=== PATIENT | male | born 1945 | race Two or more races ===

== ENCOUNTER → 2022-03-31 | Outpatient (CLI) | payer MEDICARE | END | disposition home or self-care (01) | LOC: LABWHC1 07:46 | PROVIDERS: ATTEND Urology | DX: C61 Malignant neoplasm of prostate (principal) | CPT/HCPCS: 36415; 84153 ==

== ENCOUNTER → 2023-03-16 | Outpatient (CLI) | payer MEDICARE ==
[2023-03-16 16:06] LABS: Prothrombin Time 10.2 sec (9.0-12.0)
[2023-03-16 22:22] LABS: HCT 40.3 % (37.2-50.0); HGB 13.5 d/dL (12.0-17.0); MCH 32.1 pg (27.0-32.0); MCHC 33.5 d/dL (32.0-37.0); MCV 95.7 FL (80.0-97.0); Mean Platelet Volume 10.4 FL (9.5-12.2); NRBC Per 100 WBC 0 X 10*3/uL (0.00-0.01); Platelet Count 191 X 10*3/uL (140-440); RBC 4.21 X 10*6/uL (4.10-5.60); RDW 13.4 % (11.5-14.5); WBC 6.96 X 10*3/uL (4.50-10.00)
[2023-03-17 00:19] LABS: ALT 29 U/L (8-49); AST 30 U/L (13-35); Albumin 4.6 d/dL (3.8-4.9); Albumin/Globulin Ratio 2.19 Ratio (1.60-3.17); Alkaline Phosphatase 65 U/L (41-126); BUN/Creat Ratio 16.38 Ratio (12.00-20.00); Blood Urea Nitrogen 21.3 mg/dL (9.0-27.0); Calcium 9.4 mg/dL (8.7-10.3); Carbon Dioxide 21.5 mmol/L (21.6-31.8); Chloride 102 mmol/L (96-109); Globulin 2.1 d/dL (1.6-3.3); Glucose 207 mg/dL (70-110); Potassium 4.6 mmol/L (3.5-5.5); Sodium 140 mmol/L (135-145); Total Bilirubin 0.7 mg/dL (0.3-1.2); Total Protein 6.7 d/dL (6.2-8.2)
[2023-03-17 04:27] LABS: Appearance,Urine Clear (Clear); Bacteria,Urine None Seen (None Seen); Bilirubin,Urine Negative (Negative); Blood,Urine Negative (Negative); Color,Urine Dark Yellow (Yellow); Ketones,Urine Trace (Negative); Nitrite,Urine Negative (Negative); PH, Urine 5.5; Specific Gravity,Urine 1.024 (1.001-1.030)
== END | disposition home or self-care (01) ==
LOC: LABPAT 14:14
PROVIDERS: ATTEND Orthopaedic Surgery
DX: Z01.812 Encounter for preprocedural laboratory examination (principal); M16.11 Unilateral primary osteoarthritis, right hip
CPT/HCPCS: 36415; 80053; 81001; 85027; 85610; 85730; 87070; 93005

== ENCOUNTER 2023-03-24 05:33 | Day surgery (SDC) | payer MEDICARE ==
[2023-03-18 12:11] VITALS: BMI 34.0
[~2023-03-24 05:33] MED LIST: ACETAMINOPHEN TAB 500 MG TAB PO PRN; GABAPENTIN 300 MG CAP PO PRN; MELOXICAM 7.5 MG TAB PO PRN; TRANEXAMIC 1,000 MG/100ML-NACL 1,000 MG in SALINE 1 100ML.BAG IVPB PRN
[2023-03-24] MEDS ORDERED: ONDANSETRON 4 MG/2 ML VIAL ONE (06:02)
[2023-03-24] MEDS ORDERED: LACTATED RINGERS 1,000 ML IV ONE ×2 (06:06→08:02)
[2023-03-24] MEDS ORDERED: DEXAMETHASONE SOD PHOSPHATE 4 MG/ML 1 ML VIAL IVP ONE ×2 (06:07→06:44)
[2023-03-24 06:28] LABS: Glucose,Whole Blood 213 mg/dL (70-110)
[2023-03-24] MEDS ORDERED: MIDAZOLAM 2 MG/2 ML VIAL IVP ONE (06:35)
[2023-03-24] MEDS ORDERED: fentaNYL (PF) 50 MCG/ML 2 ML AMP IVP ONE (06:35)
[2023-03-24] MEDS ORDERED: INSULIN ASPART (NovoLOG) 100 UNIT/ML VIAL SQ ONE (06:45)
[2023-03-24] MEDS ORDERED: PROPOFOL 10 MG/ML 20 ML VIAL IV ONE (06:59)
[2023-03-24] MEDS ORDERED: ROPIVACAINE 5 MG/ML 30 ML VIAL ONE (06:59)
[2023-03-24] MEDS ORDERED: MIDAZOLAM 2 MG/2 ML VIAL ONE (06:59)
[2023-03-24] MEDS ORDERED: TRANEXAMIC 1,000 MG/100ML-NACL PREMIX BAG ONE (06:59)
[2023-03-24] MEDS ORDERED: ceFAZolin 1,000 MG in SODIUM CHLORIDE 0.9% 1,000 ML IRRIGATION ONE (06:59)
[2023-03-24] MEDS ORDERED: fentaNYL (PF) 50 MCG/ML 2 ML AMP ONE (06:59)
--- NOTE | 2023-03-24 07:24 | P.ANPRN ---
Procedure Note - Anesthesia - Nerve Block Performed Right Magen Single Time Out Performed: Yes ([id number]) Date of Procedure: 03/24/23 Procedure Start Time: 06:35 Procedure Stop Time: 06:39 Location of Patient: PreOp Indication: Acute Post-Operative Pain, Requested by Surgeon Specifically requested for management of pain by DrAkila: Chris Banks Sedation Type: Sedate with meaningful contact maintained Preparation: Sterile Prep, Sterile Dressing Position: Supine Catheter: None Needle Types: Pajunk Needle Gauge: 21 Ultrasound used to visualize needle placement: Yes Ultrasound used to observe medication spread: Yes Injectate: 0.5% Ropivacaine (see comment for volume) (30cc) Blood Aspirated: No Pain Paresthesia on Injection Noted: No Resistance on Injection: Normal Image Stored and Saved: Yes Events: Uneventful and Well Tolerated
[2023-03-24] MEDS ORDERED: ROPIVACAINE 5 MG/ML 30 ML VIAL MISCELLANE ONE ×2 (07:29→08:01)
--- NOTE | 2023-03-24 08:09 | P.OP ---
Date of Procedure: 03/24/23 Preoperative Diagnosis: Severe osteoarthritis right hip Postoperative Diagnosis: Severe osteoarthritis right hip Procedure(s) Performed: Right total hip arthroplasty with a direct anterior approach Implants: [employer] Polarstem standard size 4 with a collar [employer] R3, 3 hole hemispherical acetabular shell, 54 mm [employer] Reflection 6.5 mm cancellus screw, 20 mm 2 [employer] R3, XLPE 20 acetabular liner [employer] Oxinium femoral head 36 mm, +0 All components were press-fit. The articulation is Oxinium on polyethylene. Anesthesia: spinal Surgeon: John Young [employer] Aircraft Mechanic #1: Margaret Macdonald Estimated Blood Loss (ml): 100 Pathology: none sent Condition: stable Disposition: PACU Indications for Procedure: After failure of conservative treatment we discussed the surgical and nonsu rgical treatment options at length. Patient wishes to proceed with a total hip arthroplasty with a direct anterior approach. Complications specific to this procedure were discussed at length, including but not limited to infection, leg length discrepancy, dislocation, nerve injury, and fracture. Covid-19 was also discussed at length with the patient, and they are aware of the current policies and procedures. The patient was given the option of delaying surgery, but they elect to proceed knowing these risks. Patient is aware of all these complications and informed consent was obtained Operative Findings: The operative findings are consistent with severe osteoarthritis of the right hip Description of Procedure: The patient was seen and evaluated in the preoperative area and the consent was reviewed. The operative site was marked with a skin marker. The patient verified the procedure and operative site. A MISA block was placed by anesthesia in the preoperative area. The patient was then brought to the operating room and given preoperative antibiotics intravenously. 1 g of Tranexamic acid was also given intravenously. A spinal anesthetic was administered by the anesthesia department. The patient was then placed on the [place] table with the bony prominences well-padded. The hip area was then prepped with a ChloraPrep solution and draped in the usual sterile fashion. A universal timeout was then performed, which confirmed the patient's name, surgical site, ALLERGIES, and procedure being performed on the consent. Next the incision site was located at 1 cm distal and 4 cm lateral to the anterior superior iliac spine. The skin and subcutaneous tissues were sharply incised. Incision was carefully dissected down to the fascia overlying the tensor fascia anthony muscle. This fascia was then incised in line with the muscle fibers. Care was taken to stay laterally in order to avoid injuring the lateral femoral cutaneous nerve. Next, using blunt finger dissection, the tensor fascia anthony muscle was dissected off its investing fascia. The muscle was then carefully retracted laterally with a cobra retractor over the lateral neck of the femur. Next, the circumflex vessels were identified and cauterized using the Aquamantis device. The anterior hip capsule was then exposed. The capsule was then opened and an inverted T fashion. The retractors were then placed intracapsularly. The retractors were maintained intracapsular throughout the procedure. The proximal femur was then visualized. Fluoroscopic x-rays were then taken in order to evaluate the preoperative leg lengths. A small amount of traction was placed on the leg. The femoral neck was then osteotomized at the appropriate level above the lesser trochanter. A small wedge of bone was then removed from the remaining femoral head. Next, using a corkscrew the femoral head was removed from the acetabulum. On gross visual inspection, the femoral head had complete loss of articular cartilage and multiple periarticular osteophytes. The femoral head was then measured. Attention was then turned to the acetabulum. The acetabulum was exposed and any remaining labrum was excised. Sequential reaming of the acetabulum was performed using fluoroscopic guidance until there was a good bed of bleeding cancellus bone. When the appropriate size was reached, a trial was then placed. The position and fit of the trial was checked with fluoroscopy. The trial was then removed. Then, using fluoroscopic guidance, the final implant was impacted at 20 of anteversion and 40 of abduction, and fully seated in the acetabulum. 2 screws were then placed in the acetabulum. Again fluoroscopy was used to check position of the screws. Next, the liner was then impacted, with a 20 elevated liner located in the anterior superior quadrant. Component locking was confirmed. Attention was then directed to the femur. With the aid of the [place] table, the femur was externally rotated to approximately 130, extended, and adducted under the opposite leg. A side hook was then placed under the proximal femur, and the side hook elevator was used to elevate the proximal femur while releasing the capsule. Retractors were then placed. A capsular release was performed, as well as a release of the conjoined tendon, which afforded excellent v isualization of the proximal femur. Next, a box osteotome was used to lateralize the proximal femur. A decorator hand was then used to locate the femoral canal. Sequential broaching was then performed with appropriate size which afforded excellent fixation in the proximal femur. A trial was then placed with appropriate head and neck, and the hip was gently reduced with the aid of the [place] table. Fluoroscopy was then used to check position of the components, as well as to evaluate the leg lengths and offset. The leg lengths and offset were measured as closely as possible to ensure stability of the hip. The hip was then gently dislocated and the trials were then removed. Final implants were then impacted and the hip was again reduced. Final fluoroscopic x-rays confirmed that the components were in anatomic position. The leg lengths and offset were measured and were found to coincide with the trial measurements. The hip was also taken through range of motion, and found to be stable. The hip was then copiously irrigated with antibiotic solution with pulsatile lavage. The hip was then irrigated with Irrisept solution. The soft tissues were then injected with a ropivacaine solution. A second dose of 1 g of Tranexamic acid was also given intravenously. The fascia was then closed with 2-0 strata fix suture. The subcutaneous tissue was closed with 3-0 Vicryl. The subcuticular tissue was closed with 3-0 strata fix suture. The skin was then closed with Exofin skin glue. After the glue and dried, and Optifoam silver impregnated dressing was applied. The patient was t hen transferred to the recovery room in stable condition. The kitchen assistant IRASEMA Kraus was required due to the complexity of surgery, and the need for skilled surgical appliances salesperson for positioning, draping, exposure, retraction, and closure of the wound.
[2023-03-24 08:30] LABS: Glucose,Whole Blood 170 mg/dL (70-110)
[2023-03-24] MEDS ORDERED: MAGNESIUM HYDROXIDE 2,400 MG/30 ML CUP PO PRN (08:34)
[2023-03-24] MEDS ORDERED: ONDANSETRON 4 MG/2 ML VIAL IVP PRN (08:34)
[2023-03-24] MEDS ORDERED: NALOXONE 0.4 MG/ML 1 ML VIAL IV PRN (08:34)
[2023-03-24] MEDS ORDERED: HYDROmorphone 0.5 MG/0.5 ML SYRINGE IVP PRN ×3 (08:34)
[2023-03-24] MEDS ORDERED: HYDROcodone/APAP 7.5-325MG 1 EACH TAB PO PRN (08:36)
--- NOTE | 2023-03-24 08:47 | FL ---
EXAMINATION TYPE: FL guidance operating room DATE OF EXAM: 03/24/2023 HISTORY: Fluoroscopy time Total dose area product (DAP) in uGy*m?, mGy*cm? (or similar): 4.3916 IMPRESSION: 1. Fluoroscopy time.
--- NOTE | 2023-03-24 09:05 | XR ---
EXAMINATION TYPE: XR Hip Limited RT DATE OF EXAM: 03/24/2023 COMPARISON: NONE HISTORY: Postop TECHNIQUE: One view submitted. FINDINGS: There is postsurgical change compatible hip replacement surgery. IMPRESSION: 1. Postoperative change.
[2023-03-24] MEDS: lisinopriL 10 MG TAB PO SCH (14:18)
[2023-03-24] MEDS: HYDROcodone/APAP 7.5-325MG 1 EACH TAB PO PRN (16:26)
[2023-03-24] MEDS ORDERED: hydrALAZINE HCL 25 MG TAB PO PRN (16:41)
[2023-03-24] MEDS: amLODIPine 5 MG TAB PO SCH (16:45)
--- NOTE | 2023-03-24 17:00 | P.CONS ---
History of Present Illness - Reason for Consult Consult date: 03/24/23 - Chief Complaint medical management - History of Present Illness 77-year-old man with medical history of hypertension, hyperlipidemia, diabetes presented for evaluation of right total hip arthroplasty. Medicine was consulted for medical management. Patient has no complaints at this time, denies pain, fevers, chills, dyspnea. Denies chest pain. Denies palpitations. Upon initial evaluation, patient was afebrile, 185/97, heart rate 90, 96% on room air. Labs show blood sugar of 170-213. Hip x-ray shows postsurgical change compatible with hip replacement surgery. All Systems reviewed and pertinent positives and negatives noted in HPI, all other symptoms are negative Gen: in no apparent distress, resting comfortably in bed Eyes: PERRL, no scleral injection or icterus HENT: normocephalic, atraumatic, good hearing acuity, moist mucous membranes Neck: no tracheal deviation, full range of motion Resp: good air exchange, breathing comfortably with no accessory muscle use, no tactile fremitus CVS: good distal perfusion x 4, no pitting edema GI: soft, NTTP, ND, no hepatosplenomegaly : no suprapubic tenderness, no CVAT, victoria catheter not present MSK: no clubbing, no cyanosis, no noted contractures of extremities Skin: no noted rashes, petechiae; temperature of skin is appropriate Neuro: moving all extremities without signs of weakness, CN II-XII intact Psych: cooperative, euthymic mood, insight and judgment intact Labs and imaging as above Assessment: Hypertensive urgency Hyperlipidemia Diabetes type 2 with hyperglycemia Status post right hip total arthroplasty Plan: Vital signs, labs, images reviewed as in HPI Add amlodipine 5 mg daily, resume home lisinopril 10 mg daily with first dose now Add hydralazine 25 mg every 6 hours when necessary for SBP greater than 180, DBP greater than 100 Sliding scale insulin CBC, basic metabolic panel, magnesium tomorrow Patient is full code Past Medical History Past Medical History: Cancer, Diabetes Mellitus, Hearing Disorder / Deafness, Hypertension, Osteoarthritis (OA) Additional Past Medical History / Comment(s): Hearing aid use. Diarrhea for last 6 months on and off. Hx prostate cancer about 2 yrs ago with radiation. History of Any Multi-Drug Resistant Organisms: None Reported Past Surgical History: Appendectomy Past Anesthesia/Blood Transfusion Reactions: No Reported Reaction Past Psychological History: No Psychological Hx Reported Smoking Status: Former smoker Past Alcohol Use History: Rare Additional Past Alcohol Use History / Comment(s): Quit smoking 40 yrs ago. Past Drug Use History: None Reported - Past Family History Mother Family Medical History: Cancer Additional Family Medical History / Comment(s): Breast cancer. Medications and Allergies Home Medications Medication Instructions Recorded Confirmed Type Acetaminophen Tab [Tylenol Tab] 500 - 1,000 mg PO Q4-6H PRN 03/18/23 03/24/23 History Ibuprofen (Unknown Dose) 1 tab PO DIRECTED PRN 03/18/23 03/18/23 History Loperamide [Imodium] 2 mg PO DIRECTED PRN 03/18/23 03/24/23 History glipiZIDE 10 mg PO QAM 03/18/23 03/24/23 History lisinopriL [Zestril] 10 mg PO QAM 03/18/23 03/24/23 History metFORMIN HCL 1,000 mg PO BID 03/18/23 03/24/23 History Aspirin 325 mg PO BID #60 tab 03/24/23 Rx HYDROcodone/APAP 7.5-325MG [[place] 1 - 2 tab PO Q6H PRN #32 tab 03/24/23 Rx 7.5-325] Sennosides [Senokot] 2 tab PO DAILY PRN #60 tablet 03/24/23 Rx Allergies Allergy/AdvReac Type Severity Reaction Status Date / Time Penicillins Allergy Unknown Verified 03/24/23 05:58 Childhood Physical Exam Osteopathic Statement: *. No significant issues noted on an osteopathic structural exam other than those noted in the History and Physical/Consult. Vitals: Vital Signs Temp Pulse Resp BP BP Pulse Ox 03/24/23 16:21 197/106 03/24/23 14:00 192/99 03/24/23 13:43 97.5 F L 90 18 185/97 96 03/24/23 13:17 87 18 183/102 97 03/24/23 13:00 97.6 F 80 16 182/102 98 03/24/23 11:15 77 16 155/79 97 03/24/23 11:00 62 16 151/80 97 03/24/23 10:30 59 L 16 153/88 98 03/24/23 10:00 73 16 156/82 99 03/24/23 09:30 60 16 143/76 99 03/24/23 09:15 58 L 16 139/73 99 03/24/23 09:00 56 L 16 121/66 99 03/24/23 08:45 58 L 16 123/73 98 03/24/23 08:35 59 L 16 117/65 98 03/24/23 08:26 64 16 108/66 95 03/24/23 06:40 64 18 129/67 97 03/24/23 06:16 97.5 F L 69 18 187/91 95 Intake and Output 03/24/23 03/24/23 03/24/23 06:59 14:59 22:59 Intake Total 1051 600 Output Total 100 Balance 1051 500 Intake: IV 1051 400 Oral 200 Output: Estimated Blood Loss 100 Other: Weight 101.2 kg 101.2 kg Results Labs: Abnormal Lab Results - Last 24 Hours (Table) 03/24/23 03/24/23 Range/Units 06:27 08:29 POC Glucose (mg/dL) 213 H 170 H (70-110) mg/dL
[2023-03-24] MEDS: INSULIN ASPART (NovoLOG) 100 UNIT/ML VIAL SQ SCH (17:46)
[2023-03-24] MEDS ORDERED: SENNOSIDES-DOCUSATE SODIUM 1 EACH TAB PO SCH (21:00)
[2023-03-24 21:06] LABS: Glucose,Whole Blood 333 mg/dL (70-110)
[2023-03-24] MEDS: ASPIRIN 325 MG TAB PO SCH (21:11)
[2023-03-25 06:17] LABS: Glucose,Whole Blood 254 mg/dL (70-110)
[2023-03-25] MEDS: HYDROcodone/APAP 7.5-325MG 1 EACH TAB PO PRN (06:26)
[2023-03-25] MEDS: INSULIN ASPART (NovoLOG) 100 UNIT/ML VIAL SQ SCH ×2 (06:26→12:24)
[2023-03-25 08:24] VITALS: BP 122/69; PULSE 90; RESP 16; TEMP 98.8
[2023-03-25] MEDS: lisinopriL 10 MG TAB PO SCH (08:50)
[2023-03-25] MEDS: ASPIRIN 325 MG TAB PO SCH (08:50)
[2023-03-25] MEDS: amLODIPine 5 MG TAB PO SCH (08:50)
--- NOTE | 2023-03-25 10:12 | P.DS ---
Providers Expected date of discharge: 03/25/23 Attending physician: John Young Consults: 03/24/23 08:34 Consult Physician Routine Consulting Provider: Greta Campbell Consult Reason/Comments: medical management Do you want consulting provider notified?: Yes Primary care physician: Ton Nash - Discharge Diagnosis(es) (1) S/P total hip arthroplasty Current Visit: Yes Status: Acute (2) Osteoarthritis of right hip Current Visit: Yes Status: Acute Hospital Course: This is a 77-year-old male with known history of degenerative arthritis of the right hip. The patient presented for evaluation as an outpatient. After discussion and consideration patient elects to proceed with total hip arthroplasty. The patient is seen preoperatively by Dr. Young and medically cleared for surgery by their primary care physician. [facility] 03[facility]24[facility]23 for total hip arthroplasty. The procedure is performed without complication or sequelae. The patient is doing well postoperatively. Labs and vital signs are stable on day of discharge. On day of discharge patient's hip incision is healing well. There is minimal erythema. There is no drainage noted at this time. There is minimal soft tissue swelling to the hip and thigh. Patient has full foot and ankle motion without difficulty or pain. Calf is soft and nontender to palpation. Neurovascular status to the right lower extremity is intact. Patient is discharged home in good condition. Please see med rec for accurate list of home medications. Plan - Discharge Summary Discharge Rx Participant: No New Discharge Prescriptions: New Aspirin 325 mg PO BID #60 tab Sennosides [Senokot] 2 tab PO DAILY PRN #60 tablet PRN Reason: Constipation HYDROcodone/APAP 7.5-325MG [[place] 7.5-325] 1 - 2 tab PO Q6H PRN #32 tab PRN Reason: Pain No Action Acetaminophen Tab [Tylenol Tab] 500 - 1,000 mg PO Q4-6H PRN PRN Reason: Pain metFORMIN HCL 1,000 mg PO BID lisinopriL [Zestril] 10 mg PO QAM glipiZIDE 10 mg PO QAM Ibuprofen (Unknown Dose) 1 tab PO DIRECTED PRN PRN Reason: Pain Loperamide [Imodium] 2 mg PO DIRECTED PRN PRN Reason: Diarrhea Discharge Medication List Acetaminophen Tab [Tylenol Tab] 500 - 1,000 mg PO Q4-6H PRN 09/27/23 [History] Ibuprofen (Unknown Dose) 1 tab PO DIRECTED PRN 03/18/23 [History] Loperamide [Imodium] 2 mg PO DIRECTED PRN 03/18/23 [History] glipiZIDE 10 mg PO QAM 03/18/23 [History] lisinopriL [Zestril] 10 mg PO QAM 03/18/23 [History] metFORMIN HCL 1,000 mg PO BID 03/18/23 [History] Aspirin 325 mg PO BID #60 tab 03/24/23 [Rx] HYDROcodone/APAP 7.5-325MG [[place] 7.5-325] 1 - 2 tab PO Q6H PRN #32 tab 03/24/23 [Rx] Sennosides [Senokot] 2 tab PO DAILY PRN #60 tablet 03/24/23 [Rx] Follow up Appointment(s)/Referral(s): [facility] [NON-STAFF] - As Needed John Young DO [Doctor of Osteopathic Medicine] - 2 Weeks Activity/Diet/Wound Care/Special Instructions: Weightbearing as tolerated with walker. Leave dressing intact. Dressing may be removed by home care nurse or by patient in 7 days. Then change dressing twice daily until follow up. May shower with initial dressing intact and after removal. If dressing become saturated, please remove. Please take aspirin 325mg twice daily for 30 days to prevent blood clots. Recommend use of compression stockings daily until follow up to help prevent swelling and blood clots. May remove at night before sleeping. Please follow-up with [facility] in 2 weeks and call with any questions or concerns, . Discharge Disposition: HOME WITH HOME HEALTH SERVICES
[2023-03-25 11:28] LABS: Glucose,Whole Blood 381 mg/dL (70-110)
[2023-03-25 13:48] LABS: Magnesium 1.6 mg/dL (1.5-2.4)
[2023-03-25 13:51] LABS: BUN/Creat Ratio 14.31 Ratio (12.00-20.00); Basophils # (A) 0.01 X 10*3/uL (0.00-0.10); Basophils % (A) 0.1 %; Blood Urea Nitrogen 18.6 mg/dL (9.0-27.0); Calcium 8.8 mg/dL (8.7-10.3); Carbon Dioxide 22.4 mmol/L (21.6-31.8); Chloride 100 mmol/L (96-109); Eosinophils # (A) 0.02 X 10*3/uL (0.04-0.35); Eosinophils % (A) 0.3 %; Glucose 251 mg/dL (70-110); HCT 35.2 % (37.2-50.0); HGB 12.1 d/dL (12.0-17.0); Lymphocytes # (A) 1.36 X 10*3/uL (0.90-5.00); Lymphocytes % (A) 17.3 %; MCH 32.5 pg (27.0-32.0); MCHC 34.4 d/dL (32.0-37.0); MCV 94.6 FL (80.0-97.0); Mean Platelet Volume 10.3 FL (9.5-12.2); Monocytes # (A) 0.63 X 10*3/uL (0.20-1.00); NRBC Per 100 WBC 0 X 10*3/uL (0.00-0.01); Neutrophils # (A) 5.83 X 10*3/uL (1.80-7.70); Platelet Count 165 X 10*3/uL (140-440); Potassium 4.3 mmol/L (3.5-5.5); RBC 3.72 X 10*6/uL (4.10-5.60); RDW 13.2 % (11.5-14.5); Sodium 137 mmol/L (135-145); WBC 7.87 X 10*3/uL (4.50-10.00)
== END 2023-03-25 14:06 | disposition home health service (06) ==
LOC: OR 05:33 → 4SSUR 08:26 → OR 03-25 14:06
PROVIDERS: ATTEND Orthopaedic Surgery
DX: M16.11 Unilateral primary osteoarthritis, right hip (principal); G89.18 Other acute postprocedural pain; I10 Essential (primary) hypertension; E78.5 Hyperlipidemia, unspecified; E11.65 Type 2 diabetes mellitus with hyperglycemia; Z85.46 Personal history of malignant neoplasm of prostate; Z90.89 Acquired absence of other organs; Z87.891 Personal history of nicotine dependence; Z80.3 Family history of malignant neoplasm of breast; Z88.0 Allergy status to penicillin; Z79.84 Long term (current) use of oral hypoglycemic drugs; Z79.82 Long term (current) use of aspirin; Z79.899 Other long term (current) drug therapy
CPT/HCPCS: 97161; 97166; 64447; 86900; 86901; 80048; 83735; 85025; 86850; 73501; 27130; C1776; J2250; J1100; J0690 ×2; J2405; J3010; J2795

== ENCOUNTER 2023-12-24 13:56 | Inpatient (IN) | payer MEDICARE ==
[2023-12-24] MEDS: DILTIAZEM 125 MG in SODIUM CHLORIDE 0.9% 100 ML IV SCH (14:28)
[2023-12-24] MEDS: DILTIAZEM DRIP BOLUS FROM BAG 1 MG SOLN IV ONE ×2 (14:28→17:04)
--- NOTE | 2023-12-24 14:31 | ED ---
General Adult HPI - General Chief complaint: Chest Pain Stated complaint: Chest tightness,SOB Time Seen by Provider: 12/24/23 14:00 Source: patient, family, RN notes reviewed, old records reviewed Mode of arrival: wheelchair Limitations: no limitations - History of Present Illness Initial comments: This is an 78-year-old male who presents to the emergency department the past medical history significant for diabetes and hypertension. Patient states today he all of a sudden started having some chest tightness some shortness of breath and a little diaphoretic. Patient states has had this happen a couple times before but after he rests it usually goes away. Patient states today it started that Wrist and it has gotten progressively worse. Patient denies any fever or chills. Patient denies any abdominal pain. Patient [place] any nausea vomiting. Patient has any recent cough. - Related Data Home Medications Medication Instructions Recorded Confirmed Acetaminophen Tab [Tylenol] 500 - 1,000 mg PO Q4-6H PRN 03/18/23 03/24/23 Loperamide [Imodium] 2 mg PO DIRECTED PRN 03/18/23 03/24/23 glipiZIDE 10 mg PO QAM 03/18/23 03/24/23 lisinopriL [Zestril] 10 mg PO QAM 03/18/23 03/24/23 metFORMIN HCL 1,000 mg PO BID 03/18/23 03/24/23 Previous Rx's Medication Instructions Recorded Aspirin 325 mg PO BID #60 tab 03/24/23 HYDROcodone/APAP 7.5-325MG [[place] 1 - 2 tab PO Q6H PRN #32 tab 03/24/23 7.5-325] Sennosides [Senokot] 2 tab PO DAILY PRN #60 tablet 03/24/23 amLODIPine [Norvasc] 5 mg PO DAILY #30 tab 03/25/23 Allergies Allergy/AdvReac Type Severity Reaction Status Date / Time Penicillins Allergy Unknown Verified 03/24/23 05:58 Childhood Review of Systems ROS Statement: Those systems with pertinent positive or pertinent negative responses have been documented in the HPI. ROS Other: All systems not noted in ROS Statement are negative. Past Medical History Past Medical History: Diabetes Mellitus, Hypertension, Prostate Disorder Additional Past Medical History / Comment(s): prostate History of Any Multi-Drug Resistant Organisms: None Reported Past Surgical History: Appendectomy, Orthopedic Surgery Additional Past Surgical History / Comment(s): hip replacement, Smoking Status: Former smoker Past Alcohol Use History: None Reported Past Drug Use History: None Reported General Exam - General Exam Comments Initial Comments: GENERAL: Patient is well-developed and well-nourished. Patient is nontoxic and well- hydrated and is in mild distress. ENT: Neck is soft and supple. No significant lymphadenopathy is noted. Oropharynx is clear. Moist mucous membranes. Neck has full range of motion without eliciting any pain. EYES: The sclera were anicteric and conjunctiva were pink and moist. Extraocular movements were intact and pupils were equal round and reactive to light. Eyelids were unremarkable. PULMONARY: Unlabored respirations. Good breath sounds bilaterally. No audible rales rhonchi or wheezing was noted. CARDIOVASCULAR: Patient is tachycardic at about 150 beats a minute and is irregular ABDOMEN: Soft and nontender with normal bowel sounds. SKIN: Skin is clear with no lesions or rashes and otherwise unremarkable. NEUROLOGIC: Patient is alert and oriented x3. Cranial nerves II through XII are grossly intact. Motor and sensory are also intact. Normal speech, volume and content. Symmetrical smile. MUSCULOSKELETAL: Normal extremities with adequate strength and full range of motion. No lower extremity swelling or edema. No calf tenderness. LYMPHATICS: No significant lymphadenopathy is noted PSYCHIATRIC: Normal psychiatric evaluation. Limitations: no limitations Course Vital Signs 12/24/23 12/24/23 12/24/23 13:58 14:19 14:22 Temperature 98.4 F Pulse Rate 118 H 158 H Pulse Rate [ 155 H Cardiology Manager ] Respiratory 18 22 Rate Blood Pressure 146/86 O2 Sat by Pulse 98 88 L Oximetry 12/24/23 12/24/23 12/24/23 14:30 14:45 15:00 Temperature Pulse Rate 149 H 137 H Pulse Rate [ Cardiology Manager ] Respiratory 24 24 Rate Blood Pressure 137/116 131/103 129/93 O2 Sat by Pulse 90 L 93 L Oximetry 12/24/23 12/24/23 12/24/23 15:15 15:30 15:45 Temperature Pulse Rate 141 H 151 H 149 H Pulse Rate [ Cardiology Manager ] Respiratory 33 H 47 H 31 H Rate Blood Pressure 148/110 131/109 145/98 O2 Sat by Pulse 93 L 94 L 92 L Oximetry 12/24/23 12/24/23 16:00 16:15 Temperature Pulse Rate 151 H 142 H Pulse Rate [ Cardiology Manager ] Respiratory 35 H 25 H Rate Blood Pressure 141/106 151/103 O2 Sat by Pulse 91 L 90 L Oximetry Medical Decision Making - Medical Decision Making EKG is interpreted by myself. EKG shows atrial fibrillation at with a rapid ventricular response at 150 beats a minute QRS 142 QT interval 315 QTc is 400 Was pt. sent in by a medical professional or institution (IRASEMA Macdonald, MATERIAL ASSISTANT, urgent care, hospital, or penitentiary...) When possible be specific @ -No Did you speak to anyone other than the patient for history (EMS, parent, family, police, friend...)? What history was obtained from this source @ -No Did you review nursing and triage notes (agree or disagree)? Why? @ -I reviewed and agree with nursing and triage notes Were old charts reviewed (outside hosp., previous admission, EMS record, old EKG, old radiological studies, urgent care reports/EKG's, penitentiary records)? Report findings @ -No old charts were reviewed Differential Diagnosis? @ -Differential Chest Pain: Stable Angina, Unstable Angina, STEMI, NSTEMI Aortic Dissection, Pneumothorax, Musculoskeletal, Esophageal Spasm GERD, Cholecystitis, Pancreatitis, Zoster, this is not meant to be an all-inclusive list. EKG interpreted by me (3pts min.). @ -As above X-rays interpreted by me (1pt min.). @ -Chest x-ray shows a right middle lobe pneumonia CT interpreted by me (1pt min.). @ -None done U/S interpreted by me (1pt. min.). @ -None done What testing was considered but not performed or refused? (CT, X-rays, U/S, labs)? Why? @ -None What meds were considered but not given or refused? Why? @ -None Did you discuss the management of the patient with other professionals (professionals i.e. IRASEMA Macdonald, MATERIAL ASSISTANT, lab, RT, psych nurse, manager social work, md psychiatry, teacher, strategic debriefing officer, disease case manager rn)? Give summary @ -Spoke with Dr. House he agreed to admit the patient admit the patient with admitting orders Was smoking cessation discussed for >3mins.? @ -No Was critical care preformed (if so, how long)? @ -No Were there social determinants of health that impacted care today? How? (Homelessness, low income, unemployed, alcoholism, drug addiction, transportation, low edu. Level, literacy, decrease access to med. care, snf, rehab)? @ -No Was there de-escalation of care discussed even if they declined (Discuss DNR or withdrawal of care, Hospice)? DNR status @ -No What co-morbidities impacted this encounter? (DM, HTN, Smoking, COPD, CAD, Cancer, CVA, ARF, Chemo, Hep., AIDS, mental health diagnosis, sleep apnea, morbid obesity)? @ -None Was patient admitted / discharged? Hospital course, mention meds given and route, prescriptions, significant lab abnormalities, going to OR and other pertinent info. @ -Patient was found to be in atrial fibrillation with rapid ventricular response and I gave the patient Cardizem as well as heparin. Patient's troponin was mildly elevated so I repeated that as an inpatient. Patient also had what appeared to be a pneumonia on the x-ray so I started the patient on antibiotics Undiagnosed new problem with uncertain prognosis? @ -No Drug Therapy requiring intensive monitoring for toxicity (Heparin, Nitro, Insulin, Cardizem)? @ -No Were any procedures done? @ -No Diagnosis/symptom? @ -Atrial fibrillation with rapid ventricular response Acute, or Chronic, or Acute on Chronic? @ -Acute Uncomplicated (without systemic symptoms) or Complicated (systemic symptoms)? @ -Default Side effects of treatment? @ -No Exacerbation, Progression, or Severe Exacerbation? @ -No Poses a threat to life or bodily function? How? (Chest pain, [place], MA, pneumonia, PE, COPD, DKA, ARF, appy, cholecystitis, CVA, Diverticulitis, Homicidal, Suicidal, threat to staff... and all critical care pts) @ -Yes this can lead to endorgan dysfunction Diagnosis/symptom? @ -Pneumonia Acute, or Chronic, or Acute on Chronic? @ -Acute Uncomplicated (without systemic symptoms) or Complicated (systemic symptoms)? @ -Default Side effects of treatment? @ -None Exacerbation, Progression, or Severe Exacerbation] @ -No Poses a threat to life or bodily function? @ -Yes this can lead to sepsis and endorgan dysfunction - Lab Data Result diagrams: 12/24/23 14:23 12/24/23 14:23 Lab Results 07/10/1312/24/23 12/24/23 Range/Units 14:23 14:23 14:23 WBC 8.8 (3.8-10.6) k/uL RBC 4.02 L (4.30-5.90) m/uL Hgb 12.8 L (13.0-17.5) gm/dL Hct 39.1 (39.0-53.0) % MCV 97.2 (80.0-100.0) fL MCH 31.9 (25.0-35.0) pg MCHC 32.8 (31.0-37.0) g/dL RDW 13.9 (11.5-15.5) % Plt Count 200 (150-450) k/uL MPV 9.0 Neutrophils % 81 % Lymphocytes % 13 % Monocytes % 5 % Eosinophils % 0 % Basophils % 0 % Neutrophils # 7.1 (1.3-7.7) k/uL Lymphocytes # 1.2 (1.0-4.8) k/uL Monocytes # 0.4 (0-1.0) k/uL Eosinophils # 0.0 (0-0.7) k/uL Basophils # 0.0 (0-0.2) k/uL PT 11.3 (10.0-12.5) sec INR 1.0 (<1.2) APTT 24.3 (22.0-30.0) sec Sodium 136 L (137-145) mmol/L Potassium 4.9 (3.5-5.1) mmol/L Chloride 109 H (98-107) mmol/L Carbon Dioxide 19 L (22-30) mmol/L Anion Gap 8 mmol/L BUN 21 H (9-20) mg/dL Creatinine 1.18 (0.66-1.25) mg/dL Est GFR (CKD-EPI)AfAm 67 (>60 ml/min/1.73 sqM) Est GFR (CKD-EPI)NonAf 58 (>60 ml/min/1.73 sqM) Glucose 258 H (74-99) mg/dL Calcium 8.9 (8.4-10.2) mg/dL Magnesium 1.6 (1.6-2.3) mg/dL Total Bilirubin 1.7 H (0.2-1.3) mg/dL AST 18 (17-59) U/L ALT 14 (4-49) U/L Alkaline Phosphatase 55 (38-126) U/L Troponin I (0.000-0.034) ng/mL Total Protein 6.1 L (6.3-8.2) g/dL Albumin 4.0 (3.5-5.0) g/dL TSH 2.380 (0.465-4.680) mIU/L Influenza Type A (PCR) (Not Detectd) Influenza Type B (PCR) (Not Detectd) RSV (PCR) (Not Detectd) SARS-CoV-2 (PCR) (Not Detectd) 12/24/23 12/24/23 Range/Units 14:23 15:07 WBC (3.8-10.6) k/uL RBC (4.30-5.90) m/uL Hgb (13.0-17.5) gm/dL Hct (39.0-53.0) % MCV (80.0-100.0) fL MCH (25.0-35.0) pg MCHC (31.0-37.0) g/dL RDW (11.5-15.5) % Plt Count (150-450) k/uL MPV Neutrophils % % Lymphocytes % % Monocytes % % Eosinophils % % Basophils % % Neutrophils # (1.3-7.7) k/uL Lymphocytes # (1.0-4.8) k/uL Monocytes # (0-1.0) k/uL Eosinophils # (0-0.7) k/uL Basophils # (0-0.2) k/uL PT (10.0-12.5) sec INR (<1.2) APTT (22.0-30.0) sec Sodium (137-145) mmol/L Potassium (3.5-5.1) mmol/L Chloride (98-107) mmol/L Carbon Dioxide (22-30) mmol/L Anion Gap mmol/L BUN (9-20) mg/dL Creatinine (0.66-1.25) mg/dL Est GFR (CKD-EPI)AfAm (>60 ml/min/1.73 sqM) Est GFR (CKD-EPI)NonAf (>60 ml/min/1.73 sqM) Glucose (74-99) mg/dL Calcium (8.4-10.2) mg/dL Magnesium (1.6-2.3) mg/dL Total Bilirubin (0.2-1.3) mg/dL AST (17-59) U/L ALT (4-49) U/L Alkaline Phosphatase (38-126) U/L Troponin I 0.334 H* (0.000-0.034) ng/mL Total Protein (6.3-8.2) g/dL Albumin (3.5-5.0) g/dL TSH (0.465-4.680) mIU/L Influenza Type A (PCR) Not Detected (Not Detectd) Influenza Type B (PCR) Not Detected (Not Detectd) RSV (PCR) Not Detected (Not Detectd) SARS-CoV-2 (PCR) Not Detected (Not Detectd) Critical Care Time Critical Care Time: Yes Total Critical Care Time: 35 Disposition Clinical Impression: Atrial fibrillation with rapid ventricular response, Pneumonia Disposition: ADMITTED IP TO THIS HOSP Referrals: Ton Nash DO [Primary Care Provider] - 1-2 days Time of Disposition: 16:58
[2023-12-24 14:35] LABS: Basophils % (A) 0 %; Eosinophils % (A) 0 %; HCT 39.1 % (39.0-53.0); HGB 12.8 gm/dL (13.0-17.5); Lymphocytes # (A) 1.2 k/uL (1.0-4.8); Lymphocytes % (A) 13 %; MCH 31.9 pg (25.0-35.0); MCHC 32.8 g/dL (31.0-37.0); MCV 97.2 fL (80.0-100.0); Monocytes # (A) 0.4 k/uL (0-1.0); Monocytes % (A) 5 %; Neutrophils # (A) 7.1 k/uL (1.3-7.7); Neutrophils % (A) 81 %; Platelet Count 200 k/uL (150-450); RBC 4.02 m/uL (4.30-5.90); RDW 13.9 % (11.5-15.5); WBC 8.8 k/uL (3.8-10.6)
[2023-12-24] MEDS: HEPARIN SODIUM 1,000 UN/ML (10ML VL) IV ONE (14:38)
[2023-12-24 14:39] LABS: Partial Thromboplastin Time 24.3 sec (22.0-30.0); Prothrombin Time 11.3 sec (10.0-12.5)
[2023-12-24] MEDS: HEPARIN SOD,PORK IN 0.45% NACL 25,000 UNIT in 0.45% NACL 1 250ML.BAG IV SCH (14:44)
[2023-12-24 14:45] LABS: ALT 14 U/L (4-49); AST 18 U/L (17-59); African American GFR (CKD) 67 (>60 ml/min/1.73 sqM); Alkaline Phosphatase 55 U/L (38-126); Anion Gap 8 mmol/L; Blood Urea Nitrogen 21 mg/dL (9-20); Calcium 8.9 mg/dL (8.4-10.2); Carbon Dioxide 19 mmol/L (22-30); Chloride 109 mmol/L (98-107); Glucose 258 mg/dL (74-99); Magnesium 1.6 mg/dL (1.6-2.3); Non-African American GFR(CKD) 58 (>60 ml/min/1.73 sqM); Potassium 4.9 mmol/L (3.5-5.1); Sodium 136 mmol/L (137-145); Total Bilirubin 1.7 mg/dL (0.2-1.3); Total Protein 6.1 g/dL (6.3-8.2)
--- NOTE | 2023-12-24 15:26 | XR ---
EXAMINATION TYPE: XR chest 2V DATE OF EXAM: 12/24/2023 3:00 PM CLINICAL INDICATION:Male, 78 years old with history of dysrhythmia; COMPARISON: None TECHNIQUE: XR chest 2V Frontal and lateral views of the chest. FINDINGS: Lungs/Pleura: Increasing right lower medial airspace opacities. There is no evidence of pleural effus ion, focal consolidation, or pneumothorax. Pulmonary vascularity: Unremarkable. Heart/mediastinum: Cardiomediastinal silhouette is unremarkable. Musculoskeletal: No acute osseous pathology. IMPRESSION: Right middle lobe airspace opacities, correlate for developing pneumonia
[2023-12-24] MEDS ORDERED: NITROGLYCERIN SL TABS 0.4 MG TAB SUBLINGUAL PRN (17:02)
[2023-12-24] MEDS: cefTRIAXone IN SWFI 1,000 MG/10 ML SYRINGE IVP STA (18:24)
[2023-12-24] MEDS: DEXTROSE 5% IN WATER 100 ML with AMIODARONE 150 MG IV ONE ×2 (18:46→20:58)
--- NOTE | 2023-12-24 18:49 | XR ---
EXAMINATION TYPE: XR chest 2V DATE OF EXAM: 12/24/2023 6:42 PM CLINICAL INDICATION:Male, 78 years old with history of Difficulty breathing ; [facility] COMPARISON: Chest radiographs from same day TECHNIQUE: XR chest 2V Frontal view of the chest. FINDINGS: Lungs/Pleura: Similar area near the right heart border with increased opacities possibly representing pulmonary trunk with superimposed pulmonary vascular congestion. There is no evidence of pleural eff usion, focal consolidation, or pneumothorax. Pulmonary vascularity: Pulmonary vascular congestion. Heart/mediastinum: Cardiomediastinal silhouette is enlarged and stable. Musculoskeletal: No acute osseous pathology. Other findings: None IMPRESSION: 1. Cardiomegaly with increased interstitial lung markings possibly relating to pulmonary vasculature congestion. Correlate with serum BNP. 2. Area in the medial right lower lung on prior radiograph spell to now represent overlapping pulmon letty trunk with pulmonary vasculature congestion.
[2023-12-24] MEDS: AMIODARONE 360 MG in DEXTROSE 5% IN WATER 200 ML IV ONE (19:44)
[2023-12-24] MEDS: FUROSEMIDE 10 MG/ML 4 ML VIAL IV STA (19:44)
[2023-12-24] MEDS: metFORMIN 500 MG TAB PO SCH (21:00)
[2023-12-24] MEDS: METOPROLOL TARTRATE 25 MG TAB PO SCH (21:00)
[2023-12-24] MEDS: TIMOLOL 0.5% OPHTH DROPS 5 ML BTL BOTH EYES SCH (21:01)
[2023-12-24 21:03] LABS: Glucose,Whole Blood 394 mg/dL (70-110)
[2023-12-25] MEDS: AMIODARONE 450 MG in DEXTROSE 5% IN WATER 250 ML IV SCH ×2 (01:07→01:44)
[2023-12-25 06:23] LABS: Glucose,Whole Blood 275 mg/dL (70-110)
[2023-12-25] MEDS ORDERED: DEXTROSE 50% SYRINGE 50 ML IVP PRN ×2 (06:27)
[2023-12-25] MEDS: INSULIN ASPART (NovoLOG) 100 UNIT/ML VIAL SQ SCH (06:35)
[2023-12-25 06:39] LABS: HCT 36.4 % (39.0-53.0); HGB 12.1 gm/dL (13.0-17.5); MCH 33.3 pg (25.0-35.0); MCHC 33.2 g/dL (31.0-37.0); MCV 100.2 fL (80.0-100.0); Macrocytosis Slight; Mean Platelet Volume 7.9; Platelet Count 175 k/uL (150-450); RBC 3.63 m/uL (4.30-5.90); WBC 8.1 k/uL (3.8-10.6)
[2023-12-25 06:54] LABS: ALT 12 U/L (4-49); AST 19 U/L (17-59); African American GFR (CKD) 48 (>60 ml/min/1.73 sqM); Albumin 3.4 g/dL (3.5-5.0); Alkaline Phosphatase 48 U/L (38-126); Anion Gap 8 mmol/L; Blood Urea Nitrogen 24 mg/dL (9-20); Calcium 8.6 mg/dL (8.4-10.2); Carbon Dioxide 19 mmol/L (22-30); Chloride 109 mmol/L (98-107); Glucose 250 mg/dL (74-99); Non-African American GFR(CKD) 41 (>60 ml/min/1.73 sqM); Potassium 4.5 mmol/L (3.5-5.1); Sodium 136 mmol/L (137-145); Total Bilirubin 0.8 mg/dL (0.2-1.3); Total Protein 5.5 g/dL (6.3-8.2)
[2023-12-25] MEDS: ASPIRIN 325 MG TAB PO SCH (08:06)
[2023-12-25] MEDS: HEPARIN SODIUM 1,000 UN/ML (10ML VL) IV PRN (08:07)
[2023-12-25] MEDS: glipiZIDE 10 MG TAB PO SCH (08:07)
[2023-12-25 08:53] LABS: Chol/HDL Ratio 3.44 Ratio; LDL Cholesterol,Calculated 74.7 mg/dL (0.0-131.0)
[2023-12-25] MEDS ORDERED: lisinopriL 10 MG TAB PO SCH (09:00)
[2023-12-25] MEDS: AMIODARONE 200 MG TAB PO SCH (10:16)
[2023-12-25] MEDS: FUROSEMIDE 10 MG/ML 4 ML VIAL IV SCH (10:17)
--- NOTE | 2023-12-25 10:39 | P.CRDCN ---
History of Present Illness Consult date: 12/25/23 Reason for Consult (text): Atrial fibrillation with RVR History of present illness: This is an 78-year-old male with past medical history of diabetes mellitus type 2, hypertension, prostate cancer status post radiation and surgeries several y ears ago. We have been asked to evaluate the patient for A-fib with RVR. Patient gives history that he has been having trouble with breathing for the past 1 to 2 weeks that comes and goes. He also has had chest pain across the top of his chest. The chest pain occurs with activity such as after he is golfing. He would then sit down and the pain would go away with rest. He denies orthopnea. Chest pressure seems to happen with exertion but not at rest. He denies history of stroke, kidney problems, lung problems. He has not seen a outside residential sales professional in the past and has had no cardiac workup in the past. He has not been admitted to the hospital recently. He states he is having good urine out put. No fever or chills. No nausea or vomiting. His initial heart rates were in the 150s, pulse ox 88% requiring BiPAP, blood pressure 137/116. Blood pressure now 94/64, heart rate 92, pulse ox 97% on 4 L nasal cannula. Patient was on BiPAP during the night. Telemetry is atrial fibrillation running between 96 and 122 bpm. Patient was started on heparin drip. He is status post Cardizem bolus 10 mg x 2, Cardizem drip and later started on amiodarone drip. Discussed with patient and multiple family members at the bedside need for cardiac catheterization and patient and family are in agreement. They do understand that patient's renal function will need to be stable before this is done. Most likely, this will occur on Thursday. EKG: #1 atrial fibrillation with IVCD at ventricular rate 150 bpm, #2 atrial fibrillation with ventricular rate of 107 bpm with IVCD Chest x-ray: #1 right middle lobe airspace opacities correlate for developing pneumonia. #2 cardiomegaly with increased interstitial lung markings possibly pulmonary vascular congestion. Medial right lower lung on prior radiograph now represent overlapping pulmonary trunk with pulmonary vascular congestion. Laboratory studies: WBC 8.1, hemoglobin 12.1, sodium 136, potassium 4.5, BUN 24 creatinine 1.56, CO2 19. Blood sugar 275. Troponin 0.334, 0.421, 0.547. proBNP 5710. Influenza A, influenza B, RSV, COVID-19 not detected. Home cardiac medications: Lisinopril 10 mg daily. Review Of Systems: At the time of my exam: CONSTITUTIONAL: Denies fever or chills. HEENT: Denies blurred vision, vision changes, or eye pain. Denies hemoptysis CARDIOVASCULAR: Reports orthopnea. Denies PND. Denies palpitations. Reports chest pain with exertion. RESPIRATORY: Reports dyspnea on exertion. GASTROINTESTINAL: Denies abdominal pain. Denies nausea or vomiting. HEMATOLOGIC: Denies bleeding disorders. GENITOURINARY: Denies any blood in urine. SKIN: Denies puritis. Denies rash. Physical examination: Gen: This is an 78-year-old male in no acute distress VS: reviewed HEENT: Head is atraumatic, normocephalic. Pupils equal, round. Sclerae is anicteric. NECK: Supple. No JVD. LUNGS: Clear to auscultation. No wheezes or rhonchi. No intercostal retractions. HEART: Irregular rate and rhythm. No murmur. ABDOMEN: Soft No tenderness. EXTREMITIES: No pedal edema. No calf tenderness. NEUROLOGICAL: Patient is awake, alert and oriented x3. Assessment: New onset paroxysmal atrial fibrillation with RVR Possible pneumonia on antibiotics Possible non-ST elevated myocardial infarction versus type II Acute heart failure, unknown type, secondary to atrial fibrillation with RVR Acute kidney injury Metabolic acidosis Hypertension Diabetes mellitus type 2 Plan: Discontinue amiodarone drip and start oral amiodarone 400 mg twice daily Discontinue Cardizem drip and start patient on metoprolol tartrate 25 mg twice daily Continue patient on IV heparin Start aspirin 81 mg daily Start Lasix 40 mg IV daily Monitor LEIGH, daily weights, electrolytes and renal function Obtain 2-D echocardiogram and Doppler study to assess cardiac structure and function Plan for cardiac catheterization once renal function is improved. Most likely on Thursday. Further recommendations to follow based upon clinical course Thank you kindly for this consultation. Nurse practitioner note has been reviewed, I agree with documented findings and plan of care. Patient was seen and examined. Past Medical History Past Medical History: Cancer, Diabetes Mellitus, Hypertension, Prostate Disorder Additional Past Medical History / Comment(s): prostate cancer History of Any Multi-Drug Resistant Organisms: None Reported Past Surgical History: Appendectomy, Orthopedic Surgery Additional Past Surgical History / Comment(s): hip replacement, Past Anesthesia/Blood Transfusion Reactions: No Reported Reaction Past Psychological History: No Psychological Hx Reported Smoking Status: Former smoker Past Alcohol Use History: None Reported Past Drug Use History: None Reported - Past Family History Father Family Medical History: Coronary Artery Disease (CAD) Mother Family Medical History: No Reported History Medications and Allergies Home Medications Medication Instructions Recorded Confirmed Type lisinopriL [Zestril] 10 mg PO DAILY 03/18/23 12/24/23 History metFORMIN HCL 1,000 mg PO BID 03/18/23 12/24/23 History Timolol 0.5% Ophth Soln [Timoptic 1 drop BOTH EYES BID 12/24/23 12/24/23 History 0.5% Ophth Soln] glipiZIDE XL [Glucotrol Xl] 10 mg PO DAILY 12/24/23 12/24/23 History Allergies Allergy/AdvReac Type Severity Reaction Status Date / Time Penicillins Allergy Unknown Verified 03/24/23 05:58 Childhood Physical Exam Vitals: Vital Signs Temp Pulse Pulse Resp BP BP Pulse Ox 12/25/23 07:54 12/25/23 04:32 12/25/23 03:15 97.8 F 111 H 19 93/64 97 12/25/23 00:05 12/24/23 23:00 97.6 F 125 H 36 H 123/80 99 12/24/23 21:45 131 H 30 H 92/65 97 12/24/23 21:15 133 H 39 H 95/77 97 12/24/23 21:00 147 H 37 H 138/106 94 L 12/24/23 20:30 156 H 37 H 158/109 94 L 12/24/23 20:25 149 H 36 H 127/109 95 12/24/23 19:45 138 H 36 H 186/62 96 12/24/23 19:00 98 F 138 H 36 H 138/103 96 12/24/23 18:15 156 H 34 H 184/121 94 L 12/24/23 18:00 156 H 33 H 140/102 92 L 12/24/23 17:45 141 H 30 H 143/98 92 L 12/24/23 17:30 154 H 31 H 133/104 93 L 12/24/23 17:15 131 H 31 H 153/105 92 L 12/24/23 17:00 154 H 32 H 134/105 93 L 12/24/23 16:45 142 H 36 H 172/107 86 L 12/24/23 16:30 158 H 36 H 167/117 91 L 12/24/23 16:15 142 H 25 H 151/103 90 L 12/24/23 16:00 151 H 35 H 141/106 91 L 12/24/23 15:45 149 H 31 H 145/98 92 L 12/24/23 15:30 151 H 47 H 131/109 94 L 12/24/23 15:15 141 H 33 H 148/110 93 L 12/24/23 15:00 129/93 12/24/23 14:45 137 H 24 131/103 93 L 12/24/23 14:30 149 H 24 137/116 90 L 12/24/23 14:22 155 H 12/24/23 14:19 158 H 22 88 L 12/24/23 13:58 98.4 F 118 H 18 146/86 98 FiO2 12/25/23 07:54 35 12/25/23 04:32 35 12/25/23 03:15 35 12/25/23 00:05 35 12/24/23 23:00 35 12/24/23 21:45 12/24/23 21:15 35 12/24/23 21:00 12/24/23 20:30 12/24/23 20:25 12/24/23 19:45 12/24/23 19:00 12/24/23 18:15 12/24/23 18:00 12/24/23 17:45 12/24/23 17:30 12/24/23 17:15 12/24/23 17:00 12/24/23 16:45 12/24/23 16:30 12/24/23 16:15 12/24/23 16:00 12/24/23 15:45 12/24/23 15:30 12/24/23 15:15 12/24/23 15:00 12/24/23 14:45 12/24/23 14:30 12/24/23 14:22 12/24/23 14:19 12/24/23 13:58 Intake and Output 12/24/23 12/25/23 12/25/23 22:59 06:59 14:59 Intake Total 41.167 114.834 Output Total 800 300 Balance -758.833 -185.166 Intake: Intake, IV Titration 41.167 114.834 Amount Diltiazem 125 mg In 41.167 31.167 Sodium Chloride 0.9% 100 ml @ 5 MG/HR 5 mls/hr IV .Q24H [facility] Rx#:[id number] Heparin Sod,Pork in 0.45% 83.667 NaCl 25,000 unit In 0.45 % NaCl 1 250ml.bag @ 9. 186 UNITS/KG/HR 10 mls/hr IV .Q24H [facility] Rx#: [id number] Output: Urine 800 300 Other: Voiding Method Urinal # Voids 1 Weight 108.862 kg Results 12/25/23 06:23 12/25/23 06:23 Cardiac Enzymes 12/24/23 12/24/23 12/24/23 Range/Units 14:23 14:23 17:23 AST 18 (17-59) U/L Troponin I 0.334 H* 0.421 H* (0.000-0.034) ng/mL 12/24/23 12/25/23 Range/Units 20:11 06:23 AST 19 (17-59) U/L Troponin I 0.547 H* (0.000-0.034) ng/mL Coagulation 12/24/23 12/24/23 12/25/23 Range/Units 14:23 20:53 06:23 PT 11.3 (10.0-12.5) sec APTT 24.3 30.1 H 36.2 H (22.0-30.0) sec CBC 12/24/23 12/25/23 Range/Units 14:23 06:23 WBC 8.8 8.1 (3.8-10.6) k/uL RBC 4.02 L 3.63 L (4.30-5.90) m/uL Hgb 12.8 L 12.1 L (13.0-17.5) gm/dL Hct 39.1 36.4 L (39.0-53.0) % Plt Count 200 175 (150-450) k/uL Comprehensive Metabolic Panel 12/24/23 12/25/23 Range/Units 14:23 06:23 Sodium 136 L 136 L (137-145) mmol/L Potassium 4.9 4.5 (3.5-5.1) mmol/L Chloride 109 H 109 H (98-107) mmol/L Carbon Dioxide 19 L 19 L (22-30) mmol/L BUN 21 H 24 H (9-20) mg/dL Creatinine 1.18 1.56 H (0.66-1.25) mg/dL Glucose 258 H 250 H (74-99) mg/dL Calcium 8.9 8.6 (8.4-10.2) mg/dL AST 18 19 (17-59) U/L ALT 14 12 (4-49) U/L Alkaline Phosphatase 55 48 (38-126) U/L Total Protein 6.1 L 5.5 L (6.3-8.2) g/dL Albumin 4.0 3.4 L (3.5-5.0) g/dL Current Medications Generic Name Dose Route Start Last Admin Trade Name Freq PRN Reason Stop Dose Admin Aspirin 325 mg 12/25/23 09:00 Aspirin 325 Mg Tab PO DAILY [facility] Dextrose/Water 25 ml 12/25/23 06:27 Dextrose 50% Syringe 50 Ml IVP PER PROTOCOL PRN Hypoglycemia Protocol Dextrose/Water 50 ml 12/25/23 06:27 Dextrose 50% Syringe 50 Ml IVP PER PROTOCOL PRN Hypoglycemia Protocol Glipizide 10 mg 12/25/23 09:00 Glipizide 10 Mg Tab PO DAILY [facility] Heparin Sodium (Porcine) 0 unit 12/25/23 07:44 Heparin Sodium 1,000 Un/Ml (10ml Vl) IV PER PROTOCOL PRN Low PTT Protocol Diltiazem HCl 125 mg/ Sodium 125 mls @ 5 mls/hr 12/24/23 14:30 12/25/23 01:44 Chloride IV 5 mg/hr .Q24H [facility] 5 mls/hr Administration 5 MG/HR Heparin Sodium/Sodium Chloride 250 mls @ 10 mls/hr 12/24/23 14:30 12/24/23 23:06 25,000 unit/ Sodium Chloride IV 12.186 units/kg/hr .Q24H [facility] 13.266 mls/hr Titration Protocol 9.186 UNITS/KG/HR Ceftriaxone Sodium 2 gm/ 50 mls @ 100 mls/hr 12/25/23 09:00 Sodium Chloride IVPB Q24HR [facility] Protocol Amiodarone HCl 450 mg/ 250 mls @ 16.667 mls/hr 12/25/23 02:00 12/25/23 01:44 Dextrose/Water IV 12/25/23 19:59 0.5 mg/min .Q15H [facility] 16.667 mls/hr Administration Protocol 0.5 MG/MIN Insulin Aspart 0 unit 12/25/23 07:30 12/25/23 06:35 Insulin Aspart (Novolog) 100 Unit/Ml Vial SQ 6 unit ACHS [facility] Administration Protocol Metformin HCl 1,000 mg 12/24/23 21:00 12/24/23 21:00 Metformin 500 Mg Tab PO 1,000 mg BID [facility] Administration Metoprolol Tartrate 25 mg 12/24/23 21:00 12/24/23 21:00 Metoprolol Tartrate 25 Mg Tab PO 25 mg BID [facility] Administration Nitroglycerin 0.4 mg 12/24/23 17:02 Nitroglycerin Sl Tabs 0.4 Mg Tab SUBLINGUAL Q5M PRN Chest Pain Timolol Maleate 1 drops 12/24/23 21:00 12/24/23 21:01 Timolol 0.5% Ophth Drops 5 Ml Btl BOTH EYES 1 drops BID [facility] Administration Intake and Output 12/24/23 12/25/23 12/25/23 22:59 06:59 14:59 Intake Total 41.167 114.834 Output Total 800 300 Balance -758.833 -185.166 Intake: Intake, IV Titration 41.167 114.834 Amount Diltiazem 125 mg In 41.167 31.167 Sodium Chloride 0.9% 100 ml @ 5 MG/HR 5 mls/hr IV .Q24H [facility] Rx#:[id number] Heparin Sod,Pork in 0.45% 83.667 NaCl 25,000 unit In 0.45 % NaCl 1 250ml.bag @ 9. 186 UNITS/KG/HR 10 mls/hr IV .Q24H [facility] Rx#: [id number] Output: Urine 800 300 Other: Voiding Method Urinal # Voids 1 Weight 108.862 kg 12/25/23 06:23 12/25/23 06:23
--- NOTE | 2023-12-25 10:50 | P.HPIM ---
History of Present Illness Patient is a pleasant 78 years old male with past medical history of multiple medical problems including hypertension and diabetes Presents with respiratory distress the last 2 to 3 days duration and chest tightness. On admission patient was found to be in fluid overload with chest x-ray showing cardiomegaly with pulmonary vascular congestion, proBNP is elevated 5710. Patient also was mildly tachypneic and hypoxic, was placed on oxygen and he feels better On admission his blood pressure was up but now on the low side 94/64 however patient is asymptomatic heart rate count went down from 140s-150s down to 92 He is afebrile He is mildly tachypneic requiring BiPAP but now he is off BiPAP on nasal cannula Hemoglobin 12, creatinine slightly up at 1.5 with baseline 1.1 Glucose elevated at home he was on metformin 1000 twice daily, glipizide 10 mg Review of Systems Review of systems CONSTITUTIONAL: No fever, no malaise, no fatigue. HEENT: No recent visual problems or hearing problems. Denied any sore throat. CARDIOVASCULAR: No orthopnea, PND, no palpitations, no syncope. PULMONARY: No chest wall tenderness, no cough, no hemoptysis. GASTROINTESTINAL: No diarrhea, no nausea, no vomiting, no abdominal pain. Normoactive bowel sounds. NEUROLOGICAL: No headaches, no weakness, no numbness. HEMATOLOGICAL: Denies any bleeding or petechiae. GENITOURINARY: Denies any burning micturition, frequency, or urgency. MUSCULOSKELETAL/RHEUMATOLOGICAL: Denies any joint pain, swelling, or any muscle pain. ENDOCRINE: Denies any polyuria or polydipsia. Past Medical History Past Medical History: Cancer, Diabetes Mellitus, Hypertension, Prostate Disorder Additional Past Medical History / Comment(s): prostate cancer History of Any Multi-Drug Resistant Organisms: None Reported Past Surgical History: Appendectomy, Orthopedic Surgery Additional Past Surgical History / Comment(s): hip replacement, Past Anesthesia/Blood Transfusion Reactions: No Reported Reaction Past Psychological History: No Psychological Hx Reported Smoking Status: Former smoker Past Alcohol Use History: None Reported Past Drug Use History: None Reported - Past Family History Father Family Medical History: Coronary Artery Disease (CAD) Mother Family Medical History: No Reported History Medications and Allergies Home Medications Medication Instructions Recorded Confirmed Type lisinopriL [Zestril] 10 mg PO DAILY 03/18/23 12/24/23 History metFORMIN HCL 1,000 mg PO BID 03/18/23 12/24/23 History Timolol 0.5% Ophth Soln [Timoptic 1 drop BOTH EYES BID 12/24/23 12/24/23 History 0.5% Ophth Soln] glipiZIDE XL [Glucotrol Xl] 10 mg PO DAILY 12/24/23 12/24/23 History Allergies Allergy/AdvReac Type Severity Reaction Status Date / Time Penicillins Allergy Unknown Verified 03/24/23 05:58 Childhood Physical Exam Vitals: Vital Signs Temp Pulse Pulse Resp BP BP Pulse Ox 12/25/23 08:00 98.4 F 92 18 94/64 97 12/25/23 07:54 12/25/23 04:32 12/25/23 03:15 97.8 F 111 H 19 93/64 97 12/25/23 00:05 12/24/23 23:00 97.6 F 125 H 36 H 123/80 99 12/24/23 21:45 131 H 30 H 92/65 97 12/24/23 21:15 133 H 39 H 95/77 97 12/24/23 21:00 147 H 37 H 138/106 94 L 12/24/23 20:30 156 H 37 H 158/109 94 L 12/24/23 20:25 149 H 36 H 127/109 95 12/24/23 19:45 138 H 36 H 186/62 96 12/24/23 19:00 98 F 138 H 36 H 138/103 96 12/24/23 18:15 156 H 34 H 184/121 94 L 12/24/23 18:00 156 H 33 H 140/102 92 L 12/24/23 17:45 141 H 30 H 143/98 92 L 12/24/23 17:30 154 H 31 H 133/104 93 L 12/24/23 17:15 131 H 31 H 153/105 92 L 12/24/23 17:00 154 H 32 H 134/105 93 L 12/24/23 16:45 142 H 36 H 172/107 86 L 12/24/23 16:30 158 H 36 H 167/117 91 L 12/24/23 16:15 142 H 25 H 151/103 90 L 12/24/23 16:00 151 H 35 H 141/106 91 L 12/24/23 15:45 149 H 31 H 145/98 92 L 12/24/23 15:30 151 H 47 H 131/109 94 L 12/24/23 15:15 141 H 33 H 148/110 93 L 12/24/23 15:00 129/93 12/24/23 14:45 137 H 24 131/103 93 L 12/24/23 14:30 149 H 24 137/116 90 L 12/24/23 14:22 155 H 12/24/23 14:19 158 H 22 88 L 12/24/23 13:58 98.4 F 118 H 18 146/86 98 FiO2 12/25/23 08:00 12/25/23 07:54 35 12/25/23 04:32 35 12/25/23 03:15 35 12/25/23 00:05 35 12/24/23 23:00 35 12/24/23 21:45 12/24/23 21:15 35 12/24/23 21:00 12/24/23 20:30 12/24/23 20:25 12/24/23 19:45 12/24/23 19:00 12/24/23 18:15 12/24/23 18:00 12/24/23 17:45 12/24/23 17:30 12/24/23 17:15 12/24/23 17:00 12/24/23 16:45 12/24/23 16:30 12/24/23 16:15 12/24/23 16:00 12/24/23 15:45 12/24/23 15:30 12/24/23 15:15 12/24/23 15:00 12/24/23 14:45 12/24/23 14:30 12/24/23 14:22 12/24/23 14:19 12/24/23 13:58 Intake and Output 12/24/23 12/25/23 12/25/23 22:59 06:59 14:59 Intake Total 41.167 114.834 687.949 Output Total 800 300 0 Balance -758.833 -185.166 687.949 Intake: Intake, IV Titration 41.167 114.834 447.949 Amount Amiodarone 360 mg In 200 Dextrose 5% in Water 200 ml @ 1 MG/MIN 33.333 mls/ hr IV .Q6H [facility] Rx#: [id number] Diltiazem 125 mg In 41.167 31.167 43.917 Sodium Chloride 0.9% 100 ml @ 5 MG/HR 5 mls/hr IV .Q24H [facility] Rx#:[id number] Heparin Sod,Pork in 0.45% 83.667 154.032 NaCl 25,000 unit In 0.45 % NaCl 1 250ml.bag @ 9. 186 UNITS/KG/HR 10 mls/hr IV .Q24H [facility] Rx#: [id number] cefTRIAXone 2 gm In 50 Sodium Chloride 0.9% 50 ml @ 100 mls/hr IVPB Q24HR [facility] Rx#:[id number] Oral 240 Output: Urine 800 300 0 Other: Voiding Method Urinal Urinal # Voids 1 # Bowel Movements 0 Weight 108.862 kg GENERAL: The patient is alert and oriented x3, not in any acute distress. Well developed, well nourished. HEENT: Pupils are round and equally reacting to light. EOMI. No scleral icterus. No conjunctival pallor. Normocephalic, atraumatic. No pharyngeal erythema. No thyromegaly. CARDIOVASCULAR: S1 and S2 present. No murmurs, rubs, or gallops. -PULMONARY: Chest is clear to auscultation, no wheezing , bilateral basal crackles. ABDOMEN: Soft, nontender, nondistended, normoactive bowel sounds. No palpable organomegaly. MUSCULOSKELETAL: No joint swelling or deformity. EXTREMITIES: No cyanosis, clubbing, or pedal edema. NEUROLOGICAL: Gross neurological examination did not reveal any focal deficits. SKIN: No rashes. no petechiae. Results CBC & Chem 7: 12/25/23 06:23 12/25/23 06:23 Labs: Abnormal Lab Results - Last 24 Hours (Table) 12/24/23 12/24/23 12/24/23 Range/Units 14:23 14:23 14:23 RBC 4.02 L (4.30-5.90) m/uL Hgb 12.8 L (13.0-17.5) gm/dL Hct (39.0-53.0) % MCV (80.0-100.0) fL APTT (22.0-30.0) sec Sodium 136 L (137-145) mmol/L Chloride 109 H (98-107) mmol/L Carbon Dioxide 19 L (22-30) mmol/L BUN 21 H (9-20) mg/dL Creatinine (0.66-1.25) mg/dL Glucose 258 H (74-99) mg/dL POC Glucose (mg/dL) (70-110) mg/dL Total Bilirubin 1.7 H (0.2-1.3) mg/dL Troponin I 0.334 H* (0.000-0.034) ng/mL Total Protein 6.1 L (6.3-8.2) g/dL Albumin (3.5-5.0) g/dL 12/24/23 12/24/23 12/24/23 Range/Units 17:23 20:11 20:53 RBC (4.30-5.90) m/uL Hgb (13.0-17.5) gm/dL Hct (39.0-53.0) % MCV (80.0-100.0) fL APTT 30.1 H (22.0-30.0) sec Sodium (137-145) mmol/L Chloride (98-107) mmol/L Carbon Dioxide (22-30) mmol/L BUN (9-20) mg/dL Creatinine (0.66-1.25) mg/dL Glucose (74-99) mg/dL POC Glucose (mg/dL) (70-110) mg/dL Total Bilirubin (0.2-1.3) mg/dL Troponin I 0.421 H* 0.547 H* (0.000-0.034) ng/mL Total Protein (6.3-8.2) g/dL Albumin (3.5-5.0) g/dL 12/24/23 12/25/23 12/25/23 Range/Units 21:02 06:19 06:23 RBC (4.30-5.90) m/uL Hgb (13.0-17.5) gm/dL Hct (39.0-53.0) % MCV (80.0-100.0) fL APTT 36.2 H (22.0-30.0) sec Sodium (137-145) mmol/L Chloride (98-107) mmol/L Carbon Dioxide (22-30) mmol/L BUN (9-20) mg/dL Creatinine (0.66-1.25) mg/dL Glucose (74-99) mg/dL POC Glucose (mg/dL) 394 H 275 H (70-110) mg/dL Total Bilirubin (0.2-1.3) mg/dL Troponin I (0.000-0.034) ng/mL Total Protein (6.3-8.2) g/dL Albumin (3.5-5.0) g/dL 12/25/23 12/25/23 Range/Units 06:23 06:23 RBC 3.63 L (4.30-5.90) m/uL Hgb 12.1 L (13.0-17.5) gm/dL Hct 36.4 L (39.0-53.0) % MCV 100.2 H (80.0-100.0) fL APTT (22.0-30.0) sec Sodium 136 L (137-145) mmol/L Chloride 109 H (98-107) mmol/L Carbon Dioxide 19 L (22-30) mmol/L BUN 24 H (9-20) mg/dL Creatinine 1.56 H (0.66-1.25) mg/dL Glucose 250 H (74-99) mg/dL POC Glucose (mg/dL) (70-110) mg/dL Total Bilirubin (0.2-1.3) mg/dL Troponin I (0.000-0.034) ng/mL Total Protein 5.5 L (6.3-8.2) g/dL Albumin 3.4 L (3.5-5.0) g/dL Thrombosis Risk Factor Assmnt - Choose All That Apply Any of the Below Risk Factors Present?: Yes Each Factor Represents 1 point: Heart failure (<1month), Medical pt on bed rest, Obesity (BMI >25), Swollen legs (current) Other Risk Factors: Yes Each Risk Factor Represents 3 Points: Age 75 years or older Other congenital or acquired thrombophilia - If yes, enter type in comment: No Thrombosis Risk Factor Assessment Total Risk Factor Score: 7 Thrombosis Risk Factor Assessment Level: High Risk Assessment and Plan Assessment: A-fib and RVR, present on admission Acute on chronic CHF Acute kidney injury on CKD stage III Acute hypoxic respiratory failure secondary to above Diabetes mellitus Hypertension Obesity with BMI of 36.1 Plan: Continue with heparin drip, amiodarone drip per field marketing lead Continue with IV Lasix 40 mg Hold metformin because of kidney injury continue with insulin sliding scale and glipizide Currently on ceftriaxone, patient is afebrile with no leukocytosis. We will check Pro-Home Calcitonin and if there is no reason we may discontinue with that later stage Cardiology consult labs and medication were reviewed.. Continue same treatment. Continue with symptomatic treatment. Resume home medication. Monitor labs and vitals. DVT and GI prophylaxis. Further recommendations as per clinical course of the patient DVT prophylaxis: heparin GI Prophylaxis: Pepcid PT/OT: Pending Prognosis is guarded
[2023-12-25 12:07] LABS: Glucose,Whole Blood 230 mg/dL (70-110)
[2023-12-25 16:26] LABS: Glucose,Whole Blood 203 mg/dL (70-110)
--- NOTE | 2023-12-25 17:01 | CA ---
Transthoracic Echo Report Name: Arash Warren Age: 78 Gender: M : 1945 Exam Date: 12/25/2023 14:34 Exam Location: [place] [facility] Ht (in): 68 Wt (lb): 240 Ordering Physician: Dimple Fitch Attending/Referring Phys: [id number], Little Director Data Processing Bárbara Gtz RDCS Procedure CPT: Indications: LVF Cardiac Hx: Technical Quality: Fair Contrast 1: Definity Total Dose (mL): 2 Contrast 2: Total Dose (mL): MEASUREMENTS (Male / Female) Normal Values 2D ECHO LV Diastolic Diameter PLAX 4.1 cm 4.2 - 5.9 / 3.9 - 5.3 cm LV Systolic Diameter PLAX 3.5 cm IVS Diastolic Thickness 1.1 cm 0.6 - 1.0 / 0.6 - 0.9 cm LVPW Diastolic Thickness 1.2 cm 0.6 - 1.0 / 0.6 - 0.9 cm LV Relative Wall Thickness 0.6 RV Internal Dim ED PLAX 2.0 cm LA Systolic Diameter LX 4.6 cm 3.0 - 4.0 / 2.7 - 3.8 cm M-MODE Aortic Root Diameter MM 3.4 cm LA Systolic Diameter MM 4.4 cm LA Ao Ratio MM 1.3 AV Cusp Separation MM 1.4 cm DOPPLER AV Peak Velocity 122.2 cm/s AV Peak Gradient 6.0 mmHg TR Peak Velocity 268.4 cm/s TR Peak Gradient 28.8 mmHg FINDINGS Left Ventricle Left ventricular ejection fraction is estimated at 25-30 %. Left ventricular cavity size normal. Mildly increased left ventricular wall thickness. Right Ventricle Mild right ventricular dilatation. Right ventricular systolic pressure within normal limits. Right Atrium Mild right atrial dilatation. Left Atrium Mildly increased left atrial diameter. Mitral Valve Structurally normal mitral valve. [id number] mitral regurgitation. No mitral stenosis. Aortic Valve Trileaflet aortic valve. No aortic regurgitation. No aortic stenosis. Diffuse thickening (sclerosis) of the aortic valve cusps without reduced excursion. Tricuspid Valve Trace tricuspid regurgitation. Structurally normal tricuspid valve. Pulmonic Valve Structurally normal pulmonic valve. Trace pulmonic regurgitation. Pericardium Echo free space anterior to the right ventricle likely represents a fat pad. Aorta Normal size aortic root and proximal ascending aorta. CONCLUSIONS Technically difficult study. Definity ECHO contrast used for improved visualization of the endocardial borders (inadequate visualization of two or more contiguous segments). Severe global hypokinesis of the left ventricle Moderate severe eccentric mitral regurgitation Previewed by: Dr. Tim Murray MD (Electronically Signed) Final Date: 25 December 2023 17:00
[2023-12-25 20:25] LABS: Glucose,Whole Blood 166 mg/dL (70-110)
[2023-12-25] MEDS: FAMOTIDINE 20 MG/2 ML VIAL IV SCH (20:47)
[2023-12-26 06:16] LABS: Glucose,Whole Blood 210 mg/dL (70-110)
[2023-12-26] MEDS: ASPIRIN 81 MG PO SCH (07:42)
[2023-12-26 08:03] LABS: Basophils # (A) 0.1 k/uL (0-0.2); Basophils % (A) 1 %; Eosinophils # (A) 0.2 k/uL (0-0.7); Eosinophils % (A) 2 %; HCT 35.9 % (39.0-53.0); HGB 11.9 gm/dL (13.0-17.5); Lymphocytes # (A) 1.2 k/uL (1.0-4.8); Lymphocytes % (A) 15 %; MCH 32.3 pg (25.0-35.0); MCHC 33.1 g/dL (31.0-37.0); MCV 97.6 fL (80.0-100.0); Mean Platelet Volume 8.4; Monocytes # (A) 0.4 k/uL (0-1.0); Monocytes % (A) 6 %; Neutrophils # (A) 6.1 k/uL (1.3-7.7); Neutrophils % (A) 76 %; Platelet Count 183 k/uL (150-450); Poikilocytosis Slight; RBC 3.68 m/uL (4.30-5.90)
[2023-12-26 08:38] LABS: African American GFR (CKD) 40 (>60 ml/min/1.73 sqM); Anion Gap 9 mmol/L; Blood Urea Nitrogen 35 mg/dL (9-20); Calcium 8.6 mg/dL (8.4-10.2); Carbon Dioxide 20 mmol/L (22-30); Chloride 108 mmol/L (98-107); Glucose 233 mg/dL (74-99); Magnesium 1.7 mg/dL (1.6-2.3); Non-African American GFR(CKD) 35 (>60 ml/min/1.73 sqM); Potassium 4.5 mmol/L (3.5-5.1); Sodium 137 mmol/L (137-145)
--- NOTE | 2023-12-26 11:06 | P.PN ---
Subjective Patient is a pleasant 78 years old male with past medical history of multiple medical problems including hypertension and diabetes Presents with respiratory distress the last 2 to 3 days duration and chest tightness. On admission patient was found to be in fluid overload with chest x-ray showing cardiomegaly with pulmonary vascular congestion, proBNP is elevated 5710. Patient also was mildly tachypneic and hypoxic, was placed on oxygen and he f eels better On admission his blood pressure was up but now on the low side 94/64 however patient is asymptomatic heart rate count went down from 140s-150s down to 92 He is afebrile He is mildly tachypneic requiring BiPAP but now he is off BiPAP on nasal cannula Hemoglobin 12, creatinine slightly up at 1.5 with baseline 1.1 Glucose elevated at home he was on metformin 1000 twice daily, glipizide 10 mg 12/26/2023 Patient awake alert at baseline His breathing improved since admission and currently he is on 2 L oxygen with good oxygen saturation and mild tachypnea He denies chest pain He still has tachycardia around 115 rest of vitals look stable Creatinine went up 1.8 compared to baseline of 1.0-1.1 Glucose better controlled He still has a mild leukocytosis Echocardiogram showed ejection fraction of 25 to 30% with severe global hypokinesia and moderate to severe mitral regurgitation Patient creatinine increased 1.8 we will going to hold his IV Lasix. Check urine analysis and bladder scan. And keep monitoring if further worsening may consider nephrology consult. Yesterday he made more than 1.5 L of urine output. Labs reviewed, CBC looks the same. Creatinine up as above. Review of systems CONSTITUTIONAL: No fever, no malaise, no fatigue. HEENT: No recent visual problems or hearing problems. Denied any sore throat. HEMATOLOGICAL: Denies any bleeding or petechiae. GENITOURINARY: Denies any burning micturition, frequency, or urgency. MUSCULOSKELETAL/RHEUMATOLOGICAL: Denies any joint pain, swelling, or any muscle pain. ENDOCRINE: Denies any polyuria or polydipsia. Active Medications Generic Name Dose Route Start Last Admin Trade Name Freq PRN Reason Stop Dose Admin Amiodarone HCl 400 mg 12/25/23 10:00 12/26/23 07:42 Amiodarone 200 Mg Tab PO 400 mg BID JAYLEN Administration Aspirin 81 mg 12/26/23 09:00 12/26/23 07:42 Aspirin 81 Mg PO 81 mg DAILY JAYLEN Administration Dextrose/Water 25 ml 12/25/23 06:27 Dextrose 50% Syringe 50 Ml IVP PER PROTOCOL PRN Hypoglycemia Protocol Dextrose/Water 50 ml 12/25/23 06:27 Dextrose 50% Syringe 50 Ml IVP PER PROTOCOL PRN Hypoglycemia Protocol Famotidine 20 mg 12/25/23 21:00 12/25/23 20:47 Famotidine 20 Mg/2 Ml Vial IV 20 mg HS JAYLEN Administration Glipizide 10 mg 12/25/23 09:00 12/26/23 07:42 Glipizide 10 Mg Tab PO 10 mg DAILY JAYLEN Administration Heparin Sodium (Porcine) 0 unit 12/25/23 07:44 12/25/23 15:46 Heparin Sodium 1,000 Un/Ml (10ml Vl) IV 2,700 unit PER PROTOCOL PRN Administration Low PTT Protocol Heparin Sodium/Sodium Chloride 250 mls @ 10 mls/hr 12/24/23 14:30 12/25/23 15:45 25,000 unit/ Sodium Chloride IV 16.186 units/kg/hr .Q24H JAYLEN 17.62 mls/hr Titration Protocol 9.186 UNITS/KG/HR Ceftriaxone Sodium 2 gm/ 50 mls @ 100 mls/hr 12/25/23 09:00 12/26/23 07:42 Sodium Chloride IVPB 100 mls/hr Q24HR JAYLEN Administration Protocol Insulin Aspart 0 unit 12/25/23 07:30 12/26/23 06:17 Insulin Aspart (Novolog) 100 Unit/Ml Vial SQ 4 unit ACHS JAYLEN Administration Protocol Metoprolol Tartrate 25 mg 12/24/23 21:00 12/26/23 07:42 Metoprolol Tartrate 25 Mg Tab PO 25 mg BID JAYLEN Administration Nitroglycerin 0.4 mg 12/24/23 17:02 Nitroglycerin Sl Tabs 0.4 Mg Tab SUBLINGUAL Q5M PRN Chest Pain Timolol Maleate 1 drops 12/24/23 21:00 12/26/23 10:06 Timolol 0.5% Ophth Drops 5 Ml Btl BOTH EYES Not Given BID JAYLEN Objective - Vital Signs Vital signs: Vital Signs Temp 97.8 F 12/26/23 07:39 Pulse 115 H 12/26/23 07:39 Resp 18 12/26/23 07:41 BP 117/75 12/26/23 07:39 Pulse Ox 95 12/26/23 09:56 FiO2 35 12/26/23 09:56 Intake & Output 12/25/23 12/26/23 12/26/23 18:59 06:59 18:59 Intake Total 1231.341 300 Output Total 480 600 250 Balance 751.341 -600 50 Weight 99.7 kg Intake: IV 10 Invasive Line 1 10 Intake, IV Titration 531.341 50 Amount Amiodarone 360 mg In 200 Dextrose 5% in Water 200 ml @ 1 MG/MIN 33.333 mls/ hr IV .Q6H [facility] Rx#: [id number] Diltiazem 125 mg In 43.917 Sodium Chloride 0.9% 100 ml @ 5 MG/HR 5 mls/hr IV .Q24H [facility] Rx#:[id number] Heparin Sod,Pork in 0.45% 237.424 NaCl 25,000 unit In 0.45 % NaCl 1 250ml.bag @ 9. 186 UNITS/KG/HR 10 mls/hr IV .Q24H [facility] Rx#: [id number] cefTRIAXone 2 gm In 50 50 Sodium Chloride 0.9% 50 ml @ 100 mls/hr IVPB Q24HR [facility] Rx#:[id number] Oral 700 240 Output: Urine 350 600 250 Post Void Residual 130 Other: Voiding Method Urinal Urinal Urinal # Bowel Movements 0 - Exam -GENERAL: The patient is alert and oriented x3, not in any acute distress. Well developed, well nourished. With malaise HEENT: Pupils are round and equally reacting to light. EOMI. No scleral icterus. No conjunctival pallor. Normocephalic, atraumatic. No pharyngeal erythema. No thyromegaly. CARDIOVASCULAR: S1 and S2 present. No murmurs, rubs, or gallops. PULMONARY: Chest is clear to auscultation, no wheezing , no crackles. ABDOMEN: Soft, nontender, nondistended, normoactive bowel sounds. No palpable organomegaly. MUSCULOSKELETAL: No joint swelling or deformity. EXTREMITIES: No cyanosis, clubbing, or pedal edema. NEUROLOGICAL: Gross neurological examination did not reveal any focal deficits. SKIN: No rashes. no petechiae. - Labs CBC & Chem 7: 12/26/23 07:32 12/26/23 07:32 Labs: Abnormal Lab Results - Last 24 Hours (Table) 12/25/23 12/25/23 12/25/23 Range/Units 12:06 14:10 16:20 RBC (4.30-5.90) m/uL Hgb (13.0-17.5) gm/dL Hct (39.0-53.0) % APTT 42.7 H (22.0-30.0) sec Chloride (98-107) mmol/L Carbon Dioxide (22-30) mmol/L BUN (9-20) mg/dL Creatinine (0.66-1.25) mg/dL Glucose (74-99) mg/dL POC Glucose (mg/dL) 230 H 203 H (70-110) mg/dL 12/25/23 12/25/23 12/26/23 Range/Units 20:23 21:30 06:14 RBC (4.30-5.90) m/uL Hgb (13.0-17.5) gm/dL Hct (39.0-53.0) % APTT 57.1 H (22.0-30.0) sec Chloride (98-107) mmol/L Carbon Dioxide (22-30) mmol/L BUN (9-20) mg/dL Creatinine (0.66-1.25) mg/dL Glucose (74-99) mg/dL POC Glucose (mg/dL) 166 H 210 H (70-110) mg/dL 12/26/23 12/26/23 12/26/23 Range/Units 07:32 07:32 07:32 RBC 3.68 L (4.30-5.90) m/uL Hgb 11.9 L (13.0-17.5) gm/dL Hct 35.9 L (39.0-53.0) % APTT 46.5 H (22.0-30.0) sec Chloride 108 H (98-107) mmol/L Carbon Dioxide 20 L (22-30) mmol/L BUN 35 H (9-20) mg/dL Creatinine 1.81 H (0.66-1.25) mg/dL Glucose 233 H (74-99) mg/dL POC Glucose (mg/dL) (70-110) mg/dL Assessment and Plan Assessment: A-fib and RVR, present on admission Acute on chronic CHF, ejection fraction 25 to 30% Acute kidney injury on CKD stage III Acute hypoxic respiratory failure secondary to above. Improving Chronic anemia Diabetes mellitus Hypertension Obesity with BMI of 36.1 Plan: Continue with heparin drip, amiodarone drip per bladder tier IV Lasix 40 mg which was put on hold Hold metformin because of kidney injury continue with insulin sliding scale and glipizide Currently on ceftriaxone, patient is afebrile with no leukocytosis. We will check Pro-Home Calcitonin and if there is no reason we may discontinue with that later stage Cardiology consult labs and medication were reviewed.. Continue same treatment. Continue with symptomatic treatment. Resume home medication. Monitor labs and vitals. DVT and GI prophylaxis. Further recommendations as per clinical course of the patient DVT prophylaxis: heparin GI Prophylaxis: Pepcid PT/OT: Pending Prognosis is guarded
[2023-12-26 11:39] LABS: Glucose,Whole Blood 327 mg/dL (70-110)
[2023-12-26] MEDS: SODIUM CHLORIDE 0.9% 1,000 ML BAG IV STA (12:26)
[2023-12-26 13:37] LABS: Appearance,Urine Clear (Clear); Bilirubin,Urine Negative (Negative); Blood,Urine Negative (Negative); Color,Urine Colorless; Glucose,Urine (UA) 1+ (Negative); Ketones,Urine Negative (Negative); Leukocyte Esterase,Urine Negative (Negative); Nitrite,Urine Negative (Negative); Protein,Urine Negative (Negative); Specific Gravity,Urine 1.008 (1.001-1.035); Urobilinogen,Urine <2.0 mg/dL (<2.0)
[2023-12-26] MEDS: FUROSEMIDE 10 MG/ML 4 ML VIAL IV STA (13:54)
--- NOTE | 2023-12-26 14:05 | P.PN ---
Subjective Progress Note Date: 12/26/23 History of present illness: This is an 78-year-old male with past medical history of diabetes mellitus type 2, hypertension, prostate cancer status post radiation and surgeries several years ago. We have been asked to evaluate the patient for A-fib with RVR. Patient gives history that he has been having trouble with breathing for the past 1 to 2 weeks that comes and goes. He also has had chest pain across the top of his chest. The chest pain occurs with activity such as after he is golfing. He would then sit down and the pain would go away with rest. He denies orthopnea. Chest pressure seems to happen with exertion but not at rest. He denies history of stroke, kidney problems, lung problems. He has not seen a revenue analyst in the past and has had no cardiac workup in the past. He has not been admitted to the hospital recently. He states he is having good urine output. No fever or chills. No nausea or vomiting. His initial heart rates were in the 150s, pulse ox 88% requiring BiPAP, blood pressure 137/116. Blood pressure now 94/64, heart rate 92, pulse ox 97% on 4 L nasal cannula. Patient was on BiPAP during the night. Telemetry is atrial fibrillation running between 96 and 122 bpm. Patient was started on heparin drip. He is status post Cardizem bolus 10 mg x 2, Cardizem drip and later started on amiodarone drip. Discussed with patient and multiple family members at the bedside need for cardiac catheterization and patient and family are in agreement. They do understand that patient's renal function will need to be stable before this is d one. Most likely, this will occur on Thursday. EKG: #1 atrial fibrillation with IVCD at ventricular rate 150 bpm, #2 atrial fibrillation with ventricular rate of 107 bpm with IVCD Chest x-ray: #1 right middle lobe airspace opacities correlate for developing pneumonia. #2 cardiomegaly with increased interstitial lung markings possibly pulmonary vascular congestion. Medial right lower lung on prior radiograph now represent overlapping pulmonary trunk with pulmonary vascular congestion. Laboratory studies: WBC 8.1, hemoglobin 12.1, sodium 136, potassium 4.5, BUN 24 creatinine 1.56, CO2 19. Blood sugar 275. Troponin 0.334, 0.421, 0.547. proBNP 5710. Influenza A, influenza B, RSV, COVID-19 not detected. Home cardiac medications: Lisinopril 10 mg daily. Progress note 12/26/2023 Patient is seen and examined at bedside this a.m. He denies having any active chest pain chest pressure shortness of breath. He does report feeling much better since the time of admission. 124/65, heart rate 110 bpm, atrial fibrillation Overnight and this morning patient only had around 800 cc of urine output. Creatinine 1.8 today yesterday it was 1.5, on admission 1.18 HbA1c 9.3 Hemoglobin 11.9, echo EF of 25 to 30%, severely reduced global LV systolic function, moderate to severe mitral regurgitation, aortic valve thickening Physical examination: Gen: This is an 78-year-old male in no acute distress VS: reviewed HEENT: Head is atraumatic, normocephalic. Pupils equal, round. Sclerae is anicteric. NECK: Supple. No JVD. LUNGS: Clear to auscultation. No wheezes or rhonchi. No intercostal retrac tions. HEART: Irregular rate and rhythm. No murmur. ABDOMEN: Soft No tenderness. EXTREMITIES: No pedal edema. No calf tenderness. NEUROLOGICAL: Patient is awake, alert and oriented x3. Assessment: New onset paroxysmal atrial fibrillation with RVR NSTEMI, likely Type II from demand supply mismatch Acute HFrEF exacerbation, cardiomyopathy EF 25-30 % Severe mitral regurgitation Possible pneumonia on antibiotics Acute kidney injury Hypertension Diabetes mellitus type 2, a1c 9.3 echo EF of 25 to 30%, severely reduced global LV systolic function, moderate to severe mitral regurgitation, aortic valve thickening Plan: Increase metoprolol to 25 mg 3 times daily as heart rates are still high. Continue amiodarone 400 mg twice daily Continue IV heparin drip, aspirin 81 mg Patient's creatinine is trending up with IV Lasix. Creatinine 1.8 today yesterday 1.5. 800 cc urine output since yesterday. Would recommend a fluid challenge with 500 cc bolus and repeat renal function. Repeat two-view chest x-ray tomorrow a.m. Plan for TIFFANY and cardiac catheterization once renal function is improved. Most likely on Thursday. Objective - Vital Signs Vital signs: Vital Signs Temp 97.8 F 12/26/23 07:39 Pulse 118 H 12/26/23 12:49 Resp 16 12/26/23 12:49 BP 124/65 12/26/23 12:49 Pulse Ox 95 12/26/23 12:49 FiO2 35 12/26/23 09:56 Intake & Output 12/25/23 12/26/23 12/26/23 18:59 06:59 18:59 Intake Total 1231.341 166.608 660 Output Total 480 600 967 Balance 751.341 -433.392 -307 Weight 99.7 kg Intake: IV 10 Invasive Line 1 10 Intake, IV Titration 531.341 166.608 50 Amount Amiodarone 360 mg In 200 Dextrose 5% in Water 200 ml @ 1 MG/MIN 33.333 mls/ hr IV .Q6H [facility] Rx#: [id number] Diltiazem 125 mg In 43.917 Sodium Chloride 0.9% 100 ml @ 5 MG/HR 5 mls/hr IV .Q24H [facility] Rx#:[id number] Heparin Sod,Pork in 0.45% 237.424 166.608 NaCl 25,000 unit In 0.45 % NaCl 1 250ml.bag @ 9. 186 UNITS/KG/HR 10 mls/hr IV .Q24H [facility] Rx#: [id number] cefTRIAXone 2 gm In 50 50 Sodium Chloride 0.9% 50 ml @ 100 mls/hr IVPB Q24HR [facility] Rx#:[id number] Oral 700 600 Output: Urine 350 600 900 Post Void Residual 130 67 Other: Voiding Method Urinal Urinal Urinal # Voids 3 # Bowel Movements 0 - Labs CBC & Chem 7: 12/26/23 07:32 12/26/23 07:32 Labs: Abnormal Lab Results - Last 24 Hours (Table) 12/25/23 12/25/23 12/25/23 Range/Units 14:10 16:20 20:23 RBC (4.30-5.90) m/uL Hgb (13.0-17.5) gm/dL Hct (39.0-53.0) % APTT 42.7 H (22.0-30.0) sec Chloride (98-107) mmol/L Carbon Dioxide (22-30) mmol/L BUN (9-20) mg/dL Creatinine (0.66-1.25) mg/dL Glucose (74-99) mg/dL POC Glucose (mg/dL) 203 H 166 H (70-110) mg/dL Hemoglobin A1c (<=6.0) % Procalcitonin (0.02-0.09) ng/mL 12/25/23 12/26/23 12/26/23 Range/Units 21:30 06:14 07:32 RBC (4.30-5.90) m/uL Hgb (13.0-17.5) gm/dL Hct (39.0-53.0) % APTT 57.1 H (22.0-30.0) sec Chloride (98-107) mmol/L Carbon Dioxide (22-30) mmol/L BUN (9-20) mg/dL Creatinine (0.66-1.25) mg/dL Glucose (74-99) mg/dL POC Glucose (mg/dL) 210 H (70-110) mg/dL Hemoglobin A1c 9.3 H (<=6.0) % Procalcitonin (0.02-0.09) ng/mL 12/26/23 12/26/23 12/26/23 Range/Units 07:32 07:32 07:32 RBC 3.68 L (4.30-5.90) m/uL Hgb 11.9 L (13.0-17.5) gm/dL Hct 35.9 L (39.0-53.0) % APTT (22.0-30.0) sec Chloride 108 H (98-107) mmol/L Carbon Dioxide 20 L (22-30) mmol/L BUN 35 H (9-20) mg/dL Creatinine 1.81 H (0.66-1.25) mg/dL Glucose 233 H (74-99) mg/dL POC Glucose (mg/dL) (70-110) mg/dL Hemoglobin A1c (<=6.0) % Procalcitonin 0.20 H (0.02-0.09) ng/mL 12/26/23 12/26/23 Range/Units 07:32 11:38 RBC (4.30-5.90) m/uL Hgb (13.0-17.5) gm/dL Hct (39.0-53.0) % APTT 46.5 H (22.0-30.0) sec Chloride (98-107) mmol/L Carbon Dioxide (22-30) mmol/L BUN (9-20) mg/dL Creatinine (0.66-1.25) mg/dL Glucose (74-99) mg/dL POC Glucose (mg/dL) 327 H (70-110) mg/dL Hemoglobin A1c (<=6.0) % Procalcitonin (0.02-0.09) ng/mL Microbiology - Last 24 Hours (Table) 12/24/23 17:40 Blood Culture - Preliminary Blood 12/24/23 17:20 Blood Culture - Preliminary Blood
[2023-12-26 16:45] LABS: Glucose,Whole Blood 252 mg/dL (70-110)
[2023-12-26] MEDS: METOPROLOL TARTRATE 25 MG TAB PO SCH (16:58)
[2023-12-26 18:49] LABS: African American GFR (CKD) 36 (>60 ml/min/1.73 sqM); Anion Gap 9 mmol/L; Blood Urea Nitrogen 36 mg/dL (9-20); Calcium 8.3 mg/dL (8.4-10.2); Carbon Dioxide 23 mmol/L (22-30); Chloride 103 mmol/L (98-107); Glucose 236 mg/dL (74-99); Non-African American GFR(CKD) 31 (>60 ml/min/1.73 sqM); Potassium 4.6 mmol/L (3.5-5.1); Sodium 135 mmol/L (137-145)
[2023-12-26 20:09] LABS: Glucose,Whole Blood 174 mg/dL (70-110)
[2023-12-26] MEDS: SODIUM CHLORIDE 0.9% 1,000 ML IV SCH (23:00)
[2023-12-27 06:04] LABS: Glucose,Whole Blood 186 mg/dL (70-110)
[2023-12-27 08:14] LABS: African American GFR (CKD) 39 (>60 ml/min/1.73 sqM); Anion Gap 9 mmol/L; Blood Urea Nitrogen 33 mg/dL (9-20); Calcium 8.5 mg/dL (8.4-10.2); Carbon Dioxide 24 mmol/L (22-30); Chloride 103 mmol/L (98-107); Glucose 184 mg/dL (74-99); Non-African American GFR(CKD) 34 (>60 ml/min/1.73 sqM); Potassium 4.3 mmol/L (3.5-5.1); Sodium 136 mmol/L (137-145)
[2023-12-27] MEDS: ATORVASTATIN 40 MG TAB PO SCH (09:03)
[2023-12-27] MEDS ORDERED: ALPRAZolam 0.25 MG TAB PO PRN (11:24)
[2023-12-27 11:40] LABS: Glucose,Whole Blood 297 mg/dL (70-110)
--- NOTE | 2023-12-27 12:18 | P.NPCON ---
History of Present Illness - Reason for Consult acute renal failure - History of Present Illness patient is an 78-year-old male with history of hypertension and diabetes who was admitted to the hospital with complaints of shortness of breath which has been progressive over 2-3 days prior to admission. Patient denies any previous history of kidney diseases. Chest x-ray showed evidence of pulmonary vascular congestion and patient has been diuresed. Serum creatinine was 1.1 on initial admission and increased to 1.98 yesterday and today it is down to 1.86. Blood pressure was low with systolic in the 80s. Diuretics are currently on hold and patient has been started on IV fluids. Patient was also noted to be in A. fib with RVR, status post amiodarone and Cardizem drip. JOSE inhibitor's on hold. Post void residual not elevated Echocardiogram shows ejection fraction 25-30% with global systolic dysfunction and severe mitral regurgitation. Review of Systems as per HPI Past Medical History Past Medical History: Cancer, Diabetes Mellitus, Hypertension, Prostate Disorder Additional Past Medical History / Comment(s): prostate cancer History of Any Multi-Drug Resistant Organisms: None Reported Past Surgical History: Appendectomy, Orthopedic Surgery Additional Past Surgical History / Comment(s): hip replacement, Past Anesthesia/Blood Transfusion Reactions: No Reported Reaction Past Psychological History: No Psychological Hx Reported Smoking Status: Former smoker Past Alcohol Use History: None Reported Past Drug Use History: None Reported - Past Family History Father Family Medical History: Coronary Artery Disease (CAD) Mother Family Medical History: No Reported History Medications and Allergies Home Medications Medication Instructions Recorded Confirmed Type lisinopriL [Zestril] 10 mg PO DAILY 03/18/23 12/24/23 History metFORMIN HCL 1,000 mg PO BID 03/18/23 12/24/23 History Timolol 0.5% Ophth Soln [Timoptic 1 drop BOTH EYES BID 12/24/23 12/24/23 History 0.5% Ophth Soln] glipiZIDE XL [Glucotrol Xl] 10 mg PO DAILY 12/24/23 12/24/23 History Allergies Allergy/AdvReac Type Severity Reaction Status Date / Time Penicillins Allergy Unknown Verified 03/24/23 05:58 Childhood Physical Exam Vitals: Vital Signs Temp Pulse Resp BP Pulse Ox FiO2 12/27/23 11:43 95 16 105/74 94 L 12/27/23 09:02 98.0 F 113 H 18 122/82 96 12/27/23 07:43 97 35 12/27/23 04:34 35 12/27/23 04:00 70 16 110/64 94 L 12/27/23 02:00 16 12/27/23 00:00 72 16 97/59 94 L 12/26/23 20:00 97.8 F 79 16 107/59 97 12/26/23 16:56 116 H 16 135/80 96 12/26/23 14:00 16 12/26/23 12:49 118 H 16 124/65 95 Intake and Output 12/26/23 12/27/23 12/27/23 22:59 06:59 14:59 Intake Total 232 260 168.511 Output Total 900 125 Balance -668 135 168.511 Intake: IV 10 10 Invasive Line 1 10 10 Intake, IV Titration 250 50.511 Amount Heparin Sod,Pork in 0.45% 250 50.511 NaCl 25,000 unit In 0.45 % NaCl 1 250ml.bag @ 9. 186 UNITS/KG/HR 10 mls/hr IV .Q24H [facility] Rx#: [id number] Oral 222 118 Output: Urine 900 125 Other: Voiding Method Urinal Urinal Urinal Weight 72 kg 98.8 kg patient is awake, comfortable, no acute distress. Alert oriented 3. Examination of the heart S1 and S2 Examination of the lungs bilateral breath sounds are heard Abdomen is soft nontender Examination of lower extremities shows no significant edema [employer] exam grossly intact Results - Lab Results Most recent lab results Calcium 8.5 mg/dL (8.4-10.2) 12/27/23 07:12 Magnesium 1.7 mg/dL (1.6-2.3) 12/26/23 07:32 12/26/23 07:32 12/27/23 07:12 Assessment and Plan Assessment: 1. Acute kidney injury, ATN secondary to hypotension, cardiorenal syndrome and recent diuresis. UA is benign. diuretics currently on hold. Patient is receiving IV fluids 2. A. fib with RVR currently with controlled ventricular response and maintained on IV heparin. 3. Cardiomyopathy with EF of 25-30% 4. Acute non-ST elevation MN. 5. Type 2 diabetes Plan: Continue to hold diuretics for now as volume status has improved. DC IV fluids once this bag is done. continue to hold JOSE inhibitor's and metformin for now. Avoid any other nephrotoxic medications. Expect renal function to improve over the next 24-48 hours Can start SGLT2 inhibitors once renal function stabilizes. Thank you for the consultation. We will continue to follow the patient with you during his hospitalization.
--- NOTE | 2023-12-27 13:05 | P.PN ---
Subjective Progress Note Date: 12/27/23 History of present illness: This is an 78-year-old male with past medical history of diabetes mellitus type 2, hypertension, prostate cancer status post radiation and surgeries several years ago. We have been asked to evaluate the patient for A-fib with RVR. Patient gives history that he has been having trouble with breathing for the past 1 to 2 weeks that comes and goes. He also has had chest pain across the top of his chest. The chest pain occurs with activity such as after he is golfing. He would then sit down and the pain would go away with rest. He denies orthopnea. Chest pressure seems to happen with exertion but not at rest. He denies history of stroke, kidney problems, lung problems. He has not seen a wheel fitter in the past and has had no cardiac workup in the past. He has not been admitted to the hospital recently. He states he is having good urine output. No fever or chills. No nausea or vomiting. His initial heart rates were in the 150s, pulse ox 88% requiring BiPAP, blood pressure 137/116. Blood pressure now 94/64, heart rate 92, pulse ox 97% on 4 L nasal cannula. Patient was on BiPAP during the night. Telemetry is atrial fibrillation running between 96 and 122 bpm. Patient was started on heparin drip. He is status post Cardizem bolus 10 mg x 2, Cardizem drip and later started on amiodarone drip. Discussed with patient and multiple family members at the bedside need for cardiac catheterization and patient and family are in agreement. They do understand that patient's renal function will need to be stable before this is d one. Most likely, this will occur on Thursday. EKG: #1 atrial fibrillation with IVCD at ventricular rate 150 bpm, #2 atrial fibrillation with ventricular rate of 107 bpm with IVCD Chest x-ray: #1 right middle lobe airspace opacities correlate for developing pneumonia. #2 cardiomegaly with increased interstitial lung markings possibly pulmonary vascular congestion. Medial right lower lung on prior radiograph now represent overlapping pulmonary trunk with pulmonary vascular congestion. Laboratory studies: WBC 8.1, hemoglobin 12.1, sodium 136, potassium 4.5, BUN 24 creatinine 1.56, CO2 19. Blood sugar 275. Troponin 0.334, 0.421, 0.547. proBNP 5710. Influenza A, influenza B, RSV, COVID-19 not detected. Home cardiac medications: Lisinopril 10 mg daily. Progress note 12/26/2023 Patient is seen and examined at bedside this a.m. He denies having any active chest pain chest pressure shortness of breath. He does report feeling much better since the time of admission. 124/65, heart rate 110 bpm, atrial fibrillation Overnight and this morning patient only had around 800 cc of urine output. Creatinine 1.8 today yesterday it was 1.5, on admission 1.18 HbA1c 9.3 Hemoglobin 11.9, echo EF of 25 to 30%, severely reduced global LV systolic function, moderate to severe mitral regurgitation, aortic valve thickening December 27, 2023 BP 105/74, heart rate 95 bpm, afib on telemetry Yesterday morning creatinine increased from 1.54 on admission to 1.8. Repeat creatinine was 1.98. For this we held his diuretics and started him on gentle hydration with 60 cc/h for 12 hours giving him total of 1 L fluid. At this moment he appears euvolemic. His chest x-ray does not show any significant pul monary congestion at present. It is better as compared to CXR from admission Physical examination: Gen: This is an 78-year-old male in no acute distress VS: reviewed HEENT: Head is atraumatic, normocephalic. Pupils equal, round. Sclerae is anicteric. NECK: Supple. No JVD. LUNGS: Clear to auscultation. No wheezes or rhonchi. No intercostal retractions. HEART: Irregular rate and rhythm. No murmur. ABDOMEN: Soft No tenderness. EXTREMITIES: No pedal edema. No calf tenderness. NEUROLOGICAL: Patient is awake, alert and oriented x3. Assessment: New onset paroxysmal atrial fibrillation with RVR NSTEMI, likely Type II from demand supply mismatch Acute HFrEF exacerbation, cardiomyopathy EF 25-30 % Severe mitral regurgitation Possible pneumonia on antibiotics Acute kidney injury Hypertension Diabetes mellitus type 2, a1c 9.3 echo EF of 25 to 30%, severely reduced global LV systolic function, moderate to severe mitral regurgitation, aortic valve thickening Plan: Continue metoprolol to 25 mg 3 times daily. Continue amiodarone 400 mg twice daily Continue IV heparin drip, aspirin 81 mg Lipitor Hold Lasix. Discontinue IV fluids after total of 1 L fluids. Plan for TIFFANY and cardiac catheterization once renal function is improved. Most likely on Thursday. Procedural steps of both the procedures, risk factors including stroke, , vascular injury, [place], anesthesia related obligations were discussed with the patient and the family. Understanding these risk factors they would like to still proceed. Objective - Vital Signs Vital signs: Vital Signs Temp 98.0 F 12/27/23 09:02 Pulse 95 12/27/23 11:43 Resp 16 12/27/23 11:43 BP 105/74 12/27/23 11:43 Pulse Ox 94 L 12/27/23 11:43 FiO2 35 12/27/23 07:43 Intake & Output 12/26/23 12/27/23 12/27/23 18:59 06:59 18:59 Intake Total 1252 270 168.511 Output Total 1917 575 Balance -665 -305 168.511 Weight 72 kg 98.8 kg Intake: IV 20 20 Invasive Line 1 20 20 Intake, IV Titration 50 250 50.511 Amount Heparin Sod,Pork in 0.45% 250 50.511 NaCl 25,000 unit In 0.45 % NaCl 1 250ml.bag @ 9. 186 UNITS/KG/HR 10 mls/hr IV .Q24H JAYLEN Rx#: [id number] cefTRIAXone 2 gm In 50 Sodium Chloride 0.9% 50 ml @ 100 mls/hr IVPB Q24HR JAYLEN Rx#:[id number] Oral 1182 118 Output: Urine 1850 575 Post Void Residual 67 Other: Voiding Method Urinal Urinal Urinal # Voids 3 - Labs CBC & Chem 7: 12/26/23 07:32 12/27/23 07:12 Labs: Abnormal Lab Results - Last 24 Hours (Table) 12/26/23 12/26/23 12/26/23 Range/Units 13:22 16:44 17:53 APTT (22.0-30.0) sec Sodium 135 L (137-145) mmol/L BUN 36 H (9-20) mg/dL Creatinine 1.98 H (0.66-1.25) mg/dL Glucose 236 H (74-99) mg/dL POC Glucose (mg/dL) 252 H (70-110) mg/dL Calcium 8.3 L (8.4-10.2) mg/dL Urine Glucose (UA) 1+ H (Negative) 12/26/23 12/27/23 12/27/23 Range/Units 20:05 06:00 07:12 APTT (22.0-30.0) sec Sodium 136 L (137-145) mmol/L BUN 33 H (9-20) mg/dL Creatinine 1.86 H (0.66-1.25) mg/dL Glucose 184 H (74-99) mg/dL POC Glucose (mg/dL) 174 H 186 H (70-110) mg/dL Calcium (8.4-10.2) mg/dL Urine Glucose (UA) (Negative) 12/27/23 12/27/23 Range/Units 07:12 11:38 APTT 33.9 H (22.0-30.0) sec Sodium (137-145) mmol/L BUN (9-20) mg/dL Creatinine (0.66-1.25) mg/dL Glucose (74-99) mg/dL POC Glucose (mg/dL) 297 H (70-110) mg/dL Calcium (8.4-10.2) mg/dL Urine Glucose (UA) (Negative) Microbiology - Last 24 Hours (Table) 12/24/23 17:40 Blood Culture - Preliminary Blood 12/24/23 17:20 Blood Culture - Preliminary Blood
--- NOTE | 2023-12-27 16:00 | US ---
EXAMINATION TYPE: US kidneys/renal and bladder DATE OF EXAM: 12/27/2023 COMPARISON: NONE CLINICAL INDICATION: Male, 78 years old with history of sunil; SUNIL EXAM MEASUREMENTS: Right Kidney: 11.8 x 4.6 x 4.5 cm Left Kidney: 10.6 x 6.2 x 4.8 cm Right Kidney: lobulated contour Left Kidney: anechoic area lower pole =1.5 x 1.6 x 1.7cm masslike area area next to the cysts seen on a couple images unclear if this is lobulated normal parenchyma versus mass measuring 2.6 x 1.3 cm. Assessment Bladder: appears wnl Bilateral Jets seen: no There is no evidence for hydronephrosis at this point in time. No nephrolithiasis is seen. No michelle s are identified. The urinary bladder is anechoic. Bilateral ureteral jets are seen. IMPRESSION: No evidence for obstructive uropathy. Masslike area next to this left renal cyst possibly dromedary hump consider cross-sectional imaging f or confirmation.
[2023-12-27 16:41] LABS: Glucose,Whole Blood 177 mg/dL (70-110)
--- NOTE | 2023-12-27 16:41 | XR ---
EXAMINATION TYPE: XR chest 2V DATE OF EXAM: 12/27/2023 5:39 AM CLINICAL INDICATION:Male, 78 years old with history of CHF; PHH COMPARISON: 12/24/2023 TECHNIQUE: XR chest 2V. Frontal and lateral views of the chest.. FINDINGS: Lines/Tubes/Devices: No indwelling lines are seen. EKG leads overlie the chest. Heart/mediastinum: Heart size is stable, appears mildly enlarged. Mediastinum appears normal. Pulmonary vascularity: Slightly decreased central congestive changes and interstitial edema. Lungs/Pleura: Better aeration of the left lung base with improved visualization of the hemidiaphragm. Residual blunting of the costophrenic angles, especially posteriorly, suggesting residual small pleu ral effusions. Musculoskeletal: No acute osseous abnormality demonstrated in the limits of the exam. Degenerative c hanges of the spine and shoulders. Other findings: None. IMPRESSION: Cardiomegaly with improving vascular congestion and interstitial edema. Persistent residual small ple ural effusions.
[2023-12-27 21:09] LABS: Glucose,Whole Blood 282 mg/dL (70-110)
--- NOTE | 2023-12-28 02:54 | P.PN ---
Subjective Patient is a pleasant 78 years old male with past medical history of multiple medical problems including hypertension and diabetes Presents with respiratory distress the last 2 to 3 days duration and chest tightness. On admission patient was found to be in fluid overload with chest x-ray showing cardiomegaly with pulmonary vascular congestion, proBNP is elevated 5710. Patient also was mildly tachypneic and hypoxic, was placed on oxygen and he f eels better On admission his blood pressure was up but now on the low side 94/64 however patient is asymptomatic heart rate count went down from 140s-150s down to 92 He is afebrile He is mildly tachypneic requiring BiPAP but now he is off BiPAP on nasal cannula Hemoglobin 12, creatinine slightly up at 1.5 with baseline 1.1 Glucose elevated at home he was on metformin 1000 twice daily, glipizide 10 mg 12/26/2023 Patient awake alert at baseline His breathing improved since admission and currently he is on 2 L oxygen with good oxygen saturation and mild tachypnea He denies chest pain He still has tachycardia around 115 rest of vitals look stable Creatinine went up 1.8 compared to baseline of 1.0-1.1 Glucose better controlled He still has a mild leukocytosis Echocardiogram showed ejection fraction of 25 to 30% with severe global hypokinesia and moderate to severe mitral regurgitation Patient creatinine increased 1.8 we will going to hold his IV Lasix. Check urine analysis and bladder scan. And keep monitoring if further worsening may consider nephrology consult. Yesterday he made more than 1.5 L of urine output. Labs reviewed, CBC looks the same. Creatinine up as above. 12/27/23 Patient had a good sleep last night No chest pain Breathing is better He is using BiPAP overnight Still on heparin drip He is getting IV fluid with sodium bicarb at 60 mL/h with the plan of IV fluid per project designer Metoprolol increased to 3 times per day, he still mildly tachycardic. Blood pressure is a stable. Patient also on metoprolol 400 mg Continue with ceftriaxone x 5 days Objective - Vital Signs Vital signs: Vital Signs Temp 97.8 F 12/26/23 20:00 Pulse 70 12/27/23 04:00 Resp 16 12/27/23 04:00 BP 110/64 12/27/23 04:00 Pulse Ox 97 12/27/23 07:43 FiO2 35 12/27/23 07:43 Intake & Output 12/26/23 12/27/23 12/27/23 18:59 06:59 18:59 Intake Total 1252 270 Output Total 1917 575 Balance -665 -305 Weight 72 kg Intake: IV 20 20 Invasive Line 1 20 20 Intake, IV Titration 50 250 Amount Heparin Sod,Pork in 0.45% 250 NaCl 25,000 unit In 0.45 % NaCl 1 250ml.bag @ 9. 186 UNITS/KG/HR 10 mls/hr IV .Q24H JAYLEN Rx#: [id number] cefTRIAXone 2 gm In 50 Sodium Chloride 0.9% 50 ml @ 100 mls/hr IVPB Q24HR JAYLEN Rx#:[id number] Oral 1182 Output: Urine 1850 575 Post Void Residual 67 Other: Voiding Method Urinal Urinal # Voids 3 - Exam -GENERAL: The patient is alert and oriented x3, not in any acute distress. Well developed, well nourished. With malaise HEENT: Pupils are round and equally reacting to light. EOMI. No scleral icterus. No conjunctival pallor. Normocephalic, atraumatic. No pharyngeal erythema. No thyromegaly. CARDIOVASCULAR: S1 and S2 present. No murmurs, rubs, or gallops. PULMONARY: Chest is clear to auscultation, no wheezing , no crackles. ABDOMEN: Soft, nontender, nondistended, normoactive bowel sounds. No palpable organomegaly. MUSCULOSKELETAL: No joint swelling or deformity. EXTREMITIES: No cyanosis, clubbing, or pedal edema. NEUROLOGICAL: Gross neurological examination did not reveal any focal deficits. SKIN: No rashes. no petechiae. - Labs CBC & Chem 7: 12/26/23 07:32 12/27/23 07:12 Labs: Abnormal Lab Results - Last 24 Hours (Table) 12/26/23 12/26/23 12/26/23 Range/Units 07:32 07:32 07:32 APTT (22.0-30.0) sec Sodium (137-145) mmol/L Chloride 108 H (98-107) mmol/L Carbon Dioxide 20 L (22-30) mmol/L BUN 35 H (9-20) mg/dL Creatinine 1.81 H (0.66-1.25) mg/dL Glucose 233 H (74-99) mg/dL POC Glucose (mg/dL) (70-110) mg/dL Hemoglobin A1c 9.3 H (<=6.0) % Calcium (8.4-10.2) mg/dL Procalcitonin 0.20 H (0.02-0.09) ng/mL Urine Glucose (UA) (Negative) 12/26/23 12/26/23 12/26/23 Range/Units 07:32 11:38 13:22 APTT 46.5 H (22.0-30.0) sec Sodium (137-145) mmol/L Chloride (98-107) mmol/L Carbon Dioxide (22-30) mmol/L BUN (9-20) mg/dL Creatinine (0.66-1.25) mg/dL Glucose (74-99) mg/dL POC Glucose (mg/dL) 327 H (70-110) mg/dL Hemoglobin A1c (<=6.0) % Calcium (8.4-10.2) mg/dL Procalcitonin (0.02-0.09) ng/mL Urine Glucose (UA) 1+ H (Negative) 12/26/23 12/26/23 12/26/23 Range/Units 16:44 17:53 20:05 APTT (22.0-30.0) sec Sodium 135 L (137-145) mmol/L Chloride (98-107) mmol/L Carbon Dioxide (22-30) mmol/L BUN 36 H (9-20) mg/dL Creatinine 1.98 H (0.66-1.25) mg/dL Glucose 236 H (74-99) mg/dL POC Glucose (mg/dL) 252 H 174 H (70-110) mg/dL Hemoglobin A1c (<=6.0) % Calcium 8.3 L (8.4-10.2) mg/dL Procalcitonin (0.02-0.09) ng/mL Urine Glucose (UA) (Negative) 12/27/23 Range/Units 06:00 APTT (22.0-30.0) sec Sodium (137-145) mmol/L Chloride (98-107) mmol/L Carbon Dioxide (22-30) mmol/L BUN (9-20) mg/dL Creatinine (0.66-1.25) mg/dL Glucose (74-99) mg/dL POC Glucose (mg/dL) 186 H (70-110) mg/dL Hemoglobin A1c (<=6.0) % Calcium (8.4-10.2) mg/dL Procalcitonin (0.02-0.09) ng/mL Urine Glucose (UA) (Negative) Microbiology - Last 24 Hours (Table) 12/24/23 17:40 Blood Culture - Preliminary Blood 12/24/23 17:20 Blood Culture - Preliminary Blood Assessment and Plan Assessment: A-fib and RVR, present on admission Acute on chronic CHF, ejection fraction 25 to 30% Acute kidney injury on CKD stage III Acute hypoxic respiratory failure secondary to above. 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 Procalcitonin mildly elevated 0.20. Will continue to finish 5-day course of ceftriaxone for possible pulmonary infection tals. DVT and GI prophylaxis. Further recommendations as per clinical course of the patient DVT prophylaxis: heparin GI Prophylaxis: Pepcid PT/OT: Pending Prognosis is guarded
[2023-12-28] MEDS: SODIUM CHLORIDE 0.9% 1,000 ML in EMPTY BAG 1 BAG IV SCH (04:52)
[2023-12-28 06:35] LABS: Glucose,Whole Blood 204 mg/dL (70-110)
[2023-12-28] MEDS ORDERED: HEPARIN SODIUM,PORCINE 10,000 UNIT in SODIUM CHLORIDE 0.9% 1,000 ML IRRIGATION PRN (07:00)
[2023-12-28] MEDS ORDERED: HEPARIN SODIUM,PORCINE (1 ML) 2,500 UNIT in SODIUM CHLORIDE 0.9% 250 ML IRRIGATION PRN (07:00)
[2023-12-28] MEDS: ASPIRIN 325 MG TAB PO STA (08:29)
[2023-12-28] MEDS: ATORVASTATIN 80 MG TAB PO STA (08:29)
[2023-12-28 08:49] LABS: Basophils % (A) 1 %; Eosinophils # (A) 0.2 k/uL (0-0.7); Eosinophils % (A) 3 %; HCT 35.1 % (39.0-53.0); HGB 12.3 gm/dL (13.0-17.5); Lymphocytes % (A) 16 %; MCH 33.7 pg (25.0-35.0); MCHC 35.1 g/dL (31.0-37.0); MCV 96.1 fL (80.0-100.0); Mean Platelet Volume 8.2; Monocytes # (A) 0.3 k/uL (0-1.0); Monocytes % (A) 5 %; Neutrophils # (A) 4.7 k/uL (1.3-7.7); Neutrophils % (A) 74 %; Platelet Count 178 k/uL (150-450); Poikilocytosis Slight; RBC 3.65 m/uL (4.30-5.90); RDW 14.4 % (11.5-15.5); WBC 6.4 k/uL (3.8-10.6)
[2023-12-28] MEDS: FUROSEMIDE 10 MG/ML 4 ML VIAL IV STA (11:13)
[2023-12-28 11:22] LABS: African American GFR (CKD) 46 (>60 ml/min/1.73 sqM); Anion Gap 11 mmol/L; Blood Urea Nitrogen 28 mg/dL (9-20); Calcium 9.7 mg/dL (8.4-10.2); Carbon Dioxide 18 mmol/L (22-30); Chloride 111 mmol/L (98-107); Glucose 205 mg/dL (74-99); Non-African American GFR(CKD) 39 (>60 ml/min/1.73 sqM); Potassium 4.5 mmol/L (3.5-5.1); Sodium 140 mmol/L (137-145)
[2023-12-28 11:58] LABS: Glucose,Whole Blood 221 mg/dL (70-110)
--- NOTE | 2023-12-28 12:04 | P.PN ---
Subjective patient is seen for follow-up for acute kidney injury. Status post IV fluids for acute kidney injury. This morning patient is complaining of shortness of breath. He is tentatively scheduled for cardiac cath today however labs are still pending from today. Objective - Vital Signs Vital signs: Vital Signs Temp 98.0 F 12/28/23 08:20 Pulse 100 12/28/23 11:16 Resp 18 12/28/23 11:16 BP 114/79 12/28/23 11:16 Pulse Ox 94 L 12/28/23 11:16 FiO2 35 12/28/23 03:17 Intake & Output 12/27/23 12/28/23 12/28/23 18:59 06:59 18:59 Intake Total 677.339 310 105.126 Output Total 450 675 Balance 227.339 -365 105.126 Weight 98.8 kg 99.8 kg Intake: IV 20 Invasive Line 2 20 Intake, IV Titration 219.339 250 105.126 Amount Heparin Sod,Pork in 0.45% 219.339 250 105.126 NaCl 25,000 unit In 0.45 % NaCl 1 250ml.bag @ 9. 186 UNITS/KG/HR 10 mls/hr IV .Q24H JAYLEN Rx#: [id number] Oral 458 40 Output: Urine 450 675 Other: Voiding Method Urinal Urinal Urinal # Voids 2 # Bowel Movements 1 2 - Exam patient is awake, comfortable, no acute distress. Alert oriented 3. 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 ENGINEER exam grossly intact - Labs CBC & Chem 7: 12/28/23 07:49 12/28/23 07:49 Labs: Abnormal Lab Results - Last 24 Hours (Table) 12/27/23 12/27/23 12/27/23 Range/Units 16:30 16:43 21:07 RBC (4.30-5.90) m/uL Hgb (13.0-17.5) gm/dL Hct (39.0-53.0) % APTT 52.8 H (22.0-30.0) sec Chloride (98-107) mmol/L Carbon Dioxide (22-30) mmol/L BUN (9-20) mg/dL Creatinine (0.66-1.25) mg/dL Glucose (74-99) mg/dL POC Glucose (mg/dL) 177 H 282 H (70-110) mg/dL 12/28/23 12/28/23 12/28/23 Range/Units 06:33 07:49 07:49 RBC (4.30-5.90) m/uL Hgb (13.0-17.5) gm/dL Hct (39.0-53.0) % APTT 73.8 H (22.0-30.0) sec Chloride 111 H (98-107) mmol/L Carbon Dioxide 18 L (22-30) mmol/L BUN 28 H (9-20) mg/dL Creatinine 1.62 H (0.66-1.25) mg/dL Glucose 205 H (74-99) mg/dL POC Glucose (mg/dL) 204 H (70-110) mg/dL 12/28/23 12/28/23 Range/Units 07:49 11:57 RBC 3.65 L (4.30-5.90) m/uL Hgb 12.3 L (13.0-17.5) gm/dL Hct 35.1 L (39.0-53.0) % APTT (22.0-30.0) sec Chloride (98-107) mmol/L Carbon Dioxide (22-30) mmol/L BUN (9-20) mg/dL Creatinine (0.66-1.25) mg/dL Glucose (74-99) mg/dL POC Glucose (mg/dL) 221 H (70-110) mg/dL Microbiology - Last 24 Hours (Table) 12/24/23 17:40 Blood Culture - Preliminary Blood 12/24/23 17:20 Blood Culture - Preliminary Blood Assessment and Plan Assessment: 1. Acute kidney injury, ATN secondary to hypotension, cardiorenal syndrome and recent diuresis. UA is benign. Diuretics currently on hold. status post IV fluids 2. A. fib with RVR currently with controlled ventricular response and m aintained on IV heparin. 3. Cardiomyopathy with EF of 25-30% 4. Acute non-ST elevation [place]. 5. Type 2 diabetes 6. Volume overload Plan: IV Lasix 1. DC IV fluids serum creatinine has improved to 1.6. Okay to proceed with cardiac cath.
--- NOTE | 2023-12-28 14:18 | P.PN ---
Subjective HISTORY OF PRESENT ILLNESS: This is an 78-year-old male with past medical history of diabetes mellitus type 2, hypertension, prostate cancer status post radiation and surgeries several years ago. We have been asked to evaluate the patient for A-fib with RVR. Patient gives history that he has been having trouble with breathing for the past 1 to 2 weeks that comes and goes. He also has had chest pain across the top of his chest. The chest pain occurs with activity such as after he is golfing. He would then sit down and the pain would go away with rest. He denies orthopnea. Chest pressure seems to happen with exertion but not at rest. He denies history of stroke, kidney problems, lung problems. He has not seen a rental car ferry driver in the past and has had no cardiac workup in the past. He has not been admitted to the hospital recently. He states he is having good urine output. No fever or chills. No nausea or vomiting. His initial heart rates were in the 150s, pulse ox 88% requiring BiPAP, blood pressure 137/116. Blood pressure now 94/64, heart rate 92, pulse ox 97% on 4 L nasal cannula. Patient was on BiPAP during the night. Telemetry is atrial fibrillation running between 96 and 122 bpm. Patient was started on heparin drip. He is status post Cardizem bolus 10 mg x 2, Cardizem drip and later started on amiodarone drip. Discussed with patient and multiple family members at the bedside need for cardiac catheterization and patient and family are in agreement. They do understand that patient's renal function will need to be stable before this is done. Most likely, this will occur on Thursday. EKG: #1 atrial fibrillation with IVCD at ventricular rate 150 bpm, #2 atrial fibrillation with ventricular rate of 107 bpm with IVCD Chest x-ray: #1 right middle lobe airspace opacities correlate for developing pneumonia. #2 cardiomegaly with increased interstitial lung markings possibly pulmonary vascular congestion. Medial right lower lung on prior radiograph now represent overlapping pulmonary trunk with pulmonary vascular congestion. Laboratory studies: WBC 8.1, hemoglobin 12.1, sodium 136, potassium 4.5, BUN 24 creatinine 1.56, CO2 19. Blood sugar 275. Troponin 0.334, 0.421, 0.547. proBNP 5710. Influenza A, influenza B, RSV, COVID-19 not detected. Home cardiac medications: Lisinopril 10 mg daily. Progress note 12/26/2023 Patient is seen and examined at bedside this a.m. He denies having any active chest pain chest pressure shortness of breath. He does report feeling much better since the time of admission. 124/65, heart rate 110 bpm, atrial fibrillation echo EF of 25 to 30%, severely reduced global LV systolic function, moderate to severe mitral regurgitation, aortic valve thickening December 27, 2023 BP 105/74, heart rate 95 bpm, afib on telemetry Yesterday morning creatinine increased from 1.54 on admission to 1.8. Repeat creatinine was 1.98. For this we held his diuretics and started him on gentle hydration with 60 cc/h for 12 hours giving him total of 1 L fluid. At this moment he appears euvolemic. His chest x-ray does not show any significant pulmonary congestion at present. It is better as compared to CXR from admission 12/28/2023 Patient examined this morning. Patient is sitting up in the chair. Patient currently denies chest pain or pressure. He reports improvement in his shortness of breath. He remains in atrial fibrillation with controlled ventricular rate. Creatinine today has improved to 1.6. PHYSICAL EXAM: VITAL SIGNS: Reviewed. GENERAL: Well-developed in no acute distress. NECK: Supple. No JVD or thyromegaly LUNGS: Respirations even and unlabored. Lungs essentially clear to auscultation bilaterally. HEART: Irregular rate and rhythm. S1 and S2 heard. EXTREMITIES: Normal range of motion. No clubbing or cyanosis. Peripheral pulses intact. No lower extremity edema ASSESSMENT: Shortness of breath New onset paroxysmal atrial fibrillation with RVR Acute heart failure with reduced EF, 25 to 30% New onset cardiomyopathy, ischemic versus nonischemic Elevated troponins, flat, likely type II NE secondary to oxygen supply and demand mismatch, cannot rule out underlying CAD Acute kidney injury Severe mitral regurgitation Hypertension Diabetes, hemoglobin A1c 9.3 PLAN: Continue current cardiac medications Continue to monitor kidney function. Nephrology following. Diuretics per nephrology. Patient did receive a one-time dose of IV Lasix this morning Patient to undergo TIFFANY and cardiac catheterization today with Dr. Pelletier Continue IV heparin. Patient will need to be transition to oral anticoagulation post cardiac catheterization Further recommendations pending patient course Nurse practitioner note has been reviewed by physician. Signing provider agrees with the documented findings, assessment, and plan of care documented by RESIDENTIAL ADVISOR as a scribe. Objective - Vital Signs Vital signs: Vital Signs Temp 98.0 F 12/28/23 08:20 Pulse 100 12/28/23 11:16 Resp 18 12/28/23 11:16 BP 114/79 12/28/23 11:16 Pulse Ox 94 L 12/28/23 11:16 FiO2 35 12/28/23 03:17 Intake & Output 12/27/23 12/28/23 12/28/23 18:59 06:59 18:59 Intake Total 677.339 310 155.126 Output Total 450 675 600 Balance 227.339 -365 -444.874 Weight 98.8 kg 99.8 kg Intake: IV 20 Invasive Line 2 20 Intake, IV Titration 219.339 250 155.126 Amount Heparin Sod,Pork in 0.45% 219.339 250 105.126 NaCl 25,000 unit In 0.45 % NaCl 1 250ml.bag @ 9. 186 UNITS/KG/HR 10 mls/hr IV .Q24H JAYLEN Rx#: [id number] cefTRIAXone 2 gm In 50 Sodium Chloride 0.9% 50 ml @ 100 mls/hr IVPB Q24HR JAYLEN Rx#:[id number] Oral 458 40 0 Output: Urine 450 675 600 Other: Voiding Method Urinal Urinal Urinal # Voids 2 # Bowel Movements 1 2 - Labs CBC & Chem 7: 12/28/23 07:49 12/28/23 07:49 Labs: Abnormal Lab Results - Last 24 Hours (Table) 12/27/23 12/27/23 12/27/23 Range/Units 16:30 16:43 21:07 RBC (4.30-5.90) m/uL Hgb (13.0-17.5) gm/dL Hct (39.0-53.0) % APTT 52.8 H (22.0-30.0) sec Chloride (98-107) mmol/L Carbon Dioxide (22-30) mmol/L BUN (9-20) mg/dL Creatinine (0.66-1.25) mg/dL Glucose (74-99) mg/dL POC Glucose (mg/dL) 177 H 282 H (70-110) mg/dL 12/28/23 12/28/23 12/28/23 Range/Units 06:33 07:49 07:49 RBC (4.30-5.90) m/uL Hgb (13.0-17.5) gm/dL Hct (39.0-53.0) % APTT 73.8 H (22.0-30.0) sec Chloride 111 H (98-107) mmol/L Carbon Dioxide 18 L (22-30) mmol/L BUN 28 H (9-20) mg/dL Creatinine 1.62 H (0.66-1.25) mg/dL Glucose 205 H (74-99) mg/dL POC Glucose (mg/dL) 204 H (70-110) mg/dL 12/28/23 12/28/23 Range/Units 07:49 11:57 RBC 3.65 L (4.30-5.90) m/uL Hgb 12.3 L (13.0-17.5) gm/dL Hct 35.1 L (39.0-53.0) % APTT (22.0-30.0) sec Chloride (98-107) mmol/L Carbon Dioxide (22-30) mmol/L BUN (9-20) mg/dL Creatinine (0.66-1.25) mg/dL Glucose (74-99) mg/dL POC Glucose (mg/dL) 221 H (70-110) mg/dL Microbiology - Last 24 Hours (Table) 12/24/23 17:40 Blood Culture - Preliminary Blood 12/24/23 17:20 Blood Culture - Preliminary Blood
[2023-12-28] MEDS ORDERED: HEPARIN SODIUM 1,000 UN/ML (10ML VL) ONE (15:22)
[2023-12-28] MEDS ORDERED: fentaNYL (PF) 50 MCG/ML 2 ML AMP ONE (15:22)
[2023-12-28] MEDS ORDERED: VERAPAMIL 2.5 MG/ML 2 ML AMP ONE (15:22)
[2023-12-28] MEDS ORDERED: LIDOCAINE 1% INJ 10MG/ML (20 ML MDV) ONE (15:22)
[2023-12-28] MEDS: BENZOCAINE SPRAY 1 CAN TOPICAL ONE ×2 (15:30)
[2023-12-28] MEDS: fentaNYL (PF) 50 MCG/1 ML VIAL IVP ONE (15:30)
[2023-12-28] MEDS: MIDAZOLAM 2 MG/2 ML VIAL IVP ONE (15:30)
[2023-12-28] MEDS: LIDOCAINE 1% INJ 10MG/ML (20 ML MDV) SQ ONE (15:59)
[2023-12-28] MEDS: VERAPAMIL 2.5 MG/ML 4 ML VIAL INTRAARTER ONE (16:02)
[2023-12-28] MEDS: HEPARIN SODIUM 1,000 UN/ML (10ML VL) IVP ONE (16:07)
[2023-12-28] MEDS: IOPAMIDOL-370 100ML BTL INTRATHECA ONE (16:36)
[2023-12-28] MEDS: SODIUM CHLORIDE 0.9% 1,000 ML IV ONE (16:37)
[2023-12-28] MEDS: HEPARIN SODIUM,PORCINE (1 ML) 2,500 UNIT in SODIUM CHLORIDE 0.9% 250 ML IRRIGATION ONE (16:40)
[2023-12-28] MEDS: HEPARIN SODIUM,PORCINE 10,000 UNIT in SODIUM CHLORIDE 0.9% 1,000 ML IRRIGATION ONE (16:40)
--- NOTE | 2023-12-28 17:03 | P.TEE ---
Date of Procedure: 12/28/23 Description of Procedure(s): Procedure performed: 1. Transesophageal Echocardiogram with color flow doppler, pulsed wave doppler and continuous wave doppler 2. Moderate conscious sedation. Sedation time 18 mins. Indications: 78-year-old male presented to the hospital because of congestive heart failure exacerbation. His echo showed an EF of 20% with moderate to severe mitral regurgitation. He was scheduled for an TIFFANY to evaluate his mitral valve in further detail and assess its severity. Consent: I have discussed the risks, benefits and alternative therapies for the above-mentioned procedure. The patient has indicated understanding and acceptance of the risks of the procedure. Signed consent was obtained and was placed in the paper chart. Procedural Steps: Timeout was performed in usual fashion. Patient's heart rate, blood pressure, oxygen saturation and ECG were monitored. Benzocaine was sprayed liberally in the back of the throat. Bite block was placed between the jaw. 2 mg of Versed and [50] mcg of Fentanyl were administered intravenously. After achieving appropriate moderate conscious sedation, TIFFANY probe was advanced without difficulty and without any immediate complications to the esophagus. TIFFANY study was performed with color flow doppler, pulsed wave doppler and continuous wave doppler. The probe was then removed. Patient tolerated the procedure well. Patient was transferred to the post procedure area in stable and satisfactory condition. Throughout the procedure patient's heart rate, blood pressure, oxygen saturation and ECG were monitored. Total sedation time 18 mins. Complications: none FINDINGS Left Atrium: Severe left atrial dilatation. No evidence of mass or thrombus seen Left Atrial Appendage: No evidence of thrombus or mass seen in MARLINE. Dilated left atrial appendage Inter atrial septum: Intact inter-atrial septum with no evidence of atrial septal defect or patent foramen ovale on color Doppler. Left Ventricle: Moderately reduced global LV systolic function. Right Atrium: Mild RA dilatation. Right Ventricle: Normal global RV size and systolic function Aortic Valve: Trileaflet, thickened leaflets, mild sclerosis and calcification noticed.. No significant stenosis or regurgitation on color doppler assessment. Mitral Valve: Mild restriction of posterior mitral leaflet noticed which is affecting the appropriate closure of the valve. PISA radius 0.8 cm, Aliasing velocity 44 cm/s, MR V-max 552 cm/s, MR VTI 178.8 cm. EROA 0.3 cm, regurgitant volume 54 mL per beat. Severe mitral regurgitation. Pulmonic Valve: No significant stenosis or regurgitation. Pulmonic artery appears normal in size Tricuspid Valve: Moderate tricuspid regurgitation. Ascending aorta, Aortic root and Aortic arch: Normal size aortic root and ascending aorta. Aortic root 3.2 cm, ascending aorta 3.0 cm. Mild intimal thickening. Mild calcification noticed in ST junction Descending aorta: Mild intimal thickening. No evidence of large atheroma or bulky calcification No pericardial effusion CONCLUSION: Severe mitral regurgitation, likely secondary from restricted motion of posterior mitral leaflet Moderate tricuspid regurgitation Moderately reduced global LV systolic function No evidence of thrombus in MARLINE or left atrial appendage Severe left atrial dilatation Umair Pelletier MD, RPVI, FACC Thank you for allowing [facility] to participate in this patient's care. Feel free to reach out in case of any followup questions.
[2023-12-28] MEDS ORDERED: RX INFO: IV CONTRAST WAS GIVEN 1 EACH MISC MISCELLANE PRN (17:08)
[2023-12-28 17:11] LABS: Glucose,Whole Blood 167 mg/dL (70-110)
[2023-12-28] MEDS: ISOSORBIDE MONONITRATE ER 30 MG TAB.ER.24H PO SCH (17:24)
[2023-12-28] MEDS: SODIUM CHLORIDE 0.9% 1,000 ML IV SCH (17:25)
--- NOTE | 2023-12-28 17:28 | P.CARDCATH ---
Date of Procedure: 12/28/23 Description of Procedure: DIAGNOSTIC CORONARY ANGIOGRAPHY and LEFT HEART CATH REPORT PROCEDURES PERFORMED: Left heart catheterization Selective coronary angiography Moderate conscious sedation 39 mins [Ultrasound assisted] Right radial access INDICATION: Cardiomyopathy, NSTEMI 78-year-old presented to the hospital because of worsening shortness of breath and bilateral lower extremity edema. On admission he had evidence of congestive heart failure, SUNIL, atrial fibrillation with RVR. His echo showed EF of 20 to 25% with severe mitral regurgitation and dilated LV cavity. His troponins were elevated and his ECG showed A-fib with left bundle branch block. After optimizing him from A-fib and heart failure standpoint he was scheduled for heart catheterization procedure. CONSENT: I have explained the procedural steps of above-mentioned procedures in layman's terms to the patient. I discussed the risks (including but not limited to stroke, emergent vascular or cardiac surgery or ), benefits and alternative therapies for the above-mentioned procedure. I discussed the risks of sedation/analgesia and blood product administration (if indicated). The patient has indicated understanding and acceptance of these risks. Conscious Sedation: Patient's ECG, heart rate, blood pressure, pulse oximetry were monitored throughout the duration of procedure under my direct supervision. This procedure was just followed up by a TIFFANY. During TIFFANY patient received [2] mg Versed and [50] mcg Fentanyl for induction of moderate conscious sedation. Patient was still under the influence of previously administered medications. No additional medications were given. Total duration of moderate concious sedation 39 minutes. PROCEDURE: After explaining the risks, benefits and alternatives of the above mentioned procedures in detail to the patient, informed consent was obtained. Patient was taken to the catheterization lab, prepped and draped in usual sterile fashion using universal precuations. Ultrasound was used to identify the radial artery. 1% lidocaine was infiltrated over the right radial artery. A 6-Bahraini sheath was placed and secured in the right radial artery using modified Seldinger technique. The sheath was flushed and 5 mg verapamil was administered intra-arterially. J tipped wire was advanced under fluoroscopic guidance. Once the wire tip reached aortic root 6000 units of IV heparin was given. Over the wire JR5 diagnostic catheter was advanced. The wire in place the catheter was manipulated to cross the aortic valve and entered into LV under fluoroscopy guidance. The wire was removed and the catheter was flushed. LV pressures were obtained and pullback was performed under fluoroscopy. Catheter was manipulated to selectively engage the right coronary ostium. Right coronary angiography was performed in different angiographic projections. The JR5 diagnostic catheter was exchanged for a JL 3.5 diagnostic catheter over the J-wire. The wire was removed, catheter was flushed and manipulated under fluoroscopy to selectively engaged the left coronary ostium. Left coronary angioplasty was performed in different angiographic projections. It was noticed that LCx and LAD has separate ostium's. The JL 3.5 catheter could not opacify LAD. After multiple attempts of failing to opacify LAD, JL 3.5 catheter was exchanged for a JL 3 catheter. This catheter could not opacify LAD. This catheter was exchanged for a JL 4 catheter. This catheter failed to opacify LAD. This catheter was exchanged with a Paul catheter. Paul catheter was manipulated in such a way that it could opacify LAD. LAD angiograms were performed in different angiographic projections. Catheter was removed over the wire. Radial sheath was flushed. The right radial sheath was removed and a TR band was placed with excellent patent hemostasis was achieved. The patient tolerated the procedure well. Patient was transported back to the post catheterization holding area in stable condition. Angiographic images were reviewed in detail. Technical details Access: right radial Contrast used: 120 mL of Isovue Total radiation: 146 mGy Blood loss less than 15 mL Complications: None HEMODYNAMICS: Aortic Pressure: 104/62 mmHg. LV pressure: 110/6 mmHg. LVEDP 12 mmHg. There was no significant gradient across the aortic valve. SELECTIVE CORONARY ARTERIOGRAPHY: LEFT MAIN: Left main is essentially not present. LAD and LCx have separate ostium LEFT ANTERIOR DESCENDING CORONARY ARTERY: LAD arise from separate ostium. LAD o verall appears to be a smaller caliber vessel when compared to LCx. It reaches up to the apex. Proximal LAD has mild limited abnormalities. Mid LAD at the bifurcation site of diagonal 1 appears to have 80% calcific disease in Mcbride 1, 1, 1 fashion. Distal LAD appears to be a small caliber vessel. LEFT CIRCUMFLEX CORONARY ARTERY: It is nondominant vessel. Proximal LCx is large caliber around 3.5 mm. Proximal LCx trifurcates into OM1 OM 2 and AV groove branch. OM1 branch has diffuse calcific disease with 80 to 90% luminal narrowing involving the ostium and the proximal vessel. It appears to be a 2 mm vessel which is underfilling. OM 2 is a large-caliber vessel and has sequential disease with 90% stenosis in mid segment. AV groove branch is moderate caliber and has mild luminal irregularities. RIGHT CORONARY ARTERY: Dominant vessel. Proximal RCA has mild diffuse luminal irregularities. Mid RCA has diffuse luminal irregularities with 30% luminal narrowing. Distal RCA is mild diffuse disease. It bifurcates into PDA and PL branch. PDA has moderate diffuse disease IMPRESSION: 80% mid LAD stenosis 90% mid OM2 disease Moderate diffuse disease in PDA All vessel has HARRIET-3 flows Normal LVEDP Severe mitral regurgitation Type 2 diabetes A-fib PLAN: 75 cc fluids for 6 hours. After 6 hours give 1 dose of IV Lasix 20 mg Start Imdur 30 mg for preload reduction. Consider adding hydralazine low-dose for afterload reduction. Goal SBP less than 110 mmHg Monitor renal function. Use diuretics as needed May benefit from a cardioversion procedure, as restore external sinus rhythm can reduce myocardial oxygen demand and improve cardiac output, however maintenance of sinus rhythm would be a challenge considering dilated LV, severe MR and dilated LA. Eventually needs revascularization. Appreciate CT surgery consult. Will incline more towards surgery because of three-vessel disease, type 2 diabetes, severe MR. If high surgical risk, consider staged salvage PCI of OM2 and LAD and MitraClip referral Performing Physician Umair Pelletier MD, FACC, RPVI Thank you for allowing [facility] to participate in this patient's care. Feel free to reach out in case of any followup questions.
[2023-12-28 20:19] LABS: Glucose,Whole Blood 285 mg/dL (70-110)
[2023-12-28] MEDS: FUROSEMIDE 10 MG/ML 2 ML VIAL IV ONE (21:43)
[2023-12-29 05:25] LABS: Glucose,Whole Blood 252 mg/dL (70-110)
--- NOTE | 2023-12-29 06:00 | P.PN ---
Subjective Progress Note Date: 12/28/23 Patient is a pleasant 78 years old male with past medical history of multiple medical problems including hypertension and diabetes Presents with respiratory distress the last 2 to 3 days duration and chest tightness. On admission patient was found to be in fluid overload with chest x-ray showing cardiomegaly with pulmonary vascular congestion, proBNP is elevated 5710. Patient also was mildly tachypneic and hypoxic, was placed on oxygen and he feels better On admission his blood pressure was up but now on the low side 94/64 however patient is asymptomatic heart rate count went down from 140s-150s down to 92 He is afebrile He is mildly tachypneic requiring BiPAP but now he is off BiPAP on nasal cannula Hemoglobin 12, creatinine slightly up at 1.5 with baseline 1.1 Glucose elevated at home he was on metformin 1000 twice daily, glipizide 10 mg 12/26/2023 Patient awake alert at baseline His breathing improved since admission and currently he is on 2 L oxygen with good oxygen saturation and mild tachypnea He denies chest pain He still has tachycardia around 115 rest of vitals look stable Creatinine went up 1.8 compared to baseline of 1.0-1.1 Glucose better controlled He still has a mild leukocytosis Echocardiogram showed ejection fraction of 25 to 30% with severe global hypokinesia and moderate to severe mitral regurgitation Patient creatinine increased 1.8 we will going to hold his IV Lasix. Check urine analysis and bladder scan. And keep monitoring if further worsening may consider nephrology consult. Yesterday he made more than 1.5 L of urine output. Labs reviewed, CBC looks the same. Creatinine up as above. 12/27/23 Patient had a good sleep last night No chest pain Breathing is better He is using BiPAP overnight Still on heparin drip He is getting IV fluid with sodium bicarb at 60 mL/h with the plan of IV fluid per epic ambulatory specialists Metoprolol increased to 3 times per day, he still mildly tachycardic. Blood pressure is a stable. Patient also on metoprolol 400 mg Continue with ceftriaxone x 5 days 12/28/2023 Patient is seen in follow-up today with multiple consultations following including cardiology and nephrology. Patient currently maintained on 2 to 3 L via nasal cannula reporting continued shortness of breath with minimal exertion. Patient to continue telemetry monitoring as well as continued IV heparin. Patient is scheduled for TIFFANY/cardiac catheterization today with cardiology. Will await report. Patient is afebrile with no reports of chest pains. Patient reports that his atrial fibrillation is new. Family at the bedside with multiple questions and concerns that were answered. Currently awaiting follow- up labs to monitor kidney functions closely. Creatinine 1.6 today. Review of systems: Constitutional: No reports of fatigue, fever, or chills Cardiovascular: No reports of chest pain or palpitations Respiratory: reports of shortness of breath with minimal exertion GI: No reports of nausea, vomiting, or diarrhea : No reports of dysuria or retention Neurovascular: No reports of weakness or numbness All medications have been reviewed physical exam: GENERAL: The patient is alert and oriented x3, not in any acute distress. Well developed, well nourished. Elderly appearing, obese HEENT: Pupils are round and equally reacting to light. EOMI. No scleral icterus. No conjunctival pallor. Normocephalic, atraumatic. No pharyngeal erythema. No thyromegaly. CARDIOVASCULAR: S1 and S2 muffled, irregular PULMONARY: Diminished breath sounds bilaterally otherwise chest is clear to auscultation, no wheezing , no crackles. ABDOMEN: Soft, obese, nontender, nondistended, normoactive bowel sounds. No palpable organomegaly. MUSCULOSKELETAL: No joint swelling or deformity. EXTREMITIES: No cyanosis, clubbing, or pedal edema. NEUROLOGICAL: Gross neurological examination did not reveal any focal deficits. SKIN: No rashes. no petechiae. Assessment: A-fib and RVR, new onset present on admission Acute on chronic CHF, ejection fraction 25 to 30% Acute kidney injury on CKD stage III Acute hypoxic respiratory failure secondary to above. Improving Chronic anemia Diabetes mellitus Hypertension Obesity with BMI of 36.1 GI prophylaxis DVT prophylaxis Full code Plan: Continue with heparin drip, amiodarone and metoprolol per manager non profit, scheduled to undergo TIFFANY with cardiac catheterization with Dr. Pelletier today. Will await report Will continue with IV diuretics per the discretion of cardiology and nephrology as kidney functions are slightly worsened. Creatinine is 1.6 today. Will follow-up on repeat labs. Continue monitoring Accu-Cheks before meals and at bedtime and will continue with sliding scale. Continue holding metformin and glipizide at this time Will await cardiology report Due to multiple complex medical issues, prognosis is guarded The impression and plan of care has been dictated by Fide Pool, Nurse Practitioner as directed. Dr. Sarah MD I have performed a history and examination and MDM of this patient, discussed the same with the dictator, and agree with the dictator's assessment and plan as written ,documented as a scribe. Based on total visit time, I have performed more than 50% of the visit. Objective - Vital Signs Vital signs: Vital Signs Temp 98.0 F 12/28/23 08:20 Pulse 93 12/28/23 08:20 Resp 18 12/28/23 08:20 BP 154/98 12/28/23 08:20 Pulse Ox 95 12/28/23 09:50 FiO2 35 12/28/23 03:17 Intake & Output 12/27/23 12/28/23 12/28/23 18:59 06:59 18:59 Intake Total 677.339 310 Output Total 450 675 Balance 227.339 -365 Weight 98.8 kg 99.8 kg Intake: IV 20 Invasive Line 2 20 Intake, IV Titration 219.339 250 Amount Heparin Sod,Pork in 0.45% 219.339 250 NaCl 25,000 unit In 0.45 % NaCl 1 250ml.bag @ 9. 186 UNITS/KG/HR 10 mls/hr IV .Q24H [facility] Rx#: [id number] Oral 458 40 Output: Urine 450 675 Other: Voiding Method Urinal Urinal # Bowel Movements 1 - Labs CBC & Chem 7: 12/28/23 07:49 12/28/23 07:49 Labs: Abnormal Lab Results - Last 24 Hours (Table) 12/27/23 12/27/23 12/27/23 Range/Units 11:38 16:30 16:43 RBC (4.30-5.90) m/uL Hgb (13.0-17.5) gm/dL Hct (39.0-53.0) % APTT 52.8 H (22.0-30.0) sec POC Glucose (mg/dL) 297 H 177 H (70-110) mg/dL 12/27/23 12/28/23 12/28/23 Range/Units 21:07 06:33 07:49 RBC (4.30-5.90) m/uL Hgb (13.0-17.5) gm/dL Hct (39.0-53.0) % APTT 73.8 H (22.0-30.0) sec POC Glucose (mg/dL) 282 H 204 H (70-110) mg/dL 12/28/23 Range/Units 07:49 RBC 3.65 L (4.30-5.90) m/uL Hgb 12.3 L (13.0-17.5) gm/dL Hct 35.1 L (39.0-53.0) % APTT (22.0-30.0) sec POC Glucose (mg/dL) (70-110) mg/dL Microbiology - Last 24 Hours (Table) 12/24/23 17:40 Blood Culture - Preliminary Blood 12/24/23 17:20 Blood Culture - Preliminary Blood
[2023-12-29] MEDS: PANTOPRAZOLE 40 MG TABLET PO SCH (07:06)
--- NOTE | 2023-12-29 09:28 | US ---
EXAMINATION TYPE: Pre-Operative Non-Invasive Evaluation of the hand for Potential Radial Artery Case ahumada, Measurements only DATE OF EXAM: 12/29/2023 9:12 AM CLINICAL INDICATION: Male, 78 years old with history of Pre-Op Cardiac Surgery; preop SIDE PERFORMED: Left TECHNIQUE: Radial artery is measured utilizing real time linear array sonography. Dominant hand: Right Duplex Findings: Radial Artery: Color flow seen Measurements in mm, transverse view: Left Radial: mm Proximal: 4.4 x 4.2 mm Mid: 4.9 x 4.2 mm Distal: 4.0 x 3.7 mm IMPRESSION: 1. Left Radial artery measurements listed above.
--- NOTE | 2023-12-29 09:29 | US ---
EXAMINATION TYPE: US vein mapping BILAT DATE OF EXAM: 12/29/2023 9:13 AM COMPARISON: NONE CLINICAL INDICATION: Male, 78 years old with history of PreOp Cardiac Surgery; preop SIDE PERFORMED: Bilateral TECHNIQUE: Lower extremity saphenous vein is examined and measured utilizing real time linear array sonography. DUPLEX FINDINGS: Greater Saphenous: Color flow seen Lesser Saphenous: Color flow seen Measurements in mm: Right Greater Saphenous: Groin: 10.4 x 8.2 mm High Thigh: 7.5 x 5.1 mm Mid Thigh: 6.3 x 4.5 mm Above Knee: 6.9 x 5.3 mm Knee: 6.2 x 5.4 mm Below Knee: 4.0 x 3.8 mm Mid Calf: 4.2 x 3.2 mm At Ankle: 4.9 x 3.7 mm Left Greater Saphenous: Groin: 5.4 x 4.2 mm High Thigh: 6.7 x 5.0 mm Mid Thigh: 7.3 x 5.7 mm Above Knee: 6.0 x 4.2 mm Knee: 5.1 x 3.7 mm Below Knee: 4.3 x 3.9 mm Mid Calf: 3.8 x 3.9 mm At Ankle: 5.3 x 4.3 mm IMPRESSION: 1. Bilateral GSV measurements listed above. 2. Performing surgeon to determine viability as conduit.
--- NOTE | 2023-12-29 09:29 | US ---
EXAMINATION TYPE: US carotid duplex BILAT DATE OF EXAM: 12/29/2023 COMPARISON: NONE CLINICAL INDICATION: Male, 78 years old with history of Pre-Op Cardiac Surgery; TECHNIQUE: Carotid duplex ultrasound examination. Indirect Doppler criteria was utilized. FINDINGS: EXAM MEASUREMENTS: RIGHT: Peak Systolic Velocity (PSV) cm/sec ----- Right CCA: 75.7 ----- Right ICA: 61.0 ----- Right ECA: 157.5 ICA/CCA ratio: 0.8 RIGHT: End Diastole cm/sec ----- Right CCA: 17.5 ----- Right ICA: 25.2 ----- Right ECA: 7.7 LEFT: Peak Systolic Velocity (PSV) cm/sec ----- Left CCA: 88.5 ----- Left ICA: 93.8 ----- Left ECA: 129.9 ICA/CCA ratio: 1.1 LEFT: End Diastole cm/sec ----- Left CCA: 25.0 ----- Left ICA: 29.0 ----- Left ECA: 9.7 VERTEBRALS (direction of flow): Right Vertebral: Antegrade Left Vertebral: Antegrade Rhythm: Normal SENIOR INVESTIGATOR NOTES: plaque seen in bilat bulbs. No significantly elevated velocities seen bilaterally. IMPRESSION: Less than 50% stenosis of the bilateral carotid bifurcations. Criteria for Assigning % of Stenosis / Diameter reduction (Estimation based on the indirect measurements of the internal carotid artery velocities (ICA PSV). 1. Normal (no stenosis)=ICA PSV < 125 cm/s: ratio < 2.0: ICA EDV<40 cm/s. 2. Less than 50% stenosis=ICA PSV < 125 cm/s: ratio < 2.0: ICA EDV<40 cm/s. 3. 50 to 69% stenosis=ICA PSV of 125 to 230 cm/s: ration 2.0 ? 4.0: ICA EDV 40-100 cm/s. 4. Greater than 70% stenosis to near occlusion= ICA PSV > 230 cm/s: ratio > 4.0: ICA EDV > 100 cm/s. 5. Near occlusion= ICA PSV velocities may be low or undetectable: variable ratio and ICA EDV. 6. Total occlusion=unable to detect flow.
--- NOTE | 2023-12-29 10:18 | US ---
EXAMINATION TYPE: US arterial LE single level DATE OF EXAM: 12/29/2023 9:41 AM CLINICAL INDICATION: Male, 78 years old with history of Ankle Brachial Index (OLI) ; PreOp, Right rad ial heart cath History of: Smoker: No Hypertension: Takes medication Diabetic: Yes Hyperlipidemia: N/A TIA/CVA: N/A Previous Vascular Surgery: No CAD: Yes Vascular Ulcers: No Claudication: No Gangrene: No Doppler Waveforms: Right: Monophasic Left: Monophasic Right Brachial Pressure: Deferred due recent right radial heart cath Left Brachial Pressure: 133 Ankle-Brachial Indices: Right: 1.0 Left: 1.0 (Vessel hardening > 1.4; Normal 0.9 - 1.4, Moderate 0.7 - 0.9, Severe 0.5-0.7) IMPRESSION: Ankle-brachial indices within normal limits.
[2023-12-29 10:42] LABS: ALT 14 U/L (4-49); AST 19 U/L (17-59); African American GFR (CKD) 50 (>60 ml/min/1.73 sqM); Albumin 3.4 g/dL (3.5-5.0); Alkaline Phosphatase 57 U/L (38-126); Anion Gap 6 mmol/L; Blood Urea Nitrogen 25 mg/dL (9-20); Calcium 8.9 mg/dL (8.4-10.2); Carbon Dioxide 24 mmol/L (22-30); Chloride 107 mmol/L (98-107); Glucose 235 mg/dL (74-99); Magnesium 1.9 mg/dL (1.6-2.3); Non-African American GFR(CKD) 43 (>60 ml/min/1.73 sqM); Potassium 4.4 mmol/L (3.5-5.1); Sodium 137 mmol/L (137-145); Total Bilirubin 0.6 mg/dL (0.2-1.3); Total Protein 5.5 g/dL (6.3-8.2)
--- NOTE | 2023-12-29 10:51 | CT ---
EXAMINATION TYPE: CT chest wo con CT DLP: 579.3 mGycm, Automated exposure control for dose reduction was used. DATE OF EXAM: 12/29/2023 10:47 AM COMPARISON: Chest radiograph 12/27/2023 CLINICAL INDICATION:Male, 78 years old with history of PreOp Cardiac Surgery; PH, PreOp Cardiac Surg calin eval aorta TECHNIQUE: Multiple axial images were obtained through the chest without IV contrast. Lack of IV or o ral contrast limits evaluation of solid and hollow organ viscera. . Coronal and sagittal reformats re viewed. FINDINGS: LUNGS/ PLEURA: Small bilateral pleural effusions with associated atelectasis. No suspicious pulmonary nodule or mass. No pneumothorax. AIRWAY: Patent and unremarkable.. HEART: Mildly enlarged. No pericardial effusion. Moderate three-vessel coronary arterial calcificatio ns. MEDIASTINUM: No gross evidence of adenopathy. VASCULATURE: No aortic aneurysm. Conventional three-vessel aortic arch with minimal atherosclerotic calcification at the origins. Minimal atherosclerotic calcification of the aortic arch and the descen ding thoracic aorta at the hiatus. MUSCULOSKELETAL: No acute osseous abnormalities. Slight dextrocurvature of the thoracic spine, multil evel degenerative disease. Right calcific tendinosis with calcification along the supraspinatus tendo n. SOFT TISSUES/LYMPH NODES: Bilateral gynecomastia. There is a 7 mm superficial lesion just lateral to the right nipple likely representing a sebaceous cyst. LOWER NECK: No significant findings. UPPER ABDOMEN: Hydropic gallbladder measuring 13.4 x 6.3 cm. IMPRESSION: 1. Small bilateral pleural effusions with associated atelectasis, mild cardiomegaly, and interstitial thickening. Findings suggest CHF exacerbation. 2. Moderate three-vessel coronary calcifications. 3. Minimal atherosclerotic calcification of the aorta and its branches. 4. Hydropic gallbladder.
[2023-12-29 11:05] LABS: Basophils % (A) 1 %; Eosinophils # (A) 0.2 k/uL (0-0.7); Eosinophils % (A) 4 %; HCT 32.2 % (39.0-53.0); HGB 10.8 gm/dL (13.0-17.5); Lymphocytes # (A) 0.7 k/uL (1.0-4.8); Lymphocytes % (A) 14 %; MCH 32.3 pg (25.0-35.0); MCHC 33.6 g/dL (31.0-37.0); MCV 96.1 fL (80.0-100.0); Mean Platelet Volume 8.3; Monocytes # (A) 0.4 k/uL (0-1.0); Monocytes % (A) 7 %; Neutrophils # (A) 3.8 k/uL (1.3-7.7); Neutrophils % (A) 73 %; Platelet Count 189 k/uL (150-450); Poikilocytosis Slight; RBC 3.35 m/uL (4.30-5.90); RDW 14.2 % (11.5-15.5); WBC 5.2 k/uL (3.8-10.6)
[2023-12-29 11:26] LABS: Glucose,Whole Blood 280 mg/dL (70-110)
--- NOTE | 2023-12-29 12:15 | XR ---
EXAMINATION TYPE: XR chest 2V DATE OF EXAM: 12/29/2023 10:36 AM CLINICAL INDICATION:Male, 78 years old with history of PreOp Cardiac Surgery; [facility] COMPARISON: Chest radiographs from 12/27/2023. TECHNIQUE: XR chest 2V Frontal view of the chest. FINDINGS: Lungs/Pleura: There is flattening of the diaphragm with increased lucency of the lungs. No evidence o f pneumothorax, pleural effusion or focal consolidation. Pulmonary vascularity: Unremarkable. Heart/mediastinum: Cardiomediastinal silhouette is prominent in size. Musculoskeletal: No acute osseous pathology. IMPRESSION: 1. Posterior pleural effusion suggested on lateral view. 2. COPD changes.
--- NOTE | 2023-12-29 12:44 | P.PN ---
Subjective HISTORY OF PRESENT ILLNESS: This is an 78-year-old male with past medical history of diabetes mellitus type 2, hypertension, prostate cancer status post radiation and surgeries several years ago. We have been asked to evaluate the patient for A-fib with RVR. Patient gives history that he has been having trouble with breathing for the past 1 to 2 weeks that comes and goes. He also has had chest pain across the top of his chest. The chest pain occurs with activity such as after he is golfing. He would then sit down and the pain would go away with rest. He denies orthopnea. Chest pressure seems to happen with exertion but not at rest. He denies history of stroke, kidney problems, lung problems. He has not seen a senior controls analyst in the past and has had no cardiac workup in the past. He has not been admitted to the hospital recently. He states he is having good urine output. No fever or chills. No nausea or vomiting. His initial heart rates were in the 150s, pulse ox 88% requiring BiPAP, blood pressure 137/116. Blood pressure now 94/64, heart rate 92, pulse ox 97% on 4 L nasal cannula. Patient was on BiPAP during the night. Telemetry is atrial fibrillation running between 96 and 122 bpm. Patient was started on heparin drip. He is status post Cardizem bolus 10 mg x 2, Cardizem drip and later started on amiodarone drip. Discussed with patient and multiple family members at the bedside need for cardiac catheterization and patient and family are in agreement. They do understand that patient's renal function will need to be stable before this is done. Most likely, this will occur on Thursday. EKG: #1 atrial fibrillation with IVCD at ventricular rate 150 bpm, #2 atrial fibrillation with ventricular rate of 107 bpm with IVCD Chest x-ray: #1 right middle lobe airspace opacities correlate for developing pneumonia. #2 cardiomegaly with increased interstitial lung markings possibly pulmonary vascular congestion. Medial right lower lung on prior radiograph now represent overlapping pulmonary trunk with pulmonary vascular congestion. Laboratory studies: WBC 8.1, hemoglobin 12.1, sodium 136, potassium 4.5, BUN 24 creatinine 1.56, CO2 19. Blood sugar 275. Troponin 0.334, 0.421, 0.547. proBNP 5710. Influenza A, influenza B, RSV, COVID-19 not detected. Home cardiac medications: Lisinopril 10 mg daily. Progress note 12/26/2023 Patient is seen and examined at bedside this a.m. He denies having any active chest pain chest pressure shortness of breath. He does report feeling much better since the time of admission. 124/65, heart rate 110 bpm, atrial fibrillation echo EF of 25 to 30%, severely reduced global LV systolic function, moderate to severe mitral regurgitation, aortic valve thickening December 27, 2023 BP 105/74, heart rate 95 bpm, afib on telemetry Yesterday morning creatinine increased from 1.54 on admission to 1.8. Repeat creatinine was 1.98. For this we held his diuretics and started him on gentle hydration with 60 cc/h for 12 hours giving him total of 1 L fluid. At this moment he appears euvolemic. His chest x-ray does not show any significant pulmonary congestion at present. It is better as compared to CXR from admission 12/28/2023 Patient examined this morning. Patient is sitting up in the chair. Patient currently denies chest pain or pressure. He reports improvement in his shortness of breath. He remains in atrial fibrillation with controlled ventricular rate. Creatinine today has improved to 1.6. 12/29/2023 Patient is status post cardiac catheterization and TIFFANY with Dr. Pelletier. Cardiac catheterization revealed 80% mid LAD stenosis, 90% mid OM 2 disease, and mode rate diffuse disease in PDA. Patient also underwent TIFFANY revealing severe mitral regurgitation, moderate tricuspid regurgitation, severe left atrial dilatation And no evidence of thrombus. Patient remains in atrial fibrillation with controlled ventricular rate. He currently denies any chest pain or pressure. Denies any shortness of breath. PHYSICAL EXAM: VITAL SIGNS: Reviewed. GENERAL: Well-developed in no acute distress. NECK: Supple. No JVD or thyromegaly LUNGS: Respirations even and unlabored. Lungs essentially clear to auscultation bilaterally. HEART: Irregular rate and rhythm. S1 and S2 heard. EXTREMITIES: Normal range of motion. No clubbing or cyanosis. Peripheral pulses intact. No lower extremity edema ASSESSMENT: Shortness of breath New onset paroxysmal atrial fibrillation with RVR Acute heart failure with reduced EF, 25 to 30% New onset cardiomyopathy, ischemic Status post cardiac catheterization revealing triple-vessel CAD, 80% mid LAD, 90% OM 2, and moderate diffuse disease in PDA Elevated troponins, flat, likely type II HI secondary to oxygen supply and deman d mismatch Acute kidney injury Severe mitral regurgitation per TIFFANY Hypertension Diabetes, hemoglobin A1c 9.3 PLAN: Continue current cardiac medications Continue to monitor kidney function. Nephrology following. Resume IV heparin. Patient will need to be eventually transitioned to oral anticoagulation CTS has been consulted for CABG and MVR. Await evaluation and recommendations Further recommendations pending patient course Nurse practitioner note has been reviewed by physician. Signing provider agrees with the documented findings, assessment, and plan of care documented by REGISTERED DENTAL ASSISTANT RDA as a scribe. Objective - Vital Signs Vital signs: Vital Signs Temp 97.7 F 12/29/23 08:00 Pulse 104 H 12/29/23 08:00 Resp 18 12/29/23 08:00 BP 133/74 12/29/23 08:00 Pulse Ox 94 L 12/29/23 08:00 FiO2 35 12/29/23 00:41 Intake & Output 12/28/23 12/29/23 12/29/23 18:59 06:59 18:59 Intake Total 227.467 550 190 Output Total 1400 1750 400 Balance -1172.533 -1200 -210 Weight 99.8 kg 97.5 kg Intake: IV 10 10 Invasive Line 3 10 10 Intake, IV Titration 227.467 Amount Heparin Sod,Pork in 0.45% 177.467 NaCl 25,000 unit In 0.45 % NaCl 1 250ml.bag @ 9. 186 UNITS/KG/HR 10 mls/hr IV .Q24H [facility] Rx#: [id number] cefTRIAXone 2 gm In 50 Sodium Chloride 0.9% 50 ml @ 100 mls/hr IVPB Q24HR [facility] Rx#:[id number] Oral 0 540 180 Output: Urine 1400 1750 400 Other: Voiding Method Urinal Urinal Urinal # Voids 2 # Bowel Movements 2 - Labs CBC & Chem 7: 12/29/23 09:35 12/29/23 09:35 Labs: Abnormal Lab Results - Last 24 Hours (Table) 12/28/23 12/28/23 12/29/23 Range/Units 17:09 20:17 05:24 RBC (4.30-5.90) m/uL Hgb (13.0-17.5) gm/dL Hct (39.0-53.0) % Lymphocytes # (1.0-4.8) k/uL BUN (9-20) mg/dL Creatinine (0.66-1.25) mg/dL Glucose (74-99) mg/dL POC Glucose (mg/dL) 167 H 285 H 252 H (70-110) mg/dL Total Protein (6.3-8.2) g/dL Albumin (3.5-5.0) g/dL 12/29/23 12/29/23 12/29/23 Range/Units 09:35 09:35 11:24 RBC 3.35 L (4.30-5.90) m/uL Hgb 10.8 L (13.0-17.5) gm/dL Hct 32.2 L (39.0-53.0) % Lymphocytes # 0.7 L (1.0-4.8) k/uL BUN 25 H (9-20) mg/dL Creatinine 1.52 H (0.66-1.25) mg/dL Glucose 235 H (74-99) mg/dL POC Glucose (mg/dL) 280 H (70-110) mg/dL Total Protein 5.5 L (6.3-8.2) g/dL Albumin 3.4 L (3.5-5.0) g/dL Microbiology - Last 24 Hours (Table) 12/24/23 17:40 Blood Culture - Preliminary Blood 12/24/23 17:20 Blood Culture - Preliminary Blood
--- NOTE | 2023-12-29 13:15 | P.PN ---
Subjective patient is seen for follow-up for acute kidney injury. status post cardiac catheterization yesterday. Surgical consult is pending. Serum creatinine had decreased to 1.6 yesterday. It is 1.5 today. No significant complaints today. Objective - Vital Signs Vital signs: Vital Signs Temp 97.7 F 12/29/23 08:00 Pulse 104 H 12/29/23 08:00 Resp 18 12/29/23 08:00 BP 133/74 12/29/23 08:00 Pulse Ox 94 L 12/29/23 08:00 FiO2 35 12/29/23 00:41 Intake & Output 12/28/23 12/29/23 12/29/23 18:59 06:59 18:59 Intake Total 227.467 550 190 Output Total 1400 1750 400 Balance -1172.533 -1200 -210 Weight 99.8 kg 97.5 kg Intake: IV 10 10 Invasive Line 3 10 10 Intake, IV Titration 227.467 Amount Heparin Sod,Pork in 0.45% 177.467 NaCl 25,000 unit In 0.45 % NaCl 1 250ml.bag @ 9. 186 UNITS/KG/HR 10 mls/hr IV .Q24H [facility] Rx#: [id number] cefTRIAXone 2 gm In 50 Sodium Chloride 0.9% 50 ml @ 100 mls/hr IVPB Q24HR [facility] Rx#:[id number] Oral 0 540 180 Output: Urine 1400 1750 400 Other: Voiding Method Urinal Urinal Urinal # Voids 2 # Bowel Movements 2 - Exam patient is awake, comfortable, no acute distress. Alert oriented 3. Examination of the heart S1 and S2 Examination of the lungs bilateral breath sounds are heard Abdomen is soft nontender Examination of lower extremities shows trace edema [employer]ICER exam grossly intact - Labs CBC & Chem 7: 12/29/23 09:35 12/29/23 09:35 Labs: Abnormal Lab Results - Last 24 Hours (Table) 12/28/23 12/28/23 12/29/23 Range/Units 17:09 20:17 05:24 RBC (4.30-5.90) m/uL Hgb (13.0-17.5) gm/dL Hct (39.0-53.0) % Lymphocytes # (1.0-4.8) k/uL BUN (9-20) mg/dL Creatinine (0.66-1.25) mg/dL Glucose (74-99) mg/dL POC Glucose (mg/dL) 167 H 285 H 252 H (70-110) mg/dL Total Protein (6.3-8.2) g/dL Albumin (3.5-5.0) g/dL 12/29/23 12/29/23 12/29/23 Range/Units 09:35 09:35 11:24 RBC 3.35 L (4.30-5.90) m/uL Hgb 10.8 L (13.0-17.5) gm/dL Hct 32.2 L (39.0-53.0) % Lymphocytes # 0.7 L (1.0-4.8) k/uL BUN 25 H (9-20) mg/dL Creatinine 1.52 H (0.66-1.25) mg/dL Glucose 235 H (74-99) mg/dL POC Glucose (mg/dL) 280 H (70-110) mg/dL Total Protein 5.5 L (6.3-8.2) g/dL Albumin 3.4 L (3.5-5.0) g/dL Microbiology - Last 24 Hours (Table) 12/24/23 17:40 Blood Culture - Preliminary Blood 12/24/23 17:20 Blood Culture - Preliminary Blood Assessment and Plan Assessment: 1. Acute kidney injury, ATN secondary to hypotension, cardiorenal syndrome and recent diuresis. UA is benign. status post IV fluids 2. A. fib with RVR currently with controlled ventricular response and maintained on IV heparin. 3. Cardiomyopathy with EF of 25-30% 4. Acute non-ST elevation SC. 5. Type 2 diabetes 6. Volume overload Plan: continue off of IV fluids continue to avoid nephrotoxic agents. Repeat labs in a.m.
[2023-12-29 13:30] LABS: Basophils % (A) 1 %; Eosinophils # (A) 0.3 k/uL (0-0.7); Eosinophils % (A) 5 %; HCT 34.6 % (39.0-53.0); HGB 11.4 gm/dL (13.0-17.5); Lymphocytes # (A) 0.8 k/uL (1.0-4.8); Lymphocytes % (A) 16 %; MCH 32.2 pg (25.0-35.0); MCV 97.7 fL (80.0-100.0); Mean Platelet Volume 8.2; Monocytes # (A) 0.3 k/uL (0-1.0); Monocytes % (A) 6 %; Neutrophils # (A) 3.9 k/uL (1.3-7.7); Neutrophils % (A) 72 %; Platelet Count 203 k/uL (150-450); Poikilocytosis Slight; RBC 3.54 m/uL (4.30-5.90); RDW 13.9 % (11.5-15.5); WBC 5.4 k/uL (3.8-10.6)
[2023-12-29] MEDS: HEPARIN SODIUM 1,000 UN/ML (10ML VL) IV ONE (13:37)
[2023-12-29 13:38] LABS: INR 1.1 (<1.2); Prothrombin Time 11.6 sec (10.0-12.5)
[2023-12-29] MEDS: HEPARIN SOD,PORK IN 0.45% NACL 25,000 UNIT in 0.45% NACL 1 250ML.BAG IV SCH (13:38)
--- NOTE | 2023-12-29 15:03 | P.GSCN ---
History of Present Illness Consult date: 12/29/23 Reason for Consult: Multivessel coronary artery disease, non-ST elevated myocardial infarction this admission, moderate to severe mitral valve regurgitation. Requesting physician: Umair Amaro) History of present illness: This is an 78-year-old gentleman who follows on an outpatient basis with Dr. Ton Nash for his primary care. He has a past medical history significant for hypertension, diabetes mellitus type 2, obesity with a BMI of 32.7 kg/m, prostate cancer status post 45 radiation treatments several years ago, frequent diarrhea and inability to hold his bowel movements controlled with Imodium on an outpatient basis, hard of hearing, and remote history of nicotine dependence in which she quit smoking 45 years ago. The patient presented to the emergency department here at [facility] on December 24, 2023 with complaints of chest heaviness, shortness of breath and becoming diaphoretic. He denies any recent fever, chills, nausea, vomiting, headache, constipation, hemoptysis, hoang temesis, presyncope, syncope or palpitations. The patient states he had similar symptoms around 2 weeks ago while golfing and became short of breath and over the past 2-weeks he has had difficulty walking around 60 feet without having to take a rest. The patient's initial twelve-lead EKG in the emergency department showed atrial fibrillation with rapid ventricular response with a heart rate of 150 bpm. Initial laboratory results showed a WBC count of 8.8, hemoglobin 12.8, hematocrit 39.1, platelets 200, sodium 136, potassium 4.9, chloride 109, CO2 19, BUN 21, creatinine 1.18, glucose 258, calcium 8.9, magnesium 1.6, proBNP 6030, and elevated serial troponins as high as 0.547. Subsequently due to the patient presenting symptoms and elevated troponins a consult was placed to cardiology a nd a transthoracic 2D echocardiogram was completed on December 25, 2023 which showed a left ventricular ejection fraction estimated at 25 to 30%, moderate to severe mitral valve regurgitation, trace tricuspid valve regurgitation, trace pulmonic valve regurgitation, and a normal size aortic root and proximal ascending aorta. On December 25, 2023 the patient's creatinine started trending up and went as high as 1.98 and was subsequently seen by nephrology. On December 28, 2023 the patient underwent a transesophageal echocardiogram which demonstrated moderately reduced global LV systolic function, severe mitral valve regurgitation, likely secondary to 2 a restricted motion of the posterior mitral leaflet, moderate tricuspid valve regurgitation, no evidence of thrombus in the left atrial appendage, and severe left atrial dilatation. The patient was also recommended to undergo a cardiac catheterization which was completed yesterday December 28, 2023 which revealed triple-vessel coronary artery disease with an 80% stenosis to his mid left anterior descending coronary artery, a 90% stenosis to his mid obtuse marginal #2 coronary artery, and moderate disease to his posterior descending coronary artery. It also revealed severe mitral valve regurgitation. Subsequently due to the patient's presenting symptoms, findings on his transthoracic 2D echocardiogram, the transesophageal echocardiogram, and his ca rdiac catheterization a consult was placed to cardiothoracic surgery for further evaluation and treatment recommendations. Review of Systems A review of systems was completed and was negative except as mentioned in the HPI. Past Medical History Past Medical History: Cancer, Chest Pain / Angina, Diabetes Mellitus (Poorly controlled), Hypertension, Prostate Disorder Additional Past Medical History / Comment(s): prostate cancer History of Any Multi-Drug Resistant Organisms: None Reported Past Surgical History: Appendectomy, Orthopedic Surgery Additional Past Surgical History / Comment(s): Right hip replacement, bilateral cataract Past Anesthesia/Blood Transfusion Reactions: No Reported Reaction Past Psychological History: No Psychological Hx Reported Smoking Status: Former smoker (Quit smoking 45 years ago) Past Alcohol Use History: None Reported Past Drug Use History: None Reported - Past Family History Father Family Medical History: Coronary Artery Disease (CAD) Additional Family Medical History / Comment(s): from an aneurysm Mother Family Medical History: Cancer Medications and Allergies Home Medications Medication Instructions Recorded Confirmed Type lisinopriL [Zestril] 10 mg PO DAILY 03/18/23 12/24/23 History metFORMIN HCL 1,000 mg PO BID 03/18/23 12/24/23 History Timolol 0.5% Ophth Soln [Timoptic 1 drop BOTH EYES BID 12/24/23 12/24/23 History 0.5% Ophth Soln] glipiZIDE XL [Glucotrol Xl] 10 mg PO DAILY 12/24/23 12/24/23 History Allergies Allergy/AdvReac Type Severity Reaction Status Date / Time Penicillins Allergy Unknown Verified 03/24/23 05:58 Childhood Surgical - Exam Vital Signs Temp Pulse Resp BP Pulse Ox 98.4 F 118 H 18 146/86 98 12/24/23 13:58 12/24/23 13:58 12/24/23 13:58 12/24/23 13:58 12/24/23 13:58 - General well developed, well nourished, no distress, no pain, obese - Eyes PERRL, normal ocular movement, no pale, no icteric - ENT normal pinna, normal nares, normal mucosa, decreased hearing - Neck Neck is supple, no lymphadenopathy. no masses, no bruits, trachea midline, no venous distension - Respiratory Respirations are symmetrical and nonlabored, no wheezes, rhonchi or crackles. Respirations are symmetrical and nonlabored. Oxygen saturations are 94% on room air. - Cardiovascular Regular rhythm and rate. S1 and S2 present, negative for S3, gallop or murmur. Remote telemetry is showing atrial fibrillation heart rate 95 bpm. - Abdomen Abdomen is soft, nontender nondistended. Active bowel sounds present all 4 abdominal quadrants. No guarding rigidity. No organomegaly appreciated. Obese. - Genitourinary Deferred - Rectum Deferred - Integumentary Skin is warm and dry. No clubbing or cyanosis is present. no rash, no growths, no abnormal pigmentation - Neurologic No focal deficits. - Musculoskeletal Moves all 4 extremities with equal strength bilateral. - Psychiatric oriented to time, oriented to person, oriented to place, speech is normal, memory intact Results - Labs 12/30/23 02:46 12/29/23 09:35 Abnormal Lab Results - Last 24 Hours (Table) 12/28/23 12/28/23 12/28/23 Range/Units 07:49 11:57 17:09 Chloride 111 H (98-107) mmol/L Carbon Dioxide 18 L (22-30) mmol/L BUN 28 H (9-20) mg/dL Creatinine 1.62 H (0.66-1.25) mg/dL Glucose 205 H (74-99) mg/dL POC Glucose (mg/dL) 221 H 167 H (70-110) mg/dL 12/28/23 12/29/23 Range/Units 20:17 05:24 Chloride (98-107) mmol/L Carbon Dioxide (22-30) mmol/L BUN (9-20) mg/dL Creatinine (0.66-1.25) mg/dL Glucose (74-99) mg/dL POC Glucose (mg/dL) 285 H 252 H (70-110) mg/dL Microbiology - Last 24 Hours (Table) 12/24/23 17:40 Blood Culture - Preliminary Blood 12/24/23 17:20 Blood Culture - Preliminary Blood Diabetes panel 12/28/23 Range/Units 07:49 Sodium 140 (137-145) mmol/L Potassium 4.5 (3.5-5.1) mmol/L Chloride 111 H (98-107) mmol/L Carbon Dioxide 18 L (22-30) mmol/L BUN 28 H (9-20) mg/dL Creatinine 1.62 H (0.66-1.25) mg/dL Glucose 205 H (74-99) mg/dL Calcium 9.7 (8.4-10.2) mg/dL Calcium panel 12/28/23 Range/Units 07:49 Calcium 9.7 (8.4-10.2) mg/dL Pituitary panel 12/28/23 Range/Units 07:49 Sodium 140 (137-145) mmol/L Potassium 4.5 (3.5-5.1) mmol/L Chloride 111 H (98-107) mmol/L Carbon Dioxide 18 L (22-30) mmol/L BUN 28 H (9-20) mg/dL Creatinine 1.62 H (0.66-1.25) mg/dL Glucose 205 H (74-99) mg/dL Calcium 9.7 (8.4-10.2) mg/dL Adrenal panel 12/28/23 Range/Units 07:49 Sodium 140 (137-145) mmol/L Potassium 4.5 (3.5-5.1) mmol/L Chloride 111 H (98-107) mmol/L Carbon Dioxide 18 L (22-30) mmol/L BUN 28 H (9-20) mg/dL Creatinine 1.62 H (0.66-1.25) mg/dL Glucose 205 H (74-99) mg/dL Calcium 9.7 (8.4-10.2) mg/dL - Imaging Chest x-ray: report reviewed, image reviewed EKG: image reviewed Assessment and Plan Assessment: Multivessel coronary artery disease Non-ST elevated myocardial infarction this admission New onset paroxysmal atrial fibrillation with RVR Acute systolic heart failure with reduced ejection fraction, 25 to 30% New onset cardiomyopathy, ischemic versus nonischemic Severe mitral valve regurgitation on transesophageal echocardiogram Acute kidney injury Hypertension Poorly controlled diabetes mellitus type 2 with a hemoglobin A1c of 9.3% Hard of hearing History of prostate cancer status post 45 radiation treatments Frequent diarrhea Obstructive sleep apnea, noncompliant with CPAP use Remote history of nicotine dependence, quit smoking 45 years ago Osteoarthritis Plan: The patient was seen and examined at his bedside on the third floor cardiac stepdown unit with the patient's present at his bedside. His chart and diagnostics were reviewed. His case was discussed in detail with Dr. Cody Spaulding from cardiothoracic surgery. Preoperative testing and preoperative teaching has been initiated. A clinical frailty score was calculated, with his clinical frailty score equaling 4 which shows fit/mild frailty. A 5 m walk test was completed with the patient by boss dyer, patient tolerated well with time 1: 5.17 seconds, time 2: 5.08 seconds, and time 3: 5.05 seconds. Continue to maximize medical management with aspirin, statin and beta-charlette. Once the patient's preoperative testing has been completed we will calculate a risk stratification score which will be discussed with the patient. More recommendations to follow as the patient's preoperative testing has been colle cted and evaluated. Thank you Dr. Pelletier for this consult and we look forward to following with you in the care of this patient. I have personally seen and examined the patient, performed the documentation and the assessment and plan as written. Number of minutes spent on the visit: 30. ELI Narayan Attending Addendum: Pt seen and evaluated with the TEMPERING KILN TENDER above. Agree with his assessment and plan. This is an 78 year-old fairly active M who presents with CHF. 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 In addition he does have severe ischemic MR. Given the fact that his LAD is not a great target for bypass, we recommend PCI with medical management. If his MR does not improve down the road, he can be a candidate for apollo vs mitraclip. I spent 45 minutes reviewing the data and discussing the plan of care with the team. Time with Patient: Greater than 30
[2023-12-29 16:29] LABS: Glucose,Whole Blood 274 mg/dL (70-110)
[2023-12-29 17:34] LABS: % Iron Saturation 17.69 (12.00-50.00); Iron 46 UG/DL (50-175); Total Iron Binding Capacity 260 UG/DL (228-460)
[2023-12-29 17:53] LABS: Hepatitis A Antibody IgM Nonreactive (Nonreactive); Hepatitis B Surface Antigen Nonreactive (Nonreactive); Hepatitis C IgG Antibody Nonreactive (Nonreactive)
[2023-12-29 18:55] LABS: Hepatitis B Core IgM Nonreactive (Nonreactive)
[2023-12-29 20:06] LABS: Glucose,Whole Blood 322 mg/dL (70-110)
[2023-12-29] MEDS: HEPARIN SODIUM 1,000 UN/ML (10ML VL) IV PRN (20:09)
[2023-12-29] MEDS: MUPIROCIN 2% OINT 22 GM TUBE NASAL SCH (20:09)
[2023-12-30 04:05] LABS: INR 1.1 (<1.2); Prothrombin Time 12.3 sec (10.0-12.5)
[2023-12-30 04:48] LABS: Basophils % (A) 0 %; Eosinophils # (A) 0.3 k/uL (0-0.7); Eosinophils % (A) 5 %; HCT 33.1 % (39.0-53.0); Lymphocytes # (A) 1.4 k/uL (1.0-4.8); Lymphocytes % (A) 26 %; MCH 32.3 pg (25.0-35.0); MCHC 33.1 g/dL (31.0-37.0); MCV 97.5 fL (80.0-100.0); Monocytes # (A) 0.3 k/uL (0-1.0); Monocytes % (A) 6 %; Neutrophils # (A) 3.3 k/uL (1.3-7.7); Neutrophils % (A) 61 %; Platelet Count 195 k/uL (150-450); Poikilocytosis Slight; RBC 3.39 m/uL (4.30-5.90); WBC 5.4 k/uL (3.8-10.6)
--- NOTE | 2023-12-30 05:54 | P.PN ---
Subjective Progress Note Date: 12/29/23 Patient is a pleasant 78 years old male with past medical history of multiple medical problems including hypertension and diabetes Presents with respiratory distress the last 2 to 3 days duration and chest tightness. On admission patient was found to be in fluid overload with chest x-ray showing cardiomegaly with pulmonary vascular congestion, proBNP is elevated 5710. Patient also was mildly tachypneic and hypoxic, was placed on oxygen and he feels better On admission his blood pressure was up but now on the low side 94/64 however patient is asymptomatic heart rate count went down from 140s-150s down to 92 He is afebrile He is mildly tachypneic requiring BiPAP but now he is off BiPAP on nasal cannula Hemoglobin 12, creatinine slightly up at 1.5 with baseline 1.1 Glucose elevated at home he was on metformin 1000 twice daily, glipizide 10 mg 12/26/2023 Patient awake alert at baseline His breathing improved since admission and currently he is on 2 L oxygen with good oxygen saturation and mild tachypnea He denies chest pain He still has tachycardia around 115 rest of vitals look stable Creatinine went up 1.8 compared to baseline of 1.0-1.1 Glucose better controlled He still has a mild leukocytosis Echocardiogram showed ejection fraction of 25 to 30% with severe global hypokinesia and moderate to severe mitral regurgitation Patient creatinine increased 1.8 we will going to hold his IV Lasix. Check urine analysis and bladder scan. And keep monitoring if further worsening may consider nephrology consult. Yesterday he made more than 1.5 L of urine output. Labs reviewed, CBC looks the same. Creatinine up as above. 12/27/23 Patient had a good sleep last night No chest pain Breathing is better He is using BiPAP overnight Still on heparin drip He is getting IV fluid with sodium bicarb at 60 mL/h with the plan of IV fluid per case hardener Metoprolol increased to 3 times per day, he still mildly tachycardic. Blood pressure is a stable. Patient also on metoprolol 400 mg Continue with ceftriaxone x 5 days 12/28/2023 Patient is seen in follow-up today with multiple consultations following including cardiology and nephrology. Patient currently maintained on 2 to 3 L via nasal cannula reporting continued shortness of breath with minimal exertion. Patient to continue telemetry monitoring as well as continued IV heparin. Patient is scheduled for TIFFANY/cardiac catheterization today with cardiology. Will await report. Patient is afebrile with no reports of chest pains. Patient reports that his atrial fibrillation is new. Family at the bedside with multiple questions and concerns that were answered. Currently awaiting follow- up labs to monitor kidney functions closely. Creatinine 1.6 today. 12/29/2023 Patient is seen today in follow-up status post TIFFANY with cardio and cardiac catheterization revealing severe triple-vessel disease recommending CT surgery evaluation for possible surgical intervention. Patient undergoing extensive workup for possible CABG and further discussing with cardiology and CT surgery regarding all options. Surgical testing in process and CT surgery will follow- up with the patient once completed to discuss risk factors and treatment plan. Patient is currently afebrile with no reports of chest pain or palpitations. Patient reports feeling slightly improved and is currently on room air. Patient reports has been up and walking the halls has some mild shortness of breath although much improved from previous Review of systems: Constitutional: No reports of fatigue, fever, or chills Cardiovascular: No reports of chest pain or palpitations Respiratory: reports of shortness of breath with minimal exertion that is improving GI: No reports of nausea, vomiting, or diarrhea : No reports of dysuria or retention Neurovascular: No reports of weakness or numbness All medications have been reviewed physical exam: GENERAL: The patient is alert and oriented x3, not in any acute distress. Well developed, well nourished. Elderly appearing, obese HEENT: Pupils are round and equally reacting to light. EOMI. No scleral icterus. No conjunctival pallor. Normocephalic, atraumatic. No pharyngeal erythema. No thyromegaly. CARDIOVASCULAR: S1 and S2 muffled, irregular PULMONARY: Diminished breath sounds bilaterally otherwise chest is clear to auscultation, no wheezing , no crackles. ABDOMEN: Soft, obese, nontender, nondistended, normoactive bowel sounds. No palpable organomegaly. MUSCULOSKELETAL: No joint swelling or deformity. EXTREMITIES: No cyanosis, clubbing, or pedal edema. NEUROLOGICAL: Gross neurological examination did not reveal any focal deficits. SKIN: No rashes. no petechiae. Assessment: A-fib and RVR, new onset present on admission Acute on chronic CHF, ejection fraction 25 to 30% Status post cardiac catheterization revealing triple-vessel disease with cardiomyopathy ischemic Acute kidney injury on CKD stage III Acute hypoxic respiratory failure secondary to above. Improving Chronic anemia Diabetes mellitus type II, uncontrolled with hyperglycemia Hypertension Obesity with BMI of 36.1 GI prophylaxis DVT prophylaxis Full code Plan: Continue with heparin drip, amiodarone and metoprolol per airplane dispatcher, patient underwent TIFFANY with cardiac catheterization with Dr. Pelletier revealing triple-vessel disease and CT surgery was consulted undergoing workup for possible surgical intervention including CABG Will continue with IV diuretics per the discretion of cardiology and nephrology as kidney functions are elevated although stable. Creatinine is 1.5 today. Will follow-up on repeat labs. Continue monitoring Accu-Cheks before meals and at bedtime and will continue with sliding scale. Continue holding metformin and glipizide at this time Patient undergoing further surgical testing to assess for risk versus benefits of proceeding with surgery or other options being explored. CT surgery to discuss further with patient and family once testing has been completed Due to multiple complex medical issues, prognosis is guarded The impression and plan of care has been dictated by Fide Pool, Nurse Practitioner as directed. Dr. Sarah MD I have performed a history and examination and MDM of this patient, discussed the same with the dictator, and agree with the dictator's assessment and plan as written ,documented as a scribe. Based on total visit time, I have performed more than 50% of the visit. Objective - Vital Signs Vital signs: Vital Signs Temp 98 F 12/29/23 03:14 Pulse 104 H 12/29/23 03:14 Resp 17 12/29/23 03:14 BP 108/70 12/29/23 03:14 Pulse Ox 93 L 12/29/23 03:14 FiO2 35 12/29/23 00:41 Intake & Output 12/28/23 12/28/23 12/29/23 06:59 18:59 06:59 Intake Total 310 227.467 550 Output Total 675 1400 1750 Balance -365 -1172.533 -1200 Weight 99.8 kg 99.8 kg 97.5 kg Intake: IV 20 10 Invasive Line 2 20 Invasive Line 3 10 Intake, IV Titration 250 227.467 Amount Heparin Sod,Pork in 0.45% 250 177.467 NaCl 25,000 unit In 0.45 % NaCl 1 250ml.bag @ 9. 186 UNITS/KG/HR 10 mls/hr IV .Q24H [facility] Rx#: [id number] cefTRIAXone 2 gm In 50 Sodium Chloride 0.9% 50 ml @ 100 mls/hr IVPB Q24HR J[facility]LEN Rx#:[id number] Oral 40 0 540 Output: Urine 675 1400 1750 Other: Voiding Method Urinal Urinal Urinal # Voids 2 # Bowel Movements 2 - Labs CBC & Chem 7: 12/30/23 02:46 12/29/23 09:35 Labs: Abnormal Lab Results - Last 24 Hours (Table) 12/28/23 12/28/23 12/28/23 Range/Units 06:33 07:49 07:49 RBC (4.30-5.90) m/uL Hgb (13.0-17.5) gm/dL Hct (39.0-53.0) % APTT 73.8 H (22.0-30.0) sec Chloride 111 H (98-107) mmol/L Carbon Dioxide 18 L (22-30) mmol/L BUN 28 H (9-20) mg/dL Creatinine 1.62 H (0.66-1.25) mg/dL Glucose 205 H (74-99) mg/dL POC Glucose (mg/dL) 204 H (70-110) mg/dL 12/28/23 12/28/23 12/28/23 Range/Units 07:49 11:57 17:09 RBC 3.65 L (4.30-5.90) m/uL Hgb 12.3 L (13.0-17.5) gm/dL Hct 35.1 L (39.0-53.0) % APTT (22.0-30.0) sec Chloride (98-107) mmol/L Carbon Dioxide (22-30) mmol/L BUN (9-20) mg/dL Creatinine (0.66-1.25) mg/dL Glucose (74-99) mg/dL POC Glucose (mg/dL) 221 H 167 H (70-110) mg/dL 12/28/23 12/29/23 Range/Units 20:17 05:24 RBC (4.30-5.90) m/uL Hgb (13.0-17.5) gm/dL Hct (39.0-53.0) % APTT (22.0-30.0) sec Chloride (98-107) mmol/L Carbon Dioxide (22-30) mmol/L BUN (9-20) mg/dL Creatinine (0.66-1.25) mg/dL Glucose (74-99) mg/dL POC Glucose (mg/dL) 285 H 252 H (70-110) mg/dL Microbiology - Last 24 Hours (Table) 12/24/23 17:40 Blood Culture - Preliminary Blood 12/24/23 17:20 Blood Culture - Preliminary Blood
[2023-12-30 06:03] LABS: Glucose,Whole Blood 248 mg/dL (70-110)
[2023-12-30 11:20] LABS: Glucose,Whole Blood 311 mg/dL (70-110)
[2023-12-30 11:30] LABS: African American GFR (CKD) 48 (>60 ml/min/1.73 sqM); Anion Gap 9 mmol/L; Blood Urea Nitrogen 24 mg/dL (9-20); Calcium 8.7 mg/dL (8.4-10.2); Carbon Dioxide 22 mmol/L (22-30); Chloride 105 mmol/L (98-107); Glucose 299 mg/dL (74-99); Non-African American GFR(CKD) 42 (>60 ml/min/1.73 sqM); Potassium 4.3 mmol/L (3.5-5.1); Sodium 136 mmol/L (137-145)
[2023-12-30] MEDS: INSULIN DETEMIR (LEVEMIR) 100 UNIT/ML SYR SQ SCH (12:29)
--- NOTE | 2023-12-30 12:34 | P.PN ---
Subjective HISTORY OF PRESENT ILLNESS: This is an 78-year-old male with past medical history of diabetes mellitus type 2, hypertension, prostate cancer status post radiation and surgeries several years ago. We have been asked to evaluate the patient for A-fib with RVR. Patient gives history that he has been having trouble with breathing for the past 1 to 2 weeks that comes and goes. He also has had chest pain across the top of his chest. The chest pain occurs with activity such as after he is golfing. He would then sit down and the pain would go away with rest. He denies orthopnea. Chest pressure seems to happen with exertion but not at rest. He denies history of stroke, kidney problems, lung problems. He has not seen a residential youth counselor in the past and has had no cardiac workup in the past. He has not been admitted to the hospital recently. He states he is having good urine output. No fever or chills. No nausea or vomiting. His initial heart rates were in the 150s, pulse ox 88% requiring BiPAP, blood pressure 137/116. Blood pressure now 94/64, heart rate 92, pulse ox 97% on 4 L nasal cannula. Patient was on BiPAP during the night. Telemetry is atrial fibrillation running between 96 and 122 bpm. Patient was started on heparin drip. He is status post Cardizem bolus 10 mg x 2, Cardizem drip and later started on amiodarone drip. Discussed with patient and multiple family members at the bedside need for cardiac catheterization and patient and family are in agreement. They do understand that patient's renal function will need to be stable before this is done. Most likely, this will occur on Thursday. EKG: #1 atrial fibrillation with IVCD at ventricular rate 150 bpm, #2 atrial fibrillation with ventricular rate of 107 bpm with IVCD Chest x-ray: #1 right middle lobe airspace opacities correlate for developing pneumonia. #2 cardiomegaly with increased interstitial lung markings possibly pulmonary vascular congestion. Medial right lower lung on prior radiograph now represent overlapping pulmonary trunk with pulmonary vascular congestion. Laboratory studies: WBC 8.1, hemoglobin 12.1, sodium 136, potassium 4.5, BUN 24 creatinine 1.56, CO2 19. Blood sugar 275. Troponin 0.334, 0.421, 0.547. proBNP 5710. Influenza A, influenza B, RSV, COVID-19 not detected. Home cardiac medications: Lisinopril 10 mg daily. Progress note 12/26/2023 Patient is seen and examined at bedside this a.m. He denies having any active chest pain chest pressure shortness of breath. He does report feeling much better since the time of admission. 124/65, heart rate 110 bpm, atrial fibrillation echo EF of 25 to 30%, severely reduced global LV systolic function, moderate to severe mitral regurgitation, aortic valve thickening December 27, 2023 BP 105/74, heart rate 95 bpm, afib on telemetry Yesterday morning creatinine increased from 1.54 on admission to 1.8. Repeat creatinine was 1.98. For this we held his diuretics and started him on gentle hydration with 60 cc/h for 12 hours giving him total of 1 L fluid. At this moment he appears euvolemic. His chest x-ray does not show any significant pulmonary congestion at present. It is better as compared to CXR from admission 12/28/2023 Patient examined this morning. Patient is sitting up in the chair. Patient currently denies chest pain or pressure. He reports improvement in his shortness of breath. He remains in atrial fibrillation with controlled ventricular rate. Creatinine today has improved to 1.6. 12/29/2023 Patient is status post cardiac catheterization and TIFFANY with Dr. Pelletier. Cardiac catheterization revealed 80% mid LAD stenosis, 90% mid OM 2 disease, and mode rate diffuse disease in PDA. Patient also underwent TIFFANY revealing severe mitral regurgitation, moderate tricuspid regurgitation, severe left atrial dilatation And no evidence of thrombus. Patient remains in atrial fibrillation with controlled ventricular rate. He currently denies any chest pain or pressure. Denies any shortness of breath. 12/30/2023 Patient examined this morning the bedside. Patient currently denies chest pain or pressure. He denies shortness of breath. Telemetry reveals atrial fibrillation with controlled ventricular rate. He remains on IV heparin. Patient was evaluated by CT surgery yesterday who recommended against bypass surgery and recommended PCI and medical management. Plan for possible [place] versus MitraClip if his MR does not improve down the road. PHYSICAL EXAM: VITAL SIGNS: Reviewed. GENERAL: Well-developed in no acute distress. NECK: Supple. No JVD or thyromegaly LUNGS: Respirations even and unlabored. Lungs essentially clear to auscultation bilaterally. HEART: Irregular rate and rhythm. S1 and S2 heard. EXTREMITIES: Normal range of motion. No clubbing or cyanosis. Peripheral pulses intact. No lower extremity edema ASSESSMENT: Shortness of breath New onset paroxysmal atrial fibrillation with RVR Acute heart failure with reduced EF, 25 to 30% New onset cardiomyopathy, ischemic Status post cardiac catheterization revealing triple-vessel CAD, 80% mid LAD, 90% OM 2, and moderate diffuse disease in PDA Elevated troponins, flat, likely type II NV secondary to oxygen supply and demand mismatch Acute kidney injury Severe mitral regurgitation per TIFFANY Hypertension Diabetes, hemoglobin A1c 9.3 PLAN: Continue current cardiac medications Continue to monitor kidney function. Nephrology following. Continue IV heparin. Patient will need to be eventually transitioned to oral anticoagulation CTS evaluated patient. No plans for CABG. Recommending PCI and medical management. Plan for possible [place] versus MitraClip if his MR does not improve down the road. Dr. Mason to review films for possible PCI tomorrow NPO at midnight Further recommendations pending patient course Nurse practitioner note has been reviewed by physician. Signing provider agrees with the documented findings, assessment, and plan of care documented by RETAIL RESET MERCHANDISER as a scribe. Objective - Vital Signs Vital signs: Vital Signs Temp 98.2 F 12/30/23 08:00 Pulse 91 12/30/23 08:00 Resp 18 12/30/23 08:00 BP 120/77 12/30/23 08:00 Pulse Ox 96 12/30/23 08:00 FiO2 35 12/30/23 04:00 Intake & Output 12/29/23 12/30/23 12/30/23 18:59 06:59 18:59 Intake Total 380 160.596 180 Output Total 400 500 200 Balance -20 -339.404 -20 Weight 98.4 kg Intake: IV 20 Invasive Line 3 20 Intake, IV Titration 160.596 Amount Heparin Sod,Pork in 0.45% 160.596 NaCl 25,000 unit In 0.45 % NaCl 1 250ml.bag @ 10.3 UNITS/KG/HR 10.043 mls/ hr IV .Q24H [facility] Rx#: [id number] Oral 360 180 Output: Urine 400 500 200 Other: Voiding Method Urinal Urinal # Voids 1 1 - Labs CBC & Chem 7: 12/30/23 02:46 12/30/23 10:27 Labs: Abnormal Lab Results - Last 24 Hours (Table) 12/29/23 12/29/23 12/29/23 Range/Units 09:35 12:53 16:28 RBC 3.54 L (4.30-5.90) m/uL Hgb 11.4 L (13.0-17.5) gm/dL Hct 34.6 L (39.0-53.0) % Lymphocytes # 0.8 L (1.0-4.8) k/uL APTT (22.0-30.0) sec Sodium (137-145) mmol/L BUN (9-20) mg/dL Creatinine (0.66-1.25) mg/dL Glucose (74-99) mg/dL POC Glucose (mg/dL) 274 H (70-110) mg/dL Iron 46 L (50-175) UG/DL Transferrin 186.0 L (204.0-354.0) mg/dL Ferritin 380.0 H (10.0-322.0) ng/mL 12/29/23 12/29/23 12/30/23 Range/Units 18:48 20:03 02:46 RBC 3.39 L (4.30-5.90) m/uL Hgb 11.0 L (13.0-17.5) gm/dL Hct 33.1 L (39.0-53.0) % Lymphocytes # (1.0-4.8) k/uL APTT 38.5 H (22.0-30.0) sec Sodium (137-145) mmol/L BUN (9-20) mg/dL Creatinine (0.66-1.25) mg/dL Glucose (74-99) mg/dL POC Glucose (mg/dL) 322 H (70-110) mg/dL Iron (50-175) UG/DL Transferrin (204.0-354.0) mg/dL Ferritin (10.0-322.0) ng/mL 12/30/23 12/30/23 12/30/23 Range/Units 02:46 06:01 10:27 RBC (4.30-5.90) m/uL Hgb (13.0-17.5) gm/dL Hct (39.0-53.0) % Lymphocytes # (1.0-4.8) k/uL APTT 130.0 H* 65.4 H (22.0-30.0) sec Sodium (137-145) mmol/L BUN (9-20) mg/dL Creatinine (0.66-1.25) mg/dL Glucose (74-99) mg/dL POC Glucose (mg/dL) 248 H (70-110) mg/dL Iron (50-175) UG/DL Transferrin (204.0-354.0) mg/dL Ferritin (10.0-322.0) ng/mL 12/30/23 12/30/23 Range/Units 10:27 11:19 RBC (4.30-5.90) m/uL Hgb (13.0-17.5) gm/dL Hct (39.0-53.0) % Lymphocytes # (1.0-4.8) k/uL APTT (22.0-30.0) sec Sodium 136 L (137-145) mmol/L BUN 24 H (9-20) mg/dL Creatinine 1.55 H (0.66-1.25) mg/dL Glucose 299 H (74-99) mg/dL POC Glucose (mg/dL) 311 H (70-110) mg/dL Iron (50-175) UG/DL Transferrin (204.0-354.0) mg/dL Ferritin (10.0-322.0) ng/mL
--- NOTE | 2023-12-30 13:06 | P.PN ---
Subjective patient is seen for follow-up for acute kidney injury. status post cardiac catheterization and cardiothoracic surgery has been consult it. Serum creatinine decreased to 1.5. No significant complaints today. Objective - Vital Signs Vital signs: Vital Signs Temp 98.2 F 12/30/23 08:00 Pulse 91 12/30/23 13:01 Resp 18 12/30/23 13:01 BP 120/77 12/30/23 08:00 Pulse Ox 96 12/30/23 08:00 FiO2 35 12/30/23 04:00 Intake & Output 12/29/23 12/30/23 12/30/23 18:59 06:59 18:59 Intake Total 380 160.596 360 Output Total 400 500 200 Balance -20 -339.404 160 Weight 98.4 kg Intake: IV 20 Invasive Line 3 20 Intake, IV Titration 160.596 Amount Heparin Sod,Pork in 0.45% 160.596 NaCl 25,000 unit In 0.45 % NaCl 1 250ml.bag @ 10.3 UNITS/KG/HR 10.043 mls/ hr IV .Q24H [facility] Rx#: [id number] Oral 360 360 Output: Urine 400 500 200 Other: Voiding Method Urinal Urinal # Voids 1 1 - Exam patient is awake, comfortable, no acute distress. Alert oriented 3. Examination of the heart S1 and S2 Examination of the lungs bilateral breath sounds are heard Abdomen is soft nontender Examination of lower extremities shows trace edema SOIL FERTILITY SPECIALIST exam grossly intact - Labs CBC & Chem 7: 12/30/23 02:46 12/30/23 10:27 Labs: Abnormal Lab Results - Last 24 Hours (Table) 12/29/23 12/29/23 12/29/23 Range/Units 09:35 12:53 16:28 RBC 3.54 L (4.30-5.90) m/uL Hgb 11.4 L (13.0-17.5) gm/dL Hct 34.6 L (39.0-53.0) % Lymphocytes # 0.8 L (1.0-4.8) k/uL APTT (22.0-30.0) sec Sodium (137-145) mmol/L BUN (9-20) mg/dL Creatinine (0.66-1.25) mg/dL Glucose (74-99) mg/dL POC Glucose (mg/dL) 274 H (70-110) mg/dL Iron 46 L (50-175) UG/DL Transferrin 186.0 L (204.0-354.0) mg/dL Ferritin 380.0 H (10.0-322.0) ng/mL 12/29/23 12/29/23 12/30/23 Range/Units 18:48 20:03 02:46 RBC 3.39 L (4.30-5.90) m/uL Hgb 11.0 L (13.0-17.5) gm/dL Hct 33.1 L (39.0-53.0) % Lymphocytes # (1.0-4.8) k/uL APTT 38.5 H (22.0-30.0) sec Sodium (137-145) mmol/L BUN (9-20) mg/dL Creatinine (0.66-1.25) mg/dL Glucose (74-99) mg/dL POC Glucose (mg/dL) 322 H (70-110) mg/dL Iron (50-175) UG/DL Transferrin (204.0-354.0) mg/dL Ferritin (10.0-322.0) ng/mL 12/30/23 12/30/23 12/30/23 Range/Units 02:46 06:01 10:27 RBC (4.30-5.90) m/uL Hgb (13.0-17.5) gm/dL Hct (39.0-53.0) % Lymphocytes # (1.0-4.8) k/uL APTT 130.0 H* 65.4 H (22.0-30.0) sec Sodium (137-145) mmol/L BUN (9-20) mg/dL Creatinine (0.66-1.25) mg/dL Glucose (74-99) mg/dL POC Glucose (mg/dL) 248 H (70-110) mg/dL Iron (50-175) UG/DL Transferrin (204.0-354.0) mg/dL Ferritin (10.0-322.0) ng/mL 12/30/23 12/30/23 Range/Units 10:27 11:19 RBC (4.30-5.90) m/uL Hgb (13.0-17.5) gm/dL Hct (39.0-53.0) % Lymphocytes # (1.0-4.8) k/uL APTT (22.0-30.0) sec Sodium 136 L (137-145) mmol/L BUN 24 H (9-20) mg/dL Creatinine 1.55 H (0.66-1.25) mg/dL Glucose 299 H (74-99) mg/dL POC Glucose (mg/dL) 311 H (70-110) mg/dL Iron (50-175) UG/DL Transferrin (204.0-354.0) mg/dL Ferritin (10.0-322.0) ng/mL Microbiology - Last 24 Hours (Table) 12/24/23 17:40 Blood Culture - Final Blood 12/24/23 17:20 Blood Culture - Final Blood Assessment and Plan Assessment: 1. Acute kidney injury, ATN secondary to hypotension, cardiorenal syndrome and recent diuresis. UA is benign. status post IV fluids 2. A. fib with RVR currently with controlled ventricular response and maintained on IV heparin. 3. Cardiomyopathy with EF of 25-30% 4. Acute non-ST elevation [place]. 5. Type 2 diabetes 6. Volume overload Plan: continue off of IV fluids continue to avoid nephrotoxic agents. resume low-dose diuretics upon discharge.
[2023-12-30] MEDS: APIXABAN 5 MG TAB PO SCH (15:44)
[2023-12-30] MEDS: SODIUM CHLORIDE 0.9% 1,000 ML IV SCH (15:44)
[2023-12-30 16:13] LABS: Glucose,Whole Blood 310 mg/dL (70-110)
[2023-12-30 19:57] LABS: Glucose,Whole Blood 202 mg/dL (70-110)
--- NOTE | 2023-12-31 05:33 | P.PN ---
Subjective Progress Note Date: 12/30/23 Patient is a pleasant 78 years old male with past medical history of multiple medical problems including hypertension and diabetes Presents with respiratory distress the last 2 to 3 days duration and chest tightness. On admission patient was found to be in fluid overload with chest x-ray showing cardiomegaly with pulmonary vascular congestion, proBNP is elevated 5710. Patient also was mildly tachypneic and hypoxic, was placed on oxygen and he feels better On admission his blood pressure was up but now on the low side 94/64 however patient is asymptomatic heart rate count went down from 140s-150s down to 92 He is afebrile He is mildly tachypneic requiring BiPAP but now he is off BiPAP on nasal cannula Hemoglobin 12, creatinine slightly up at 1.5 with baseline 1.1 Glucose elevated at home he was on metformin 1000 twice daily, glipizide 10 mg 12/26/2023 Patient awake alert at baseline His breathing improved since admission and currently he is on 2 L oxygen with good oxygen saturation and mild tachypnea He denies chest pain He still has tachycardia around 115 rest of vitals look stable Creatinine went up 1.8 compared to baseline of 1.0-1.1 Glucose better controlled He still has a mild leukocytosis Echocardiogram showed ejection fraction of 25 to 30% with severe global hypokinesia and moderate to severe mitral regurgitation Patient creatinine increased 1.8 we will going to hold his IV Lasix. Check urine analysis and bladder scan. And keep monitoring if further worsening may consider nephrology consult. Yesterday he made more than 1.5 L of urine output. Labs reviewed, CBC looks the same. Creatinine up as above. 12/27/23 Patient had a good sleep last night No chest pain Breathing is better He is using BiPAP overnight Still on heparin drip He is getting IV fluid with sodium bicarb at 60 mL/h with the plan of IV fluid per vehicle monitor technician Metoprolol increased to 3 times per day, he still mildly tachycardic. Blood pressure is a stable. Patient also on metoprolol 400 mg Continue with ceftriaxone x 5 days 12/28/2023 Patient is seen in follow-up today with multiple consultations following including cardiology and nephrology. Patient currently maintained on 2 to 3 L via nasal cannula reporting continued shortness of breath with minimal exertion. Patient to continue telemetry monitoring as well as continued IV heparin. Patient is scheduled for TIFFANY/cardiac catheterization today with cardiology. Will await report. Patient is afebrile with no reports of chest pains. Patient reports that his atrial fibrillation is new. Family at the bedside with multiple questions and concerns that were answered. Currently awaiting follow- up labs to monitor kidney functions closely. Creatinine 1.6 today. 12/29/2023 Patient is seen today in follow-up status post TIFFANY with cardio and cardiac catheterization revealing severe triple-vessel disease recommending CT surgery evaluation for possible surgical intervention. Patient undergoing extensive workup for possible CABG and further discussing with cardiology and CT surgery regarding all options. Surgical testing in process and CT surgery will follow- up with the patient once completed to discuss risk factors and treatment plan. Patient is currently afebrile with no reports of chest pain or palpitations. Patient reports feeling slightly improved and is currently on room air. Patient reports has been up and walking the halls has some mild shortness of breath although much improved from previous 12/30/2023 Patient is seen and evaluated in follow-up today awaiting further discussing with CT surgery and cardiology. Cardiology initially discussing PCI stenting on 12/31/2023 will now be planning for outpatient follow-up with CT surgery regarding CABG and valve repair. Cardiology discussing cardioversion in the a.m. Patient is off oxygen although does elicit shortness of breath with exertion. Patient has been tolerating diet with no reported nausea or vomiting. Kidney functions remaining stable at 1.51.6 and nephrology is following. Encouraged to increase activity as tolerated with frequent walking and will d iscuss further with consultations regarding discharge planning Review of systems: Constitutional: No reports of fatigue, fever, or chills Cardiovascular: No reports of chest pain or palpitations Respiratory: reports of shortness of breath with minimal exertion that is improving GI: No reports of nausea, vomiting, or diarrhea : No reports of dysuria or retention Neurovascular: No reports of weakness or numbness All medications have been reviewed physical exam: GENERAL: The patient is alert and oriented x3, not in any acute distress. Well developed, well nourished. Elderly appearing, obese HEENT: Pupils are round and equally reacting to light. EOMI. No scleral icterus. No conjunctival pallor. Normocephalic, atraumatic. No pharyngeal erythema. No thyromegaly. CARDIOVASCULAR: S1 and S2 muffled, irregular PULMONARY: Diminished breath sounds bilaterally otherwise chest is clear to a uscultation, no wheezing , no crackles. ABDOMEN: Soft, obese, nontender, nondistended, normoactive bowel sounds. No palpable organomegaly. MUSCULOSKELETAL: No joint swelling or deformity. EXTREMITIES: No cyanosis, clubbing, or pedal edema. NEUROLOGICAL: Gross neurological examination did not reveal any focal deficits. SKIN: No rashes. no petechiae. Assessment: A-fib and RVR, new onset present on admission, scheduled to undergo cardioversion on 12/31/2023 Acute on chronic CHF, ejection fraction 25 to 30% Status post cardiac catheterization revealing triple-vessel disease with cardiomyopathy ischemic Acute kidney injury on CKD stage III Acute hypoxic respiratory failure secondary to above. Improving Chronic anemia Diabetes mellitus type II, uncontrolled with hyperglycemia Hypertension Obesity with BMI of 36.1 GI prophylaxis DVT prophylaxis Full code Plan: Continue with heparin drip, amiodarone and metoprolol per supervisor steno pool, patient underwent TIFFANY with cardiac catheterization with Dr. Pelletier revealing triple-vessel disease and CT surgery following undergoing workup for possible surgical intervention including CABG. Plan is for outpatient. Cardiology planning cardioversion in the a.m. as they were initially discussing possible PCI stenting. Patient will be n.p.o. at midnight Will continue with IV diuretics per the discretion of cardiology and nephrology as kidney functions are elevated although stable. Creatinine is 1.5 today. Will follow-up on repeat labs. Continue monitoring Accu-Cheks before meals and at bedtime and will continue with sliding scale. Continue holding metformin and glipizide at this time Due to multiple complex medical issues, prognosis is guarded The impression and plan of care has been dictated by Fide Pool, Nurse Practitioner as directed. Dr. Sarah MD I have performed a history and examination and MDM of this patient, discussed the same with the dictator, and agree with the dictator's assessment and plan as written ,documented as a scribe. Based on total visit time, I have performed more than 50% of the visit. Objective - Vital Signs Vital signs: Vital Signs Temp 98.0 F 12/30/23 04:00 Pulse 91 12/30/23 04:00 Resp 17 12/30/23 04:00 BP 116/81 12/30/23 04:00 Pulse Ox 98 12/30/23 04:00 FiO2 35 12/30/23 04:00 Intake & Output 12/29/23 12/29/23 12/30/23 06:59 18:59 06:59 Intake Total 550 380 160.596 Output Total 1750 400 500 Balance -1200 -20 -339.404 Weight 97.5 kg Intake: IV 10 20 Invasive Line 3 10 20 Intake, IV Titration 160.596 Amount Heparin Sod,Pork in 0.45% 160.596 NaCl 25,000 unit In 0.45 % NaCl 1 250ml.bag @ 10.3 UNITS/KG/HR 10.043 mls/ hr IV .Q24H [facility] Rx#: [id number] Oral 540 360 Output: Urine 1750 400 500 Other: Voiding Method Urinal Urinal Urinal # Voids 1 - Labs CBC & Chem 7: 12/30/23 02:46 12/30/23 10:27 Labs: Abnormal Lab Results - Last 24 Hours (Table) 12/29/23 12/29/23 12/29/23 Range/Units 09:35 09:35 11:24 RBC 3.35 L (4.30-5.90) m/uL Hgb 10.8 L (13.0-17.5) gm/dL Hct 32.2 L (39.0-53.0) % Lymphocytes # 0.7 L (1.0-4.8) k/uL APTT (22.0-30.0) sec BUN 25 H (9-20) mg/dL Creatinine 1.52 H (0.66-1.25) mg/dL Glucose 235 H (74-99) mg/dL POC Glucose (mg/dL) 280 H (70-110) mg/dL Iron 46 L (50-175) UG/DL Transferrin 186.0 L (204.0-354.0) mg/dL Ferritin 380.0 H (10.0-322.0) ng/mL Total Protein 5.5 L (6.3-8.2) g/dL Albumin 3.4 L (3.5-5.0) g/dL 12/29/23 12/29/23 12/29/23 Range/Units 12:53 16:28 18:48 RBC 3.54 L (4.30-5.90) m/uL Hgb 11.4 L (13.0-17.5) gm/dL Hct 34.6 L (39.0-53.0) % Lymphocytes # 0.8 L (1.0-4.8) k/uL APTT 38.5 H (22.0-30.0) sec BUN (9-20) mg/dL Creatinine (0.66-1.25) mg/dL Glucose (74-99) mg/dL POC Glucose (mg/dL) 274 H (70-110) mg/dL Iron (50-175) UG/DL Transferrin (204.0-354.0) mg/dL Ferritin (10.0-322.0) ng/mL Total Protein (6.3-8.2) g/dL Albumin (3.5-5.0) g/dL 12/29/23 12/30/23 12/30/23 Range/Units 20:03 02:46 02:46 RBC 3.39 L (4.30-5.90) m/uL Hgb 11.0 L (13.0-17.5) gm/dL Hct 33.1 L (39.0-53.0) % Lymphocytes # (1.0-4.8) k/uL APTT 130.0 H* (22.0-30.0) sec BUN (9-20) mg/dL Creatinine (0.66-1.25) mg/dL Glucose (74-99) mg/dL POC Glucose (mg/dL) 322 H (70-110) mg/dL Iron (50-175) UG/DL Transferrin (204.0-354.0) mg/dL Ferritin (10.0-322.0) ng/mL Total Protein (6.3-8.2) g/dL Albumin (3.5-5.0) g/dL
[2023-12-31 06:03] LABS: Glucose,Whole Blood 191 mg/dL (70-110)
[2023-12-31] MEDS: IV FLUID CONTINUATION 1,000 ML IV ONE (07:35)
[2023-12-31] MEDS ORDERED: PROPOFOL 10 MG/ML 20 ML VIAL IV ONE (07:56)
[2023-12-31 11:40] LABS: African American GFR (CKD) 47 (>60 ml/min/1.73 sqM); Anion Gap 8 mmol/L; Blood Urea Nitrogen 22 mg/dL (9-20); Calcium 8.8 mg/dL (8.4-10.2); Carbon Dioxide 22 mmol/L (22-30); Chloride 104 mmol/L (98-107); Glucose 308 mg/dL (74-99); Non-African American GFR(CKD) 41 (>60 ml/min/1.73 sqM); Potassium 5.6 mmol/L (3.5-5.1); Sodium 134 mmol/L (137-145)
[2023-12-31 11:51] LABS: Glucose,Whole Blood 340 mg/dL (70-110)
[2023-12-31 11:58] VITALS: BMI 23.6
[2023-12-31] MEDS: DAPAGLIFLOZIN PROPANEDIOL 10 MG TABLET PO SCH (12:01)
[2023-12-31] MEDS: LOSARTAN 25 MG TAB PO SCH (12:01)
--- NOTE | 2023-12-31 12:28 | P.PN ---
Subjective patient is seen for follow-up for acute kidney injury. status post cardiac catheterization and cardiothoracic surgery has been consulted. no plans for surgery at this time. Serum creatinine decreased to 1.5. status post cardioversionThis morning. No significant complaints today. Objective - Vital Signs Vital signs: Vital Signs Temp 97.9 F 12/31/23 09:29 Pulse 51 L 12/31/23 11:14 Resp 16 12/31/23 11:14 BP 134/77 12/31/23 11:14 Pulse Ox 93 L 12/31/23 11:14 FiO2 35 12/31/23 03:40 Intake & Output 12/30/23 12/31/23 12/31/23 18:59 06:59 18:59 Intake Total 360 40 340 Output Total 200 640 300 Balance 160 -600 40 Weight 70.5 kg 70.5 kg Intake: IV 100 Oral 360 40 240 Output: Urine 200 640 300 Other: Voiding Method Urinal Urinal # Voids 1 1 - Exam patient is awake, comfortable, no acute distress. Alert oriented 3. 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 APPRENTICE exam grossly intact - Labs CBC & Chem 7: 12/30/23 02:46 12/31/23 10:27 Labs: Abnormal Lab Results - Last 24 Hours (Table) 12/30/23 12/30/23 12/31/23 Range/Units 16:11 19:55 05:57 Sodium (137-145) mmol/L Potassium (3.5-5.1) mmol/L BUN (9-20) mg/dL Creatinine (0.66-1.25) mg/dL Glucose (74-99) mg/dL POC Glucose (mg/dL) 310 H 202 H 191 H (70-110) mg/dL 12/31/23 12/31/23 Range/Units 10:27 11:50 Sodium 134 L (137-145) mmol/L Potassium 5.6 H (3.5-5.1) mmol/L BUN 22 H (9-20) mg/dL Creatinine 1.58 H (0.66-1.25) mg/dL Glucose 308 H (74-99) mg/dL POC Glucose (mg/dL) 340 H (70-110) mg/dL Microbiology - Last 24 Hours (Table) 12/29/23 08:20 Nasal Screen MRSA/MSSA - Final Nasopharyngeal Swab 12/24/23 17:40 Blood Culture - Final Blood 12/24/23 17:20 Blood Culture - Final Blood Assessment and Plan Assessment: 1. Acute kidney injury, ATN secondary to hypotension, cardiorenal syndrome and recent diuresis. UA is benign. status post IV fluids 2. A. fib with RVR currently with controlled ventricular response and ma intained on IV heparin. 3. Cardiomyopathy with EF of 25-30% 4. Acute non-ST elevation [place]. 5. Type 2 diabetes 6. Volume overload Plan: continue off of IV fluids continue to avoid nephrotoxic agents. resume low-dose diuretics upon discharge.
--- NOTE | 2023-12-31 14:46 | P.EPPROC ---
- EP Procedure Note Date of Procedure: 12/31/23 Electrophysiology Procedure Note: PROCEDURE NAME: Synchronized cardioversion. Consent: Risks and benefits discussed with patient and consent obtained. Indication : Persistent Atrial Fibrillation, CHF, CAD Anesthesia: provided by Anesthesia team using propofol The appropriate time-out procedure was performed including proper identification of the patient, physician, procedure, documentation, and there were no safety issues identified. The patient participated actively in this. After sedation was achieved, the patient was placed in the supine position and hands free patches were placed on his chest in the AP position. Patient had a TIFFANY 2 days ago which did not show any evidence of left atrial appendage or left atrial thrombus. Patient has been anticoagulated. 1 shock was provided at, 200 Joules with successful resumption of normal sinus rhythm. This was confirmed on EKG. Repeat EKG confirms return to sinus rhythm. Complications: The patient tolerated the procedure well without complications.
--- NOTE | 2023-12-31 15:43 | P.PN ---
Subjective Progress Note Date: 12/31/23 Patient is a pleasant 78 years old male with past medical history of multiple medical problems including hypertension and diabetes Presents with respiratory distress the last 2 to 3 days duration and chest tightness. On admission patient was found to be in fluid overload with chest x-ray showing cardiomegaly with pulmonary vascular congestion, proBNP is elevated 5710. Patient also was mildly tachypneic and hypoxic, was placed on oxygen and he feels better On admission his blood pressure was up but now on the low side 94/64 however patient is asymptomatic heart rate count went down from 140s-150s down to 92 He is afebrile He is mildly tachypneic requiring BiPAP but now he is off BiPAP on nasal cannula Hemoglobin 12, creatinine slightly up at 1.5 with baseline 1.1 Glucose elevated at home he was on metformin 1000 twice daily, glipizide 10 mg 12/26/2023 Patient awake alert at baseline His breathing improved since admission and currently he is on 2 L oxygen with good oxygen saturation and mild tachypnea He denies chest pain He still has tachycardia around 115 rest of vitals look stable Creatinine went up 1.8 compared to baseline of 1.0-1.1 Glucose better controlled He still has a mild leukocytosis Echocardiogram showed ejection fraction of 25 to 30% with severe global hypokinesia and moderate to severe mitral regurgitation Patient creatinine increased 1.8 we will going to hold his IV Lasix. Check urine analysis and bladder scan. And keep monitoring if further worsening may consider nephrology consult. Yesterday he made more than 1.5 L of urine output. Labs reviewed, CBC looks the same. Creatinine up as above. 12/27/23 Patient had a good sleep last night No chest pain Breathing is better He is using BiPAP overnight Still on heparin drip He is getting IV fluid with sodium bicarb at 60 mL/h with the plan of IV fluid per sas sql developer Metoprolol increased to 3 times per day, he still mildly tachycardic. Blood pressure is a stable. Patient also on metoprolol 400 mg Continue with ceftriaxone x 5 days 12/28/2023 Patient is seen in follow-up today with multiple consultations following including cardiology and nephrology. Patient currently maintained on 2 to 3 L via nasal cannula reporting continued shortness of breath with minimal exertion. Patient to continue telemetry monitoring as well as continued IV heparin. Patient is scheduled for TIFFANY/cardiac catheterization today with cardiology. Will await report. Patient is afebrile with no reports of chest pains. Patient reports that his atrial fibrillation is new. Family at the bedside with multiple questions and concerns that were answered. Currently awaiting follow- up labs to monitor kidney functions closely. Creatinine 1.6 today. 12/29/2023 Patient is seen today in follow-up status post TIFFANY with cardio and cardiac catheterization revealing severe triple-vessel disease recommending CT surgery evaluation for possible surgical intervention. Patient undergoing extensive workup for possible CABG and further discussing with cardiology and CT surgery regarding all options. Surgical testing in process and CT surgery will follow- up with the patient once completed to discuss risk factors and treatment plan. Patient is currently afebrile with no reports of chest pain or palpitations. Patient reports feeling slightly improved and is currently on room air. Patient reports has been up and walking the halls has some mild shortness of breath although much improved from previous 12/30/2023 Patient is seen and evaluated in follow-up today awaiting further discussing with CT surgery and cardiology. Cardiology initially discussing PCI stenting on 12/31/2023 will now be planning for outpatient follow-up with CT surgery regarding CABG and valve repair. Cardiology discussing cardioversion in the a.m. Patient is off oxygen although does elicit shortness of breath with exertion. Patient has been tolerating diet with no reported nausea or vomiting. Kidney functions remaining stable at 1.51.6 and nephrology is following. Encouraged to increase activity as tolerated with frequent walking and will d iscuss further with consultations regarding discharge planning 12/31/2023 Patient is seen and evaluated in follow-up today with no acute overnight issues noted. Patient was n.p.o. and went down for cardioversion early this morning with cardiology Dr. Pelletier. Patient underwent 1 200 J shock and converted to sinus rhythm which was confirmed on EKG. Patient to continue on telemetry monitoring for additional 24 hours prior to discharge. Plan is for patient to follow-up with CT surgery outpatient regarding CABG. Patient is afebrile with no reports of chest pain or palpitations. Patient reports continues to have some shortness of breath with exertion. Encouraged frequent walking and increased activity as tolerated. Review of systems: Constitutional: No reports of fatigue, fever, or chills Cardiovascular: No reports of chest pain or palpitations Respiratory: reports of shortness of breath with minimal exertion that is improving although is persistent GI: No reports of nausea, vomiting, or diarrhea : No reports of dysuria or retention Neurovascular: No reports of weakness or numbness All medications have been reviewed physical exam: GENERAL: The patient is alert and oriented x3, not in any acute distress. Well developed, well nourished. Elderly appearing, obese HEENT: Pupils are round and equally reacting to light. EOMI. No scleral icterus. No conjunctival pallor. Normocephalic, atraumatic. No pharyngeal erythema. No thyromegaly. CARDIOVASCULAR: S1 and S2 muffled, irregular PULMONARY: Diminished breath sounds bilaterally otherwise chest is clear to auscultation, no wheezing , no crackles. ABDOMEN: Soft, obese, nontender, nondistended, normoactive bowel sounds. No palpable organomegaly. MUSCULOSKELETAL: No joint swelling or deformity. EXTREMITIES: No cyanosis, clubbing, or pedal edema. NEUROLOGICAL: Gross neurological examination did not reveal any focal deficits. SKIN: No rashes. no petechiae. Assessment: A-fib and RVR, new onset present on admission, status post successful cardioversion on 12/31/2023 with 200 J x 1, EKG normal sinus rhythm Acute on chronic CHF, ejection fraction 25 to 30% Status post cardiac catheterization revealing triple-vessel disease with cardiomyopathy ischemic, patient to follow-up outpatient with CT surgery regarding CABG Acute kidney injury on CKD stage III Acute hypoxic respiratory failure secondary to above. Improving Chronic anemia Diabetes mellitus type II, uncontrolled with hyperglycemia Hypertension Obesity with BMI of 36.1 GI prophylaxis DVT prophylaxis Full code Plan: Continue with heparin drip, amiodarone and metoprolol per drop hammer set up operator, patient underwent TIFFANY with cardiac catheterization with Dr. Pelletier revealing triple-vessel disease and CT surgery following undergoing workup for possible surgical intervention including CABG. Plan is for outpatient follow-up with CT surgery to discuss CABG.. Cardiology following and patient underwent cardioversion this morning and is currently sinus rhythm. Cardiology recommending continue telemetry monitoring for another 24 hours and possible discharge planning in 24 hours. Continue monitoring Accu-Cheks before meals and at bedtime and will continue with sliding scale. Continue holding metformin and glipizide at this time, will resume at discharge Due to multiple complex medical issues, prognosis is guarded Probable discharge planning in the next 24 hours once cleared by cardiology The impression and plan of care has been dictated by Fide Pool, Nurse Practitioner as directed. Dr. Sarah MD I have performed a history and examination and MDM of this patient, discussed the same with the dictator, and agree with the dictator's assessment and plan as written ,documented as a scribe. Based on total visit time, I have performed more than 50% of the visit. Objective - Vital Signs Vital signs: Vital Signs Temp 98.2 F 12/31/23 04:34 Pulse 91 12/31/23 04:00 Resp 18 12/31/23 04:34 BP 140/94 12/31/23 04:34 Pulse Ox 98 12/31/23 04:34 FiO2 35 12/31/23 03:40 Intake & Output 12/30/23 12/30/23 12/31/23 06:59 18:59 06:59 Intake Total 160.596 360 40 Output Total 500 200 640 Balance -339.404 160 -600 Weight 98.4 kg 70.5 kg Intake: Intake, IV Titration 160.596 Amount Heparin Sod,Pork in 0.45% 160.596 NaCl 25,000 unit In 0.45 % NaCl 1 250ml.bag @ 10.3 UNITS/KG/HR 10.043 mls/ hr IV .Q24H JAYLEN Rx#: [id number] Oral 360 40 Output: Urine 500 200 640 Other: Voiding Method Urinal Urinal # Voids 1 1 1 - Labs CBC & Chem 7: 12/30/23 02:46 12/31/23 10:27 Labs: Abnormal Lab Results - Last 24 Hours (Table) 12/30/23 12/30/23 12/30/23 Range/Units 06:01 10:27 10:27 APTT 65.4 H (22.0-30.0) sec Sodium 136 L (137-145) mmol/L BUN 24 H (9-20) mg/dL Creatinine 1.55 H (0.66-1.25) mg/dL Glucose 299 H (74-99) mg/dL POC Glucose (mg/dL) 248 H (70-110) mg/dL 12/30/23 12/30/23 12/30/23 Range/Units 11:19 16:11 19:55 APTT (22.0-30.0) sec Sodium (137-145) mmol/L BUN (9-20) mg/dL Creatinine (0.66-1.25) mg/dL Glucose (74-99) mg/dL POC Glucose (mg/dL) 311 H 310 H 202 H (70-110) mg/dL Microbiology - Last 24 Hours (Table) 12/29/23 08:20 Nasal Screen MRSA/MSSA - Final Nasopharyngeal Swab 12/24/23 17:40 Blood Culture - Final Blood 12/24/23 17:20 Blood Culture - Final Blood
[2023-12-31 16:18] LABS: Glucose,Whole Blood 318 mg/dL (70-110)
[2023-12-31] MEDS: hydrALAZINE HCL 10 MG TAB PO SCH (16:45)
[2023-12-31 20:22] LABS: Glucose,Whole Blood 229 mg/dL (70-110)
[2023-12-31] MEDS: METOPROLOL TARTRATE 25 MG TAB PO SCH (21:41)
[2024-01-01 06:07] LABS: Glucose,Whole Blood 203 mg/dL (70-110)
[2024-01-01 07:47] VITALS: RESP 18; TEMP 97.6
[2024-01-01 07:52] LABS: African American GFR (CKD) 41 (>60 ml/min/1.73 sqM); Anion Gap 6 mmol/L; Blood Urea Nitrogen 23 mg/dL (9-20); Calcium 9.1 mg/dL (8.4-10.2); Carbon Dioxide 25 mmol/L (22-30); Chloride 105 mmol/L (98-107); Glucose 191 mg/dL (74-99); Non-African American GFR(CKD) 35 (>60 ml/min/1.73 sqM); Potassium 4.6 mmol/L (3.5-5.1); Sodium 136 mmol/L (137-145)
[2024-01-01 11:11] VITALS: BP 120/66; PULSE 47
[2024-01-01 11:25] LABS: Glucose,Whole Blood 230 mg/dL (70-110)
--- NOTE | 2024-01-01 13:16 | P.PN ---
Subjective HISTORY OF PRESENT ILLNESS: This is an 78-year-old male with past medical history of diabetes mellitus type 2, hypertension, prostate cancer status post radiation and surgeries several years ago. We have been asked to evaluate the patient for A-fib with RVR. Patient gives history that he has been having trouble with breathing for the past 1 to 2 weeks that comes and goes. He also has had chest pain across the top of his chest. The chest pain occurs with activity such as after he is golfing. He would then sit down and the pain would go away with rest. He denies orthopnea. Chest pressure seems to happen with exertion but not at rest. He denies history of stroke, kidney problems, lung problems. He has not seen a lead supply worker in the past and has had no cardiac workup in the past. He has not been admitted to the hospital recently. He states he is having good urine output. No fever or chills. No nausea or vomiting. His initial heart rates were in the 150s, pulse ox 88% requiring BiPAP, blood pressure 137/116. Blood pressure now 94/64, heart rate 92, pulse ox 97% on 4 L nasal cannula. Patient was on BiPAP during the night. Telemetry is atrial fibrillation running between 96 and 122 bpm. Patient was started on heparin drip. He is status post Cardizem bolus 10 mg x 2, Cardizem drip and later started on amiodarone drip. Discussed with patient and multiple family members at the bedside need for cardiac catheterization and patient and family are in agreement. They do understand that patient's renal function will need to be stable before this is done. Most likely, this will occur on Thursday. EKG: #1 atrial fibrillation with IVCD at ventricular rate 150 bpm, #2 atrial fibrillation with ventricular rate of 107 bpm with IVCD Chest x-ray: #1 right middle lobe airspace opacities correlate for developing pneumonia. #2 cardiomegaly with increased interstitial lung markings possibly pulmonary vascular congestion. Medial right lower lung on prior radiograph now represent overlapping pulmonary trunk with pulmonary vascular congestion. Laboratory studies: WBC 8.1, hemoglobin 12.1, sodium 136, potassium 4.5, BUN 24 creatinine 1.56, CO2 19. Blood sugar 275. Troponin 0.334, 0.421, 0.547. proBNP 5710. Influenza A, influenza B, RSV, COVID-19 not detected. Home cardiac medications: Lisinopril 10 mg daily. Progress note 12/26/2023 Patient is seen and examined at bedside this a.m. He denies having any active chest pain chest pressure shortness of breath. He does report feeling much better since the time of admission. 124/65, heart rate 110 bpm, atrial fibrillation echo EF of 25 to 30%, severely reduced global LV systolic function, moderate to severe mitral regurgitation, aortic valve thickening December 27, 2023 BP 105/74, heart rate 95 bpm, afib on telemetry Yesterday morning creatinine increased from 1.54 on admission to 1.8. Repeat creatinine was 1.98. For this we held his diuretics and started him on gentle hydration with 60 cc/h for 12 hours giving him total of 1 L fluid. At this moment he appears euvolemic. His chest x-ray does not show any significant pulmonary congestion at present. It is better as compared to CXR from admission 12/28/2023 Patient examined this morning. Patient is sitting up in the chair. Patient currently denies chest pain or pressure. He reports improvement in his shortness of breath. He remains in atrial fibrillation with controlled ventricular rate. Creatinine today has improved to 1.6. 12/29/2023 Patient is status post cardiac catheterization and TIFFANY with Dr. Pelletier. Cardiac catheterization revealed 80% mid LAD stenosis, 90% mid OM 2 disease, and mode rate diffuse disease in PDA. Patient also underwent TIFFANY revealing severe mitral regurgitation, moderate tricuspid regurgitation, severe left atrial dilatation And no evidence of thrombus. Patient remains in atrial fibrillation with controlled ventricular rate. He currently denies any chest pain or pressure. Denies any shortness of breath. 12/30/2023 Patient examined this morning the bedside. Patient currently denies chest pain or pressure. He denies shortness of breath. Telemetry reveals atrial fibrillation with controlled ventricular rate. He remains on IV heparin. Patient was evaluated by CT surgery yesterday who recommended against bypass surgery and recommended PCI and medical management. Plan for possible [place] versus [facility] if his MR does not improve down the road. 01/01/2024 Patient examined this morning at the bedside. Patient currently denies chest pain or pressure. He denies shortness of breath. Patient is maintaining sinus mechanism this morning. Patient's heart rate is in the 50s. PHYSICAL EXAM: VITAL SIGNS: Reviewed. GENERAL: Well-developed in no acute distress. NECK: Supple. No JVD or thyromegaly LUNGS: Respirations even and unlabored. Lungs essentially clear to auscultation bilaterally. HEART: Regular rate and rhythm. S1 and S2 heard. EXTREMITIES: Normal range of motion. No clubbing or cyanosis. Peripheral pulses intact. No lower extremity edema ASSESSMENT: Shortness of breath New onset paroxysmal atrial fibrillation with RVR, s/p cardioversion, currently maintaining sinus bradycardia Acute heart failure with reduced EF, 25 to 30% New onset cardiomyopathy, ischemic Status post cardiac catheterization revealing triple-vessel CAD, 80% mid LAD, 90% OM 2, and moderate diffuse disease in PDA Elevated troponins, flat, likely type II CO secondary to oxygen supply and demand mismatch Acute kidney injury Severe mitral regurgitation per TIFFANY Hypertension Diabetes, hemoglobin A1c 9.3 PLAN: Continue current cardiac medications Decrease metoprolol to 12.5 mg twice a day Patient is stable for discharge home today from a cardiac standpoint Patient to have CABG and MVR in the near future Nurse practitioner note has been reviewed by physician. Signing provider agrees with the documented findings, assessment, and plan of care documented by SCREEN ROLLER as a scribe. Objective - Vital Signs Vital signs: Vital Signs Temp 97.6 F 01/01/24 07:46 Pulse 47 L 01/01/24 11:10 Resp 18 01/01/24 11:10 BP 120/66 01/01/24 11:10 Pulse Ox 93 L 01/01/24 11:10 FiO2 35 12/31/23 03:40 Intake & Output 12/31/23 01/01/24 01/01/24 18:59 06:59 18:59 Intake Total 1060 416 Output Total 300 1460 550 Balance 760 -1460 -134 Weight 70.5 kg 99.1 kg Intake: IV 100 Oral 960 416 Output: Urine 300 1460 550 Other: Voiding Method Urinal Urinal Urinal # Voids 1 1 - Labs CBC & Chem 7: 12/30/23 02:46 01/01/24 06:56 Labs: Abnormal Lab Results - Last 24 Hours (Table) 12/31/23 12/31/23 01/01/24 Range/Units 16:16 20:21 06:06 Sodium (137-145) mmol/L BUN (9-20) mg/dL Creatinine (0.66-1.25) mg/dL Glucose (74-99) mg/dL POC Glucose (mg/dL) 318 H 229 H 203 H (70-110) mg/dL 01/01/24 01/01/24 Range/Units 06:56 11:23 Sodium 136 L (137-145) mmol/L BUN 23 H (9-20) mg/dL Creatinine 1.79 H (0.66-1.25) mg/dL Glucose 191 H (74-99) mg/dL POC Glucose (mg/dL) 230 H (70-110) mg/dL
--- NOTE | 2024-01-01 18:38 | P.PN ---
Subjective patient is seen for follow-up for acute kidney injury. status post cardiac catheterization and cardiothoracic surgery has been consulted. no plans for surgery at this time. Serum creatinine increased to 1.79 today. Patient was started on Cozaar yesterday. No significant complaints today. Objective - Vital Signs Vital signs: Vital Signs Temp 97.6 F 01/01/24 07:46 Pulse 47 L 01/01/24 11:10 Resp 18 01/01/24 11:10 BP 120/66 01/01/24 11:10 Pulse Ox 93 L 01/01/24 11:10 FiO2 35 12/31/23 03:40 Intake & Output 12/31/23 01/01/24 01/01/24 18:59 06:59 18:59 Intake Total 1060 416 Output Total 300 1460 550 Balance 760 -1460 -134 Weight 70.5 kg 99.1 kg Intake: IV 100 Oral 960 416 Output: Urine 300 1460 550 Other: Voiding Method Urinal Urinal Urinal # Voids 1 1 - Exam patient is awake, comfortable, no acute distress. Alert oriented 3. 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 Acute kidney injury, ATN secondary to hypotension, cardiorenal syndrome and recent diuresis. UA is benign. status post IV fluids 2. A. fib with RVR currently with controlled ventricular response and maintained on IV heparin. 3. Cardiomyopathy with EF of 25-30% 4. Acute non-ST elevation [place]. 5. Type 2 diabetes 6. Volume overload Plan: continue off of IV fluids Hold angiotensin receptor blockers for now. We can try to restart as outpatient. continue to avoid nephrotoxic agents. resume low-dose diuretics upon discharge.
[2024-01-01] MEDS ORDERED: METOPROLOL TARTRATE 12.5 MG TAB PO SCH (21:00)
--- NOTE | 2024-01-04 11:17 | P.DS ---
Providers Date of admission: 12/24/23 17:02 Expected date of discharge: 01/01/24 Attending physician: Dong Aguero MD Consults: 12/24/23 17:02 Consult Physician Urgent Consulting Provider: [facility] Consult Reason/Comments: A-fib with rapid ventricular response Do you want consulting provider notified?: Yes 12/26/23 19:22 Consult Physician Routine Consulting Provider: Mica Sarah Consult Reason/Comments: Elevated creatinine Do you want consulting provider notified?: Yes 12/28/23 17:01 Consult Physician Routine Consulting Provider: Hunter Das Consult Reason/Comments: Multi vessel disease Do you want consulting provider notified?: Yes Primary care physician: Ton Charity [facility] Course: Final diagnosis A-fib and RVR, new onset present on admission, status post successful cardioversion on 12/31/2023 with 200 J x 1, EKG normal sinus rhythm Acute on chronic CHF, ejection fraction 25 to 30% Status post cardiac catheterization revealing triple-vessel disease with cardiomyopathy ischemic, patient to follow-up outpatient with CT surgery regarding CABG Acute kidney injury on CKD stage III Acute hypoxic respiratory failure secondary to above. Improving Chronic anemia Diabetes mellitus type II, uncontrolled with hyperglycemia Hypertension Obesity with BMI of 36.1 GI prophylaxis DVT prophylaxis Full code Discharge disposition Patient is being discharged in a stable condition with guarded prognosis to home. Patient will follow-up with Dr. Nash in the outpatient setting upon discharge. Patient is to continue with current medications as mentioned below and close outpatient follow-up with cardiology and CT surgery as scheduled. Total time taken is greater than 35 minutes. Hospital course This is a 78-year-old male who was recently admitted with shortness of breath with new onset atrial fibrillation with RVR being closely monitored. Patient underwent echo along with cardiac catheterization revealing triple-vessel di sease with cardiomyopathy recommending and initiated CT surgery workup for possible CABG. Initially patient discussing stenting with PCI and later underwent cardioversion with cardiology. Patient on rate control with no overnight issues noted and has been cleared by cardiology for close outpatient follow-up. Please refer to other consultation notes for further HPI. Recommend close outpatient follow-up with labs and a prescription was provided to monitor kidney functions and electrolytes. Currently no reports of chest pain, shortness of breath, or palpitations. Patient is afebrile. No reports of nausea or vomiting and patient is tolerating diet. Patient will be discharged home today. Guarded prognosis Physical exam: Gen: This is a 78-year-old male who is awake, alert and oriented x 3, well- developed, well-nourished, obese HEENT: Head is atraumatic, normocephalic. Pupils equal, round. Sclerae is anicteric. NECK: Supple. No JVD. No lymphadenopathy. No thyromegaly. LUNGS: Diminished breath sounds bilaterally otherwise clear to auscultation. No wheezes or rhonchi. No intercostal retractions. HEART: S1, S2 are muffled ABDOMEN: Soft. Obese bowel sounds are present. No masses. No tenderness. EXTREMITIES: No pedal edema. No calf tenderness. NEUROLOGICAL: Patient is awake, alert and oriented x3. Cranial nerves 2 through 12 are grossly intact. Please refer to medication reconciliation sheet for a list of medications. The impression and plan of care has been dictated by Fide Pool, Nurse Practitioner as directed. Dr. Sarah MD I have performed a history and examination and MDM of this patient, discussed the same with the dictator, and agree with the dictator's assessment and plan as written ,documented as a scribe. Based on total visit time, I have performed more than 50% of the visit. Patient Condition at Discharge: Fair Plan - Discharge Summary Discharge Rx Participant: No New Discharge Prescriptions: New hydrALAZINE HCL [Apresoline] 10 mg PO TID #90 tab Aspirin 81 mg PO DAILY #30 tab Mupirocin 2% Oint [Bactroban 2% Oint] 1 applic NASAL BID #20 each Amiodarone [Cordarone] 400 mg PO BID #60 tab Apixaban [Eliquis] 5 mg PO BID #60 tab Isosorbide Mononitrate ER [Imdur] 30 mg PO DAILY #30 tab Dapagliflozin Propanediol [Farxiga] 10 mg PO DAILY #30 tab Atorvastatin [Lipitor] 40 mg PO DAILY #30 tab Metoprolol Tartrate [Lopressor] 12.5 mg PO BID #60 tab Continue metFORMIN HCL 1,000 mg PO BID Timolol 0.5% Ophth Soln [Timoptic 0.5% Ophth Soln] 1 drop BOTH EYES BID glipiZIDE XL [Glucotrol XL] 10 mg PO DAILY Discontinued lisinopriL [Zestril] 10 mg PO DAILY Discharge Medication List metFORMIN HCL 1,000 mg PO BID 03/18/23 [History] Timolol 0.5% Ophth Soln [Timoptic 0.5% Ophth Soln] 1 drop BOTH EYES BID 12/24/23 [History] glipiZIDE XL [Glucotrol XL] 10 mg PO DAILY 12/24/23 [History] Amiodarone [Cordarone] 400 mg PO BID #60 tab 01/01/24 [Rx] Apixaban [Eliquis] 5 mg PO BID #60 tab 01/01/24 [Rx] Aspirin 81 mg PO DAILY #30 tab 01/01/24 [Rx] Atorvastatin [Lipitor] 40 mg PO DAILY #30 tab 01/01/24 [Rx] Dapagliflozin Propanediol [Farxiga] 10 mg PO DAILY #30 tab 01/01/24 [Rx] Isosorbide Mononitrate ER [Imdur] 30 mg PO DAILY #30 tab 01/01/24 [Rx] Metoprolol Tartrate [Lopressor] 12.5 mg PO BID #60 tab 01/01/24 [Rx] Mupirocin 2% Oint [Bactroban 2% Oint] 1 applic NASAL BID #20 each 01/01/24 [Rx] hydrALAZINE HCL [Apresoline] 10 mg PO TID #90 tab 01/01/24 [Rx] Follow up Appointment(s)/Referral(s): Umair Pelletier MD [Medical Doctor] - 01/08/24 1:30 pm Hunter Das MD [STAFF PHYSICIAN] - 01/14/24 3:15 pm Ton Nash DO [Primary Care Provider] - 01/11/24 3:15 pm Patient Instructions/Handouts: A-fib (Atrial Fibrillation) (DC), After Radial Heart Catheterization (GEN) Activity/Diet/Wound Care/Special Instructions: Please obtain dental clearance after discharge from the hospital and prior to following up with Dr. Das in the office. Activity limited until follow-up Follow-up with primary care provider Follow-up with cardiology outpatient Follow-up with cardiothoracic surgery as discussed Continue taking medications as prescribed Continue with heart healthy diabetic diet Closely monitor blood sugars and keep a diary of all readings for follow-up appointments Continue using incentive spirometer at least 10 times every hour while awake Discharge Disposition: HOME SELF-CARE
== END 2024-01-01 15:27 | disposition home or self-care (01) | DRG 280 ==
LOC: EC 13:56 → 3SCARD 17:02
PROVIDERS: ADMIT Internal Medicine; ATTEND Internal Medicine
PROC: B2111ZZ Fluoroscopy of Multiple Coronary Arteries using Low Osmolar Contrast (ICD-10-PCS; 2023-12-28)
PROC: B246ZZ4 Ultrasonography of Right and Left Heart, Transesophageal (ICD-10-PCS; 2023-12-28)
PROC: 4A023N7 Measurement of Cardiac Sampling and Pressure, Left Heart, Percutaneous Approach (ICD-10-PCS; principal; 2023-12-28 10:15)
PROC: 5A2204Z Restoration of Cardiac Rhythm, Single (ICD-10-PCS; 2023-12-31)
PROC: 5A09357 Assistance with Respiratory Ventilation, Less than 24 Consecutive Hours, Continuous Positive Airway Pressure (ICD-10-PCS; 2023-12-31)
DX: I48.0 Paroxysmal atrial fibrillation (principal); I50.23 Acute on chronic systolic (congestive) heart failure; I21.A1 Myocardial infarction type 2; J18.9 Pneumonia, unspecified organism; E66.9 Obesity, unspecified; I95.9 Hypotension, unspecified; Z20.822 Contact with and (suspected) exposure to COVID-19; D64.9 Anemia, unspecified; I34.0 Nonrheumatic mitral (valve) insufficiency; R00.0 Tachycardia, unspecified; I25.5 Ischemic cardiomyopathy; E11.65 Type 2 diabetes mellitus with hyperglycemia; I42.9 Cardiomyopathy, unspecified; Z79.01 Long term (current) use of anticoagulants; Z68.36 Body mass index [BMI] 36.0-36.9, adult; Z98.61 Coronary angioplasty status; Z88.0 Allergy status to penicillin; Z87.891 Personal history of nicotine dependence; Z79.84 Long term (current) use of oral hypoglycemic drugs
CPT/HCPCS: 36415; 71046; 71250; 76770; 80048; 80053; 80061; 80074; 81003; 82728; 83036; 83540; 83550; 83605; 83735; 83880; 84145; 84443; 84484; 85025; 85027; 85610; 85730; 87040; 87070; 87636; 92960; 93005; 93306; 93312; 93320; 93325; 93458; 93880; 93922; 93970; 94150; 94660; 94760; 96365; 96366; 96368; 96375; 99291

== ENCOUNTER → 2024-01-08 | Outpatient (CLI) | payer MEDICARE ==
[2024-01-08 20:26] LABS: HCT 31.5 % (37.2-50.0); HGB 10.5 g/dL (12.0-17.0); MCH 32.1 pg (27.0-32.0); MCHC 33.3 g/dL (32.0-37.0); MCV 96.3 FL (80.0-97.0); NRBC Per 100 WBC 0 X 10*3/uL (0.00-0.01); Platelet Count 323 X 10*3/uL (140-440); RBC 3.27 X 10*6/uL (4.10-5.60); RDW 15.4 % (11.5-14.5); WBC 9.68 X 10*3/uL (4.50-10.00)
[2024-01-08 20:48] LABS: ALT 17 U/L (8-49); AST 12 U/L (13-35); Albumin 4.6 g/dL (3.8-4.9); Albumin/Globulin Ratio 2.42 Ratio (1.60-3.17); Alkaline Phosphatase 55 U/L (41-126); BUN/Creat Ratio 20.09 Ratio (12.00-20.00); Blood Urea Nitrogen 46.2 mg/dL (9.0-27.0); Calcium 9.5 mg/dL (8.7-10.3); Carbon Dioxide 20.9 mmol/L (21.6-31.8); Chloride 100 mmol/L (96-109); Globulin 1.9 g/dL (1.6-3.3); Glucose 160 mg/dL (70-110); NT-Pro-B-Type Natriuretic Pept 494 pg/mL (0-450); Potassium 5.6 mmol/L (3.5-5.5); Sodium 138 mmol/L (135-145); Total Bilirubin 0.7 mg/dL (0.3-1.2); Total Protein 6.5 g/dL (6.2-8.2)
== END | disposition home or self-care (01) ==
LOC: LABWHC1 14:58
PROVIDERS: ATTEND Student in an Organized Health Care Education/Training Program
DX: N18.9 Chronic kidney disease, unspecified (principal); I50.9 Heart failure, unspecified; D63.1 Anemia in chronic kidney disease
CPT/HCPCS: 36415; 80053; 83735; 83880; 85027

== ENCOUNTER → 2024-01-13 | Outpatient (CLI) | payer MEDICARE ==
[2024-01-13 15:38] LABS: NT-Pro-B-Type Natriuretic Pept 283 pg/mL (0-450)
[2024-01-13 15:39] LABS: ALT 17 U/L (8-49); AST 14 U/L (13-35); Albumin 4.5 g/dL (3.8-4.9); Albumin/Globulin Ratio 2.65 Ratio (1.60-3.17); Alkaline Phosphatase 48 U/L (41-126); BUN/Creat Ratio 26.05 Ratio (12.00-20.00); Blood Urea Nitrogen 54.7 mg/dL (9.0-27.0); Calcium 9.6 mg/dL (8.7-10.3); Carbon Dioxide 20.6 mmol/L (21.6-31.8); Chloride 101 mmol/L (96-109); Globulin 1.7 g/dL (1.6-3.3); Glucose 225 mg/dL (70-110); Magnesium 2.2 mg/dL (1.5-2.4); Phosphorus 4.9 mg/dL (2.4-5.1); Potassium 4.9 mmol/L (3.5-5.5); Sodium 138 mmol/L (135-145); Total Bilirubin 0.6 mg/dL (0.3-1.2); Total Protein 6.2 g/dL (6.2-8.2)
== END | disposition home or self-care (01) ==
LOC: LABWHC1 10:23
PROVIDERS: ATTEND Student in an Organized Health Care Education/Training Program
DX: I50.9 Heart failure, unspecified (principal); E11.22 Type 2 diabetes mellitus with diabetic chronic kidney disease; N18.9 Chronic kidney disease, unspecified
CPT/HCPCS: 36415; 80053; 83735; 83880; 84100

== ENCOUNTER 2024-01-21 18:54 | Observation (INO) | payer MEDICARE ==
--- NOTE | 2024-01-21 19:05 | ED ---
General Adult HPI - General Chief complaint: Abdominal Pain Stated complaint: abd labs Time Seen by Provider: 01/21/24 19:04 Source: patient Mode of arrival: ambulatory Limitations: no limitations - History of Present Illness Initial comments: 78-year-old male sent by Dr. Das for low hemoglobin. Patient was receiving lab work to clear him for cardiac surgery, and he was found to have a hemoglobin of 6.2. Patient denies any history of anemia or GI bleed. He denies any blood in his stool or black stool. Denies any abdominal pain, chest pain, difficulty breathing. Denies any weakness nausea or vomiting. Patient states that he is having no symptoms. He is currently on Eliquis - Related Data Home Medications Medication Instructions Recorded Confirmed metFORMIN HCL 1,000 mg PO BID 03/18/23 12/24/23 Timolol 0.5% Ophth Soln [Timoptic 1 drop BOTH EYES BID 12/24/23 12/24/23 0.5% Ophth Soln] glipiZIDE XL [Glucotrol XL] 10 mg PO DAILY 12/24/23 12/24/23 Previous Rx's Medication Instructions Recorded Amiodarone [Cordarone] 400 mg PO BID #60 tab 01/01/24 Apixaban [Eliquis] 5 mg PO BID #60 tab 01/01/24 Aspirin 81 mg PO DAILY #30 tab 01/01/24 Atorvastatin [Lipitor] 40 mg PO DAILY #30 tab 01/01/24 Dapagliflozin Propanediol [Farxiga] 10 mg PO DAILY #30 tab 01/01/24 Isosorbide Mononitrate ER [Imdur] 30 mg PO DAILY #30 tab 01/01/24 Metoprolol Tartrate [Lopressor] 12.5 mg PO BID #60 tab 01/01/24 Mupirocin 2% Oint [Bactroban 2% 1 applic NASAL BID #20 each 01/01/24 Oint] hydrALAZINE HCL [Apresoline] 10 mg PO TID #90 tab 01/01/24 Allergies Allergy/AdvReac Type Severity Reaction Status Date / Time Penicillins Allergy Unknown Verified 01/21/24 10:16 Childhood Review of Systems ROS Statement: Those systems with pertinent positive or pertinent negative responses have been documented in the HPI. ROS Other: All systems not noted in ROS Statement are negative. Past Medical History Past Medical History: Cancer, Chest Pain / Angina, Diabetes Mellitus, Hypertension, Prostate Disorder Additional Past Medical History / Comment(s): prostate cancer History of Any Multi-Drug Resistant Organisms: None Reported Past Surgical History: Appendectomy, Orthopedic Surgery Additional Past Surgical History / Comment(s): Right hip replacement, bilateral cataract Past Anesthesia/Blood Transfusion Reactions: No Reported Reaction Past Psychological History: No Psychological Hx Reported Smoking Status: Former smoker Past Alcohol Use History: None Reported Past Drug Use History: None Reported - Past Family History Father Family Medical History: Coronary Artery Disease (CAD) Additional Family Medical History / Comment(s): from an aneurysm Mother Family Medical History: Cancer General Exam - General Exam Comments Initial Comments: Visual Physical Exam Vital signs reviewed General: Well-appearing, nontoxic, no acute distress. Head: Normocephalic, atraumatic Eyes: PERRLA, EOMI ENT: Airway patent Chest: Nonlabored breathing Skin: No visual rash, normal skin tone Neuro: Alert and oriented 3 Musculoskeletal: No gross abnormalities Limitations: no limitations General appearance: alert, in no apparent distress Head exam: Present: atraumatic, normocephalic Eye exam: Present: normal appearance, EOMI Neck exam: Present: normal inspection. Absent: meningismus Respiratory exam: Present: normal lung sounds bilaterally. Absent: respiratory distress, wheezes, rales, rhonchi, stridor Cardiovascular Exam: Present: regular rate, normal rhythm, normal heart sounds. Absent: systolic murmur, diastolic murmur, rubs, gallop, clicks GI/Abdominal exam: Present: soft. Absent: distended, tenderness, guarding, rebound, rigid Rectal exam: Present: normal inspection, normal rectal tone, heme (+) stool Neurological exam: Present: alert, oriented X3 Psychiatric exam: Present: normal affect, normal mood Skin exam: Present: warm, dry Course Vital Signs 01/21/24 01/21/24 01/22/24 18:59 22:58 00:18 Temperature 98.3 F Pulse Rate 68 79 78 Respiratory 18 16 17 Rate Blood Pressure 108/58 146/67 130/78 O2 Sat by Pulse 99 98 96 Oximetry 01/22/24 01/22/24 01/22/24 00:51 01:01 01:21 Temperature 98.7 F 99.1 F 99.5 F Pulse Rate 84 83 81 Respiratory 16 16 16 Rate Blood Pressure 144/71 135/69 124/65 O2 Sat by Pulse 97 96 97 Oximetry 01/22/24 01/22/24 02:54 03:59 Temperature 98.6 F Pulse Rate 77 90 Respiratory 16 16 Rate Blood Pressure 132/66 132/86 O2 Sat by Pulse 97 94 L Oximetry Medical Decision Making - Medical Decision Making Was pt. sent in by a medical professional or institution (, [facility], [facility], urgent care, hospital, or [facility]...) When possible be specific @ -Sent by Dr. Das Did you speak to anyone other than the patient for history (EMS, parent, family, police, friend...)? What history was obtained from this source @ -[No] Did you review nursing and triage notes (agree or disagree)? Why? @ -[I reviewed and agree with nursing and triage notes] Were old charts reviewed (outside hosp., previous admission, EMS record, old EKG, old radiological studies, urgent care reports/EKG's, [facility] records)? Report findings @ -Patient's recent labs which show hemoglobin 6.1 were reviewed Differential Diagnosis (chest pain, altered mental status, abdominal pain women, abdominal pain men, vaginal bleeding, weakness, fever, dyspnea, syncope, headache, dizziness, GI bleed, back pain, seizure, CVA, palpatations, mental health, musculoskeletal)? @ -Differential includes GI bleed, hemolytic anemia, iron deficiency, this is not an all-inclusive list EKG interpreted by me (3pts min.). @ -[As above] X-rays interpreted by me (1pt min.). @ -[None done] CT interpreted by me (1pt min.). @ -[None done] U/S interpreted by me (1pt. min.). @ -[None done] What testing was considered but not performed or refused? (CT, X-rays, U/S, labs)? Why? @ -[None] What meds were considered but not given or refused? Why? @ -[None] Did you discuss the management of the patient with other professionals (professionals i.e. , [facility], [facility] P[facility]ER, lab, RT, psych nurse, vp digital marketing social media and crm, coach builder, teacher, credit risk review officer, director case)? Give summary @ -My attending spoke with Dr. Rod who accepted admission Was smoking cessation discussed for >3mins.? @ -[No] Was critical care preformed (if so, how long)? @ -[No] Were there social determinants of health that impacted care today? How? (Homelessness, low income, unemployed, alcoholism, drug addiction, transportation, low edu. Level, literacy, decrease access to med. care, correction, rehab)? @ -[No] Was there de-escalation of care discussed even if they declined (Discuss DNR or withdrawal of care, Hospice)? DNR status @ -[No] What co-morbidities impacted this encounter? (DM, HTN, Smoking, COPD, CAD, Cancer, CVA, ARF, Chemo, Hep., AIDS, mental health diagnosis, sleep apnea, morbid obesity)? @ -[None] Was patient admitted / discharged? Hospital course, mention meds given and route, prescriptions, significant lab abnormalities, going to OR and other per tinent info. @ -78-year-old male sent in for evaluation after incidental finding of hemoglobin 6.1 on lab work for surgical clearance. Patient is on Eliquis. He has no symptoms at this time. Hemoglobin 6.1 hematocrit 19.1. Stool occult is positive. Patient has had no black stool or bloody stool. 1 unit PRBC ordered. Patient is admitted with consult to GI for GI bleed. He is agreeable with this plan. I discussed this case with my attending Dr. Guadarrama Undiagnosed new problem with uncertain prognosis? @ -[No] Drug Therapy requiring intensive monitoring for toxicity (Heparin, Nitro, Ins ulin, Cardizem)? @ -[No] Were any procedures done? @ -[No] Diagnosis/symptom? @ -Anemia requiring blood transfusion, GI bleed Acute, or Chronic, or Acute on Chronic? @ -Acute Uncomplicated (without systemic symptoms) or Complicated (systemic symptoms)? @ -Complicated Side effects of treatment? @ -[No] Exacerbation, Progression, or Severe Exacerbation? @ -[No] Poses a threat to life or bodily function? How? (Chest pain, USA, CT, pneumonia, PE, COPD, DKA, ARF, appy, cholecystitis, CVA, Diverticulitis, Homicidal, Suicidal, threat to staff... and all critical care pts) @ -Yes - Lab Data Result diagrams: 01/21/24 19:10 01/21/24 19:10 Lab Results 01/21/24 01/21/24 01/21/24 Range/Units 19:10 19:10 23:15 WBC 6.5 (3.8-10.6) k/uL RBC 1.88 L (4.30-5.90) m/uL Hgb 6.1 L* D (13.0-17.5) gm/dL Hct 19.1 L* (39.0-53.0) % MCV 101.8 H (80.0-100.0) fL MCH 32.6 (25.0-35.0) pg MCHC 32.0 (31.0-37.0) g/dL RDW 17.7 H (11.5-15.5) % Plt Count 235 (150-450) k/uL MPV 7.3 Neutrophils % 83 % Lymphocytes % 7 % Monocytes % 4 % Eosinophils % 6 % Basophils % 0 % Neutrophils # 5.3 (1.3-7.7) k/uL Lymphocytes # 0.4 L (1.0-4.8) k/uL Monocytes # 0.3 (0-1.0) k/uL Eosinophils # 0.4 (0-0.7) k/uL Basophils # 0.0 (0-0.2) k/uL Hypochromasia Moderate Poikilocytosis Moderate Anisocytosis Slight Macrocytosis Moderate Sodium 136 L (137-145) mmol/L Potassium 4.4 (3.5-5.1) mmol/L Chloride 104 (98-107) mmol/L Carbon Dioxide 18 L (22-30) mmol/L Anion Gap 14 mmol/L BUN 45 H (9-20) mg/dL Creatinine 1.72 H (0.66-1.25) mg/dL Est GFR (CKD-EPI)AfAm 42 (>60 ml/min/1.73 sqM) Est GFR (CKD-EPI)NonAf 37 (>60 ml/min/1.73 sqM) Glucose 141 H (74-99) mg/dL Calcium 9.1 (8.4-10.2) mg/dL Total Bilirubin 1.0 (0.2-1.3) mg/dL AST 17 (17-59) U/L ALT 14 (4-49) U/L Alkaline Phosphatase 41 (38-126) U/L Total Protein 5.6 L (6.3-8.2) g/dL Albumin 3.7 (3.5-5.0) g/dL Stool Occult Blood Positive (Negative) Blood Type Blood Type Recheck Bld Type Recheck Status Antibody Screen Crossmatch Spec Expiration Date 01/21/24 Range/Units 23:20 WBC (3.8-10.6) k/uL RBC (4.30-5.90) m/uL Hgb (13.0-17.5) gm/dL Hct (39.0-53.0) % MCV (80.0-100.0) fL MCH (25.0-35.0) pg MCHC (31.0-37.0) g/dL RDW (11.5-15.5) % Plt Count (150-450) k/uL MPV Neutrophils % % Lymphocytes % % Monocytes % % Eosinophils % % Basophils % % Neutrophils # (1.3-7.7) k/uL Lymphocytes # (1.0-4.8) k/uL Monocytes # (0-1.0) k/uL Eosinophils # (0-0.7) k/uL Basophils # (0-0.2) k/uL Hypochromasia Poikilocytosis Anisocytosis Macrocytosis Sodium (137-145) mmol/L Potassium (3.5-5.1) mmol/L Chloride (98-107) mmol/L Carbon Dioxide (22-30) mmol/L Anion Gap mmol/L BUN (9-20) mg/dL Creatinine (0.66-1.25) mg/dL Est GFR (CKD-EPI)AfAm (>60 ml/min/1.73 sqM) Est GFR (CKD-EPI)NonAf (>60 ml/min/1.73 sqM) Glucose (74-99) mg/dL Calcium (8.4-10.2) mg/dL Total Bilirubin (0.2-1.3) mg/dL AST (17-59) U/L ALT (4-49) U/L Alkaline Phosphatase (38-126) U/L Total Protein (6.3-8.2) g/dL Albumin (3.5-5.0) g/dL Stool Occult Blood (Negative) Blood Type O Positive Blood Type Recheck O Pos Bld Type Recheck Status No Antibody Screen NEGATIVE Crossmatch See Detail Spec Expiration Date 01/24/20242319 Disposition Clinical Impression: Anemia requiring transfusions, GI bleed Disposition: ADMITTED IP TO THIS HOSP Condition: Serious Time of Disposition: 23:44
[2024-01-21 19:58] LABS: Anisocytosis Slight; Basophils % (A) 0 %; Eosinophils # (A) 0.4 k/uL (0-0.7); Eosinophils % (A) 6 %; Hypochromasia Moderate; Lymphocytes # (A) 0.4 k/uL (1.0-4.8); Lymphocytes % (A) 7 %; MCH 32.6 pg (25.0-35.0); MCV 101.8 fL (80.0-100.0); Macrocytosis Moderate; Mean Platelet Volume 7.3; Monocytes # (A) 0.3 k/uL (0-1.0); Monocytes % (A) 4 %; Neutrophils # (A) 5.3 k/uL (1.3-7.7); Neutrophils % (A) 83 %; Platelet Count 235 k/uL (150-450); Poikilocytosis Moderate; RBC 1.88 m/uL (4.30-5.90); RDW 17.7 % (11.5-15.5); WBC 6.5 k/uL (3.8-10.6)
[2024-01-21 20:03] LABS: ALT 14 U/L (4-49); AST 17 U/L (17-59); African American GFR (CKD) 42 (>60 ml/min/1.73 sqM); Albumin 3.7 g/dL (3.5-5.0); Alkaline Phosphatase 41 U/L (38-126); Anion Gap 14 mmol/L; Blood Urea Nitrogen 45 mg/dL (9-20); Calcium 9.1 mg/dL (8.4-10.2); Carbon Dioxide 18 mmol/L (22-30); Chloride 104 mmol/L (98-107); Glucose 141 mg/dL (74-99); Non-African American GFR(CKD) 37 (>60 ml/min/1.73 sqM); Potassium 4.4 mmol/L (3.5-5.1); Sodium 136 mmol/L (137-145); Total Protein 5.6 g/dL (6.3-8.2)
[2024-01-21 20:18] LABS: HGB 6.1 gm/dL (13.0-17.5)
[2024-01-21 20:19] LABS: HCT 19.1 % (39.0-53.0)
[2024-01-21] MEDS ORDERED: NALOXONE 0.4 MG/ML 1 ML VIAL IV PRN (23:41)
[2024-01-21] MEDS ORDERED: ACETAMINOPHEN TAB 325 MG TAB PO PRN (23:41)
[2024-01-22] MEDS: SODIUM CHLORIDE 0.9% 1,000 ML IV SCH
[2024-01-22 08:13] LABS: Anisocytosis Slight; Basophils % (A) 0 %; Eosinophils # (A) 0.4 k/uL (0-0.7); Eosinophils % (A) 8 %; HCT 21.3 % (39.0-53.0); HGB 7.2 gm/dL (13.0-17.5); Hypochromasia Moderate; Lymphocytes # (A) 0.4 k/uL (1.0-4.8); Lymphocytes % (A) 8 %; MCH 33.5 pg (25.0-35.0); MCHC 33.9 g/dL (31.0-37.0); MCV 98.8 fL (80.0-100.0); Macrocytosis Slight; Mean Platelet Volume 8.1; Monocytes # (A) 0.3 k/uL (0-1.0); Monocytes % (A) 6 %; Neutrophils # (A) 3.8 k/uL (1.3-7.7); Neutrophils % (A) 77 %; Platelet Count 151 k/uL (150-450); Poikilocytosis Moderate; RBC 2.15 m/uL (4.30-5.90); RDW 18.2 % (11.5-15.5); WBC 4.9 k/uL (3.8-10.6)
[2024-01-22 08:32] LABS: ALT 12 U/L (4-49); AST 16 U/L (17-59); African American GFR (CKD) 48 (>60 ml/min/1.73 sqM); Albumin 3.3 g/dL (3.5-5.0); Alkaline Phosphatase 40 U/L (38-126); Anion Gap 8 mmol/L; Blood Urea Nitrogen 42 mg/dL (9-20); Calcium 8.3 mg/dL (8.4-10.2); Carbon Dioxide 21 mmol/L (22-30); Chloride 108 mmol/L (98-107); Glucose 136 mg/dL (74-99); Non-African American GFR(CKD) 41 (>60 ml/min/1.73 sqM); Potassium 3.8 mmol/L (3.5-5.1); Sodium 137 mmol/L (137-145); Total Bilirubin 1.2 mg/dL (0.2-1.3); Total Protein 5.2 g/dL (6.3-8.2)
--- NOTE | 2024-01-22 10:35 | P.HPIM ---
History of Present Illness Patient pleasant 78-year-old male that had CABG in month of December came in for low hemoglobin on a regular lab check that was done in cardiothoracic surgery's office. Patient denies any blood in the stools dark stools patient denies any hematuria or hematemesis. Patient stool occult blood is positive patient is also on Eliquis for atrial fibrillation and aspirin for coronary artery disease. Gastroenterology evaluated the patient but planning on doing upper GI endoscopy and colonoscopy on Thursday. Patient received 1 unit of PRBC transfusion after which his hemoglobin went up from 6.2-7.1. Patient has elevated MCV B12 level will be obtained. Patient serum iron was 46 and ferritin was 380. REVIEW OF SYSTEMS: All other systems are negative except those mentioned in the HPI PHYSICAL EXAMINATION: GENERAL: The patient is alert and oriented x3, not in any acute distress. Well developed, well nourished. HEENT: Pupils are round and equally reacting to light. EOMI. No scleral icterus. Does have conjunctival pallor. Normocephalic, atraumatic. No pharyngeal erythema. No thyromegaly. CARDIOVASCULAR: S1 and S2 present. No murmurs, rubs, or gallops. PULMONARY: Chest is clear to auscultation, no wheezing or crackles. ABDOMEN: Soft, nontender, nondistended, normoactive bowel sounds. No palpable organomegaly. MUSCULOSKELETAL: No joint swelling or deformity. EXTREMITIES: No cyanosis, clubbing, or pedal edema. NEUROLOGICAL: Gross neurological examination did not reveal any focal deficits. SKIN: No rashes. Assessment and plan -Anemia without any evidence of acute GI bleed. Patient may have slow subacute GI bleed that cannot be ruled out at this time because of which patient will undergo upper GI endoscopy and colonoscopy. Patient does not have any overt bleeding may be able to be discharged to come back for outpatient colonoscopy and upper GI endoscopy. Will transfuse 1 more unit of PRBC. Patient has elevated MCV will obtain a B12 and folate levels may have folate deficiency or B12 deficiency. Patient does not have an iron deficiency at this time -Type 2 diabetes mellitus patient is on metformin to be discontinued patient is not a candidate for metformin because of chronic kidney disease stage III-IV rest of the diabetic medications will be continued along with sliding scale -Hypertension -Benign prostatic hypertrophy -Coronary artery disease -History of atrial fibrillation paroxysmal patient is presently sinus rhythm DVT prophylaxis: Hold off anticoagulation because of concerns of GI bleed Past Medical History Past Medical History: Cancer, Chest Pain / Angina, Diabetes Mellitus, Hypertension, Prostate Disorder Additional Past Medical History / Comment(s): prostate cancer History of Any Multi-Drug Resistant Organisms: None Reported Past Surgical History: Appendectomy, Orthopedic Surgery Additional Past Surgical History / Comment(s): Right hip replacement, bilateral cataract Past Anesthesia/Blood Transfusion Reactions: No Reported Reaction Past Psychological History: No Psychological Hx Reported Smoking Status: Former smoker Past Alcohol Use History: None Reported Past Drug Use History: None Reported - Past Family History Father Family Medical History: Coronary Artery Disease (CAD) Additional Family Medical History / Comment(s): from an aneurysm Mother Family Medical History: Cancer Medications and Allergies Home Medications Medication Instructions Recorded Confirmed Type metFORMIN HCL 1,000 mg PO BID 03/18/23 01/22/24 History Timolol 0.5% Ophth Soln [Timoptic 1 drop BOTH EYES BID 12/24/23 01/22/24 History 0.5% Ophth Soln] glipiZIDE XL [Glucotrol XL] 5 mg PO DAILY 12/24/23 01/22/24 History Apixaban [Eliquis] 5 mg PO BID #60 tab 01/01/24 01/22/24 Rx Aspirin 81 mg PO DAILY #30 tab 01/01/24 01/22/24 Rx Atorvastatin [Lipitor] 40 mg PO DAILY #30 tab 01/01/24 01/22/24 Rx Dapagliflozin Propanediol [Farxiga] 10 mg PO DAILY #30 tab 01/01/24 01/22/24 Rx Isosorbide Mononitrate ER [Imdur] 30 mg PO DAILY #30 tab 01/01/24 01/22/24 Rx Amiodarone [Cordarone] 200 mg PO DAILY 01/22/24 01/22/24 History Metoprolol Tartrate [Lopressor] 12.5 mg PO BID 01/22/24 01/22/24 History hydrALAZINE HCL [Apresoline] 25 mg PO TID 01/22/24 01/22/24 History Allergies Allergy/AdvReac Type Severity Reaction Status Date / Time Penicillins Allergy Unknown Verified 01/22/24 08:56 Childhood Physical Exam Vitals: Vital Signs Temp Pulse Resp BP Pulse Ox 01/22/24 10:28 67 18 146/67 96 08/02/24 06:12 81 18 149/70 97 01/22/24 03:59 98.6 F 90 16 132/86 94 L 01/22/24 02:54 77 16 132/66 97 01/22/24 01:21 99.5 F 81 16 124/65 97 01/22/24 01:01 99.1 F 83 16 135/69 96 01/22/24 00:51 98.7 F 84 16 144/71 97 01/22/24 00:18 78 17 130/78 96 01/21/24 22:58 79 16 146/67 98 01/21/24 18:59 98.3 F 68 18 108/58 99 Intake and Output 01/21/24 01/22/24 01/22/24 22:59 06:59 14:59 Intake Total 310 Balance 310 Intake: Blood Product 310 Rc As-1 Unit 310 [id number] Other: Weight 94.347 kg Results CBC & Chem 7: 01/22/24 07:26 01/22/24 07:26 Labs: Abnormal Lab Results - Last 24 Hours (Table) 01/21/24 01/21/24 01/21/24 Range/Units 19:10 19:10 23:20 RBC 1.88 L (4.30-5.90) m/uL Hgb 6.1 L* D (13.0-17.5) gm/dL Hct 19.1 L* (39.0-53.0) % MCV 101.8 H (80.0-100.0) fL RDW 17.7 H (11.5-15.5) % Lymphocytes # 0.4 L (1.0-4.8) k/uL Sodium 136 L (137-145) mmol/L Chloride (98-107) mmol/L Carbon Dioxide 18 L (22-30) mmol/L BUN 45 H (9-20) mg/dL Creatinine 1.72 H (0.66-1.25) mg/dL Glucose 141 H (74-99) mg/dL Calcium (8.4-10.2) mg/dL AST (17-59) U/L Total Protein 5.6 L (6.3-8.2) g/dL Albumin (3.5-5.0) g/dL Crossmatch See Detail 01/22/24 01/22/24 Range/Units 07:26 07:26 RBC 2.15 L (4.30-5.90) m/uL Hgb 7.2 L (13.0-17.5) gm/dL Hct 21.3 L (39.0-53.0) % MCV (80.0-100.0) fL RDW 18.2 H (11.5-15.5) % Lymphocytes # 0.4 L (1.0-4.8) k/uL Sodium (137-145) mmol/L Chloride 108 H (98-107) mmol/L Carbon Dioxide 21 L (22-30) mmol/L BUN 42 H (9-20) mg/dL Creatinine 1.56 H (0.66-1.25) mg/dL Glucose 136 H (74-99) mg/dL Calcium 8.3 L (8.4-10.2) mg/dL AST 16 L (17-59) U/L Total Protein 5.2 L (6.3-8.2) g/dL Albumin 3.3 L (3.5-5.0) g/dL Crossmatch
[2024-01-22] MEDS: ISOSORBIDE MONONITRATE ER 30 MG TAB.ER.24H PO SCH (10:57)
[2024-01-22] MEDS: AMIODARONE 200 MG TAB PO SCH (10:57)
[2024-01-22] MEDS: glipiZIDE 5 MG TAB PO SCH (10:57)
[2024-01-22] MEDS: DAPAGLIFLOZIN PROPANEDIOL 10 MG TABLET PO SCH (10:57)
[2024-01-22] MEDS: hydrALAZINE HCL 25 MG TAB PO SCH (10:57)
--- NOTE | 2024-01-22 11:40 | P.DS ---
Providers Date of admission: 01/21/24 23:44 Attending physician: Lina Rod MD Consults: 01/21/24 23:41 Consult Physician Urgent Consulting Provider: Yvette Swain Consult Reason/Comments: gi bleed Do you want consulting provider notified?: Yes, Notify in am Primary care physician: Ton Addison [facility] Course: Patient pleasant 78-year-old male evaluation for CABG. came in for low hem oglobin on a regular lab check that was done in cardiothoracic surgery's office. Patient denies any blood in the stools dark stools patient denies any hematuria or hematemesis. Patient stool occult blood is positive patient is also on Eliquis for atrial fibrillation and aspirin for coronary artery disease. Gastroenterology evaluated the patient but planning on doing upper GI endoscopy and colonoscopy on Thursday. Patient received 1 unit of PRBC transfusion after which his hemoglobin went up from 6.2-7.1. Patient has elevated MCV B12 level will be obtained. Patient serum iron was 46 and ferritin was 380. REVIEW OF SYSTEMS: All other systems are negative except those mentioned in the HPI PHYSICAL EXAMINATION: GENERAL: The patient is alert and oriented x3, not in any acute distress. Well developed, well nourished. HEENT: Pupils are round and equally reacting to light. EOMI. No scleral icterus. Does have conjunctival pallor. Normocephalic, atraumatic. No pharyngeal erythema. No thyromegaly. CARDIOVASCULAR: S1 and S2 present. No murmurs, rubs, or gallops. PULMONARY: Chest is clear to auscultation, no wheezing or crackles. ABDOMEN: Soft, nontender, nondistended, normoactive bowel sounds. No palpable organomegaly. MUSCULOSKELETAL: No joint swelling or deformity. EXTREMITIES: No cyanosis, clubbing, or pedal edema. NEUROLOGICAL: Gross neurological examination did not reveal any focal deficits. SKIN: No rashes. Assessment and plan -Anemia without any evidence of acute GI bleed. Patient may have slow subacute GI bleed that cannot be ruled out at this time because of which patient will undergo upper GI endoscopy and colonoscopy. Patient does not have any overt bleeding may be able to be discharged to come back for outpatient colonoscopy and upper GI endoscopy. Will transfuse 1 more unit of PRBC. Patient has elevated MCV will obtain a B12 and folate levels may have folate deficiency or B12 deficiency. Patient does not have an iron deficiency at this time -Type 2 diabetes mellitus patient is on metformin to be discontinued patient is not a candidate for metformin because of chronic kidney disease stage III-IV rest of the diabetic medications will be continued along with sliding scale -Hypertension -Benign prostatic hypertrophy -Coronary artery disease -History of atrial fibrillation paroxysmal patient is presently sinus rhythm Patient will be discharged today to follow-up with gastroenterology as an outpatient. Patient may have B12 deficiency or folate deficiency these labs do not be available today because of which I will give him an injection of B12 along with B12 and folate oral supplementation. Patient will undergo outpatient colonoscopy and upper GI endoscopy on Thursday to [facility] (formerly [facility] Patient Eliquis will be held but with patient can continue his aspirin Patient Condition at Discharge: Serious Plan - Discharge Summary New Discharge Prescriptions: No Action metFORMIN HCL 1,000 mg PO BID Timolol 0.5% Ophth Soln [Timoptic 0.5% Ophth Soln] 1 drop BOTH EYES BID Aspirin 81 mg PO DAILY #30 tab Apixaban [Eliquis] 5 mg PO BID #60 tab Isosorbide Mononitrate ER [Imdur] 30 mg PO DAILY #30 tab hydrALAZINE HCL [Apresoline] 25 mg PO TID glipiZIDE XL [Glucotrol XL] 5 mg PO DAILY Dapagliflozin Propanediol [Farxiga] 10 mg PO DAILY #30 tab Atorvastatin [Lipitor] 40 mg PO DAILY #30 tab Metoprolol Tartrate [Lopressor] 12.5 mg PO BID Amiodarone [Cordarone] 200 mg PO DAILY Discharge Medication List metFORMIN HCL 1,000 mg PO BID 03/18/23 [History] Timolol 0.5% Ophth Soln [Timoptic 0.5% Ophth Soln] 1 drop BOTH EYES BID 12/24/23 [History] glipiZIDE XL [Glucotrol XL] 5 mg PO DAILY 12/24/23 [History] Apixaban [Eliquis] 5 mg PO BID #60 tab 01/01/24 [Rx] Aspirin 81 mg PO DAILY #30 tab 01/01/24 [Rx] Atorvastatin [Lipitor] 40 mg PO DAILY #30 tab 01/01/24 [Rx] Dapagliflozin Propanediol [Farxiga] 10 mg PO DAILY #30 tab 01/01/24 [Rx] Isosorbide Mononitrate ER [Imdur] 30 mg PO DAILY #30 tab 01/01/24 [Rx] Amiodarone [Cordarone] 200 mg PO DAILY 01/22/24 [History] Metoprolol Tartrate [Lopressor] 12.5 mg PO BID 01/22/24 [History] hydrALAZINE HCL [Apresoline] 25 mg PO TID 01/22/24 [History] Follow up Appointment(s)/Referral(s): Ton Nash DO [Primary Care Provider] - 3 Days Discharge Disposition: HOME SELF-CARE
[2024-01-22] MEDS: INSULIN ASPART (NovoLOG) 100 UNIT/ML VIAL SQ SCH (12:06)
[2024-01-22 12:17] LABS: Glucose,Whole Blood 175 mg/dL (70-110)
--- NOTE | 2024-01-22 12:58 | P.CONS ---
History of Present Illness - Reason for Consult Consult date: 01/22/24 GI bleed Requesting physician: Arcelia Mohamud - Chief Complaint Low hemoglobin - History of Present Illness Is a pleasant 78-year-old male with a past medical history including coronary artery disease, heart failure, prostate cancer diabetes mellitus and hypertension who was directed to come to the emergency department by his cardiothoracic surgeon Dr. Das. Patient is scheduled to undergo CABG and possible of valve replacement on 01/27/2024. He was having preop blood work done and was noted to have a hemoglobin of 6.2 and was called and told to come to the emergency department for further evaluation and received blood. Hemoglobin was 6.1 on admission, he received 1 unit of blood with a repeat hemoglobin today of 7.2. He is on anticoagulation with Eliquis 5 mg twice daily also takes a 81 mg aspirin daily. Last dose of Eliquis was yesterday. He denies any previous history of EGD or colonoscopy. Denies any regular NSAID use. No history of peptic ulcer disease. Denies any blood or black stool. No abdominal pain, nausea or vomiting. Stool occult positive. Review of Systems REVIEW OF SYSTEMS: CARDIOPULMONARY: No chest pain or shortness of breath. Gastrointestinal: No abdominal pain. No nausea or vomiting. No hematemesis, coffee-ground emesis. No rectal bleeding, or melena. GENITOURINARY: No dysuria or hematuria. MUSCULOSKELETAL: Reports normal range of motion. SKIN: No rashes. No jaundice. ENDOCRINE: No chills, fevers. No excessive weight gain or loss. No polydipsia or polyuria. PSYCHIATRIC: Unremarkable. NEUROLOGY: No change in mental status. Denies dizziness, headache. ENT: Vision unremarkable. CONSTITUTIONAL: No recent weight loss. No fever, chills, night sweats. Past Medical History Past Medical History: Cancer, Chest Pain / Angina, Diabetes Mellitus, Hypertension, Prostate Disorder Additional Past Medical History / Comment(s): prostate cancer History of Any Multi-Drug Resistant Organisms: None Reported Past Surgical History: Appendectomy, Orthopedic Surgery Additional Past Surgical History / Comment(s): Right hip replacement, bilateral cataract Past Anesthesia/Blood Transfusion Reactions: No Reported Reaction Past Psychological History: No Psychological Hx Reported Smoking Status: Former smoker Past Alcohol Use History: None Reported Past Drug Use History: None Reported - Past Family History Father Family Medical History: Coronary Artery Disease (CAD) Additional Family Medical History / Comment(s): from an aneurysm Mother Family Medical History: Cancer Medications and Allergies Home Medications Medication Instructions Recorded Confirmed Type Timolol 0.5% Ophth Soln [Timoptic 1 drop BOTH EYES BID 12/24/23 01/22/24 History 0.5% Ophth Soln] Aspirin 81 mg PO DAILY #30 tab 01/01/24 01/22/24 Rx Atorvastatin [Lipitor] 40 mg PO DAILY #30 tab 01/01/24 01/22/24 Rx Dapagliflozin Propanediol [Farxiga] 10 mg PO DAILY #30 tab 01/01/24 01/22/24 Rx Isosorbide Mononitrate ER [Imdur] 30 mg PO DAILY #30 tab 01/01/24 01/22/24 Rx Amiodarone [Cordarone] 200 mg PO DAILY 01/22/24 01/22/24 History Apixaban [Eliquis] 5 mg PO BID #60 tab 01/22/24 01/22/24 Rx Folic Acid-Vit B Complex-Vit C 1 each PO DAILY #30 cap 01/22/24 Rx [Nephrocaps] Metoprolol Tartrate [Lopressor] 12.5 mg PO BID 01/22/24 01/22/24 History glipiZIDE XL [Glucotrol XL] 5 mg PO BID #0 01/22/24 01/22/24 Rx hydrALAZINE HCL [Apresoline] 25 mg PO TID 01/22/24 01/22/24 History Allergies Allergy/AdvReac Type Severity Reaction Status Date / Time Penicillins Allergy Unknown Verified 01/22/24 08:56 Childhood Physical Exam Vitals: Vital Signs Temp Pulse Resp BP Pulse Ox 01/22/24 06:12 81 18 149/70 97 01/22/24 03:59 98.6 F 90 16 132/86 94 L 01/22/24 02:54 77 16 132/66 97 01/22/24 01:21 99.5 F 81 16 124/65 97 01/22/24 01:01 99.1 F 83 16 135/69 96 01/22/24 00:51 98.7 F 84 16 144/71 97 01/22/24 00:18 78 17 130/78 96 01/21/24 22:58 79 16 146/67 98 01/21/24 18:59 98.3 F 68 18 108/58 99 Intake and Output 01/21/24 01/21/24 01/22/24 14:59 22:59 06:59 Intake Total 310 Balance 310 Intake: Blood Product 310 Rc As-1 Unit 310 [id number] Other: Weight 94.347 kg General appearance: The patient is alert, oriented, appears in no acute distress. HET: Head is normocephalic and atraumatic. Conjunctiva pink. Sclera anicteric. Neck: Supple without lymphadenopathy. Trachea midline. Heart: Regular. Lungs: Equal expansion, normal respiratory effort. Abdomen: Soft, nontender, nondistended. Skin: No rashes. No jaundice. Extremities: Normal skin color and turgor. Lower extremity edema. Neurological: No focal deficits. Alert and oriented x3. Results CBC & Chem 7: 01/22/24 07:26 01/22/24 07:26 Labs: Abnormal Lab Results - Last 24 Hours (Table) 01/21/24 01/21/24 01/21/24 Range/Units 19:10 19:10 23:20 RBC 1.88 L (4.30-5.90) m/uL Hgb 6.1 L* D (13.0-17.5) gm/dL Hct 19.1 L* (39.0-53.0) % MCV 101.8 H (80.0-100.0) fL RDW 17.7 H (11.5-15.5) % Lymphocytes # 0.4 L (1.0-4.8) k/uL Sodium 136 L (137-145) mmol/L Carbon Dioxide 18 L (22-30) mmol/L BUN 45 H (9-20) mg/dL Creatinine 1.72 H (0.66-1.25) mg/dL Glucose 141 H (74-99) mg/dL Total Protein 5.6 L (6.3-8.2) g/dL Crossmatch See Detail Assessment and Plan (1) Normochromic normocytic anemia Narrative/Plan: 78-year-old male having workup for scheduled outpatient coronary artery bypass graft and possible valve replacement with Dr. Das was noted to have severe anemia with a hemoglobin of 6.2. He does take anticoagulation for his coronary artery disease, last taken yesterday. Unclear etiology, patient stool was occult positive and need to consider possible GI source of blood loss. Patient has no history of previous upper or lower endoscopy. Recommend holding Eliquis and plan for EGD colonoscopy on Thursday. Current Visit: Yes Status: Acute Code(s): D64.9 - ANEMIA, UNSPECIFIED SNOMED Code(s): 31544335 (2) Fecal occult blood test positive Current Visit: Yes Status: Acute Code(s): R19.5 - OTHER FECAL ABNORMALITIES SNOMED Code(s): 49626307 (3) Coronary artery disease Current Visit: Yes Status: Acute Code(s): I25.10 - ATHSCL HEART DISEASE OF [place] CORONARY ARTERY W/O ANG PCTRS SNOMED Code(s): 44474548 (4) History of prostate cancer Current Visit: Yes Status: Acute Code(s): Z85.46 - PERSONAL HISTORY OF MALIGNANT NEOPLASM OF PROSTATE SNOMED Code(s): 429478390 (5) Diabetes mellitus Current Visit: Yes Status: Acute Code(s): E11.9 - TYPE 2 DIABETES MELLITUS WITHOUT COMPLICATIONS SNOMED Code(s): 32989373 Plan: 1. Continue symptomatic and supportive care 2. Patient received 1 unit of blood, recommend second unit prior to discharge 3. Diet as tolerated 4. Hold Eliquis, may continue aspirin 81 mg daily 5. Avoid NSAIDs 6. Protonix 40 mg daily for GI prophylaxis 7. Patient without any noted active bleeding. Recommend EGD and colonoscopy on Thursday, this certainly can be done as an outpatient. Patient will be scheduled for EGD and colonoscopy on 01/25/2024 at [facility]. Gastroenterology office will contact patient and for further instructions and prep. Thank you for this consultation, patient is cleared from gastroenterology for discharge. Dr. Jose Alejandro Swain I agree with the dictator's note, documented as a scribe by Nisreen Pruett.
[2024-01-22] MEDS: PANTOPRAZOLE 40 MG TABLET PO SCH (13:09)
[2024-01-22] MEDS: CYANOCOBALAMIN 1,000 MCG/ML 1 ML VIAL IM ONE (13:20)
[2024-01-22 15:07] LABS: Anisocytosis Slight; Basophils % (A) 0 %; Eosinophils # (A) 0.4 k/uL (0-0.7); Eosinophils % (A) 9 %; HCT 23.3 % (39.0-53.0); HGB 7.7 gm/dL (13.0-17.5); Hypochromasia Moderate; Lymphocytes # (A) 0.4 k/uL (1.0-4.8); Lymphocytes % (A) 7 %; MCH 31.9 pg (25.0-35.0); MCHC 32.9 g/dL (31.0-37.0); MCV 96.9 fL (80.0-100.0); Macrocytosis Slight; Mean Platelet Volume 7.7; Monocytes # (A) 0.3 k/uL (0-1.0); Monocytes % (A) 6 %; Neutrophils % (A) 77 %; Platelet Count 160 k/uL (150-450); Poikilocytosis Moderate; RDW 17.8 % (11.5-15.5); WBC 5.2 k/uL (3.8-10.6)
[2024-01-22 17:45] LABS: Glucose,Whole Blood 166 mg/dL (70-110)
[2024-01-22] MEDS: METOPROLOL TARTRATE 12.5 MG TAB PO SCH (20:54)
[2024-01-22] MEDS: TIMOLOL 0.5% OPHTH DROPS 5 ML BTL BOTH EYES SCH (21:55)
[2024-01-23 02:07] VITALS: RESP 16
[2024-01-23 05:56] LABS: Glucose,Whole Blood 148 mg/dL (70-110)
[2024-01-23] MEDS: ATORVASTATIN 40 MG TAB PO SCH (08:28)
[2024-01-23 11:31] LABS: Glucose,Whole Blood 188 mg/dL (70-110)
[2024-01-23 12:08] LABS: Anisocytosis Slight; Basophils % (A) 0 %; Eosinophils # (A) 0.4 k/uL (0-0.7); Eosinophils % (A) 8 %; HCT 22.4 % (39.0-53.0); HGB 7.5 gm/dL (13.0-17.5); Hypochromasia Moderate; Lymphocytes # (A) 0.4 k/uL (1.0-4.8); Lymphocytes % (A) 8 %; MCH 32.5 pg (25.0-35.0); MCHC 33.5 g/dL (31.0-37.0); MCV 96.9 fL (80.0-100.0); Macrocytosis Slight; Mean Platelet Volume 7.4; Monocytes # (A) 0.3 k/uL (0-1.0); Monocytes % (A) 6 %; Neutrophils % (A) 77 %; Platelet Count 161 k/uL (150-450); Poikilocytosis Moderate; RBC 2.31 m/uL (4.30-5.90); RDW 17.7 % (11.5-15.5); WBC 5.1 k/uL (3.8-10.6)
[2024-01-23 12:13] LABS: African American GFR (CKD) 59 (>60 ml/min/1.73 sqM); Anion Gap 6 mmol/L; Blood Urea Nitrogen 28 mg/dL (9-20); Carbon Dioxide 21 mmol/L (22-30); Chloride 109 mmol/L (98-107); Glucose 137 mg/dL (74-99); Non-African American GFR(CKD) 51 (>60 ml/min/1.73 sqM); Potassium 3.8 mmol/L (3.5-5.1); Sodium 136 mmol/L (137-145)
[2024-01-23 13:15] VITALS: BP 124/69; PULSE 68; TEMP 98.1
[2024-01-23 13:37] VITALS: BMI 30.8
--- NOTE | 2024-01-24 08:55 | P.DS ---
Providers Date of admission: 01/21/24 23:44 Attending physician: Lina Rod MD Consults: 01/21/24 23:41 Consult Physician Urgent Consulting Provider: Yvette Swain Consult Reason/Comments: gi bleed Do you want consulting provider notified?: Yes, Notify in am Primary care physician: [facility] Course: Final Diagnosis -Anemia without any evidence of acute GI bleed. Patient may have slow subacute GI bleed that cannot be ruled out at this time because of which patient will undergo upper GI endoscopy and colonoscopy. Patient does not have any overt bleeding may be able to be discharged to come back for outpatient colonoscopy and upper GI endoscopy. Will transfuse 1 more unit of PRBC. Patient has elevated MCV will obtain a B12 and folate levels may have folate deficiency or B12 deficiency. Patient does not have an iron deficiency at this time -Type 2 diabetes mellitus patient is on metformin to be discontinued patient is not a candidate for metformin because of chronic kidney disease stage III-IV rest of the diabetic medications will be continued along with sliding scale -Hypertension -Benign prostatic hypertrophy -Coronary artery disease -History of atrial fibrillation paroxysmal patient is presently sinus rhythm -Chronic kidney disease stage III-IV Discharge Disposition Patient stable for discharge home with overall guarded prognosis. Patient has been transfused 2 units of packed red blood cells and hemoglobin is now up to 7.5. He was monitored overnight, orthostatic blood pressures have been negative. Plan is for discharge home follow-up Thursday at [facility] for his scheduled outpatient EGD and colonoscopy with Dr. Jose Alejandro Swain. Patient advised to follow-up with his cardiothoracic surgeon on Thursday as he is scheduled to have open heart surgery on Thursday. Prescription for repeat blood work in 2 to 3 days. Hospital Course This is a pleasant 78-year-old male with medical history of hypertension, BPH, coronary artery disease, paroxysmal A-fib anticoagulated with Eliquis, chronic kidney disease patient is scheduled for coronary artery bypass grafting on Thursday, January 26 and as part of outpatient preoperative blood work was found to have a low hemoglobin of 6.5 and was sent into the hospital for evaluation. Patient denies any known blood in the stool any melena or karen red blood. Patient did have a positive occult. Eliquis was discontinued as mentioned patient received 2 units of packed red blood cells hemoglobin the following is at 7.7 and again at 7.5 in the morning. Patient did complain of some slight dizziness when ambulating he was found to have negative orthostatic blood pressures and he is not complaining of any shortness of breath or chest discomfort. Discussed thoroughly with at the bedside and patient that he is scheduled to undergo an outpatient EGD and colonoscopy with Dr. Jose Alejandro Swain on Thursday at [facility] and would recommend to discharge home today in order to make this procedure. He was actually cleared for discharge yesterday however he wanted to stay 1 more night for monitoring and repeat hemoglobin. History as above reveals a white blood cell count of 5.1, hemoglobin 7.5, sodium 136, BUN of 21, creatinine of 1.31, blood glucose of 137, calcium 8.0. He is afebrile heart rate of 68 normal sinus rhythm, blood pressure 124 and 69 and he is 98% on room air. Lungs are clear S1-S2 auscultated abdomen is soft and nontender and he is AOx 3 he will be discharged home. Please see medication reconciliation for a list of current medications. Thank you for allowing us to participate in the care of this patient. The impression and plan of care has been dictated by Marichuy Baldwin Nurse Practitioner as directed. Dr. Eusebia MD I have performed a history and physical examination and medical decision making of this patient, discussed the same with the dictator, and agree with the dictators assessment and plan as written, documented as a scribe. Based on total visit time, I have performed more than 50% of this visit. Patient Condition at Discharge: Fair Plan - Discharge Summary Discharge Rx Participant: No New Discharge Prescriptions: New Folic Acid-Vit B Complex-Vit C [Nephrocaps] 1 each PO DAILY #30 cap Continue Timolol 0.5% Ophth Soln [Timoptic 0.5% Ophth Soln] 1 drop BOTH EYES BID Aspirin 81 mg PO DAILY #30 tab Isosorbide Mononitrate ER [Imdur] 30 mg PO DAILY #30 tab hydrALAZINE HCL [Apresoline] 25 mg PO TID Dapagliflozin Propanediol [Farxiga] 10 mg PO DAILY #30 tab Atorvastatin [Lipitor] 40 mg PO DAILY #30 tab Metoprolol Tartrate [Lopressor] 12.5 mg PO BID Amiodarone [Cordarone] 200 mg PO DAILY Apixaban [Eliquis] 5 mg PO BID #60 tab Changed glipiZIDE XL [Glucotrol XL] 5 mg PO BID #0 Discontinued metFORMIN HCL 1,000 mg PO BID Discharge Medication List Timolol 0.5% Ophth Soln [Timoptic 0.5% Ophth Soln] 1 drop BOTH EYES BID 12/24/23 [History] Aspirin 81 mg PO DAILY #30 tab 01/01/24 [Rx] Atorvastatin [Lipitor] 40 mg PO DAILY #30 tab 01/01/24 [Rx] Dapagliflozin Propanediol [Farxiga] 10 mg PO DAILY #30 tab 01/01/24 [Rx] Isosorbide Mononitrate ER [Imdur] 30 mg PO DAILY #30 tab 01/01/24 [Rx] Amiodarone [Cordarone] 200 mg PO DAILY 01/22/24 [History] Apixaban [Eliquis] 5 mg PO BID #60 tab 01/22/24 [Rx] Folic Acid-Vit B Complex-Vit C [Nephrocaps] 1 each PO DAILY #30 cap 01/22/24 [Rx] Metoprolol Tartrate [Lopressor] 12.5 mg PO BID 01/22/24 [History] glipiZIDE XL [Glucotrol XL] 5 mg PO BID #0 01/22/24 [Rx] hydrALAZINE HCL [Apresoline] 25 mg PO TID 01/22/24 [History] Follow up Appointment(s)/Referral(s): Yvette Swain MD [STAFF PHYSICIAN] - 01/25/24 Ton Nash DO [Primary Care Provider] - 3 Days Ambulatory/Diagnostic Orders: Complete Blood Count w/diff [LAB.AMB] Time Frame: 3 Days, Location: None Selected Patient Instructions/Handouts: Anemia (ED) Activity/Diet/Wound Care/Special Instructions: Follow up at [facility] for your outpatient EGD on Thursday. Start Bowel Prep as prescribed on Thursday. Repeat blood work on Thursday. Follow up with your cardiothoracic surgeon Thursday Discharge Disposition: HOME SELF-CARE
[2024-01-24] MEDS ORDERED: PEG 3350 (236 GM/BTL) + LYTES 4,000 ML BOTTLE PO ONE (17:00)
== END 2024-01-23 14:48 | disposition home or self-care (01) ==
LOC: EC 18:54 → 3SCARD 23:44
PROVIDERS: ADMIT Internal Medicine; ATTEND Internal Medicine
DX: D64.9 Anemia, unspecified (principal); R19.5 Other fecal abnormalities; E11.22 Type 2 diabetes mellitus with diabetic chronic kidney disease; N18.30 Chronic kidney disease, stage 3 unspecified; I50.9 Heart failure, unspecified; I13.0 Hypertensive heart and chronic kidney disease with heart failure and stage 1 through stage 4 chronic kidney disease, or unspecified chronic kidney disease; N40.0 Benign prostatic hyperplasia without lower urinary tract symptoms; I25.10 Atherosclerotic heart disease of native coronary artery without angina pectoris; C61 Malignant neoplasm of prostate; I48.0 Paroxysmal atrial fibrillation; Z79.84 Long term (current) use of oral hypoglycemic drugs; Z96.643 Presence of artificial hip joint, bilateral; Z95.2 Presence of prosthetic heart valve; Z95.1 Presence of aortocoronary bypass graft; Z87.891 Personal history of nicotine dependence; Z82.49 Family history of ischemic heart disease and other diseases of the circulatory system; Z79.899 Other long term (current) drug therapy; Z79.82 Long term (current) use of aspirin; Z79.01 Long term (current) use of anticoagulants
CPT/HCPCS: 36415; 86900; 86901; 80053 ×2; 80048; 82607; 85025 ×3; 86850; 86920; 82272; G0378 ×3; P9016; J3420; 36430; 96360; 96361; 96372; 99285

== ENCOUNTER 2024-01-23 22:54 | Inpatient (IN) | payer MEDICARE ==
[2024-01-23] MEDS: METOPROLOL TARTRATE 5 MG/5 ML VIAL IVP SCH (23:08)
--- NOTE | 2024-01-23 23:16 | XR ---
EXAMINATION TYPE: XR chest 1V portable DATE OF EXAM: 01/23/2024 COMPARISON: Chest x-ray December 29, 2023 HISTORY: Difficulty in breathing. TECHNIQUE: Single frontal view of the chest is obtained. FINDINGS: There are bilateral increased opacities. Suspect small left pleural effusion. The cardiac silhouette size remains within normal limits. The osseous structures are intact. IMPRESSION: Bilateral moderate edema and/or less likely acute infiltrates. Correlate for suspected f luid overload state.
[2024-01-23 23:24] LABS: ALT 18 U/L (4-49); AST 30 U/L (17-59); African American GFR (CKD) 50 (>60 ml/min/1.73 sqM); Albumin 3.7 g/dL (3.5-5.0); Alkaline Phosphatase 85 U/L (38-126); Anion Gap 11 mmol/L; Blood Urea Nitrogen 26 mg/dL (9-20); Calcium 8.3 mg/dL (8.4-10.2); Carbon Dioxide 15 mmol/L (22-30); Chloride 110 mmol/L (98-107); Glucose 324 mg/dL (74-99); Magnesium 2.2 mg/dL (1.6-2.3); Non-African American GFR(CKD) 43 (>60 ml/min/1.73 sqM); Potassium 4.2 mmol/L (3.5-5.1); Sodium 136 mmol/L (137-145); Total Bilirubin 1.1 mg/dL (0.2-1.3); Total Protein 5.7 g/dL (6.3-8.2)
[2024-01-23 23:31] LABS: Partial Thromboplastin Time 23.6 sec (22.0-30.0); Prothrombin Time 11.1 sec (10.0-12.5)
[2024-01-23 23:33] LABS: NT-Pro-B-Type Natriuretic Pept 2350 pg/mL
--- NOTE | 2024-01-24 00:05 | ED ---
General Adult HPI - General Chief complaint: Shortness of Breath Stated complaint: Respritory distress Time Seen by Provider: 01/23/24 22:58 Source: patient, EMS, RN notes reviewed, old records reviewed Mode of arrival: EMS - History of Present Illness Initial comments: Patient is an 78-year-old male who presents emergency department complaining of shortness of breath. Patient states it was somewhat sudden onset today. Began experiencing shortness of breath. Was found to be saturating the 70% at home. Has a history of paroxysmal atrial fibrillation with RVR, angina, CAD, hypertension. Recently also found to be anemic. Is being worked up outpatient for source of anemia. Patient is also holding his blood thinners at home. There is consideration for possible CABG. Presents for further evaluation at this time. Patient was placed on CPAP prior to arrival by EMS. Did improve on this. Endorses lower extremity pitting edema. Presents for further evaluation at this time. Denies significant fever, chills, cough. - Related Data Home Medications Medication Instructions Recorded Confirmed Timolol 0.5% Ophth Soln [Timoptic 1 drop BOTH EYES BID 12/24/23 01/22/24 0.5% Ophth Soln] Amiodarone [Cordarone] 200 mg PO DAILY 01/22/24 01/22/24 Metoprolol Tartrate [Lopressor] 12.5 mg PO BID 01/22/24 01/22/24 hydrALAZINE HCL [Apresoline] 25 mg PO TID 01/22/24 01/22/24 Previous Rx's Medication Instructions Recorded Aspirin 81 mg PO DAILY #30 tab 01/01/24 Atorvastatin [Lipitor] 40 mg PO DAILY #30 tab 01/01/24 Dapagliflozin Propanediol [Farxiga] 10 mg PO DAILY #30 tab 01/01/24 Isosorbide Mononitrate ER [Imdur] 30 mg PO DAILY #30 tab 01/01/24 Apixaban [Eliquis] 5 mg PO BID #60 tab 01/22/24 Folic Acid-Vit B Complex-Vit C 1 each PO DAILY #30 cap 01/22/24 [Nephrocaps] glipiZIDE XL [Glucotrol XL] 5 mg PO BID #0 01/22/24 Allergies Allergy/AdvReac Type Severity Reaction Status Date / Time Penicillins Allergy Unknown Verified 01/22/24 08:56 Childhood Review of Systems ROS Statement: Those systems with pertinent positive or pertinent negative responses have been documented in the HPI. ROS Other: All systems not noted in ROS Statement are negative. Past Medical History Past Medical History: Cancer, Chest Pain / Angina, Diabetes Mellitus, Hypertension, Prostate Disorder Additional Past Medical History / Comment(s): prostate cancer History of Any Multi-Drug Resistant Organisms: None Reported Past Surgical History: Appendectomy, Orthopedic Surgery Additional Past Surgical History / Comment(s): Right hip replacement, bilateral cataract Past Anesthesia/Blood Transfusion Reactions: No Reported Reaction Past Psychological History: No Psychological Hx Reported Smoking Status: Former smoker Past Alcohol Use History: None Reported Past Drug Use History: None Reported - Past Family History Father Family Medical History: Coronary Artery Disease (CAD) Additional Family Medical History / Comment(s): from an aneurysm Mother Family Medical History: Cancer Course Vital Signs 01/23/24 01/23/24 01/24/24 22:56 23:00 00:24 Temperature 99.6 F Pulse Rate 123 H 122 H Respiratory 37 H 32 H Rate Blood Pressure 114/79 98/57 O2 Sat by Pulse 99 100 Oximetry Fraction of 40 Inspired Oxygen (FIO2) 01/24/24 00:46 Temperature Pulse Rate 106 H Respiratory 28 H Rate Blood Pressure 112/71 O2 Sat by Pulse 100 Oximetry Fraction of Inspired Oxygen (FIO2) Medical Decision Making - Medical Decision Making Was pt. sent in by a medical professional or institution (, PA, WOODWORKING MACHINE OFFBEARER, urgent care, hospital, or residential...) When possible be specific @ -No Did you speak to anyone other than the patient for history (EMS, parent, family, police, friend...)? What history was obtained from this source @ -No Did you review nursing and triage notes (agree or disagree)? Why? @ -I reviewed and agree with nursing and triage notes Were old charts reviewed (outside hosp., previous admission, EMS record, old EKG, old radiological studies, urgent care reports/EKG's, residential records)? Report findings @ -Reviewed EMR which showed patient was just discharged yesterday for incidental finding of anemia. Plan is for workup with Dr. Reyna in the outpatient setting doing EGD and colonoscopy this upcoming Thursday. Differential Diagnosis (chest pain, altered mental status, abdominal pain women, abdominal pain men, vaginal bleeding, weakness, fever, dyspnea, syncope, headache, dizziness, GI bleed, back pain, seizure, CVA, palpatations, mental health, musculoskeletal)? @ -Differential Dyspnea: Coronary syndrome, arrhythmia, tamponade, asthma, COPD, pulmonary embolism, pneumonia, pneumothorax, pulmonary effusion, anaphylaxis, diabetic ketoacidosis, flailed chest, pulmonary contusion, diaphragmatic rupture, anemia, neuromuscular, this is not meant to be an all-inclusive list. EKG interpreted by me (3pts min.). @ -As above X-rays interpreted by me (1pt min.). @ -Chest x-ray shows bilateral pulmonary vascular congestion. CT interpreted by me (1pt min.). @ -None done U/S interpreted by me (1pt. min.). @ -None done What testing was considered but not performed or refused? (CT, X-rays, U/S, labs)? Why? @ -None What meds were considered but not given or refused? Why? @ -None Did you discuss the management of the patient with other professionals (professionals i.e. , PA, WOODWORKING MACHINE OFFBEARER, lab, RT, psych nurse, social work instructor, business technology architect, teacher, safety instruction police officer, wrapper caser)? Give summary @ -Discussed with admitting provider, Dr. Rod who accepted the admission. Was smoking cessation discussed for >3mins.? @ -No Was critical care preformed (if so, how long)? @ -Yes, 41 minutes. Were there social determinants of health that impacted care today? How? (Homelessness, low income, unemployed, alcoholism, drug addiction, transportation, low edu. Level, literacy, decrease access to med. care, shelter, rehab)? @ -No Was there de-escalation of care discussed even if they declined (Discuss DNR or withdrawal of care, Hospice)? DNR status @ -No What co-morbidities impacted this encounter? (DM, HTN, Smoking, COPD, CAD, Cancer, CVA, ARF, Chemo, Hep., AIDS, mental health diagnosis, sleep apnea, morbid obesity)? @ -Atrial fibrillation, CHF, CAD Was patient admitted / discharged? Hospital course, mention meds given and route, prescriptions, significant lab abnormalities, going to OR and other pertinent info. @ -Patient presents complaining of dyspnea. Began at home. Found to be hypoxic in the 70% per EMS. Presents for further evaluation. Was transition to BiPAP from CPAP upon arrival. Patient has increased work of breathing but overall saturations are within acceptable limits. Will continue to monitor. Patient is acutely in A-fib with RVR. Blood pressure within acceptable limits. He symptomatically treated for A-fib with RVR with IV pushes of metoprolol. He did respond to the metoprolol and heart rates were consistently below 110 bpm down from 160 bpm. Patient was loaded with 25 mg of oral metoprolol at this time. Bedside ultrasound performed by myself does show B-lines in bilateral lung bowling concerning for fluid overload state in the lungs. EKG shows A-fib with RVR without any evidence of acute ischemia.For reveals bilateral pulmonary vascular congestion concerning for CHF. Laboratory studies remarkable for anemia although hemoglobin is improved from yesterday. Currently 9.3. Patient's lactic acid is 3.1 and I suspect this is likely secondary to the hypoxic episode at home. Will continue to monitor. Troponin undetectable. BNP is elevated to 2300. Vital signs within acceptable limits. Following 3 pushes of 2.5 mg IV metoprolol and a loading dose at 25 mg, patient's heart rate is now consistently between 90 and 110 bpm. Blood pressure stable. Work of breathing and hypoxia are improved on BiPAP. Discussed results with patient as well as family members. He will be admitted to the hospital at this time. Cardiology will be consulted as well pulmonology. Will continue the patient on BiPAP at this time. Patient initiated on Lasix therapy. Given 40 mg of then start on 40 mg twice daily. Other home medications will be restarted except for the blood thinners and aspirin which are being held at this time due to the concern for GI bleeding and the workup that will be done next Thursday. I will continue to hold these at this time. They were in agreement this plan. I spoke with family that the CHF exacerbation could be probably factorial, including the A-fib with RVR possibly mixed with the recent blood transfusions which could have made him overloaded. Will continue to monitor. I spoke with Dr. Rod of [facility] who accepted the admission. Undiagnosed new problem with uncertain prognosis? @ -No Drug Therapy requiring intensive monitoring for toxicity (Heparin, Nitro, Insulin, Cardizem)? @ -No Were any procedures done? @ -No Diagnosis/symptom? @ -Acute hypoxic respiratory failure requiring BiPAP likely secondary to CHF exacerbation and A-fib with RVR Acute, or Chronic, or Acute on Chronic? @ -Acute Uncomplicated (without systemic symptoms) or Complicated (systemic symptoms)? @ -Complicated Side effects of treatment? @ -None Exacerbation, Progression, or Severe Exacerbation] @ -No Poses a threat to life or bodily function? @ -Yes - Lab Data Result diagrams: 01/23/24 22:54 01/23/24 22:54 Lab Results 01/23/24 01/23/24 01/23/24 Range/Units 22:54 22:54 22:54 WBC 8.5 (3.8-10.6) k/uL RBC 2.92 L (4.30-5.90) m/uL Hgb 9.3 L D (13.0-17.5) gm/dL Hct 29.1 L (39.0-53.0) % MCV 99.6 (80.0-100.0) fL MCH 32.0 (25.0-35.0) pg MCHC 32.1 (31.0-37.0) g/dL RDW 18.5 H (11.5-15.5) % Plt Count 202 (150-450) k/uL MPV 8.3 Neutrophils % 79 % Lymphocytes % 8 % Monocytes % 6 % Eosinophils % 6 % Basophils % 0 % Neutrophils # 6.7 (1.3-7.7) k/uL Lymphocytes # 0.7 L (1.0-4.8) k/uL Monocytes # 0.5 (0-1.0) k/uL Eosinophils # 0.5 (0-0.7) k/uL Basophils # 0.0 (0-0.2) k/uL Hypochromasia Marked Poikilocytosis Moderate Anisocytosis Slight Macrocytosis Moderate PT 11.1 (10.0-12.5) sec INR 1.0 (<1.2) APTT 23.6 (22.0-30.0) sec Sodium 136 L (137-145) mmol/L Potassium 4.2 (3.5-5.1) mmol/L Chloride 110 H (98-107) mmol/L Carbon Dioxide 15 L (22-30) mmol/L Anion Gap 11 mmol/L BUN 26 H (9-20) mg/dL Creatinine 1.52 H (0.66-1.25) mg/dL Est GFR (CKD-EPI)AfAm 50 (>60 ml/min/1.73 sqM) Est GFR (CKD-EPI)NonAf 43 (>60 ml/min/1.73 sqM) Glucose 324 H (74-99) mg/dL Plasma Lactic Acid Mitul (0.7-2.0) mmol/L Calcium 8.3 L (8.4-10.2) mg/dL Magnesium 2.2 (1.6-2.3) mg/dL Total Bilirubin 1.1 (0.2-1.3) mg/dL AST 30 (17-59) U/L ALT 18 (4-49) U/L Alkaline Phosphatase 85 (38-126) U/L Troponin I (0.000-0.034) ng/mL NT-Pro-B Natriuret Pep 2350 pg/mL Total Protein 5.7 L (6.3-8.2) g/dL Albumin 3.7 (3.5-5.0) g/dL Influenza Type A (PCR) (Not Detectd) Influenza Type B (PCR) (Not Detectd) RSV (PCR) (Not Detectd) SARS-CoV-2 (PCR) (Not Detectd) 01/23/24 01/23/24 01/23/24 Range/Units 22:54 22:54 23:16 WBC (3.8-10.6) k/uL RBC (4.30-5.90) m/uL Hgb (13.0-17.5) gm/dL Hct (39.0-53.0) % MCV (80.0-100.0) fL MCH (25.0-35.0) pg MCHC (31.0-37.0) g/dL RDW (11.5-15.5) % Plt Count (150-450) k/uL MPV Neutrophils % % Lymphocytes % % Monocytes % % Eosinophils % % Basophils % % Neutrophils # (1.3-7.7) k/uL Lymphocytes # (1.0-4.8) k/uL Monocytes # (0-1.0) k/uL Eosinophils # (0-0.7) k/uL Basophils # (0-0.2) k/uL Hypochromasia Poikilocytosis Anisocytosis Macrocytosis PT (10.0-12.5) sec INR (<1.2) APTT (22.0-30.0) sec Sodium (137-145) mmol/L Potassium (3.5-5.1) mmol/L Chloride (98-107) mmol/L Carbon Dioxide (22-30) mmol/L Anion Gap mmol/L BUN (9-20) mg/dL Creatinine (0.66-1.25) mg/dL Est GFR (CKD-EPI)AfAm (>60 ml/min/1.73 sqM) Est GFR (CKD-EPI)NonAf (>60 ml/min/1.73 sqM) Glucose (74-99) mg/dL Plasma Lactic Acid Mitul 3.1 H* (0.7-2.0) mmol/L Calcium (8.4-10.2) mg/dL Magnesium (1.6-2.3) mg/dL Total Bilirubin (0.2-1.3) mg/dL AST (17-59) U/L ALT (4-49) U/L Alkaline Phosphatase (38-126) U/L Troponin I <0.012 (0.000-0.034) ng/mL NT-Pro-B Natriuret Pep pg/mL Total Protein (6.3-8.2) g/dL Albumin (3.5-5.0) g/dL Influenza Type A (PCR) Not Detected (Not Detectd) Influenza Type B (PCR) Not Detected (Not Detectd) RSV (PCR) Not Detected (Not Detectd) SARS-CoV-2 (PCR) Not Detected (Not Detectd) - EKG Data -: EKG Interpreted by Me EKG Comments: 12-lead Electrocardiogram Interpretation Note EKG was reviewed and interpreted by myself. 12-lead ECG performed at 2254 is interpreted by me as revealing A-fib with RVR chronic left bundle branch block at a rate of 123 beats per minute. [place] is normal. There were no ST or T wave abnormalities to suggest myocardial ischemia or injury. R wave progression across the precordium was satisfactory. By my interpretation this EKG is non- diagnostic for acute ischemia. Compared with EKG from January 21, 2024 with no significant change other than being in RVR. Critical Care Time Critical Care Time: Yes Total Critical Care Time: 41 Disposition Clinical Impression: Atrial fibrillation with RVR, CHF (congestive heart failure), Acute hypoxic respiratory failure, BiPAP (biphasic positive airway pressure) dependence Disposition: ADMITTED IP TO THIS HOSP Condition: Serious Referrals: Ton Nash DO [Primary Care Provider] - 1-2 days Time of Disposition: 00:55
[2024-01-24 00:06] LABS: Anisocytosis Slight; Basophils % (A) 0 %; Eosinophils # (A) 0.5 k/uL (0-0.7); Eosinophils % (A) 6 %; HCT 29.1 % (39.0-53.0); Hypochromasia Marked; Lymphocytes # (A) 0.7 k/uL (1.0-4.8); Lymphocytes % (A) 8 %; MCHC 32.1 g/dL (31.0-37.0); MCV 99.6 fL (80.0-100.0); Macrocytosis Moderate; Mean Platelet Volume 8.3; Monocytes # (A) 0.5 k/uL (0-1.0); Monocytes % (A) 6 %; Neutrophils # (A) 6.7 k/uL (1.3-7.7); Neutrophils % (A) 79 %; Platelet Count 202 k/uL (150-450); Poikilocytosis Moderate; RBC 2.92 m/uL (4.30-5.90); RDW 18.5 % (11.5-15.5); WBC 8.5 k/uL (3.8-10.6)
[2024-01-24 00:09] LABS: HGB 9.3 gm/dL (13.0-17.5)
[2024-01-24] MEDS: METOPROLOL TARTRATE 25 MG TAB PO STA (00:22)
[2024-01-24] MEDS: FUROSEMIDE 10 MG/ML 4 ML VIAL IV STA (00:42)
[2024-01-24] MEDS ORDERED: ONDANSETRON 4 MG/2 ML VIAL IVP PRN (00:54)
[2024-01-24] MEDS ORDERED: NALOXONE 0.4 MG/ML 1 ML VIAL IV PRN (00:54)
[2024-01-24] MEDS: ZINC OXIDE PASTE (Z-GUARD) 1 APPLIC TOPICAL ONE (03:57)
[2024-01-24] MEDS: glipiZIDE 10 MG TAB PO SCH (08:29)
[2024-01-24] MEDS: FUROSEMIDE 10 MG/ML 4 ML VIAL IV SCH (08:30)
[2024-01-24] MEDS: hydrALAZINE HCL 25 MG TAB PO SCH (08:30)
[2024-01-24] MEDS: ISOSORBIDE MONONITRATE ER 30 MG TAB.ER.24H PO SCH (08:30)
[2024-01-24] MEDS: PANTOPRAZOLE 40 MG/10 ML VIAL IV SCH (08:30)
[2024-01-24] MEDS: AMIODARONE 200 MG TAB PO SCH (08:30)
[2024-01-24] MEDS: ATORVASTATIN 40 MG TAB PO SCH (08:30)
[2024-01-24] MEDS: TIMOLOL 0.5% OPHTH DROPS 5 ML BTL BOTH EYES SCH (08:31)
[2024-01-24] MEDS ORDERED: METOPROLOL TARTRATE 12.5 MG TAB PO SCH ×2 (09:00→21:00)
--- NOTE | 2024-01-24 11:47 | P.CNPUL ---
History of Present Illness Consult date: 01/24/24 Requesting physician: Oscar Fiore Reason for consult: dyspnea, hypoxemia, abnormal CXR/CT Chief complaint: Shortness of breath History of present illness: This is an 78-year-old gentleman with a history of prostate cancer, diabetes mellitus, hypertension, angina, atrial fibrillation anticoagulated with Eliquis. Was recently diagnosed with coronary artery disease and the plan was for noah nary artery bypass grafting this week on January 27, 2024. He was just discharged from here yesterday after being worked up for GI bleeding and the plan was for outpatient EGD/colonoscopy. His Eliquis was placed on hold. He presented back here to the emergency room last evening with complaints of increasing shortness of breath and hypoxemia with O2 saturation in the 70s at home. Chest x-ray show s increased bilateral opacities and pleural effusion. EKG reveals atrial fibrillation with a left bundle branch block. White count 8.5. Hemoglobin 9.3. Platelets 202. Sodium 136. Potassium 4.2. Bicarb 15. BUN 26. Creatinine 1.52. Glucose 324. Troponin negative x 1. proBNP 2350. Viral screen negative. Initially placed on BiPAP 12/6 and 40% FiO2. He is seen today in consultation in the emergency department. He is currently resting fairly comfortably in bed. Awake and alert in no acute distress. Maintaining O2 saturations in the upper 90s on 3 L/min per nasal cannula. He was initiated on Lasix 40 mg IV every 12 hours. No output recorded. Review of Systems REVIEW OF SYSTEMS: CONSTITUTIONAL: Denies any recent significant weight loss or weight gain. EYES: Denies change in vision. EARS, NOSE, MOUTH, THROAT: Denies headaches, denies sore throat. CARDIOVASCULAR: Denies chest pain, palpitations or syncopal episodes. RESPIRATORY: Positive for shortness of breath, no cough, congestion or hemoptysis. GASTROINTESTINAL: Denies change in appetite, denies abdominal pain GENITOURINARY: Denies hematuria, denies infections. MUSKULOSKELETAL: Denies pain, denies swelling. INTEGUMENTARY: Denies rash, denies eczema. NEUROLOGICAL: Denies recent memory loss, no recent seizure activity. PSYCHIATRIC: Denies anxiety, denies depression. HEMATOLOGIC/LYMPHATIC: Denies anemia, denies enlarged lymph nodes. Past Medical History Past Medical History: Cancer, Chest Pain / Angina, Heart Failure, Diabetes Mellitus, Hypertension, Prostate Disorder Additional Past Medical History / Comment(s): prostate cancer History of Any Multi-Drug Resistant Organisms: None Reported Past Surgical History: Appendectomy, Cardiac Ablation, Orthopedic Surgery Additional Past Surgical History / Comment(s): Right hip replacement, bilateral cataract Past Anesthesia/Blood Transfusion Reactions: No Reported Reaction Smoking Status: Former smoker - Past Family History Father Family Medical History: Coronary Artery Disease (CAD) Additional Family Medical History / Comment(s): from an aneurysm Mother Family Medical History: Cancer Medications and Allergies Home Medications Medication Instructions Recorded Confirmed Type Timolol 0.5% Ophth Soln [Timoptic 1 drop BOTH EYES BID 12/24/23 01/24/24 History 0.5% Ophth Soln] Atorvastatin [Lipitor] 40 mg PO DAILY #30 tab 01/01/24 01/24/24 Rx Dapagliflozin Propanediol [Farxiga] 10 mg PO DAILY #30 tab 01/01/24 01/24/24 Rx Isosorbide Mononitrate ER [Imdur] 30 mg PO DAILY #30 tab 01/01/24 01/24/24 Rx Amiodarone [Cordarone] 200 mg PO DAILY 01/22/24 01/24/24 History Metoprolol Tartrate [Lopressor] 12.5 mg PO BID 01/22/24 01/24/24 History glipiZIDE XL [Glucotrol XL] 5 mg PO BID #0 01/22/24 01/24/24 Rx hydrALAZINE HCL [Apresoline] 25 mg PO TID 01/22/24 01/24/24 History Apixaban [Eliquis] 5 mg PO DIRECTED 01/24/24 01/24/24 History Aspirin 81 mg PO DIRECTED 01/24/24 01/24/24 History Folic Acid-Vit B Complex-Vit C 1 cap PO DAILY 01/24/24 01/24/24 History [Nephrocaps] Allergies Allergy/AdvReac Type Severity Reaction Status Date / Time Penicillins Allergy Unknown Verified 01/24/24 10:42 Childhood Physical Exam Vitals: Vital Signs Temp Pulse Pulse Resp BP BP Pulse Ox 01/24/24 08:00 116 H 18 105/74 97 01/24/24 07:40 98 01/24/24 03:44 101 H 29 H 108/62 100 01/24/24 03:25 01/24/24 01:00 107 H 25 H 94/65 99 01/24/24 00:46 106 H 28 H 112/71 100 01/24/24 00:24 122 H 32 H 98/57 100 01/23/24 23:00 01/23/24 22:56 99.6 F 123 H 37 H 114/79 99 FiO2 01/24/24 08:00 01/24/24 07:40 01/24/24 03:44 01/24/24 03:25 40 01/24/24 01:00 01/24/24 00:46 01/24/24 00:24 01/23/24 23:00 40 01/23/24 22:56 Intake and Output 01/23/24 01/24/24 01/24/24 22:59 06:59 14:59 Other: Voiding Method External Catheter Weight 86.183 kg 86.183 kg GENERAL EXAM: Alert, pleasant 78-year-old male patient, on 3 L nasal cannula, fairly comfortable in no apparent distress. HEAD: Normocephalic. EYES: Normal reaction of pupils, equal size. NOSE: Clear with pink turbinates. THROAT: No erythema or exudates. NECK: No masses, no JVD. CHEST: No chest wall deformity. LUNGS: Equal air entry with bibasilar crackles. CVS: S1 and S2 normal with an audible murmur, irregular rhythm. ABDOMEN: No hepatosplenomegaly, normal bowel sounds, no guarding or rigidity. SPINE: No scoliosis or deformity SKIN: No rashes CENTRAL NERVOUS SYSTEM: No focal deficits, tone is normal in all 4 extremities. EXTREMITIES: There is 1+ peripheral edema. No clubbing, no cyanosis. Peripheral pulses are intact. Results - Laboratory Findings CBC and BMP: 01/23/24 22:54 01/23/24 22:54 PT/INR, D-dimer PT 11.1 sec (10.0-12.5) 01/23/24 22:54 INR 1.0 (<1.2) 01/23/24 22:54 Abnormal lab findings: Abnormal Labs 01/23/24 01/23/24 01/23/24 22:54 22:54 22:54 RBC 2.92 L Hgb 9.3 L D Hct 29.1 L RDW 18.5 H Lymphocytes # 0.7 L Sodium 136 L Chloride 110 H Carbon Dioxide 15 L BUN 26 H Creatinine 1.52 H Glucose 324 H Plasma Lactic Acid Mitul 3.1 H* Calcium 8.3 L Total Protein 5.7 L 01/24/24 03:00 RBC Hgb Hct RDW Lymphocytes # Sodium Chloride Carbon Dioxide BUN Creatinine Glucose Plasma Lactic Acid Mitul 2.5 H* Calcium Total Protein - Diagnostic Findings Chest x-ray: image reviewed Assessment and Plan Assessment: Acute hypoxemic respiratory failure secondary to an acute exacerbation of chronic systolic congestive heart failure. Ejection fraction 25 to 30%. Moderate to severe mitral regurgitation. No mitral stenosis Acute anemia. Discharged yesterday 01/23/2024 His preop CABG workup revealed a hemoglobin of 6.2 and he was directed to the emergency room on 01/22/2024. He did receive 1 unit of blood with follow-up hemoglobin of 7.2. His Eliquis is on hold and he was to have an EGD/colonoscopy tomorrow 01/25/2024 Significant coronary artery disease. Plans were for coronary artery bypass grafting 01/27/2024 Atrial fibrillation, anticoagulated with Eliquis. Synchronized cardioversion on 12/31/2023 initially in sinus rhythm, back in atrial fibrillation Diabetes mellitus, type II Hypertension Former smoker History of prostate cancer with previous radiation Plan: The patient was seen and evaluated Chest x-ray, labs and medications reviewed Continue IV diuretics Titrate the FiO2 as tolerated Eliquis remains on hold We will continue to follow and make further recommendations based on his clinical status I have personally seen and examined the patient, performed the documentation and the assessment and plan as written. Number of minutes spent on the visit: 20.
[2024-01-24] MEDS: ASPIRIN 81 MG PO SCH (12:46)
--- NOTE | 2024-01-24 12:50 | P.HPIM ---
History of Present Illness 78-year-old male came in with complaints of significant shortness of breath with oxygen saturation going down to 70. Patient chest x-ray showed pulmonary edema with bilateral pleural effusions, patient does have history of congestive heart failure with EF of around 25 to 30%. Patient was being evaluated as an outpatient for coronary bypass grafting. Patient's proBNP is 2350 and patient was also in atrial fibrillation. Patient is on anticoagulation with Eliquis but was admitted to the hospital with low hemoglobin although there is no evidence of acute GI bleed there is a concern for subacute slow bleeding because of which Eliquis is being held and patient is scheduled for outpatient upper endoscopy and colonoscopy. His hemoglobin did not drop significantly compared to his last hospitalization. On metoprolol blood pressure is low normal at this time. Patient is not on any anticoagulation at this time because of concerns of GI bleed as mentioned above and low hemoglobin. REVIEW OF SYSTEMS: All other systems are negative except those mentioned in the HPI PHYSICAL EXAMINATION: GENERAL: The patient is alert and oriented x3, not in any acute distress. Well developed, well nourished. HEENT: Pupils are round and equally reacting to light. EOMI. No scleral icterus. No conjunctival pallor. Normocephalic, atraumatic. No pharyngeal erythema. No thyromegaly. CARDIOVASCULAR: S1 and S2 present. No murmurs, rubs, or gallops. Irregularly irregular rhythm PULMONARY: Chest is clear to auscultation, no wheezing or crackles. ABDOMEN: Soft, nontender, nondistended, normoactive bowel sounds. No palpable organomegaly. MUSCULOSKELETAL: No joint swelling or deformity. EXTREMITIES: No cyanosis, clubbing, or pedal edema. NEUROLOGICAL: Gross neurological examination did not reveal any focal deficits. SKIN: No rashes. Assessment and plan Atrial fibrillation with rapid ventricular rate: Patient is on amiodarone and metoprolol patient is not on any IV medications at this time cardiology is managing atrial fibrillation at this time. Patient is not on anticoagulation because of his low hemoglobin and concern for GI bleed. -Shortness of breath probably secondary to congestive heart failure chronic systolic function with acute exacerbation patient was started on 40 mg IV twice a day of Lasix which will be continued -Anemia subacute no evidence of acute GI bleed at this time will consult general surgery or gastroenterology for a scope that is scheduled as an outpatient. -Type 2 diabetes mellitus -Hypertension the patient is not started on any anticoagulation for A-fib patient was started on DVT prophylaxis starting tomorrow patient blood pressure is actually low patient is on hydralazine and Imdur for heart failure which are being continued at this time -History of prostate cancer with radiation in the past: DVT prophylaxis: The patient is not started on any anticoagulation for atrial fibrillation he will be started on DVT prophylaxis starting tomorrow Past Medical History Past Medical History: Cancer, Chest Pain / Angina, Heart Failure, Diabetes Mellitus, Hypertension, Prostate Disorder Additional Past Medical History / Comment(s): prostate cancer History of Any Multi-Drug Resistant Organisms: None Reported Past Surgical History: Appendectomy, Cardiac Ablation, Orthopedic Surgery Additional Past Surgical History / Comment(s): Right hip replacement, bilateral cataract Past Anesthesia/Blood Transfusion Reactions: No Reported Reaction Smoking Status: Former smoker - Past Family History Father Family Medical History: Coronary Artery Disease (CAD) Additional Family Medical History / Comment(s): from an aneurysm Mother Family Medical History: Cancer Medications and Allergies Home Medications Medication Instructions Recorded Confirmed Type Timolol 0.5% Ophth Soln [Timoptic 1 drop BOTH EYES BID 12/24/23 01/24/24 History 0.5% Ophth Soln] Atorvastatin [Lipitor] 40 mg PO DAILY #30 tab 01/01/24 01/24/24 Rx Dapagliflozin Propanediol [Farxiga] 10 mg PO DAILY #30 tab 01/01/24 01/24/24 Rx Isosorbide Mononitrate ER [Imdur] 30 mg PO DAILY #30 tab 01/01/24 01/24/24 Rx Amiodarone [Cordarone] 200 mg PO DAILY 01/22/24 01/24/24 History Metoprolol Tartrate [Lopressor] 12.5 mg PO BID 01/22/24 01/24/24 History glipiZIDE XL [Glucotrol XL] 5 mg PO BID #0 01/22/24 01/24/24 Rx hydrALAZINE HCL [Apresoline] 25 mg PO TID 01/22/24 01/24/24 History Apixaban [Eliquis] 5 mg PO DIRECTED 01/24/24 01/24/24 History Aspirin 81 mg PO DIRECTED 01/24/24 01/24/24 History Folic Acid-Vit B Complex-Vit C 1 cap PO DAILY 01/24/24 01/24/24 History [Nephrocaps] Allergies Allergy/AdvReac Type Severity Reaction Status Date / Time Penicillins Allergy Unknown Verified 01/24/24 10:42 Childhood Physical Exam Vitals: Vital Signs Temp Pulse Pulse Resp BP BP Pulse Ox 01/24/24 12:00 124 H 18 105/74 100 01/24/24 08:00 116 H 18 105/74 97 01/24/24 07:40 98 01/24/24 03:44 101 H 29 H 108/62 100 01/24/24 03:25 01/24/24 01:00 107 H 25 H 94/65 99 01/24/24 00:46 106 H 28 H 112/71 100 01/24/24 00:24 122 H 32 H 98/57 100 01/23/24 23:00 01/23/24 22:56 99.6 F 123 H 37 H 114/79 99 FiO2 01/24/24 12:00 01/24/24 08:00 01/24/24 07:40 01/24/24 03:44 01/24/24 03:25 40 01/24/24 01:00 01/24/24 00:46 01/24/24 00:24 01/23/24 23:00 40 01/23/24 22:56 Intake and Output 01/23/24 01/24/24 01/24/24 22:59 06:59 14:59 Other: Voiding Method External Catheter Weight 86.183 kg 86.183 kg Results CBC & Chem 7: 01/23/24 22:54 01/23/24 22:54 Labs: Abnormal Lab Results - Last 24 Hours (Table) 01/23/24 01/23/24 01/23/24 Range/Units 22:54 22:54 22:54 RBC 2.92 L (4.30-5.90) m/uL Hgb 9.3 L D (13.0-17.5) gm/dL Hct 29.1 L (39.0-53.0) % RDW 18.5 H (11.5-15.5) % Lymphocytes # 0.7 L (1.0-4.8) k/uL Sodium 136 L (137-145) mmol/L Chloride 110 H (98-107) mmol/L Carbon Dioxide 15 L (22-30) mmol/L BUN 26 H (9-20) mg/dL Creatinine 1.52 H (0.66-1.25) mg/dL Glucose 324 H (74-99) mg/dL Plasma Lactic Acid Mitul 3.1 H* (0.7-2.0) mmol/L Calcium 8.3 L (8.4-10.2) mg/dL Total Protein 5.7 L (6.3-8.2) g/dL 01/24/24 Range/Units 03:00 RBC (4.30-5.90) m/uL Hgb (13.0-17.5) gm/dL Hct (39.0-53.0) % RDW (11.5-15.5) % Lymphocytes # (1.0-4.8) k/uL Sodium (137-145) mmol/L Chloride (98-107) mmol/L Carbon Dioxide (22-30) mmol/L BUN (9-20) mg/dL Creatinine (0.66-1.25) mg/dL Glucose (74-99) mg/dL Plasma Lactic Acid Mitul 2.5 H* (0.7-2.0) mmol/L Calcium (8.4-10.2) mg/dL Total Protein (6.3-8.2) g/dL Thrombosis Risk Factor Assmnt - Choose All That Apply Any of the Below Risk Factors Present?: No Other Risk Factors: Yes Each Risk Factor Represents 3 Points: Age 75 years or older Other congenital or acquired thrombophilia - If yes, enter type in comment: No Thrombosis Risk Factor Assessment Total Risk Factor Score: 3 Thrombosis Risk Factor Assessment Level: Moderate Risk
[2024-01-24] MEDS: METOPROLOL TARTRATE 12.5 MG TAB PO SCH (13:44)
--- NOTE | 2024-01-24 14:22 | P.CRDCN ---
History of Present Illness Consult date: 01/24/24 History of present illness: HISTORY OF PRESENTING ILLNESS 78-year-old with past medical history of type 2 diabetes, hypertension, prostate cancer s/p radiation, admitted in December 2023 with CHF exacerbation was found to have A-fib RVR, left bundle branch block. He had a heart catheterization done after stabilization of heart failure which showed multivessel CAD. His surface echo showed concerns of severe MR, repeat transesophageal echocardiogram showed severe mitral regurgitation which had an ischemic component to it. He also had cardioversion done at that time with resolution of sinus rhythm. He was followed up in clinic which showed optimal control of his heart failure symptoms and fluid status with good renal function. He was maintaining sinus rhythm. 2 days ago he was admitted to the hospital because of concerns of weakness and was found to have anemia. He received 2 units of blood transfusion and there was plan for outpatient GI scopes. This time he presented to the hospital again with worsening shortness of breath and palpitation symptoms and was found to have A-fib with RVR. REVIEW OF SYSTEMS 14 point review of system is negative except what is mentioned above in HPI. PHYSICAL EXAMINATION Vital signs reviewed. Head: Normocephalic. Eyes: Sclerae nonicteric. Neck: Brisk carotid upstroke, no jugular venous distention. Lungs: Clear to auscultation. Heart: Irregularly irregular S1-S2, no S3, no murmur or rub. Abdomen: Soft nontender, positive bowel sounds. Extremities: No edema, intact distal pulses. Neuro: Alert, oritented, no focal deficits. Detailed neuro exam was not performed. ASSESSMENT Acute on chronic anemia Suspected GI bleeding Atrial fibrillation with RVR. Status post cardioversion December 2023 with good results. Went into A-fib on this admission Ischemic cardiomyopathy EF of 35% HFrEF, mildly volume overloaded. LBBB CKD CAD, multivessel, plan for CABG on 01/27/2024 Frail PLAN Given dose of IV iron. Please start patient on multivitamins, protein supplements Discontinue Eliquis. Continue aspirin, Lipitor, increase metoprolol to 25 mg twice daily Continue Imdur 30 mg, hydralazine 25 mg 3 times daily Reduce Lasix to 40 mg daily Start Farxiga from tomorrow 10 mg daily Monitor renal function and urine output. Monitor electrolytes. Continue amiodarone 200 mg daily Continue to monitor telemetry. Keep heart rate around [address] surgery. Talk to CT surgery tomorrow to see if he can sleep on the CABG, mitral valve repair, Maze procedure and left atrial appendage ligation. Consult GI service. Patient was eval by Dr. Reyna for possible upper and lower GI scopes. Obtain stool occult blood. Umair Pelletier MD, FAC, RPVI Thank you for allowing [facility] to participate in this patient's care. Feel free to reach out in case of any followup questions. Past Medical History Past Medical History: Cancer, Chest Pain / Angina, Heart Failure, Diabetes Mellitus, Hypertension, Prostate Disorder Additional Past Medical History / Comment(s): prostate cancer History of Any Multi-Drug Resistant Organisms: None Reported Past Surgical History: Appendectomy, Cardiac Ablation, Orthopedic Surgery Additional Past Surgical History / Comment(s): Right hip replacement, bilateral cataract Past Anesthesia/Blood Transfusion Reactions: No Reported Reaction Smoking Status: Former smoker - Past Family History Father Family Medical History: Coronary Artery Disease (CAD) Additional Family Medical History / Comment(s): from an aneurysm Mother Family Medical History: Cancer Medications and Allergies Home Medications Medication Instructions Recorded Confirmed Type Timolol 0.5% Ophth Soln [Timoptic 1 drop BOTH EYES BID 12/24/23 01/24/24 History 0.5% Ophth Soln] Atorvastatin [Lipitor] 40 mg PO DAILY #30 tab 01/01/24 01/24/24 Rx Dapagliflozin Propanediol [Farxiga] 10 mg PO DAILY #30 tab 01/01/24 01/24/24 Rx Isosorbide Mononitrate ER [Imdur] 30 mg PO DAILY #30 tab 01/01/24 01/24/24 Rx Amiodarone [Cordarone] 200 mg PO DAILY 01/22/24 01/24/24 History Metoprolol Tartrate [Lopressor] 12.5 mg PO BID 01/22/24 01/24/24 History glipiZIDE XL [Glucotrol XL] 5 mg PO BID #0 01/22/24 01/24/24 Rx hydrALAZINE HCL [Apresoline] 25 mg PO TID 01/22/24 01/24/24 History Apixaban [Eliquis] 5 mg PO DIRECTED 01/24/24 01/24/24 History Aspirin 81 mg PO DIRECTED 01/24/24 01/24/24 History Folic Acid-Vit B Complex-Vit C 1 cap PO DAILY 01/24/24 01/24/24 History [Nephrocaps] Allergies Allergy/AdvReac Type Severity Reaction Status Date / Time Penicillins Allergy Unknown Verified 01/24/24 10:42 Childhood Physical Exam Vitals: Vital Signs Temp Pulse Pulse Resp BP BP Pulse Ox 01/24/24 12:00 124 H 18 105/74 100 01/24/24 08:00 116 H 18 105/74 97 01/24/24 07:40 98 01/24/24 03:44 101 H 29 H 108/62 100 01/24/24 03:25 01/24/24 01:00 107 H 25 H 94/65 99 01/24/24 00:46 106 H 28 H 112/71 100 01/24/24 00:24 122 H 32 H 98/57 100 01/23/24 23:00 01/23/24 22:56 99.6 F 123 H 37 H 114/79 99 FiO2 01/24/24 12:00 01/24/24 08:00 01/24/24 07:40 01/24/24 03:44 01/24/24 03:25 40 01/24/24 01:00 01/24/24 00:46 01/24/24 00:24 01/23/24 23:00 40 01/23/24 22:56 Intake and Output 01/23/24 01/24/24 01/24/24 22:59 06:59 14:59 Other: Voiding Method External Catheter Weight 86.183 kg 86.183 kg Results 01/23/24 22:54 01/23/24 22:54 Cardiac Enzymes 01/23/24 01/23/24 Range/Units 22:54 22:54 AST 30 (17-59) U/L Troponin I <0.012 (0.000-0.034) ng/mL Coagulation 01/23/24 Range/Units 22:54 PT 11.1 (10.0-12.5) sec APTT 23.6 (22.0-30.0) sec CBC 01/23/24 Range/Units 22:54 WBC 8.5 (3.8-10.6) k/uL RBC 2.92 L (4.30-5.90) m/uL Hgb 9.3 L D (13.0-17.5) gm/dL Hct 29.1 L (39.0-53.0) % Plt Count 202 (150-450) k/uL Comprehensive Metabolic Panel 01/23/24 Range/Units 22:54 Sodium 136 L (137-145) mmol/L Potassium 4.2 (3.5-5.1) mmol/L Chloride 110 H (98-107) mmol/L Carbon Dioxide 15 L (22-30) mmol/L BUN 26 H (9-20) mg/dL Creatinine 1.52 H (0.66-1.25) mg/dL Glucose 324 H (74-99) mg/dL Calcium 8.3 L (8.4-10.2) mg/dL AST 30 (17-59) U/L ALT 18 (4-49) U/L Alkaline Phosphatase 85 (38-126) U/L Total Protein 5.7 L (6.3-8.2) g/dL Albumin 3.7 (3.5-5.0) g/dL Current Medications Generic Name Dose Route Start Last Admin Trade Name Freq PRN Reason Stop Dose Admin Acetaminophen 650 mg 01/24/24 00:54 Acetaminophen Tab 325 Mg Tab PO Q6HR PRN Mild Pain or Fever > 100.5 Amiodarone HCl 200 mg 01/24/24 09:00 01/24/24 08:30 Amiodarone 200 Mg Tab PO 200 mg DAILY JAYLEN Administration Aspirin 81 mg 01/24/24 12:30 01/24/24 12:46 Aspirin 81 Mg PO 81 mg DAILY JAYLEN Administration Atorvastatin Calcium 40 mg 01/24/24 09:00 01/24/24 08:30 Atorvastatin 40 Mg Tab PO 40 mg DAILY JAYLEN Administration Dapagliflozin 10 mg 01/25/24 09:00 Dapagliflozin Propanediol 10 Mg Tablet PO DAILY PENDING SALE TO [facility] Furosemide 40 mg 01/25/24 09:00 Furosemide 10 Mg/Ml 4 Ml Vial IV DAILY PENDING SALE TO [facility] Glipizide 10 mg 01/24/24 09:00 01/24/24 08:29 Glipizide 10 Mg Tab PO 10 mg BID JAYLEN Administration Hydralazine HCl 25 mg 01/24/24 09:00 01/24/24 08:30 Hydralazine Hcl 25 Mg Tab PO 25 mg TID JAYLEN Administration Ferric Sodium Gluconate 125 mg 110 mls @ 100 mls/hr 01/24/24 14:13 / Sodium Chloride IVPB 01/24/24 15:18 ONCE ONE Isosorbide Mononitrate 30 mg 01/24/24 09:00 01/24/24 08:30 Isosorbide Mononitrate Er 30 Mg Tab.Er.24h PO 30 mg DAILY JAYLEN Administration Metoprolol Tartrate 25 mg 01/24/24 14:15 Metoprolol Tartrate 25 Mg Tab PO BID JAYLEN Naloxone HCl 0.2 mg 01/24/24 00:54 Naloxone 0.4 Mg/Ml 1 Ml Vial IV Q2M PRN Opioid Reversal Ondansetron HCl 4 mg 01/24/24 00:54 Ondansetron 4 Mg/2 Ml Vial IVP Q8HR PRN Nausea And Vomiting Pantoprazole Sodium 40 mg 01/24/24 09:00 01/24/24 08:30 Pantoprazole 40 Mg/10 Ml Vial IV 40 mg DAILY JAYLEN Administration Timolol Maleate 1 drops 01/24/24 09:00 01/24/24 08:31 Timolol 0.5% Ophth Drops 5 Ml Btl BOTH EYES 1 drops BID JAYLEN Administration Intake and Output 01/23/24 01/24/24 01/24/24 22:59 06:59 14:59 Other: Voiding Method External Catheter Weight 86.183 kg 86.183 kg 01/23/24 22:54 01/23/24 22:54
[2024-01-24] MEDS: METOPROLOL TARTRATE 25 MG TAB PO SCH (15:07)
[2024-01-24 16:28] LABS: Glucose,Whole Blood 251 mg/dL (70-110)
[2024-01-24] MEDS: SODIUM FERRIC GLUCONAT-SUCROSE 125 MG in SODIUM CHLORIDE 0.9% 100 ML IVPB ONE (17:00)
[2024-01-24] MEDS: INSULIN ASPART (NovoLOG) 100 UNIT/ML VIAL SQ SCH (17:00)
[2024-01-24 17:27] LABS: Appearance,Urine Clear (Clear); Bilirubin,Urine Negative (Negative); Blood,Urine Negative (Negative); Color,Urine Colorless; Glucose,Urine (UA) 4+ (Negative); Ketones,Urine Negative (Negative); Leukocyte Esterase,Urine Negative (Negative); Nitrite,Urine Negative (Negative); Protein,Urine Negative (Negative); Urobilinogen,Urine <2.0 mg/dL (<2.0)
[2024-01-24 17:33] VITALS: RESP 17
[2024-01-24 20:41] LABS: Glucose,Whole Blood 196 mg/dL (70-110)
[2024-01-25] MEDS: ACETAMINOPHEN TAB 325 MG TAB PO PRN
[2024-01-25 03:27] VITALS: BP 108/68; PULSE 110; TEMP 98.1
[2024-01-25 06:06] LABS: Glucose,Whole Blood 134 mg/dL (70-110)
[2024-01-25] MEDS ORDERED: ATORVASTATIN 40 MG TAB ONE (08:31)
[2024-01-25] MEDS ORDERED: glipiZIDE 10 MG TAB ONE ×2 (08:31→21:52)
[2024-01-25] MEDS ORDERED: DAPAGLIFLOZIN PROPANEDIOL 10 MG TABLET ONE (08:31)
[2024-01-25] MEDS ORDERED: METOPROLOL TARTRATE 25 MG TAB ONE ×2 (08:31→21:52)
[2024-01-25] MEDS ORDERED: PANTOPRAZOLE 40 MG/10 ML VIAL ONE (08:31)
[2024-01-25] MEDS ORDERED: ASPIRIN 81 MG ONE (08:31)
[2024-01-25] MEDS ORDERED: FUROSEMIDE 10 MG/ML 4 ML VIAL ONE (08:31)
[2024-01-25] MEDS ORDERED: ISOSORBIDE MONONITRATE ER 30 MG TAB.ER.24H PO ONE (08:31)
[2024-01-25] MEDS ORDERED: hydrALAZINE HCL 25 MG TAB ONE ×3 (08:32→21:53)
[2024-01-25] MEDS ORDERED: AMIODARONE 200 MG TAB ONE (08:32)
[2024-01-25] MEDS ORDERED: DAPAGLIFLOZIN PROPANEDIOL 10 MG TABLET PO SCH ×2 (09:00)
[2024-01-25] MEDS ORDERED: FUROSEMIDE 10 MG/ML 4 ML VIAL IV SCH (09:00)
[2024-01-25] MEDS ORDERED: ACETAMINOPHEN TAB 325 MG TAB ONE (11:47)
[2024-01-25 11:55] LABS: Glucose,Whole Blood 222 mg/dL (70-110)
[2024-01-25] MEDS ORDERED: INSULIN ASPART (NovoLOG) 100 UNIT/ML VIAL SQ ONE ×3 (12:09→21:53)
[2024-01-25 16:59] LABS: Glucose,Whole Blood 201 mg/dL (70-110)
[2024-01-25 20:24] LABS: Glucose,Whole Blood 299 mg/dL (70-110)
[2024-01-26] MEDS ORDERED: ACETAMINOPHEN TAB 325 MG TAB ONE (04:58)
[2024-01-26 06:02] LABS: Glucose,Whole Blood 163 mg/dL (70-110)
[2024-01-26] MEDS ORDERED: INSULIN ASPART (NovoLOG) 100 UNIT/ML VIAL SQ ONE ×4 (06:45→20:08)
[2024-01-26] MEDS ORDERED: METOPROLOL TARTRATE 25 MG TAB ONE ×2 (08:43→20:07)
[2024-01-26] MEDS ORDERED: ATORVASTATIN 40 MG TAB ONE (08:43)
[2024-01-26] MEDS ORDERED: ISOSORBIDE MONONITRATE ER 30 MG TAB.ER.24H PO ONE (08:43)
[2024-01-26] MEDS ORDERED: ASPIRIN 81 MG ONE (08:43)
[2024-01-26] MEDS ORDERED: DAPAGLIFLOZIN PROPANEDIOL 10 MG TABLET ONE (08:44)
[2024-01-26] MEDS ORDERED: glipiZIDE 10 MG TAB ONE ×2 (08:44→20:07)
[2024-01-26] MEDS ORDERED: PANTOPRAZOLE 40 MG/10 ML VIAL ONE (08:44)
[2024-01-26] MEDS ORDERED: FUROSEMIDE 10 MG/ML 4 ML VIAL ONE (08:44)
[2024-01-26] MEDS ORDERED: AMIODARONE 200 MG TAB ONE (08:44)
[2024-01-26] MEDS ORDERED: hydrALAZINE HCL 25 MG TAB ONE ×3 (08:44→20:07)
[2024-01-26 11:51] LABS: Glucose,Whole Blood 305 mg/dL (70-110)
[2024-01-26 16:55] LABS: Glucose,Whole Blood 262 mg/dL (70-110)
[2024-01-26 20:01] LABS: Glucose,Whole Blood 231 mg/dL (70-110)
[2024-01-27 06:05] LABS: Glucose,Whole Blood 161 mg/dL (70-110)
[2024-01-27] MEDS ORDERED: INSULIN ASPART (NovoLOG) 100 UNIT/ML VIAL SQ ONE ×4 (06:57→20:36)
[2024-01-27] MEDS ORDERED: ISOSORBIDE MONONITRATE ER 30 MG TAB.ER.24H PO ONE (08:01)
[2024-01-27] MEDS ORDERED: FUROSEMIDE 10 MG/ML 4 ML VIAL ONE (08:01)
[2024-01-27] MEDS ORDERED: ASPIRIN 81 MG ONE (08:01)
[2024-01-27] MEDS ORDERED: METOPROLOL TARTRATE 25 MG TAB ONE ×2 (08:01→20:35)
[2024-01-27] MEDS ORDERED: ATORVASTATIN 40 MG TAB ONE (08:01)
[2024-01-27] MEDS ORDERED: PANTOPRAZOLE 40 MG/10 ML VIAL ONE (08:02)
[2024-01-27] MEDS ORDERED: AMIODARONE 200 MG TAB ONE (08:02)
[2024-01-27] MEDS ORDERED: glipiZIDE 10 MG TAB ONE ×2 (08:02→20:35)
[2024-01-27] MEDS ORDERED: DAPAGLIFLOZIN PROPANEDIOL 10 MG TABLET ONE (08:02)
[2024-01-27] MEDS ORDERED: hydrALAZINE HCL 25 MG TAB ONE ×3 (08:02→20:35)
[2024-01-27 11:40] LABS: Glucose,Whole Blood 171 mg/dL (70-110)
[2024-01-27] MEDS ORDERED: LACTATED RINGERS 1,000 ML BAG ONE (13:30)
[2024-01-27] MEDS ORDERED: PHENYLEPHRINE 10 MG/ML VIAL ONE (13:40)
[2024-01-27] MEDS ORDERED: PROPOFOL 10 MG/ML 20 ML VIAL IV ONE (13:40)
[2024-01-27 16:36] LABS: Glucose,Whole Blood 163 mg/dL (70-110)
[2024-01-27 20:24] LABS: Glucose,Whole Blood 207 mg/dL (70-110)
[2024-01-27] MEDS ORDERED: ACETAMINOPHEN TAB 325 MG TAB ONE (23:31)
[2024-01-28] MEDS ORDERED: SODIUM CHLORIDE 0.9% 1,000 ML BAG ONE
[2024-01-28 05:25] LABS: Glucose,Whole Blood 145 mg/dL (70-110)
[2024-01-28] MEDS ORDERED: ATORVASTATIN 40 MG TAB ONE (08:43)
[2024-01-28] MEDS ORDERED: METOPROLOL TARTRATE 25 MG TAB ONE ×2 (08:43→12:12)
[2024-01-28] MEDS ORDERED: ISOSORBIDE MONONITRATE ER 30 MG TAB.ER.24H PO ONE (08:43)
[2024-01-28] MEDS ORDERED: PANTOPRAZOLE 40 MG/10 ML VIAL ONE (08:43)
[2024-01-28] MEDS ORDERED: ASPIRIN 81 MG ONE (08:43)
[2024-01-28] MEDS ORDERED: glipiZIDE 10 MG TAB ONE ×2 (08:44→20:18)
[2024-01-28] MEDS ORDERED: FUROSEMIDE 40 MG TAB ONE (08:44)
[2024-01-28] MEDS ORDERED: DAPAGLIFLOZIN PROPANEDIOL 10 MG TABLET ONE (08:44)
[2024-01-28] MEDS ORDERED: AMIODARONE 200 MG TAB ONE (08:44)
[2024-01-28] MEDS ORDERED: hydrALAZINE HCL 25 MG TAB ONE (08:44)
[2024-01-28] MEDS ORDERED: DARBEPOETIN ALFA 40 MCG/0.4 ML SYRINGE ONE (09:00)
[2024-01-28 11:36] LABS: Glucose,Whole Blood 238 mg/dL (70-110)
[2024-01-28] MEDS ORDERED: INSULIN ASPART (NovoLOG) 100 UNIT/ML VIAL SQ ONE ×3 (12:12→20:18)
[2024-01-28] MEDS ORDERED: POTASSIUM CHLORIDE ER 20 MEQ TAB.ER PO ONE ×2 (15:46)
[2024-01-28 16:44] LABS: Glucose,Whole Blood 281 mg/dL (70-110)
[2024-01-28 20:17] LABS: Glucose,Whole Blood 262 mg/dL (70-110)
[2024-01-28] MEDS ORDERED: METOPROLOL TARTRATE 50 MG TAB ONE ×2 (20:18)
[2024-01-29] MEDS ORDERED: SODIUM CHLORIDE 0.9% 1,000 ML BAG ONE
[2024-01-29 05:39] LABS: Glucose,Whole Blood 217 mg/dL (70-110)
[2024-01-29] MEDS ORDERED: INSULIN ASPART (NovoLOG) 100 UNIT/ML VIAL SQ ONE ×4 (06:12→22:49)
[2024-01-29] MEDS ORDERED: ASPIRIN 81 MG ONE (07:54)
[2024-01-29] MEDS ORDERED: METOPROLOL TARTRATE 50 MG TAB ONE ×2 (07:54)
[2024-01-29] MEDS ORDERED: AMIODARONE 200 MG TAB ONE (07:55)
[2024-01-29] MEDS ORDERED: glipiZIDE 10 MG TAB ONE ×2 (07:55→22:49)
[2024-01-29] MEDS ORDERED: FUROSEMIDE 40 MG TAB ONE (07:55)
[2024-01-29] MEDS ORDERED: ISOSORBIDE MONONITRATE ER 30 MG TAB.ER.24H PO ONE (07:55)
[2024-01-29] MEDS ORDERED: ATORVASTATIN 40 MG TAB ONE (07:55)
[2024-01-29] MEDS ORDERED: DAPAGLIFLOZIN PROPANEDIOL 10 MG TABLET ONE (07:55)
[2024-01-29] MEDS ORDERED: PANTOPRAZOLE 40 MG/10 ML VIAL ONE (07:56)
[2024-01-29 11:59] LABS: Glucose,Whole Blood 278 mg/dL (70-110)
[2024-01-29] MEDS ORDERED: POTASSIUM CHLORIDE ER 20 MEQ TAB.ER PO ONE ×2 (12:30)
[2024-01-29 19:56] LABS: Glucose,Whole Blood 251 mg/dL (70-110)
[2024-01-29] MEDS ORDERED: METOPROLOL TARTRATE 25 MG TAB ONE (22:49)
[2024-01-30 05:56] LABS: Glucose,Whole Blood 187 mg/dL (70-110)
[2024-01-30] MEDS ORDERED: INSULIN ASPART (NovoLOG) 100 UNIT/ML VIAL SQ ONE ×4 (06:10→20:16)
[2024-01-30] MEDS ORDERED: ASPIRIN 81 MG ONE (11:19)
[2024-01-30] MEDS ORDERED: METOPROLOL TARTRATE 25 MG TAB ONE ×2 (11:19→20:16)
[2024-01-30] MEDS ORDERED: DAPAGLIFLOZIN PROPANEDIOL 10 MG TABLET ONE (11:20)
[2024-01-30] MEDS ORDERED: FUROSEMIDE 10 MG/ML 4 ML VIAL ONE (11:20)
[2024-01-30] MEDS ORDERED: PANTOPRAZOLE 40 MG/10 ML VIAL ONE (11:20)
[2024-01-30] MEDS ORDERED: ISOSORBIDE MONONITRATE ER 30 MG TAB.ER.24H PO ONE (11:20)
[2024-01-30] MEDS ORDERED: ATORVASTATIN 40 MG TAB ONE (11:20)
[2024-01-30] MEDS ORDERED: hydrALAZINE HCL 25 MG TAB ONE (11:21)
[2024-01-30] MEDS ORDERED: glipiZIDE 10 MG TAB ONE ×2 (11:21→20:16)
[2024-01-30] MEDS ORDERED: AMIODARONE 200 MG TAB ONE (11:21)
[2024-01-30 16:46] LABS: Glucose,Whole Blood 293 mg/dL (70-110)
[2024-01-30 20:07] LABS: Glucose,Whole Blood 317 mg/dL (70-110)
[2024-01-30] MEDS ORDERED: DILTIAZEM ORAL 60 MG TAB ONE (21:48)
[2024-01-31] MEDS ORDERED: DILTIAZEM ORAL 60 MG TAB ONE ×3 (00:01→20:34)
[2024-01-31 05:09] LABS: Glucose,Whole Blood 204 mg/dL (70-110)
[2024-01-31] MEDS ORDERED: INSULIN ASPART (NovoLOG) 100 UNIT/ML VIAL SQ ONE (06:23)
[2024-01-31] MEDS ORDERED: METOPROLOL TARTRATE 25 MG TAB ONE (09:31)
[2024-01-31] MEDS ORDERED: ASPIRIN 81 MG ONE (09:31)
[2024-01-31] MEDS ORDERED: FUROSEMIDE 10 MG/ML 4 ML VIAL ONE (09:32)
[2024-01-31] MEDS ORDERED: ATORVASTATIN 40 MG TAB ONE (09:32)
[2024-01-31] MEDS ORDERED: ISOSORBIDE MONONITRATE ER 30 MG TAB.ER.24H PO ONE (09:32)
[2024-01-31] MEDS ORDERED: glipiZIDE 10 MG TAB ONE ×2 (09:43→20:34)
[2024-01-31] MEDS ORDERED: AMIODARONE 200 MG TAB ONE (09:43)
[2024-01-31] MEDS ORDERED: FUROSEMIDE 40 MG TAB ONE (09:44)
[2024-01-31] MEDS ORDERED: DAPAGLIFLOZIN PROPANEDIOL 10 MG TABLET ONE (09:44)
[2024-01-31] MEDS ORDERED: PANTOPRAZOLE 40 MG/10 ML VIAL ONE (09:45)
[2024-01-31 16:35] LABS: Glucose,Whole Blood 303 mg/dL (70-110)
[2024-01-31 20:33] LABS: Glucose,Whole Blood 266 mg/dL (70-110)
[2024-01-31] MEDS ORDERED: METOPROLOL TARTRATE 50 MG TAB ONE ×2 (20:34)
[2024-02-01] MEDS ORDERED: DILTIAZEM ORAL 60 MG TAB ONE ×2 (00:01→20:32)
[2024-02-01] MEDS ORDERED: INSULIN ASPART (NovoLOG) 100 UNIT/ML VIAL SQ ONE ×3 (00:01→21:05)
[2024-02-01 06:13] LABS: Glucose,Whole Blood 204 mg/dL (70-110)
[2024-02-01] MEDS ORDERED: METOPROLOL TARTRATE 25 MG TAB ONE ×2 (10:54→23:15)
[2024-02-01] MEDS ORDERED: glipiZIDE 10 MG TAB ONE (20:32)
[2024-02-01] MEDS ORDERED: METOPROLOL TARTRATE 50 MG TAB ONE ×2 (23:15)
[2024-02-02] MEDS ORDERED: INSULIN ASPART (NovoLOG) 100 UNIT/ML VIAL SQ ONE ×2 (00:01→06:50)
[2024-02-02] MEDS ORDERED: METOPROLOL TARTRATE 25 MG TAB ONE (09:37)
[2024-02-02] MEDS ORDERED: ASPIRIN 81 MG ONE (09:37)
[2024-02-02] MEDS ORDERED: ATORVASTATIN 40 MG TAB ONE (09:38)
[2024-02-02] MEDS ORDERED: ISOSORBIDE MONONITRATE ER 30 MG TAB.ER.24H PO ONE (09:38)
[2024-02-02] MEDS ORDERED: PANTOPRAZOLE 40 MG/10 ML VIAL ONE (09:38)
[2024-02-02] MEDS ORDERED: glipiZIDE 10 MG TAB ONE ×2 (09:39→21:17)
[2024-02-02] MEDS ORDERED: DAPAGLIFLOZIN PROPANEDIOL 10 MG TABLET ONE (09:39)
[2024-02-02] MEDS ORDERED: AMIODARONE 200 MG TAB ONE (09:39)
[2024-02-02] MEDS ORDERED: FUROSEMIDE 40 MG TAB ONE (09:40)
[2024-02-02] MEDS ORDERED: HEPARIN SOD,PORK IN 0.45% NACL 250 ML IV ONE (11:23)
[2024-02-02 20:16] LABS: Glucose,Whole Blood 227 mg/dL (70-110)
[2024-02-03] MEDS ORDERED: INSULIN ASPART (NovoLOG) 100 UNIT/ML VIAL SQ ONE ×2 (06:31→21:12)
[2024-02-03] MEDS ORDERED: HEPARIN SOD,PORK IN 0.45% NACL PMX 25,000 UNIT/250 ML BAG IV ONE (06:36)
[2024-02-03] MEDS ORDERED: METOPROLOL TARTRATE 25 MG TAB ONE ×2 (08:25→21:12)
[2024-02-03] MEDS ORDERED: METOPROLOL TARTRATE 50 MG TAB ONE ×4 (08:25→21:12)
[2024-02-03] MEDS ORDERED: ASPIRIN 81 MG ONE (08:25)
[2024-02-03] MEDS ORDERED: ISOSORBIDE MONONITRATE ER 30 MG TAB.ER.24H PO ONE (08:26)
[2024-02-03] MEDS ORDERED: FUROSEMIDE 40 MG TAB ONE (08:26)
[2024-02-03] MEDS ORDERED: glipiZIDE 10 MG TAB ONE ×2 (08:26→17:36)
[2024-02-03] MEDS ORDERED: DAPAGLIFLOZIN PROPANEDIOL 10 MG TABLET ONE (08:26)
[2024-02-03] MEDS ORDERED: ATORVASTATIN 40 MG TAB ONE (08:26)
[2024-02-03] MEDS ORDERED: AMIODARONE 200 MG TAB ONE (08:26)
[2024-02-03] MEDS ORDERED: PANTOPRAZOLE 40 MG/10 ML VIAL ONE (08:26)
[2024-02-03] MEDS ORDERED: LACTATED RINGERS 1,000 ML BAG ONE (15:58)
[2024-02-03] MEDS ORDERED: LIDOCAINE 1% INJ 10MG/ML (20 ML MDV) ONE (16:10)
[2024-02-03] MEDS ORDERED: PROPOFOL 10 MG/ML 20 ML VIAL IV ONE (16:10)
[2024-02-03 20:16] LABS: Glucose,Whole Blood 204 mg/dL (70-110)
[2024-02-03] MEDS ORDERED: APIXABAN 2.5 MG TABLET ONE (21:12)
[2024-02-04] MEDS ORDERED: INSULIN ASPART (NovoLOG) 100 UNIT/ML VIAL SQ ONE ×4 (06:33→20:51)
[2024-02-04] MEDS ORDERED: ATORVASTATIN 40 MG TAB ONE (08:24)
[2024-02-04] MEDS ORDERED: METOPROLOL TARTRATE 50 MG TAB ONE ×6 (08:24→20:50)
[2024-02-04] MEDS ORDERED: ASPIRIN 81 MG ONE (08:24)
[2024-02-04] MEDS ORDERED: METOPROLOL TARTRATE 25 MG TAB ONE (08:24)
[2024-02-04] MEDS ORDERED: PANTOPRAZOLE 40 MG/10 ML VIAL ONE (08:24)
[2024-02-04] MEDS ORDERED: ISOSORBIDE MONONITRATE ER 30 MG TAB.ER.24H PO ONE (08:24)
[2024-02-04] MEDS ORDERED: AMIODARONE 200 MG TAB ONE (08:25)
[2024-02-04] MEDS ORDERED: glipiZIDE 10 MG TAB ONE ×2 (08:25→16:39)
[2024-02-04] MEDS ORDERED: APIXABAN 2.5 MG TABLET ONE ×2 (08:25→20:51)
[2024-02-04] MEDS ORDERED: DAPAGLIFLOZIN PROPANEDIOL 10 MG TABLET ONE (08:25)
[2024-02-04] MEDS ORDERED: FUROSEMIDE 40 MG TAB ONE (08:25)
[2024-02-04] MEDS ORDERED: DARBEPOETIN ALFA 40 MCG/0.4 ML SYRINGE ONE (09:00)
[2024-02-05] MEDS ORDERED: INSULIN ASPART (NovoLOG) 100 UNIT/ML VIAL SQ ONE ×2 (06:10→11:57)
[2024-02-05] MEDS ORDERED: FUROSEMIDE 40 MG TAB ONE (09:37)
[2024-02-05] MEDS ORDERED: ISOSORBIDE MONONITRATE ER 30 MG TAB.ER.24H PO ONE (09:37)
[2024-02-05] MEDS ORDERED: METOPROLOL TARTRATE 50 MG TAB ONE ×2 (09:37)
[2024-02-05] MEDS ORDERED: ATORVASTATIN 40 MG TAB ONE (09:37)
[2024-02-05] MEDS ORDERED: DAPAGLIFLOZIN PROPANEDIOL 10 MG TABLET ONE (09:38)
[2024-02-05] MEDS ORDERED: glipiZIDE 10 MG TAB ONE (09:38)
[2024-02-05] MEDS ORDERED: AMIODARONE 200 MG TAB ONE (09:38)
[2024-02-05] MEDS ORDERED: APIXABAN 2.5 MG TABLET ONE ×2 (09:38→09:51)
[2024-02-05] MEDS ORDERED: PANTOPRAZOLE 40 MG/10 ML VIAL ONE (09:43)
[2024-02-05] MEDS ORDERED: METOPROLOL TARTRATE 25 MG TAB ONE (11:57)
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
--- NOTE | 2024-02-26 14:34 | XR ---
EXAMINATION TYPE: XR chest 2V DATE OF EXAM: 01/27/2024 COMPARISON: Chest radiographs from 01/23/2024 TECHNIQUE: XR chest 2V Frontal and lateral views of the chest. CLINICAL INDICATION:Male, 78 years old with history of FEVER; FINDINGS: Lungs/Pleura: There is no evidence of pleural effusion, focal consolidation, or pneumothorax. Pulmonary vascularity: Unremarkable. Heart/mediastinum: Cardiomediastinal silhouette is enlarged and stable. Musculoskeletal: Multiple level degenerative disc disease changes seen throughout the spine. IMPRESSION: No acute cardiopulmonary disease/process.
== END 2024-02-05 16:16 | disposition home or self-care (01) | DRG 308 ==
LOC: EC 22:54 → 3SCARD 01-24 00:54
PROVIDERS: ADMIT Internal Medicine; ATTEND Internal Medicine
PROC: 0DJ08ZZ Inspection of Upper Intestinal Tract, Via Natural or Artificial Opening Endoscopic (ICD-10-PCS; principal; 2024-01-27 13:30)
DX: I48.0 Paroxysmal atrial fibrillation (principal); I50.23 Acute on chronic systolic (congestive) heart failure; J96.01 Acute respiratory failure with hypoxia; N17.9 Acute kidney failure, unspecified; I13.0 Hypertensive heart and chronic kidney disease with heart failure and stage 1 through stage 4 chronic kidney disease, or unspecified chronic kidney disease; R54 Age-related physical debility; D64.9 Anemia, unspecified; E11.22 Type 2 diabetes mellitus with diabetic chronic kidney disease; N18.30 Chronic kidney disease, stage 3 unspecified; I25.10 Atherosclerotic heart disease of native coronary artery without angina pectoris; I25.5 Ischemic cardiomyopathy; I44.7 Left bundle-branch block, unspecified; Z79.01 Long term (current) use of anticoagulants; Z79.82 Long term (current) use of aspirin; Z79.84 Long term (current) use of oral hypoglycemic drugs; Z79.899 Other long term (current) drug therapy; Z82.49 Family history of ischemic heart disease and other diseases of the circulatory system; Z85.46 Personal history of malignant neoplasm of prostate; Z87.891 Personal history of nicotine dependence; Z92.3 Personal history of irradiation; Z95.1 Presence of aortocoronary bypass graft; Z96.643 Presence of artificial hip joint, bilateral; Z98.42 Cataract extraction status, left eye; Z98.41 Cataract extraction status, right eye
CPT/HCPCS: 36415; 43235; 45378; 71045; 71046; 76770; 80048; 80053; 80069; 81003; 82607; 82728; 82746; 82784; 83540; 83550; 83605; 83735; 83880; 83883; 83921; 84165; 84484; 85025; 85027; 85610; 85652; 85730; 86038; 86334; 86431; 86850; 86900; 86901; 86920; 87040; 87635; 87636; 91110; 93005; 94660; 94760; 96374; 96375; 96376; 99291

== ENCOUNTER 2024-01-27 08:00 | Inpatient (IN) | payer MEDICARE ==
[2024-01-30] MEDS ORDERED: METOPROLOL TARTRATE 50 MG TAB ONE ×2 (11:33)
[2024-01-30] MEDS ORDERED: FUROSEMIDE 40 MG TAB ONE (11:33)
[2024-01-31] MEDS ORDERED: DILTIAZEM ORAL 60 MG TAB ONE (15:43)
[2024-01-31] MEDS ORDERED: INSULIN ASPART (NovoLOG) 100 UNIT/ML VIAL SQ ONE (16:54)
[2024-02-01] MEDS ORDERED: PANTOPRAZOLE 40 MG/10 ML VIAL ONE ×2 (09:08)
[2024-02-01] MEDS ORDERED: METOPROLOL TARTRATE 50 MG TAB ONE ×2 (09:08)
[2024-02-01] MEDS ORDERED: ATORVASTATIN 40 MG TAB ONE (09:09)
[2024-02-01] MEDS ORDERED: AMIODARONE 200 MG TAB ONE (09:09)
[2024-02-01] MEDS ORDERED: DILTIAZEM ORAL 60 MG TAB ONE (09:11)
[2024-02-01] MEDS ORDERED: FUROSEMIDE 40 MG TAB ONE (09:12)
[2024-02-01] MEDS ORDERED: ISOSORBIDE MONONITRATE ER 30 MG TAB.ER.24H PO ONE (09:12)
[2024-02-01] MEDS ORDERED: DAPAGLIFLOZIN PROPANEDIOL 10 MG TABLET ONE (09:13)
[2024-02-01] MEDS ORDERED: glipiZIDE 10 MG TAB ONE (09:13)
[2024-02-02] MEDS ORDERED: METOPROLOL TARTRATE 50 MG TAB ONE ×2 (21:25)
[2024-02-02] MEDS ORDERED: INSULIN ASPART (NovoLOG) 100 UNIT/ML VIAL SQ ONE (21:26)
[2024-02-15] MEDS: ASPIRIN 325 MG TAB PO ONE (06:22)
[2024-02-15] MEDS: METOPROLOL TARTRATE 12.5 MG TAB PO ONE (06:23)
[2024-02-15] MEDS: ATORVASTATIN 10 MG TAB PO ONE (06:23)
[2024-02-15] MEDS: IV FLUID CONTINUATION 1,000 ML IV ONE (06:24)
[2024-02-15] MEDS: LIDOCAINE 1% (10MG/ML) FOR IV START INTRADERMA STA (06:24)
[2024-02-15] MEDS: LACTATED RINGERS 1,000 ML IV ONE (06:26)
[2024-02-15 06:50] LABS: Glucose,Whole Blood 198 mg/dL (70-110)
[2024-02-15] MEDS ORDERED: TRANEXAMIC 1,000 MG/100ML-NACL PREMIX BAG ONE (07:33)
[2024-02-15] MEDS ORDERED: PROTAMINE SULFATE 10 MG/ML 25 ML VIAL IV ONE (07:33)
[2024-02-15] MEDS ORDERED: fentaNYL (PF) 50 MCG/ML 50 ML VIAL ONE (07:33)
[2024-02-15] MEDS ORDERED: VECURONIUM 10 MG VIAL IV ONE (07:33)
[2024-02-15] MEDS ORDERED: LIDOCAINE 2% SYG (PF) 100 MG/5 ML ONE (07:33)
[2024-02-15] MEDS ORDERED: HEPARIN SODIUM,PORCINE 10,000 UNIT/ML 1 ML VIAL ONE ×2 (07:33)
[2024-02-15] MEDS ORDERED: NOREPINEPHRINE 1 MG/ML 4 ML VIAL IV ONE (07:33)
[2024-02-15] MEDS ORDERED: PHENYLEPHRINE 10 MG/ML VIAL ONE (07:33)
[2024-02-15] MEDS ORDERED: ALBUMIN HUMAN 5% (25gm) 500 ML VIAL IVPB ONE (07:33)
[2024-02-15] MEDS ORDERED: MIDAZOLAM HCL 10 MG/10 ML VIAL ONE (07:33)
[2024-02-15] MEDS ORDERED: CALCIUM CHLORIDE 100 MG/ML 10 ML SYRINGE ONE (07:33)
[2024-02-15] MEDS ORDERED: PROPOFOL 10 MG/ML 20 ML VIAL IV ONE (07:33)
[2024-02-15 07:48] LABS: Glucose,Whole Blood 187 mg/dL (70-110)
[2024-02-15 08:05] LABS: Glucose,Whole Blood 157 mg/dL (70-110)
[2024-02-15 08:44] LABS: ABG Glucose Whole Blood 94 mg/dL (75-99); ABG HCO3 23 mmol/L (21-25); ABG Ionized Calcium 4.7 mg/dL (4.5-5.3); ABG Lactic Acid Whole Blood 1.3 mmol/L (0.5-1.6); ABG PCO2 37 mmHg (35-45); ABG PH 7.41 (7.35-7.45); ABG PO2 229 mmHg (83-108); ABG Potassium Whole Blood 3.1 mmol/L (3.4-4.5); ABG Sodium Whole Blood 141 mmol/L (135-146)
[2024-02-15] MEDS: PAPAVERINE 360 MG in SODIUM CHLORIDE 0.9% 90 ML IV ONE (09:38)
[2024-02-15] MEDS: ceFAZolin 1,000 MG in SODIUM CHLORIDE 0.9% IRRIGATIO 1,000 ML IRRIGATION ONE (09:38)
--- NOTE | 2024-02-15 09:45 | P.ANPRN ---
Procedure Note - Anesthesia - Invasive Line Right Central Line Time Out Performed: Yes ([id number]) Date of Procedure: 02/15/24 Time of Procedure: 07:11 Location of Patient: Phase I Preparation: Sterile Prep, Sterile Dressing Central Line Location: Internal Jugular (right IJ) Ultrasound Used: Yes Purpose - Visualization and Identification of Vasculature: Yes Needle Guage: 18g Image Stored and Saved: Yes Narrative: Invasive line placement per sterile protocol utilized. Anesthesia note Procedure: Right internal jugular central venous catheter insertion: 8.5-Hungarian Cordis Sterile protocol followed. Right neck prepped. Ultrasound used. Lidocaine 1% used. Using ultrasound local anesthetic was instilled site over right Internal Jugular vein. Angiocath was used to gain access via ultrasound. Once free flow non-pulsatile blood flow was confirmed, 12 inch extension tubing was then placed on Angiocath. Once central venous pressure was confirmed, J-wire was then placed through Angiocath. Angiocath was then withdrawn. Local was instilled at J-wire site. Small skin graciela was then made with provided sterile scalpel. 8.5- Hungarian Cordis was then inserted over the wire while maintaining control of wire at all times. Uneventful insertion with dilation. Free flow nonpulsatile blood flow through Cordis. Hooked up to IV tubing. Secured with suture. Dressings applied. Drapes Removed. Attempts x1.
--- NOTE | 2024-02-15 09:46 | P.ANPRN ---
Procedure Note - Anesthesia - Invasive Line Right [place] Julius Time Out Performed: Yes ([id number]) Date of Procedure: 02/15/24 Time of Procedure: 07:23 Location of Patient: Phase I Preparation: Sterile Prep, Sterile Dressing [place] Julius Line Location: Internal Jugular (Right) Ultrasound Used: No Purpose - Visualization and Identification of Vasculature: No Image Stored and Saved: No Narrative: Invasive line placement per sterile protocol utilized. Anesthesia note Procedure right [place]-Julius catheter placed through central venous catheter Sterile protocol maintained from previous procedure. [place]-Julius catheter sterilely placed in sheath and flushed prior to insertion. After advancing 15 cm [place]-Julius catheter was then slowly inserted with balloon up. Advanced through CVP, RV to PA waveform. [place]-Julius catheter wedged around 51 cm. Balloon down. Catheter withdrawn 5 cm. . No wedge. Proximal and distal sites locked on sheath. Attempts x1. Sterile drapes removed and dressings applied.
--- NOTE | 2024-02-15 09:48 | P.ANPRN ---
Procedure Note - Anesthesia - TIFFANY Intraop Pre Bypass TIFFANY Intraop - Anesthesia Indication: CABG, Mitral Repair Date of Procedure: 02/15/24 Pre-operative Diagnosis: CAD, Mitral Regurgitation Post-operative Diagnosis: CAD, Mitral Regurgitation Surgeon: Hunter Das Left Ventricle: No RWMA, EF 45-50, Ejection Fraction: Other (slightly decreased) Regional Wall Motion Abnormalities: None Left Ventricle Hypertrophy: No R. Ventricle Function: Normal Anatomy: Trileaflet Aortic Stenosis: None Aortic Regurgitation: None Mitral Stenosis: None Mitral Regurgitation: Moderate Tricuspid Stenosis: None Tricuspid Regurgitation: None Pulmonic Stenosis: None Pulmonic Regurgitation: None R. Atrial Dilation: No R. Atrial PFO: No L. Atrial Dilation: Yes Aorta: Balloon pump in place just distal to the subclavian takeoff Aortic Dissection: No Aortic Calcification: None Plural Effusion: None
[2024-02-15 10:06] LABS: ABG Base Excess -2.1 mmol/L; ABG Glucose Whole Blood 90 mg/dL (75-99); ABG HCO3 23 mmol/L (21-25); ABG Hematocrit 29 % (34.0-46.0); ABG Ionized Calcium 4.6 mg/dL (4.5-5.3); ABG Lactic Acid Whole Blood 1.1 mmol/L (0.5-1.6); ABG Oxygen Saturation >99.4 % (94-97); ABG PCO2 40 mmHg (35-45); ABG PH 7.37 (7.35-7.45); ABG PO2 297 mmHg (83-108); ABG Potassium Whole Blood 3.3 mmol/L (3.4-4.5); ABG Sodium Whole Blood 140 mmol/L (135-146)
[2024-02-15 10:36] LABS: ABG Base Excess 3.2 mmol/L; ABG Glucose Whole Blood 121 mg/dL (75-99); ABG HCO3 26 mmol/L (21-25); ABG Hematocrit 27 % (34.0-46.0); ABG Ionized Calcium 3.8 mg/dL (4.5-5.3); ABG Lactic Acid Whole Blood 1.3 mmol/L (0.5-1.6); ABG Oxygen Saturation >99.4 % (94-97); ABG PCO2 33 mmHg (35-45); ABG PH 7.51 (7.35-7.45); ABG Potassium Whole Blood 3.3 mmol/L (3.4-4.5); ABG Sodium Whole Blood 145 mmol/L (135-146)
[2024-02-15] MEDS: ALBUMIN HUMAN 25% 50 ML IV ONE (10:54)
[2024-02-15] MEDS: CARDIOPLEGIC SOLN (K+ 16 MEQ/L 1,000 ML with SODIUM BICARB (1 MEQ/ML) 20 ML, LIDOCAINE ... PERFUSION ONE (10:55)
[2024-02-15] MEDS: CALCIUM CHLORIDE 100 MG/ML 10 ML SYRINGE IV ONE (10:55)
[2024-02-15] MEDS: CLEVIDIPINE BUTYRATE 25 MG in EMPTY BAG 1 BAG IV ONE (10:55)
[2024-02-15] MEDS: CHLORHEXIDINE GLUCONATE 15 ML CUP MUCOUS MEM ONE (10:55)
[2024-02-15] MEDS: HEPARIN SODIUM 1,000 UN/ML (10ML VL) IV ONE (10:55)
[2024-02-15] MEDS: ALBUMIN HUMAN 5% 500 ML IVPB ONE (10:55)
[2024-02-15] MEDS: MAGNESIUM SULFATE 16.24 MEQ in EMPTY SYRINGE 1 SYR IV ONE (10:56)
[2024-02-15] MEDS: INSULIN REGULAR 100 UNIT in SODIUM CHLORIDE 0.9% 100 ML IV ONE (10:56)
[2024-02-15] MEDS: MANNITOL 25% 12.5 GM/50 ML VIAL IV ONE (10:56)
[2024-02-15] MEDS: HEPARIN SODIUM,PORCINE (1 ML) 5,000 UNIT in SODIUM CHLORIDE 0.9% 500 ML 500 ML IV ONE (10:56)
[2024-02-15] MEDS: PHENYLEPHRINE 10 MG/ML VIAL IV ONE (10:57)
[2024-02-15] MEDS: PHENYLEPHRINE 40 MG in SODIUM CHLORIDE 0.9% 250 ML IV ONE (10:57)
[2024-02-15] MEDS: NITROGLYCERIN-D5W PMX 50 MG in DEXTROSE/WATER 1 250ML.BAG IV ONE (10:57)
[2024-02-15] MEDS: NITROGLYCERIN SL TABS 0.4 MG TAB SUBLINGUAL ONE (10:57)
[2024-02-15] MEDS: NOREPINEPHRINE 4 MG in SODIUM CHLORIDE 0.9% 250 ML IV ONE (10:57)
[2024-02-15] MEDS: NITROGLYCERIN-D5W PMX 25 MG/250 ML BTL IV ONE (10:57)
[2024-02-15] MEDS: PROTAMINE SULFATE 250 MG in EMPTY BAG 1 BAG IV ONE (10:58)
[2024-02-15] MEDS: PROTAMINE SULFATE 10 MG/ML 25 ML VIAL IV ONE (10:58)
[2024-02-15] MEDS: SODIUM BICARB 8.4% 50 ML SYR (1 MEQ/ML) IV ONE (10:58)
[2024-02-15] MEDS: SODIUM CHLORIDE 0.9% 1,000 ML IV ONE (10:58)
[2024-02-15] MEDS: propofoL 1,000 MG/100 ML VIAL IV ONE (10:58)
[2024-02-15] MEDS: TRANEXAMIC ACID 2,000 MG in SODIUM CHLORIDE 0.9% 80 ML IV ONE (10:59)
[2024-02-15 11:07] LABS: ABG Base Excess 1.3 mmol/L; ABG Glucose Whole Blood 102 mg/dL (75-99); ABG HCO3 25 mmol/L (21-25); ABG Hematocrit 26 % (34.0-46.0); ABG Ionized Calcium 4.2 mg/dL (4.5-5.3); ABG Oxygen Saturation >99.4 % (94-97); ABG PCO2 35 mmHg (35-45); ABG PH 7.46 (7.35-7.45); ABG Potassium Whole Blood 3.8 mmol/L (3.4-4.5); ABG Sodium Whole Blood 141 mmol/L (135-146)
[2024-02-15 11:18] LABS: ABG Base Excess 1.1 mmol/L; ABG Hematocrit 28 % (34.0-46.0)
[2024-02-15 11:19] LABS: ABG Oxygen Saturation 99.4 % (94-97)
[2024-02-15 11:20] LABS: ABG PO2 >420 mmHg (83-108)
[2024-02-15 11:20] LABS: ABG PO2 >420 mmHg (83-108)
[2024-02-15 12:00] LABS: ABG Glucose Whole Blood 120 mg/dL (75-99); ABG HCO3 24 mmol/L (21-25); ABG Ionized Calcium 4.2 mg/dL (4.5-5.3); ABG PCO2 43 mmHg (35-45); ABG PH 7.36 (7.35-7.45); ABG PO2 229 mmHg (83-108); ABG Sodium Whole Blood 140 mmol/L (135-146)
[2024-02-15 12:12] LABS: ABG Glucose Whole Blood 126 mg/dL (75-99); ABG HCO3 25 mmol/L (21-25); ABG Ionized Calcium 4.2 mg/dL (4.5-5.3); ABG Lactic Acid Whole Blood 0.8 mmol/L (0.5-1.6); ABG PCO2 60 mmHg (35-45); ABG PH 7.23 (7.35-7.45); ABG Potassium Whole Blood 3.8 mmol/L (3.4-4.5); ABG Sodium Whole Blood 142 mmol/L (135-146)
[2024-02-15 12:33] LABS: ABG Glucose Whole Blood 150 mg/dL (75-99); ABG HCO3 22 mmol/L (21-25); ABG Ionized Calcium 4.1 mg/dL (4.5-5.3); ABG Lactic Acid Whole Blood 1.3 mmol/L (0.5-1.6); ABG PCO2 34 mmHg (35-45); ABG PH 7.42 (7.35-7.45); ABG Potassium Whole Blood 4.2 mmol/L (3.4-4.5); ABG Sodium Whole Blood 140 mmol/L (135-146)
[2024-02-15 13:15] LABS: ABG Base Excess -1.2 mmol/L; ABG Hematocrit 25 % (34.0-46.0); ABG Oxygen Saturation 99.4 % (94-97)
[2024-02-15 13:16] LABS: ABG Base Excess -2.7 mmol/L; ABG Hematocrit 25 % (34.0-46.0); ABG Oxygen Saturation 99.4 % (94-97); ABG PO2 >420 mmHg (83-108)
[2024-02-15 13:17] LABS: ABG PO2 >420 mmHg (83-108)
[2024-02-15 13:18] LABS: ABG Hematocrit 26 % (34.0-46.0); ABG Oxygen Saturation 99.4 % (94-97)
[2024-02-15 13:19] LABS: ABG Base Excess -4.4 mmol/L; ABG Glucose Whole Blood 140 mg/dL (75-99); ABG HCO3 21 mmol/L (21-25); ABG Ionized Calcium 4.7 mg/dL (4.5-5.3); ABG Lactic Acid Whole Blood 1.4 mmol/L (0.5-1.6); ABG Oxygen Saturation >99.4 % (94-97); ABG PCO2 41 mmHg (35-45); ABG PH 7.32 (7.35-7.45); ABG PO2 327 mmHg (83-108); ABG Potassium Whole Blood 3.4 mmol/L (3.4-4.5); ABG Sodium Whole Blood 141 mmol/L (135-146)
[2024-02-15 13:21] LABS: ABG Hematocrit 23 % (34.0-46.0)
--- NOTE | 2024-02-15 13:45 | P.ANPRN ---
Procedure Note - Anesthesia - TIFFANY Intraop Post Bypass TIFFANY Intraop Post Bypass Procedure Performed: CABG, Mitral Ring Left Ventricle: unchanged Ejection Fraction: Other (45-50) Regional Wall Motion Abnormalities: None R. Ventricle Function: Normal Aortic Valve: Unchanged Aortic Valve: trace residual regurgitation. Mean residual gradient 1-2 Tricuspid: Unchanged Pulmonic: Unchanged Aortic Dissection: No
[2024-02-15 14:00] LABS: ABG Glucose Whole Blood 154 mg/dL (75-99); ABG HCO3 20 mmol/L (21-25); ABG Ionized Calcium 3.9 mg/dL (4.5-5.3); ABG Lactic Acid Whole Blood 0.9 mmol/L (0.5-1.6); ABG PCO2 39 mmHg (35-45); ABG PH 7.32 (7.35-7.45); ABG Potassium Whole Blood 4.2 mmol/L (3.4-4.5); ABG Sodium Whole Blood 141 mmol/L (135-146); Allen Test Performed? Yes
[2024-02-15 14:05] LABS: ABG Base Excess 5.7 mmol/L; ABG Hematocrit 27 % (34.0-46.0); ABG Oxygen Saturation 99.4 % (94-97); ABG PO2 >420 mmHg (83-108)
[2024-02-15] MEDS ORDERED: AMIODARONE 450 MG in DEXTROSE 5% IN WATER 250 ML IV PRN (14:10)
[2024-02-15] MEDS ORDERED: METOCLOPRAMIDE 5 MG/ML 2 ML VIAL IVP PRN (14:10)
[2024-02-15] MEDS ORDERED: DEXMEDETOMIDINE/0.9% NACL(PMX) 400 MCG in EMPTY BAG 1 BAG IV SCH (14:10)
[2024-02-15] MEDS ORDERED: Magnesium Replacement Protocol 1 EACH MISC MISCELLANE PRN (14:10)
[2024-02-15] MEDS ORDERED: BENZOCAINE/MENTHOL LOZENG 1 EACH LOZENGE MUCOUS MEM PRN (14:10)
[2024-02-15] MEDS ORDERED: Phosphorus Replacement Protoco 1 EACH MISC MISCELLANE PRN (14:10)
[2024-02-15] MEDS ORDERED: hydrALAZINE HCL 20 MG/ML 1 ML VIAL IVP PRN (14:10)
[2024-02-15] MEDS ORDERED: AMIODARONE 360 MG in DEXTROSE 5% IN WATER 200 ML IV PRN (14:10)
[2024-02-15] MEDS ORDERED: ONDANSETRON 4 MG/2 ML VIAL IVP PRN (14:10)
[2024-02-15] MEDS ORDERED: DEXTROSE 5% IN WATER 100 ML with AMIODARONE 150 MG IV PRN (14:10)
[2024-02-15] MEDS ORDERED: DEXTROSE 50% SYRINGE 50 ML IVP PRN ×2 (14:10)
[2024-02-15] MEDS ORDERED: Potassium Replacement Protocol 1 EACH MISC MISCELLANE PRN (14:10)
[2024-02-15] MEDS: IPRATROPIUM-ALBUTEROL 3 ML NEB INHALATION SCH ×2 (14:31→21:00)
[2024-02-15 14:46] LABS: Glucose,Whole Blood 173 mg/dL (70-110)
[2024-02-15] MEDS: SODIUM CHLORIDE 0.9% 1,000 ML IV SCH (14:47)
[2024-02-15] MEDS: INSULIN REGULAR 100 UNIT in SODIUM CHLORIDE 0.9% 100 ML IV SCH (14:51)
--- NOTE | 2024-02-15 14:56 | P.OP ---
Date of Procedure: 02/15/24 Preoperative Diagnosis: Congestive heart failure, mitral regurgitation, coronary artery disease, atrial fibrillation Postoperative Diagnosis: Same Procedure(s) Performed: Coronary artery bypass grafting x 3 with POSADA to LAD, sequential saphenous vein graft to first and second obtuse marginal coronary arteries, endovascular vein harvest, mitral valve repair with 28 mm annular flex band, percutaneous placement of intra-aortic balloon pump via right common femoral artery, modified Vazquez-Maze with complete left-sided lesion set using RF and cryoablation both epi and intracardiac, and ligation of the left atrial appendage with 2 layer suture closure. Implants: 28 mm annular flex mitral band with core knots Anesthesia: GETA Surgeon: Hunter Das Maritime Engineer #1: Hiram Kearney Maritime Engineer #2: Hans Mauricio Estimated Blood Loss (ml): 1,000 IV fluids (ml): 2,000 Urine output (ml): 800 Pathology: none sent Condition: critical Disposition: ICU Indications for Procedure: 78-year-old male presented initially with congestive heart failure. He he was found to have severe mitral regurgitation left ventricular systolic dysfunction and severe two-vessel coronary artery disease involving the LAD and circumflex coronary arteries. He was treated medically stabilized and seen in the office and felt appropriate for surgery and scheduled for CABG and mitral valve repair. He Brain presented a few days prior to his scheduled surgery and recurrent congestive heart failure with a hemoglobin of 5.5. He remained in hospital for the next 2 weeks and was eventually discharged. During this hospital stay he developed atrial fibrillation. He was seen back in the office a week after his hospitalization and felt to be in worse shape than before the hospitalization but good enough shape that an attempted surgery was reasonable. His options appeared very limited. Patient was high risk and this was discussed extensively. Operative Findings: Preoperative TIFFANY demonstrated reasonable left ventricular function with 3+ central mitral regurgitation from multiple sites due to mild coaptation. Coronary arteries revealed diffuse coronary disease with significant calcifications present proximally. We were able to cannulate the right common femoral artery but could not thread a sheathless balloon pump and ended up placing a sheath and even with the sheath in place it was difficult to place the balloon pump for some reason. Balloon pump was appropriately positioned using TIFFANY. Examination nation of the mitral valve and revealed intact mitral mechanisms with annular dilatation posteriorly. TIFFANY following the procedure demonstrated relatively normal ventricular function with trace to no MR. Description of Procedure: Patient was brought to the operating room and placed supine on the operating table. General anesthesia was induced. TIFFANY probe was placed. Patient was intubated. Patient was appropriately positioned for heart surgery. Standard prep and drape was performed. Right femoral artery was cannulated under ultrasound guidance and a guidewire threaded into the descending thoracic aorta under ultrasound guidance. Attempts to place a percutaneous sheathless balloon were unsuccessful but we were able to place the sheath and placed the balloon through the sheath and positioned it appropriately just proximal to the left subclavian artery. Balloon pump was initiated and excellent balloon pump function was noted. Greater saphenous vein was harvested using endoscopic vein harvest technique from the left lower extremity and was of excellent quality. Simultaneous sternotomy was performed and the left internal mammary artery harvested on a vascularized pedicle left intact on its origin from the subclavian and divided distally. It was also of good quality. Standard sternal retractor was placed and the pericardium was opened in the midline. Left pleural space was drained with a 32 Monegasque chest tube. Heart was exposed with pericardial sutures. Patient was systemically heparinized. Patient was cannulated for cardiopulmonary bypass with a 7 mm soft flow cannula in the dis savanah ascending aorta a 30 M[place]gasque right angle cannula in the superior vena cava and a 34 [place]gas[place] venous cannula through the right atrium into the inferior vena cava. Antegrade and retrograde cardioplegia lines were placed in standard fashion. Patient was placed on cardiopulmonary bypass and stabilized. Caval tapes were passed. Dissection was carried out around the right-sided pulmonary veins and the left atrium was ablated at the entry of the right sided pulmonary veins with multiple firings of the RF clamp. Next the left pulmonary veins were encircled with blunt dissection using a finger and the left atrium ablated at the entrance of the left pulmonary veins using multiple firings of the AtriCure RF clamp. Coronary targets were identified. The LAD was intramyocardial and was identified fairly proximally at the junction of the proximal and middle third of the anterior wall. 2 circumflex targets were identified. The aorta was crossclamped and the heart arrested with cold crystalloid antegrade cardioplegia followed by retrograde cardioplegia. Intermittent doses retrograde cardioplegia were given at appropriate intervals during the case. Second obtuse marginal coronary artery was opened. It was heavily calcified proximally. It excepted a 1.5 mm probe distally. End-to-side anastomosis between the saphenous vein and the first obtuse marginal coronary artery was performed with running 7- 0 Prolene suture. On completion of the anastomosis the suture was tied and was flushed with cold blood cardioplegia with excellent hemostasis. Plegia flowed easily. Next [id number]-iw-[id number] anastomosis between the same saphenous vein and the first obtuse marginal was performed. Obtuse marginal was opened and excepted a 1.5 mm probe distally. It would not except the probe proximally due to heavy calcific disease. Ebkh-yi-[id number] anastomosis was constructed in longitudinal fashion with running 7-0 Prolene suture. On completion of the anastomosis the distal jump to the second OM was temporarily occluded with a bulldog clamp suture was tied with good result and hemostasis the graft was flushed with cold blood cardioplegia and flushed easily. Bulldog clamp was removed. Heart was l owered in anatomic position. Vein graft was cut to appropriate length to reach the ascending aorta. Next the POSADA was tunneled into the mediastinum. LAD was opened and excepted a 1.5 mm probe distally. Was 1.5 mm vessel. It was heavily calcified proximally and the probe would not pass proximally. End-to-side anastomosis between the POSADA and the LAD was performed with running 8-0 Prolene suture. On completion of the anastomosis it was opened and noted to be hemostatic. Was immediately reoccluded with a bulldog clamp. ELIE pedicle was tacked surrounding epicardium with 6-0 silk sutures. The interatrial groove was now developed. Left atrium was entered through the interatrial groove and the mitral valve exposed with a Evangelist retractor. Exposure was very difficult due to long narrow left atrium had LVH. We began by closing the left atrial appendage with a 2 layer running closure of 3-0 Prolene suture. Next we ablated the posterior atrial wall with the RF clamp extending just prior to the mitral annulus. This lesion was then completed with the cryoprobe. Cryo lesions were also performed on the roof and floor connecting the pulmonary vein ablation sites using the cryoprobe. The final ablation was performed epicardially on the coronary sinus. The mitral valve was examined and central regurgitation was noted. All of the chordal apparatus was intact. Circumferential sutures of 2-0 Tycron were placed from trigone to trigone and the anterior leaflet was sized. 28 mm annular flex ring was chosen and cut to use as a band. Valve sutures were placed through the band and it was seated without difficulty. It was secured in place with core knots. The valve was retested and noted to be competent. The atrium was closed with single layer running 3-0 Prolene suture and de-aired prior to tying closed. We now performed the proximal anastomosis of the vein graft to the ascending aorta using a 4 mm punch hole and 6-0 Prolene suture. On completion of this the patient was placed in Trendelenburg and the cross-clamp removed. Atrial and ventricular wires were placed and the patient was paced. Retrograde cardioplegia line was removed and the inferior vena caval cannula pulled back into the right atrium. The superior vena caval line was removed. De-airing was monitored with TIFFANY and noted to be excellent. The patient was weaned from cardiopulmonary bypass with the use of some Primacor and Levophed. TIFFANY demonstrated no significant MR. Left ventricular function was good. Patient was decannulated in standard fashion. Aortic cannulation site was reinforced with 4 oh pledgeted Prolene suture. Patient was quite volume dependent. He received 2 units of blood in the initial prime of the pump and 1 more unit of blood after separation from cardiopulmonary bypass. He also received fresh frozen and platelets. With this volume support he stabilized nicely. Good hemostasis was obtained throughout. The chest was irrigated with antibiotic solution. The mediastinum was drained with 236 Monegasque chest tubes. Once good hemostasis had been assured the chest was closed with 7 sternal wires. Fascia was closed with 0 Ethibond. Subcutaneous and subcuticular layers and the leg and chest were closed with layers of Vicryl suture. Dry sterile dressings were applied the patient was transferred to the ICU in stable condition.
[2024-02-15 14:58] LABS: Anisocytosis Slight; Basophils % (A) 0 %; Eosinophils # (A) 0.1 k/uL (0-0.7); Eosinophils % (A) 1 %; HCT 29.1 % (39.0-53.0); HGB 9.7 gm/dL (13.0-17.5); Hypochromasia Marked; Lymphocytes # (A) 0.8 k/uL (1.0-4.8); Lymphocytes % (A) 12 %; MCH 29.7 pg (25.0-35.0); MCHC 33.2 g/dL (31.0-37.0); Mean Platelet Volume 9.3; Monocytes # (A) 0.2 k/uL (0-1.0); Monocytes % (A) 2 %; Neutrophils # (A) 5.8 k/uL (1.3-7.7); Neutrophils % (A) 84 %; Platelet Count 153 k/uL (150-450); Poikilocytosis Slight; RBC 3.25 m/uL (4.30-5.90); RDW 17.5 % (11.5-15.5)
[2024-02-15 15:11] LABS: MCV 89.4 fL (80.0-100.0)
[2024-02-15 15:15] LABS: ABG Base Excess -2.5 mmol/L; ABG HCO3 23 mmol/L (21-25); ABG Oxygen Saturation 100.5 % (94-97); ABG PCO2 40 mmHg (35-45); ABG PH 7.36 (7.35-7.45); ABG PO2 204 mmHg (83-108); ABG TCO2 24 mmol/L (19-24); Allen Test Performed? Yes
[2024-02-15 15:20] LABS: INR 1.3 (<1.2); Partial Thromboplastin Time 28.6 sec (22.0-30.0); Prothrombin Time 13.6 sec (10.0-12.5)
[2024-02-15 15:25] LABS: ALT 95 U/L (4-49); AST 194 U/L (17-59); African American GFR (CKD) 48 (>60 ml/min/1.73 sqM); Albumin 2.8 g/dL (3.5-5.0); Alkaline Phosphatase 56 U/L (38-126); Anion Gap 7 mmol/L; Blood Urea Nitrogen 33 mg/dL (9-20); Carbon Dioxide 23 mmol/L (22-30); Chloride 111 mmol/L (98-107); Glucose 149 mg/dL (74-99); Non-African American GFR(CKD) 41 (>60 ml/min/1.73 sqM); Potassium 3.9 mmol/L (3.5-5.1); Sodium 141 mmol/L (137-145); Total Bilirubin 2.2 mg/dL (0.2-1.3); Total Protein 4.5 g/dL (6.3-8.2)
[2024-02-15] MEDS: ALBUMIN HUMAN 5% 250 ML in EMPTY BAG 1 BAG IVPB PRN (15:28)
--- NOTE | 2024-02-15 15:29 | XR ---
EXAMINATION TYPE: XR chest 1V portable DATE OF EXAM: 02/15/2024 3:16 PM CLINICAL INDICATION: Male, 78 years old with history of Post Operative Cardiac Surgery; [facility] COMPARISON: Chest radiographs from 01/23/2024 TECHNIQUE: XR chest 1V portable Frontal view of the chest. FINDINGS: Lungs/Pleura: There is no evidence of pleural effusion, focal consolidation, or pneumothorax. Pulmonary vascularity: Pulmonary vascular congestion. Heart/mediastinum: Cardiomediastinal silhouette is enlarged. Musculoskeletal: No acute osseous pathology. Other findings: None Lines/Tubes: Endotracheal tube with distal tip 2.6 above the clark. Nasogastric tube with its distal tip and side-port projecting under the diaphragm. There is a [place]-Julius catheter with tip projecting over the spine. Drainage tubes with tips projecting over the mediastinum. Left thoracotomy tube is present without evidence of pneumothorax. IMPRESSION: Post operative changes with mild pulmonary edema cardiomegaly. No pneumothorax visualized.
[2024-02-15 15:46] LABS: Glucose,Whole Blood 170 mg/dL (70-110)
[2024-02-15 16:34] LABS: Glucose,Whole Blood 160 mg/dL (70-110)
[2024-02-15] MEDS: MILRINONE-D5W PMX 20 MG in DEXTROSE/WATER 1 100ML.BAG IV SCH (16:36)
[2024-02-15] MEDS: NOREPINEPHRINE 4 MG in SODIUM CHLORIDE 0.9% 250 ML IV SCH (16:36)
[2024-02-15] MEDS: ACETAMINOPHEN IV (For NPO) 1,000 MG in EMPTY BAG 1 BAG IVPB SCH (16:37)
[2024-02-15] MEDS: MENTHOL-ZINC OXIDE OINT 113 GM TUBE TOPICAL SCH (16:37)
[2024-02-15] MEDS: CLEVIDIPINE BUTYRATE 25 MG in EMPTY BAG 1 BAG IV SCH (16:38)
[2024-02-15] MEDS: HEPARIN SODIUM,PORCINE 5,000 UNIT/ML 1 ML VIAL SQ SCH (17:00)
[2024-02-15 17:21] LABS: Glucose,Whole Blood 152 mg/dL (70-110)
[2024-02-15 17:35] LABS: Anisocytosis Slight; Basophils % (A) 0 %; Eosinophils # (A) 0.1 k/uL (0-0.7); Eosinophils % (A) 1 %; HCT 21.7 % (39.0-53.0); Hypochromasia Marked; Lymphocytes # (A) 0.6 k/uL (1.0-4.8); Lymphocytes % (A) 11 %; MCH 29.3 pg (25.0-35.0); MCHC 32.7 g/dL (31.0-37.0); MCV 89.7 fL (80.0-100.0); Mean Platelet Volume 9.5; Monocytes # (A) 0.2 k/uL (0-1.0); Monocytes % (A) 4 %; Neutrophils # (A) 4.8 k/uL (1.3-7.7); Neutrophils % (A) 83 %; Platelet Count 127 k/uL (150-450); Poikilocytosis Slight; RBC 2.42 m/uL (4.30-5.90); RDW 17.6 % (11.5-15.5); WBC 5.8 k/uL (3.8-10.6)
[2024-02-15] MEDS: POTASSIUM BICARBONATE/CIT AC 20 MEQ TABLET.EFF NG-TUBE SCH (17:41)
[2024-02-15] MEDS: CALCIUM GLUCONATE IN NACL 2 GM in SALINE 1 100ML.BAG IVPB PRN (17:46)
[2024-02-15 17:49] LABS: HGB 7.1 gm/dL (13.0-17.5)
[2024-02-15 18:50] LABS: Glucose,Whole Blood 131 mg/dL (70-110)
[2024-02-15 19:43] LABS: Glucose,Whole Blood 112 mg/dL (70-110)
[2024-02-15 20:42] LABS: Anisocytosis Slight; Basophils % (A) 0 %; Eosinophils # (A) 0.2 k/uL (0-0.7); Eosinophils % (A) 3 %; HCT 25.6 % (39.0-53.0); HGB 8.5 gm/dL (13.0-17.5); Hypochromasia Slight; Lymphocytes # (A) 0.6 k/uL (1.0-4.8); Lymphocytes % (A) 10 %; MCH 30.2 pg (25.0-35.0); MCHC 32.9 g/dL (31.0-37.0); MCV 91.6 fL (80.0-100.0); Mean Platelet Volume 10.8; Monocytes # (A) 0.2 k/uL (0-1.0); Monocytes % (A) 4 %; Neutrophils # (A) 5.1 k/uL (1.3-7.7); Neutrophils % (A) 83 %; Platelet Count 113 k/uL (150-450); Poikilocytosis Slight; RDW 17.5 % (11.5-15.5); WBC 6.1 k/uL (3.8-10.6)
[2024-02-15 21:01] LABS: Glucose,Whole Blood 137 mg/dL (70-110)
[2024-02-15] MEDS: TIMOLOL 0.5% OPHTH DROPS 5 ML BTL BOTH EYES SCH (21:16)
[2024-02-15 21:57] LABS: Glucose,Whole Blood 154 mg/dL (70-110)
[2024-02-15 22:01] LABS: Anisocytosis Slight; Basophils % (A) 0 %; Eosinophils # (A) 0.1 k/uL (0-0.7); Eosinophils % (A) 2 %; HCT 24.8 % (39.0-53.0); Hypochromasia Marked; Lymphocytes # (A) 0.4 k/uL (1.0-4.8); Lymphocytes % (A) 8 %; MCH 29.5 pg (25.0-35.0); MCHC 32.3 g/dL (31.0-37.0); MCV 91.1 fL (80.0-100.0); Mean Platelet Volume 9.4; Monocytes # (A) 0.2 k/uL (0-1.0); Monocytes % (A) 4 %; Neutrophils # (A) 5.1 k/uL (1.3-7.7); Neutrophils % (A) 86 %; Platelet Count 127 k/uL (150-450); Poikilocytosis Slight; RBC 2.73 m/uL (4.30-5.90); RDW 17.2 % (11.5-15.5); WBC 5.9 k/uL (3.8-10.6)
[2024-02-15 22:54] LABS: Glucose,Whole Blood 154 mg/dL (70-110)
[2024-02-15 23:54] LABS: Glucose,Whole Blood 160 mg/dL (70-110)
[2024-02-16 00:53] LABS: Glucose,Whole Blood 140 mg/dL (70-110)
[2024-02-16] MEDS: IPRATROPIUM-ALBUTEROL 3 ML NEB INHALATION PRN (00:56)
[2024-02-16 01:56] LABS: Glucose,Whole Blood 76 mg/dL (70-110)
--- NOTE | 2024-02-16 02:36 | P.CNPUL ---
History of Present Illness Consult date: 02/16/24 Requesting physician: Hans Mauricio Reason for consult: other (ICU management, status post cardiac surgery) Chief complaint: Elective CABG and MV repair History of present illness: Patient is a-year-old white male with past medical history significant for prostate cancer, diabetes mellitus, hypertension, angina, atrial fibrillation normally anticoagulated on Eliquis. Of note, patient had a recent hospitalization 12/24/2023 where he did have an extensive cardiac workup. He was found to have multivessel coronary artery disease and severe mitral regurgitation. Cardiac cath done on 12/28/2023 demonstrates 80% mid LAD stenosis, 90% mid OM2 disease, and moderate diffuse disease in the PDA. Cardiothoracic team was asked to evaluate this patient up for potential open heart surgery. Echocardiogram done the same admission showed a left ventricular ejection fraction estimated at 25 to 30%, as well as, moderate to severe mitral valve regurgitation. Patient underwent open heart surgery yesterday 02/15/2024 including coronary artery bypass grafting x 3 with POSADA to LAD, sequential saphe nous vein graft to first and second obtuse marginal coronary arteries, mitral valve repair with 28 mm annular flex band, modified Vazquez-Maze with completed left sided lesion set using RF and cryoablation, ligation of left atrial appendage, and percutaneous placement of intra-aortic balloon pump. Patient was transferred to the intensive care unit postoperatively in critical condition. Or exit time documented at 1430. He did have a 2 L EBL. Status post 4 units PRBC, 2 FFP, 2 platelets, 1.5 L albumin, and 1200 mL Cell Saver. He remains intubated to mechanical ventilator. Postoperative chest x-ray shows mild pulmonary congestion and cardiomegaly, no pneumothorax. Endotracheal tube 2.6 cm above the clark. NG tube courses below the diaphragm. [place]-Julius catheter with tip projecting over the spine, mediastinal and left thoracotomy tubes in place. Postoperative ABG PaO2 204, pCO2 40, pH 7.36. Current ventilator settings including assist-control, respiratory rate 14, tidal volume 500, FiO2 50%, PEEP of 5. Peak pressure 22, no significant airway secretions. Patient is lightly sedated on propofol which is currently infusing at 50 mcg/kg/min. He does awaken to verbal stimuli, follows all commands, moves all 4 extremities equally. Reportedly has not been extubated at this point, due to increased vasopressor requirements. He is on a one-to-one balloon pump with augmented pressure of 87 mean pressure 65. CI 2.4/CO 4.8. Pulmonary artery pressure 47/22. CVP 14. Milrinone infusing at 0.2 mcg/kg/min. Norepinephrine infusing at 0.04 mcg/kg/min. Normal saline also infusing at 50 mL/h. Insulin per protocol. He does have an epicardial pacemaker wires, currently DDI settings at a rate of 80 bpm. Patient does have 2 mediastinal chest tubes hooked to an atrium with 470 mL of serosanguineous output at this point in time. Left pleural chest tube has a total of 180 mL of serosanguineous output. These are both to negative 20 cm H2O suction. No obvious air leak. Urinary catheter is in place, draining adequate urine output in the order of 30 to 40 mL/h. Most recent CBC: WBC count 5.9, hemoglobin 8, hematocrit 24.8, platelets 127. Coagulation profile including PT 13.6, INR 1.3, APTT 28.6, fibrinogen 215. CMP: Sodium 141, potassium 3.9, chloride 111, serum bicarb 23, BUN 33, creatinine 1.56, glucose 149. Ionized calcium 5. AST 194, ALT 95, ALP 56. Plan is to pu rsue extubation later this morning. Review of Systems ROS unobtainable: due to endotracheal tube 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, using [employer] caf[employer]ia monitor History of Any Multi-Drug Resistant Organisms: None Reported Past Surgical History: Appendectomy, Cardiac Ablation, Orthopedic Surgery, Orthopedic Surgery Additional Past Surgical History / Comment(s): Right hip replacement, bilateral cataract Past Anesthesia/Blood Transfusion Reactions: No Reported Reaction Smoking Status: Former smoker - Past Family History Father Family Medical History: Coronary Artery Disease (CAD) Additional Family Medical History / Comment(s): from an aneurysm Mother Family Medical History: Cancer Medications and Allergies Home Medications Medication Instructions Recorded Confirmed Type Timolol 0.5% Ophth Soln [Timoptic 1 drop BOTH EYES BID 12/24/23 02/15/24 History 0.5% Ophth Soln] Atorvastatin [Lipitor] 40 mg PO DAILY #30 tab 01/01/24 02/15/24 Rx Dapagliflozin Propanediol [Farxiga] 10 mg PO DAILY #30 tab 01/01/24 02/15/24 Rx Isosorbide Mononitrate ER [Imdur] 30 mg PO DAILY #30 tab 01/01/24 02/15/24 Rx Amiodarone [Cordarone] 200 mg PO DAILY 01/22/24 02/15/24 History Apixaban [Eliquis] 2.5 mg PO BID 01/24/24 02/15/24 History Folic Acid-Vit B Complex-Vit C 1 cap PO DAILY 01/24/24 02/15/24 History [Nephrocaps] Furosemide [Lasix] 40 mg PO DAILY 02/15/24 02/15/24 History Menthol-Zinc Oxide Oint 1 applic TOPICAL TID 02/15/24 02/15/24 History [Calmoseptine Ointment] Metoprolol Tartrate [Lopressor] 125 mg PO BID 02/15/24 02/15/24 History Pantoprazole [Protonix] 40 mg PO BID 02/15/24 02/15/24 History glipiZIDE XL [Glucotrol XL] 10 mg PO BID 02/15/24 02/15/24 History Allergies Allergy/AdvReac Type Severity Reaction Status Date / Time Penicillins Allergy Unknown Verified 02/15/24 07:14 Childhood Physical Exam Vitals: Vital Signs Temp Pulse Pulse Resp BP BP BP 02/16/24 01:10 81 02/16/24 01:00 80 17 110/77 02/16/24 00:57 80 02/16/24 00:54 02/16/24 00:45 80 14 02/16/24 00:30 80 14 02/16/24 00:15 80 14 02/16/24 00:00 80 14 95/68 02/15/24 23:45 80 14 02/15/24 23:30 80 14 02/15/24 23:15 80 14 85/62 02/15/24 23:00 80 14 77/57 02/15/24 22:45 80 14 77/57 02/15/24 22:30 80 14 89/63 02/15/24 22:15 80 14 89/63 02/15/24 22:00 80 15 100/67 02/15/24 21:45 80 15 02/15/24 21:30 80 15 02/15/24 21:15 84 14 02/15/24 21:01 80 02/15/24 21:00 80 14 100/67 02/15/24 20:58 02/15/24 20:45 80 14 02/15/24 20:30 80 14 02/15/24 20:21 98.8 F 14 96/46 02/15/24 20:15 80 14 02/15/24 20:00 80 14 02/15/24 19:57 02/15/24 19:00 80 14 02/15/24 18:45 97.3 F L 80 14 88/44 02/15/24 18:30 80 14 02/15/24 18:25 97.3 F L 80 14 83/42 02/15/24 18:15 80 14 02/15/24 18:11 97.2 F L 80 14 83/42 02/15/24 18:00 80 14 02/15/24 17:51 02/15/24 17:45 80 14 02/15/24 17:30 80 14 02/15/24 17:15 80 14 02/15/24 17:00 80 14 02/15/24 16:45 80 14 02/15/24 16:30 80 14 02/15/24 16:15 80 14 02/15/24 16:00 97.3 F L 80 14 02/15/24 15:45 80 14 02/15/24 15:30 80 14 02/15/24 15:17 02/15/24 15:15 80 14 02/15/24 15:00 80 14 02/15/24 14:45 97.3 F L 80 14 02/15/24 14:36 02/15/24 14:23 02/15/24 10:22 97.0 F L 80 14 80/38 02/15/24 06:57 97.9 F 104 H 16 112/80 113/74 Pulse Ox FiO2 02/16/24 01:10 02/16/24 01:00 100 02/16/24 00:57 02/16/24 00:54 50 02/16/24 00:45 98 02/16/24 00:30 99 02/16/24 00:15 98 02/16/24 00:00 98 50 02/15/24 23:45 99 02/15/24 23:30 98 02/15/24 23:15 98 02/15/24 23:00 98 02/15/24 22:45 98 02/15/24 22:30 98 02/15/24 22:15 98 02/15/24 22:00 99 02/15/24 21:45 99 02/15/24 21:30 99 02/15/24 21:15 100 02/15/24 21:01 02/15/24 21:00 100 02/15/24 20:58 50 02/15/24 20:45 100 02/15/24 20:30 100 02/15/24 20:21 100 02/15/24 20:15 100 02/15/24 20:00 100 02/15/24 19:57 50 02/15/24 19:00 100 02/15/24 18:45 100 02/15/24 18:30 100 02/15/24 18:25 02/15/24 18:15 100 02/15/24 18:11 02/15/24 18:00 100 02/15/24 17:51 50 02/15/24 17:45 100 02/15/24 17:30 100 02/15/24 17:15 100 02/15/24 17:00 100 02/15/24 16:45 100 02/15/24 16:30 100 02/15/24 16:15 100 02/15/24 16:00 100 60 02/15/24 15:45 100 02/15/24 15:30 100 02/15/24 15:17 60 02/15/24 15:15 100 02/15/24 15:00 100 02/15/24 14:45 100 02/15/24 14:36 100 02/15/24 14:23 100 02/15/24 10:22 100 02/15/24 06:57 99 Intake and Output 02/15/24 02/15/24 02/16/24 14:59 22:59 06:59 Intake Total 2005 5360.287 841.488 Output Total 0 1190 220 Balance -544 1530.287 621.488 Intake: IV 52 9854 747 ACETAMINOPHEN IV (For NPO 100 ) 1,000 mg In Empty Bag 1 bag @ 400 mls/hr IVPB Q6H JAYLEN Rx#:[id number] Albumin Human 5% 250 ml 1000 500 In Empty Bag 1 bag @ 250 mls/hr IVPB Q1HR PRN Rx#: [id number] CO/CI 110 70 Calcium Gluconate in NaCl 100 2 gm In Saline 1 100ml. bag @ 100 mls/hr IVPB ONCE PRN Rx#:[id number] Pressure Bags 54 27 Sodium Chloride 0.9% 1, 300 150 000 ml @ 50 mls/hr IV . Q20H JAYLEN Rx#:[id number] Intake, IV Titration 746.287 94.488 Amount Albumin Human 5% 250 ml 500 In Empty Bag 1 bag @ 250 mls/hr IVPB Q1HR PRN Rx#: [id number] Insulin Regular 100 unit 14.948 5.993 In Sodium Chloride 0.9% 100 ml @ Per Protocol IV .Q0M JAYLEN Rx#:[id number] Milrinone-D5w Pmx 20 mg 10.2 In Dextrose/Water 1 100ml .bag @ 0.2 MCG/KG/MIN 5. 106 mls/hr IV .[id number] JAYLEN Rx#:[id number] Norepinephrine 4 mg In 5.999 83.219 Sodium Chloride 0.9% 250 ml @ 0.02 MCG/KG/MIN 6. 485 mls/hr IV .Q24H JAYLEN Rx#:[id number] Sodium Chloride 0.9% 1, 100 000 ml @ 50 mls/hr IV . Q20H JAYLEN Rx#:[id number] propofoL 1,000 mg In 115.140 5.276 Empty Bag 1 bag @ Titrate IV .Q0M JAYLEN Rx#: [id number] Blood Product 195 310 Ffp 24 Pher Acda Cnt2 225 Unit [id number] Ffp 24 Pher Acda Cnt2 217 Unit [id number] Platelet Pheresis Pas 257 Psoralen Unit [id number] Platelet Pheresis Pas 325 Psoralen Unit [id number] Rc As-1 Unit 310 [id number] Rc As-1 Unit 310 [id number] Rc As-1 Unit 310 [id number] Rc As-1 Unit 310 [id number] Output: Chest Tube Drainage 75 610 130 Lt pleural 5 170 50 Mediastinal 70 440 80 Urine 475 580 90 Estimated Blood Loss 1999 Other: Voiding Method Indwelling Catheter Indwelling Catheter ABP, PAP, CO, CI - Last 8 Hours Arterial Blood Pressure 136/68 Arterial Blood Pressure 93/46 Arterial Blood Pressure 106/52 Arterial Blood Pressure 82/45 Arterial Blood Pressure 83/45 Arterial Blood Pressure 93/52 Arterial Blood Pressure 83/50 Arterial Blood Pressure 77/44 Arterial Blood Pressure 76/47 Arterial Blood Pressure 80/46 Arterial Blood Pressure 75/47 Arterial Blood Pressure 75/42 Arterial Blood Pressure 79/42 Arterial Blood Pressure 82/43 Arterial Blood Pressure 90/45 Arterial Blood Pressure 62/34 Arterial Blood Pressure 82/44 Arterial Blood Pressure 91/47 Arterial Blood Pressure 85/45 Arterial Blood Pressure 92/41 Arterial Blood Pressure 85/44 Arterial Blood Pressure 83/42 Arterial Blood Pressure 78/37 Arterial Blood Pressure 75/41 Pulmonary Artery Pressure 55/30 Pulmonary Artery Pressure 43/20 Pulmonary Artery Pressure 48/22 Pulmonary Artery Pressure 47/22 Pulmonary Artery Pressure 48/22 Pulmonary Artery Pressure 48/23 Pulmonary Artery Pressure 48/22 Pulmonary Artery Pressure 46/22 Pulmonary Artery Pressure 47/21 Pulmonary Artery Pressure 47/22 Pulmonary Artery Pressure 48/22 Pulmonary Artery Pressure 47/22 Pulmonary Artery Pressure 46/22 Pulmonary Artery Pressure 44/23 Pulmonary Artery Pressure 48/22 Pulmonary Artery Pressure 48/23 Pulmonary Artery Pressure 50/25 Pulmonary Artery Pressure 49/23 Pulmonary Artery Pressure 52/23 Pulmonary Artery Pressure 50/24 Pulmonary Artery Pressure 49/24 Pulmonary Artery Pressure 46/24 Pulmonary Artery Pressure 45/23 Pulmonary Artery Pressure 46/23 Pulmonary Artery Pressure 44/20 Pulmonary Artery Pressure 44/21 Cardiac Output 5.6 Cardiac Output 5.8 Cardiac Output 4.8 Cardiac Output 5.1 Cardiac Output 4.7 Cardiac Output 4.2 Cardiac Index 2.8 Cardiac Index 2.9 Cardiac Index 2.4 Cardiac Index 2.6 Cardiac Index 2.4 Cardiac Index 2.1 GENERAL EXAM: Lethargic, lightly sedated, intubated mechanical ventilator, follows commands and moves all 4 extremities. HEAD: Normocephalic and atraumatic EYES: Normal reaction of pupils, equal size. NOSE: Clear with pink turbinates. THROAT: No erythema or exudates. NECK: No masses, no JVD. Right IJ introducer sheath with pulmonary artery catheter CHEST: Midstern incision approximated and dressed with postoperative dressing clean, dry, intact. Epicardial pacemaker noted. Mediastinal chest tubes and left pleural chest tube attached to 2 separate atriums and -20 cm H2O suction. No significant air leak. LUNGS: Equal air entry with no crackles, wheeze, rhonchi or dullness. Remains intubated to mechanical ventilator. No significant airway secretions. Peak pressures 22. CVS: S1 and S2 normal with no audible murmur, regular rhythm. Pericardial friction rub and IABP artifact. ABDOMEN: No hepatosplenomegaly, active bowel sounds, no guarding or rigidity. SPINE: No scoliosis or deformity SKIN: No rashes CENTRAL NERVOUS SYSTEM: No focal deficits, tone is normal in all 4 extremities. EXTREMITIES: Right femoral IV access site without hematoma. Distal pulses intact. Legs wrapped with Clive bandages. Results - Laboratory Findings CBC and BMP: 02/15/24 21:44 02/15/24 14:46 ABG ABG pH 7.36 (7.35-7.45) 02/15/24 15:13 ABG pCO2 40 mmHg (35-45) 02/15/24 15:13 ABG pO2 204 mmHg (83-108) H 02/15/24 15:13 ABG O2 Saturation 100.5 % (94-97) H 02/15/24 15:13 PT/INR, D-dimer PT 13.6 sec (10.0-12.5) H 02/15/24 14:46 INR 1.3 (<1.2) H 02/15/24 14:46 Abnormal lab findings: Abnormal Labs 02/12/24 02/15/24 02/15/24 12:05 06:33 07:46 RBC Hgb Hct RDW Plt Count Lymphocytes # PT INR ABG pH ABG pCO2 ABG pO2 ABG HCO3 ABG O2 Saturation ABG Hematocrit ABG Potassium ABG Ionized Calcium ABG Glucose Hemoglobin Chloride BUN Creatinine Glucose POC Glucose (mg/dL) 198 H 187 H Magnesium Total Bilirubin AST ALT Total Protein Albumin Arterial Blood Potassium Arterial Blood Glucose Crossmatch See Detail 02/15/24 02/15/24 02/15/24 08:04 08:48 10:10 RBC Hgb Hct RDW Plt Count Lymphocytes # PT INR ABG pH ABG pCO2 ABG pO2 229 H 297 H ABG HCO3 ABG O2 Saturation 99.4 H >99.4 H ABG Hematocrit 28 L 29 L ABG Potassium 3.1 L 3.3 L ABG Ionized Calcium ABG Glucose Hemoglobin 9.1 L 9.6 L Chloride BUN Creatinine Glucose POC Glucose (mg/dL) 157 H Magnesium Total Bilirubin AST ALT Total Protein Albumin Arterial Blood Potassium 3.1 L 3.3 L Arterial Blood Glucose Crossmatch 02/15/24 02/15/24 02/15/24 10:40 11:11 12:04 RBC Hgb Hct RDW Plt Count Lymphocytes # PT INR ABG pH 7.51 H 7.46 H ABG pCO2 33 L ABG pO2 >420 H >420 H 229 H ABG HCO3 26 H ABG O2 Saturation >99.4 H >99.4 H 99.4 H ABG Hematocrit 27 L 26 L 25 L ABG Potassium 3.3 L ABG Ionized Calcium 3.8 L 4.2 L 4.2 L ABG Glucose 121 H 102 H 120 H Hemoglobin 8.7 L 8.3 L 8.3 L Chloride BUN Creatinine Glucose POC Glucose (mg/dL) Magnesium Total Bilirubin AST ALT Total Protein Albumin Arterial Blood Potassium 3.3 L Arterial Blood Glucose 121 H 102 H 120 H Crossmatch 02/15/24 02/15/24 02/15/24 12:16 12:37 13:20 RBC Hgb Hct RDW Plt Count Lymphocytes # PT INR ABG pH 7.23 L 7.32 L ABG pCO2 60 H 34 L ABG pO2 >420 H >420 H 327 H ABG HCO3 ABG O2 Saturation 99.4 H 99.4 H >99.4 H ABG Hematocrit 25 L 26 L 23 L ABG Potassium ABG Ionized Calcium 4.2 L 4.1 L ABG Glucose 126 H 150 H 140 H Hemoglobin 8.2 L 8.5 L 7.4 L Chloride BUN Creatinine Glucose POC Glucose (mg/dL) Magnesium Total Bilirubin AST ALT Total Protein Albumin Arterial Blood Potassium Arterial Blood Glucose 126 H 150 H 140 H Crossmatch 02/15/24 02/15/24 02/15/24 14:02 14:45 14:46 RBC 3.25 L Hgb 9.7 L Hct 29.1 L RDW 17.5 H Plt Count Lymphocytes # 0.8 L PT INR ABG pH 7.32 L ABG pCO2 ABG pO2 >420 H ABG HCO3 20 L ABG O2 Saturation 99.4 H ABG Hematocrit 27 L ABG Potassium ABG Ionized Calcium 3.9 L ABG Glucose 154 H Hemoglobin 8.8 L Chloride BUN Creatinine Glucose POC Glucose (mg/dL) 173 H Magnesium Total Bilirubin AST ALT Total Protein Albumin Arterial Blood Potassium Arterial Blood Glucose 154 H Crossmatch 02/15/24 02/15/24 02/15/24 14:46 14:46 15:13 RBC Hgb Hct RDW Plt Count Lymphocytes # PT 13.6 H INR 1.3 H ABG pH ABG pCO2 ABG pO2 204 H ABG HCO3 ABG O2 Saturation 100.5 H ABG Hematocrit ABG Potassium ABG Ionized Calcium ABG Glucose Hemoglobin Chloride 111 H BUN 33 H Creatinine 1.56 H Glucose 149 H POC Glucose (mg/dL) Magnesium 4.0 H Total Bilirubin 2.2 H AST 194 H ALT 95 H Total Protein 4.5 L Albumin 2.8 L Arterial Blood Potassium Arterial Blood Glucose Crossmatch 02/15/24 02/15/24 02/15/24 15:44 16:32 17:15 RBC 2.42 L Hgb 7.1 L D Hct 21.7 L RDW 17.6 H Plt Count 127 L Lymphocytes # 0.6 L PT INR ABG pH ABG pCO2 ABG pO2 ABG HCO3 ABG O2 Saturation ABG Hematocrit ABG Potassium ABG Ionized Calcium ABG Glucose Hemoglobin Chloride BUN Creatinine Glucose POC Glucose (mg/dL) 170 H 160 H Magnesium Total Bilirubin AST ALT Total Protein Albumin Arterial Blood Potassium Arterial Blood Glucose Crossmatch 02/15/24 02/15/24 02/15/24 17:20 18:49 19:41 RBC Hgb Hct RDW Plt Count Lymphocytes # PT INR ABG pH ABG pCO2 ABG pO2 ABG HCO3 ABG O2 Saturation ABG Hematocrit ABG Potassium ABG Ionized Calcium ABG Glucose Hemoglobin Chloride BUN Creatinine Glucose POC Glucose (mg/dL) 152 H 131 H 112 H Magnesium Total Bilirubin AST ALT Total Protein Albumin Arterial Blood Potassium Arterial Blood Glucose Crossmatch 02/15/24 02/15/24 02/15/24 20:30 20:59 21:44 RBC 2.80 L 2.73 L Hgb 8.5 L 8.0 L Hct 25.6 L 24.8 L RDW 17.5 H 17.2 H Plt Count 113 L 127 L Lymphocytes # 0.6 L 0.4 L PT INR ABG pH ABG pCO2 ABG pO2 ABG HCO3 ABG O2 Saturation ABG Hematocrit ABG Potassium ABG Ionized Calcium ABG Glucose Hemoglobin Chloride BUN Creatinine Glucose POC Glucose (mg/dL) 137 H Magnesium Total Bilirubin AST ALT Total Protein Albumin Arterial Blood Potassium Arterial Blood Glucose Crossmatch 02/15/24 02/15/24 02/15/24 21:55 22:52 23:53 RBC Hgb Hct RDW Plt Count Lymphocytes # PT INR ABG pH ABG pCO2 ABG pO2 ABG HCO3 ABG O2 Saturation ABG Hematocrit ABG Potassium ABG Ionized Calcium ABG Glucose Hemoglobin Chloride BUN Creatinine Glucose POC Glucose (mg/dL) 154 H 154 H 160 H Magnesium Total Bilirubin AST ALT Total Protein Albumin Arterial Blood Potassium Arterial Blood Glucose Crossmatch 02/16/24 00:52 RBC Hgb Hct RDW Plt Count Lymphocytes # PT INR ABG pH ABG pCO2 ABG pO2 ABG HCO3 ABG O2 Saturation ABG Hematocrit ABG Potassium ABG Ionized Calcium ABG Glucose Hemoglobin Chloride BUN Creatinine Glucose POC Glucose (mg/dL) 140 H Magnesium Total Bilirubin AST ALT Total Protein Albumin Arterial Blood Potassium Arterial Blood Glucose Crossmatch - Diagnostic Findings Chest x-ray: image reviewed Assessment and Plan Assessment: Postoperative day #1 following coronary artery bypass grafting x 3 with POSADA to LAD, sequential saphenous vein graft to first and second obtuse marginal coronary arteries, mitral valve repair with 28 mm annular flex band, modified Vazquez-Maze with completed left sided lesion set using RF and cryoablation, ligation of left atrial appendage, and percutaneous placement of intra-aortic balloon pump. Patient was transferred to the intensive care unit postoperatively in critical condition. Routine mechanical ventilator management, Postoperative chest x-ray shows mild pulmonary congestion and cardiomegaly, no pneumothorax. Endotracheal tube 2.6 cm above the clark. NG tube courses below the diaphragm. [place]-Julius catheter with tip projecting over the spine, mediastinal and left thoracotomy tubes in place. Multivessel coronary artery disease History of severe mitral valve regurgitation Acute blood loss anemia, expected outcome of surgery, Status post 4 units PRBC, 2 FFP, 2 platelets, 1.5 L albumin, and 1200 mL Cell Saver. Acute kidney injury, secondary to hypotension and ATN Diabetes mellitus type 2 History of atrial fibrillation, normally anticoagulated on Eliquis, status post synchronized cardioversion on 12/31/2023 History of hypertension Former tobacco smoker History of prostate cancer with previous radiation Plan: Patient is recovering in the intensive care unit We will continue to work on weaning this patient from mechanical ventilator, as long as the patient remains hemodynamically stable this morning. Wean propofol, may use Precedex for weaning purposes and agitation. Obtain weaning parameters. Obtain repeat ABG this a.m. Obtain repeat CXR this a.m. Currently on vasopressors in the form of norepinephrine and milrinone. 1:1 IABP Monitor chest tube output Continues on insulin infusion for tight blood glucose control Protonix for GI prophylaxis Subcu heparin for DVT prophylaxis We will continue to follow, and further recommendations are forthcoming I have personally seen and examined the patient, performed the documentation and the assessment and plan as written. Number of minutes spent on the visit:20 Time with Patient: Greater than 30
[2024-02-16 02:58] LABS: Glucose,Whole Blood 131 mg/dL (70-110)
[2024-02-16 03:59] LABS: Glucose,Whole Blood 136 mg/dL (70-110)
[2024-02-16 05:03] LABS: Glucose,Whole Blood 133 mg/dL (70-110)
[2024-02-16 05:14] LABS: ABG Base Excess -6.2 mmol/L; ABG HCO3 19 mmol/L (21-25); ABG Oxygen Saturation 98.9 % (94-97); ABG PCO2 37 mmHg (35-45); ABG PH 7.33 (7.35-7.45); ABG PO2 103 mmHg (83-108); ABG TCO2 20 mmol/L (19-24); Allen Test Performed? Yes
[2024-02-16 05:23] LABS: Anisocytosis Slight; Basophils % (A) 0 %; Eosinophils % (A) 1 %; HCT 23.2 % (39.0-53.0); HGB 7.5 gm/dL (13.0-17.5); Hypochromasia Marked; Lymphocytes # (A) 0.6 k/uL (1.0-4.8); Lymphocytes % (A) 9 %; MCH 29.4 pg (25.0-35.0); MCHC 32.2 g/dL (31.0-37.0); MCV 91.4 fL (80.0-100.0); Mean Platelet Volume 9.4; Monocytes # (A) 0.3 k/uL (0-1.0); Monocytes % (A) 5 %; Neutrophils % (A) 84 %; Platelet Count 116 k/uL (150-450); Poikilocytosis Slight; RBC 2.54 m/uL (4.30-5.90); RDW 17.2 % (11.5-15.5); WBC 5.9 k/uL (3.8-10.6)
[2024-02-16 05:35] LABS: Ionized Calcium 4.8 mg/dL (4.5-5.3)
[2024-02-16 05:47] LABS: ALT 67 U/L (4-49); AST 157 U/L (17-59); African American GFR (CKD) 39 (>60 ml/min/1.73 sqM); Albumin 3.3 g/dL (3.5-5.0); Alkaline Phosphatase 43 U/L (38-126); Anion Gap 11 mmol/L; Blood Urea Nitrogen 30 mg/dL (9-20); Calcium 8.5 mg/dL (8.4-10.2); Carbon Dioxide 18 mmol/L (22-30); Chloride 112 mmol/L (98-107); Glucose 117 mg/dL (74-99); Magnesium 3.1 mg/dL (1.6-2.3); Non-African American GFR(CKD) 34 (>60 ml/min/1.73 sqM); Potassium 3.5 mmol/L (3.5-5.1); Sodium 141 mmol/L (137-145); Total Bilirubin 1.3 mg/dL (0.2-1.3); Total Protein 4.7 g/dL (6.3-8.2)
[2024-02-16 05:55] LABS: Glucose,Whole Blood 126 mg/dL (70-110)
[2024-02-16] MEDS: POTASSIUM BICARBONATE/CIT AC 20 MEQ TABLET.EFF NG-TUBE SCH (06:10)
[2024-02-16 06:54] LABS: Glucose,Whole Blood 123 mg/dL (70-110)
[2024-02-16 07:59] LABS: Glucose,Whole Blood 121 mg/dL (70-110)
[2024-02-16] MEDS: FOLIC ACID-VIT B COMPLEX-VIT C 1 CAP PO SCH (08:00)
[2024-02-16] MEDS: CLOPIDOGREL 75 MG TAB PO SCH (08:00)
[2024-02-16] MEDS: PANTOPRAZOLE 40 MG/10 ML VIAL IVP SCH (08:00)
[2024-02-16] MEDS: ASPIRIN 325 MG TAB PO SCH (08:00)
[2024-02-16] MEDS: METOPROLOL TARTRATE 12.5 MG TAB PO SCH (08:01)
--- NOTE | 2024-02-16 08:23 | XR ---
EXAMINATION TYPE: XR chest 1V portable DATE OF EXAM: 02/16/2024 5:35 AM CLINICAL INDICATION: Male, 78 years old with history of Post Operative Cardiac Surgery; COMPARISON: Chest radiographs from TECHNIQUE: XR chest 1V portable Frontal view of the chest. FINDINGS: Lungs/Pleura: There is no evidence of pleural effusion, focal consolidation, or pneumothorax. Pulmonary vascularity: Unremarkable. Heart/mediastinum: Cardiomediastinal silhouette is enlarged. Musculoskeletal: No acute osseous pathology. Other findings: None Lines/Tubes: Endotracheal tube with distal tip 3.6 cm above the clark. Nasogastric tube with its distal tip and side-port projecting under the diaphragm. Left thoracotomy tube is present without evidence of pneumothorax. There is a [place]-Julius catheter sheath in place. Left thoracotomy tube is present without evidence of pneumothorax. IMPRESSION: Surgical changes with mild pulmonary edema. No significant change from prior..
[2024-02-16] MEDS ORDERED: MAGNESIUM HYDROXIDE 2,400 MG/30 ML CUP PO PRN (09:00)
[2024-02-16 09:01] LABS: Glucose,Whole Blood 120 mg/dL (70-110)
[2024-02-16 09:58] LABS: Glucose,Whole Blood 119 mg/dL (70-110)
[2024-02-16 10:40] LABS: ABG Base Excess -4.1 mmol/L; ABG HCO3 21 mmol/L (21-25); ABG Oxygen Saturation 98.5 % (94-97); ABG PCO2 37 mmHg (35-45); ABG PH 7.36 (7.35-7.45); ABG PO2 93 mmHg (83-108); ABG TCO2 22 mmol/L (19-24); Allen Test Performed? Yes
--- NOTE | 2024-02-16 10:44 | P.NPCON ---
History of Present Illness - Reason for Consult chronic renal failure - History of Present Illness For consultation: Chronic kidney disease History of present illness: Patient is 78-year-old male seen in renal consultation for chronic kidney disease. Patient has chronic kidney disease stage IIIb with baseline creatinine in the range of 1.5-2. GFR is near baseline. Patient was recently admitted due to anemia and had extensive workup including EGD, colonoscopy and a small bowel capsule study. Patient was noted to have congestive heart failure with mitral regurgitation and underwent CABG x 3 as well as mitral valve repair February 15, 2024. Currently on normal saline at 50 cc an hour. Intubated. He is on Primacor drip. Hemodynamically stable. On 40% FiO2. Patient has longstanding history of diabetes. Diuretics are currently held. Vital signs are stable. General: Resting in bed. HEENT: Head exam is unremarkable. Intubated. LUNGS: Scattered rhonchi. Chest tubes noted. HEART: Rate and Rhythm are regular. ABDOMEN: No distention. EXTREMITITES: No edema. 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 History of Any Multi-Drug Resistant Organisms: None Reported Past Surgical History: Appendectomy, Cardiac Ablation, Orthopedic Surgery, Orthopedic Surgery Additional Past Surgical History / Comment(s): Right hip replacement, bilateral cataract Past Anesthesia/Blood Transfusion Reactions: No Reported Reaction Smoking Status: Former smoker - Past Family History Father Family Medical History: Coronary Artery Disease (CAD) Additional Family Medical History / Comment(s): from an aneurysm Mother Family Medical History: Cancer Medications and Allergies Home Medications Medication Instructions Recorded Confirmed Type Timolol 0.5% Ophth Soln [Timoptic 1 drop BOTH EYES BID 12/24/23 02/15/24 History 0.5% Ophth Soln] Atorvastatin [Lipitor] 40 mg PO DAILY #30 tab 01/01/24 02/15/24 Rx Dapagliflozin Propanediol [Farxiga] 10 mg PO DAILY #30 tab 01/01/24 02/15/24 Rx Isosorbide Mononitrate ER [Imdur] 30 mg PO DAILY #30 tab 01/01/24 02/15/24 Rx Amiodarone [Cordarone] 200 mg PO DAILY 01/22/24 02/15/24 History Apixaban [Eliquis] 2.5 mg PO BID 01/24/24 02/15/24 History Folic Acid-Vit B Complex-Vit C 1 cap PO DAILY 01/24/24 02/15/24 History [Nephrocaps] Furosemide [Lasix] 40 mg PO DAILY 02/15/24 02/15/24 History Menthol-Zinc Oxide Oint 1 applic TOPICAL TID 02/15/24 02/15/24 History [Calmoseptine Ointment] Metoprolol Tartrate [Lopressor] 125 mg PO BID 02/15/24 02/15/24 History Pantoprazole [Protonix] 40 mg PO BID 02/15/24 02/15/24 History glipiZIDE XL [Glucotrol XL] 10 mg PO BID 02/15/24 02/15/24 History Allergies Allergy/AdvReac Type Severity Reaction Status Date / Time Penicillins Allergy Unknown Verified 02/15/24 07:14 Childhood Physical Exam Vitals: Vital Signs Temp Pulse Resp BP Pulse Ox FiO2 02/16/24 10:06 40 02/16/24 10:00 80 16 99 02/16/24 09:45 80 15 99 02/16/24 09:30 80 14 100 02/16/24 09:15 80 14 100 02/16/24 09:00 80 14 100 02/16/24 08:45 80 14 100 02/16/24 08:31 83 02/16/24 08:30 80 14 100 02/16/24 08:27 40 02/16/24 08:15 80 14 100 02/16/24 08:00 80 14 100 40 02/16/24 07:45 80 14 99 02/16/24 07:30 80 14 100 02/16/24 07:15 80 15 100 02/16/24 07:00 80 14 100 02/16/24 06:45 80 14 100 02/16/24 06:30 80 15 100 02/16/24 06:15 80 15 100 02/16/24 06:00 80 17 98 02/16/24 05:45 80 17 99 02/16/24 05:30 80 15 98 02/16/24 05:15 80 15 99 02/16/24 05:00 80 14 100/67 99 02/16/24 04:45 80 14 98 02/16/24 04:30 80 14 99 02/16/24 04:24 40 02/16/24 04:15 80 14 98 02/16/24 04:05 40 02/16/24 04:00 80 14 105/61 100 40 02/16/24 03:55 83 02/16/24 03:45 80 14 100 02/16/24 03:43 80 02/16/24 03:33 50 02/16/24 03:30 80 14 99 02/16/24 03:15 80 14 99 02/16/24 03:00 80 14 99/64 100 02/16/24 02:45 80 14 100 02/16/24 02:30 80 14 100 02/16/24 02:15 80 14 100 02/16/24 02:00 80 14 107/82 99 02/16/24 01:45 80 14 99 02/16/24 01:30 80 14 99 02/16/24 01:15 80 14 100 02/16/24 01:10 81 02/16/24 01:00 80 17 110/77 100 02/16/24 00:57 80 02/16/24 00:54 50 02/16/24 00:45 80 14 98 02/16/24 00:30 80 14 99 02/16/24 00:15 80 14 98 02/16/24 00:00 80 14 95/68 98 50 02/15/24 23:45 80 14 99 02/15/24 23:30 80 14 98 02/15/24 23:15 80 14 85/62 98 02/15/24 23:00 80 14 77/57 98 02/15/24 22:45 80 14 77/57 98 02/15/24 22:30 80 14 89/63 98 02/15/24 22:15 80 14 89/63 98 02/15/24 22:00 80 15 100/67 99 02/15/24 21:45 80 15 99 02/15/24 21:30 80 15 99 02/15/24 21:15 84 14 100 02/15/24 21:01 80 02/15/24 21:00 80 14 100/67 100 02/15/24 20:58 50 02/15/24 20:45 80 14 100 02/15/24 20:30 80 14 100 02/15/24 20:21 98.8 F 14 96/46 100 02/15/24 20:15 80 14 100 02/15/24 20:00 80 14 100 02/15/24 19:57 50 02/15/24 19:00 80 14 100 02/15/24 18:45 97.3 F L 80 14 88/44 100 02/15/24 18:30 80 14 100 02/15/24 18:25 97.3 F L 80 14 83/42 02/15/24 18:15 80 14 100 02/15/24 18:11 97.2 F L 80 14 83/42 02/15/24 18:00 80 14 100 02/15/24 17:51 50 02/15/24 17:45 80 14 100 02/15/24 17:30 80 14 100 02/15/24 17:15 80 14 100 02/15/24 17:00 80 14 100 02/15/24 16:45 80 14 100 02/15/24 16:30 80 14 100 02/15/24 16:15 80 14 100 02/15/24 16:00 97.3 F L 80 14 100 60 02/15/24 15:45 80 14 100 02/15/24 15:30 80 14 100 02/15/24 15:17 60 02/15/24 15:15 80 14 100 02/15/24 15:00 80 14 100 02/15/24 14:45 97.3 F L 80 14 100 02/15/24 14:36 100 02/15/24 14:23 100 Intake and Output 02/15/24 02/16/24 02/16/24 22:59 06:59 14:59 Intake Total 2720.287 1306.328 422.966 Output Total 1190 625 360 Balance 1530.287 681.328 62.966 Intake: IV 1664 1152 386 ACETAMINOPHEN IV (For NPO 100 ) 1,000 mg In Empty Bag 1 bag @ 400 mls/hr IVPB Q6H JAYLEN Rx#:[id number] Albumin Human 5% 250 ml 1000 500 In Empty Bag 1 bag @ 250 mls/hr IVPB Q1HR PRN Rx#: [id number] CO/CI 110 180 100 Calcium Gluconate in NaCl 100 2 gm In Saline 1 100ml. bag @ 100 mls/hr IVPB ONCE PRN Rx#:[id number] Pressure Bags 54 72 36 Sodium Chloride 0.9% 1, 300 400 200 000 ml @ 50 mls/hr IV . Q20H JAYLEN Rx#:[id number] ceFAZolin 2 gm In Sodium 50 Chloride 0.9% 50 ml @ 100 mls/hr IVPB Q8HR JAYLEN Rx# :[id number] Intake, IV Titration 746.287 154.328 36.966 Amount Albumin Human 5% 250 ml 500 In Empty Bag 1 bag @ 250 mls/hr IVPB Q1HR PRN Rx#: [id number] Insulin Regular 100 unit 14.948 9.377 8.585 In Sodium Chloride 0.9% 100 ml @ Per Protocol IV .Q0M JAYLEN Rx#:[id number] Milrinone-D5w Pmx 20 mg 10.2 In Dextrose/Water 1 100ml .bag @ 0.2 MCG/KG/MIN 5. 106 mls/hr IV .[id number] JAYLEN Rx#:[id number] Norepinephrine 4 mg In 5.999 110.401 Sodium Chloride 0.9% 250 ml @ 0.02 MCG/KG/MIN 6. 485 mls/hr IV .Q24H JAYLEN Rx#:[id number] Sodium Chloride 0.9% 1, 100 000 ml @ 50 mls/hr IV . Q20H JAYLEN Rx#:[id number] propofoL 1,000 mg In 115.140 34.550 28.381 Empty Bag 1 bag @ Titrate IV .Q0M JAYLEN Rx#: [id number] Blood Product 310 Rc As-1 Unit 310 [id number] Output: Chest Tube Drainage 610 370 220 Lt pleural 170 160 130 Mediastinal 440 210 90 Urine 580 255 140 Other: Voiding Method Indwelling Catheter Indwelling Catheter Indwelling Catheter Weight 95 kg ABP, PAP, CO, CI - Last 8 Hours Arterial Blood Pressure 117/55 Arterial Blood Pressure 114/55 Arterial Blood Pressure 102/50 Arterial Blood Pressure 108/53 Arterial Blood Pressure 116/57 Arterial Blood Pressure 117/47 Arterial Blood Pressure 97/47 Arterial Blood Pressure 103/44 Arterial Blood Pressure 101/48 Arterial Blood Pressure 114/47 Arterial Blood Pressure 118/48 Arterial Blood Pressure 111/50 Arterial Blood Pressure 130/56 Arterial Blood Pressure 139/50 Arterial Blood Pressure 110/51 Arterial Blood Pressure 117/55 Arterial Blood Pressure 114/51 Arterial Blood Pressure 128/54 Arterial Blood Pressure 126/59 Arterial Blood Pressure 104/51 Arterial Blood Pressure 101/48 Arterial Blood Pressure 94/46 Arterial Blood Pressure 100/48 Arterial Blood Pressure 94/45 Arterial Blood Pressure 104/50 Arterial Blood Pressure 131/53 Arterial Blood Pressure 90/51 Arterial Blood Pressure 82/48 Arterial Blood Pressure 92/45 Arterial Blood Pressure 81/46 Pulmonary Artery Pressure 51/25 Pulmonary Artery Pressure 51/25 Pulmonary Artery Pressure 50/25 Pulmonary Artery Pressure 47/24 Pulmonary Artery Pressure 50/27 Pulmonary Artery Pressure 47/25 Pulmonary Artery Pressure 42/21 Pulmonary Artery Pressure 43/21 Pulmonary Artery Pressure 43/22 Pulmonary Artery Pressure 45/21 Pulmonary Artery Pressure 44/21 Pulmonary Artery Pressure 50/25 Pulmonary Artery Pressure 50/25 Pulmonary Artery Pressure 44/21 Pulmonary Artery Pressure 46/22 Pulmonary Artery Pressure 46/24 Pulmonary Artery Pressure 48/23 Pulmonary Artery Pressure 50/27 Pulmonary Artery Pressure 44/22 Pulmonary Artery Pressure 42/20 Pulmonary Artery Pressure 43/21 Pulmonary Artery Pressure 45/21 Pulmonary Artery Pressure 45/21 Pulmonary Artery Pressure 44/21 Pulmonary Artery Pressure 51/25 Pulmonary Artery Pressure 47/21 Pulmonary Artery Pressure 48/22 Pulmonary Artery Pressure 44/20 Cardiac Output 5.2 Cardiac Output 5.1 Cardiac Output 4.6 Cardiac Output 4.9 Cardiac Output 4.8 Cardiac Output 4.9 Cardiac Output 5 Cardiac Output 5.8 Cardiac Output 6 Cardiac Index 2.6 Cardiac Index 2.6 Cardiac Index 2.3 Cardiac Index 2.5 Cardiac Index 2.4 Cardiac Index 2.5 Cardiac Index 2.5 Cardiac Index 2.9 Cardiac Index 3 Results - Lab Results Most recent lab results ABG pH 7.33 (7.35-7.45) L 02/16/24 05:11 ABG pCO2 37 mmHg (35-45) 02/16/24 05:11 ABG pO2 103 mmHg (83-108) 02/16/24 05:11 ABG HCO3 19 mmol/L (21-25) L 02/16/24 05:11 ABG O2 Saturation 98.9 % (94-97) H 02/16/24 05:11 Calcium 8.5 mg/dL (8.4-10.2) 02/16/24 05:00 Magnesium 3.1 mg/dL (1.6-2.3) H 02/16/24 05:00 02/16/24 05:00 02/16/24 05:00 Assessment and Plan Plan: Assessment: 1. Chronic kidney disease stage IIIb secondary to diabetic kidney disease with baseline creatinine 1.5-2. 2. Coronary artery disease status post CABG x 3 and mitral valve repair February 15, 2024. 3. Diabetes mellitus. 4. Anemia of chronic kidney disease with component of acute blood loss post CABG. 5. Metabolic acidosis secondary to chronic kidney disease and IV fluids. 6. Chronic systolic CHF. Plan: Maintain gentle IV hydration. Add Aranesp. Wean FiO2. Potassium replaced. Continue to monitor renal function and urine output. Thank you for the consultation. I will continue to follow the patient with you during his hospital stay.
[2024-02-16 11:09] LABS: Glucose,Whole Blood 114 mg/dL (70-110)
[2024-02-16 12:01] LABS: Glucose,Whole Blood 128 mg/dL (70-110)
--- NOTE | 2024-02-16 12:36 | P.CRDCN ---
History of Present Illness Consult date: 02/16/24 History of present illness: 78-year-old gentleman is electively admitted to hospital for bypass surgery. He has mitral regurgitation cardiomyopathy coronary artery disease and congestive heart failure and paroxysmal atrial fibrillation. He underwent bypass surgery with POSADA to LAD venous graft to OM1 and OM 2 also underwent a maze procedure and closure of the left atrial appendage. Today is postop day #1. He is in sinus rhythm stable hemodynamically. His predominant symptom is in the form of discomfort at the incision sites. He is free of any cardiac symptoms. I reviewed his records including x-rays EKGs lab tests. Past medical history is significant for coronary artery disease congestive heart failure cardiomyopathy mitral regurgitation and atrial fibrillation. Medications from home included Lopressor 125 twice daily Lasix 40 mg daily Imdur 30 mg daily Glucotrol XL Farxiga Lipitor Eliquis and amiodarone patient is allergic to penicillin. Family history is negative for premature coronary artery disease social history denies current smoking issues or drug abuse. Review of systems 14 out of 14 review of systems has been performed pertinence are as documented. On exam: Vital signs are stable there is no jugular venous distention carotid upstroke is normal there is no bruit chest exam reveals bilateral rhonchi heart exam reveals first and second heart sounds no gallop no murmur abdomen is soft exam extremities reveals mild edema peripheral pulses are felt Labs have been reviewed potassium is 3.5 BUN is 30 creatinine is 1.8 hemoglobin is 7.5 platelet count is 115 Assessment and plan: Coronary artery disease status post CABG Mitral regurgitation status post mitral valve repair Persistent atrial fibrillation status post maze procedure procedure and closure of the left atrial appendage Pacer dependent Plan: Incentive spirometry Supportive care Hold beta-blockers Patient is requiring pacemaker due to recent mitral valve surgery if it does not improve may need a pacemaker 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, 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 History of Any Multi-Drug Resistant Organisms: None Reported Past Surgical History: Appendectomy, Cardiac Ablation, Orthopedic Surgery, Orthopedic Surgery Additional Past Surgical History / Comment(s): Right hip replacement, bilateral cataract Past Anesthesia/Blood Transfusion Reactions: No Reported Reaction Smoking Status: Former smoker - Past Family History Father Family Medical History: Coronary Artery Disease (CAD) Additional Family Medical History / Comment(s): from an aneurysm Mother Family Medical History: Cancer Medications and Allergies Home Medications Medication Instructions Recorded Confirmed Type Timolol 0.5% Ophth Soln [Timoptic 1 drop BOTH EYES BID 12/24/23 02/15/24 History 0.5% Ophth Soln] Atorvastatin [Lipitor] 40 mg PO DAILY #30 tab 01/01/24 02/15/24 Rx Dapagliflozin Propanediol [Farxiga] 10 mg PO DAILY #30 tab 01/01/24 02/15/24 Rx Isosorbide Mononitrate ER [Imdur] 30 mg PO DAILY #30 tab 01/01/24 02/15/24 Rx Amiodarone [Cordarone] 200 mg PO DAILY 01/22/24 02/15/24 History Apixaban [Eliquis] 2.5 mg PO BID 01/24/24 02/15/24 History Folic Acid-Vit B Complex-Vit C 1 cap PO DAILY 01/24/24 02/15/24 History [Nephrocaps] Furosemide [Lasix] 40 mg PO DAILY 02/15/24 02/15/24 History Menthol-Zinc Oxide Oint 1 applic TOPICAL TID 02/15/24 02/15/24 History [Calmoseptine Ointment] Metoprolol Tartrate [Lopressor] 125 mg PO BID 02/15/24 02/15/24 History Pantoprazole [Protonix] 40 mg PO BID 02/15/24 02/15/24 History glipiZIDE XL [Glucotrol XL] 10 mg PO BID 02/15/24 02/15/24 History Allergies Allergy/AdvReac Type Severity Reaction Status Date / Time Penicillins Allergy Unknown Verified 02/15/24 07:14 Childhood Physical Exam Vitals: Vital Signs Temp Pulse Resp BP Pulse Ox FiO2 02/16/24 12:09 82 02/16/24 12:00 80 24 97 02/16/24 11:56 80 02/16/24 11:45 80 22 96 02/16/24 11:30 80 20 96 02/16/24 11:15 80 22 96 02/16/24 11:00 80 23 97 02/16/24 10:45 80 19 99 02/16/24 10:30 80 16 99 02/16/24 10:15 80 14 98 02/16/24 10:06 40 02/16/24 10:00 80 16 99 02/16/24 09:45 80 15 99 02/16/24 09:30 80 14 100 02/16/24 09:15 80 14 100 02/16/24 09:00 84 14 100 02/16/24 08:45 80 14 100 02/16/24 08:31 83 02/16/24 08:30 80 14 100 02/16/24 08:27 40 02/16/24 08:15 80 14 100 02/16/24 08:00 80 14 100 40 02/16/24 07:45 80 14 99 02/16/24 07:30 80 14 100 02/16/24 07:15 80 15 100 02/16/24 07:00 80 14 100 02/16/24 06:45 80 14 100 02/16/24 06:30 80 15 100 02/16/24 06:15 80 15 100 02/16/24 06:00 80 17 98 02/16/24 05:45 80 17 99 02/16/24 05:30 80 15 98 02/16/24 05:15 80 15 99 02/16/24 05:00 80 14 100/67 99 02/16/24 04:45 80 14 98 02/16/24 04:30 80 14 99 02/16/24 04:24 40 02/16/24 04:15 80 14 98 02/16/24 04:05 40 02/16/24 04:00 80 14 105/61 100 40 02/16/24 03:55 83 02/16/24 03:45 80 14 100 02/16/24 03:43 80 02/16/24 03:33 50 02/16/24 03:30 80 14 99 02/16/24 03:15 80 14 99 02/16/24 03:00 80 14 99/64 100 02/16/24 02:45 80 14 100 02/16/24 02:30 80 14 100 02/16/24 02:15 80 14 100 02/16/24 02:00 80 14 107/82 99 02/16/24 01:45 80 14 99 02/16/24 01:30 80 14 99 02/16/24 01:15 80 14 100 02/16/24 01:10 81 02/16/24 01:00 80 17 110/77 100 02/16/24 00:57 80 02/16/24 00:54 50 02/16/24 00:45 80 14 98 02/16/24 00:30 80 14 99 02/16/24 00:15 80 14 98 02/16/24 00:00 80 14 95/68 98 50 02/15/24 23:45 80 14 99 02/15/24 23:30 80 14 98 02/15/24 23:15 80 14 85/62 98 02/15/24 23:00 80 14 77/57 98 02/15/24 22:45 80 14 77/57 98 02/15/24 22:30 80 14 89/63 98 02/15/24 22:15 80 14 89/63 98 02/15/24 22:00 80 15 100/67 99 02/15/24 21:45 80 15 99 02/15/24 21:30 80 15 99 02/15/24 21:15 84 14 100 02/15/24 21:01 80 02/15/24 21:00 80 14 100/67 100 02/15/24 20:58 50 02/15/24 20:45 80 14 100 02/15/24 20:30 80 14 100 02/15/24 20:21 98.8 F 14 96/46 100 02/15/24 20:15 80 14 100 02/15/24 20:00 80 14 100 02/15/24 19:57 50 02/15/24 19:00 80 14 100 02/15/24 18:45 97.3 F L 80 14 88/44 100 02/15/24 18:30 80 14 100 02/15/24 18:25 97.3 F L 80 14 83/42 02/15/24 18:15 80 14 100 02/15/24 18:11 97.2 F L 80 14 83/42 02/15/24 18:00 80 14 100 02/15/24 17:51 50 02/15/24 17:45 80 14 100 02/15/24 17:30 80 14 100 02/15/24 17:15 80 14 100 02/15/24 17:00 80 14 100 02/15/24 16:45 80 14 100 02/15/24 16:30 80 14 100 02/15/24 16:15 80 14 100 02/15/24 16:00 97.3 F L 80 14 100 60 02/15/24 15:45 80 14 100 02/15/24 15:30 80 14 100 02/15/24 15:17 60 02/15/24 15:15 80 14 100 02/15/24 15:00 80 14 100 02/15/24 14:45 97.3 F L 80 14 100 02/15/24 14:36 100 02/15/24 14:23 100 Intake and Output 02/15/24 02/16/24 02/16/24 22:59 06:59 14:59 Intake Total 2720.287 1306.328 580.849 Output Total 1190 625 530 Balance 1530.287 681.328 50.849 Intake: IV 1664 1152 538 ACETAMINOPHEN IV (For NPO 100 ) 1,000 mg In Empty Bag 1 bag @ 400 mls/hr IVPB Q6H JAYLEN Rx#:[id number] Albumin Human 5% 250 ml 1000 500 In Empty Bag 1 bag @ 250 mls/hr IVPB Q1HR PRN Rx#: [id number] CO/CI 110 180 140 Calcium Gluconate in NaCl 100 2 gm In Saline 1 100ml. bag @ 100 mls/hr IVPB ONCE PRN Rx#:[id number] Pressure Bags 54 72 48 Sodium Chloride 0.9% 1, 300 400 300 000 ml @ 50 mls/hr IV . Q20H JAYLEN Rx#:[id number] ceFAZolin 2 gm In Sodium 50 Chloride 0.9% 50 ml @ 100 mls/hr IVPB Q8HR JAYLEN Rx# :[id number] Intake, IV Titration 746.287 154.328 42.849 Amount Albumin Human 5% 250 ml 500 In Empty Bag 1 bag @ 250 mls/hr IVPB Q1HR PRN Rx#: [id number] Insulin Regular 100 unit 14.948 9.377 14.468 In Sodium Chloride 0.9% 100 ml @ Per Protocol IV .Q0M JAYLEN Rx#:[id number] Milrinone-D5w Pmx 20 mg 10.2 In Dextrose/Water 1 100ml .bag @ 0.2 MCG/KG/MIN 5. 106 mls/hr IV .[id number] JAYLEN Rx#:[id number] Norepinephrine 4 mg In 5.999 110.401 Sodium Chloride 0.9% 250 ml @ 0.02 MCG/KG/MIN 6. 485 mls/hr IV .Q24H [facility] Rx#:[id number] Sodium Chloride 0.9% 1, 100 000 ml @ 50 mls/hr IV . Q20H [facility] Rx#:[id number] propofoL 1,000 mg In 115.140 34.550 28.381 Empty Bag 1 bag @ Titrate IV .Q0M [facility] Rx#: [id number] Blood Product 310 Rc As-1 Unit 310 [id number] Output: Chest Tube Drainage 610 370 320 Lt pleural 170 160 200 Mediastinal 440 210 120 Urine 580 255 210 Other: Voiding Method Indwelling Catheter Indwelling Catheter Indwelling Catheter Weight 95 kg 95 kg ABP, PAP, CO, CI - Last 8 Hours Arterial Blood Pressure 153/64 Arterial Blood Pressure 155/66 Arterial Blood Pressure 138/60 Arterial Blood Pressure 143/62 Arterial Blood Pressure 141/61 Arterial Blood Pressure 134/59 Arterial Blood Pressure 132/61 Arterial Blood Pressure 115/53 Arterial Blood Pressure 117/55 Arterial Blood Pressure 114/55 Arterial Blood Pressure 102/50 Arterial Blood Pressure 108/53 Arterial Blood Pressure 116/57 Arterial Blood Pressure 117/47 Arterial Blood Pressure 97/47 Arterial Blood Pressure 103/44 Arterial Blood Pressure 101/48 Arterial Blood Pressure 114/47 Arterial Blood Pressure 118/48 Arterial Blood Pressure 111/50 Arterial Blood Pressure 130/56 Arterial Blood Pressure 139/50 Arterial Blood Pressure 110/51 Arterial Blood Pressure 117/55 Arterial Blood Pressure 114/51 Arterial Blood Pressure 128/54 Arterial Blood Pressure 126/59 Arterial Blood Pressure 104/51 Arterial Blood Pressure 101/48 Arterial Blood Pressure 94/46 Arterial Blood Pressure 100/48 Pulmonary Artery Pressure 62/23 Pulmonary Artery Pressure 56/21 Pulmonary Artery Pressure 56/22 Pulmonary Artery Pressure 57/23 Pulmonary Artery Pressure 50/24 Pulmonary Artery Pressure 52/25 Pulmonary Artery Pressure 52/23 Pulmonary Artery Pressure 51/25 Pulmonary Artery Pressure 51/25 Pulmonary Artery Pressure 50/25 Pulmonary Artery Pressure 47/24 Pulmonary Artery Pressure 50/27 Pulmonary Artery Pressure 47/25 Pulmonary Artery Pressure 42/21 Pulmonary Artery Pressure 43/21 Pulmonary Artery Pressure 43/22 Pulmonary Artery Pressure 45/21 Pulmonary Artery Pressure 44/21 Pulmonary Artery Pressure 50/25 Pulmonary Artery Pressure 50/25 Pulmonary Artery Pressure 44/21 Pulmonary Artery Pressure 46/22 Pulmonary Artery Pressure 46/24 Pulmonary Artery Pressure 48/23 Pulmonary Artery Pressure 50/27 Pulmonary Artery Pressure 44/22 Pulmonary Artery Pressure 42/20 Pulmonary Artery Pressure 43/21 Pulmonary Artery Pressure 45/21 Cardiac Output 5.5 Cardiac Output 4.9 Cardiac Output 5.2 Cardiac Output 5.1 Cardiac Output 4.6 Cardiac Output 4.9 Cardiac Output 4.8 Cardiac Output 4.9 Cardiac Output 5 Cardiac Index 2.8 Cardiac Index 2.5 Cardiac Index 2.6 Cardiac Index 2.6 Cardiac Index 2.3 Cardiac Index 2.5 Cardiac Index 2.4 Cardiac Index 2.5 Cardiac Index 2.5 Results 02/16/24 05:00 02/16/24 05:00 Cardiac Enzymes 02/15/24 02/16/24 Range/Units 14:46 05:00 AST 194 H 157 H (17-59) U/L Coagulation 02/15/24 Range/Units 14:46 PT 13.6 H (10.0-12.5) sec APTT 28.6 (22.0-30.0) sec CBC 02/15/24 02/15/24 02/15/24 Range/Units 14:46 17:15 20:30 WBC 7.0 5.8 6.1 (3.8-10.6) k/uL RBC 3.25 L 2.42 L 2.80 L (4.30-5.90) m/uL Hgb 9.7 L 7.1 L D 8.5 L (13.0-17.5) gm/dL Hct 29.1 L 21.7 L 25.6 L (39.0-53.0) % Plt Count 153 127 L 113 L (150-450) k/uL 02/15/24 02/16/24 Range/Units 21:44 05:00 WBC 5.9 5.9 (3.8-10.6) k/uL RBC 2.73 L 2.54 L (4.30-5.90) m/uL Hgb 8.0 L 7.5 L (13.0-17.5) gm/dL Hct 24.8 L 23.2 L (39.0-53.0) % Plt Count 127 L 116 L (150-450) k/uL Comprehensive Metabolic Panel 02/15/24 02/16/24 Range/Units 14:46 05:00 Sodium 141 141 (137-145) mmol/L Potassium 3.9 3.5 (3.5-5.1) mmol/L Chloride 111 H 112 H (98-107) mmol/L Carbon Dioxide 23 18 L (22-30) mmol/L BUN 33 H 30 H (9-20) mg/dL Creatinine 1.56 H 1.84 H (0.66-1.25) mg/dL Glucose 149 H 117 H (74-99) mg/dL Calcium 9.0 8.5 (8.4-10.2) mg/dL AST 194 H 157 H (17-59) U/L ALT 95 H 67 H (4-49) U/L Alkaline Phosphatase 56 43 (38-126) U/L Total Protein 4.5 L 4.7 L (6.3-8.2) g/dL Albumin 2.8 L 3.3 L (3.5-5.0) g/dL Current Medications Generic Name Dose Route Start Last Admin Trade Name Freq PRN Reason Stop Dose Admin Acetaminophen 1,000 mg 02/16/24 00:01 Acetaminophen Tab 500 Mg Tab PO Q6HR PRN Fever And/ Or Mild Pain (1-3) Albuterol/Ipratropium 3 ml 02/15/24 14:10 02/16/24 03:43 Ipratropium-Albuterol 3 Ml Neb INHALATION 3 ml RT-Q2H PRN Administration Shortness Of Breath Or Wheezing Albuterol/Ipratropium 3 ml 02/15/24 20:00 02/16/24 11:53 Ipratropium-Albuterol 3 Ml Neb INHALATION 3 ml RT-QID JAYLEN Administration Aspirin 325 mg 02/16/24 09:00 02/16/24 08:00 Aspirin 325 Mg Tab PO 325 mg DAILY JAYLEN Administration Benzocaine/Menthol 1 each 02/15/24 14:10 Benzocaine/Menthol Lozeng 1 Each Lozenge MUCOUS MEM Q2H PRN Sore Throat Bisacodyl 10 mg 02/16/24 09:00 Bisacodyl 10 Mg Supp RECTAL DAILY PRN Constipation Calamine/Phenol 1 applic 02/15/24 16:00 02/16/24 08:01 Menthol-Zinc Oxide Oint 113 Gm Tube TOPICAL Not Given TID [facility] Protocol Clopidogrel Bisulfate 75 mg 02/16/24 09:00 02/16/24 08:00 Clopidogrel 75 Mg Tab PO 75 mg DAILY JAYLEN Administration Darbepoetin New 40 mcg 02/16/24 12:00 Darbepoetin New 40 Mcg/0.4 Ml Syringe SQ Q7D JAYLEN Dextrose/Water 25 ml 02/15/24 14:10 Dextrose 50% Syringe 50 Ml IVP PER PROTOCOL PRN Hypoglycemia Protocol Dextrose/Water 50 ml 02/15/24 14:10 Dextrose 50% Syringe 50 Ml IVP PER PROTOCOL PRN Hypoglycemia Protocol Heparin Sodium (Porcine) 5,000 unit 02/15/24 16:00 02/16/24 08:00 Heparin Sodium,Porcine 5,000 Unit/Ml 1 Ml Vial SQ 5,000 unit Q8HR JAYLEN Administration Hydralazine HCl 10 mg 02/15/24 14:10 Hydralazine Hcl 20 Mg/Ml 1 Ml Vial IVP Q1H PRN Blood Pressure - High Clevidipine 25 mg/ IV Solution 50 mls @ 2 mls/hr 02/15/24 14:10 02/15/24 16:38 IV Not Given .Q24H JAYLEN Protocol 1 MG/HR Norepinephrine Bitartrate 4 mg 254 mls @ 6.485 mls/hr 02/15/24 14:10 02/16/24 05:37 / Sodium Chloride IV 0 mcg/kg/min .Q24H JAYLEN 0 mls/hr Titration Protocol 0.02 MCG/KG/MIN Amiodarone HCl 150 mg/ 103 mls @ 618 mls/hr 02/15/24 14:10 Dextrose/Water IV .Q10M PRN A.FIB/FLUTTER Protocol Amiodarone HCl 360 mg/ 207.2 mls @ 34.533 mls/hr 02/15/24 14:10 Dextrose/Water IV .Q6H PRN A.FIB/FLUTTER Protocol 1 MG/MIN Amiodarone HCl 450 mg/ 250 mls @ 16.667 mls/hr 02/15/24 14:10 Dextrose/Water IV .Q15H PRN A.FIB/FLUTTER Protocol 0.5 MG/MIN Albumin Human 250 ml/ IV 250 mls @ 250 mls/hr 02/15/24 14:10 02/15/24 22:23 Solution IVPB 02/17/24 14:09 250 mls/hr Q1HR PRN Administration For Volume Protocol Propofol 1,000 mg/ IV Solution 100 mls @ 0 mls/hr 02/15/24 14:10 02/16/24 09:45 IV 0 mcg/kg/min .Q0M JAYLEN 0 mls/hr Titration Protocol Titrate Dexmedetomidine HCl 400 mcg/ 100 mls @ 0 mls/hr 02/15/24 14:10 IV Solution IV 02/16/24 14:11 .Q0M JAYLEN Protocol Titrate Insulin Human Regular 100 unit 101 mls @ 0 mls/hr 02/15/24 14:10 02/16/24 12:05 / Sodium Chloride IV 1.5 unit/hr .Q0M JAYLEN 1.515 mls/hr Titration Protocol Per Protocol Sodium Chloride 1,000 mls @ 50 mls/hr 02/15/24 14:10 02/16/24 11:13 Saline 0.9% IV 50 mls/hr .Q20H JAYLEN Administration Milrinone Lactate/Dextrose 20 100 mls @ 5.106 mls/hr 02/15/24 16:15 02/15/24 16:36 mg/ IV Solution IV 0.2 mcg/kg/min .[id number] JAYLEN 5.106 mls/hr Administration 0.2 MCG/KG/MIN Magnesium Hydroxide 2,400 mg 02/16/24 09:00 Magnesium Hydroxide 2,400 Mg/30 Ml Cup PO BID PRN Constipation Metoclopramide HCl 10 mg 02/15/24 14:10 Metoclopramide 5 Mg/Ml 2 Ml Vial IVP Q4H PRN Nausea And Vomiting Metoprolol Tartrate 12.5 mg 02/16/24 09:00 02/16/24 08:01 Metoprolol Tartrate 12.5 Mg Tab PO Not Given BID [facility] Miscellaneous Information 1 each 02/15/24 14:10 Potassium Replacement Protocol 1 Each Misc MISCELLANE DAILY PRN Per Protocol Protocol Miscellaneous Information 1 each 02/15/24 14:10 Magnesium Replacement Protocol 1 Each Misc MISCELLANE DAILY PRN Per Protocol Protocol Miscellaneous Information 1 each 02/15/24 14:10 Phosphorus Replacement Protoco 1 Each Misc MISCELLANE DAILY PRN Per Protocol Protocol Multivit/Ca Carb/B Cmplx/FA/Prenat 1 each 02/16/24 09:00 02/16/24 08:00 Folic Acid-Vit B Complex-Vit C 1 Cap PO 1 each DAILY JAYLEN Administration Ondansetron HCl 4 mg 02/15/24 14:10 Ondansetron 4 Mg/2 Ml Vial IVP Q6HR PRN Nausea And Vomiting Oxycodone HCl 5 mg 02/16/24 01:34 02/16/24 02:41 Oxycodone Hcl 5 Mg Tab PO 5 mg Q6HR PRN Administration Moderate Pain (Scale 4 to 6) Oxycodone HCl 10 mg 02/15/24 14:10 02/16/24 10:30 Oxycodone Hcl 5 Mg Tab PO 10 mg Q4HR PRN Administration Severe Pain (Scale 7 to 10) Pantoprazole Sodium 40 mg 02/16/24 09:00 02/16/24 08:00 Pantoprazole 40 Mg/10 Ml Vial IVP 40 mg DAILY JAYLEN Administration Senna/Docusate Sodium 2 each 02/16/24 21:00 Sennosides-Docusate Sodium 1 Each Tab PO HS JAYLEN Sodium Chloride 10 ml 02/15/24 21:00 02/16/24 08:00 Sodium Chloride 0.9% Flush 10 Ml Syringe IV 10 ml BID JAYLEN Administration Timolol Maleate 1 drops 02/15/24 21:00 02/16/24 08:02 Timolol 0.5% Ophth Drops 5 Ml Btl BOTH EYES 1 drops BID JAYLEN Administration Intake and Output 02/15/24 02/16/24 02/16/24 22:59 06:59 14:59 Intake Total 2720.287 1306.328 580.849 Output Total 1190 625 530 Balance 1530.287 681.328 50.849 Intake: IV 1664 1152 538 ACETAMINOPHEN IV (For NPO 100 ) 1,000 mg In Empty Bag 1 bag @ 400 mls/hr IVPB Q6H [facility]LEN Rx#:[id number] Albumin Human 5% 250 ml 1000 500 In Empty Bag 1 bag @ 250 mls/hr IVPB Q1HR PRN Rx#: [id number] CO/CI 110 180 140 Calcium Gluconate in NaCl 100 2 gm In Saline 1 100ml. bag @ 100 mls/hr IVPB ONCE PRN Rx#:[id number] Pressure Bags 54 72 48 Sodium Chloride 0.9% 1, 300 400 300 000 ml @ 50 mls/hr IV . Q20H [facility] Rx#:[id number] ceFAZolin 2 gm In Sodium 50 Chloride 0.9% 50 ml @ 100 mls/hr IVPB Q8HR [facility]LEN Rx# :[id number] Intake, IV Titration 746.287 154.328 42.849 Amount Albumin Human 5% 250 ml 500 In Empty Bag 1 bag @ 250 mls/hr IVPB Q1HR PRN Rx#: [id number] Insulin Regular 100 unit 14.948 9.377 14.468 In Sodium Chloride 0.9% 100 ml @ Per Protocol IV .Q0M [facility]LEN Rx#:[id number] Milrinone-D5w Pmx 20 mg 10.2 In Dextrose/Water 1 100ml .bag @ 0.2 MCG/KG/MIN 5. 106 mls/hr IV .[id number] [facility]LEN Rx#:[id number] Norepinephrine 4 mg In 5.999 110.401 Sodium Chloride 0.9% 250 ml @ 0.02 MCG/KG/MIN 6. 485 mls/hr IV .Q24H [facility] Rx#:[id number] Sodium Chloride 0.9% 1, 100 000 ml @ 50 mls/hr IV . Q20H [facility] Rx#:[id number] propofoL 1,000 mg In 115.140 34.550 28.381 Empty Bag 1 bag @ Titrate IV .Q0M [facility]LEN Rx#: [id number] Blood Product 310 Rc As-1 Unit 310 [id number] Output: Chest Tube Drainage 610 370 320 Lt pleural 170 160 200 Mediastinal 440 210 120 Urine 580 255 210 Other: Voiding Method Indwelling Catheter Indwelling Catheter Indwelling Catheter Weight 95 kg 95 kg Patient Weight 02/17/24 06:59 Weight 95 kg 02/16/24 05:00 02/16/24 05:00
--- NOTE | 2024-02-16 13:02 | P.PN ---
Subjective Progress Note Date: 02/16/24 Principal diagnosis: Severe mitral valve regurgitation, acute on chronic diastolic congestive heart failure, coronary artery disease and persistent paroxysmal atrial fibrillation. Past medical history significant for anemia without any evidence of acute GI bleed status post upper and lower endoscopy, chronic kidney disease stage III- IV, hypertension, diabetes mellitus type 2, obesity with a BMI of 31.8 kg/m, prostate cancer status post 45 radiation treatments several years ago, frequent diarrhea and inability to hold his bowel movements controlled with Imodium on an outpatient basis, hard of hearing, and remote history of nicotine dependence in which she quit smoking 45 years ago. POD #1 Coronary artery bypass grafting x 3 with left internal mammary artery to the left anterior sending coronary artery, sequential saphenous vein graft to first and second obtuse marginal coronary arteries, endovascular vein harvest left leg, mitral valve repair with 28 mm annular flex band, percutaneous placement of intra-aortic balloon pump via right common femoral artery, modified Vazquez-Maze with complete left-sided lesion set using radiofrequency and cryoablation both epicardial and intracardiac, and ligation of the left atrial appendage with 2 layer suture closure. Postoperative acute blood loss anemia, expected given cardiopulmonary bypass, hemodilution and preoperative history of anemia. The patient was seen and examined in follow-up today February 16, 2024 at his bedside in the intensive care unit. The patient remains intubated with mechani sunil ventilator support, remains sedated on propofol drip at 15 mcg/kg/min. The patient is moving all 4 extremities with verbal stimuli and following commands appropriately. Current mechanical ventilator settings are assist-control 14, TV 500, FiO2 40%, and PEEP of 5. Oxygen saturations on current mechanical ventilator settings are 100%. ABG results this morning show a pH of 7.33, pCO2 37, pO2 103, HCO3 19, oxygen saturation 98.9%, base excess -6.2. Bedside telemetry is showing a DDD paced rhythm at 80. Underlying rhythm is asystole. Right IJ cordis and Ainsworth-Julius catheter remains in place with current hemodynamic showing a cardiac output of 4.8, cardiac index 2.4, PA pressures 50/25, CVP 17 mmHg and SVR 1149. Intra-aortic balloon pump remains in place to right femoral artery, currently on a 1:1 setting, blood pressure showing 103/52, MAP 89 and augmented pressure of 121 mmHg. Right groin site is soft and nontender. Primacor ip remains infusing at 0.2 mcg/kg/min. Norepinephrine drip has been off since 5:30 AM this morning. Mediastinal and left pleural chest tubes remain in place to low continuous wall suction -20 cm H2O. No air leak is present. Draining thin serosanguineous drainage. Left pleural chest tube drained 160 mL output in the last 8 hours and 350 mL output since surgery. Mediastinal chest tubes drained 210 mL output in the last 8 hours and 650 mL output since surgery. Chest x-ray and laboratory results were reviewed. Objective - Vital Signs Vital signs: Vital Signs Temp 98.8 F 02/15/24 20:21 Pulse 80 02/16/24 08:00 Resp 14 02/16/24 08:00 BP 100/67 02/16/24 05:00 Pulse Ox 100 02/16/24 08:00 FiO2 40 02/16/24 08:00 Intake & Output 02/15/24 02/16/24 02/16/24 18:59 06:59 18:59 Intake Total 4081.304 1951.311 87.585 Output Total 3400 965 45 Balance 681.304 986.311 42.585 Weight 95 kg Intake: IV 1430 1438 79 ACETAMINOPHEN IV (For NPO 100 ) 1,000 mg In Empty Bag 1 bag @ 400 mls/hr IVPB Q6H JAYLEN Rx#:[id number] Albumin Human 5% 250 ml 1000 500 In Empty Bag 1 bag @ 250 mls/hr IVPB Q1HR PRN Rx#: [id number] CO/CI 60 230 20 Calcium Gluconate in NaCl 100 2 gm In Saline 1 100ml. bag @ 100 mls/hr IVPB ONCE PRN Rx#:[id number] Pressure Bags 18 108 9 Sodium Chloride 0.9% 1, 100 600 50 000 ml @ 50 mls/hr IV . Q20H JAYLEN Rx#:[id number] Intake, IV Titration 697.304 203.311 8.585 Amount Albumin Human 5% 250 ml 500 In Empty Bag 1 bag @ 250 mls/hr IVPB Q1HR PRN Rx#: [id number] Insulin Regular 100 unit 12.642 11.683 8.585 In Sodium Chloride 0.9% 100 ml @ Per Protocol IV .Q0M JAYLEN Rx#:[id number] Milrinone-D5w Pmx 20 mg 10.2 In Dextrose/Water 1 100ml .bag @ 0.2 MCG/KG/MIN 5. 106 mls/hr IV .[id number] JAYLEN Rx#:[id number] Norepinephrine 4 mg In 5.999 110.401 Sodium Chloride 0.9% 250 ml @ 0.02 MCG/KG/MIN 6. 485 mls/hr IV .Q24H JAYLEN Rx#:[id number] Sodium Chloride 0.9% 1, 100 000 ml @ 50 mls/hr IV . Q20H JAYLEN Rx#:[id number] propofoL 1,000 mg In 68.463 81.227 Empty Bag 1 bag @ Titrate IV .Q0M JAYLEN Rx#: [id number] Blood Product 1954 310 Ffp 24 Pher Acda Cnt2 225 Unit [id number] Ffp 24 Pher Acda Cnt2 217 Unit [id number] Platelet Pheresis Pas 257 Psoralen Unit [id number] Platelet Pheresis Pas 325 Psoralen Unit [id number] Rc As-1 Unit 310 [id number] Rc As-1 Unit 0 310 [id number] Rc As-1 Unit 310 [id number] Rc As-1 Unit 310 [id number] Output: Chest Tube Drainage 490 565 0 Lt pleural 100 235 0 Mediastinal 390 330 0 Urine 910 400 45 Estimated Blood Loss 1999 Other: Voiding Method Indwelling Catheter Indwelling Catheter ABP, PAP, CO, CI - Last Documented Arterial Blood Pressure 101/48 Pulmonary Artery Pressure 43/22 Cardiac Output 4.9 Cardiac Index 2.5 - Exam CONSTITUTIONAL: Sedated, laying in bed in the intensive care unit, remains i ntubated with mechanical ventilator support, appears comfortable, cooperative, no apparent acute distress. HEENT: Neck is supple, no JVD, no lymphadenopathy. Right IJ Cordis and Ainsworth- Julius catheter in place and functioning. RESPIRATORY: Lungs sounds essentially clear throughout, diminished to his b ilateral bases. Respirations are symmetrical and nonlabored with mechanical ventilator support. Current mechanical ventilator settings are assist-control 14, TV 500, FiO2 40% and a PEEP of 5. Oxygen saturations are 100% on current mechanical ventilator settings. Strong cough. CARDIOVASCULAR: Regular rhythm and rate. S1 and S2 present, negative for S3, gallop or murmur. Bedside telemetry is showing DDD paced rhythm heart rate 80 bpm. Sternum is stable. Palpable peripheral pulses bilaterally, +1 edema to his bilateral lower extremities. No calf pain or tenderness noted. Heart hugger in place. Knee-high RAYMUNDO hose and sequential compression devices in place to his bilateral lower extremities. GASTROINTESTINAL: Abdomen soft, nontender, nondistended. Hypoactive bowel sounds present 4 quadrants. OG tube in place to low intermittent wall suction. No guarding or rigidity. GENITOURINARY: Jones present draining clear, yellow urine. Urine output 255 mL in the last 8 hours. INTEGUMENTARY: Skin is warm and dry with no evidence of clubbing or cyanosis. Midline sternal incision clean dry and well approximated, covered with dry intact dressing. Left lower extremity EVH sites well approximated without redness or drainage. NEUROLOGIC: No focal deficits. Unable to accurately assess at this time as the patient remains sedated on propofol drip. MUSKULOSKELETAL: Able to move all extremities with verbal stimuli. PSYCHIATRIC: Unable to accurately assess at this time as the patient remains sedated on propofol drip. INVASIVE LINES AND TUBES: Mediastinal/left pleural chest tubes present and connected to low continuous wall suction, no air leaks present. Mediastinal tube with 210 mL of thin serosanguineous drainage overnight, 650 mL output in the last 24 hours. Left pleural chest tube with 160 mL of thin serosanguineous drainage overnight, 350 mL output in the last 24 hours. Atrial and ventricular epicardial pacemaker wires present, connected to generator, DDD mode of 80 bpm. Right internal jugular Ainsworth/Cordis, right radial arterial line present. Last CO 4.8, CI 2.4, PA 50/25, SVR 1149 and CVP [address] - Allied health notes Allied health notes reviewed: nursing - Labs CBC & Chem 7: 02/16/24 05:00 02/16/24 05:00 Labs: Abnormal Lab Results - Last 24 Hours (Table) 02/12/24 02/15/24 02/15/24 Range/Units 12:05 08:48 10:10 RBC (4.30-5.90) m/uL Hgb (13.0-17.5) gm/dL Hct (39.0-53.0) % RDW (11.5-15.5) % Plt Count (150-450) k/uL Lymphocytes # (1.0-4.8) k/uL PT (10.0-12.5) sec INR (<1.2) ABG pH (7.35-7.45) ABG pCO2 (35-45) mmHg ABG pO2 229 H 297 H (83-108) mmHg ABG HCO3 (21-25) mmol/L ABG O2 Saturation 99.4 H >99.4 H (94-97) % ABG Hematocrit 28 L 29 L (34.0-46.0) % ABG Potassium 3.1 L 3.3 L (3.4-4.5) mmol/L ABG Ionized Calcium (4.5-5.3) mg/dL ABG Glucose (75-99) mg/dL Hemoglobin 9.1 L 9.6 L (13.0-17.5) gm/dL Chloride (98-107) mmol/L Carbon Dioxide (22-30) mmol/L BUN (9-20) mg/dL Creatinine (0.66-1.25) mg/dL Glucose (74-99) mg/dL POC Glucose (mg/dL) (70-110) mg/dL Magnesium (1.6-2.3) mg/dL Total Bilirubin (0.2-1.3) mg/dL AST (17-59) U/L ALT (4-49) U/L Total Protein (6.3-8.2) g/dL Albumin (3.5-5.0) g/dL Arterial Blood Potassium 3.1 L 3.3 L (3.4-4.5) mmol/L Arterial Blood Glucose (75-99) mg/dL Crossmatch See Detail 02/15/24 02/15/24 02/15/24 Range/Units 10:40 11:11 12:04 RBC (4.30-5.90) m/uL Hgb (13.0-17.5) gm/dL Hct (39.0-53.0) % RDW (11.5-15.5) % Plt Count (150-450) k/uL Lymphocytes # (1.0-4.8) k/uL PT (10.0-12.5) sec INR (<1.2) ABG pH 7.51 H 7.46 H (7.35-7.45) ABG pCO2 33 L (35-45) mmHg ABG pO2 >420 H >420 H 229 H (83-108) mmHg ABG HCO3 26 H (21-25) mmol/L ABG O2 Saturation >99.4 H >99.4 H 99.4 H (94-97) % ABG Hematocrit 27 L 26 L 25 L (34.0-46.0) % ABG Potassium 3.3 L (3.4-4.5) mmol/L ABG Ionized Calcium 3.8 L 4.2 L 4.2 L (4.5-5.3) mg/dL ABG Glucose 121 H 102 H 120 H (75-99) mg/dL Hemoglobin 8.7 L 8.3 L 8.3 L (13.0-17.5) gm/dL Chloride (98-107) mmol/L Carbon Dioxide (22-30) mmol/L BUN (9-20) mg/dL Creatinine (0.66-1.25) mg/dL Glucose (74-99) mg/dL POC Glucose (mg/dL) (70-110) mg/dL Magnesium (1.6-2.3) mg/dL Total Bilirubin (0.2-1.3) mg/dL AST (17-59) U/L ALT (4-49) U/L Total Protein (6.3-8.2) g/dL Albumin (3.5-5.0) g/dL Arterial Blood Potassium 3.3 L (3.4-4.5) mmol/L Arterial Blood Glucose 121 H 102 H 120 H (75-99) mg/dL Crossmatch 02/15/24 02/15/24 02/15/24 Range/Units 12:16 12:37 13:20 RBC (4.30-5.90) m/uL Hgb (13.0-17.5) gm/dL Hct (39.0-53.0) % RDW (11.5-15.5) % Plt Count (150-450) k/uL Lymphocytes # (1.0-4.8) k/uL PT (10.0-12.5) sec INR (<1.2) ABG pH 7.23 L 7.32 L (7.35-7.45) ABG pCO2 60 H 34 L (35-45) mmHg ABG pO2 >420 H >420 H 327 H (83-108) mmHg ABG HCO3 (21-25) mmol/L ABG O2 Saturation 99.4 H 99.4 H >99.4 H (94-97) % ABG Hematocrit 25 L 26 L 23 L (34.0-46.0) % ABG Potassium (3.4-4.5) mmol/L ABG Ionized Calcium 4.2 L 4.1 L (4.5-5.3) mg/dL ABG Glucose 126 H 150 H 140 H (75-99) mg/dL Hemoglobin 8.2 L 8.5 L 7.4 L (13.0-17.5) gm/dL Chloride (98-107) mmol/L Carbon Dioxide (22-30) mmol/L BUN (9-20) mg/dL Creatinine (0.66-1.25) mg/dL Glucose (74-99) mg/dL POC Glucose (mg/dL) (70-110) mg/dL Magnesium (1.6-2.3) mg/dL Total Bilirubin (0.2-1.3) mg/dL AST (17-59) U/L ALT (4-49) U/L Total Protein (6.3-8.2) g/dL Albumin (3.5-5.0) g/dL Arterial Blood Potassium (3.4-4.5) mmol/L Arterial Blood Glucose 126 H 150 H 140 H (75-99) mg/dL Crossmatch 02/15/24 02/15/24 02/15/24 Range/Units 14:02 14:45 14:46 RBC 3.25 L (4.30-5.90) m/uL Hgb 9.7 L (13.0-17.5) gm/dL Hct 29.1 L (39.0-53.0) % RDW 17.5 H (11.5-15.5) % Plt Count (150-450) k/uL Lymphocytes # 0.8 L (1.0-4.8) k/uL PT (10.0-12.5) sec INR (<1.2) ABG pH 7.32 L (7.35-7.45) ABG pCO2 (35-45) mmHg ABG pO2 >420 H (83-108) mmHg ABG HCO3 20 L (21-25) mmol/L ABG O2 Saturation 99.4 H (94-97) % ABG Hematocrit 27 L (34.0-46.0) % ABG Potassium (3.4-4.5) mmol/L ABG Ionized Calcium 3.9 L (4.5-5.3) mg/dL ABG Glucose 154 H (75-99) mg/dL Hemoglobin 8.8 L (13.0-17.5) gm/dL Chloride (98-107) mmol/L Carbon Dioxide (22-30) mmol/L BUN (9-20) mg/dL Creatinine (0.66-1.25) mg/dL Glucose (74-99) mg/dL POC Glucose (mg/dL) 173 H (70-110) mg/dL Magnesium (1.6-2.3) mg/dL Total Bilirubin (0.2-1.3) mg/dL AST (17-59) U/L ALT (4-49) U/L Total Protein (6.3-8.2) g/dL Albumin (3.5-5.0) g/dL Arterial Blood Potassium (3.4-4.5) mmol/L Arterial Blood Glucose 154 H (75-99) mg/dL Crossmatch 02/15/24 02/15/24 02/15/24 Range/Units 14:46 14:46 15:13 RBC (4.30-5.90) m/uL Hgb (13.0-17.5) gm/dL Hct (39.0-53.0) % RDW (11.5-15.5) % Plt Count (150-450) k/uL Lymphocytes # (1.0-4.8) k/uL PT 13.6 H (10.0-12.5) sec INR 1.3 H (<1.2) ABG pH (7.35-7.45) ABG pCO2 (35-45) mmHg ABG pO2 204 H (83-108) mmHg ABG HCO3 (21-25) mmol/L ABG O2 Saturation 100.5 H (94-97) % ABG Hematocrit (34.0-46.0) % ABG Potassium (3.4-4.5) mmol/L ABG Ionized Calcium (4.5-5.3) mg/dL ABG Glucose (75-99) mg/dL Hemoglobin (13.0-17.5) gm/dL Chloride 111 H (98-107) mmol/L Carbon Dioxide (22-30) mmol/L BUN 33 H (9-20) mg/dL Creatinine 1.56 H (0.66-1.25) mg/dL Glucose 149 H (74-99) mg/dL POC Glucose (mg/dL) (70-110) mg/dL Magnesium 4.0 H (1.6-2.3) mg/dL Total Bilirubin 2.2 H (0.2-1.3) mg/dL AST 194 H (17-59) U/L ALT 95 H (4-49) U/L Total Protein 4.5 L (6.3-8.2) g/dL Albumin 2.8 L (3.5-5.0) g/dL Arterial Blood Potassium (3.4-4.5) mmol/L Arterial Blood Glucose (75-99) mg/dL Crossmatch 02/15/24 02/15/24 02/15/24 Range/Units 15:44 16:32 17:15 RBC 2.42 L (4.30-5.90) m/uL Hgb 7.1 L D (13.0-17.5) gm/dL Hct 21.7 L (39.0-53.0) % RDW 17.6 H (11.5-15.5) % Plt Count 127 L (150-450) k/uL Lymphocytes # 0.6 L (1.0-4.8) k/uL PT (10.0-12.5) sec INR (<1.2) ABG pH (7.35-7.45) ABG pCO2 (35-45) mmHg ABG pO2 (83-108) mmHg ABG HCO3 (21-25) mmol/L ABG O2 Saturation (94-97) % ABG Hematocrit (34.0-46.0) % ABG Potassium (3.4-4.5) mmol/L ABG Ionized Calcium (4.5-5.3) mg/dL ABG Glucose (75-99) mg/dL Hemoglobin (13.0-17.5) gm/dL Chloride (98-107) mmol/L Carbon Dioxide (22-30) mmol/L BUN (9-20) mg/dL Creatinine (0.66-1.25) mg/dL Glucose (74-99) mg/dL POC Glucose (mg/dL) 170 H 160 H (70-110) mg/dL Magnesium (1.6-2.3) mg/dL Total Bilirubin (0.2-1.3) mg/dL AST (17-59) U/L ALT (4-49) U/L Total Protein (6.3-8.2) g/dL Albumin (3.5-5.0) g/dL Arterial Blood Potassium (3.4-4.5) mmol/L Arterial Blood Glucose (75-99) mg/dL Crossmatch 02/15/24 02/15/24 02/15/24 Range/Units 17:20 18:49 19:41 RBC (4.30-5.90) m/uL Hgb (13.0-17.5) gm/dL Hct (39.0-53.0) % RDW (11.5-15.5) % Plt Count (150-450) k/uL Lymphocytes # (1.0-4.8) k/uL PT (10.0-12.5) sec INR (<1.2) ABG pH (7.35-7.45) ABG pCO2 (35-45) mmHg ABG pO2 (83-108) mmHg ABG HCO3 (21-25) mmol/L ABG O2 Saturation (94-97) % ABG Hematocrit (34.0-46.0) % ABG Potassium (3.4-4.5) mmol/L ABG Ionized Calcium (4.5-5.3) mg/dL ABG Glucose (75-99) mg/dL Hemoglobin (13.0-17.5) gm/dL Chloride (98-107) mmol/L Carbon Dioxide (22-30) mmol/L BUN (9-20) mg/dL Creatinine (0.66-1.25) mg/dL Glucose (74-99) mg/dL POC Glucose (mg/dL) 152 H 131 H 112 H (70-110) mg/dL Magnesium (1.6-2.3) mg/dL Total Bilirubin (0.2-1.3) mg/dL AST (17-59) U/L ALT (4-49) U/L Total Protein (6.3-8.2) g/dL Albumin (3.5-5.0) g/dL Arterial Blood Potassium (3.4-4.5) mmol/L Arterial Blood Glucose (75-99) mg/dL Crossmatch 02/15/24 02/15/24 02/15/24 Range/Units 20:30 20:59 21:44 RBC 2.80 L 2.73 L (4.30-5.90) m/uL Hgb 8.5 L 8.0 L (13.0-17.5) gm/dL Hct 25.6 L 24.8 L (39.0-53.0) % RDW 17.5 H 17.2 H (11.5-15.5) % Plt Count 113 L 127 L (150-450) k/uL Lymphocytes # 0.6 L 0.4 L (1.0-4.8) k/uL PT (10.0-12.5) sec INR (<1.2) ABG pH (7.35-7.45) ABG pCO2 (35-45) mmHg ABG pO2 (83-108) mmHg ABG HCO3 (21-25) mmol/L ABG O2 Saturation (94-97) % ABG Hematocrit (34.0-46.0) % ABG Potassium (3.4-4.5) mmol/L ABG Ionized Calcium (4.5-5.3) mg/dL ABG Glucose (75-99) mg/dL Hemoglobin (13.0-17.5) gm/dL Chloride (98-107) mmol/L Carbon Dioxide (22-30) mmol/L BUN (9-20) mg/dL Creatinine (0.66-1.25) mg/dL Glucose (74-99) mg/dL POC Glucose (mg/dL) 137 H (70-110) mg/dL Magnesium (1.6-2.3) mg/dL Total Bilirubin (0.2-1.3) mg/dL AST (17-59) U/L ALT (4-49) U/L Total Protein (6.3-8.2) g/dL Albumin (3.5-5.0) g/dL Arterial Blood Potassium (3.4-4.5) mmol/L Arterial Blood Glucose (75-99) mg/dL Crossmatch 02/15/24 02/15/24 02/15/24 Range/Units 21:55 22:52 23:53 RBC (4.30-5.90) m/uL Hgb (13.0-17.5) gm/dL Hct (39.0-53.0) % RDW (11.5-15.5) % Plt Count (150-450) k/uL Lymphocytes # (1.0-4.8) k/uL PT (10.0-12.5) sec INR (<1.2) ABG pH (7.35-7.45) ABG pCO2 (35-45) mmHg ABG pO2 (83-108) mmHg ABG HCO3 (21-25) mmol/L ABG O2 Saturation (94-97) % ABG Hematocrit (34.0-46.0) % ABG Potassium (3.4-4.5) mmol/L ABG Ionized Calcium (4.5-5.3) mg/dL ABG Glucose (75-99) mg/dL Hemoglobin (13.0-17.5) gm/dL Chloride (98-107) mmol/L Carbon Dioxide (22-30) mmol/L BUN (9-20) mg/dL Creatinine (0.66-1.25) mg/dL Glucose (74-99) mg/dL POC Glucose (mg/dL) 154 H 154 H 160 H (70-110) mg/dL Magnesium (1.6-2.3) mg/dL Total Bilirubin (0.2-1.3) mg/dL AST (17-59) U/L ALT (4-49) U/L Total Protein (6.3-8.2) g/dL Albumin (3.5-5.0) g/dL Arterial Blood Potassium (3.4-4.5) mmol/L Arterial Blood Glucose (75-99) mg/dL Crossmatch 02/16/24 02/16/24 02/16/24 Range/Units 00:52 02:56 03:56 RBC (4.30-5.90) m/uL Hgb (13.0-17.5) gm/dL Hct (39.0-53.0) % RDW (11.5-15.5) % Plt Count (150-450) k/uL Lymphocytes # (1.0-4.8) k/uL PT (10.0-12.5) sec INR (<1.2) ABG pH (7.35-7.45) ABG pCO2 (35-45) mmHg ABG pO2 (83-108) mmHg ABG HCO3 (21-25) mmol/L ABG O2 Saturation (94-97) % ABG Hematocrit (34.0-46.0) % ABG Potassium (3.4-4.5) mmol/L ABG Ionized Calcium (4.5-5.3) mg/dL ABG Glucose (75-99) mg/dL Hemoglobin (13.0-17.5) gm/dL Chloride (98-107) mmol/L Carbon Dioxide (22-30) mmol/L BUN (9-20) mg/dL Creatinine (0.66-1.25) mg/dL Glucose (74-99) mg/dL POC Glucose (mg/dL) 140 H 131 H 136 H (70-110) mg/dL Magnesium (1.6-2.3) mg/dL Total Bilirubin (0.2-1.3) mg/dL AST (17-59) U/L ALT (4-49) U/L Total Protein (6.3-8.2) g/dL Albumin (3.5-5.0) g/dL Arterial Blood Potassium (3.4-4.5) mmol/L Arterial Blood Glucose (75-99) mg/dL Crossmatch 02/16/24 02/16/24 02/16/24 Range/Units 05:00 05:00 05:01 RBC 2.54 L (4.30-5.90) m/uL Hgb 7.5 L (13.0-17.5) gm/dL Hct 23.2 L (39.0-53.0) % RDW 17.2 H (11.5-15.5) % Plt Count 116 L (150-450) k/uL Lymphocytes # 0.6 L (1.0-4.8) k/uL PT (10.0-12.5) sec INR (<1.2) ABG pH (7.35-7.45) ABG pCO2 (35-45) mmHg ABG pO2 (83-108) mmHg ABG HCO3 (21-25) mmol/L ABG O2 Saturation (94-97) % ABG Hematocrit (34.0-46.0) % ABG Potassium (3.4-4.5) mmol/L ABG Ionized Calcium (4.5-5.3) mg/dL ABG Glucose (75-99) mg/dL Hemoglobin (13.0-17.5) gm/dL Chloride 112 H (98-107) mmol/L Carbon Dioxide 18 L (22-30) mmol/L BUN 30 H (9-20) mg/dL Creatinine 1.84 H (0.66-1.25) mg/dL Glucose 117 H (74-99) mg/dL POC Glucose (mg/dL) 133 H (70-110) mg/dL Magnesium 3.1 H (1.6-2.3) mg/dL Total Bilirubin (0.2-1.3) mg/dL AST 157 H (17-59) U/L ALT 67 H (4-49) U/L Total Protein 4.7 L (6.3-8.2) g/dL Albumin 3.3 L (3.5-5.0) g/dL Arterial Blood Potassium (3.4-4.5) mmol/L Arterial Blood Glucose (75-99) mg/dL Crossmatch 02/16/24 02/16/24 02/16/24 Range/Units 05:11 05:53 06:52 RBC (4.30-5.90) m/uL Hgb (13.0-17.5) gm/dL Hct (39.0-53.0) % RDW (11.5-15.5) % Plt Count (150-450) k/uL Lymphocytes # (1.0-4.8) k/uL PT (10.0-12.5) sec INR (<1.2) ABG pH 7.33 L (7.35-7.45) ABG pCO2 (35-45) mmHg ABG pO2 (83-108) mmHg ABG HCO3 19 L (21-25) mmol/L ABG O2 Saturation 98.9 H (94-97) % ABG Hematocrit (34.0-46.0) % ABG Potassium (3.4-4.5) mmol/L ABG Ionized Calcium (4.5-5.3) mg/dL ABG Glucose (75-99) mg/dL Hemoglobin (13.0-17.5) gm/dL Chloride (98-107) mmol/L Carbon Dioxide (22-30) mmol/L BUN (9-20) mg/dL Creatinine (0.66-1.25) mg/dL Glucose (74-99) mg/dL POC Glucose (mg/dL) 126 H 123 H (70-110) mg/dL Magnesium (1.6-2.3) mg/dL Total Bilirubin (0.2-1.3) mg/dL AST (17-59) U/L ALT (4-49) U/L Total Protein (6.3-8.2) g/dL Albumin (3.5-5.0) g/dL Arterial Blood Potassium (3.4-4.5) mmol/L Arterial Blood Glucose (75-99) mg/dL Crossmatch 02/16/24 Range/Units 07:58 RBC (4.30-5.90) m/uL Hgb (13.0-17.5) gm/dL Hct (39.0-53.0) % RDW (11.5-15.5) % Plt Count (150-450) k/uL Lymphocytes # (1.0-4.8) k/uL PT (10.0-12.5) sec INR (<1.2) ABG pH (7.35-7.45) ABG pCO2 (35-45) mmHg ABG pO2 (83-108) mmHg ABG HCO3 (21-25) mmol/L ABG O2 Saturation (94-97) % ABG Hematocrit (34.0-46.0) % ABG Potassium (3.4-4.5) mmol/L ABG Ionized Calcium (4.5-5.3) mg/dL ABG Glucose (75-99) mg/dL Hemoglobin (13.0-17.5) gm/dL Chloride (98-107) mmol/L Carbon Dioxide (22-30) mmol/L BUN (9-20) mg/dL Creatinine (0.66-1.25) mg/dL Glucose (74-99) mg/dL POC Glucose (mg/dL) 121 H (70-110) mg/dL Magnesium (1.6-2.3) mg/dL Total Bilirubin (0.2-1.3) mg/dL AST (17-59) U/L ALT (4-49) U/L Total Protein (6.3-8.2) g/dL Albumin (3.5-5.0) g/dL Arterial Blood Potassium (3.4-4.5) mmol/L Arterial Blood Glucose (75-99) mg/dL Crossmatch - Imaging and Cardiology Chest x-ray: report reviewed, image reviewed Assessment and Plan Assessment: Severe mitral valve regurgitation, status post mitral valve repair with 28 mm annular flex band Coronary artery disease status post coronary artery bypass grafting x 3 with left internal mammary artery to the left anterior sending coronary artery Persistent paroxysmal atrial fibrillation status post modified Vazquez-Maze with complete left-sided lesion set using radiofrequency and cryoablation both epicardial and intracardiac, and ligation of the left atrial appendage with 2 layer suture closure Acute on chronic diastolic congestive heart failure, status post percutaneous placement of intra-aortic balloon pump via right common femoral artery Chronic kidney disease stage III-IV, with a preoperative creatinine of 2.24 Chronic anemia without any evidence of acute GI bleed, status post recent upper and lower endoscopy Hypertension Diabetes mellitus type 2 with a preoperative hemoglobin A1c of 9.3% Obesity with a BMI of 31.8 kg/m Prostate cancer status post 45 radiation treatment several years ago Frequent diarrhea and inability to hold his bowel movements controlled with Imodium on an outpatient basis Remote history of nicotine dependence quit smoking 45 years ago Postoperative acute blood loss anemia, expected given cardiopulmonary bypass, hemodilution and his preoperative anemia Elevated transaminitis enzymes, AST 157, ALT 67 Plan: Continue to maximize medical therapy with aspirin, statin, and Plavix. Hold metoprolol tartrate at this time, as underlying rhythm is asystole, currently being DDD paced 80 bpm. Continue Primacor drip at 0.2 mcg/kg/min. Continue right IJ cordis and Ainsworth- Julius catheter with hemodynamic monitoring. Will monitor daily labs and chest x-rays. Electrolyte replacement per protocol. Once extubated encourage incentive spirometry use 10 times every hour while awake. Bronchodilators per pulmonology/critical care management. Once extubated increase activity, ambulate as tolerated. PT/OT/cardiac rehab consulted. Patient walks with a walker at home. Pain control per current medication regimen. No Toradol at this time, avoid nephrotoxic agents Consult nephrology, patient has a history of chronic kidney disease stage III- IV. Home dose of Nephrocaps restarted. Insulin management per internal medicine. Patient should remain on IV insulin for another 24 hours, then may transition to subcutaneous insulin per protocol. Preoperative hemoglobin A1c 9.3%. Continue chest tubes for another 24 hours. Strict accurate output monitoring. Continue Jones catheter for another 24 hours, continue to record strict accurate intake and output. Daily weights. Place balloon pump to 1:2 setting, anticipate removal of intra-aortic balloon pump this morning, once balloon pump has been removed wean to extubate. Continue atrial and ventricular epicardial pacemaker wires, keep epicardial pacemaker wires connected to bedside backup pacemaker generator on a DDD mode of 80 bpm. More recommendations to follow based on patient's clinical course. Time with Patient: Greater than 30
[2024-02-16 13:03] LABS: Glucose,Whole Blood 129 mg/dL (70-110)
--- NOTE | 2024-02-16 13:10 | P.PN ---
Progress Note - Text Progress Note Date: 02/16/24 Intra-aortic balloon pump removal: The right groin was examined. There is no evidence of hematoma. The intra- aortic balloon pump was turned off. The pre-existing sheath and balloon were removed en michelle and the artery was allowed to bleed both antegrade and retrograde. Direct manual pressure was held over the site for 30 minutes. There was no residual bleeding or hematoma noted. The groin itself was soft. The right lower extremity appears to be warm and well-perfused. Palpable dorsal is pedis pulse. There is no immediate complications. The patient remained hemodynamically stable with a good follow-up cardiac index. Post intra-aortic balloon pump removal cardiac output 5.1, cardiac index 2.6, PA pressures 50/25, CVP 17 mmHg and SVR 799. FemoStop applied to right groin.
--- NOTE | 2024-02-16 13:34 | P.CONS ---
History of Present Illness - Reason for Consult Consult date: 02/16/24 Medical management - History of Present Illness History of present illness; patient is a 78-year-old gentleman with past medical history significant for prostate cancer, diabetes mellitus, hypertension, angina, atrial fibrillation normally anticoagulated on Eliquis, recent cardiac workup showing multivessel coronary disease and severe MR who presented to the hospital for open heart surgery. Patient underwent coronary artery bypass grafting x 3 with POSADA to LAD, sequential saphenous vein graft to first and second obtuse marginal coronary arteries, mitral valve repair with 28 mm annular flex band, modified Vazquez-Maze with completed left sided lesion set using RF and cryoablation, ligation of left atrial appendage, and percutaneous placement of intra-aortic balloon pump. Patient was admitted to ICU. Internal medicine team were consulted for medical management REVIEW OF SYSTEMS: Review of system cannot be obtained as patient is currently intubated PHYSICAL EXAMINATION: GENERAL: The patient is intubated HEENT: Pupils are round and equally reacting to light. EOMI. No scleral icterus. No conjunctival pallor. Normocephalic, atraumatic. No pharyngeal erythema. No thyromegaly. CARDIOVASCULAR: S1 and S2 present. No murmurs, rubs, or gallops. PULMONARY: Chest is clear to auscultation, no wheezing or crackles. Chest tube seen ABDOMEN: Soft, nontender, nondistended, normoactive bowel sounds. No palpable o rganomegaly. MUSCULOSKELETAL: No joint swelling or deformity. EXTREMITIES: No cyanosis, clubbing, or pedal edema. NEUROLOGICAL: Currently intubated SKIN: No rashes. Assessment and plan coronary artery bypass grafting x 3 with POSADA to LAD, sequential saphenous vein graft to first and second obtuse marginal coronary arteries, mitral valve repair with 28 mm annular flex band, modified Vazquez-Maze with completed left sided lesion set using RF and cryoablation, ligation of left atrial appendage, and percutaneous placement of intra-aortic balloon pump. Postop vent dependent respiratory failure Multivessel coronary artery disease History of severe mitral valve regurgitation Acute blood loss anemia Acute kidney injury Diabetes mellitus type 2 History of atrial fibrillation History of hypertension Former tobacco smoker History of prostate cancer with previous radiation Monitor vital signs Monitor CBC Monitor CMP Continue telemetry monitoring Aggressive bronchopulmonary hygiene Continue vent management per ICU Continue vasopressor Continue insulin drip CT surgery following ICU following Labs and medication were reviewed.. Continue same treatment. Continue with symptomatic treatment. Resume home medication. Monitor labs and vitals. DVT and GI prophylaxis. Further recommendations as per clinical course of the patient Dictation was produced using [employer] dictation software. please excuse any grammatical, word or spelling errors. 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 History of Any Multi-Drug Resistant Organisms: None Reported Past Surgical History: Appendectomy, Cardiac Ablation, Orthopedic Surgery, Orth opedic Surgery Additional Past Surgical History / Comment(s): Right hip replacement, bilateral cataract Past Anesthesia/Blood Transfusion Reactions: No Reported Reaction Smoking Status: Former smoker - Past Family History Father Family Medical History: Coronary Artery Disease (CAD) Additional Family Medical History / Comment(s): from an aneurysm Mother Family Medical History: Cancer Medications and Allergies Home Medications Medication Instructions Recorded Confirmed Type Timolol 0.5% Ophth Soln [Timoptic 1 drop BOTH EYES BID 12/24/23 02/15/24 History 0.5% Ophth Soln] Atorvastatin [Lipitor] 40 mg PO DAILY #30 tab 01/01/24 02/15/24 Rx Dapagliflozin Propanediol [Farxiga] 10 mg PO DAILY #30 tab 01/01/24 02/15/24 Rx Isosorbide Mononitrate ER [Imdur] 30 mg PO DAILY #30 tab 01/01/24 02/15/24 Rx Amiodarone [Cordarone] 200 mg PO DAILY 01/22/24 02/15/24 History Apixaban [Eliquis] 2.5 mg PO BID 01/24/24 02/15/24 History Folic Acid-Vit B Complex-Vit C 1 cap PO DAILY 01/24/24 02/15/24 History [Nephrocaps] Furosemide [Lasix] 40 mg PO DAILY 02/15/24 02/15/24 History Menthol-Zinc Oxide Oint 1 applic TOPICAL TID 02/15/24 02/15/24 History [Calmoseptine Ointment] Metoprolol Tartrate [Lopressor] 125 mg PO BID 02/15/24 02/15/24 History Pantoprazole [Protonix] 40 mg PO BID 02/15/24 02/15/24 History glipiZIDE XL [Glucotrol XL] 10 mg PO BID 02/15/24 02/15/24 History Allergies Allergy/AdvReac Type Severity Reaction Status Date / Time Penicillins Allergy Unknown Verified 02/15/24 07:14 Childhood Physical Exam Vitals: Vital Signs Temp Pulse Resp BP Pulse Ox FiO2 02/16/24 09:30 80 14 100 02/16/24 09:15 80 14 100 02/16/24 09:00 80 14 100 02/16/24 08:45 80 14 100 02/16/24 08:31 83 02/16/24 08:30 80 14 100 02/16/24 08:27 40 02/16/24 08:15 80 14 100 02/16/24 08:00 80 14 100 40 02/16/24 07:45 80 14 99 02/16/24 07:30 80 14 100 02/16/24 07:15 80 15 100 02/16/24 07:00 80 14 100 02/16/24 06:45 80 14 100 02/16/24 06:30 80 15 100 02/16/24 06:15 80 15 100 02/16/24 06:00 80 17 98 02/16/24 05:45 80 17 99 02/16/24 05:30 80 15 98 02/16/24 05:15 80 15 99 02/16/24 05:00 80 14 100/67 99 02/16/24 04:45 80 14 98 02/16/24 04:30 80 14 99 02/16/24 04:24 40 02/16/24 04:15 80 14 98 02/16/24 04:05 40 02/16/24 04:00 80 14 105/61 100 40 02/16/24 03:55 83 02/16/24 03:45 80 14 100 02/16/24 03:43 80 02/16/24 03:33 50 02/16/24 03:30 80 14 99 02/16/24 03:15 80 14 99 02/16/24 03:00 80 14 99/64 100 02/16/24 02:45 80 14 100 02/16/24 02:30 80 14 100 02/16/24 02:15 80 14 100 02/16/24 02:00 80 14 107/82 99 02/16/24 01:45 80 14 99 02/16/24 01:30 80 14 99 02/16/24 01:15 80 14 100 02/16/24 01:10 81 02/16/24 01:00 80 17 110/77 100 02/16/24 00:57 80 02/16/24 00:54 50 02/16/24 00:45 80 14 98 02/16/24 00:30 80 14 99 02/16/24 00:15 80 14 98 02/16/24 00:00 80 14 95/68 98 50 02/15/24 23:45 80 14 99 02/15/24 23:30 80 14 98 02/15/24 23:15 80 14 85/62 98 02/15/24 23:00 80 14 77/57 98 02/15/24 22:45 80 14 77/57 98 02/15/24 22:30 80 14 89/63 98 02/15/24 22:15 80 14 89/63 98 02/15/24 22:00 80 15 100/67 99 02/15/24 21:45 80 15 99 02/15/24 21:30 80 15 99 02/15/24 21:15 84 14 100 02/15/24 21:01 80 02/15/24 21:00 80 14 100/67 100 02/15/24 20:58 50 02/15/24 20:45 80 14 100 02/15/24 20:30 80 14 100 02/15/24 20:21 98.8 F 14 96/46 100 02/15/24 20:15 80 14 100 02/15/24 20:00 80 14 100 02/15/24 19:57 50 02/15/24 19:00 80 14 100 02/15/24 18:45 97.3 F L 80 14 88/44 100 02/15/24 18:30 80 14 100 02/15/24 18:25 97.3 F L 80 14 83/42 02/15/24 18:15 80 14 100 02/15/24 18:11 97.2 F L 80 14 83/42 02/15/24 18:00 80 14 100 02/15/24 17:51 50 02/15/24 17:45 80 14 100 02/15/24 17:30 80 14 100 02/15/24 17:15 80 14 100 02/15/24 17:00 80 14 100 02/15/24 16:45 80 14 100 02/15/24 16:30 80 14 100 02/15/24 16:15 80 14 100 02/15/24 16:00 97.3 F L 80 14 100 60 02/15/24 15:45 80 14 100 02/15/24 15:30 80 14 100 02/15/24 15:17 60 02/15/24 15:15 80 14 100 02/15/24 15:00 80 14 100 02/15/24 14:45 97.3 F L 80 14 100 02/15/24 14:36 100 02/15/24 14:23 100 02/15/24 10:22 97.0 F L 80 14 80/38 100 Intake and Output 02/15/24 02/16/24 02/16/24 22:59 06:59 14:59 Intake Total 2720.287 1306.328 343.966 Output Total 1190 625 300 Balance 1530.287 681.328 43.966 Intake: IV 1664 1152 307 ACETAMINOPHEN IV (For NPO 100 ) 1,000 mg In Empty Bag 1 bag @ 400 mls/hr IVPB Q6H JAYLEN Rx#:[id number] Albumin Human 5% 250 ml 1000 500 In Empty Bag 1 bag @ 250 mls/hr IVPB Q1HR PRN Rx#: [id number] CO/CI 110 180 80 Calcium Gluconate in NaCl 100 2 gm In Saline 1 100ml. bag @ 100 mls/hr IVPB ONCE PRN Rx#:[id number] Pressure Bags 54 72 27 Sodium Chloride 0.9% 1, 300 400 150 000 ml @ 50 mls/hr IV . Q20H JAYLEN Rx#:[id number] ceFAZolin 2 gm In Sodium 50 Chloride 0.9% 50 ml @ 100 mls/hr IVPB Q8HR JAYLEN Rx# :[id number] Intake, IV Titration 746.287 154.328 36.966 Amount Albumin Human 5% 250 ml 500 In Empty Bag 1 bag @ 250 mls/hr IVPB Q1HR PRN Rx#: [id number] Insulin Regular 100 unit 14.948 9.377 8.585 In Sodium Chloride 0.9% 100 ml @ Per Protocol IV .Q0M JAYLEN Rx#:[id number] Milrinone-D5w Pmx 20 mg 10.2 In Dextrose/Water 1 100ml .bag @ 0.2 MCG/KG/MIN 5. 106 mls/hr IV .[id number] JAYLEN Rx#:[id number] Norepinephrine 4 mg In 5.999 110.401 Sodium Chloride 0.9% 250 ml @ 0.02 MCG/KG/MIN 6. 485 mls/hr IV .Q24H JAYLEN Rx#:[id number] Sodium Chloride 0.9% 1, 100 000 ml @ 50 mls/hr IV . Q20H JAYLEN Rx#:[id number] propofoL 1,000 mg In 115.140 34.550 28.381 Empty Bag 1 bag @ Titrate IV .Q0M JAYLEN Rx#: [id number] Blood Product 310 Rc As-1 Unit 310 [id number] Output: Chest Tube Drainage 610 370 190 Lt pleural 170 160 120 Mediastinal 440 210 70 Urine 580 255 110 Other: Voiding Method Indwelling Catheter Indwelling Catheter Indwelling Catheter Weight 95 kg ABP, PAP, CO, CI - Last 8 Hours Arterial Blood Pressure 102/50 Arterial Blood Pressure 108/53 Arterial Blood Pressure 116/57 Arterial Blood Pressure 117/47 Arterial Blood Pressure 97/47 Arterial Blood Pressure 103/44 Arterial Blood Pressure 101/48 Arterial Blood Pressure 114/47 Arterial Blood Pressure 118/48 Arterial Blood Pressure 111/50 Arterial Blood Pressure 130/56 Arterial Blood Pressure 139/50 Arterial Blood Pressure 110/51 Arterial Blood Pressure 117/55 Arterial Blood Pressure 114/51 Arterial Blood Pressure 128/54 Arterial Blood Pressure 126/59 Arterial Blood Pressure 104/51 Arterial Blood Pressure 101/48 Arterial Blood Pressure 94/46 Arterial Blood Pressure 100/48 Arterial Blood Pressure 94/45 Arterial Blood Pressure 104/50 Arterial Blood Pressure 131/53 Arterial Blood Pressure 90/51 Arterial Blood Pressure 82/48 Arterial Blood Pressure 92/45 Arterial Blood Pressure 81/46 Arterial Blood Pressure 98/54 Arterial Blood Pressure 116/57 Arterial Blood Pressure 109/50 Pulmonary Artery Pressure 50/25 Pulmonary Artery Pressure 47/24 Pulmonary Artery Pressure 50/27 Pulmonary Artery Pressure 47/25 Pulmonary Artery Pressure 42/21 Pulmonary Artery Pressure 43/21 Pulmonary Artery Pressure 43/22 Pulmonary Artery Pressure 45/21 Pulmonary Artery Pressure 44/21 Pulmonary Artery Pressure 50/25 Pulmonary Artery Pressure 50/25 Pulmonary Artery Pressure 44/21 Pulmonary Artery Pressure 46/22 Pulmonary Artery Pressure 46/24 Pulmonary Artery Pressure 48/23 Pulmonary Artery Pressure 50/27 Pulmonary Artery Pressure 44/22 Pulmonary Artery Pressure 42/20 Pulmonary Artery Pressure 43/21 Pulmonary Artery Pressure 45/21 Pulmonary Artery Pressure 45/21 Pulmonary Artery Pressure 44/21 Pulmonary Artery Pressure 51/25 Pulmonary Artery Pressure 47/21 Pulmonary Artery Pressure 48/22 Pulmonary Artery Pressure 44/20 Pulmonary Artery Pressure 44/24 Pulmonary Artery Pressure 44/26 Pulmonary Artery Pressure 44/22 Cardiac Output 5.1 Cardiac Output 4.6 Cardiac Output 4.9 Cardiac Output 4.8 Cardiac Output 4.9 Cardiac Output 5 Cardiac Output 5.8 Cardiac Output 6 Cardiac Output 4.8 Cardiac Index 2.6 Cardiac Index 2.3 Cardiac Index 2.5 Cardiac Index 2.4 Cardiac Index 2.5 Cardiac Index 2.5 Cardiac Index 2.9 Cardiac Index 3 Cardiac Index 2.4 Results CBC & Chem 7: 02/16/24 05:00 02/16/24 05:00 Labs: Abnormal Lab Results - Last 24 Hours (Table) 02/12/24 02/15/24 02/15/24 Range/Units 12:05 08:48 10:10 RBC (4.30-5.90) m/uL Hgb (13.0-17.5) gm/dL Hct (39.0-53.0) % RDW (11.5-15.5) % Plt Count (150-450) k/uL Lymphocytes # (1.0-4.8) k/uL PT (10.0-12.5) sec INR (<1.2) ABG pH (7.35-7.45) ABG pCO2 (35-45) mmHg ABG pO2 229 H 297 H (83-108) mmHg ABG HCO3 (21-25) mmol/L ABG O2 Saturation 99.4 H >99.4 H (94-97) % ABG Hematocrit 28 L 29 L (34.0-46.0) % ABG Potassium 3.1 L 3.3 L (3.4-4.5) mmol/L ABG Ionized Calcium (4.5-5.3) mg/dL ABG Glucose (75-99) mg/dL Hemoglobin 9.1 L 9.6 L (13.0-17.5) gm/dL Chloride (98-107) mmol/L Carbon Dioxide (22-30) mmol/L BUN (9-20) mg/dL Creatinine (0.66-1.25) mg/dL Glucose (74-99) mg/dL POC Glucose (mg/dL) (70-110) mg/dL Magnesium (1.6-2.3) mg/dL Total Bilirubin (0.2-1.3) mg/dL AST (17-59) U/L ALT (4-49) U/L Total Protein (6.3-8.2) g/dL Albumin (3.5-5.0) g/dL Arterial Blood Potassium 3.1 L 3.3 L (3.4-4.5) mmol/L Arterial Blood Glucose (75-99) mg/dL Crossmatch See Detail 02/15/24 02/15/24 02/15/24 Range/Units 10:40 11:11 12:04 RBC (4.30-5.90) m/uL Hgb (13.0-17.5) gm/dL Hct (39.0-53.0) % RDW (11.5-15.5) % Plt Count (150-450) k/uL Lymphocytes # (1.0-4.8) k/uL PT (10.0-12.5) sec INR (<1.2) ABG pH 7.51 H 7.46 H (7.35-7.45) ABG pCO2 33 L (35-45) mmHg ABG pO2 >420 H >420 H 229 H (83-108) mmHg ABG HCO3 26 H (21-25) mmol/L ABG O2 Saturation >99.4 H >99.4 H 99.4 H (94-97) % ABG Hematocrit 27 L 26 L 25 L (34.0-46.0) % ABG Potassium 3.3 L (3.4-4.5) mmol/L ABG Ionized Calcium 3.8 L 4.2 L 4.2 L (4.5-5.3) mg/dL ABG Glucose 121 H 102 H 120 H (75-99) mg/dL Hemoglobin 8.7 L 8.3 L 8.3 L (13.0-17.5) gm/dL Chloride (98-107) mmol/L Carbon Dioxide (22-30) mmol/L BUN (9-20) mg/dL Creatinine (0.66-1.25) mg/dL Glucose (74-99) mg/dL POC Glucose (mg/dL) (70-110) mg/dL Magnesium (1.6-2.3) mg/dL Total Bilirubin (0.2-1.3) mg/dL AST (17-59) U/L ALT (4-49) U/L Total Protein (6.3-8.2) g/dL Albumin (3.5-5.0) g/dL Arterial Blood Potassium 3.3 L (3.4-4.5) mmol/L Arterial Blood Glucose 121 H 102 H 120 H (75-99) mg/dL Crossmatch 02/15/24 02/15/24 02/15/24 Range/Units 12:16 12:37 13:20 RBC (4.30-5.90) m/uL Hgb (13.0-17.5) gm/dL Hct (39.0-53.0) % RDW (11.5-15.5) % Plt Count (150-450) k/uL Lymphocytes # (1.0-4.8) k/uL PT (10.0-12.5) sec INR (<1.2) ABG pH 7.23 L 7.32 L (7.35-7.45) ABG pCO2 60 H 34 L (35-45) mmHg ABG pO2 >420 H >420 H 327 H (83-108) mmHg ABG HCO3 (21-25) mmol/L ABG O2 Saturation 99.4 H 99.4 H >99.4 H (94-97) % ABG Hematocrit 25 L 26 L 23 L (34.0-46.0) % ABG Potassium (3.4-4.5) mmol/L ABG Ionized Calcium 4.2 L 4.1 L (4.5-5.3) mg/dL ABG Glucose 126 H 150 H 140 H (75-99) mg/dL Hemoglobin 8.2 L 8.5 L 7.4 L (13.0-17.5) gm/dL Chloride (98-107) mmol/L Carbon Dioxide (22-30) mmol/L BUN (9-20) mg/dL Creatinine (0.66-1.25) mg/dL Glucose (74-99) mg/dL POC Glucose (mg/dL) (70-110) mg/dL Magnesium (1.6-2.3) mg/dL Total Bilirubin (0.2-1.3) mg/dL AST (17-59) U/L ALT (4-49) U/L Total Protein (6.3-8.2) g/dL Albumin (3.5-5.0) g/dL Arterial Blood Potassium (3.4-4.5) mmol/L Arterial Blood Glucose 126 H 150 H 140 H (75-99) mg/dL Crossmatch 02/15/24 02/15/24 02/15/24 Range/Units 14:02 14:45 14:46 RBC 3.25 L (4.30-5.90) m/uL Hgb 9.7 L (13.0-17.5) gm/dL Hct 29.1 L (39.0-53.0) % RDW 17.5 H (11.5-15.5) % Plt Count (150-450) k/uL Lymphocytes # 0.8 L (1.0-4.8) k/uL PT (10.0-12.5) sec INR (<1.2) ABG pH 7.32 L (7.35-7.45) ABG pCO2 (35-45) mmHg ABG pO2 >420 H (83-108) mmHg ABG HCO3 20 L (21-25) mmol/L ABG O2 Saturation 99.4 H (94-97) % ABG Hematocrit 27 L (34.0-46.0) % ABG Potassium (3.4-4.5) mmol/L ABG Ionized Calcium 3.9 L (4.5-5.3) mg/dL ABG Glucose 154 H (75-99) mg/dL Hemoglobin 8.8 L (13.0-17.5) gm/dL Chloride (98-107) mmol/L Carbon Dioxide (22-30) mmol/L BUN (9-20) mg/dL Creatinine (0.66-1.25) mg/dL Glucose (74-99) mg/dL POC Glucose (mg/dL) 173 H (70-110) mg/dL Magnesium (1.6-2.3) mg/dL Total Bilirubin (0.2-1.3) mg/dL AST (17-59) U/L ALT (4-49) U/L Total Protein (6.3-8.2) g/dL Albumin (3.5-5.0) g/dL Arterial Blood Potassium (3.4-4.5) mmol/L Arterial Blood Glucose 154 H (75-99) mg/dL Crossmatch 02/15/24 02/15/24 02/15/24 Range/Units 14:46 14:46 15:13 RBC (4.30-5.90) m/uL Hgb (13.0-17.5) gm/dL Hct (39.0-53.0) % RDW (11.5-15.5) % Plt Count (150-450) k/uL Lymphocytes # (1.0-4.8) k/uL PT 13.6 H (10.0-12.5) sec INR 1.3 H (<1.2) ABG pH (7.35-7.45) ABG pCO2 (35-45) mmHg ABG pO2 204 H (83-108) mmHg ABG HCO3 (21-25) mmol/L ABG O2 Saturation 100.5 H (94-97) % ABG Hematocrit (34.0-46.0) % ABG Potassium (3.4-4.5) mmol/L ABG Ionized Calcium (4.5-5.3) mg/dL ABG Glucose (75-99) mg/dL Hemoglobin (13.0-17.5) gm/dL Chloride 111 H (98-107) mmol/L Carbon Dioxide (22-30) mmol/L BUN 33 H (9-20) mg/dL Creatinine 1.56 H (0.66-1.25) mg/dL Glucose 149 H (74-99) mg/dL POC Glucose (mg/dL) (70-110) mg/dL Magnesium 4.0 H (1.6-2.3) mg/dL Total Bilirubin 2.2 H (0.2-1.3) mg/dL AST 194 H (17-59) U/L ALT 95 H (4-49) U/L Total Protein 4.5 L (6.3-8.2) g/dL Albumin 2.8 L (3.5-5.0) g/dL Arterial Blood Potassium (3.4-4.5) mmol/L Arterial Blood Glucose (75-99) mg/dL Crossmatch 02/15/24 02/15/24 02/15/24 Range/Units 15:44 16:32 17:15 RBC 2.42 L (4.30-5.90) m/uL Hgb 7.1 L D (13.0-17.5) gm/dL Hct 21.7 L (39.0-53.0) % RDW 17.6 H (11.5-15.5) % Plt Count 127 L (150-450) k/uL Lymphocytes # 0.6 L (1.0-4.8) k/uL PT (10.0-12.5) sec INR (<1.2) ABG pH (7.35-7.45) ABG pCO2 (35-45) mmHg ABG pO2 (83-108) mmHg ABG HCO3 (21-25) mmol/L ABG O2 Saturation (94-97) % ABG Hematocrit (34.0-46.0) % ABG Potassium (3.4-4.5) mmol/L ABG Ionized Calcium (4.5-5.3) mg/dL ABG Glucose (75-99) mg/dL Hemoglobin (13.0-17.5) gm/dL Chloride (98-107) mmol/L Carbon Dioxide (22-30) mmol/L BUN (9-20) mg/dL Creatinine (0.66-1.25) mg/dL Glucose (74-99) mg/dL POC Glucose (mg/dL) 170 H 160 H (70-110) mg/dL Magnesium (1.6-2.3) mg/dL Total Bilirubin (0.2-1.3) mg/dL AST (17-59) U/L ALT (4-49) U/L Total Protein (6.3-8.2) g/dL Albumin (3.5-5.0) g/dL Arterial Blood Potassium (3.4-4.5) mmol/L Arterial Blood Glucose (75-99) mg/dL Crossmatch 02/15/24 02/15/24 02/15/24 Range/Units 17:20 18:49 19:41 RBC (4.30-5.90) m/uL Hgb (13.0-17.5) gm/dL Hct (39.0-53.0) % RDW (11.5-15.5) % Plt Count (150-450) k/uL Lymphocytes # (1.0-4.8) k/uL PT (10.0-12.5) sec INR (<1.2) ABG pH (7.35-7.45) ABG pCO2 (35-45) mmHg ABG pO2 (83-108) mmHg ABG HCO3 (21-25) mmol/L ABG O2 Saturation (94-97) % ABG Hematocrit (34.0-46.0) % ABG Potassium (3.4-4.5) mmol/L ABG Ionized Calcium (4.5-5.3) mg/dL ABG Glucose (75-99) mg/dL Hemoglobin (13.0-17.5) gm/dL Chloride (98-107) mmol/L Carbon Dioxide (22-30) mmol/L BUN (9-20) mg/dL Creatinine (0.66-1.25) mg/dL Glucose (74-99) mg/dL POC Glucose (mg/dL) 152 H 131 H 112 H (70-110) mg/dL Magnesium (1.6-2.3) mg/dL Total Bilirubin (0.2-1.3) mg/dL AST (17-59) U/L ALT (4-49) U/L Total Protein (6.3-8.2) g/dL Albumin (3.5-5.0) g/dL Arterial Blood Potassium (3.4-4.5) mmol/L Arterial Blood Glucose (75-99) mg/dL Crossmatch 02/15/24 02/15/24 02/15/24 Range/Units 20:30 20:59 21:44 RBC 2.80 L 2.73 L (4.30-5.90) m/uL Hgb 8.5 L 8.0 L (13.0-17.5) gm/dL Hct 25.6 L 24.8 L (39.0-53.0) % RDW 17.5 H 17.2 H (11.5-15.5) % Plt Count 113 L 127 L (150-450) k/uL Lymphocytes # 0.6 L 0.4 L (1.0-4.8) k/uL PT (10.0-12.5) sec INR (<1.2) ABG pH (7.35-7.45) ABG pCO2 (35-45) mmHg ABG pO2 (83-108) mmHg ABG HCO3 (21-25) mmol/L ABG O2 Saturation (94-97) % ABG Hematocrit (34.0-46.0) % ABG Potassium (3.4-4.5) mmol/L ABG Ionized Calcium (4.5-5.3) mg/dL ABG Glucose (75-99) mg/dL Hemoglobin (13.0-17.5) gm/dL Chloride (98-107) mmol/L Carbon Dioxide (22-30) mmol/L BUN (9-20) mg/dL Creatinine (0.66-1.25) mg/dL Glucose (74-99) mg/dL POC Glucose (mg/dL) 137 H (70-110) mg/dL Magnesium (1.6-2.3) mg/dL Total Bilirubin (0.2-1.3) mg/dL AST (17-59) U/L ALT (4-49) U/L Total Protein (6.3-8.2) g/dL Albumin (3.5-5.0) g/dL Arterial Blood Potassium (3.4-4.5) mmol/L Arterial Blood Glucose (75-99) mg/dL Crossmatch 02/15/24 02/15/24 02/15/24 Range/Units 21:55 22:52 23:53 RBC (4.30-5.90) m/uL Hgb (13.0-17.5) gm/dL Hct (39.0-53.0) % RDW (11.5-15.5) % Plt Count (150-450) k/uL Lymphocytes # (1.0-4.8) k/uL PT (10.0-12.5) sec INR (<1.2) ABG pH (7.35-7.45) ABG pCO2 (35-45) mmHg ABG pO2 (83-108) mmHg ABG HCO3 (21-25) mmol/L ABG O2 Saturation (94-97) % ABG Hematocrit (34.0-46.0) % ABG Potassium (3.4-4.5) mmol/L ABG Ionized Calcium (4.5-5.3) mg/dL ABG Glucose (75-99) mg/dL Hemoglobin (13.0-17.5) gm/dL Chloride (98-107) mmol/L Carbon Dioxide (22-30) mmol/L BUN (9-20) mg/dL Creatinine (0.66-1.25) mg/dL Glucose (74-99) mg/dL POC Glucose (mg/dL) 154 H 154 H 160 H (70-110) mg/dL Magnesium (1.6-2.3) mg/dL Total Bilirubin (0.2-1.3) mg/dL AST (17-59) U/L ALT (4-49) U/L Total Protein (6.3-8.2) g/dL Albumin (3.5-5.0) g/dL Arterial Blood Potassium (3.4-4.5) mmol/L Arterial Blood Glucose (75-99) mg/dL Crossmatch 02/16/24 02/16/24 02/16/24 Range/Units 00:52 02:56 03:56 RBC (4.30-5.90) m/uL Hgb (13.0-17.5) gm/dL Hct (39.0-53.0) % RDW (11.5-15.5) % Plt Count (150-450) k/uL Lymphocytes # (1.0-4.8) k/uL PT (10.0-12.5) sec INR (<1.2) ABG pH (7.35-7.45) ABG pCO2 (35-45) mmHg ABG pO2 (83-108) mmHg ABG HCO3 (21-25) mmol/L ABG O2 Saturation (94-97) % ABG Hematocrit (34.0-46.0) % ABG Potassium (3.4-4.5) mmol/L ABG Ionized Calcium (4.5-5.3) mg/dL ABG Glucose (75-99) mg/dL Hemoglobin (13.0-17.5) gm/dL Chloride (98-107) mmol/L Carbon Dioxide (22-30) mmol/L BUN (9-20) mg/dL Creatinine (0.66-1.25) mg/dL Glucose (74-99) mg/dL POC Glucose (mg/dL) 140 H 131 H 136 H (70-110) mg/dL Magnesium (1.6-2.3) mg/dL Total Bilirubin (0.2-1.3) mg/dL AST (17-59) U/L ALT (4-49) U/L Total Protein (6.3-8.2) g/dL Albumin (3.5-5.0) g/dL Arterial Blood Potassium (3.4-4.5) mmol/L Arterial Blood Glucose (75-99) mg/dL Crossmatch 02/16/24 02/16/24 02/16/24 Range/Units 05:00 05:00 05:01 RBC 2.54 L (4.30-5.90) m/uL Hgb 7.5 L (13.0-17.5) gm/dL Hct 23.2 L (39.0-53.0) % RDW 17.2 H (11.5-15.5) % Plt Count 116 L (150-450) k/uL Lymphocytes # 0.6 L (1.0-4.8) k/uL PT (10.0-12.5) sec INR (<1.2) ABG pH (7.35-7.45) ABG pCO2 (35-45) mmHg ABG pO2 (83-108) mmHg ABG HCO3 (21-25) mmol/L ABG O2 Saturation (94-97) % ABG Hematocrit (34.0-46.0) % ABG Potassium (3.4-4.5) mmol/L ABG Ionized Calcium (4.5-5.3) mg/dL ABG Glucose (75-99) mg/dL Hemoglobin (13.0-17.5) gm/dL Chloride 112 H (98-107) mmol/L Carbon Dioxide 18 L (22-30) mmol/L BUN 30 H (9-20) mg/dL Creatinine 1.84 H (0.66-1.25) mg/dL Glucose 117 H (74-99) mg/dL POC Glucose (mg/dL) 133 H (70-110) mg/dL Magnesium 3.1 H (1.6-2.3) mg/dL Total Bilirubin (0.2-1.3) mg/dL AST 157 H (17-59) U/L ALT 67 H (4-49) U/L Total Protein 4.7 L (6.3-8.2) g/dL Albumin 3.3 L (3.5-5.0) g/dL Arterial Blood Potassium (3.4-4.5) mmol/L Arterial Blood Glucose (75-99) mg/dL Crossmatch 02/16/24 02/16/24 02/16/24 Range/Units 05:11 05:53 06:52 RBC (4.30-5.90) m/uL Hgb (13.0-17.5) gm/dL Hct (39.0-53.0) % RDW (11.5-15.5) % Plt Count (150-450) k/uL Lymphocytes # (1.0-4.8) k/uL PT (10.0-12.5) sec INR (<1.2) ABG pH 7.33 L (7.35-7.45) ABG pCO2 (35-45) mmHg ABG pO2 (83-108) mmHg ABG HCO3 19 L (21-25) mmol/L ABG O2 Saturation 98.9 H (94-97) % ABG Hematocrit (34.0-46.0) % ABG Potassium (3.4-4.5) mmol/L ABG Ionized Calcium (4.5-5.3) mg/dL ABG Glucose (75-99) mg/dL Hemoglobin (13.0-17.5) gm/dL Chloride (98-107) mmol/L Carbon Dioxide (22-30) mmol/L BUN (9-20) mg/dL Creatinine (0.66-1.25) mg/dL Glucose (74-99) mg/dL POC Glucose (mg/dL) 126 H 123 H (70-110) mg/dL Magnesium (1.6-2.3) mg/dL Total Bilirubin (0.2-1.3) mg/dL AST (17-59) U/L ALT (4-49) U/L Total Protein (6.3-8.2) g/dL Albumin (3.5-5.0) g/dL Arterial Blood Potassium (3.4-4.5) mmol/L Arterial Blood Glucose (75-99) mg/dL Crossmatch 02/16/24 02/16/24 Range/Units 07:58 09:00 RBC (4.30-5.90) m/uL Hgb (13.0-17.5) gm/dL Hct (39.0-53.0) % RDW (11.5-15.5) % Plt Count (150-450) k/uL Lymphocytes # (1.0-4.8) k/uL PT (10.0-12.5) sec INR (<1.2) ABG pH (7.35-7.45) ABG pCO2 (35-45) mmHg ABG pO2 (83-108) mmHg ABG HCO3 (21-25) mmol/L ABG O2 Saturation (94-97) % ABG Hematocrit (34.0-46.0) % ABG Potassium (3.4-4.5) mmol/L ABG Ionized Calcium (4.5-5.3) mg/dL ABG Glucose (75-99) mg/dL Hemoglobin (13.0-17.5) gm/dL Chloride (98-107) mmol/L Carbon Dioxide (22-30) mmol/L BUN (9-20) mg/dL Creatinine (0.66-1.25) mg/dL Glucose (74-99) mg/dL POC Glucose (mg/dL) 121 H 120 H (70-110) mg/dL Magnesium (1.6-2.3) mg/dL Total Bilirubin (0.2-1.3) mg/dL AST (17-59) U/L ALT (4-49) U/L Total Protein (6.3-8.2) g/dL Albumin (3.5-5.0) g/dL Arterial Blood Potassium (3.4-4.5) mmol/L Arterial Blood Glucose (75-99) mg/dL Crossmatch
[2024-02-16] MEDS: DARBEPOETIN ALFA 40 MCG/0.4 ML SYRINGE SQ SCH (13:56)
[2024-02-16] MEDS: guaiFENesin 600 MG TABLET.ER PO SCH (13:56)
[2024-02-16 14:08] LABS: Glucose,Whole Blood 129 mg/dL (70-110)
[2024-02-16 15:11] LABS: Glucose,Whole Blood 126 mg/dL (70-110)
[2024-02-16 17:26] LABS: Glucose,Whole Blood 179 mg/dL (70-110)
[2024-02-16 18:08] LABS: Glucose,Whole Blood 219 mg/dL (70-110)
[2024-02-16 18:55] LABS: Glucose,Whole Blood 178 mg/dL (70-110)
[2024-02-16] MEDS: MIDODRINE 5 MG TAB PO SCH (19:06)
[2024-02-16 20:13] LABS: Glucose,Whole Blood 143 mg/dL (70-110)
[2024-02-16] MEDS: SENNOSIDES-DOCUSATE SODIUM 1 EACH TAB PO SCH (20:17)
[2024-02-16 21:00] LABS: Glucose,Whole Blood 133 mg/dL (70-110)
[2024-02-16] MEDS: ACETYLCYSTEINE 800 MG/4 ML VIAL INHALATION SCH (21:02)
[2024-02-16] MEDS: SYMBICORT 160-4.5 MCG INHALER INHALATION SCH (21:03)
[2024-02-16 21:59] LABS: Glucose,Whole Blood 118 mg/dL (70-110)
[2024-02-16 23:06] LABS: Glucose,Whole Blood 112 mg/dL (70-110)
[2024-02-17 00:04] LABS: Glucose,Whole Blood 135 mg/dL (70-110)
[2024-02-17 01:02] LABS: Glucose,Whole Blood 137 mg/dL (70-110)
[2024-02-17 02:01] LABS: Glucose,Whole Blood 136 mg/dL (70-110)
[2024-02-17 03:03] LABS: Glucose,Whole Blood 125 mg/dL (70-110)
[2024-02-17 04:00] LABS: Glucose,Whole Blood 116 mg/dL (70-110)
[2024-02-17 05:00] LABS: Glucose,Whole Blood 118 mg/dL (70-110)
[2024-02-17 05:07] LABS: Anisocytosis Slight; Basophils % (A) 0 %; Eosinophils % (A) 0 %; HCT 23.3 % (39.0-53.0); HGB 7.3 gm/dL (13.0-17.5); Hypochromasia Marked; Lymphocytes # (A) 0.9 k/uL (1.0-4.8); Lymphocytes % (A) 9 %; MCH 29.1 pg (25.0-35.0); MCHC 31.5 g/dL (31.0-37.0); MCV 92.4 fL (80.0-100.0); Mean Platelet Volume 10.9; Monocytes # (A) 0.4 k/uL (0-1.0); Monocytes % (A) 4 %; Neutrophils # (A) 8.6 k/uL (1.3-7.7); Neutrophils % (A) 86 %; Platelet Count 116 k/uL (150-450); Poikilocytosis Slight; RBC 2.53 m/uL (4.30-5.90); RDW 17.6 % (11.5-15.5)
[2024-02-17 05:22] LABS: Ionized Calcium 4.8 mg/dL (4.5-5.3)
[2024-02-17 05:30] LABS: ALT 25 U/L (4-49); AST 88 U/L (17-59); African American GFR (CKD) 44 (>60 ml/min/1.73 sqM); Albumin 3.5 g/dL (3.5-5.0); Alkaline Phosphatase 49 U/L (38-126); Anion Gap 6 mmol/L; Blood Urea Nitrogen 26 mg/dL (9-20); Calcium 8.3 mg/dL (8.4-10.2); Carbon Dioxide 22 mmol/L (22-30); Chloride 112 mmol/L (98-107); Glucose 104 mg/dL (74-99); Non-African American GFR(CKD) 38 (>60 ml/min/1.73 sqM); Potassium 3.9 mmol/L (3.5-5.1); Sodium 140 mmol/L (137-145); Total Bilirubin 1.2 mg/dL (0.2-1.3); Total Protein 5.1 g/dL (6.3-8.2)
[2024-02-17 06:01] LABS: Glucose,Whole Blood 115 mg/dL (70-110)
[2024-02-17] MEDS: POTASSIUM CHLORIDE ER 20 MEQ TAB.ER PO SCH (06:05)
[2024-02-17] MEDS: PANTOPRAZOLE 40 MG TABLET PO SCH (06:05)
[2024-02-17 07:00] LABS: Glucose,Whole Blood 118 mg/dL (70-110)
--- NOTE | 2024-02-17 08:26 | XR ---
EXAMINATION TYPE: XR chest 1V portable DATE OF EXAM: 02/17/2024 5:38 AM CLINICAL INDICATION: Male, 78 years old with history of Post Operative Cardiac Surgery; COMPARISON: Chest radiographs from 02/16/2024 TECHNIQUE: XR chest 1V portable Frontal view of the chest. FINDINGS: EXAMINATION TYPE: XR chest 1V portable DATE OF EXAM: 02/17/2024 5:38 AM CLINICAL INDICATION: Male, 78 years old with history of Post Operative Cardiac Surgery; COMPARISON: Chest radiograph from one day prior. TECHNIQUE: XR chest 1V portable Frontal view of the chest. FINDINGS: Lungs/Pleura: There is no evidence of pleural effusion, focal consolidation, or pneumothorax. Pulmonary vascularity: Unremarkable. Heart/mediastinum: Cardiomediastinal silhouette is enlarged. Musculoskeletal: No acute osseous pathology. Other findings: None Lines/Tubes: Interval removal of the endotracheal tube. Interval removal of the enteric tube, Left thoracotomy tube is present without evidence of pneumothorax. There is a [place]-Julius catheter sheath in place. Left thoracotomy tube is present without evidence of pneumothorax. IMPRESSION: Surgical changes with mild pulmonary edema. No significant change from prior..
[2024-02-17 08:31] LABS: Glucose,Whole Blood 247 mg/dL (70-110)
[2024-02-17] MEDS ORDERED: hydrALAZINE HCL 10 MG TAB PO SCH (09:00)
[2024-02-17 09:52] LABS: Glucose,Whole Blood 134 mg/dL (70-110)
--- NOTE | 2024-02-17 10:17 | P.PN ---
Subjective Patient is seen in follow-up for chronic kidney disease. Extubated. Sitting up in chair. On nasal cannula. Denies chest pain or shortness of breath. Renal function stable. Vital signs are stable. General: No acute distress. HEENT: Head exam is unremarkable. On nasal cannula. LUNGS: No audible rhonchi or wheezes. Chest tubes noted. HEART: Rate and Rhythm are regular. ABDOMEN: Nontender. EXTREMITITES: No edema. Objective - Vital Signs Vital signs: Vital Signs Temp 99.7 F H 02/17/24 08:00 Pulse 61 02/17/24 10:00 Resp 21 02/17/24 10:00 BP 126/74 02/17/24 09:00 Pulse Ox 98 02/17/24 10:00 FiO2 40 02/16/24 10:06 Intake & Output 02/16/24 02/17/24 02/17/24 18:59 06:59 18:59 Intake Total 2275.612 847.041 310.422 Output Total 955 770 95 Balance 1320.612 77.041 215.422 Weight 95 kg 94.3 kg Intake: IV 1418 827 137 Albumin Human 5% 250 ml 500 In Empty Bag 1 bag @ 250 mls/hr IVPB Q1HR PRN Rx#: [id number] CO/CI 160 60 20 Pressure Bags 108 117 27 Sodium Chloride 0.9% 1, 600 650 90 000 ml @ 30 mls/hr IV . Q24H JAYLEN Rx#:[id number] ceFAZolin 2 gm In Sodium 50 Chloride 0.9% 50 ml @ 100 mls/hr IVPB Q8HR JAYLEN Rx# :[id number] Intake, IV Titration 157.612 20.041 53.422 Amount Insulin Regular 100 unit 29.231 20.041 14.191 In Sodium Chloride 0.9% 100 ml @ Per Protocol IV .Q0M JAYLEN Rx#:[id number] Milrinone-D5w Pmx 20 mg 100 39.231 In Dextrose/Water 1 100ml .bag @ 0.2 MCG/KG/MIN 5. 106 mls/hr IV .[id number] JAYLEN Rx#:[id number] propofoL 1,000 mg In 28.381 Empty Bag 1 bag @ Titrate IV .Q0M JAYLEN Rx#: [id number] Oral 700 120 Output: Chest Tube Drainage 500 290 0 Lt pleural 320 200 0 Mediastinal 180 90 0 Urine 455 480 95 Other: Voiding Method Indwelling Catheter Indwelling Catheter ABP, PAP, CO, CI - Last Documented Arterial Blood Pressure 106/40 Pulmonary Artery Pressure 33/10 Cardiac Output 3.6 Cardiac Index 1.8 - Labs CBC & Chem 7: 02/17/24 05:00 02/17/24 05:00 Labs: Abnormal Lab Results - Last 24 Hours (Table) 02/16/24 02/16/24 02/16/24 Range/Units 10:37 11:07 12:00 RBC (4.30-5.90) m/uL Hgb (13.0-17.5) gm/dL Hct (39.0-53.0) % RDW (11.5-15.5) % Plt Count (150-450) k/uL Neutrophils # (1.3-7.7) k/uL Lymphocytes # (1.0-4.8) k/uL ABG O2 Saturation 98.5 H (94-97) % Chloride (98-107) mmol/L BUN (9-20) mg/dL Creatinine (0.66-1.25) mg/dL Glucose (74-99) mg/dL POC Glucose (mg/dL) 114 H 128 H (70-110) mg/dL Calcium (8.4-10.2) mg/dL AST (17-59) U/L Total Protein (6.3-8.2) g/dL 02/16/24 02/16/24 02/16/24 Range/Units 13:02 14:06 15:09 RBC (4.30-5.90) m/uL Hgb (13.0-17.5) gm/dL Hct (39.0-53.0) % RDW (11.5-15.5) % Plt Count (150-450) k/uL Neutrophils # (1.3-7.7) k/uL Lymphocytes # (1.0-4.8) k/uL ABG O2 Saturation (94-97) % Chloride (98-107) mmol/L BUN (9-20) mg/dL Creatinine (0.66-1.25) mg/dL Glucose (74-99) mg/dL POC Glucose (mg/dL) 129 H 129 H 126 H (70-110) mg/dL Calcium (8.4-10.2) mg/dL AST (17-59) U/L Total Protein (6.3-8.2) g/dL 02/16/24 02/16/24 02/16/24 Range/Units 17:25 18:07 18:54 RBC (4.30-5.90) m/uL Hgb (13.0-17.5) gm/dL Hct (39.0-53.0) % RDW (11.5-15.5) % Plt Count (150-450) k/uL Neutrophils # (1.3-7.7) k/uL Lymphocytes # (1.0-4.8) k/uL ABG O2 Saturation (94-97) % Chloride (98-107) mmol/L BUN (9-20) mg/dL Creatinine (0.66-1.25) mg/dL Glucose (74-99) mg/dL POC Glucose (mg/dL) 179 H 219 H 178 H (70-110) mg/dL Calcium (8.4-10.2) mg/dL AST (17-59) U/L Total Protein (6.3-8.2) g/dL 02/16/24 02/16/24 02/16/24 Range/Units 20:12 20:58 21:57 RBC (4.30-5.90) m/uL Hgb (13.0-17.5) gm/dL Hct (39.0-53.0) % RDW (11.5-15.5) % Plt Count (150-450) k/uL Neutrophils # (1.3-7.7) k/uL Lymphocytes # (1.0-4.8) k/uL ABG O2 Saturation (94-97) % Chloride (98-107) mmol/L BUN (9-20) mg/dL Creatinine (0.66-1.25) mg/dL Glucose (74-99) mg/dL POC Glucose (mg/dL) 143 H 133 H 118 H (70-110) mg/dL Calcium (8.4-10.2) mg/dL AST (17-59) U/L Total Protein (6.3-8.2) g/dL 02/16/24 02/17/24 02/17/24 Range/Units 23:04 00:03 01:01 RBC (4.30-5.90) m/uL Hgb (13.0-17.5) gm/dL Hct (39.0-53.0) % RDW (11.5-15.5) % Plt Count (150-450) k/uL Neutrophils # (1.3-7.7) k/uL Lymphocytes # (1.0-4.8) k/uL ABG O2 Saturation (94-97) % Chloride (98-107) mmol/L BUN (9-20) mg/dL Creatinine (0.66-1.25) mg/dL Glucose (74-99) mg/dL POC Glucose (mg/dL) 112 H 135 H 137 H (70-110) mg/dL Calcium (8.4-10.2) mg/dL AST (17-59) U/L Total Protein (6.3-8.2) g/dL 02/17/24 02/17/24 02/17/24 Range/Units 01:59 03:02 03:58 RBC (4.30-5.90) m/uL Hgb (13.0-17.5) gm/dL Hct (39.0-53.0) % RDW (11.5-15.5) % Plt Count (150-450) k/uL Neutrophils # (1.3-7.7) k/uL Lymphocytes # (1.0-4.8) k/uL ABG O2 Saturation (94-97) % Chloride (98-107) mmol/L BUN (9-20) mg/dL Creatinine (0.66-1.25) mg/dL Glucose (74-99) mg/dL POC Glucose (mg/dL) 136 H 125 H 116 H (70-110) mg/dL Calcium (8.4-10.2) mg/dL AST (17-59) U/L Total Protein (6.3-8.2) g/dL 02/17/24 02/17/24 02/17/24 Range/Units 04:59 05:00 05:00 RBC 2.53 L (4.30-5.90) m/uL Hgb 7.3 L (13.0-17.5) gm/dL Hct 23.3 L (39.0-53.0) % RDW 17.6 H (11.5-15.5) % Plt Count 116 L (150-450) k/uL Neutrophils # 8.6 H (1.3-7.7) k/uL Lymphocytes # 0.9 L (1.0-4.8) k/uL ABG O2 Saturation (94-97) % Chloride 112 H (98-107) mmol/L BUN 26 H (9-20) mg/dL Creatinine 1.68 H (0.66-1.25) mg/dL Glucose 104 H (74-99) mg/dL POC Glucose (mg/dL) 118 H (70-110) mg/dL Calcium 8.3 L (8.4-10.2) mg/dL AST 88 H (17-59) U/L Total Protein 5.1 L (6.3-8.2) g/dL 02/17/24 02/17/24 02/17/24 Range/Units 05:59 06:59 08:29 RBC (4.30-5.90) m/uL Hgb (13.0-17.5) gm/dL Hct (39.0-53.0) % RDW (11.5-15.5) % Plt Count (150-450) k/uL Neutrophils # (1.3-7.7) k/uL Lymphocytes # (1.0-4.8) k/uL ABG O2 Saturation (94-97) % Chloride (98-107) mmol/L BUN (9-20) mg/dL Creatinine (0.66-1.25) mg/dL Glucose (74-99) mg/dL POC Glucose (mg/dL) 115 H 118 H 247 H (70-110) mg/dL Calcium (8.4-10.2) mg/dL AST (17-59) U/L Total Protein (6.3-8.2) g/dL 02/17/24 Range/Units 09:51 RBC (4.30-5.90) m/uL Hgb (13.0-17.5) gm/dL Hct (39.0-53.0) % RDW (11.5-15.5) % Plt Count (150-450) k/uL Neutrophils # (1.3-7.7) k/uL Lymphocytes # (1.0-4.8) k/uL ABG O2 Saturation (94-97) % Chloride (98-107) mmol/L BUN (9-20) mg/dL Creatinine (0.66-1.25) mg/dL Glucose (74-99) mg/dL POC Glucose (mg/dL) 134 H (70-110) mg/dL Calcium (8.4-10.2) mg/dL AST (17-59) U/L Total Protein (6.3-8.2) g/dL Assessment and Plan Plan: Assessment: 1. Chronic kidney disease stage IIIb secondary to diabetic kidney disease with baseline creatinine 1.5-2. GFR stable. 2. Coronary artery disease status post CABG x 3 and mitral valve repair February 15, 2024. 3. Diabetes mellitus. 4. Anemia of chronic kidney disease with component of acute blood loss post CABG. on Aranesp. 5. Metabolic acidosis secondary to chronic kidney disease and IV fluids. Improved. 6. Chronic systolic CHF. Plan: Maintain gentle IV hydration. Continue to monitor renal function and urine output.
--- NOTE | 2024-02-17 10:28 | P.PN ---
Subjective Progress Note Date: 02/17/24 Principal diagnosis: Severe mitral valve regurgitation, acute on chronic diastolic congestive heart failure, coronary artery disease and persistent paroxysmal atrial fibrillation. Past medical history significant for anemia without any evidence of acute GI bleed status post upper and lower endoscopy, chronic kidney disease stage III- IV, hypertension, diabetes mellitus type 2, obesity with a BMI of 31.8 kg/m, prostate cancer status post 45 radiation treatments several years ago, frequent diarrhea and inability to hold his bowel movements controlled with Imodium on an outpatient basis, hard of hearing, and remote history of nicotine dependence in which she quit smoking 45 years ago. POD #2 Coronary artery bypass grafting x 3 with left internal mammary artery to the left anterior sending coronary artery, sequential saphenous vein graft to first and second obtuse marginal coronary arteries, endovascular vein harvest left leg, mitral valve repair with 28 mm annular flex band, percutaneous placement of intra-aortic balloon pump via right common femoral artery, modified Vazquez-Maze with complete left-sided lesion set using radiofrequency and cryoablation both epicardial and intracardiac, and ligation of the left atrial appendage with 2 layer suture closure. Postoperative acute blood loss anemia, expected given cardiopulmonary bypass, hemodilution and preoperative history of anemia. The patient was seen and examined in follow-up today February 17, 2024 at his bedside in the intensive care unit. The patient was successfully extubated at 10:51 a.m. yesterday 02/16/2024. The patient is currently sitting up to the bedside chair, is awake, alert, oriented x 3 and is in no acute apparent distress. He denies any complaints of pain or shortness of breath at this time, although is complaining of a cough with inability to cough up sputum. Oxygen saturations are 98% on 2 L nasal cannula and he is achieving 750 to 1000 mL on his incentive spirometry. His intra-aortic balloon pump was removed yesterday without incident. Primacor drip continues infusing at 0.2 mcg/kg/min. Bedside telemetry is showing a DDD paced rhythm with a heart rate of 80 bpm. Underlying rhythm is asystole. Right IJ cordis and [place]-Julius catheter remains in place with current hemodynamic showing a cardiac output of 6.4, cardiac index 3.2, PA pressures 42/11 and CVP 6 mmHg. Mediastinal and left pleural chest tubes remain in place to low continuous wall suction -20 cm H2O. No air leak is present. Mediastinal chest tubes drained 50 mL of thin serosanguineous drainage in the last 8 hours and 280 mL in the last 24 hours. Left pleural chest tube drained 170 mL of thin serosanguineous drainage in the last 8 hours and 550 mL in the last 24 hours. Chest x-ray and laboratory results were reviewed. Objective - Vital Signs Vital signs: Vital Signs Temp 98.8 F 02/15/24 20:21 Pulse 80 02/17/24 07:00 Resp 18 02/17/24 07:00 BP 140/66 02/17/24 06:45 Pulse Ox 96 02/17/24 07:00 FiO2 40 02/16/24 10:06 Intake & Output 02/16/24 02/17/24 02/17/24 18:59 06:59 18:59 Intake Total 2275.612 847.041 35.827 Output Total 955 770 Balance 1320.612 77.041 35.827 Weight 95 kg 94.3 kg Intake: IV 1418 827 Albumin Human 5% 250 ml 500 In Empty Bag 1 bag @ 250 mls/hr IVPB Q1HR PRN Rx#: [id number] CO/CI 160 60 Pressure Bags 108 117 Sodium Chloride 0.9% 1, 600 650 000 ml @ 50 mls/hr IV . Q20H JAYLEN Rx#:[id number] ceFAZolin 2 gm In Sodium 50 Chloride 0.9% 50 ml @ 100 mls/hr IVPB Q8HR JAYLEN Rx# :[id number] Intake, IV Titration 157.612 20.041 35.827 Amount Insulin Regular 100 unit 29.231 20.041 In Sodium Chloride 0.9% 100 ml @ Per Protocol IV .Q0M JAYLEN Rx#:[id number] Milrinone-D5w Pmx 20 mg 100 35.827 In Dextrose/Water 1 100ml .bag @ 0.2 MCG/KG/MIN 5. 106 mls/hr IV .[id number] JAYLEN Rx#:[id number] propofoL 1,000 mg In 28.381 Empty Bag 1 bag @ Titrate IV .Q0M JAYLEN Rx#: [id number] Oral 700 Output: Chest Tube Drainage 500 290 Lt pleural 320 200 Mediastinal 180 90 Urine 455 480 Other: Voiding Method Indwelling Catheter Indwelling Catheter ABP, PAP, CO, CI - Last Documented Arterial Blood Pressure 127/47 Pulmonary Artery Pressure 39/12 Cardiac Output 6.4 Cardiac Index 3.2 - Exam CONSTITUTIONAL: Sitting up to the bedside chair in the intensive care unit, appears comfortable, cooperative, no apparent acute distress. HEENT: Neck is supple, no JVD, no lymphadenopathy. Right IJ Cordis and [place]- Julius catheter in place and functioning. RESPIRATORY: Lungs sounds essentially clear throughout with few scattered rhonchi, diminished to his bilateral bases. Currently on 2 L nasal cannula with oxygen saturations 98%. Able to achieve 750-1000 mL on his incentive spirometry. Strong cough. CARDIOVASCULAR: Regular rhythm and rate. S1 and S2 present, negative for S3, gallop or murmur. Bedside telemetry is showing DDD paced rhythm heart rate 80 bpm, underlying rhythm asystole. Sternum is stable. Palpable peripheral pulses bilaterally. No calf pain or tenderness noted. Heart hugger in place, demonstrating appropriate use. Knee-high RAYMUNDO hose and sequential compression devices in place to his bilateral lower extremities. GASTROINTESTINAL: Abdomen soft, nontender, nondistended. Active bowel sounds present 4 quadrants. Tolerating clear liquid diet. No guarding or rigidity. GENITOURINARY: Jones present draining clear, yellow urine. Urine output 290 mL in the last 8 hours. INTEGUMENTARY: Skin is warm and dry with no evidence of clubbing or cyanosis. Midline sternal incision clean dry and well approximated, covered with dry intact dressing. Left lower extremity EVH sites well approximated without redness or drainage. NEUROLOGIC: No focal deficits. MUSKULOSKELETAL: Able to move all extremities, strength equal bilaterally, generalized weakness. PSYCHIATRIC: Alert and oriented to person place and time, appropriate affect, intact judgment and insight. INVASIVE LINES AND TUBES: Mediastinal/left pleural chest tubes present and connected to low continuous wall suction, no air leaks present. Mediastinal tube with 50 mL of thin serosanguineous drainage overnight, 280 mL output in the last 24 hours. Left pleural chest tube with 170 mL of thin serosanguineous drainage overnight, 550 mL output in the last 24 hours. Atrial and ventricular epicardial pacemaker wires present, connected to generator, DDD mode of 80 bpm. Right internal jugular [place]/Cordis, right radial arterial line present. Last CO 6.4, CI 3.2, PA 42/11, and CVP 6 mmHg. - Allied health notes Allied health notes reviewed: nursing - Labs CBC & Chem 7: 02/17/24 05:00 02/17/24 05:00 Labs: Abnormal Lab Results - Last 24 Hours (Table) 02/16/24 02/16/24 02/16/24 Range/Units 07:58 09:00 09:57 RBC (4.30-5.90) m/uL Hgb (13.0-17.5) gm/dL Hct (39.0-53.0) % RDW (11.5-15.5) % Plt Count (150-450) k/uL Neutrophils # (1.3-7.7) k/uL Lymphocytes # (1.0-4.8) k/uL ABG O2 Saturation (94-97) % Chloride (98-107) mmol/L BUN (9-20) mg/dL Creatinine (0.66-1.25) mg/dL Glucose (74-99) mg/dL POC Glucose (mg/dL) 121 H 120 H 119 H (70-110) mg/dL Calcium (8.4-10.2) mg/dL AST (17-59) U/L Total Protein (6.3-8.2) g/dL 02/16/24 02/16/24 02/16/24 Range/Units 10:37 11:07 12:00 RBC (4.30-5.90) m/uL Hgb (13.0-17.5) gm/dL Hct (39.0-53.0) % RDW (11.5-15.5) % Plt Count (150-450) k/uL Neutrophils # (1.3-7.7) k/uL Lymphocytes # (1.0-4.8) k/uL ABG O2 Saturation 98.5 H (94-97) % Chloride (98-107) mmol/L BUN (9-20) mg/dL Creatinine (0.66-1.25) mg/dL Glucose (74-99) mg/dL POC Glucose (mg/dL) 114 H 128 H (70-110) mg/dL Calcium (8.4-10.2) mg/dL AST (17-59) U/L Total Protein (6.3-8.2) g/dL 02/16/24 02/16/24 02/16/24 Range/Units 13:02 14:06 15:09 RBC (4.30-5.90) m/uL Hgb (13.0-17.5) gm/dL Hct (39.0-53.0) % RDW (11.5-15.5) % Plt Count (150-450) k/uL Neutrophils # (1.3-7.7) k/uL Lymphocytes # (1.0-4.8) k/uL ABG O2 Saturation (94-97) % Chloride (98-107) mmol/L BUN (9-20) mg/dL Creatinine (0.66-1.25) mg/dL Glucose (74-99) mg/dL POC Glucose (mg/dL) 129 H 129 H 126 H (70-110) mg/dL Calcium (8.4-10.2) mg/dL AST (17-59) U/L Total Protein (6.3-8.2) g/dL 02/16/24 02/16/24 02/16/24 Range/Units 17:25 18:07 18:54 RBC (4.30-5.90) m/uL Hgb (13.0-17.5) gm/dL Hct (39.0-53.0) % RDW (11.5-15.5) % Plt Count (150-450) k/uL Neutrophils # (1.3-7.7) k/uL Lymphocytes # (1.0-4.8) k/uL ABG O2 Saturation (94-97) % Chloride (98-107) mmol/L BUN (9-20) mg/dL Creatinine (0.66-1.25) mg/dL Glucose (74-99) mg/dL POC Glucose (mg/dL) 179 H 219 H 178 H (70-110) mg/dL Calcium (8.4-10.2) mg/dL AST (17-59) U/L Total Protein (6.3-8.2) g/dL 02/16/24 02/16/24 02/16/24 Range/Units 20:12 20:58 21:57 RBC (4.30-5.90) m/uL Hgb (13.0-17.5) gm/dL Hct (39.0-53.0) % RDW (11.5-15.5) % Plt Count (150-450) k/uL Neutrophils # (1.3-7.7) k/uL Lymphocytes # (1.0-4.8) k/uL ABG O2 Saturation (94-97) % Chloride (98-107) mmol/L BUN (9-20) mg/dL Creatinine (0.66-1.25) mg/dL Glucose (74-99) mg/dL POC Glucose (mg/dL) 143 H 133 H 118 H (70-110) mg/dL Calcium (8.4-10.2) mg/dL AST (17-59) U/L Total Protein (6.3-8.2) g/dL 02/16/24 02/17/24 02/17/24 Range/Units 23:04 00:03 01:01 RBC (4.30-5.90) m/uL Hgb (13.0-17.5) gm/dL Hct (39.0-53.0) % RDW (11.5-15.5) % Plt Count (150-450) k/uL Neutrophils # (1.3-7.7) k/uL Lymphocytes # (1.0-4.8) k/uL ABG O2 Saturation (94-97) % Chloride (98-107) mmol/L BUN (9-20) mg/dL Creatinine (0.66-1.25) mg/dL Glucose (74-99) mg/dL POC Glucose (mg/dL) 112 H 135 H 137 H (70-110) mg/dL Calcium (8.4-10.2) mg/dL AST (17-59) U/L Total Protein (6.3-8.2) g/dL 02/17/24 02/17/24 02/17/24 Range/Units 01:59 03:02 03:58 RBC (4.30-5.90) m/uL Hgb (13.0-17.5) gm/dL Hct (39.0-53.0) % RDW (11.5-15.5) % Plt Count (150-450) k/uL Neutrophils # (1.3-7.7) k/uL Lymphocytes # (1.0-4.8) k/uL ABG O2 Saturation (94-97) % Chloride (98-107) mmol/L BUN (9-20) mg/dL Creatinine (0.66-1.25) mg/dL Glucose (74-99) mg/dL POC Glucose (mg/dL) 136 H 125 H 116 H (70-110) mg/dL Calcium (8.4-10.2) mg/dL AST (17-59) U/L Total Protein (6.3-8.2) g/dL 02/17/24 02/17/24 02/17/24 Range/Units 04:59 05:00 05:00 RBC 2.53 L (4.30-5.90) m/uL Hgb 7.3 L (13.0-17.5) gm/dL Hct 23.3 L (39.0-53.0) % RDW 17.6 H (11.5-15.5) % Plt Count 116 L (150-450) k/uL Neutrophils # 8.6 H (1.3-7.7) k/uL Lymphocytes # 0.9 L (1.0-4.8) k/uL ABG O2 Saturation (94-97) % Chloride 112 H (98-107) mmol/L BUN 26 H (9-20) mg/dL Creatinine 1.68 H (0.66-1.25) mg/dL Glucose 104 H (74-99) mg/dL POC Glucose (mg/dL) 118 H (70-110) mg/dL Calcium 8.3 L (8.4-10.2) mg/dL AST 88 H (17-59) U/L Total Protein 5.1 L (6.3-8.2) g/dL 02/17/24 02/17/24 Range/Units 05:59 06:59 RBC (4.30-5.90) m/uL Hgb (13.0-17.5) gm/dL Hct (39.0-53.0) % RDW (11.5-15.5) % Plt Count (150-450) k/uL Neutrophils # (1.3-7.7) k/uL Lymphocytes # (1.0-4.8) k/uL ABG O2 Saturation (94-97) % Chloride (98-107) mmol/L BUN (9-20) mg/dL Creatinine (0.66-1.25) mg/dL Glucose (74-99) mg/dL POC Glucose (mg/dL) 115 H 118 H (70-110) mg/dL Calcium (8.4-10.2) mg/dL AST (17-59) U/L Total Protein (6.3-8.2) g/dL - Imaging and Cardiology Chest x-ray: report reviewed, image reviewed Assessment and Plan Assessment: Severe mitral valve regurgitation, status post mitral valve repair with 28 mm annular flex band Coronary artery disease status post coronary artery bypass grafting x 3 with left internal mammary artery to the left anterior sending coronary artery Persistent paroxysmal atrial fibrillation status post modified Vazquez-Maze with complete left-sided lesion set using radiofrequency and cryoablation both epicardial and intracardiac, and ligation of the left atrial appendage with 2 layer suture closure Acute on chronic diastolic congestive heart failure, status post percutaneous placement of intra-aortic balloon pump via right common femoral artery Chronic kidney disease stage III-IV, with a preoperative creatinine of 2.24 Chronic anemia without any evidence of acute GI bleed, status post recent upper and lower endoscopy Hypertension Diabetes mellitus type 2 with a preoperative hemoglobin A1c of 9.3% Obesity with a BMI of 31.8 kg/m Prostate cancer status post 45 radiation treatment several years ago Frequent diarrhea and inability to hold his bowel movements controlled with Imodium on an outpatient basis Remote history of nicotine dependence quit smoking 45 years ago Postoperative acute blood loss anemia, expected given cardiopulmonary bypass, hemodilution and his preoperative anemia Elevated transaminitis enzymes, AST 88, ALT 25 Plan: Continue to maximize medical therapy with aspirin, statin, and Plavix. Hold metoprolol tartrate at this time, as underlying rhythm is asystole, currently being DDD paced 80 bpm. Discontinue primacor. Once Primacor drip is weaned off we will remove his [place]- Julius catheter, keep his right IJ Cordis to continuous CVP monitoring. Will monitor daily labs and chest x-rays. Electrolyte replacement per protocol. Encourage incentive spirometry use 10 times every hour while awake. Bronchodilators per pulmonology/critical care management. Patient was started on oral Mucinex, Mucomyst nebulizer and Symbicort yesterday due to the patient's nonproductive cough. Increase activity, ambulate as tolerated. PT/OT/cardiac rehab following. Patient walks with a walker at home. Pain control per current medication regimen. No Toradol at this time, avoid nephrotoxic agents Nephrology consult noted and appreciated, patient has a history of chronic kidney disease stage IIIb. Home dose of Nephrocaps restarted. Insulin management per internal medicine. Patient should remain on IV insulin for another 24 hours, then may transition to subcutaneous insulin per protocol. Preoperative hemoglobin A1c 9.3%. Continue chest tubes for another 24 hours. Strict accurate output monitoring. Continue Jones catheter for another 24 hours, continue to record strict accurate intake and output. Daily weights. Hydralazine 25 mg p.o. TID started for afterload reduction. Continue atrial and ventricular epicardial pacemaker wires, keep epicardial pa cemaker wires connected to bedside backup pacemaker generator on a DDD mode of 80 bpm. More recommendations to follow based on patient's clinical course. Time with Patient: Greater than 30
[2024-02-17 10:56] LABS: Glucose,Whole Blood 123 mg/dL (70-110)
--- NOTE | 2024-02-17 11:22 | P.PN ---
Subjective Progress Note Date: 02/17/24 Patient is postop day 2 of CABG with POSADA to LAD, venous graft to OM1 and OM 2. Underwent a maze procedure and closure of the left atrial appendage. He appears to be pacing on his own and hemodynamically stable. Patient complains of discomfort at the incision sites and difficulty taking a deep breath. ROS performed. Pertinent positives and negatives as documented above, all other systems negative. Objective - Vital Signs Vital signs: Vital Signs Temp 98.8 F 02/15/24 20:21 Pulse 82 02/17/24 08:02 Resp 18 02/17/24 07:00 BP 140/66 02/17/24 06:45 Pulse Ox 95 02/17/24 07:47 FiO2 40 02/16/24 10:06 Intake & Output 02/16/24 02/17/24 02/17/24 18:59 06:59 18:59 Intake Total 2275.612 847.041 35.827 Output Total 955 770 Balance 1320.612 77.041 35.827 Weight 95 kg 94.3 kg Intake: IV 1418 827 Albumin Human 5% 250 ml 500 In Empty Bag 1 bag @ 250 mls/hr IVPB Q1HR PRN Rx#: [id number] CO/CI 160 60 Pressure Bags 108 117 Sodium Chloride 0.9% 1, 600 650 000 ml @ 50 mls/hr IV . Q20H JAYLEN Rx#:[id number] ceFAZolin 2 gm In Sodium 50 Chloride 0.9% 50 ml @ 100 mls/hr IVPB Q8HR JAYLEN Rx# :[id number] Intake, IV Titration 157.612 20.041 35.827 Amount Insulin Regular 100 unit 29.231 20.041 In Sodium Chloride 0.9% 100 ml @ Per Protocol IV .Q0M JAYLEN Rx#:[id number] Milrinone-D5w Pmx 20 mg 100 35.827 In Dextrose/Water 1 100ml .bag @ 0.2 MCG/KG/MIN 5. 106 mls/hr IV .[id number] JAYLEN Rx#:[id number] propofoL 1,000 mg In 28.381 Empty Bag 1 bag @ Titrate IV .Q0M JAYLEN Rx#: [id number] Oral 700 Output: Chest Tube Drainage 500 290 Lt pleural 320 200 Mediastinal 180 90 Urine 455 480 Other: Voiding Method Indwelling Catheter Indwelling Catheter ABP, PAP, CO, CI - Last Documented Arterial Blood Pressure 127/47 Pulmonary Artery Pressure 39/12 Cardiac Output 6.4 Cardiac Index 3.2 - Exam Vital signs are stable. General: Mild respiratory distress. HEENT: Head exam is unremarkable. Lungs: Rhonchi present with inhalation and exhalation. Heart: Rate and rhythm are regular. Abdomen: Nontender. Extremities: No edema present. - Labs CBC & Chem 7: 02/17/24 05:00 02/17/24 05:00 Labs: Abnormal Lab Results - Last 24 Hours (Table) 02/16/24 02/16/24 02/16/24 Range/Units 09:00 09:57 10:37 RBC (4.30-5.90) m/uL Hgb (13.0-17.5) gm/dL Hct (39.0-53.0) % RDW (11.5-15.5) % Plt Count (150-450) k/uL Neutrophils # (1.3-7.7) k/uL Lymphocytes # (1.0-4.8) k/uL ABG O2 Saturation 98.5 H (94-97) % Chloride (98-107) mmol/L BUN (9-20) mg/dL Creatinine (0.66-1.25) mg/dL Glucose (74-99) mg/dL POC Glucose (mg/dL) 120 H 119 H (70-110) mg/dL Calcium (8.4-10.2) mg/dL AST (17-59) U/L Total Protein (6.3-8.2) g/dL 02/16/24 02/16/24 02/16/24 Range/Units 11:07 12:00 13:02 RBC (4.30-5.90) m/uL Hgb (13.0-17.5) gm/dL Hct (39.0-53.0) % RDW (11.5-15.5) % Plt Count (150-450) k/uL Neutrophils # (1.3-7.7) k/uL Lymphocytes # (1.0-4.8) k/uL ABG O2 Saturation (94-97) % Chloride (98-107) mmol/L BUN (9-20) mg/dL Creatinine (0.66-1.25) mg/dL Glucose (74-99) mg/dL POC Glucose (mg/dL) 114 H 128 H 129 H (70-110) mg/dL Calcium (8.4-10.2) mg/dL AST (17-59) U/L Total Protein (6.3-8.2) g/dL 02/16/24 02/16/24 02/16/24 Range/Units 14:06 15:09 17:25 RBC (4.30-5.90) m/uL Hgb (13.0-17.5) gm/dL Hct (39.0-53.0) % RDW (11.5-15.5) % Plt Count (150-450) k/uL Neutrophils # (1.3-7.7) k/uL Lymphocytes # (1.0-4.8) k/uL ABG O2 Saturation (94-97) % Chloride (98-107) mmol/L BUN (9-20) mg/dL Creatinine (0.66-1.25) mg/dL Glucose (74-99) mg/dL POC Glucose (mg/dL) 129 H 126 H 179 H (70-110) mg/dL Calcium (8.4-10.2) mg/dL AST (17-59) U/L Total Protein (6.3-8.2) g/dL 02/16/24 02/16/24 02/16/24 Range/Units 18:07 18:54 20:12 RBC (4.30-5.90) m/uL Hgb (13.0-17.5) gm/dL Hct (39.0-53.0) % RDW (11.5-15.5) % Plt Count (150-450) k/uL Neutrophils # (1.3-7.7) k/uL Lymphocytes # (1.0-4.8) k/uL ABG O2 Saturation (94-97) % Chloride (98-107) mmol/L BUN (9-20) mg/dL Creatinine (0.66-1.25) mg/dL Glucose (74-99) mg/dL POC Glucose (mg/dL) 219 H 178 H 143 H (70-110) mg/dL Calcium (8.4-10.2) mg/dL AST (17-59) U/L Total Protein (6.3-8.2) g/dL 02/16/24 02/16/24 02/16/24 Range/Units 20:58 21:57 23:04 RBC (4.30-5.90) m/uL Hgb (13.0-17.5) gm/dL Hct (39.0-53.0) % RDW (11.5-15.5) % Plt Count (150-450) k/uL Neutrophils # (1.3-7.7) k/uL Lymphocytes # (1.0-4.8) k/uL ABG O2 Saturation (94-97) % Chloride (98-107) mmol/L BUN (9-20) mg/dL Creatinine (0.66-1.25) mg/dL Glucose (74-99) mg/dL POC Glucose (mg/dL) 133 H 118 H 112 H (70-110) mg/dL Calcium (8.4-10.2) mg/dL AST (17-59) U/L Total Protein (6.3-8.2) g/dL 02/17/24 02/17/24 02/17/24 Range/Units 00:03 01:01 01:59 RBC (4.30-5.90) m/uL Hgb (13.0-17.5) gm/dL Hct (39.0-53.0) % RDW (11.5-15.5) % Plt Count (150-450) k/uL Neutrophils # (1.3-7.7) k/uL Lymphocytes # (1.0-4.8) k/uL ABG O2 Saturation (94-97) % Chloride (98-107) mmol/L BUN (9-20) mg/dL Creatinine (0.66-1.25) mg/dL Glucose (74-99) mg/dL POC Glucose (mg/dL) 135 H 137 H 136 H (70-110) mg/dL Calcium (8.4-10.2) mg/dL AST (17-59) U/L Total Protein (6.3-8.2) g/dL 02/17/24 02/17/24 02/17/24 Range/Units 03:02 03:58 04:59 RBC (4.30-5.90) m/uL Hgb (13.0-17.5) gm/dL Hct (39.0-53.0) % RDW (11.5-15.5) % Plt Count (150-450) k/uL Neutrophils # (1.3-7.7) k/uL Lymphocytes # (1.0-4.8) k/uL ABG O2 Saturation (94-97) % Chloride (98-107) mmol/L BUN (9-20) mg/dL Creatinine (0.66-1.25) mg/dL Glucose (74-99) mg/dL POC Glucose (mg/dL) 125 H 116 H 118 H (70-110) mg/dL Calcium (8.4-10.2) mg/dL AST (17-59) U/L Total Protein (6.3-8.2) g/dL 02/17/24 02/17/24 02/17/24 Range/Units 05:00 05:00 05:59 RBC 2.53 L (4.30-5.90) m/uL Hgb 7.3 L (13.0-17.5) gm/dL Hct 23.3 L (39.0-53.0) % RDW 17.6 H (11.5-15.5) % Plt Count 116 L (150-450) k/uL Neutrophils # 8.6 H (1.3-7.7) k/uL Lymphocytes # 0.9 L (1.0-4.8) k/uL ABG O2 Saturation (94-97) % Chloride 112 H (98-107) mmol/L BUN 26 H (9-20) mg/dL Creatinine 1.68 H (0.66-1.25) mg/dL Glucose 104 H (74-99) mg/dL POC Glucose (mg/dL) 115 H (70-110) mg/dL Calcium 8.3 L (8.4-10.2) mg/dL AST 88 H (17-59) U/L Total Protein 5.1 L (6.3-8.2) g/dL 02/17/24 Range/Units 06:59 RBC (4.30-5.90) m/uL Hgb (13.0-17.5) gm/dL Hct (39.0-53.0) % RDW (11.5-15.5) % Plt Count (150-450) k/uL Neutrophils # (1.3-7.7) k/uL Lymphocytes # (1.0-4.8) k/uL ABG O2 Saturation (94-97) % Chloride (98-107) mmol/L BUN (9-20) mg/dL Creatinine (0.66-1.25) mg/dL Glucose (74-99) mg/dL POC Glucose (mg/dL) 118 H (70-110) mg/dL Calcium (8.4-10.2) mg/dL AST (17-59) U/L Total Protein (6.3-8.2) g/dL Assessment and Plan Assessment: 1. Coronary artery disease, s/p CABG, postop day 2. 2. Mitral valve regurgitation, s/p mitral valve repair. 3. Persistent A-fib, s/p maze procedure and closure of the left atrial appendage. Plan: Continue incentive spirometry. Continue Plavix 75 mg daily. Continue hydralazine 25 mg every 8 hours.
--- NOTE | 2024-02-17 11:24 | P.PN ---
Subjective Progress Note Date: 02/17/24 Patient is a-year-old white male with past medical history significant for prostate cancer, diabetes mellitus, hypertension, angina, atrial fibrillation normally anticoagulated on Eliquis. Of note, patient had a recent hospitalization 12/24/2023 where he did have an extensive cardiac workup. He was found to have multivessel coronary artery disease and severe mitral regurgitation. Cardiac cath done on 12/28/2023 demonstrates 80% mid LAD stenosis, 90% mid OM2 disease, and moderate diffuse disease in the PDA. Cardiothoracic team was asked to evaluate this patient up for potential open heart surgery. Echocardiogram done the same admission showed a left ventricular ejection fraction estimated at 25 to 30%, as well as, moderate to severe mitral valve regurgitation. Patient underwent open heart surgery yesterday 02/15/2024 including coronary artery bypass grafting x 3 with POSADA to LAD, sequential saphenous vein graft to first and second obtuse marginal coronary arteries, mitral valve repair with 28 mm annular flex band, modified Vazquez-Maze with completed left sided lesion set using RF and cryoablation, ligation of left atrial appendage, and percutaneous placement of intra-aortic balloon pump. Patient was transferred to the intensive care unit postoperatively in critical condition. Or exit time documented at 1430. He did have a 2 L EBL. Status post 4 units PRBC, 2 FFP, 2 platelets, 1.5 L albumin, and 1200 mL Cell Saver. He remains intubated to mechanical ventilator. Postoperative chest x-ray shows mild pulmonary congestion and cardiomegaly, no pneumothorax. Endotracheal tube 2.6 cm above the clark. NG tube courses below the diaphragm. Shelby-Julius catheter with tip projecting over the spine, mediastinal and left thoracotomy tubes in place. Postoperative ABG PaO2 204, pCO2 40, pH 7.36. Current ventilator settings including assist-control, respiratory rate 14, tidal volume 500, FiO2 50%, PEEP of 5. Peak pressure 22, no significant airway secretions. Patient is lightly sedated on propofol which is currently infusing at 50 mcg/kg/min. He does awaken to verbal stimuli, follows all commands, moves all 4 extremities equally. Reportedly has not been extubated at this point, due to increased vasopressor requirements. He is on a one-to-one balloon pump with augmented pressure of 87 mean pressure 65. CI 2.4/CO 4.8. Pulmonary artery pressure 47/22. CVP 14. Milrinone infusing at 0.2 mcg/kg/min. Norepinephrine infusing at 0.04 mcg/kg/min. Normal saline also infusing at 50 mL/h. Insulin per protocol. He does have an epicardial pacemaker wires, currently DDI settings at a rate of 80 bpm. Patient does have 2 mediastinal chest tubes hooked to an atrium with 470 mL of serosanguineous output at this point in time. Left pleural chest tube has a total of 180 mL of serosanguineous output. These are both to negative 20 cm H2O suction. No obvious air leak. Urinary catheter is in place, draining adequate urine output in the order of 30 to 40 mL/h. Most recent CBC: WBC count 5.9, hemoglobin 8, hematocrit 24.8, platelets 127. Coagulation profile including PT 13.6, INR 1.3, APTT 28.6, fibrinogen 215. CMP: Sodium 141, potassium 3.9, chloride 111, serum bicarb 23, BUN 33, creatinine 1.56, glucose 149. Ionized calcium 5. AST 194, ALT 95, ALP 56. Plan is to pursue extubation later this morning. The patient is seen today February 17, 2024 in follow-up in the intensive care unit. Postoperative day #2. He is currently sitting up in chair at the [facility]. Awake and alert in no acute distress. Chest x-ray continues to show some atelectasis and small effusions bilaterally. He is a good encouraged regarding the increased use of the incentive spirometer. Cardiac output 6.1. Cardiac index 3.1. He is on normal saline at 30 mL/h. Primacor was discontinued this morning. He remains on insulin drip at 6 units/h. Mediastinal and left chest tubes remain in place. White count 10.0. Hemoglobin 7.3. Platelets 116. Sodium 140. Potassium 3.9. Bicarb 22. BUN 26. Creatinine 1.68. Glucose 123. He remains on DuoNeb inhalations, Symbicort, Mucinex. Heparin for DVT prophylaxis. Objective - Vital Signs Vital signs: Vital Signs Temp 99.7 F H 02/17/24 08:00 Pulse 61 02/17/24 10:00 Resp 21 02/17/24 10:00 BP 126/74 02/17/24 09:00 Pulse Ox 98 02/17/24 10:00 FiO2 40 08/27/24 10:06 Intake & Output 02/16/24 02/17/24 02/17/24 18:59 06:59 18:59 Intake Total 2275.612 847.041 351.610 Output Total 955 770 115 Balance 1320.612 77.041 236.610 Weight 95 kg 94.3 kg Intake: IV 1418 827 176 Albumin Human 5% 250 ml 500 In Empty Bag 1 bag @ 250 mls/hr IVPB Q1HR PRN Rx#: [id number] CO/CI 160 60 20 Pressure Bags 108 117 36 Sodium Chloride 0.9% 1, 600 650 120 000 ml @ 30 mls/hr IV . Q24H JYALEN Rx#:[id number] ceFAZolin 2 gm In Sodium 50 Chloride 0.9% 50 ml @ 100 mls/hr IVPB Q8HR JAYLEN Rx# :[id number] Intake, IV Titration 157.612 20.041 55.610 Amount Insulin Regular 100 unit 29.231 20.041 16.379 In Sodium Chloride 0.9% 100 ml @ Per Protocol IV .Q0M JAYLEN Rx#:[id number] Milrinone-D5w Pmx 20 mg 100 39.231 In Dextrose/Water 1 100ml .bag @ 0.2 MCG/KG/MIN 5. 106 mls/hr IV .[id number] JAYLEN Rx#:[id number] propofoL 1,000 mg In 28.381 Empty Bag 1 bag @ Titrate IV .Q0M JAYLEN Rx#: [id number] Oral 700 120 Output: Chest Tube Drainage 500 290 0 Lt pleural 320 200 0 Mediastinal 180 90 0 Urine 455 480 115 Other: Voiding Method Indwelling Catheter Indwelling Catheter ABP, PAP, CO, CI - Last Documented Arterial Blood Pressure 106/40 Pulmonary Artery Pressure 33/10 Cardiac Output 3.6 Cardiac Index 1.8 - Exam GENERAL EXAM: Awake, alert 78-year-old male patient on 3 L nasal cannula, fairly comfortable in no acute distress. HEAD: Normocephalic and atraumatic EYES: Normal reaction of pupils, equal size. NOSE: Clear with pink turbinates. THROAT: No erythema or exudates. NECK: No masses, no JVD. Right IJ introducer sheath CHEST: Midstern incision dressed with postoperative dressing clean, dry, intact. Epicardial pacemaker noted. Mediastinal chest tubes and left pleural chest tubes in place. LUNGS: Equal air entry with no crackles, wheeze, rhonchi or dullness. CVS: S1 and S2 normal with no audible murmur, regular rhythm. ABDOMEN: No hepatosplenomegaly, active bowel sounds, no guarding or rigidity. SPINE: No scoliosis or deformity SKIN: No rashes CENTRAL NERVOUS SYSTEM: No focal deficits, tone is normal in all 4 extremities. EXTREMITIES: Distal pulses intact. Legs wrapped with Clive bandages. - Labs CBC & Chem 7: 02/17/24 05:00 02/17/24 05:00 Labs: Abnormal Lab Results - Last 24 Hours (Table) 02/16/24 02/16/24 02/16/24 Range/Units 12:00 13:02 14:06 RBC (4.30-5.90) m/uL Hgb (13.0-17.5) gm/dL Hct (39.0-53.0) % RDW (11.5-15.5) % Plt Count (150-450) k/uL Neutrophils # (1.3-7.7) k/uL Lymphocytes # (1.0-4.8) k/uL Chloride (98-107) mmol/L BUN (9-20) mg/dL Creatinine (0.66-1.25) mg/dL Glucose (74-99) mg/dL POC Glucose (mg/dL) 128 H 129 H 129 H (70-110) mg/dL Calcium (8.4-10.2) mg/dL AST (17-59) U/L Total Protein (6.3-8.2) g/dL 02/16/24 02/16/24 02/16/24 Range/Units 15:09 17:25 18:07 RBC (4.30-5.90) m/uL Hgb (13.0-17.5) gm/dL Hct (39.0-53.0) % RDW (11.5-15.5) % Plt Count (150-450) k/uL Neutrophils # (1.3-7.7) k/uL Lymphocytes # (1.0-4.8) k/uL Chloride (98-107) mmol/L BUN (9-20) mg/dL Creatinine (0.66-1.25) mg/dL Glucose (74-99) mg/dL POC Glucose (mg/dL) 126 H 179 H 219 H (70-110) mg/dL Calcium (8.4-10.2) mg/dL AST (17-59) U/L Total Protein (6.3-8.2) g/dL 02/16/24 02/16/24 02/16/24 Range/Units 18:54 20:12 20:58 RBC (4.30-5.90) m/uL Hgb (13.0-17.5) gm/dL Hct (39.0-53.0) % RDW (11.5-15.5) % Plt Count (150-450) k/uL Neutrophils # (1.3-7.7) k/uL Lymphocytes # (1.0-4.8) k/uL Chloride (98-107) mmol/L BUN (9-20) mg/dL Creatinine (0.66-1.25) mg/dL Glucose (74-99) mg/dL POC Glucose (mg/dL) 178 H 143 H 133 H (70-110) mg/dL Calcium (8.4-10.2) mg/dL AST (17-59) U/L Total Protein (6.3-8.2) g/dL 02/16/24 02/16/24 02/17/24 Range/Units 21:57 23:04 00:03 RBC (4.30-5.90) m/uL Hgb (13.0-17.5) gm/dL Hct (39.0-53.0) % RDW (11.5-15.5) % Plt Count (150-450) k/uL Neutrophils # (1.3-7.7) k/uL Lymphocytes # (1.0-4.8) k/uL Chloride (98-107) mmol/L BUN (9-20) mg/dL Creatinine (0.66-1.25) mg/dL Glucose (74-99) mg/dL POC Glucose (mg/dL) 118 H 112 H 135 H (70-110) mg/dL Calcium (8.4-10.2) mg/dL AST (17-59) U/L Total Protein (6.3-8.2) g/dL 02/17/24 02/17/24 02/17/24 Range/Units 01:01 01:59 03:02 RBC (4.30-5.90) m/uL Hgb (13.0-17.5) gm/dL Hct (39.0-53.0) % RDW (11.5-15.5) % Plt Count (150-450) k/uL Neutrophils # (1.3-7.7) k/uL Lymphocytes # (1.0-4.8) k/uL Chloride (98-107) mmol/L BUN (9-20) mg/dL Creatinine (0.66-1.25) mg/dL Glucose (74-99) mg/dL POC Glucose (mg/dL) 137 H 136 H 125 H (70-110) mg/dL Calcium (8.4-10.2) mg/dL AST (17-59) U/L Total Protein (6.3-8.2) g/dL 02/17/24 02/17/24 02/17/24 Range/Units 03:58 04:59 05:00 RBC 2.53 L (4.30-5.90) m/uL Hgb 7.3 L (13.0-17.5) gm/dL Hct 23.3 L (39.0-53.0) % RDW 17.6 H (11.5-15.5) % Plt Count 116 L (150-450) k/uL Neutrophils # 8.6 H (1.3-7.7) k/uL Lymphocytes # 0.9 L (1.0-4.8) k/uL Chloride (98-107) mmol/L BUN (9-20) mg/dL Creatinine (0.66-1.25) mg/dL Glucose (74-99) mg/dL POC Glucose (mg/dL) 116 H 118 H (70-110) mg/dL Calcium (8.4-10.2) mg/dL AST (17-59) U/L Total Protein (6.3-8.2) g/dL 02/17/24 02/17/24 02/17/24 Range/Units 05:00 05:59 06:59 RBC (4.30-5.90) m/uL Hgb (13.0-17.5) gm/dL Hct (39.0-53.0) % RDW (11.5-15.5) % Plt Count (150-450) k/uL Neutrophils # (1.3-7.7) k/uL Lymphocytes # (1.0-4.8) k/uL Chloride 112 H (98-107) mmol/L BUN 26 H (9-20) mg/dL Creatinine 1.68 H (0.66-1.25) mg/dL Glucose 104 H (74-99) mg/dL POC Glucose (mg/dL) 115 H 118 H (70-110) mg/dL Calcium 8.3 L (8.4-10.2) mg/dL AST 88 H (17-59) U/L Total Protein 5.1 L (6.3-8.2) g/dL 02/17/24 02/17/24 02/17/24 Range/Units 08:29 09:51 10:54 RBC (4.30-5.90) m/uL Hgb (13.0-17.5) gm/dL Hct (39.0-53.0) % RDW (11.5-15.5) % Plt Count (150-450) k/uL Neutrophils # (1.3-7.7) k/uL Lymphocytes # (1.0-4.8) k/uL Chloride (98-107) mmol/L BUN (9-20) mg/dL Creatinine (0.66-1.25) mg/dL Glucose (74-99) mg/dL POC Glucose (mg/dL) 247 H 134 H 123 H (70-110) mg/dL Calcium (8.4-10.2) mg/dL AST (17-59) U/L Total Protein (6.3-8.2) g/dL Assessment and Plan Assessment: Postoperative day #2 following coronary artery bypass grafting x 3 with POSADA to LAD, sequential saphenous vein graft to first and second obtuse marginal coronary arteries, mitral valve repair with 28 mm annular flex band, modified Vazquez-Maze with completed left sided lesion set using RF and cryoablation, ligation of left atrial appendage, and percutaneous placement of intra-aortic balloon pump. Balloon pump removed. Routine mechanical ventilator management and subsequent extubation. Today's chest x-ray shows mild pulmonary congestion and cardiomegaly, no pneumothorax. Mediastinal and left thoracotomy tubes in place. Multivessel coronary artery disease History of severe mitral valve regurgitation Acute blood loss anemia, expected outcome of surgery, Status post 4 units PRBC, 2 FFP, 2 platelets, 1.5 L albumin, and 1200 mL Cell Saver. Acute kidney injury, secondary to hypotension and ATN Diabetes mellitus type 2 History of atrial fibrillation, normally anticoagulated on Eliquis, status post synchronized cardioversion on 12/31/2023 History of hypertension Former tobacco smoker History of prostate cancer with previous radiation Plan: The patient was seen and evaluated Chest x-ray, labs and medications reviewed Currently stable on 3 L nasal cannula Encourage increased use of the incentive spirometer Titrate the FiO2 as tolerated Increase his activity as tolerated We will continue to follow I have personally seen and examined the patient, performed the documentation and the assessment and plan as written. Number of minutes spent on the visit: 10.
[2024-02-17 12:12] VITALS: BMI 31.6
[2024-02-17 12:35] LABS: Glucose,Whole Blood 129 mg/dL (70-110)
--- NOTE | 2024-02-17 13:16 | P.PN ---
Subjective Progress Note Date: 02/17/24 patient is a 78-year-old gentleman with past medical history significant for prostate cancer, diabetes mellitus, hypertension, angina, atrial fibrillation normally anticoagulated on Eliquis, recent cardiac workup showing multivessel coronary disease and severe MR who presented to the hospital for open heart surgery. Patient underwent coronary artery bypass grafting x 3 with POSADA to LAD, sequential saphenous vein graft to first and second obtuse marginal coronary arteries, mitral valve repair with 28 mm annular flex band, modified Vazquez-Maze with completed left sided lesion set using RF and cryoablation, ligation of left atrial appendage, and percutaneous placement of intra-aortic balloon pump. Patient was admitted to ICU. Internal medicine team were consulted for medical management 02/16. Patient seen and examined. Patient was extubated yesterday. Patient was on insulin drip, being transitioned to subcu insulin. Complaining of congestion. Denies any shortness of breath at rest REVIEW OF SYSTEMS: CONSTITUTIONAL: No fever, no malaise,. CARDIOVASCULAR: Complaining of pain at the site of surgery. PULMONARY: Mentioned above, GASTROINTESTINAL: No diarrhea, no nausea, no vomiting, no abdominal pain. NEUROLOGICAL: No headaches, no weakness, PHYSICAL EXAMINATION: GENERAL: The patient is alert and oriented x3, not in any acute distress. Well developed, well nourished. HEENT: Pupils are round and equally reacting to light. EOMI. No scleral icterus. No conjunctival pallor. Normocephalic, atraumatic. No pharyngeal erythema. No thyromegaly. CARDIOVASCULAR: S1 and S2 present. No murmurs, rubs, or gallops. Sternotomy surgical incision seen PULMONARY: Coarse breath sounds, no wheezing or crackles. Bilateral chest tube seen ABDOMEN: Soft, normoactive bowel sounds. No palpable organomegaly. MUSCULOSKELETAL: No joint swelling or deformity. EXTREMITIES: No cyanosis, clubbing, or pedal edema. NEUROLOGICAL: Gross neurological examination did not reveal any focal deficits. SKIN: No rashes. Assessment and plan coronary artery bypass grafting x 3 with POSADA to LAD, sequential saphenous vein graft to first and second obtuse marginal coronary arteries, mitral valve repair with 28 mm annular flex band, modified Vazquez-Maze with completed left sided lesion set using RF and cryoablation, ligation of left atrial appendage, and percutaneous placement of intra-aortic balloon pump. Postop vent dependent respiratory failure Multivessel coronary artery disease History of severe mitral valve regurgitation Acute blood loss anemia Acute kidney injury Diabetes mellitus type 2 History of atrial fibrillation History of hypertension Former tobacco smoker History of prostate cancer with previous radiation Monitor vital signs Monitor CBC Monitor CMP Continue telemetry monitoring Encourage use of incentive spirometer Aggressive bronchopulmonary hygiene Continue aspirin Plavix Continue hydralazine Continue breathing treatments DC insulin drip, start moderate intensity sliding scale insulin and Levemir 10 units daily Cardiac surgery following Critical care following Labs and medication were reviewed.. Continue same treatment. Continue with symptomatic treatment. Resume home medication. Monitor labs and vitals. DVT and GI prophylaxis. Further recommendations as per clinical course of the patient Dictation was produced using lucierna dictation software. please excuse any grammatical, word or spelling errors. Objective - Vital Signs Vital signs: Vital Signs Temp 99.7 F H 02/17/24 08:00 Pulse 64 02/17/24 11:37 Resp 25 H 02/17/24 11:00 BP 126/74 02/17/24 09:00 Pulse Ox 98 02/17/24 11:00 FiO2 40 02/16/24 10:06 Intake & Output 02/16/24 02/17/24 02/17/24 18:59 06:59 18:59 Intake Total 2275.612 847.041 351.610 Output Total 955 770 115 Balance 1320.612 77.041 236.610 Weight 95 kg 94.3 kg 94.3 kg Intake: IV 1418 827 176 Albumin Human 5% 250 ml 500 In Empty Bag 1 bag @ 250 mls/hr IVPB Q1HR PRN Rx#: [id number] CO/CI 160 60 20 Pressure Bags 108 117 36 Sodium Chloride 0.9% 1, 600 650 120 000 ml @ 30 mls/hr IV . Q24H JAYLEN Rx#:[id number] ceFAZolin 2 gm In Sodium 50 Chloride 0.9% 50 ml @ 100 mls/hr IVPB Q8HR JAYLEN Rx# :[id number] Intake, IV Titration 157.612 20.041 55.610 Amount Insulin Regular 100 unit 29.231 20.041 16.379 In Sodium Chloride 0.9% 100 ml @ Per Protocol IV .Q0M JAYLEN Rx#:[id number] Milrinone-D5w Pmx 20 mg 100 39.231 In Dextrose/Water 1 100ml .bag @ 0.2 MCG/KG/MIN 5. 106 mls/hr IV .[id number] JAYLEN Rx#:[id number] propofoL 1,000 mg In 28.381 Empty Bag 1 bag @ Titrate IV .Q0M JAYLEN Rx#: [id number] Oral 700 120 Output: Chest Tube Drainage 500 290 0 Lt pleural 320 200 0 Mediastinal 180 90 0 Urine 455 480 115 Other: Voiding Method Indwelling Catheter Indwelling Catheter ABP, PAP, CO, CI - Last Documented Arterial Blood Pressure 139/48 Pulmonary Artery Pressure 33/10 Cardiac Output 3.6 Cardiac Index 1.8 - Labs CBC & Chem 7: 02/17/24 05:00 02/17/24 05:00 Labs: Abnormal Lab Results - Last 24 Hours (Table) 02/16/24 02/16/24 02/16/24 Range/Units 14:06 15:09 17:25 RBC (4.30-5.90) m/uL Hgb (13.0-17.5) gm/dL Hct (39.0-53.0) % RDW (11.5-15.5) % Plt Count (150-450) k/uL Neutrophils # (1.3-7.7) k/uL Lymphocytes # (1.0-4.8) k/uL Chloride (98-107) mmol/L BUN (9-20) mg/dL Creatinine (0.66-1.25) mg/dL Glucose (74-99) mg/dL POC Glucose (mg/dL) 129 H 126 H 179 H (70-110) mg/dL Calcium (8.4-10.2) mg/dL AST (17-59) U/L Total Protein (6.3-8.2) g/dL 02/16/24 02/16/24 02/16/24 Range/Units 18:07 18:54 20:12 RBC (4.30-5.90) m/uL Hgb (13.0-17.5) gm/dL Hct (39.0-53.0) % RDW (11.5-15.5) % Plt Count (150-450) k/uL Neutrophils # (1.3-7.7) k/uL Lymphocytes # (1.0-4.8) k/uL Chloride (98-107) mmol/L BUN (9-20) mg/dL Creatinine (0.66-1.25) mg/dL Glucose (74-99) mg/dL POC Glucose (mg/dL) 219 H 178 H 143 H (70-110) mg/dL Calcium (8.4-10.2) mg/dL AST (17-59) U/L Total Protein (6.3-8.2) g/dL 02/16/24 02/16/24 02/16/24 Range/Units 20:58 21:57 23:04 RBC (4.30-5.90) m/uL Hgb (13.0-17.5) gm/dL Hct (39.0-53.0) % RDW (11.5-15.5) % Plt Count (150-450) k/uL Neutrophils # (1.3-7.7) k/uL Lymphocytes # (1.0-4.8) k/uL Chloride (98-107) mmol/L BUN (9-20) mg/dL Creatinine (0.66-1.25) mg/dL Glucose (74-99) mg/dL POC Glucose (mg/dL) 133 H 118 H 112 H (70-110) mg/dL Calcium (8.4-10.2) mg/dL AST (17-59) U/L Total Protein (6.3-8.2) g/dL 02/17/24 02/17/24 02/17/24 Range/Units 00:03 01:01 01:59 RBC (4.30-5.90) m/uL Hgb (13.0-17.5) gm/dL Hct (39.0-53.0) % RDW (11.5-15.5) % Plt Count (150-450) k/uL Neutrophils # (1.3-7.7) k/uL Lymphocytes # (1.0-4.8) k/uL Chloride (98-107) mmol/L BUN (9-20) mg/dL Creatinine (0.66-1.25) mg/dL Glucose (74-99) mg/dL POC Glucose (mg/dL) 135 H 137 H 136 H (70-110) mg/dL Calcium (8.4-10.2) mg/dL AST (17-59) U/L Total Protein (6.3-8.2) g/dL 02/17/24 02/17/24 02/17/24 Range/Units 03:02 03:58 04:59 RBC (4.30-5.90) m/uL Hgb (13.0-17.5) gm/dL Hct (39.0-53.0) % RDW (11.5-15.5) % Plt Count (150-450) k/uL Neutrophils # (1.3-7.7) k/uL Lymphocytes # (1.0-4.8) k/uL Chloride (98-107) mmol/L BUN (9-20) mg/dL Creatinine (0.66-1.25) mg/dL Glucose (74-99) mg/dL POC Glucose (mg/dL) 125 H 116 H 118 H (70-110) mg/dL Calcium (8.4-10.2) mg/dL AST (17-59) U/L Total Protein (6.3-8.2) g/dL 02/17/24 02/17/24 02/17/24 Range/Units 05:00 05:00 05:59 RBC 2.53 L (4.30-5.90) m/uL Hgb 7.3 L (13.0-17.5) gm/dL Hct 23.3 L (39.0-53.0) % RDW 17.6 H (11.5-15.5) % Plt Count 116 L (150-450) k/uL Neutrophils # 8.6 H (1.3-7.7) k/uL Lymphocytes # 0.9 L (1.0-4.8) k/uL Chloride 112 H (98-107) mmol/L BUN 26 H (9-20) mg/dL Creatinine 1.68 H (0.66-1.25) mg/dL Glucose 104 H (74-99) mg/dL POC Glucose (mg/dL) 115 H (70-110) mg/dL Calcium 8.3 L (8.4-10.2) mg/dL AST 88 H (17-59) U/L Total Protein 5.1 L (6.3-8.2) g/dL 02/17/24 02/17/24 02/17/24 Range/Units 06:59 08:29 09:51 RBC (4.30-5.90) m/uL Hgb (13.0-17.5) gm/dL Hct (39.0-53.0) % RDW (11.5-15.5) % Plt Count (150-450) k/uL Neutrophils # (1.3-7.7) k/uL Lymphocytes # (1.0-4.8) k/uL Chloride (98-107) mmol/L BUN (9-20) mg/dL Creatinine (0.66-1.25) mg/dL Glucose (74-99) mg/dL POC Glucose (mg/dL) 118 H 247 H 134 H (70-110) mg/dL Calcium (8.4-10.2) mg/dL AST (17-59) U/L Total Protein (6.3-8.2) g/dL 02/17/24 02/17/24 Range/Units 10:54 12:33 RBC (4.30-5.90) m/uL Hgb (13.0-17.5) gm/dL Hct (39.0-53.0) % RDW (11.5-15.5) % Plt Count (150-450) k/uL Neutrophils # (1.3-7.7) k/uL Lymphocytes # (1.0-4.8) k/uL Chloride (98-107) mmol/L BUN (9-20) mg/dL Creatinine (0.66-1.25) mg/dL Glucose (74-99) mg/dL POC Glucose (mg/dL) 123 H 129 H (70-110) mg/dL Calcium (8.4-10.2) mg/dL AST (17-59) U/L Total Protein (6.3-8.2) g/dL
[2024-02-17] MEDS: FERROUS SULFATE 325 MG TAB PO SCH (13:31)
[2024-02-17] MEDS: ASCORBIC ACID 500 MG TAB PO SCH (13:31)
[2024-02-17] MEDS: INSULIN DETEMIR (LEVEMIR) 100 UNIT/ML SYR SQ SCH (13:31)
--- NOTE | 2024-02-17 13:37 | CDI ---
Documentation Clarification Form Date: 02/17/2024 12:20:00 PM From: Kalyn Elam Phone: [phone] Admit Date: 02/15/2024 05:39:00 AM Patient Name: Arash Warren Visit Number: [id number] Discharge Date: ATTENTION: The Clinical Documentation Specialists (CDI) and [facility] Coding Staff appreciate your assistance in clarifying documentation. Please respond to the clarification below the line at the bottom and electronically sign. The CDI & [facility] Coding staff will review the response and follow-up if needed. Please note: Queries are made part of the Legal Health Record. If you have any questions, please contact the author of this message via ITS. Doctor/Provider: Rogelio Villanueva Postop vent dependent respiratory failure is documented is documented in the medical management consult on 02/16/24 and patient had CABG x3 with POSADA to LAD, sequential saphenous vein graft to first and second obtuse marginal coronary arteries, endovascular vein harvest, mitral valve repair, placement of intra-aortic balloon pump. Additional clarification is requested regarding the relationship, if any, that exists between the diagnosis and the procedure. Patients Admitting Diagnosis: Congestive heart failure, mitral regurgitation, coronary artery disease, atrial fibrillation Post-Operative Diagnosis: Same Procedure performed: CABG x3 with POSADA to LAD, sequential saphenous vein graft to first and second obtuse marginal coronary arteries, endovascular vein harvest, mitral valve repair, placement of intra-aortic balloon pump via right common femoral artery, modified Vazquez-Maze with complete left-sided lesion set using RF and cryoablation both epi and intracardiac, and ligation of the left atrial appendage with 2 layer suture. History/Risk Factors: Congestive heart failure, mitral regurgitation, coronary artery disease, atrial fibrillation Clinical Indicators: 78-year-old male presented initially with congestive heart failure. He was found to have severe mitral regurgitation left ventricular systolic dysfunction. Present for CABG and mitral valve repair. Following the procedure, he was placed mechanical ventilation. 02/15 Pulmonary consult: The patient came back to the intensive care unit with a balloon pump in place. There was no attempts at weaning the patient overnight. Labs: Na 141, K+ 3.9 Cl 111, Bicarb 23, BUN 22 CR 1.46. WBC 5.9, HGB 8, HCT 24.8 PLT 127. Reportedly not extubated due to increased vasopressor requirements Routine mechanical ventilator management Intubated 02/14 @ 14:36 Extubated 02/15 @ 10:51 Treatment: ICU/Telemetry monitoring Mechanical ventilation per pulmonary (Extubated 02/15) Encourage increased use of the incentive spirometer Titrate the FiO2 as tolerated Increase his activity as tolerated What relationship, if any, exists between the diagnosis of postop vent dependent respiratory failure and the procedure? [ ] Postop vent dependent respiratory failure is a complication of surgical procedure [ x] Postop vent dependent respiratory failure is an expected outcome of the surgical procedure [ ] Postop vent dependent respiratory failure is related to patients co-morbid condition(s) of [insert co-morbid dxs] & not a complication of the procedure [ ] Postop vent dependent respiratory failure has been ruled out [ ] Other please specify ____ [ ] Unable to determine (Template Last Revised: August 2020) MTDD
[2024-02-17 16:14] LABS: Glucose,Whole Blood 212 mg/dL (70-110)
[2024-02-17] MEDS: INSULIN ASPART (NovoLOG) 100 UNIT/ML VIAL SQ SCH (17:06)
[2024-02-17] MEDS: hydrALAZINE HCL 25 MG TAB PO SCH (17:07)
[2024-02-17 20:13] LABS: Glucose,Whole Blood 221 mg/dL (70-110)
[2024-02-17 21:11] LABS: Glucose,Whole Blood 215 mg/dL (70-110)
[2024-02-18] MEDS ORDERED: HEPARIN SODIUM,PORCINE 5,000 UNIT/ML 1 ML VIAL ONE
[2024-02-18] MEDS ORDERED: hydrALAZINE HCL 25 MG TAB ONE
[2024-02-18 06:10] LABS: Anisocytosis Slight; Basophils % (A) 0 %; Eosinophils % (A) 0 %; HCT 23.3 % (39.0-53.0); HGB 7.3 gm/dL (13.0-17.5); Hypochromasia Marked; Lymphocytes % (A) 12 %; MCH 29.4 pg (25.0-35.0); MCHC 31.5 g/dL (31.0-37.0); MCV 93.5 fL (80.0-100.0); Mean Platelet Volume 8.2; Monocytes # (A) 0.4 k/uL (0-1.0); Monocytes % (A) 5 %; Neutrophils # (A) 6.9 k/uL (1.3-7.7); Neutrophils % (A) 82 %; Platelet Count 132 k/uL (150-450); Poikilocytosis Slight; RDW 17.8 % (11.5-15.5); WBC 8.4 k/uL (3.8-10.6)
[2024-02-18 06:31] LABS: Glucose,Whole Blood 162 mg/dL (70-110)
[2024-02-18 08:03] LABS: ALT 44 U/L (4-49); AST 110 U/L (17-59); African American GFR (CKD) 41 (>60 ml/min/1.73 sqM); Alkaline Phosphatase 86 U/L (38-126); Anion Gap 6 mmol/L; Blood Urea Nitrogen 33 mg/dL (9-20); Calcium 8.3 mg/dL (8.4-10.2); Carbon Dioxide 18 mmol/L (22-30); Chloride 111 mmol/L (98-107); Glucose 136 mg/dL (74-99); Non-African American GFR(CKD) 35 (>60 ml/min/1.73 sqM); Potassium 4.3 mmol/L (3.5-5.1); Sodium 135 mmol/L (137-145); Total Bilirubin 1.2 mg/dL (0.2-1.3); Total Protein 4.9 g/dL (6.3-8.2)
--- NOTE | 2024-02-18 08:14 | XR ---
EXAMINATION TYPE: XR chest 1V portable DATE OF EXAM: 02/18/2024 3:58 AM CLINICAL INDICATION: Male, 78 years old with history of post cardiac surgery; COMPARISON: Chest radiographs from 02/17/2024 TECHNIQUE: XR chest 1V portable Frontal view of the chest. FINDINGS: Lungs/Pleura: There is no evidence of pleural effusion, focal consolidation, or pneumothorax. Pulmonary vascularity: Unremarkable. Heart/mediastinum: Cardiomediastinal silhouette is enlarged. Musculoskeletal: No acute osseous pathology. Midline sternotomy wires are noted. Other findings: None Lines/Tubes: Left thoracotomy tube is present without evidence of pneumothorax. There is a Stuart-Julius catheter sheath in place. IMPRESSION: Surgical changes with mild pulmonary edema. No significant change from prior..
--- NOTE | 2024-02-18 10:00 | P.PN ---
Subjective Progress Note Date: 02/18/24 Principal diagnosis: Severe mitral valve regurgitation, acute on chronic diastolic congestive heart failure, coronary artery disease and persistent paroxysmal atrial fibrillation. Past medical history significant for anemia without any evidence of acute GI bleed status post upper and lower endoscopy, chronic kidney disease stage III- IV, hypertension, diabetes mellitus type 2, obesity with a BMI of 31.8 kg/m, prostate cancer status post 45 radiation treatments several years ago, frequent diarrhea and inability to hold his bowel movements controlled with Imodium on an outpatient basis, hard of hearing, and remote history of nicotine dependence in which she quit smoking 45 years ago. POD #3 Coronary artery bypass grafting x 3 with left internal mammary artery to the left anterior sending coronary artery, sequential saphenous vein graft to first and second obtuse marginal coronary arteries, endovascular vein harvest left leg, mitral valve repair with 28 mm annular flex band, percutaneous placement of intra-aortic balloon pump via right common femoral artery, modified Vazquez-Maze with complete left-sided lesion set using radiofrequency and cryoablation both epicardial and intracardiac, and ligation of the left atrial appendage with 2 layer suture closure. Postoperative acute blood loss anemia, expected given cardiopulmonary bypass, hemodilution and preoperative history of anemia. The patient was seen and examined in follow-up today 02/18/2024 at his bedside in the intensive care unit. He is currently sitting up to the bedside chair, is awake, alert, oriented x 3 and is in no acute apparent distress. He denies any complaints of shortness of breath at this time, he does complain of some surgical type pain to his chest tube insertion sites and with taking a deep breath and coughing, although reports his pain is well-controlled with the current pain medication regimen. He is also complaining of a cough with inability to cough up sputum. Oxygen saturations are 95% on room air and he is achieving 1000 mL on his incentive spirometry with encouragement. Bedside telemetry is showing normal sinus rhythm with first-degree heart block and a bundle branch block heart rate 62 bpm. Atrial and ventricular epicardial pacemaker wires remain in place and are connected to backup bedside pacemaker generator on a VVI mode with a heart rate of 58 bpm. Right IJ cordis remains in place with continuous CVP monitoring, current CVP pressure 6 mmHg. He remains hemodynamically stable and is currently on no inotropic or pressor support. Mediastinal and left pleural chest tubes remain in place to low continuous wall suction -20 cm H2O. No air leak is present. Mediastinal chest tubes drained 40 mL of thin serosanguineous drainage in the last 8 hours and 80 mL output in the last 24 hours. Left pleural chest tube drained 20 mL of thin serosanguineous drainage in the last 8 hours and 60 mL output in the last 24 hours. The patient reports he has been up ambulating in the intensive care unit hallway with standby assistance nursing and therapy staff and tolerating well, although complains of some generalized weakness. Chest x-ray and laboratory results were reviewed. Objective - Vital Signs Vital signs: Vital Signs Temp 98 F 02/18/24 00:00 Pulse 61 02/18/24 07:47 Resp 21 02/18/24 07:00 BP 123/62 02/18/24 06:02 Pulse Ox 91 L 02/18/24 07:51 FiO2 40 02/16/24 10:06 Intake & Output 02/17/24 02/18/24 02/18/24 18:59 06:59 18:59 Intake Total 2750.135 6547 236 Output Total 365 415 10 Balance 682.524 817 226 Weight 94.3 kg 94.1 kg Intake: IV 428 432 36 CO/CI 20 Pressure Bags 78 72 6 Sodium Chloride 0.9% 1, 330 360 30 000 ml @ 30 mls/hr IV . Q24H JAYLEN Rx#:[id number] Intake, IV Titration 59.524 Amount Insulin Regular 100 unit 20.293 In Sodium Chloride 0.9% 100 ml @ Per Protocol IV .Q0M JAYLEN Rx#:[id number] Milrinone-D5w Pmx 20 mg 39.231 In Dextrose/Water 1 100ml .bag @ 0.2 MCG/KG/MIN 5. 106 mls/hr IV .[id number] JAYLEN Rx#:[id number] Oral 560 800 200 Output: Chest Tube Drainage 90 60 0 Lt pleural 50 20 0 Mediastinal 40 40 0 Urine 275 355 10 Other: Voiding Method Indwelling Catheter Indwelling Catheter ABP, PAP, CO, CI - Last Documented Arterial Blood Pressure 116/45 Pulmonary Artery Pressure 33/10 Cardiac Output 3.6 Cardiac Index 1.8 - Exam CONSTITUTIONAL: Sitting up to the bedside chair in the intensive care unit, appears comfortable, cooperative, no apparent acute distress. HEENT: Neck is supple, no JVD, no lymphadenopathy. Right IJ Cordis in place and functioning. RESPIRATORY: Lungs sounds with scattered rhonchi, diminished to his bilateral bases. Currently on room air with oxygen saturations 95%. Able to achieve 1000 mL on his incentive spirometry. Strong cough. CARDIOVASCULAR: Regular rhythm and rate. S1 and S2 present, negative for S3, gallop or murmur. Bedside telemetry is showing normal sinus rhythm with first- degree heart block and bundle branch block with a heart rate of 62 bpm. Sternum is stable. Palpable peripheral pulses bilaterally. No calf pain or tenderness noted. Heart hugger in place, demonstrating appropriate use. Knee-high RAYMUNDO hose and sequential compression devices in place to his bilateral lower extremities. GASTROINTESTINAL: Abdomen soft, nontender, nondistended. Active bowel sounds present 4 quadrants. Tolerating diet. No guarding or rigidity. GENITOURINARY: Jones present draining clear, yellow urine. Urine output 185 mL in the last 8 hours. INTEGUMENTARY: Skin is warm and dry with no evidence of clubbing or cyanosis. Midline sternal incision clean dry and well approximated, covered with dry intact dressing. Left lower extremity EVH sites well approximated without redness or drainage. NEUROLOGIC: No focal deficits. MUSKULOSKELETAL: Able to move all extremities, strength equal bilaterally, generalized weakness. PSYCHIATRIC: Alert and oriented to person place and time, appropriate affect, intact judgment and insight. INVASIVE LINES AND TUBES: Mediastinal/left pleural chest tubes present and connected to low continuous wall suction, no air leaks present. Mediastinal tubes with 40 mL of thin serosanguineous drainage overnight, 80 mL output in the last 24 hours. Left pleural chest tube with 20 mL of thin serosanguineous drainage overnight, 60 mL output in the last 24 hours. Atrial and ventricular epicardial pacemaker wires present, connected to generator, VVI mode of 58 bpm. Right internal jugular Cordis, right radial arterial line present. Current CVP 6 mmHg. - Allied health notes Allied health notes reviewed: nursing - Labs CBC & Chem 7: 02/18/24 05:15 02/18/24 05:15 Labs: Abnormal Lab Results - Last 24 Hours (Table) 02/17/24 02/17/24 02/17/24 Range/Units 08: 09:51 10:54 RBC (4.30-5.90) m/uL Hgb (13.0-17.5) gm/dL Hct (39.0-53.0) % RDW (11.5-15.5) % Plt Count (150-450) k/uL POC Glucose (mg/dL) 247 H 134 H 123 H (70-110) mg/dL 02/17/24 02/17/24 02/17/24 Range/Units 12:33 16:12 20:11 RBC (4.30-5.90) m/uL Hgb (13.0-17.5) gm/dL Hct (39.0-53.0) % RDW (11.5-15.5) % Plt Count (150-450) k/uL POC Glucose (mg/dL) 129 H 212 H 221 H (70-110) mg/dL 02/17/24 02/18/24 02/18/24 Range/Units 21:09 05:15 06:30 RBC 2.50 L (4.30-5.90) m/uL Hgb 7.3 L (13.0-17.5) gm/dL Hct 23.3 L (39.0-53.0) % RDW 17.8 H (11.5-15.5) % Plt Count 132 L (150-450) k/uL POC Glucose (mg/dL) 215 H 162 H (70-110) mg/dL - Imaging and Cardiology Chest x-ray: report reviewed, image reviewed Assessment and Plan Assessment: Severe mitral valve regurgitation, status post mitral valve repair with 28 mm annular flex band Coronary artery disease status post coronary artery bypass grafting x 3 with left internal mammary artery to the left anterior sending coronary artery Persistent paroxysmal atrial fibrillation status post modified Vazquez-Maze with complete left-sided lesion set using radiofrequency and cryoablation both epicardial and intracardiac, and ligation of the left atrial appendage with 2 layer suture closure Acute on chronic systolic congestive heart failure, status post percutaneous placement of intra-aortic balloon pump via right common femoral artery, and subsequent removal of intra-aortic balloon pump on 02/16/2024 Chronic kidney disease stage IIIb, with a preoperative creatinine of 2.24 Chronic anemia without any evidence of acute GI bleed, status post recent upper and lower endoscopy Hypertension Diabetes mellitus type 2 with a preoperative hemoglobin A1c of 9.3% Obesity with a BMI of 31.8 kg/m Prostate cancer status post 45 radiation treatment several years ago Frequent diarrhea and inability to hold his bowel movements controlled with Imodium on an outpatient basis Remote history of nicotine dependence quit smoking 45 years ago Postoperative acute blood loss anemia, expected given cardiopulmonary bypass, hemodilution and his preoperative anemia Elevated transaminitis enzymes, AST 110, ALT 44 Medical debility Plan: Continue to maximize medical therapy with aspirin, statin, and Plavix. Continue to hold metoprolol tartrate at this time. Will monitor daily labs and chest x-rays. Electrolyte replacement per protocol. We will send a prealbumin tomorrow. Encourage incentive spirometry use 10 times every hour while awake. Bronchodilators per pulmonology/critical care management. Continue Mucinex, Mucomyst nebulizer and Symbicort. Increase activity, ambulate as tolerated. PT/OT/cardiac rehab following. Patient walks with a walker at home. Pain control per current medication regimen. Once his chest tubes are removed we will discontinue his oxycodone. Avoid nephrotoxic agents Continue home dose of Nephrocaps. Insulin management per internal medicine. Patient should remain on IV insulin for another 24 hours, then may transition to subcutaneous insulin per protocol. Preoperative hemoglobin A1c 9.3%. We remove his mediastinal and left pleural chest tubes today. We will remove his right IJ cordis and right radial arterial line Continue Jones catheter for another 24 hours, continue to record strict accurate intake and output. Daily weights. Continue hydralazine 25 mg p.o. TID started for afterload reduction. We will start Lasix 20 mg IV every 8 hours and potassium 20 mill equivalents p.o. daily while on Lasix. Continue atrial and ventricular epicardial pacemaker wires, keep epicardial p acemaker wires connected to bedside backup pacemaker generator on a VVI mode of 58 bpm. More recommendations to follow based on patient's clinical course. Time with Patient: Greater than 30
--- NOTE | 2024-02-18 10:01 | P.PN ---
Subjective Patient is seen in follow-up for chronic kidney disease. Sitting up in chair. On nasal cannula. Denies chest pain or shortness of breath. Renal function stable. Vital signs are stable. General: No acute distress. HEENT: Head exam is unremarkable. On nasal cannula. LUNGS: No audible rhonchi or wheezes. Chest tubes noted. HEART: Rate and Rhythm are regular. ABDOMEN: Nontender. EXTREMITITES: No edema. Objective - Vital Signs Vital signs: Vital Signs Temp 97.7 F 02/18/24 08:00 Pulse 59 L 02/18/24 09:00 Resp 20 02/18/24 09:00 BP 123/62 02/18/24 06:02 Pulse Ox 94 L 02/18/24 09:00 FiO2 40 02/16/24 10:06 Intake & Output 02/17/24 02/18/24 02/18/24 18:59 06:59 18:59 Intake Total 5995.177 6484 428 Output Total 365 415 60 Balance 682.524 817 368 Weight 94.3 kg 94.1 kg Intake: IV 428 432 108 CO/CI 20 Pressure Bags 78 72 18 Sodium Chloride 0.9% 1, 330 360 90 000 ml @ 30 mls/hr IV . Q24H JAYLEN Rx#:[id number] Intake, IV Titration 59.524 Amount Insulin Regular 100 unit 20.293 In Sodium Chloride 0.9% 100 ml @ Per Protocol IV .Q0M JAYLEN Rx#:[id number] Milrinone-D5w Pmx 20 mg 39.231 In Dextrose/Water 1 100ml .bag @ 0.2 MCG/KG/MIN 5. 106 mls/hr IV .[id number] JAYLEN Rx#:[id number] Oral 560 800 320 Output: Chest Tube Drainage 90 60 0 Lt pleural 50 20 0 Mediastinal 40 40 0 Urine 275 355 60 Other: Voiding Method Indwelling Catheter Indwelling Catheter Indwelling Catheter ABP, PAP, CO, CI - Last Documented Arterial Blood Pressure 112/46 Pulmonary Artery Pressure 33/10 Cardiac Output 3.6 Cardiac Index 1.8 - Labs CBC & Chem 7: 02/18/24 05:15 02/18/24 05:15 Labs: Abnormal Lab Results - Last 24 Hours (Table) 02/17/24 02/17/24 02/17/24 Range/Units 10:54 12:33 16:12 RBC (4.30-5.90) m/uL Hgb (13.0-17.5) gm/dL Hct (39.0-53.0) % RDW (11.5-15.5) % Plt Count (150-450) k/uL Sodium (137-145) mmol/L Chloride (98-107) mmol/L Carbon Dioxide (22-30) mmol/L BUN (9-20) mg/dL Creatinine (0.66-1.25) mg/dL Glucose (74-99) mg/dL POC Glucose (mg/dL) 123 H 129 H 212 H (70-110) mg/dL Calcium (8.4-10.2) mg/dL AST (17-59) U/L Total Protein (6.3-8.2) g/dL Albumin (3.5-5.0) g/dL 02/17/24 02/17/24 02/18/24 Range/Units 20:11 21:09 05:15 RBC 2.50 L (4.30-5.90) m/uL Hgb 7.3 L (13.0-17.5) gm/dL Hct 23.3 L (39.0-53.0) % RDW 17.8 H (11.5-15.5) % Plt Count 132 L (150-450) k/uL Sodium (137-145) mmol/L Chloride (98-107) mmol/L Carbon Dioxide (22-30) mmol/L BUN (9-20) mg/dL Creatinine (0.66-1.25) mg/dL Glucose (74-99) mg/dL POC Glucose (mg/dL) 221 H 215 H (70-110) mg/dL Calcium (8.4-10.2) mg/dL AST (17-59) U/L Total Protein (6.3-8.2) g/dL Albumin (3.5-5.0) g/dL 02/18/24 02/18/24 Range/Units 05:15 06:30 RBC (4.30-5.90) m/uL Hgb (13.0-17.5) gm/dL Hct (39.0-53.0) % RDW (11.5-15.5) % Plt Count (150-450) k/uL Sodium 135 L (137-145) mmol/L Chloride 111 H (98-107) mmol/L Carbon Dioxide 18 L (22-30) mmol/L BUN 33 H (9-20) mg/dL Creatinine 1.78 H (0.66-1.25) mg/dL Glucose 136 H (74-99) mg/dL POC Glucose (mg/dL) 162 H (70-110) mg/dL Calcium 8.3 L (8.4-10.2) mg/dL AST 110 H (17-59) U/L Total Protein 4.9 L (6.3-8.2) g/dL Albumin 3.0 L (3.5-5.0) g/dL Assessment and Plan Plan: Assessment: 1. Chronic kidney disease stage IIIb secondary to diabetic kidney disease with baseline creatinine 1.5-2. GFR stable. 2. Coronary artery disease status post CABG x 3 and mitral valve repair February 15, 2024. 3. Diabetes mellitus. 4. Anemia of chronic kidney disease with component of acute blood loss post CAB G. on Aranesp. 5. Metabolic acidosis secondary to chronic kidney disease and IV fluids. 6. Chronic systolic CHF. 7. Mild volume overload. Plan: Hep-Lock IV fluids. IV Lasix started by cardiothoracic surgery this morning. Encourage oral intake. Continue to monitor renal function and urine output. Add oral bicarb. Stop magnesium supplementation.
[2024-02-18] MEDS: FUROSEMIDE 10 MG/ML 2 ML VIAL IV SCH (10:12)
[2024-02-18] MEDS: ACETAMINOPHEN TAB 500 MG TAB PO PRN (11:05)
[2024-02-18] MEDS: SODIUM BICARBONATE TAB 650 MG TAB PO SCH (11:05)
[2024-02-18 11:14] LABS: Glucose,Whole Blood 183 mg/dL (70-110)
--- NOTE | 2024-02-18 11:31 | P.PN ---
Subjective Progress Note Date: 02/18/24 Patient is a-year-old white male with past medical history significant for prostate cancer, diabetes mellitus, hypertension, angina, atrial fibrillation normally anticoagulated on Eliquis. Of note, patient had a recent hospitalization 12/24/2023 where he did have an extensive cardiac workup. He was found to have multivessel coronary artery disease and severe mitral regurgitation. Cardiac cath done on 12/28/2023 demonstrates 80% mid LAD stenosis, 90% mid OM2 disease, and moderate diffuse disease in the PDA. Cardiothoracic team was asked to evaluate this patient up for potential open heart surgery. Echocardiogram done the same admission showed a left ventricular ejection fraction estimated at 25 to 30%, as well as, moderate to severe mitral valve regurgitation. Patient underwent open heart surgery yesterday 02/15/2024 including coronary artery bypass grafting x 3 with POSADA to LAD, sequential saphenous vein graft to first and second obtuse marginal coronary arteries, mitral valve repair with 28 mm annular flex band, modified Vazquez-Maze with completed left sided lesion set using RF and cryoablation, ligation of left atrial appendage, and percutaneous placement of intra-aortic balloon pump. Patient was transferred to the intensive care unit postoperatively in critical condition. Or exit time documented at 1430. He did have a 2 L EBL. Status post 4 units PRBC, 2 FFP, 2 platelets, 1.5 L albumin, and 1200 mL Cell Saver. He remains intubated to mechanical ventilator. Postoperative chest x-ray shows mild pulmonary congestion and cardiomegaly, no pneumothorax. Endotracheal tube 2.6 cm above the clark. NG tube courses below the diaphragm. Kinsman-Julius catheter with tip projecting over the spine, mediastinal and left thoracotomy tubes in place. Postoperative ABG PaO2 204, pCO2 40, pH 7.36. Current ventilator settings including assist-control, respiratory rate 14, tidal volume 500, FiO2 50%, PEEP of 5. Peak pressure 22, no significant airway secretions. Patient is lightly sedated on propofol which is currently infusing at 50 mcg/kg/min. He does awaken to verbal stimuli, follows all commands, moves all 4 extremities equally. Reportedly has not been extubated at this point, due to increased vasopressor requirements. He is on a one-to-one balloon pump with augmented pressure of 87 mean pressure 65. CI 2.4/CO 4.8. Pulmonary artery pressure 47/22. CVP 14. Milrinone infusing at 0.2 mcg/kg/min. Norepinephrine infusing at 0.04 mcg/kg/min. Normal saline also infusing at 50 mL/h. Insulin per protocol. He does have an epicardial pacemaker wires, currently DDI settings at a rate of 80 bpm. Patient does have 2 mediastinal chest tubes hooked to an atrium with 470 mL of serosanguineous output at this point in time. Left pleural chest tube has a total of 180 mL of serosanguineous output. These are both to negative 20 cm H2O suction. No obvious air leak. Urinary catheter is in place, draining adequate urine output in the order of 30 to 40 mL/h. Most recent CBC: WBC count 5.9, hemoglobin 8, hematocrit 24.8, platelets 127. Coagulation profile including PT 13.6, INR 1.3, APTT 28.6, fibrinogen 215. CMP: Sodium 141, potassium 3.9, chloride 111, serum bicarb 23, BUN 33, creatinine 1.56, glucose 149. Ionized calcium 5. AST 194, ALT 95, ALP 56. Plan is to pursue extubation later this morning. The patient is seen today February 17, 2024 in follow-up in the intensive care unit. Postoperative day #2. He is currently sitting up in chair at the [facility]. Awake and alert in no acute distress. Chest x-ray continues to show some atelectasis and small effusions bilaterally. He is a good encouraged regarding the increased use of the incentive spirometer. Cardiac output 6.1. Cardiac index 3.1. He is on normal saline at 30 mL/h. Primacor was discontinued this morning. He remains on insulin drip at 6 units/h. Mediastinal and left chest tubes remain in place. White count 10.0. Hemoglobin 7.3. Platelets 116. Sodium 140. Potassium 3.9. Bicarb 22. BUN 26. Creatinine 1.68. Glucose 123. He remains on DuoNeb inhalations, Symbicort, Mucinex. Heparin for DVT prophylaxis. The patient is seen today February 18, 2024 in follow-up in the intensive care unit. Postoperative day #3. He is awake and alert in no acute distress. Maintaining good O2 saturations in the mid 90s on room air. He is afebrile. Hemodynamically stable. Sitting up in a chair at the bedside. He has been on several walks yesterday and earlier today. He is doing well. Working well with the incentive spirometer. No worsening shortness of breath, cough or congestion. This x-ray continues to show mild pulmonary edema. Mediastinal and left chest tubes in place. Cordis in place. He has normal saline at 30 mL/h. White count 8.4. Hemoglobin 7.3. Platelets 132. Sodium 135. Potassium 4.3. Bicarb 18. BUN 33. Creatinine 1.78. Glucose 136. AST 110. ALT 44. He remains on DuoNeb inhalations. Heparin for DVT prophylaxis. He remains on Lasix 20 mg IV every 8 hours. He is currently in a +1.5 L balance. Objective - Vital Signs Vital signs: Vital Signs Temp 97.7 F 02/18/24 08:00 Pulse 58 L 02/18/24 11:00 Resp 21 02/18/24 11:00 BP 101/63 02/18/24 11:00 Pulse Ox 95 02/18/24 11:00 FiO2 40 02/16/24 10:06 Intake & Output 02/17/24 02/18/24 02/18/24 18:59 06:59 18:59 Intake Total 7505.850 9828 428 Output Total 365 415 135 Balance 682.524 817 293 Weight 94.3 kg 94.1 kg Intake: IV 428 432 108 CO/CI 20 Pressure Bags 78 72 18 Sodium Chloride 0.9% 1, 330 360 90 000 ml @ 30 mls/hr IV . Q24H JAYLEN Rx#:[id number] Intake, IV Titration 59.524 Amount Insulin Regular 100 unit 20.293 In Sodium Chloride 0.9% 100 ml @ Per Protocol IV .Q0M JAYLEN Rx#:[id number] Milrinone-D5w Pmx 20 mg 39.231 In Dextrose/Water 1 100ml .bag @ 0.2 MCG/KG/MIN 5. 106 mls/hr IV .[id number] JAYLEN Rx#:[id number] Oral 560 800 320 Output: Chest Tube Drainage 90 60 0 Lt pleural 50 20 0 Mediastinal 40 40 0 Urine 275 355 135 Other: Voiding Method Indwelling Catheter Indwelling Catheter Indwelling Catheter ABP, PAP, CO, CI - Last Documented Arterial Blood Pressure 100/40 Pulmonary Artery Pressure 33/10 Cardiac Output 3.6 Cardiac Index 1.8 - Exam GENERAL EXAM: Awake, pleasant 78-year-old male patient on air, fairly comfortable in no acute distress. HEAD: Normocephalic and atraumatic EYES: Normal reaction of pupils, equal size. NOSE: Clear with pink turbinates. THROAT: No erythema or exudates. NECK: No masses, no JVD. Right IJ introducer sheath CHEST: Midstern incision dressed with postoperative dressing clean, dry, intact. Epicardial pacemaker noted. Mediastinal chest tubes and left pleural chest tubes in place. LUNGS: Equal air entry with no crackles, wheeze, rhonchi or dullness. CVS: S1 and S2 normal with no audible murmur, regular rhythm. ABDOMEN: No hepatosplenomegaly, active bowel sounds, no guarding or rigidity. SPINE: No scoliosis or deformity SKIN: No rashes CENTRAL NERVOUS SYSTEM: No focal deficits, tone is normal in all 4 extremities. EXTREMITIES: Distal pulses intact. Legs wrapped with Clive bandages. - Labs CBC & Chem 7: 02/18/24 05:15 02/18/24 05:15 Labs: Abnormal Lab Results - Last 24 Hours (Table) 02/17/24 02/17/24 02/17/24 Range/Units 12:33 16:12 20:11 RBC (4.30-5.90) m/uL Hgb (13.0-17.5) gm/dL Hct (39.0-53.0) % RDW (11.5-15.5) % Plt Count (150-450) k/uL Sodium (137-145) mmol/L Chloride (98-107) mmol/L Carbon Dioxide (22-30) mmol/L BUN (9-20) mg/dL Creatinine (0.66-1.25) mg/dL Glucose (74-99) mg/dL POC Glucose (mg/dL) 129 H 212 H 221 H (70-110) mg/dL Calcium (8.4-10.2) mg/dL AST (17-59) U/L Total Protein (6.3-8.2) g/dL Albumin (3.5-5.0) g/dL 02/17/24 02/18/24 02/18/24 Range/Units 21:09 05:15 05:15 RBC 2.50 L (4.30-5.90) m/uL Hgb 7.3 L (13.0-17.5) gm/dL Hct 23.3 L (39.0-53.0) % RDW 17.8 H (11.5-15.5) % Plt Count 132 L (150-450) k/uL Sodium 135 L (137-145) mmol/L Chloride 111 H (98-107) mmol/L Carbon Dioxide 18 L (22-30) mmol/L BUN 33 H (9-20) mg/dL Creatinine 1.78 H (0.66-1.25) mg/dL Glucose 136 H (74-99) mg/dL POC Glucose (mg/dL) 215 H (70-110) mg/dL Calcium 8.3 L (8.4-10.2) mg/dL AST 110 H (17-59) U/L Total Protein 4.9 L (6.3-8.2) g/dL Albumin 3.0 L (3.5-5.0) g/dL 02/18/24 02/18/24 Range/Units 06:30 11:12 RBC (4.30-5.90) m/uL Hgb (13.0-17.5) gm/dL Hct (39.0-53.0) % RDW (11.5-15.5) % Plt Count (150-450) k/uL Sodium (137-145) mmol/L Chloride (98-107) mmol/L Carbon Dioxide (22-30) mmol/L BUN (9-20) mg/dL Creatinine (0.66-1.25) mg/dL Glucose (74-99) mg/dL POC Glucose (mg/dL) 162 H 183 H (70-110) mg/dL Calcium (8.4-10.2) mg/dL AST (17-59) U/L Total Protein (6.3-8.2) g/dL Albumin (3.5-5.0) g/dL Assessment and Plan Assessment: Postoperative day #3 following coronary artery bypass grafting x 3 with POSADA to LAD, sequential saphenous vein graft to first and second obtuse marginal coronary arteries, mitral valve repair with 28 mm annular flex band, modified Vazquez-Maze with completed left sided lesion set using RF and cryoablation, ligation of left atrial appendage, and percutaneous placement of intra-aortic balloon pump. Balloon pump removed. Routine mechanical ventilator management and subsequent extubation. Today's ches t x-ray shows mild pulmonary congestion and cardiomegaly, no pneumothorax. Mediastinal and left thoracotomy tubes in place. Multivessel coronary artery disease History of severe mitral valve regurgitation Acute blood loss anemia, expected outcome of surgery, Status post 4 units PRBC, 2 FFP, 2 platelets, 1.5 L albumin, and 1200 mL Cell Saver. Acute kidney injury, secondary to hypotension and ATN Diabetes mellitus type 2 History of atrial fibrillation, normally anticoagulated on Eliquis, status post synchronized cardioversion on 12/31/2023 History of hypertension Former tobacco smoker History of prostate cancer with previous radiation Plan: The patient was seen and evaluated Chest x-ray, labs and medications reviewed Currently stable and on room air Encourage increased use of the incentive spirometer Continued on bronchodilators Heparin for DVT prophylaxis Increase his activity as tolerated We will continue to follow I have personally seen and examined the patient, performed the documentation and the assessment and plan as written. Number of minutes spent on the visit: 10.
[2024-02-18] MEDS: POTASSIUM BICARBONATE/CIT AC 20 MEQ TABLET.EFF PO SCH (12:04)
--- NOTE | 2024-02-18 12:37 | P.PN ---
Subjective Progress Note Date: 02/18/24 Patient is an 78-year-old male with a past medical history of A-fib anticoagulated with Eliquis, hypertension, diabetes mellitus type 2, prostate cancer. He is postop day 3 of coronary artery bypass grafting x 3 with POSADA to LAD, sequential saphenous vein graft to first and second obtuse marginal coronar y arteries, endovascular vein harvest, mitral valve repair with 28 mm annular flex band, percutaneous placement of intra-aortic balloon pump via right common femoral artery, modified Vazquez-Maze with complete left-sided lesion set using RF and cryoablation both epi and intracardiac, and ligation of the left atrial appendage with 2 layer suture closure. Balloon pump removed. He is in normal sinus rhythm and hemodynamically stable. Patient has discomfort at the incision sites. He states that his breathing has improved. ROS performed. Pertinent positives and negatives as documented above, all other systems negative. Objective - Vital Signs Vital signs: Vital Signs Temp 97.7 F 02/18/24 08:00 Pulse 58 L 02/18/24 08:00 Resp 18 02/18/24 08:00 BP 123/62 02/18/24 06:02 Pulse Ox 93 L 02/18/24 08:00 FiO2 40 02/16/24 10:06 Intake & Output 02/17/24 02/18/24 02/18/24 18:59 06:59 18:59 Intake Total 9021.507 3923 392 Output Total 365 415 35 Balance 682.524 817 357 Weight 94.3 kg 94.1 kg Intake: IV 428 432 72 CO/CI 20 Pressure Bags 78 72 12 Sodium Chloride 0.9% 1, 330 360 60 000 ml @ 30 mls/hr IV . Q24H JAYLEN Rx#:[id number] Intake, IV Titration 59.524 Amount Insulin Regular 100 unit 20.293 In Sodium Chloride 0.9% 100 ml @ Per Protocol IV .Q0M JAYLEN Rx#:[id number] Milrinone-D5w Pmx 20 mg 39.231 In Dextrose/Water 1 100ml .bag @ 0.2 MCG/KG/MIN 5. 106 mls/hr IV .[id number] JAYLEN Rx#:[id number] Oral 560 800 320 Output: Chest Tube Drainage 90 60 0 Lt pleural 50 20 0 Mediastinal 40 40 0 Urine 275 355 35 Other: Voiding Method Indwelling Catheter Indwelling Catheter ABP, PAP, CO, CI - Last Documented Arterial Blood Pressure 127/48 Pulmonary Artery Pressure 33/10 Cardiac Output 3.6 Cardiac Index 1.8 - Exam Vital signs are stable. General: No acute distress. HEENT: Head exam is unremarkable. No JVD present. Lungs: Clear to auscultation bilaterally. Mediastinal and left pleural chest tubes present. Heart: Rate and rhythm are regular. S1S2 present. Abdomen: Soft, nontender. Extremities: No edema present. - Labs CBC & Chem 7: 02/18/24 05:15 02/18/24 05:15 Labs: Abnormal Lab Results - Last 24 Hours (Table) 02/17/24 02/17/24 02/17/24 Range/Units 09:51 10:54 12:33 RBC (4.30-5.90) m/uL Hgb (13.0-17.5) gm/dL Hct (39.0-53.0) % RDW (11.5-15.5) % Plt Count (150-450) k/uL Sodium (137-145) mmol/L Chloride (98-107) mmol/L Carbon Dioxide (22-30) mmol/L BUN (9-20) mg/dL Creatinine (0.66-1.25) mg/dL Glucose (74-99) mg/dL POC Glucose (mg/dL) 134 H 123 H 129 H (70-110) mg/dL Calcium (8.4-10.2) mg/dL AST (17-59) U/L Total Protein (6.3-8.2) g/dL Albumin (3.5-5.0) g/dL 02/17/24 02/17/24 02/17/24 Range/Units 16:12 20:11 21:09 RBC (4.30-5.90) m/uL Hgb (13.0-17.5) gm/dL Hct (39.0-53.0) % RDW (11.5-15.5) % Plt Count (150-450) k/uL Sodium (137-145) mmol/L Chloride (98-107) mmol/L Carbon Dioxide (22-30) mmol/L BUN (9-20) mg/dL Creatinine (0.66-1.25) mg/dL Glucose (74-99) mg/dL POC Glucose (mg/dL) 212 H 221 H 215 H (70-110) mg/dL Calcium (8.4-10.2) mg/dL AST (17-59) U/L Total Protein (6.3-8.2) g/dL Albumin (3.5-5.0) g/dL 02/18/24 02/18/24 02/18/24 Range/Units 05:15 05:15 06:30 RBC 2.50 L (4.30-5.90) m/uL Hgb 7.3 L (13.0-17.5) gm/dL Hct 23.3 L (39.0-53.0) % RDW 17.8 H (11.5-15.5) % Plt Count 132 L (150-450) k/uL Sodium 135 L (137-145) mmol/L Chloride 111 H (98-107) mmol/L Carbon Dioxide 18 L (22-30) mmol/L BUN 33 H (9-20) mg/dL Creatinine 1.78 H (0.66-1.25) mg/dL Glucose 136 H (74-99) mg/dL POC Glucose (mg/dL) 162 H (70-110) mg/dL Calcium 8.3 L (8.4-10.2) mg/dL AST 110 H (17-59) U/L Total Protein 4.9 L (6.3-8.2) g/dL Albumin 3.0 L (3.5-5.0) g/dL Assessment and Plan Assessment: 1. Severe mitral valve regurgitation, status post mitral valve repair with 28 mm annular flex band. 2. Coronary artery disease status post coronary artery bypass grafting x 3 with left internal mammary artery to the left anterior sending coronary artery. 3. Needs further workup get surgery. Persistent paroxysmal atrial fibrillation status post modified Vazquez-Maze with complete left-sided lesion set using radiofrequency and cryoablation both epicardial and intracardiac, and ligation of the left atrial appendage with 2 layer suture closure. 4. Acute on chronic systolic congestive heart failure, status post percutaneous placement of intra-aortic balloon pump via right common femoral artery, and subsequent removal of intra-aortic balloon pump on 02/16/2024. 5. Hypertension. 6. Bradycardia. 7. Chronic kidney disease stage IIIb, with a preoperative creatinine of 2.24. 8. Diabetes mellitus type 2. 9. Prostate cancer status post radiation treatment several years ago. 10. History remote history of nicotine dependence quit smoking 45 years ago. Plan: Continue aspirin. Continue Plavix. Continue Lasix. Continue hydralazine.
--- NOTE | 2024-02-18 13:27 | P.PN ---
Subjective Progress Note Date: 02/18/24 patient is a 78-year-old gentleman with past medical history significant for prostate cancer, diabetes mellitus, hypertension, angina, atrial fibrillation normally anticoagulated on Eliquis, recent cardiac workup showing multivessel coronary disease and severe MR who presented to the hospital for open heart surgery. Patient underwent coronary artery bypass grafting x 3 with POSADA to LAD, sequential saphenous vein graft to first and second obtuse marginal coronary arteries, mitral valve repair with 28 mm annular flex band, modified Vazquez-Maze with completed left sided lesion set using RF and cryoablation, ligation of left atrial appendage, and percutaneous placement of intra-aortic balloon pump. Patient was admitted to ICU. Internal medicine team were consulted for medical management 02/16. Patient seen and examined. Patient was extubated yesterday. Patient was on insulin drip, being transitioned to subcu insulin. Complaining of congestion. Denies any shortness of breath at rest 02/17. Patient seen and examined. Currently in ICU, chest tubes were removed. REVIEW OF SYSTEMS: CONSTITUTIONAL: No fever, no malaise,. CARDIOVASCULAR: Complaining of pain at the site of surgery. PULMONARY: Mentioned above, GASTROINTESTINAL: No diarrhea, no nausea, no vomiting, no abdominal pain. NEUROLOGICAL: No headaches, no weakness, PHYSICAL EXAMINATION: GENERAL: The patient is alert and oriented x3, not in any acute distress. Well developed, well nourished. HEENT: Pupils are round and equally reacting to light. EOMI. No scleral icterus. No conjunctival pallor. Normocephalic, atraumatic. No pharyngeal erythema. No thyromegaly. CARDIOVASCULAR: S1 and S2 present. No murmurs, rubs, or gallops. Sternotomy surgical incision seen PULMONARY: Coarse breath sounds, no wheezing or crackles. Bilateral chest tube seen ABDOMEN: Soft, normoactive bowel sounds. No palpable organomegaly. MUSCULOSKELETAL: No joint swelling or deformity. EXTREMITIES: No cyanosis, clubbing, or pedal edema. NEUROLOGICAL: Gross neurological examination did not reveal any focal deficits. SKIN: No rashes. Assessment and plan coronary artery bypass grafting x 3 with POSADA to LAD, sequential saphenous vein graft to first and second obtuse marginal coronary arteries, mitral valve repair with 28 mm annular flex band, modified Vazquez-Maze with completed left sided lesion set using RF and cryoablation, ligation of left atrial appendage, and percutaneous placement of intra-aortic balloon pump. Postop vent dependent respiratory failure Multivessel coronary artery disease History of severe mitral valve regurgitation Acute blood loss anemia Acute kidney injury Diabetes mellitus type 2 History of atrial fibrillation History of hypertension Former tobacco smoker History of prostate cancer with previous radiation Monitor vital signs Monitor CBC Monitor CMP Continue telemetry monitoring Encourage use of incentive spirometer Aggressive bronchopulmonary hygiene Continue aspirin Plavix Continue hydralazine Continue breathing treatments Monitor blood sugar levels, continue moderate intensity sliding scale insulin and Levemir 10 units daily Cardiac surgery following Critical care following Labs and medication were reviewed.. Continue same treatment. Continue with symptomatic treatment. Resume home medication. Monitor labs and vitals. DVT and GI prophylaxis. Further recommendations as per clinical course of the patient Dictation was produced using [employer] dictation software. please excuse any g rammatical, word or spelling errors. Objective - Vital Signs Vital signs: Vital Signs Temp 98.2 F 02/18/24 12:00 Pulse 58 L 02/18/24 13:00 Resp 22 02/18/24 13:00 BP 89/66 02/18/24 13:00 Pulse Ox 94 L 02/18/24 13:00 FiO2 40 02/16/24 10:06 Intake & Output 02/17/24 02/18/24 02/18/24 18:59 06:59 18:59 Intake Total 4187.377 8490 428 Output Total 365 415 175 Balance 682.524 817 253 Weight 94.3 kg 94.1 kg Intake: IV 428 432 108 CO/CI 20 Pressure Bags 78 72 18 Sodium Chloride 0.9% 1, 330 360 90 000 ml @ 30 mls/hr IV . Q24H [facility] Rx#:[id number] Intake, IV Titration 59.524 Amount Insulin Regular 100 unit 20.293 In Sodium Chloride 0.9% 100 ml @ Per Protocol IV .Q0M [facility] Rx#:[id number] Milrinone-D5w Pmx 20 mg 39.231 In Dextrose/Water 1 100ml .bag @ 0.2 MCG/KG/MIN 5. 106 mls/hr IV .[id number] [facility] Rx#:[id number] Oral 560 800 320 Output: Chest Tube Drainage 90 60 0 Lt pleural 50 20 0 Mediastinal 40 40 0 Urine 275 355 175 Other: Voiding Method Indwelling Catheter Indwelling Catheter Indwelling Catheter ABP, PAP, CO, CI - Last Documented Arterial Blood Pressure 100/40 Pulmonary Artery Pressure 33/10 Cardiac Output 3.6 Cardiac Index 1.8 - Labs CBC & Chem 7: 02/18/24 05:15 02/18/24 05:15 Labs: Abnormal Lab Results - Last 24 Hours (Table) 02/17/24 02/17/24 02/17/24 Range/Units 16:12 20:11 21:09 RBC (4.30-5.90) m/uL Hgb (13.0-17.5) gm/dL Hct (39.0-53.0) % RDW (11.5-15.5) % Plt Count (150-450) k/uL Sodium (137-145) mmol/L Chloride (98-107) mmol/L Carbon Dioxide (22-30) mmol/L BUN (9-20) mg/dL Creatinine (0.66-1.25) mg/dL Glucose (74-99) mg/dL POC Glucose (mg/dL) 212 H 221 H 215 H (70-110) mg/dL Calcium (8.4-10.2) mg/dL AST (17-59) U/L Total Protein (6.3-8.2) g/dL Albumin (3.5-5.0) g/dL 02/18/24 02/18/24 02/18/24 Range/Units 05:15 05:15 06:30 RBC 2.50 L (4.30-5.90) m/uL Hgb 7.3 L (13.0-17.5) gm/dL Hct 23.3 L (39.0-53.0) % RDW 17.8 H (11.5-15.5) % Plt Count 132 L (150-450) k/uL Sodium 135 L (137-145) mmol/L Chloride 111 H (98-107) mmol/L Carbon Dioxide 18 L (22-30) mmol/L BUN 33 H (9-20) mg/dL Creatinine 1.78 H (0.66-1.25) mg/dL Glucose 136 H (74-99) mg/dL POC Glucose (mg/dL) 162 H (70-110) mg/dL Calcium 8.3 L (8.4-10.2) mg/dL AST 110 H (17-59) U/L Total Protein 4.9 L (6.3-8.2) g/dL Albumin 3.0 L (3.5-5.0) g/dL 02/18/24 Range/Units 11:12 RBC (4.30-5.90) m/uL Hgb (13.0-17.5) gm/dL Hct (39.0-53.0) % RDW (11.5-15.5) % Plt Count (150-450) k/uL Sodium (137-145) mmol/L Chloride (98-107) mmol/L Carbon Dioxide (22-30) mmol/L BUN (9-20) mg/dL Creatinine (0.66-1.25) mg/dL Glucose (74-99) mg/dL POC Glucose (mg/dL) 183 H (70-110) mg/dL Calcium (8.4-10.2) mg/dL AST (17-59) U/L Total Protein (6.3-8.2) g/dL Albumin (3.5-5.0) g/dL
[2024-02-18 16:05] LABS: Glucose,Whole Blood 172 mg/dL (70-110)
[2024-02-18 20:43] LABS: Glucose,Whole Blood 192 mg/dL (70-110)
[2024-02-18] MEDS: INSULIN ASPART (NovoLOG) 100 UNIT/ML VIAL SQ SCH (20:49)
[2024-02-19 03:48] LABS: Anisocytosis Slight; Basophils % (A) 0 %; Eosinophils % (A) 1 %; HCT 22.5 % (39.0-53.0); Hypochromasia Marked; Lymphocytes # (A) 0.8 k/uL (1.0-4.8); Lymphocytes % (A) 15 %; MCH 29.6 pg (25.0-35.0); MCHC 31.3 g/dL (31.0-37.0); MCV 94.4 fL (80.0-100.0); Macrocytosis Slight; Mean Platelet Volume 8.9; Monocytes # (A) 0.3 k/uL (0-1.0); Monocytes % (A) 5 %; Neutrophils # (A) 4.5 k/uL (1.3-7.7); Neutrophils % (A) 78 %; Platelet Count 132 k/uL (150-450); Poikilocytosis Slight; RBC 2.38 m/uL (4.30-5.90); RDW 18.2 % (11.5-15.5); WBC 5.7 k/uL (3.8-10.6)
[2024-02-19 03:56] LABS: ALT 34 U/L (4-49); AST 68 U/L (17-59); African American GFR (CKD) 32 (>60 ml/min/1.73 sqM); Albumin 2.9 g/dL (3.5-5.0); Alkaline Phosphatase 102 U/L (38-126); Anion Gap 8 mmol/L; Blood Urea Nitrogen 46 mg/dL (9-20); Calcium 8.1 mg/dL (8.4-10.2); Carbon Dioxide 18 mmol/L (22-30); Chloride 109 mmol/L (98-107); Glucose 114 mg/dL (74-99); Non-African American GFR(CKD) 28 (>60 ml/min/1.73 sqM); Potassium 3.7 mmol/L (3.5-5.1); Sodium 135 mmol/L (137-145); Total Bilirubin 1.2 mg/dL (0.2-1.3); Total Protein 4.8 g/dL (6.3-8.2)
[2024-02-19] MEDS: POTASSIUM CHLORIDE ER 20 MEQ TAB.ER PO SCH (05:33)
[2024-02-19 06:44] LABS: Glucose,Whole Blood 154 mg/dL (70-110)
[2024-02-19 09:08] LABS: Prealbumin 6.8 mg/dL (18.0-42.0)
[2024-02-19] MEDS: ASCORBIC ACID 500 MG TAB PO SCH (09:33)
[2024-02-19] MEDS: FERROUS SULFATE 325 MG TAB PO SCH (09:34)
[2024-02-19] MEDS: hydrALAZINE HCL 25 MG TAB PO SCH (09:35)
[2024-02-19] MEDS: POTASSIUM BICARBONATE/CIT AC 20 MEQ TABLET.EFF PO SCH (09:36)
--- NOTE | 2024-02-19 09:36 | XR ---
EXAMINATION TYPE: XR chest 2V DATE OF EXAM: 02/19/2024 5:20 AM CLINICAL INDICATION: Male, 78 years old with history of post op CABG/MVR; COMPARISON: Chest radiographs from 02/18/2024 TECHNIQUE: XR chest 2V Frontal view of the chest. FINDINGS: Lungs/Pleura: There is no evidence of pleural effusion, focal consolidation, or pneumothorax. Pulmonary vascularity: Unremarkable. Heart/mediastinum: Cardiomediastinal silhouette is unremarkable. Musculoskeletal: No acute osseous pathology. Midline sternotomy wires are noted. Other findings: None IMPRESSION: Improved aeration of the lungs on today's exam. Removal of support tubes. No evidence for pneumothora x.
--- NOTE | 2024-02-19 09:59 | P.PN ---
Subjective Progress Note Date: 02/19/24 Principal diagnosis: Severe mitral valve regurgitation, acute on chronic heart failure with reduced ejection fraction, coronary artery disease with previous NSTEMI, and paroxysmal atrial fibrillation. Previous medical history of hypertension, anemia without any evidence of acute GI bleed status post upper and lower endoscopy, diabetes mellitus type 2, chronic kidney disease stage III-IV, previous tobacco dependence, mild obstructive lung disease, obstructive sleep apnea with home cpap use, obesity, prostate cancer status post 45 radiation treatments more than 5 years ago, frequent diarrhea POD #4 Coronary artery bypass grafting x 3 with left internal mammary artery to the left anterior descending coronary artery, sequential saphenous vein graft to first and second obtuse marginal coronary arteries, endovascular vein harvest left leg, mitral valve repair with 28 mm annular flex band, percutaneous placement of intra-aortic balloon pump via right common femoral artery, modified Mayer-Maze with complete left-sided lesion set using radiofrequency and cryoablation both epicardial and intracardiac, and ligation of the left atrial appendage with 2 layer suture closure. Postoperative acute blood loss anemia, expected given cardiopulmonary bypass, hemodilution and preoperative history of anemia. The patient was seen and examined this morning sitting up A recliner in the intensive care unit in no acute distress. He denies pain or shortness of breath at this time. He has been able to cough up thick yellow sputum which will be sent for culture. He ambulated in the hallway short distancesseveral times yesterdayWith assistance. Labs, chest x-ray reviewed. While sleeping he does continue to pace, otherwise he is in sinus rhythm with first-degree AV block and bundle branch block with heart rate in the mid 60s. Systolic blood pressures have remained in the high 90s to low 100s with mean arterial pressures in the 70s to 80s.Remains on room air with oxygen saturation in the mid 90s, able to achieve 1250 mL on his incentive spirometry. Objective - Vital Signs Vital signs: Vital Signs Temp 97.5 F L 02/19/24 04:00 Pulse 64 02/19/24 07:40 Resp 23 02/19/24 07:00 BP 117/69 02/19/24 07:00 Pulse Ox 97 02/19/24 07:29 FiO2 40 02/16/24 10:06 Intake & Output 02/18/24 02/19/24 02/19/24 18:59 06:59 18:59 Intake Total 668 450 Output Total 355 490 5 Balance 313 -40 -5 Weight 96.8 kg Intake: IV 108 Pressure Bags 18 Sodium Chloride 0.9% 1, 90 000 ml @ 30 mls/hr IV . Q24H [facility] Rx#:[id number] Oral 560 450 Output: Chest Tube Drainage 0 Lt pleural 0 Mediastinal 0 Urine 355 490 5 Other: Voiding Method Indwelling Catheter Indwelling Catheter ABP, PAP, CO, CI - Last Documented Arterial Blood Pressure 100/40 Pulmonary Artery Pressure 33/10 Cardiac Output 3.6 Cardiac Index 1.8 - Exam CONSTITUTIONAL: Appears comfortable, cooperative, no acute distress RESPIRATORY: Lungs sounds course bilaterally. Respirations even, nonlabored. Currently on room air with oxygen saturation 94%. Able to achieve 1250 mL on incentive spirometry. Strong productive cough with thick yellow sputum. CARDIOVASCULAR: S1, S2 present. Regular rate and rhythm, sinus rhythm with first degree AV block and bundle branch block on telemetry. Sternum stable. Palpable peripheral pulses bilaterally. Trace generalized edema present. No calf pain or tenderness noted. Heart hugger in place with patient demonstrating appropriate use. Antiembolism stockings, SCDs present. GASTROINTESTINAL: Abdomen soft, nontender, nondistended. Active bowel sounds present 4 quadrants. Tolerating minimal diet. Positive flatus, no bowel movement since surgery GENITOURINARY: Jones present draining clear, yellow urine. Output overnight 20-75 mL per hour, 845 mL in the last 24 hours INTEGUMENTARY: Skin is warm and dry. Anterior chest incision well approximated and covered with dry intact dressing. Left lower extremity EVH site well approximated without redness or drainage. NEUROLOGIC: Cranial nerves II through XII intact MUSKULOSKELETAL: Able to move all extremities, strength equal bilaterally, generalized weakness present PSYCHIATRIC: Alert and oriented to person place and time, appropriate affect, intact judgment and insight INVASIVE LINES AND TUBES: A/V epicardial pacemaker wires present, connected to generator, backup rate 50 bpm - Allied health notes Allied health notes reviewed: nursing - Labs CBC & Chem 7: 02/19/24 03:04 02/19/24 03:04 Labs: Abnormal Lab Results - Last 24 Hours (Table) 02/18/24 02/18/24 02/18/24 Range/Units 11:12 16:03 20:41 RBC (4.30-5.90) m/uL Hgb (13.0-17.5) gm/dL Hct (39.0-53.0) % RDW (11.5-15.5) % Plt Count (150-450) k/uL Lymphocytes # (1.0-4.8) k/uL Sodium (137-145) mmol/L Chloride (98-107) mmol/L Carbon Dioxide (22-30) mmol/L BUN (9-20) mg/dL Creatinine (0.66-1.25) mg/dL Glucose (74-99) mg/dL POC Glucose (mg/dL) 183 H 172 H 192 H (70-110) mg/dL Calcium (8.4-10.2) mg/dL AST (17-59) U/L Total Protein (6.3-8.2) g/dL Albumin (3.5-5.0) g/dL 02/19/24 02/19/24 02/19/24 Range/Units 03:04 03:04 06:42 RBC 2.38 L (4.30-5.90) m/uL Hgb 7.0 L (13.0-17.5) gm/dL Hct 22.5 L (39.0-53.0) % RDW 18.2 H (11.5-15.5) % Plt Count 132 L (150-450) k/uL Lymphocytes # 0.8 L (1.0-4.8) k/uL Sodium 135 L (137-145) mmol/L Chloride 109 H (98-107) mmol/L Carbon Dioxide 18 L (22-30) mmol/L BUN 46 H (9-20) mg/dL Creatinine 2.17 H (0.66-1.25) mg/dL Glucose 114 H (74-99) mg/dL POC Glucose (mg/dL) 154 H (70-110) mg/dL Calcium 8.1 L (8.4-10.2) mg/dL AST 68 H (17-59) U/L Total Protein 4.8 L (6.3-8.2) g/dL Albumin 2.9 L (3.5-5.0) g/dL - Imaging and Cardiology Chest x-ray: image reviewed Assessment and Plan Assessment: Severe mitral valve regurgitation, status post mitral valve repair Acute on chronic heart failure with reduced ejection fraction, EF 25-30%, status post intra-aortic balloon pump Coronary artery disease with previous NSTEMI, status post three-vessel CABG Paroxysmal atrial fibrillation, status post modified mayer maze and ligation of the left atrial appendage Postoperative acute blood loss anemia, expected given cardiopulmonary bypass, hemodilution and preoperative history of anemia Transaminitis, resolved Medical debility History of hypertension Anemia without any evidence of acute GI bleed status post upper and lower endoscopy Diabetes mellitus type 2, preoperative hemoglobin A1c 9.3% Chronic kidney disease stage III-IV, preoperative creatinine 2.24 Previous tobacco dependence Mild obstructive lung disease, preoperative FEV1 63% of predicted Obstructive sleep apnea with home cpap use Obesity Prostate cancer status post 45 radiation treatments more than 5 years ago Frequent diarrhea Plan: Continue to maximize medical therapy with aspirin, Plavix. Continue to hold metoprolol tartrate at this time. Will restart statin. Decrease hydralazine to 25 mg twice a day with hold parameters Encourage incentive spirometry use 10 times every hour while awake. Bronchodilators per pulmonology. Continue Mucinex, Mucomyst nebulizer and Symbicort. Will send sputum culture, no antibiotics at this point Will monitor daily labs and chest x-rays. Electrolyte replacement per protocol. Continue Lasix, potassium supplementation Increase activity, ambulate as tolerated. PT/OT/cardiac rehab following. Patient walks with a walker at home Pain control per current medication regimen Avoid nephrotoxic agents Continue home dose of Nephrocaps Insulin management per internal medicine Continue Jones catheter for another 24 hours, continue to record strict accurate intake and output Daily weights Shower daily Ground epicardial pacemaker wires Will give suppository PM&R physicians consulted for possible IPR at discharge, await recommendations Keeping in ICU for another 24 hours More recommendations to follow based on patient's clinical course
--- NOTE | 2024-02-19 10:11 | P.PN ---
Subjective Patient is seen in follow-up for chronic kidney disease. Sitting up in chair. On nasal cannula. Denies chest pain or shortness of breath. Renal function worse from diuresis. Now on room air. Chest tubes removed. Vital signs are stable. General: No acute distress. HEENT: Head exam is unremarkable. On room air. LUNGS: No audible rhonchi or wheezes. HEART: Rate and Rhythm are regular. ABDOMEN: Nontender. EXTREMITITES: No edema. Objective - Vital Signs Vital signs: Vital Signs Temp 97.6 F 02/19/24 08:00 Pulse 65 02/19/24 08:00 Resp 25 H 02/19/24 08:00 BP 105/62 02/19/24 08:00 Pulse Ox 95 02/19/24 08:00 FiO2 40 02/16/24 10:06 Intake & Output 02/18/24 02/19/24 02/19/24 18:59 06:59 18:59 Intake Total 668 450 Output Total 355 490 35 Balance 313 -40 -35 Weight 96.8 kg Intake: IV 108 Pressure Bags 18 Sodium Chloride 0.9% 1, 90 000 ml @ 30 mls/hr IV . Q24H [facility] Rx#:[id number] Oral 560 450 Output: Chest Tube Drainage 0 Lt pleural 0 Mediastinal 0 Urine 355 490 35 Other: Voiding Method Indwelling Catheter Indwelling Catheter ABP, PAP, CO, CI - Last Documented Arterial Blood Pressure 100/40 Pulmonary Artery Pressure 33/10 Cardiac Output 3.6 Cardiac Index 1.8 - Labs CBC & Chem 7: 02/19/24 03:04 02/19/24 03:04 Labs: Abnormal Lab Results - Last 24 Hours (Table) 02/18/24 02/18/24 02/18/24 Range/Units 11:12 16:03 20:41 RBC (4.30-5.90) m/uL Hgb (13.0-17.5) gm/dL Hct (39.0-53.0) % RDW (11.5-15.5) % Plt Count (150-450) k/uL Lymphocytes # (1.0-4.8) k/uL Sodium (137-145) mmol/L Chloride (98-107) mmol/L Carbon Dioxide (22-30) mmol/L BUN (9-20) mg/dL Creatinine (0.66-1.25) mg/dL Glucose (74-99) mg/dL POC Glucose (mg/dL) 183 H 172 H 192 H (70-110) mg/dL Calcium (8.4-10.2) mg/dL AST (17-59) U/L Total Protein (6.3-8.2) g/dL Albumin (3.5-5.0) g/dL Prealbumin (18.0-42.0) mg/dL 02/19/24 02/19/24 02/19/24 Range/Units 03:04 03:04 06:42 RBC 2.38 L (4.30-5.90) m/uL Hgb 7.0 L (13.0-17.5) gm/dL Hct 22.5 L (39.0-53.0) % RDW 18.2 H (11.5-15.5) % Plt Count 132 L (150-450) k/uL Lymphocytes # 0.8 L (1.0-4.8) k/uL Sodium 135 L (137-145) mmol/L Chloride 109 H (98-107) mmol/L Carbon Dioxide 18 L (22-30) mmol/L BUN 46 H (9-20) mg/dL Creatinine 2.17 H (0.66-1.25) mg/dL Glucose 114 H (74-99) mg/dL POC Glucose (mg/dL) 154 H (70-110) mg/dL Calcium 8.1 L (8.4-10.2) mg/dL AST 68 H (17-59) U/L Total Protein 4.8 L (6.3-8.2) g/dL Albumin 2.9 L (3.5-5.0) g/dL Prealbumin 6.8 L (18.0-42.0) mg/dL Assessment and Plan Plan: Assessment: 1. Chronic kidney disease stage IIIb secondary to diabetic kidney disease with baseline creatinine 1.5-2. 2. Coronary artery disease status post CABG x 3 and mitral valve repair February 15, 2024. 3. Diabetes mellitus. 4. Anemia of chronic kidney disease with component of acute blood loss post CAB G. on Aranesp. 5. Metabolic acidosis secondary to chronic kidney disease and IV fluids. On oral bicarb. 6. Chronic systolic CHF. 7. Mild volume overload. On IV Lasix. 8. Acute kidney injury secondary to vasomotor nephropathy from diuresis. Creatinine 2.17 today. Plan: Discussed with cardiothoracic surgery team to decrease frequency of Lasix to 20 mg twice daily. Encourage oral intake. Continue to monitor renal function and urine output. Discontinued magnesium supplementation. Check iron studies. Defer blood transfusion to CTS team.
--- NOTE | 2024-02-19 11:03 | P.PN ---
Subjective Progress Note Date: 02/19/24 Patient is an 78-year-old male with a past medical history of A-fib anticoagulated with Eliquis, hypertension, diabetes mellitus type 2, prostate cancer. He is postop day 3 of coronary artery bypass grafting x 3 with POSADA to LAD, sequential saphenous vein graft to first and second obtuse marginal coronar y arteries, endovascular vein harvest, mitral valve repair with 28 mm annular flex band, percutaneous placement of intra-aortic balloon pump via right common femoral artery, modified Vazquez-Maze with complete left-sided lesion set using RF and cryoablation both epi and intracardiac, and ligation of the left atrial appendage with 2 layer suture closure. Balloon pump removed. Patient is seen sitting in chair at bedside. He is in normal sinus rhythm and hemodynamically stable. Currently pacing on h is own. Patient has improved discomfort at the incision sites. He states that his breathing has improved but endorses a cough with sputum. ROS performed. Pertinent positives and negatives as documented above, all other systems negative. Objective - Vital Signs Vital signs: Vital Signs Temp 97.5 F L 02/19/24 04:00 Pulse 65 02/19/24 07:00 Resp 23 02/19/24 07:00 BP 117/69 02/19/24 07:00 Pulse Ox 95 02/19/24 07:00 FiO2 40 02/16/24 10:06 Intake & Output 02/18/24 02/19/24 02/19/24 18:59 06:59 18:59 Intake Total 668 450 Output Total 355 490 5 Balance 313 -40 -5 Weight 96.8 kg Intake: IV 108 Pressure Bags 18 Sodium Chloride 0.9% 1, 90 000 ml @ 30 mls/hr IV . Q24H [facility] Rx#:[id number] Oral 560 450 Output: Chest Tube Drainage 0 Lt pleural 0 Mediastinal 0 Urine 355 490 5 Other: Voiding Method Indwelling Catheter Indwelling Catheter ABP, PAP, CO, CI - Last Documented Arterial Blood Pressure 100/40 Pulmonary Artery Pressure 33/10 Cardiac Output 3.6 Cardiac Index 1.8 - Exam Vital signs are stable. General: No acute distress. HEENT: Head exam is unremarkable. No JVD present. Lungs: Coarse breath sounds bilaterally. Heart: Rate and rhythm are regular. S1S2 present. Abdomen: Soft, nontender. Extremities: No edema present. - Labs CBC & Chem 7: 02/19/24 03:04 02/19/24 03:04 Labs: Abnormal Lab Results - Last 24 Hours (Table) 02/18/24 02/18/24 02/18/24 Range/Units 05:15 11:12 16:03 RBC (4.30-5.90) m/uL Hgb (13.0-17.5) gm/dL Hct (39.0-53.0) % RDW (11.5-15.5) % Plt Count (150-450) k/uL Lymphocytes # (1.0-4.8) k/uL Sodium 135 L (137-145) mmol/L Chloride 111 H (98-107) mmol/L Carbon Dioxide 18 L (22-30) mmol/L BUN 33 H (9-20) mg/dL Creatinine 1.78 H (0.66-1.25) mg/dL Glucose 136 H (74-99) mg/dL POC Glucose (mg/dL) 183 H 172 H (70-110) mg/dL Calcium 8.3 L (8.4-10.2) mg/dL AST 110 H (17-59) U/L Total Protein 4.9 L (6.3-8.2) g/dL Albumin 3.0 L (3.5-5.0) g/dL 02/18/24 02/19/24 02/19/24 Range/Units 20:41 03:04 03:04 RBC 2.38 L (4.30-5.90) m/uL Hgb 7.0 L (13.0-17.5) gm/dL Hct 22.5 L (39.0-53.0) % RDW 18.2 H (11.5-15.5) % Plt Count 132 L (150-450) k/uL Lymphocytes # 0.8 L (1.0-4.8) k/uL Sodium 135 L (137-145) mmol/L Chloride 109 H (98-107) mmol/L Carbon Dioxide 18 L (22-30) mmol/L BUN 46 H (9-20) mg/dL Creatinine 2.17 H (0.66-1.25) mg/dL Glucose 114 H (74-99) mg/dL POC Glucose (mg/dL) 192 H (70-110) mg/dL Calcium 8.1 L (8.4-10.2) mg/dL AST 68 H (17-59) U/L Total Protein 4.8 L (6.3-8.2) g/dL Albumin 2.9 L (3.5-5.0) g/dL 02/19/24 Range/Units 06:42 RBC (4.30-5.90) m/uL Hgb (13.0-17.5) gm/dL Hct (39.0-53.0) % RDW (11.5-15.5) % Plt Count (150-450) k/uL Lymphocytes # (1.0-4.8) k/uL Sodium (137-145) mmol/L Chloride (98-107) mmol/L Carbon Dioxide (22-30) mmol/L BUN (9-20) mg/dL Creatinine (0.66-1.25) mg/dL Glucose (74-99) mg/dL POC Glucose (mg/dL) 154 H (70-110) mg/dL Calcium (8.4-10.2) mg/dL AST (17-59) U/L Total Protein (6.3-8.2) g/dL Albumin (3.5-5.0) g/dL Assessment and Plan Assessment: 1. Severe mitral valve regurgitation, status post mitral valve repair with 28 mm annular flex band. 2. Coronary artery disease status post coronary artery bypass grafting x 3 with left internal mammary artery to the left anterior sending coronary artery. 3. Needs further workup get surgery. Persistent paroxysmal atrial fibrillation status post modified Vazquez-Maze with complete left-sided lesion set using radiofrequency and cryoablation both epicardial and intracardiac, and ligation of the left atrial appendage with 2 layer suture closure. 4. Acute on chronic congestive heart failure with reduced ejection fraction; EF 25 to 30%, status post percutaneous placement of intra-aortic balloon pump via right common femoral artery, and subsequent removal of intra-aortic balloon pump on 02/16/2024. 5. History of hypertension. 6. Bradycardia. 7. Chronic kidney disease stage IIIb, with a preoperative creatinine of 2.24. 8. Diabetes mellitus type 2. 9. Prostate cancer status post radiation treatment several years ago. 10. History remote history of nicotine dependence quit smoking 45 years ago. Plan: Continue current medication plan as per cardiothoracic surgery. No further recommendations at this time.
[2024-02-19 11:30] LABS: Glucose,Whole Blood 190 mg/dL (70-110)
--- NOTE | 2024-02-19 11:52 | P.PN ---
Subjective Progress Note Date: 02/19/24 Patient is a-year-old white male with past medical history significant for prostate cancer, diabetes mellitus, hypertension, angina, atrial fibrillation normally anticoagulated on Eliquis. Of note, patient had a recent hospitalization 12/24/2023 where he did have an extensive cardiac workup. He was found to have multivessel coronary artery disease and severe mitral regurgitation. Cardiac cath done on 12/28/2023 demonstrates 80% mid LAD stenosis, 90% mid OM2 disease, and moderate diffuse disease in the PDA. Cardiothoracic team was asked to evaluate this patient up for potential open heart surgery. Echocardiogram done the same admission showed a left ventricular ejection fraction estimated at 25 to 30%, as well as, moderate to severe mitral valve regurgitation. Patient underwent open heart surgery yesterday 02/15/2024 including coronary artery bypass grafting x 3 with POSADA to LAD, sequential saphenous vein graft to first and second obtuse marginal coronary arteries, mitral valve repair with 28 mm annular flex band, modified Vazquez-Maze with completed left sided lesion set using RF and cryoablation, ligation of left atrial appendage, and percutaneous placement of intra-aortic balloon pump. Patient was transferred to the intensive care unit postoperatively in critical condition. Or exit time documented at 1430. He did have a 2 L EBL. Status post 4 units PRBC, 2 FFP, 2 platelets, 1.5 L albumin, and 1200 mL Cell Saver. He remains intubated to mechanical ventilator. Postoperative chest x-ray shows mild pulmonary congestion and cardiomegaly, no pneumothorax. Endotracheal tube 2.6 cm above the clark. NG tube courses below the diaphragm. [place]-Julius catheter with tip projecting over the spine, mediastinal and left thoracotomy tubes in place. Postoperative ABG PaO2 204, pCO2 40, pH 7.36. Current ventilator settings including assist-control, respiratory rate 14, tidal volume 500, FiO2 50%, PEEP of 5. Peak pressure 22, no significant airway secretions. Patient is lightly sedated on propofol which is currently infusing at 50 mcg/kg/min. He does awaken to verbal stimuli, follows all commands, moves all 4 extremities equally. Reportedly has not been extubated at this point, due to increased vasopressor requirements. He is on a one-to-one balloon pump with augmented pressure of 87 mean pressure 65. CI 2.4/CO 4.8. Pulmonary artery pressure 47/22. CVP 14. Milrinone infusing at 0.2 mcg/kg/min. Norepinephrine infusing at 0.04 mcg/kg/min. Normal saline also infusing at 50 mL/h. Insulin per protocol. He does have an epicardial pacemaker wires, currently DDI settings at a rate of 80 bpm. Patient does have 2 mediastinal chest tubes hooked to an atrium with 470 mL of serosanguineous output at this point in time. Left pleural chest tube has a total of 180 mL of serosanguineous output. These are both to negative 20 cm H2O suction. No obvious air leak. Urinary catheter is in place, draining adequate urine output in the order of 30 to 40 mL/h. Most recent CBC: WBC count 5.9, hemoglobin 8, hematocrit 24.8, platelets 127. Coagulation profile including PT 13.6, INR 1.3, APTT 28.6, fibrinogen 215. CMP: Sodium 141, potassium 3.9, chloride 111, serum bicarb 23, BUN 33, creatinine 1.56, glucose 149. Ionized calcium 5. AST 194, ALT 95, ALP 56. Plan is to pursue extubation later this morning. The patient is seen today February 17, 2024 in follow-up in the intensive care unit. Postoperative day #2. He is currently sitting [facility]. Awake and alert in no acute distress. Chest x-ray continues to show some atelectasis and small effusions bilaterally. He is a good encouraged regarding the increased use of the incentive spirometer. Cardiac output 6.1. Cardiac index 3.1. He is on normal saline at 30 mL/h. Primacor was discontinued this morning. He remains on insulin drip at 6 units/h. Mediastinal and left chest tubes remain in place. White count 10.0. Hemoglobin 7.3. Platelets 116. Sodium 140. Potassium 3.9. Bicarb 22. BUN 26. Creatinine 1.68. Glucose 123. He remains on DuoNeb inhalations, Symbicort, Mucinex. Heparin for DVT prophylaxis. The patient is seen today February 18, 2024 in follow-up in the intensive care unit. Postoperative day #3. He is awake and alert in no acute distress. Maintaining good O2 saturations in the mid 90s on room air. He is afebrile. Hemodynamically stable. Sitting up in a chair at the bedside. He has been on several walks yesterday and earlier today. He is doing well. Working well with the incentive spirometer. No worsening shortness of breath, cough or congestion. This x-ray continues to show mild pulmonary edema. Mediastinal and left chest tubes in place. Cordis in place. He has normal saline at 30 mL/h. White count 8.4. Hemoglobin 7.3. Platelets 132. Sodium 135. Potassium 4.3. Bicarb 18. BUN 33. Creatinine 1.78. Glucose 136. AST 110. ALT 44. He remains on DuoNeb inhalations. Heparin for DVT prophylaxis. He remains on Lasix 20 mg IV every 8 hours. He is currently in a +1.5 L balance. The patient is seen today February 19, 2024 in follow-up in the intensive care unit. Postoperative day #4. He is currently sitting up in a chair. Awake and alert in no acute distress. Maintaining O2 saturations in the 90s on room air. No IV fluids. His chest x-ray is showing improvement in the pulmonary congestion. He is doing better with the incentive spirometer currently pulling 1250 mL. He remains on IV diuretics. In a positive balance still. He is continued on bronchodilators. Heparin for DVT prophylaxis. White count 5.7. Hemoglobin 7.0. Platelets 132. Sodium 135. Potassium 3.7. Bicarb 18. BUN 46. Creatinine 2.17. Glucose 114. Objective - Vital Signs Vital signs: Vital Signs Temp 97.6 F 02/19/24 08:00 Pulse 72 02/19/24 11:35 Resp 23 02/19/24 11:00 BP 117/69 02/19/24 11:00 Pulse Ox 95 02/19/24 11:00 FiO2 40 02/16/24 10:06 Intake & Output 02/18/24 02/19/24 02/19/24 18:59 06:59 18:59 Intake Total 668 450 500 Output Total 355 490 300 Balance 313 -40 200 Weight 96.8 kg Intake: IV 108 Pressure Bags 18 Sodium Chloride 0.9% 1, 90 000 ml @ 30 mls/hr IV . Q24H JAYLEN Rx#:[id number] Oral 560 450 500 Output: Chest Tube Drainage 0 Lt pleural 0 Mediastinal 0 Urine 355 490 300 Other: Voiding Method Indwelling Catheter Indwelling Catheter Indwelling Catheter ABP, PAP, CO, CI - Last Documented Arterial Blood Pressure 100/40 Pulmonary Artery Pressure 33/10 Cardiac Output 3.6 Cardiac Index 1.8 - Exam GENERAL EXAM: Awake, pleasant 78-year-old male patient, on room air, up in a chair, comfortable in no acute distress. HEAD: Normocephalic and atraumatic EYES: Normal reaction of pupils, equal size. NOSE: Clear with pink turbinates. THROAT: No erythema or exudates. NECK: No masses, no JVD. CHEST: Midstern incision dressed with postoperative dressing clean, dry, intact. LUNGS: Equal air entry with no crackles, wheeze, rhonchi or dullness. CVS: S1 and S2 normal with no audible murmur, regular rhythm. ABDOMEN: No hepatosplenomegaly, active bowel sounds, no guarding or rigidity. SPINE: No scoliosis or deformity SKIN: No rashes CENTRAL NERVOUS SYSTEM: No focal deficits, tone is normal in all 4 extremities. EXTREMITIES: Distal pulses intact. Legs with sequential compression devices. - Labs CBC & Chem 7: 02/19/24 03:04 02/19/24 03:04 Labs: Abnormal Lab Results - Last 24 Hours (Table) 02/18/24 02/18/24 02/19/24 Range/Units 16:03 20:41 03:04 RBC 2.38 L (4.30-5.90) m/uL Hgb 7.0 L (13.0-17.5) gm/dL Hct 22.5 L (39.0-53.0) % RDW 18.2 H (11.5-15.5) % Plt Count 132 L (150-450) k/uL Lymphocytes # 0.8 L (1.0-4.8) k/uL Sodium (137-145) mmol/L Chloride (98-107) mmol/L Carbon Dioxide (22-30) mmol/L BUN (9-20) mg/dL Creatinine (0.66-1.25) mg/dL Glucose (74-99) mg/dL POC Glucose (mg/dL) 172 H 192 H (70-110) mg/dL Calcium (8.4-10.2) mg/dL AST (17-59) U/L Total Protein (6.3-8.2) g/dL Albumin (3.5-5.0) g/dL Prealbumin (18.0-42.0) mg/dL 02/19/24 02/19/24 02/19/24 Range/Units 03:04 06:42 11:28 RBC (4.30-5.90) m/uL Hgb (13.0-17.5) gm/dL Hct (39.0-53.0) % RDW (11.5-15.5) % Plt Count (150-450) k/uL Lymphocytes # (1.0-4.8) k/uL Sodium 135 L (137-145) mmol/L Chloride 109 H (98-107) mmol/L Carbon Dioxide 18 L (22-30) mmol/L BUN 46 H (9-20) mg/dL Creatinine 2.17 H (0.66-1.25) mg/dL Glucose 114 H (74-99) mg/dL POC Glucose (mg/dL) 154 H 190 H (70-110) mg/dL Calcium 8.1 L (8.4-10.2) mg/dL AST 68 H (17-59) U/L Total Protein 4.8 L (6.3-8.2) g/dL Albumin 2.9 L (3.5-5.0) g/dL Prealbumin 6.8 L (18.0-42.0) mg/dL Assessment and Plan Assessment: Postoperative day #4 following coronary artery bypass grafting x 3 with POSADA to LAD, sequential saphenous vein graft to first and second obtuse marginal coronary arteries, mitral valve repair with 28 mm annular flex band, modified Vazquez-Maze with completed left sided lesion set using RF and cryoablation, ligation of left atrial appendage, and percutaneous placement of intra-aortic balloon pump. Balloon pump removed. Routine mechanical ventilator management and subsequent extubation. Today's chest x-ray shows mild pulmonary congestion and cardiomegaly, no pneumothorax. Mediastinal and left thoracotomy tubes in place. Multivessel coronary artery disease History of severe mitral valve regurgitation Acute blood loss anemia, expected outcome of surgery, Status post 4 units PRBC, 2 FFP, 2 platelets, 1.5 L albumin, and 1200 mL Cell Saver. Acute kidney injury, secondary to hypotension and ATN Diabetes mellitus type 2 History of atrial fibrillation, normally anticoagulated on Eliquis, status post synchronized cardioversion on 12/31/2023 History of hypertension Former tobacco smoker History of prostate cancer with previous radiation Plan: The patient was seen and evaluated Chest x-ray, labs and medications reviewed Currently stable and on room air Continue the current treatment plan Increase his activity as tolerated We will continue to follow I have personally seen and examined the patient, performed the documentation and the assessment and plan as written. Number of minutes spent on the visit: 10.
--- NOTE | 2024-02-19 12:34 | P.CONS ---
History of Present Illness - Reason for Consult Consult date: 02/18/24 rehab recommendations - Chief Complaint s/ CABG - History of Present Illness Mr Warren is an 78 y/o right handed male who lives with his in a SS home with 3 CORY with unilateral handrail. Prior to admission patient was independent with mobility and ADLs using a two wheeled walker. His drives. He has multiple family and friends that live local and are able to assist as well as his is available 12/01. Patient with a past medical history significant for prostate cancer, diabetes mellitus, hypertension, angina, atrial fibrillation normally anticoagulated on Eliquis. Patient recent had an extensive cardiac workup, found to have multivessel coronary artery disease and severe mitral regurgitation. Cardiac cath done on 12/28/2023 demonstrates 80% mid LAD stenosis, 90% mid OM2 disease, and moderate diffuse disease in the PDA. Cardiothoracic team was asked to evaluate this patient for potential open heart surgery. Echocardiogram done the same admission showed a left ventricular ejection fraction estimated at 25 to 30%, as well as, moderate to severe mitral valve regurgitation. Patient underwent open heart surgery on 02/15/2024 including coronary artery bypass grafting x 3 with POSADA to LAD, sequential saphenous vein graft to first and second obtuse marginal coronary arteries, mitral valve repair with 28 mm annular flex band, modified Vazquez-Maze with completed left sided lesion set using RF and cryoablation, ligation of left atrial appendage, and percutaneous placement of intra-aortic balloon pump. Patient was transferred to the intensive care unit postoperatively in critical condition. He did have a 2 L EBL Status post 4 units PRBC, 2 FFP, 2 platelets, 1.5 L albumin, and 1200 mL Cell Saver. Postoperative chest x-ray shows mild pulmonary congestion and cardiomegaly, no pneumothorax. Endotracheal tube 2.6 cm above the clark. NG tube courses below the diaphragm. [place]-Julius catheter with tip projecting over the spine, mediastinal and left thoracotomy tubes in place. His extubation was delayed due to increased vasopressor requirements, eventually was able to be extubated. On 02/17 Chest x- ray continues to show mild pulmonary edema. PM&R consulted for rehab recommendations. Patient was seen by PT, able to transfer and ambulate min to mod assist, 25 ft before needing rest break. OT evaluations pending. 02/18/24. Patient states that overall he's feeling tired, does have some wheezing and a little short of breath. He denies chest or incisional pain, denies abdominal pain. He reports that he has not had bowel movement in a couple of days. He has a Jones catheter for urination. He was weaned off of the oxygen this morning. He feels weak all over. Both patient and would like him to have rehab before returning home. 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 History of Any Multi-Drug Resistant Organisms: None Reported Past Surgical History: Appendectomy, Cardiac Ablation, Orthopedic Surgery, Orthopedic Surgery Additional Past Surgical History / Comment(s): Right hip replacement, bilateral cataract Past Anesthesia/Blood Transfusion Reactions: No Reported Reaction Smoking Status: Former smoker - Past Family History Father Family Medical History: Coronary Artery Disease (CAD) Additional Family Medical History / Comment(s): from an aneurysm Mother Family Medical History: Cancer Medications and Allergies Home Medications Medication Instructions Recorded Confirmed Type Timolol 0.5% Ophth Soln [Timoptic 1 drop BOTH EYES BID 12/24/23 02/15/24 History 0.5% Ophth Soln] Atorvastatin [Lipitor] 40 mg PO DAILY #30 tab 01/01/24 02/15/24 Rx Dapagliflozin Propanediol [Farxiga] 10 mg PO DAILY #30 tab 01/01/24 02/15/24 Rx Isosorbide Mononitrate ER [Imdur] 30 mg PO DAILY #30 tab 01/01/24 02/15/24 Rx Amiodarone [Cordarone] 200 mg PO DAILY 01/22/24 02/15/24 History Apixaban [Eliquis] 2.5 mg PO BID 01/24/24 02/15/24 History Folic Acid-Vit B Complex-Vit C 1 cap PO DAILY 01/24/24 02/15/24 History [Nephrocaps] Furosemide [Lasix] 40 mg PO DAILY 02/15/24 02/15/24 History Menthol-Zinc Oxide Oint 1 applic TOPICAL TID 02/15/24 02/15/24 History [Calmoseptine Ointment] Metoprolol Tartrate [Lopressor] 125 mg PO BID 02/15/24 02/15/24 History Pantoprazole [Protonix] 40 mg PO BID 02/15/24 02/15/24 History glipiZIDE XL [Glucotrol XL] 10 mg PO BID 02/15/24 02/15/24 History Allergies Allergy/AdvReac Type Severity Reaction Status Date / Time Penicillins Allergy Unknown Verified 02/15/24 07:14 Childhood Physical Exam Vitals: Vital Signs Temp Pulse Resp BP Pulse Ox 02/19/24 11:35 72 02/19/24 11:19 67 02/19/24 11:00 67 23 117/69 95 02/19/24 10:05 70 18 117/69 98 02/19/24 09:00 64 22 108/54 96 02/19/24 08:00 97.6 F 65 25 H 105/62 95 02/19/24 07:40 64 02/19/24 07:29 97 02/19/24 07:26 65 02/19/24 07:00 65 23 117/69 95 02/19/24 06:00 66 29 H 106/64 97 02/19/24 05:20 71 23 106/64 98 02/19/24 04:00 97.5 F L 61 19 96/53 94 L 02/19/24 03:00 60 19 98/52 93 L 02/19/24 02:00 60 19 106/64 94 L 02/19/24 01:00 61 19 104/59 94 L 02/19/24 00:26 64 24 104/59 95 02/19/24 00:00 97.6 F 59 L 30 H 94/55 96 02/18/24 23:39 58 L 02/18/24 23:00 58 L 21 91/77 97 02/18/24 22:00 59 L 14 108/75 97 02/18/24 21:00 64 22 103/56 96 02/18/24 20:00 97.8 F 58 L 22 117/61 95 02/18/24 19:00 61 20 112/73 95 02/18/24 18:00 61 18 107/63 96 02/18/24 17:00 20 97/56 94 L 02/18/24 16:32 58 L 02/18/24 16:24 59 L 02/18/24 16:00 98.2 F 58 L 18 98/58 96 02/18/24 15:00 58 L 22 103/58 94 L 02/18/24 14:00 58 L 18 101/59 93 L 02/18/24 13:00 58 L 22 89/66 94 L 02/18/24 12:32 58 L Intake and Output 02/18/24 02/19/24 02/19/24 22:59 06:59 14:59 Intake Total 320 250 500 Output Total 200 430 300 Balance 120 -180 200 Intake: Oral 320 250 500 Output: Urine 200 430 300 Other: Voiding Method Indwelling Catheter Indwelling Catheter Indwelling Catheter Weight 96.8 kg ABP, PAP, CO, CI - Last 8 Hours Cardiac Output 3.6 Cardiac Output 3.6 Cardiac Output 3.6 Cardiac Output 3.6 Cardiac Index 1.8 Cardiac Index 1.8 Cardiac Index 1.8 Cardiac Index 1.8 GENERAL: The patient is alert and oriented x3, not in any acute distress, but appears fatigued, Well developed, well nourished, male HEENT: No scleral icterus. No conjunctival pallor. Normocephalic, atraumatic. CARDIOVASCULAR: Heart hugger on, Sternotomy surgical incision, bilateral LE compression stockings on and SCDs, Right greater than left hand and arm edema, non pitting PULMONARY: Some wheezing but respirations are even and unlabored. ABDOMEN: Soft, non tender MUSCULOSKELETAL: Functional ROM of bilateral upper and lower extremities with generalized weakness NEUROLOGICAL: Speech is cleart and fluent, Sensation intact to light touch bilateral upper and lower extremities MMT: Bilateral SABD, EF,EE at least 4/5, FABD and HG 5/5, Bilateral HF and KE at least 4/5, DF 5/5 SKIN: pallor Results CBC & Chem 7: 02/19/24 03:04 02/19/24 03:04 Labs: Abnormal Lab Results - Last 24 Hours (Table) 02/18/24 02/18/24 02/19/24 Range/Units 16:03 20:41 03:04 RBC 2.38 L (4.30-5.90) m/uL Hgb 7.0 L (13.0-17.5) gm/dL Hct 22.5 L (39.0-53.0) % RDW 18.2 H (11.5-15.5) % Plt Count 132 L (150-450) k/uL Lymphocytes # 0.8 L (1.0-4.8) k/uL Sodium (137-145) mmol/L Chloride (98-107) mmol/L Carbon Dioxide (22-30) mmol/L BUN (9-20) mg/dL Creatinine (0.66-1.25) mg/dL Glucose (74-99) mg/dL POC Glucose (mg/dL) 172 H 192 H (70-110) mg/dL Calcium (8.4-10.2) mg/dL AST (17-59) U/L Total Protein (6.3-8.2) g/dL Albumin (3.5-5.0) g/dL Prealbumin (18.0-42.0) mg/dL 02/19/24 02/19/24 02/19/24 Range/Units 03:04 06:42 11:28 RBC (4.30-5.90) m/uL Hgb (13.0-17.5) gm/dL Hct (39.0-53.0) % RDW (11.5-15.5) % Plt Count (150-450) k/uL Lymphocytes # (1.0-4.8) k/uL Sodium 135 L (137-145) mmol/L Chloride 109 H (98-107) mmol/L Carbon Dioxide 18 L (22-30) mmol/L BUN 46 H (9-20) mg/dL Creatinine 2.17 H (0.66-1.25) mg/dL Glucose 114 H (74-99) mg/dL POC Glucose (mg/dL) 154 H 190 H (70-110) mg/dL Calcium 8.1 L (8.4-10.2) mg/dL AST 68 H (17-59) U/L Total Protein 4.8 L (6.3-8.2) g/dL Albumin 2.9 L (3.5-5.0) g/dL Prealbumin 6.8 L (18.0-42.0) mg/dL Assessment and Plan Assessment: # Cardiac debility seconary to coronary artery bypass grafting x 3 with POSADA to LAD, sequential saphenous vein graft to first and second obtuse marginal coronary arteries, mitral valve repair with 28 mm annular flex band, modified Vazquez-Maze with completed left sided lesion set using RF and cryoablation -sternal/cardiac precautions -PT/OT # ligation of left atrial appendage #Postop vent dependent respiratory failure -extubated and on RA #Multivessel coronary artery disease #History of severe mitral valve regurgitation #Post operative Acute blood loss anemia s/p transfusion -02/17 Hgb 7.2, may need transfusion, close monitoring by CT sx team #Acute kidney injury # Comorbities: Diabetes mellitus type 2,History of atrial fibrillation,History of hypertension,Former tobacco smoker,History of prostate cancer with previous radiation # DVT Proph- SCDs, meds per AUG # Pain Management - meds per AUG # Your medical dx and management Dispo: Patient is performing significantly below his baseline level of function after review of PT notes, needs OT evaluations. Patient is highly motivated for recovery and has a supportive and family. Recommending IPR once medically cleared, does not need an insurance authorization for IPR. Patient seen and examined by Mickie Lerma PA-C in collaboration with Dr Ca.
--- NOTE | 2024-02-19 13:10 | P.PN ---
Subjective Progress Note Date: 02/19/24 patient is a 78-year-old gentleman with past medical history significant for prostate cancer, diabetes mellitus, hypertension, angina, atrial fibrillation normally anticoagulated on Eliquis, recent cardiac workup showing multivessel coronary disease and severe MR who presented to the hospital for open heart surgery. Patient underwent coronary artery bypass grafting x 3 with POSADA to LAD, sequential saphenous vein graft to first and second obtuse marginal coronary arteries, mitral valve repair with 28 mm annular flex band, modified Vazquez-Maze with completed left sided lesion set using RF and cryoablation, ligation of left atrial appendage, and percutaneous placement of intra-aortic balloon pump. Patient was admitted to ICU. Internal medicine team were consulted for medical management 02/16. Patient seen and examined. Patient was extubated yesterday. Patient was on insulin drip, being transitioned to subcu insulin. Complaining of congestion. Denies any shortness of breath at rest 02/17. Patient seen and examined. Currently in ICU, chest tubes were removed. 02/18. Patient seen and examined. Blood work done this morning showed WBC 5.7, hemoglobin 7, sodium 135, potassium 3.7, BUN 46, creatinine 2.17,. Sitting upright in the chair. Denies any acute issues REVIEW OF SYSTEMS: CONSTITUTIONAL: No fever, no malaise,. CARDIOVASCULAR: Complaining of pain at the site of surgery. PULMONARY: Mentioned above, GASTROINTESTINAL: No diarrhea, no nausea, no vomiting, no abdominal pain. NEUROLOGICAL: No headaches, no weakness, PHYSICAL EXAMINATION: GENERAL: The patient is alert and oriented x3, not in any acute distress. Well developed, well nourished. HEENT: Pupils are round and equally reacting to light. EOMI. No scleral icterus. No conjunctival pallor. Normocephalic, atraumatic. No pharyngeal erythema. No thyromegaly. CARDIOVASCULAR: S1 and S2 present. No murmurs, rubs, or gallops. Sternotomy surgical incision seen PULMONARY: Coarse breath sounds, no wheezing or crackles. ABDOMEN: Soft, normoactive bowel sounds. No palpable organomegaly. MUSCULOSKELETAL: No joint swelling or deformity. EXTREMITIES: No cyanosis, clubbing, or pedal edema. NEUROLOGICAL: Gross neurological examination did not reveal any focal deficits. SKIN: No rashes. Assessment and plan coronary artery bypass grafting x 3 with POSADA to LAD, sequential saphenous vein graft to first and second obtuse marginal coronary arteries, mitral valve repair with 28 mm annular flex band, modified Vazquez-Maze with completed left sided lesion set using RF and cryoablation, ligation of left atrial appendage, and percutaneous placement of intra-aortic balloon pump. Postop vent dependent respiratory failure Multivessel coronary artery disease History of severe mitral valve regurgitation Acute blood loss anemia Acute kidney injury Diabetes mellitus type 2 History of atrial fibrillation History of hypertension Former tobacco smoker History of prostate cancer with previous radiation Monitor vital signs Monitor CBC Monitor CMP Continue telemetry monitoring Encourage use of incentive spirometer Aggressive bronchopulmonary hygiene Continue aspirin Plavix Continue hydralazine Continue breathing treatments Monitor blood sugar levels, continue moderate intensity sliding scale insulin and Levemir 10 units daily Cardiac surgery following Critical care following Labs and medication were reviewed.. Continue same treatment. Continue with symptomatic treatment. Resume home medication. Monitor labs and vitals. DVT and GI prophylaxis. Further recommendations as per clinical course of the patient Dictation was produced using [employer] dictation software. please excuse any grammatical, word or spelling errors. Objective - Vital Signs Vital signs: Vital Signs Temp 97.6 F 02/19/24 08:00 Pulse 70 02/19/24 10:05 Resp 18 02/19/24 10:05 BP 117/69 02/19/24 10:05 Pulse Ox 98 02/19/24 10:05 FiO2 40 02/16/24 10:06 Intake & Output 02/18/24 02/19/24 02/19/24 18:59 06:59 18:59 Intake Total 668 450 500 Output Total 355 490 175 Balance 313 -40 325 Weight 96.8 kg Intake: IV 108 Pressure Bags 18 Sodium Chloride 0.9% 1, 90 000 ml @ 30 mls/hr IV . Q24H JAYLEN Rx#:[id number] Oral 560 450 500 Output: Chest Tube Drainage 0 Lt pleural 0 Mediastinal 0 Urine 355 490 175 Other: Voiding Method Indwelling Catheter Indwelling Catheter ABP, PAP, CO, CI - Last Documented Arterial Blood Pressure 100/40 Pulmonary Artery Pressure 33/10 Cardiac Output 3.6 Cardiac Index 1.8 - Labs CBC & Chem 7: 02/19/24 03:04 02/19/24 03:04 Labs: Abnormal Lab Results - Last 24 Hours (Table) 02/18/24 02/18/24 02/18/24 Range/Units 11:12 16:03 20:41 RBC (4.30-5.90) m/uL Hgb (13.0-17.5) gm/dL Hct (39.0-53.0) % RDW (11.5-15.5) % Plt Count (150-450) k/uL Lymphocytes # (1.0-4.8) k/uL Sodium (137-145) mmol/L Chloride (98-107) mmol/L Carbon Dioxide (22-30) mmol/L BUN (9-20) mg/dL Creatinine (0.66-1.25) mg/dL Glucose (74-99) mg/dL POC Glucose (mg/dL) 183 H 172 H 192 H (70-110) mg/dL Calcium (8.4-10.2) mg/dL AST (17-59) U/L Total Protein (6.3-8.2) g/dL Albumin (3.5-5.0) g/dL Prealbumin (18.0-42.0) mg/dL 02/19/24 02/19/24 02/19/24 Range/Units 03:04 03:04 06:42 RBC 2.38 L (4.30-5.90) m/uL Hgb 7.0 L (13.0-17.5) gm/dL Hct 22.5 L (39.0-53.0) % RDW 18.2 H (11.5-15.5) % Plt Count 132 L (150-450) k/uL Lymphocytes # 0.8 L (1.0-4.8) k/uL Sodium 135 L (137-145) mmol/L Chloride 109 H (98-107) mmol/L Carbon Dioxide 18 L (22-30) mmol/L BUN 46 H (9-20) mg/dL Creatinine 2.17 H (0.66-1.25) mg/dL Glucose 114 H (74-99) mg/dL POC Glucose (mg/dL) 154 H (70-110) mg/dL Calcium 8.1 L (8.4-10.2) mg/dL AST 68 H (17-59) U/L Total Protein 4.8 L (6.3-8.2) g/dL Albumin 2.9 L (3.5-5.0) g/dL Prealbumin 6.8 L (18.0-42.0) mg/dL
[2024-02-19 13:30] LABS: Glucose,Whole Blood 183 mg/dL (70-110)
--- NOTE | 2024-02-19 13:59 | XR ---
EXAMINATION TYPE: XR chest 1V portable DATE OF EXAM: 02/19/2024 1:47 PM CLINICAL INDICATION: Male, 78 years old with history of respiratory difficulties; COMPARISON: Chest radiographs from 02/19/2024 TECHNIQUE: XR chest 1V portable Frontal view of the chest. FINDINGS: Lungs/Pleura: There is no evidence of pleural effusion, focal consolidation, or pneumothorax. Pulmonary vascularity: Unremarkable. Heart/mediastinum: Cardiomediastinal silhouette is enlarged. Musculoskeletal: No acute osseous pathology. Midline sternotomy wires are noted. IMPRESSION: Low lung volumes with a generalized hazy appearance which could represent atelectasis versus pulmonar y edema correlate with serum BNP.
[2024-02-19 14:14] LABS: INR 1.2 (<1.2); Partial Thromboplastin Time 31.4 sec (22.0-30.0); Prothrombin Time 12.3 sec (10.0-12.5)
[2024-02-19 14:23] LABS: ALT 33 U/L (4-49); AST 61 U/L (17-59); African American GFR (CKD) 33 (>60 ml/min/1.73 sqM); Albumin 3.2 g/dL (3.5-5.0); Alkaline Phosphatase 127 U/L (38-126); Anion Gap 11 mmol/L; Blood Urea Nitrogen 47 mg/dL (9-20); Calcium 8.2 mg/dL (8.4-10.2); Carbon Dioxide 15 mmol/L (22-30); Chloride 109 mmol/L (98-107); Glucose 199 mg/dL (74-99); Magnesium 2.3 mg/dL (1.6-2.3); Non-African American GFR(CKD) 29 (>60 ml/min/1.73 sqM); Potassium 4.3 mmol/L (3.5-5.1); Sodium 135 mmol/L (137-145); Total Bilirubin 1.3 mg/dL (0.2-1.3); Total Protein 5.1 g/dL (6.3-8.2)
--- NOTE | 2024-02-19 15:37 | P.EN ---
Patient went into the shower for his first postop shower. Unfortunately he slumped over and lost consciousness. He did get lowered to the floor, [facility] was called, CPR ensued for about 1 minute when he had spontaneous return of circulation. Epicardial pacemaker wires were connected to generator and generator started in DDD mode with rate 80 bpm. Patient woke up, was alert and oriented. See code sheet. He was lifted onto his bed and rolled back to his room. Labs, chest x-ray, EKG were obtained. Noted his underlying rhythm was asystole. Pacemaker generator set to VVI mode with rate 70 bpm. Blood pressure stable, oxygen saturation 100% on nonrebreather, weaned down to room air with oxygen saturation in the mid 90s. Discussed with Dr. Das. Discussed with Dr. Swain. Will make patient n.p.o. after midnight for pacemaker insertion tomorrow, February 20, 2024. Pacer pads remain on patient in addition to epicardial pacemaker wires. Discussed events in detail with the patient's and children, all questions were answered.
[2024-02-19 15:47] LABS: % Iron Saturation 25.93 (12.00-50.00)
[2024-02-19 16:24] LABS: Glucose,Whole Blood 203 mg/dL (70-110)
[2024-02-19 20:17] LABS: Glucose,Whole Blood 224 mg/dL (70-110)
[2024-02-19] MEDS: ATORVASTATIN 40 MG TAB PO SCH (20:24)
[2024-02-20 06:16] LABS: Glucose,Whole Blood 186 mg/dL (70-110)
[2024-02-20 06:33] LABS: Anisocytosis Slight; HCT 24.2 % (39.0-53.0); HGB 7.8 gm/dL (13.0-17.5); Hypochromasia Moderate; MCH 30.7 pg (25.0-35.0); MCHC 32.3 g/dL (31.0-37.0); Macrocytosis Slight; Mean Platelet Volume 8.7; Platelet Count 163 k/uL (150-450); Poikilocytosis Slight; RBC 2.55 m/uL (4.30-5.90); RDW 18.8 % (11.5-15.5); WBC 5.4 k/uL (3.8-10.6)
[2024-02-20 06:54] LABS: African American GFR (CKD) 40 (>60 ml/min/1.73 sqM); Anion Gap 9 mmol/L; Blood Urea Nitrogen 44 mg/dL (9-20); Calcium 8.3 mg/dL (8.4-10.2); Carbon Dioxide 22 mmol/L (22-30); Chloride 104 mmol/L (98-107); Glucose 168 mg/dL (74-99); Magnesium 2.2 mg/dL (1.6-2.3); Non-African American GFR(CKD) 35 (>60 ml/min/1.73 sqM); Potassium 4.2 mmol/L (3.5-5.1); Sodium 135 mmol/L (137-145)
--- NOTE | 2024-02-20 07:42 | XR ---
EXAMINATION TYPE: XR chest 1V portable DATE OF EXAM: 02/20/2024 COMPARISON: 02/19/2024 INDICATION: Post CABG TECHNIQUE: Single frontal view of the chest is obtained. FINDINGS: The heart size is largest. The pulmonary vasculature is normal. There is silhouetting the left diaphragm. Correlate for left lower lobe infiltrate, present previousl y. Minimal subsegmental atelectasis may be at the right lung base. Artifact overlies the right chest. IMPRESSION: 1. Worsening mild bibasilar infiltrates.
--- NOTE | 2024-02-20 07:49 | P.PN ---
Subjective Progress Note Date: 02/20/24 Principal diagnosis: Severe mitral valve regurgitation, acute on chronic diastolic congestive heart failure, coronary artery disease and persistent with previous non-STEMI, and par oxysmal atrial fibrillation. Past medical history significant for anemia without any evidence of acute GI bleed status post upper and lower endoscopy, chronic kidney disease stage III-IV, hypertension, diabetes mellitus type 2, obstructive sleep apnea with noncompliance of CPAP use, obesity with a BMI of 31.8 kg/m, prostate cancer status post 45 radiation treatments several years ago, frequent diarrhea, hard of hearing, and remote history of nicotine dependence in which she quit smoking 45 years ago. POD #3 Coronary artery bypass grafting x 3 with left internal mammary artery to the left anterior sending coronary artery, sequential saphenous vein graft to first and second obtuse marginal coronary arteries, endovascular vein harvest left leg, mitral valve repair with 28 mm annular flex band, percutaneous placement of intra-aortic balloon pump via right common femoral artery, modified Vazquez-Maze with complete left-sided lesion set using radiofrequency and cryoablation both epicardial and intracardiac, and ligation of the left atrial appendage with 2 layer suture closure. Postoperative acute blood loss anemia, expected given cardiopulmonary bypass, hemodilution and preoperative history of anemia. Status post day #1 cardiac arrest with return of spontaneous circulation with 1 minute of CPR. The patient was seen and examined in follow-up today February 20, 2024 at his bedside in the intensive care unit. He is currently laying in bed, is awake, alert, oriented x 3 and is in no acute apparent distress. He denies any complaints of shortness of breath or pain at this time, although continues to complain of a loose productive cough. He is coughing up some sputum which is tenacious and arenas in color. Oxygen saturations are 95% on room air and he is ac hieving 1250 mL on his incentive spirometry with encouragement. Bedside telemetry showing VVI paced rhythm with a heart rate of 70 bpm. He remains hemodynamically stable and is currently on no inotropic or pressor support. Laboratory and chest x-ray results reviewed. He is scheduled for a permanent pacemaker today to be placed by Dr. Estrella from electrophysiology at 11 AM. He remains n.p.o. at this time. Objective - Vital Signs Vital signs: Vital Signs Temp 98.9 F 02/20/24 00:00 Pulse 69 02/20/24 07:00 Resp 18 08/31/24 07:00 BP 121/63 02/20/24 07:00 Pulse Ox 95 02/20/24 07:00 FiO2 40 02/16/24 10:06 Intake & Output 02/19/24 02/20/24 02/20/24 18:59 06:59 18:59 Intake Total 680 222 Output Total 855 1170 50 Balance -175 -948 -50 Weight 101 kg Intake: Oral 680 222 Output: Urine 855 1170 50 Other: Voiding Method Indwelling Catheter Indwelling Catheter ABP, PAP, CO, CI - Last Documented Arterial Blood Pressure 100/40 Pulmonary Artery Pressure 33/10 Cardiac Output 3.6 Cardiac Index 1.8 - Exam CONSTITUTIONAL: Appears comfortable, cooperative, no apparent acute distress. HEENT: Neck is supple, no JVD, no lymphadenopathy. RESPIRATORY: Lungs sounds with scattered rhonchi throughout, diminished to his bilateral bases. Currently on room air with oxygen saturations 95%. Able to a chieve 1250 mL on his incentive spirometry. Strong cough. CARDIOVASCULAR: Regular rhythm and rate. S1 and S2 present, negative for S3, gallop or murmur. Bedside telemetry is showing VVI paced rhythm heart rate 70 bpm. Sternum is stable. Palpable peripheral pulses bilaterally. No calf pain or tenderness noted. Heart hugger in place, demonstrating appropriate use. Knee-high RAYMUNDO hose and sequential compression devices in place to his bilateral lower extremities. GASTROINTESTINAL: Abdomen soft, nontender, nondistended. Active bowel sounds present 4 quadrants. NPO at this time. No guarding or rigidity. GENITOURINARY: Jones present draining clear, yellow urine. Urine output 975 mL in the last 8 hours. INTEGUMENTARY: Skin is warm and dry with no evidence of clubbing or cyanosis. Midline sternal incision clean dry and well approximated, covered with dry intact dressing. Left lower extremity EVH sites well approximated without redness or drainage. NEUROLOGIC: No focal deficits. MUSKULOSKELETAL: Able to move all extremities, strength equal bilaterally, generalized weakness. PSYCHIATRIC: Alert and oriented to person place and time, appropriate affect, intact judgment and insight. INVASIVE LINES AND TUBES: Atrial and ventricular epicardial pacemaker wires present, connected to generator, VVI mode of 70 bpm. - Allied health notes Allied health notes reviewed: nursing - Labs CBC & Chem 7: 02/20/24 05:53 02/20/24 05:53 Labs: Abnormal Lab Results - Last 24 Hours (Table) 02/19/24 02/19/24 02/19/24 Range/Units 03:04 11:13 11:28 RBC (4.30-5.90) m/uL Hgb (13.0-17.5) gm/dL Hct (39.0-53.0) % RDW (11.5-15.5) % INR (<1.2) APTT (22.0-30.0) sec Sodium (137-145) mmol/L Chloride (98-107) mmol/L Carbon Dioxide (22-30) mmol/L BUN (9-20) mg/dL Creatinine (0.66-1.25) mg/dL Glucose (74-99) mg/dL POC Glucose (mg/dL) 190 H (70-110) mg/dL Calcium (8.4-10.2) mg/dL Iron 42 L (50-175) UG/DL TIBC 162 L (228-460) UG/DL Transferrin 116.0 L (204.0-354.0) mg/dL AST (17-59) U/L Alkaline Phosphatase (38-126) U/L Total Protein (6.3-8.2) g/dL Albumin (3.5-5.0) g/dL Prealbumin 6.8 L (18.0-42.0) mg/dL 02/19/24 02/19/24 02/19/24 Range/Units 13:19 13:51 13:51 RBC (4.30-5.90) m/uL Hgb (13.0-17.5) gm/dL Hct (39.0-53.0) % RDW (11.5-15.5) % INR 1.2 H (<1.2) APTT 31.4 H (22.0-30.0) sec Sodium 135 L (137-145) mmol/L Chloride 109 H (98-107) mmol/L Carbon Dioxide 15 L (22-30) mmol/L BUN 47 H (9-20) mg/dL Creatinine 2.10 H (0.66-1.25) mg/dL Glucose 199 H (74-99) mg/dL POC Glucose (mg/dL) 183 H (70-110) mg/dL Calcium 8.2 L (8.4-10.2) mg/dL Iron (50-175) UG/DL TIBC (228-460) UG/DL Transferrin (204.0-354.0) mg/dL AST 61 H (17-59) U/L Alkaline Phosphatase 127 H (38-126) U/L Total Protein 5.1 L (6.3-8.2) g/dL Albumin 3.2 L (3.5-5.0) g/dL Prealbumin (18.0-42.0) mg/dL 02/19/24 02/19/24 02/20/24 Range/Units 16:22 20:16 05:53 RBC 2.55 L (4.30-5.90) m/uL Hgb 7.8 L (13.0-17.5) gm/dL Hct 24.2 L (39.0-53.0) % RDW 18.8 H (11.5-15.5) % INR (<1.2) APTT (22.0-30.0) sec Sodium (137-145) mmol/L Chloride (98-107) mmol/L Carbon Dioxide (22-30) mmol/L BUN (9-20) mg/dL Creatinine (0.66-1.25) mg/dL Glucose (74-99) mg/dL POC Glucose (mg/dL) 203 H 224 H (70-110) mg/dL Calcium (8.4-10.2) mg/dL Iron (50-175) UG/DL TIBC (228-460) UG/DL Transferrin (204.0-354.0) mg/dL AST (17-59) U/L Alkaline Phosphatase (38-126) U/L Total Protein (6.3-8.2) g/dL Albumin (3.5-5.0) g/dL Prealbumin (18.0-42.0) mg/dL 02/20/24 02/20/24 Range/Units 05:53 06:15 RBC (4.30-5.90) m/uL Hgb (13.0-17.5) gm/dL Hct (39.0-53.0) % RDW (11.5-15.5) % INR (<1.2) APTT (22.0-30.0) sec Sodium 135 L (137-145) mmol/L Chloride (98-107) mmol/L Carbon Dioxide (22-30) mmol/L BUN 44 H (9-20) mg/dL Creatinine 1.81 H (0.66-1.25) mg/dL Glucose 168 H (74-99) mg/dL POC Glucose (mg/dL) 186 H (70-110) mg/dL Calcium 8.3 L (8.4-10.2) mg/dL Iron (50-175) UG/DL TIBC (228-460) UG/DL Transferrin (204.0-354.0) mg/dL AST (17-59) U/L Alkaline Phosphatase (38-126) U/L Total Protein (6.3-8.2) g/dL Albumin (3.5-5.0) g/dL Prealbumin (18.0-42.0) mg/dL Microbiology - Last 24 Hours (Table) 02/19/24 11:35 Gram Stain - Preliminary Sputum - Imaging and Cardiology Chest x-ray: report reviewed, image reviewed Assessment and Plan Assessment: Severe mitral valve regurgitation, status post mitral valve repair with 28 mm annular flex band Coronary artery disease status post coronary artery bypass grafting x 3 with left internal mammary artery to the left anterior sending coronary artery Paroxysmal atrial fibrillation status post modified Vazquez-Maze with complete left- sided lesion set using radiofrequency and cryoablation both epicardial and intracardiac, and ligation of the left atrial appendage with 2 layer suture closure Acute on chronic systolic congestive heart failure, status post percutaneous placement of intra-aortic balloon pump via right common femoral artery, and subsequent removal of intra-aortic balloon pump on 02/16/2024 Chronic kidney disease stage IIIb, with a preoperative creatinine of 2.24 Chronic anemia without any evidence of acute GI bleed, status post recent upper and lower endoscopy Hypertension Diabetes mellitus type 2 with a preoperative hemoglobin A1c of 9.3% Obesity with a BMI of 31.8 kg/m Prostate cancer status post 45 radiation treatment several years ago Frequent diarrhea and inability to hold his bowel movements controlled with Imodium on an outpatient basis Remote history of nicotine dependence quit smoking 45 years ago, with her preoperative FEV1 63% of predicted value Obstructive sleep apnea with noncompliance of CPAP use Postoperative acute blood loss anemia, expected given cardiopulmonary bypass, hemodilution and his preoperative anemia Elevated transaminitis enzymes, resolved Medical debility Plan: Continue to maximize medical therapy with aspirin, statin, and Plavix. Continue to hold metoprolol tartrate. Scheduled for permanent pacemaker placement today by Dr. Estrella at 11 AM. Keep NPO. Will monitor daily labs and chest x-rays. Electrolyte replacement per protocol. Continue Lasix, potassium supplementation. Prealbumin result was 6.8. Encourage nutrition once pacemaker has been placed. Encourage incentive spirometry use 10 times every hour while awake. Bronchodilators per pulmonology/critical care management. Continue Mucinex, Mucomyst nebulizer and Symbicort. Increase activity, ambulate as tolerated. PT/OT/cardiac rehab following. Patient walks with a walker at home. Pain control per current medication regimen. Avoid nephrotoxic agents Continue home dose of Nephrocaps nephrology also added sodium bicarb tablets 650 mg p.o. twice daily. Insulin management per internal medicine. Preoperative hemoglobin A1c 9.3%. We remove his mediastinal and left pleural chest tubes today. We will remove his right IJ cordis and right radial arterial line Continue Jones catheter for another 24 hours, continue to record strict accurate intake and output. Daily weights. Shower daily. Continue hydralazine 25 mg p.o. twice daily for afterload reduction. We will start Lasix 20 mg IV every 8 hours and potassium 20 mill equivalents p.o. daily while on Lasix. Continue atrial and ventricular epicardial pacemaker wires, keep epicardial pacemaker wires connected to bedside backup pacemaker generator on a VVI mode of 70 bpm. More recommendations to follow based on patient's clinical course. Time with Patient: Greater than 30
[2024-02-20] MEDS: VANCOMYCIN 1,000 MG in SODIUM CHLORIDE 0.9% 250 ML IVPB ONE (10:07)
[2024-02-20] MEDS: SODIUM CHLORIDE 0.9% 500 ML 500 ML IV ONE (10:33)
--- NOTE | 2024-02-20 10:36 | P.PN ---
Subjective Progress Note Date: 02/20/24 Patient is a-year-old white male with past medical history significant for prostate cancer, diabetes mellitus, hypertension, angina, atrial fibrillation normally anticoagulated on Eliquis. Of note, patient had a recent hospitalization 12/24/2023 where he did have an extensive cardiac workup. He was found to have multivessel coronary artery disease and severe mitral regurgitation. Cardiac cath done on 12/28/2023 demonstrates 80% mid LAD stenosis, 90% mid OM2 disease, and moderate diffuse disease in the PDA. Cardiothoracic team was asked to evaluate this patient up for potential open heart surgery. Echocardiogram done the same admission showed a left ventricular ejection fraction estimated at 25 to 30%, as well as, moderate to severe mitral valve regurgitation. Patient underwent open heart surgery yesterday 02/15/2024 including coronary artery bypass grafting x 3 with POSADA to LAD, sequential saphenous vein graft to first and second obtuse marginal coronary arteries, mitral valve repair with 28 mm annular flex band, modified Vazquez-Maze with completed left sided lesion set using RF and cryoablation, ligation of left atrial appendage, and percutaneous placement of intra-aortic balloon pump. Patient was transferred to the intensive care unit postoperatively in critical condition. Or exit time documented at 1430. He did have a 2 L EBL. Status post 4 units PRBC, 2 FFP, 2 platelets, 1.5 L albumin, and 1200 mL Cell Saver. He remains intubated to mechanical ventilator. Postoperative chest x-ray shows mild pulmonary congestion and cardiomegaly, no pneumothorax. Endotracheal tube 2.6 cm above the clark. NG tube courses below the diaphragm. Southington-Julius catheter with tip projecting over the spine, mediastinal and left thoracotomy tubes in place. Postoperative ABG PaO2 204, pCO2 40, pH 7.36. Current ventilator settings including assist-control, respiratory rate 14, tidal volume 500, FiO2 50%, PEEP of 5. Peak pressure 22, no significant airway secretions. Patient is lightly sedated on propofol which is currently infusing at 50 mcg/kg/min. He does awaken to verbal stimuli, follows all commands, moves all 4 extremities equally. Reportedly has not been extubated at this point, due to increased vasopressor requirements. He is on a one-to-one balloon pump with augmented pressure of 87 mean pressure 65. CI 2.4/CO 4.8. Pulmonary artery pressure 47/22. CVP 14. Milrinone infusing at 0.2 mcg/kg/min. Norepinephrine infusing at 0.04 mcg/kg/min. Normal saline also infusing at 50 mL/h. Insulin per protocol. He does have an epicardial pacemaker wires, currently DDI settings at a rate of 80 bpm. Patient does have 2 mediastinal chest tubes hooked to an atrium with 470 mL of serosanguineous output at this point in time. Left pleural chest tube has a total of 180 mL of serosanguineous output. These are both to negative 20 cm H2O suction. No obvious air leak. Urinary catheter is in place, draining adequate urine output in the order of 30 to 40 mL/h. Most recent CBC: WBC count 5.9, hemoglobin 8, hematocrit 24.8, platelets 127. Coagulation profile including PT 13.6, INR 1.3, APTT 28.6, fibrinogen 215. CMP: Sodium 141, potassium 3.9, chloride 111, serum bicarb 23, BUN 33, creatinine 1.56, glucose 149. Ionized calcium 5. AST 194, ALT 95, ALP 56. Plan is to pursue extubation later this morning. The patient is seen today February 17, 2024 in follow-up in the intensive care unit. Postoperative day #2. He is currently sitting up in chair at the [facility]. Awake and alert in no acute distress. Chest x-ray continues to show some atelectasis and small effusions bilaterally. He is a good encouraged regarding the increased use of the incentive spirometer. Cardiac output 6.1. Cardiac index 3.1. He is on normal saline at 30 mL/h. Primacor was discontinued this morning. He remains on insulin drip at 6 units/h. Mediastinal and left chest tubes remain in place. White count 10.0. Hemoglobin 7.3. Platelets 116. Sodium 140. Potassium 3.9. Bicarb 22. BUN 26. Creatinine 1.68. Glucose 123. He remains on DuoNeb inhalations, Symbicort, Mucinex. Heparin for DVT prophylaxis. The patient is seen today February 18, 2024 in follow-up in the intensive care unit. Postoperative day #3. He is awake and alert in no acute distress. Maintaining good O2 saturations in the mid 90s on room air. He is afebrile. Hemodynamically stable. Sitting up in a chair at the bedside. He has been on several walks yesterday and earlier today. He is doing well. Working well with the incentive spirometer. No worsening shortness of breath, cough or congestion. This x-ray continues to show mild pulmonary edema. Mediastinal and left chest tubes in place. Cordis in place. He has normal saline at 30 mL/h. White count 8.4. Hemoglobin 7.3. Platelets 132. Sodium 135. Potassium 4.3. Bicarb 18. BUN 33. Creatinine 1.78. Glucose 136. AST 110. ALT 44. He remains on DuoNeb inhalations. Heparin for DVT prophylaxis. He remains on Lasix 20 mg IV every 8 hours. He is currently in a +1.5 L balance. The patient is seen today February 19, 2024 in follow-up in the intensive care unit. Postoperative day #4. He is currently sitting up in a chair. Awake and alert in no acute distress. Maintaining O2 saturations in the 90s on room air. No IV fluids. His chest x-ray is showing improvement in the pulmonary congestion. He is doing better with the incentive spirometer currently pulling 1250 mL. He remains on IV diuretics. In a positive balance still. He is continued on bronchodilators. Heparin for DVT prophylaxis. White count 5.7. Hemoglobin 7.0. Platelets 132. Sodium 135. Potassium 3.7. Bicarb 18. BUN 46. Creatinine 2.17. Glucose 114. The patient is seen today February 20, 2024 in follow-up in the intensive care unit. Postoperative day #5. He is currently resting comfortably in bed. Awake and alert in no acute distress. He did have a significant event yesterday while up to the shower went unresponsive and required 1 minute of CPR and resumption of temporary pacing and recovered. Plan is for permanent pacemaker implantation today. Chest x-ray shows worsening mild bibasilar infiltrates. He is working with the incentive spirometer. He is maintaining O2 saturations in the 90s on room air. He is status post 4 units of packed red blood cells, 2 units of fresh frozen plasma and 2 units of platelets this admission. White count 5.4. Hemoglobin 7.8. Platelets 163. Sodium 135. Potassium 4.2. Bicarb 22. BUN 44. Creatinine 1.81. Glucose 168. He is continued on DuoNeb inhalations, Symbicort, IV diuretics. Heparin for DVT prophylaxis. He is currently in a - 1.1 L balance. Objective - Vital Signs Vital signs: Vital Signs Temp 98.7 F 02/20/24 08:00 Pulse 69 02/20/24 10:00 Resp 27 H 02/20/24 10:00 BP 101/89 02/20/24 10:00 Pulse Ox 97 02/20/24 10:00 FiO2 40 02/16/24 10:06 Intake & Output 02/19/24 02/20/24 02/20/24 18:59 06:59 18:59 Intake Total 680 222 250 Output Total 855 1170 325 Balance -175 -948 -75 Weight 101 kg Intake: IV 250 Vancomycin 1,000 mg In 250 Sodium Chloride 0.9% 250 ml @ 125 mls/hr IVPB ONCE ONE Rx#:[id number] Oral 680 222 Output: Urine 855 1170 325 Other: Voiding Method Indwelling Catheter Indwelling Catheter ABP, PAP, CO, CI - Last Documented Arterial Blood Pressure 100/40 Pulmonary Artery Pressure 33/10 Cardiac Output 3.6 Cardiac Index 1.8 - Exam GENERAL EXAM: Awake, alert 78-year-old male patient, on room air, resting in bed, comfortable in no acute distress. HEAD: Normocephalic and atraumatic EYES: Normal reaction of pupils, equal size. NOSE: Clear with pink turbinates. THROAT: No erythema or exudates. NECK: No masses, no JVD. CHEST: Midstern incision dressed with postoperative dressing clean, dry, intact. Pacemaker wires in place. LUNGS: Equal air entry with few scattered rhonchi. CVS: S1 and S2 normal with no audible murmur, regular rhythm. ABDOMEN: No hepatosplenomegaly, active bowel sounds, no guarding or rigidity. SPINE: No scoliosis or deformity SKIN: No rashes CENTRAL NERVOUS SYSTEM: No focal deficits, tone is normal in all 4 extremities. EXTREMITIES: Distal pulses intact. Legs with sequential compression devices. - Labs CBC & Chem 7: 02/20/24 05:53 02/20/24 05:53 Labs: Abnormal Lab Results - Last 24 Hours (Table) 02/19/24 02/19/24 02/19/24 Range/Units 11:13 11:28 13:19 RBC (4.30-5.90) m/uL Hgb (13.0-17.5) gm/dL Hct (39.0-53.0) % RDW (11.5-15.5) % INR (<1.2) APTT (22.0-30.0) sec Sodium (137-145) mmol/L Chloride (98-107) mmol/L Carbon Dioxide (22-30) mmol/L BUN (9-20) mg/dL Creatinine (0.66-1.25) mg/dL Glucose (74-99) mg/dL POC Glucose (mg/dL) 190 H 183 H (70-110) mg/dL Calcium (8.4-10.2) mg/dL Iron 42 L (50-175) UG/DL TIBC 162 L (228-460) UG/DL Transferrin 116.0 L (204.0-354.0) mg/dL AST (17-59) U/L Alkaline Phosphatase (38-126) U/L Total Protein (6.3-8.2) g/dL Albumin (3.5-5.0) g/dL 02/19/24 02/19/24 02/19/24 Range/Units 13:51 13:51 16:22 RBC (4.30-5.90) m/uL Hgb (13.0-17.5) gm/dL Hct (39.0-53.0) % RDW (11.5-15.5) % INR 1.2 H (<1.2) APTT 31.4 H (22.0-30.0) sec Sodium 135 L (137-145) mmol/L Chloride 109 H (98-107) mmol/L Carbon Dioxide 15 L (22-30) mmol/L BUN 47 H (9-20) mg/dL Creatinine 2.10 H (0.66-1.25) mg/dL Glucose 199 H (74-99) mg/dL POC Glucose (mg/dL) 203 H (70-110) mg/dL Calcium 8.2 L (8.4-10.2) mg/dL Iron (50-175) UG/DL TIBC (228-460) UG/DL Transferrin (204.0-354.0) mg/dL AST 61 H (17-59) U/L Alkaline Phosphatase 127 H (38-126) U/L Total Protein 5.1 L (6.3-8.2) g/dL Albumin 3.2 L (3.5-5.0) g/dL 02/19/24 02/20/24 02/20/24 Range/Units 20:16 05:53 05:53 RBC 2.55 L (4.30-5.90) m/uL Hgb 7.8 L (13.0-17.5) gm/dL Hct 24.2 L (39.0-53.0) % RDW 18.8 H (11.5-15.5) % INR (<1.2) APTT (22.0-30.0) sec Sodium 135 L (137-145) mmol/L Chloride (98-107) mmol/L Carbon Dioxide (22-30) mmol/L BUN 44 H (9-20) mg/dL Creatinine 1.81 H (0.66-1.25) mg/dL Glucose 168 H (74-99) mg/dL POC Glucose (mg/dL) 224 H (70-110) mg/dL Calcium 8.3 L (8.4-10.2) mg/dL Iron (50-175) UG/DL TIBC (228-460) UG/DL Transferrin (204.0-354.0) mg/dL AST (17-59) U/L Alkaline Phosphatase (38-126) U/L Total Protein (6.3-8.2) g/dL Albumin (3.5-5.0) g/dL 02/20/24 Range/Units 06:15 RBC (4.30-5.90) m/uL Hgb (13.0-17.5) gm/dL Hct (39.0-53.0) % RDW (11.5-15.5) % INR (<1.2) APTT (22.0-30.0) sec Sodium (137-145) mmol/L Chloride (98-107) mmol/L Carbon Dioxide (22-30) mmol/L BUN (9-20) mg/dL Creatinine (0.66-1.25) mg/dL Glucose (74-99) mg/dL POC Glucose (mg/dL) 186 H (70-110) mg/dL Calcium (8.4-10.2) mg/dL Iron (50-175) UG/DL TIBC (228-460) UG/DL Transferrin (204.0-354.0) mg/dL AST (17-59) U/L Alkaline Phosphatase (38-126) U/L Total Protein (6.3-8.2) g/dL Albumin (3.5-5.0) g/dL Microbiology - Last 24 Hours (Table) 02/19/24 11:35 Gram Stain - Preliminary Sputum Assessment and Plan Assessment: Postoperative day #5 following coronary artery bypass grafting x 3 with POSADA to LAD, sequential saphenous vein graft to first and second obtuse marginal coronary arteries, mitral valve repair with 28 mm annular flex band, modified Vazquez-Maze with completed left sided lesion set using RF and cryoablation, ligation of left atrial appendage, and percutaneous placement of intra-aortic balloon pump. Balloon pump removed. Brief cardiac arrest on 02/19/2024 requiring 1 minute of CPR and resumption of pacing. Plan is for permanent pacemaker today 02/20/2024 Routine mechanical ventilator management and subsequent extubation. Today's chest x-ray shows pulmonary congestion and cardiomegaly, no pneumothorax. Mediastinal and left thoracotomy tubes in place. Multivessel coronary artery disease History of severe mitral valve regurgitation Acute blood loss anemia, expected outcome of surgery, Status post 4 units PRBC, 2 FFP, 2 platelets, 1.5 L albumin, and 1200 mL Cell Saver. Acute kidney injury, secondary to hypotension and ATN Diabetes mellitus type 2 History of atrial fibrillation, normally anticoagulated on Eliquis, status post synchronized cardioversion on 12/31/2023 History of hypertension Former tobacco smoker History of prostate cancer with previous radiation Plan: The patient was seen and evaluated Chest x-ray, labs and medications reviewed Plan is for permanent pacemaker implantation today Currently stable and on room air Continue the current treatment plan We will continue to follow I have personally seen and examined the patient, performed the documentation and the assessment and plan as written. Number of minutes spent on the visit: 10.
[2024-02-20] MEDS ORDERED: FUROSEMIDE 10 MG/ML 4 ML VIAL ONE (10:57)
[2024-02-20] MEDS: FUROSEMIDE 10 MG/ML 4 ML VIAL IVP ONE (11:00)
[2024-02-20] MEDS ORDERED: LIDOCAINE 1% INJ 10MG/ML (20 ML MDV) ONE (11:12)
[2024-02-20] MEDS ORDERED: HEPARIN SODIUM 1,000 UN/ML (10ML VL) ONE (11:12)
[2024-02-20] MEDS ORDERED: HEPARIN SODIUM,PORCINE 5,000 UNIT/ML 1 ML VIAL ONE (11:21)
[2024-02-20] MEDS: LIDOCAINE 1% INJ 10MG/ML (20 ML MDV) SQ ONE (11:46)
[2024-02-20] MEDS: IOPAMIDOL-370 100ML BTL INJ ONE (12:10)
[2024-02-20] MEDS: HEPARIN SODIUM,PORCINE 10,000 UNIT in SODIUM CHLORIDE 0.9% 1,000 ML IRRIGATION ONE (12:18)
--- NOTE | 2024-02-20 13:19 | P.EPPROC ---
- EP Procedure Note Electrophysiology Procedure Note: Procedure Implantation of for Micra device Indication for the procedure Complete heart block, asystolic arrest yesterday despite epicardial pacing leads Epicardial lead not sensing intrinsic QRS today Underlying severe cardiomyopathy preoperatively ejection fraction 20-25%, multi vessel severe coronary artery disease and severe mitral regurgitation Underlying preoperative sick sinus syndrome and left bundle branch block pattern on twelve-lead EKG Status post coronary artery bypass grafting of multivessel disease, mitral ring repair, maze procedure and left atrial appendage appendectomy Day 5-6 following surgery Still has worsening bibasilar infiltrates, previously left lower lobe infiltrate Pus around the urethra, Jones catheter in situ Short of breath at rest A Micra AV implant in a high septal position to obtain a narrow QRS for ventricular pacing Resume beta-blockers thereafter Details Patient was brought to the EP lab in a fasting state. Written informed consent was obtained prior to the procedure. General anesthesia was provided. Venous accesses was obtained, right and left femoral veins Temporary pacing catheter placed via the left femoral vein into the RV apex while the Micra device was being manipulated and deployed The MICRA system and sheaths were placed in the right atrium The MICRA device loaded in the delivery system was passed through this sheath, across the tricuspid valve into the right ventricle and implanted in the RV septum IV dye injection performed in SPANISH and MARION views to confirm good contact on the septum of the right ventricle Testing performed Good sensing capture and impedance obtained Micra device deployed. Test performed. Stability and showed. Good sensing and pacing thresholds and stable impedances reconfirmed The Micra device detach from the delivery system. Delivery system were drawn Sheaths withdrawn, left-sided TVP removed Perclose closure of the venous access right femoral vein, Vascade closure of the left femoral vein Patient tolerated the procedure well without any acute complications Pacemaker interrogation R waves 14.5 mV, pacing impedance 910 ohms, pacing threshold 0.38 V at 0.24 ms Programmed to sensed atrial signals and pace RV as needed, whenever AV block occurs
--- NOTE | 2024-02-20 13:34 | P.PN ---
Progress Note - Text Patient very short of breath. Unable to lie flat today, orthopneic, coughing Chest x-ray shows bilateral infiltrates Coughing up, with expectoration Pus around the urethra Epicardial ventricular lead non-sensing today Micra AV device for secured pacing with low infection risk as compared to a standard pacemaker Ambulate after 3 hours of bedrest, elevate head of bed 40 degrees immediately Maximize heart failure medications now External defibrillator at discharge for 4 months Follow-up with Dr. Pelletier as an outpatient After 3 months following discharge Reassess LV function Reassess conduction system and extent of RV pacing Assess QRS morphology Decision regarding any further intervention thereafter
[2024-02-20 13:54] LABS: Glucose,Whole Blood 220 mg/dL (70-110)
[2024-02-20] MEDS: PIPERACILLIN-TAZOBACTAM 3.375 GM in SODIUM CHLORIDE 0.9% 100 ML IVPB SCH (14:15)
[2024-02-20 16:57] LABS: Glucose,Whole Blood 217 mg/dL (70-110)
--- NOTE | 2024-02-20 17:41 | P.PN ---
Subjective Progress Note Date: 02/20/24 Interval History: patient is a 78-year-old gentleman with past medical history significant for prostate cancer, diabetes mellitus, hypertension, angina, atrial fibrillation normally anticoagulated on Eliquis, recent cardiac workup showing multivessel coronary disease and severe MR who presented to the hospital for open heart surgery. Patient underwent coronary artery bypass grafting x 3 with POSADA to LAD , sequential saphenous vein graft to first and second obtuse marginal coronary arteries, mitral valve repair with 28 mm annular flex band, modified Vazquez-Maze with completed left sided lesion set using RF and cryoablation, ligation of left atrial appendage, and percutaneous placement of intra-aortic balloon pump. Patient was admitted to ICU. Internal medicine team were consulted for medical management. 02/19--- patient was seen and examined today. Patient underwent placement of pacemaker today by EP. Family at bedside. Patient denies any issues overnight. Pain is controlled. Patient currently on Zosyn, respiratory culture growing Enterobacter. ICU following. Assessment and plan: coronary artery bypass grafting x 3 with POSADA to LAD, sequential saphenous vein graft to first and second obtuse marginal coronary arteries, mitral valve repair with 28 mm annular flex band, modified Vazquez-Maze with completed left sided lesion set using RF and cryoablation, ligation of left atrial appendage, and percutaneous placement of intra-aortic balloon pump. Status post pacemaker placement:02/19 Postop vent dependent respiratory failure Multivessel coronary artery disease History of severe mitral valve regurgitation Acute blood loss anemia Acute kidney injury Diabetes mellitus type 2 History of atrial fibrillation History of hypertension Former tobacco smoker History of prostate cancer with previous radiation Monitor vital signs Monitor CBC Monitor CMP Continue telemetry monitoring Aggressive bronchopulmonary hygiene Continue vent management per ICU Continue vasopressor Continue insulin--Levemir, sliding scale insulin. CT surgery following ICU following Continue Zosyn. Labs and medication were reviewed.. Continue same treatment. Continue with symptomatic treatment. Resume home medication. Monitor labs and vitals. DVT and GI prophylaxis. Further recommendations as per clinical course of the patient PHYSICAL EXAMINATION: GENERAL: The patient is A&O x3, NAD HEENT: EOMI, Sclerae anicteric, Moist Mucous membranes Neck: Supple, Non tender, No JVD PULMONARY: Equal breath souds B/L, No wheezing, No crackles. CARDIOVASCULAR: S1, S2 present. No murmurs, rubs, or gallops. ABDOMEN: Soft, nontender, nondistended, normoactive bowel sounds. No guarding or rebound tenderness. MUSCULOSKELETAL: No edema, No cyanosis. No clubbing. Normal ROM. Intact peripheral pulses. EXTREMITIES: No cyanosis, clubbing, or pedal edema. NEUROLOGICAL: CN 2-12 grossly intact. No FND Skin: No Rash REVIEW OF SYSTEMS: CONSTITUTIONAL: No fever or chills. CARDIOVASCULAR: No chest pain, palpitations or syncope. PULMONARY: No shortness of breath, no cough, sore throat. GASTROINTESTINAL: No nausea, vomiting, diarrhea, abdominal pain. : No Dysuria, urgency, frequency. Extremities: No edema. NEUROLOGICAL: No headaches, no weakness, or numbness Dictation was produced using [employer] dictation software. please excuse any grammatical, word or spelling errors. Objective - Vital Signs Vital signs: Vital Signs Temp 98.4 F 02/20/24 16:00 Pulse 70 02/20/24 17:00 Resp 22 02/20/24 17:00 BP 106/57 02/20/24 17:00 Pulse Ox 96 02/20/24 17:00 FiO2 40 02/16/24 10:06 Intake & Output 02/19/24 02/20/24 02/20/24 18:59 06:59 18:59 Intake Total 120 793 8442 Output Total 855 1170 1460 Balance -391 -746 -712 Weight 101 kg Intake: IV 420 Piperacillin-Tazobactam 3 100 .375 gm In Sodium Chloride 0.9% 100 ml @ 25 mls/hr IVPB Q8H [facility] Rx#: [id number] Vancomycin 1,000 mg In 250 Sodium Chloride 0.9% 250 ml @ 125 mls/hr IVPB ONCE ONE Rx#:[id number] Oral 680 222 720 Output: Urine 855 1170 1460 Other: Voiding Method Indwelling Catheter Indwelling Catheter Indwelling Catheter ABP, PAP, CO, CI - Last Documented Arterial Blood Pressure 100/40 Pulmonary Artery Pressure 33/10 Cardiac Output 3.6 Cardiac Index 1.8 - Labs CBC & Chem 7: 02/20/24 05:53 02/20/24 05:53 Labs: Abnormal Lab Results - Last 24 Hours (Table) 02/19/24 02/20/24 02/20/24 Range/Units 20:16 05:53 05:53 RBC 2.55 L (4.30-5.90) m/uL Hgb 7.8 L (13.0-17.5) gm/dL Hct 24.2 L (39.0-53.0) % RDW 18.8 H (11.5-15.5) % Sodium 135 L (137-145) mmol/L BUN 44 H (9-20) mg/dL Creatinine 1.81 H (0.66-1.25) mg/dL Glucose 168 H (74-99) mg/dL POC Glucose (mg/dL) 224 H (70-110) mg/dL Calcium 8.3 L (8.4-10.2) mg/dL 02/20/24 02/20/24 02/20/24 Range/Units 06:15 13:52 16:56 RBC (4.30-5.90) m/uL Hgb (13.0-17.5) gm/dL Hct (39.0-53.0) % RDW (11.5-15.5) % Sodium (137-145) mmol/L BUN (9-20) mg/dL Creatinine (0.66-1.25) mg/dL Glucose (74-99) mg/dL POC Glucose (mg/dL) 186 H 220 H 217 H (70-110) mg/dL Calcium (8.4-10.2) mg/dL Microbiology - Last 24 Hours (Table) 02/19/24 11:35 Gram Stain - Preliminary Sputum Sputum Culture - Preliminary Enterobacter cloacae Complex
[2024-02-20 20:56] LABS: Glucose,Whole Blood 203 mg/dL (70-110)
[2024-02-20] MEDS: METOPROLOL TARTRATE 25 MG TAB PO SCH (21:01)
[2024-02-20] MEDS: MELATONIN 3 MG TABLET PO PRN (23:03)
--- NOTE | 2024-02-21 05:26 | CA ---
Transthoracic Echo Report Name: Arash Warren Age: 78 Gender: M : 1945 Exam Date: 02/20/2024 15:58 Exam Location: [facility] Ht (in): 68 Wt (lb): 213 Ordering Physician: Pineda Estrella MD ([id number]) Attending/Referring Phys: Pile Driver Katerin Collier RDCS Procedure CPT: Indications: cardiomyopathy Cardiac Hx: Technical Quality: Fair Contrast 1: Total Dose (mL): Contrast 2: Total Dose (mL): MEASUREMENTS (Male / Female) Normal Values 2D ECHO LV Diastolic Diameter PLAX 4.2 cm 4.2 - 5.9 / 3.9 - 5.3 cm LV Systolic Diameter PLAX 3.3 cm IVS Diastolic Thickness 1.3 cm 0.6 - 1.0 / 0.6 - 0.9 cm LVPW Diastolic Thickness 1.3 cm 0.6 - 1.0 / 0.6 - 0.9 cm LV Relative Wall Thickness 0.6 LV Diastolic Volume MOD BP 121.6 cm??? 67 - 155 / 56 - 104 cm??? LV Systolic Volume MOD BP 65.3 cm??? 22 - 58 / 19 - 49 cm??? LV Ejection Fraction MOD BP 46.3 % >= 55 % LV Cardiac Index MOD BP 1780.5 cm???/min???m??? LV Diastolic Volume MOD 4C 122.9 cm??? LV Systolic Volume MOD 4C 64.8 cm??? LV Ejection Fraction MOD 4C 47.3 % LV Cardiac Index MOD 4C 1834.9 cm???/min???m??? LV Diastolic Length 4C 8.6 cm LV Systolic Length 4C 7.8 cm LV Diastolic Volume MOD 2C 115.8 cm??? LV Systolic Volume MOD 2C 64.0 cm??? LV Ejection Fraction MOD 2C 44.7 % LV Cardiac Index MOD 2C 1634.4 cm???/min???m??? LV Diastolic Length 2C 8.1 cm LV Systolic Length 2C 8.1 cm FINDINGS Left Ventricle Mildly increased septal wall thickness. Mildly increased left ventricular systolic volume. Mildly decreased left ventricular ejection fraction. Abnormal (paradoxical) septal motion consistent with postoperative state. Left ventricular ejection fraction is estimated at 40-45 %. Right Ventricle Right Atrium Left Atrium Mitral Valve Aortic Valve Tricuspid Valve Pulmonic Valve Pericardium No pericardial effusion. Aorta CONCLUSIONS Limited 2-D echo Mild increased left ventricular wall thickness Left ventricular ejection fraction 40-45% No pericardial effusion Previewed by: Dr. Harinder Mason DO (Electronically Signed) Final Date: 21 February 2024 05:25
[2024-02-21 05:59] LABS: ALT 29 U/L (4-49); AST 48 U/L (17-59); African American GFR (CKD) 48 (>60 ml/min/1.73 sqM); Albumin 2.6 g/dL (3.5-5.0); Alkaline Phosphatase 90 U/L (38-126); Anion Gap 5 mmol/L; Blood Urea Nitrogen 37 mg/dL (9-20); Calcium 7.9 mg/dL (8.4-10.2); Carbon Dioxide 25 mmol/L (22-30); Chloride 108 mmol/L (98-107); Glucose 153 mg/dL (74-99); Non-African American GFR(CKD) 41 (>60 ml/min/1.73 sqM); Potassium 3.7 mmol/L (3.5-5.1); Sodium 138 mmol/L (137-145); Total Bilirubin 1.4 mg/dL (0.2-1.3); Total Protein 4.6 g/dL (6.3-8.2)
--- NOTE | 2024-02-21 06:13 | P.PN ---
Subjective HISTORY OF PRESENTING ILLNESS Patient is an 78-year-old male with a past medical history of A-fib anticoagulated with Eliquis, hypertension, diabetes mellitus type 2, prostate cancer. He is postop day 3 of coronary artery bypass grafting x 3 with POSADA to LAD, sequential saphenous vein graft to first and second obtuse marginal coronary arteries, endovascular vein harvest, mitral valve repair with 28 mm annular flex band, percutaneous placement of intra-aortic balloon pump via right common femoral artery, modified Vazquez-Maze with complete left-sided lesion set using RF and cryoablation both epi and intracardiac, and ligation of the left atrial appendage with 2 layer suture closure. Balloon pump removed. 02/20 Patient seen and examined. Patient went for Micra pacemaker implantation yesterday with adequate sensing and pacing parameters. He currently is ventricular paced. He did have significant difficulty laying flat and additional Lasix 20 mg IV was given. He is still rhonchorous and coughing up sputum. No fevers or chills. He was placed on antibiotics. He denies any chest pain or pressure however is short of breath. Limited 2-D echo was performed which showed EF 40-45% with no pericardial effusion PHYSICAL EXAMINATION Vital signs reviewed. CONSTITUTIONAL: No apparent distress. HEENT: Head is normocephalic. Pupils are equal, round. Sclerae anicteric. Mucous membranes of the mouth are moist. No carotid bruit. CHEST EXAMINATION: Decreased breath sounds bilaterally with rhonchi diffusely HEART EXAMINATION: Regular rate and rhythm. S1, S2 heard. +2/6 systolic murmur, no gallops or rub. ABDOMEN: Soft, nontender. Positive bowel sounds. EXTREMITIES: 2+ peripheral pulses, no lower extremity edema and no calf tenderness. NEUROLOGIC EXAMINATION: Patient is awake, alert and oriented x3. ASSESSMENT 1. Severe mitral valve regurgitation, status post mitral valve repair with 28 mm annular flex band. 2. Coronary artery disease status post coronary artery bypass grafting x 3 with left internal mammary artery to the left anterior sending coronary artery. 3. Persistent paroxysmal atrial fibrillation status post modified Vazquez-Maze with complete left-sided lesion set using radiofrequency and cryoablation both epicardial and intracardiac, and ligation of the left atrial appendage with 2 layer suture closure. 4. Acute on chronic congestive heart failure with reduced ejection fraction; EF 25 to 30%, status post percutaneous placement of intra-aortic balloon pump via right common femoral artery, and subsequent removal of intra-aortic balloon pump on 02/16/2024. 5. History of hypertension. 6. Symptomatic bradycardia, with brief CPR, s/p Micra PPM 02/19 7. Chronic kidney disease stage IIIb, with a preoperative creatinine of 2.24. 8. Diabetes mellitus type 2. 9. Prostate cancer status post radiation treatment several years ago. 10. History remote history of nicotine dependence quit smoking 45 years ago. 11. Post op anemia 12. Acute on chronic respiratory failure Plan: Patient is status post Micra pacemaker implantation. Functioning normally. Echo shows mild improvement in ejection fraction 40-45% with no significant pericardial effusion. Patient still with significant respiratory failure and x-ray with poor inspiration diffuse pulmonary vascular congestion and possible infiltrate. Monitor ins and outs with only -800 mL yesterday. Continue with IV Lasix however it has worsened respiratory status likely increased diuresis. If ambiguity consider repeating right heart catheterization, Anson-Julius catheter. Appears to be slowly improving however. Heart failure regimen as able with meto prolol of her borderline blood pressures and hydralazine was discontinued. Monitor creatinine and hemoglobin closely. Further recommendations to follow. Objective - Vital Signs Vital signs: Vital Signs Temp 98.5 F 02/21/24 00:00 Pulse 66 02/21/24 04:00 Resp 18 02/21/24 04:00 BP 100/61 02/21/24 04:00 Pulse Ox 94 L 02/21/24 04:00 FiO2 40 02/16/24 10:06 Intake & Output 02/20/24 02/20/24 02/21/24 06:59 18:59 06:59 Intake Total 222 1380 422 Output Total 1170 1760 870 Balance -946 -380 -178 Weight 101 kg Intake: IV 420 200 Piperacillin-Tazobactam 3 100 200 .375 gm In Sodium Chloride 0.9% 100 ml @ 25 mls/hr IVPB Q8H [facility] Rx#: [id number] Vancomycin 1,000 mg In 250 Sodium Chloride 0.9% 250 ml @ 125 mls/hr IVPB ONCE ONE Rx#:[id number] Oral 222 960 222 Output: Urine 1170 1760 870 Other: Voiding Method Indwelling Catheter Indwelling Catheter Indwelling Catheter ABP, PAP, CO, CI - Last Documented Arterial Blood Pressure 100/40 Pulmonary Artery Pressure 33/10 Cardiac Output 3.6 Cardiac Index 1.8 - Labs CBC & Chem 7: 02/20/24 05:53 02/21/24 05:14 Labs: Abnormal Lab Results - Last 24 Hours (Table) 02/20/24 02/20/24 02/20/24 Range/Units 05:53 05:53 06:15 RBC 2.55 L (4.30-5.90) m/uL Hgb 7.8 L (13.0-17.5) gm/dL Hct 24.2 L (39.0-53.0) % RDW 18.8 H (11.5-15.5) % Sodium 135 L (137-145) mmol/L Chloride (98-107) mmol/L BUN 44 H (9-20) mg/dL Creatinine 1.81 H (0.66-1.25) mg/dL Glucose 168 H (74-99) mg/dL POC Glucose (mg/dL) 186 H (70-110) mg/dL Calcium 8.3 L (8.4-10.2) mg/dL Total Bilirubin (0.2-1.3) mg/dL Total Protein (6.3-8.2) g/dL Albumin (3.5-5.0) g/dL 02/20/24 02/20/24 02/20/24 Range/Units 13:52 16:56 20:55 RBC (4.30-5.90) m/uL Hgb (13.0-17.5) gm/dL Hct (39.0-53.0) % RDW (11.5-15.5) % Sodium (137-145) mmol/L Chloride (98-107) mmol/L BUN (9-20) mg/dL Creatinine (0.66-1.25) mg/dL Glucose (74-99) mg/dL POC Glucose (mg/dL) 220 H 217 H 203 H (70-110) mg/dL Calcium (8.4-10.2) mg/dL Total Bilirubin (0.2-1.3) mg/dL Total Protein (6.3-8.2) g/dL Albumin (3.5-5.0) g/dL 02/21/24 Range/Units 05:14 RBC (4.30-5.90) m/uL Hgb (13.0-17.5) gm/dL Hct (39.0-53.0) % RDW (11.5-15.5) % Sodium (137-145) mmol/L Chloride 108 H (98-107) mmol/L BUN 37 H (9-20) mg/dL Creatinine 1.56 H (0.66-1.25) mg/dL Glucose 153 H (74-99) mg/dL POC Glucose (mg/dL) (70-110) mg/dL Calcium 7.9 L (8.4-10.2) mg/dL Total Bilirubin 1.4 H (0.2-1.3) mg/dL Total Protein 4.6 L (6.3-8.2) g/dL Albumin 2.6 L (3.5-5.0) g/dL Microbiology - Last 24 Hours (Table) 02/19/24 11:35 Gram Stain - Preliminary Sputum Sputum Culture - Preliminary Enterobacter cloacae Complex
[2024-02-21 06:15] LABS: Anisocytosis Slight; Basophils % (A) 0 %; Eosinophils # (A) 0.1 k/uL (0-0.7); Eosinophils % (A) 2 %; HCT 20.4 % (39.0-53.0); Hypochromasia Marked; Lymphocytes # (A) 0.6 k/uL (1.0-4.8); Lymphocytes % (A) 14 %; MCH 29.9 pg (25.0-35.0); MCHC 31.5 g/dL (31.0-37.0); MCV 95.2 fL (80.0-100.0); Macrocytosis Slight; Mean Platelet Volume 8.6; Monocytes # (A) 0.4 k/uL (0-1.0); Monocytes % (A) 8 %; Neutrophils # (A) 3.4 k/uL (1.3-7.7); Neutrophils % (A) 74 %; Platelet Count 159 k/uL (150-450); Poikilocytosis Slight; RBC 2.14 m/uL (4.30-5.90); RDW 18.7 % (11.5-15.5); WBC 4.5 k/uL (3.8-10.6)
[2024-02-21 06:21] LABS: HGB 6.4 gm/dL (13.0-17.5)
[2024-02-21 06:46] LABS: Glucose,Whole Blood 189 mg/dL (70-110)
[2024-02-21] MEDS: POTASSIUM CHLORIDE ER 20 MEQ TAB.ER PO SCH (06:48)
[2024-02-21] MEDS: bisacodyL 10 MG SUPP RECTAL PRN (06:48)
--- NOTE | 2024-02-21 07:45 | XR ---
EXAMINATION TYPE: XR chest 2V DATE OF EXAM: 02/21/2024 COMPARISON: 02/20/2024 INDICATION: Stopped cardiac surgery TECHNIQUE: Frontal and lateral views of the chest are obtained. FINDINGS: The heart size is prominent. The pulmonary vasculature is normal. Small right pleural effusion is present. Some atelectasis is at the left costophrenic angle. This has improved from comparison. IMPRESSION: 1. Small right pleural effusion. 2. Improving left costophrenic angle infiltrate likely atelectasis.
[2024-02-21 08:07] LABS: Anisocytosis Slight; HCT 22.5 % (39.0-53.0); Hypochromasia Marked; MCH 29.8 pg (25.0-35.0); MCHC 31.4 g/dL (31.0-37.0); MCV 94.9 fL (80.0-100.0); Macrocytosis Slight; Mean Platelet Volume 8.7; Platelet Count 208 k/uL (150-450); Poikilocytosis Slight; RBC 2.37 m/uL (4.30-5.90); RDW 18.4 % (11.5-15.5)
--- NOTE | 2024-02-21 08:34 | P.PN ---
Subjective Progress Note Date: 02/21/24 Principal diagnosis: Severe mitral valve regurgitation, acute on chronic diastolic congestive heart failure, coronary artery disease and persistent with previous non-STEMI, and par oxysmal atrial fibrillation. Past medical history significant for anemia without any evidence of acute GI bleed status post upper and lower endoscopy, chronic kidney disease stage III-IV, hypertension, diabetes mellitus type 2, obstructive sleep apnea with noncompliance of CPAP use, obesity with a BMI of 31.8 kg/m, prostate cancer status post 45 radiation treatments several years ago, frequent diarrhea, hard of hearing, and remote history of nicotine dependence in which she quit smoking 45 years ago. POD #6 Coronary artery bypass grafting x 3 with left internal mammary artery to the left anterior sending coronary artery, sequential saphenous vein graft to first and second obtuse marginal coronary arteries, endovascular vein harvest left leg, mitral valve repair with 28 mm annular flex band, percutaneous placement of intra-aortic balloon pump via right common femoral artery, modified Vazquez-Maze with complete left-sided lesion set using radiofrequency and cryoablation both epicardial and intracardiac, and ligation of the left atrial appendage with 2 layer suture closure. Postoperative acute blood loss anemia, expected given cardiopulmonary bypass, hemodilution and preoperative history of anemia. Status post day #2 Symptomatic bradycardia, with brief CPR, s/p Micra PPM 02/20/[address] Estrella. The patient was seen and examined in follow-up today February 21, 2024 at his bedside in the intensive care unit. He is currently sitting up to the bedside chair, is awake, alert, oriented x 3 and is in no acute apparent distress. He denies any complaints of pain or shortness of breath at this time, although continues to complain of a productive cough with tenacious arenas sputum. Sputum culture pulmonary report is showing positive for Enterobacter cloacae complex, and was started on Zosyn for IV antibiotic coverage yesterday. He continues to be afebrile and his WBC count today is 4.5. He remains hemodynamically stable and is currently on no inotropic or pressor support. Oxygen saturations are 98% on room air and he is achieving 1250 to 1500 mL on his incentive spirometry with encouragement. Bedside telemetry is currently showing normal sinus rhythm with a bundle branch block with a heart rate in the 70s, blood pressure is 118/70 mmHg. The patient did have a short episode of atrial fibrillation this morning with RVR heart rate in the 120s to 130s but converted on his own. Patient underwent Micra AV implant yesterday by Dr. Estrella. A limited transthoracic 2D echocardiogram was completed yesterday February 20, 2024 which showed a left ventricular ejection fraction estimated at 40 to 45%. Laboratory and chest x- ray results reviewed. Objective - Vital Signs Vital signs: Vital Signs Temp 98.5 F 02/21/24 00:00 Pulse 66 02/21/24 06:00 Resp 15 02/21/24 07:00 BP 116/62 02/21/24 07:00 Pulse Ox 97 02/21/24 07:00 FiO2 40 02/16/24 10:06 Intake & Output 02/20/24 02/21/24 02/21/24 18:59 06:59 18:59 Intake Total 1380 422 Output Total 1760 975 30 Balance -380 -553 -30 Weight 94.2 kg Intake: IV 420 200 Piperacillin-Tazobactam 3 100 200 .375 gm In Sodium Chloride 0.9% 100 ml @ 25 mls/hr IVPB Q8H [facility] Rx#: [id number] Vancomycin 1,000 mg In 250 Sodium Chloride 0.9% 250 ml @ 125 mls/hr IVPB ONCE ONE Rx#:[id number] Oral 960 222 Output: Urine 1760 975 30 Other: Voiding Method Indwelling Catheter Indwelling Catheter ABP, PAP, CO, CI - Last Documented Arterial Blood Pressure 100/40 Pulmonary Artery Pressure 33/10 Cardiac Output 3.6 Cardiac Index 1.8 - Exam CONSTITUTIONAL: Appears comfortable, cooperative, no apparent acute distress. HEENT: Neck is supple, no JVD, no lymphadenopathy. RESPIRATORY: Lungs sounds with few scattered rhonchi throughout, diminished to his bilateral bases. Currently on room air with oxygen saturations 98%. Able to achieve 2681-9283 mL on his incentive spirometry. Strong productive cough. CARDIOVASCULAR: Regular rhythm and rate. S1 and S2 present, negative for S3, gallop or murmur. Bedside telemetry is showing normal sinus rhythm with a bundle branch block heart rate 70 bpm. Sternum is stable. Palpable peripheral pulses bilaterally. No calf pain or tenderness noted. Heart hugger in place, demonstrating appropriate use. Knee-high RAYMUNDO hose and sequential compression devices in place to his bilateral lower extremities. GASTROINTESTINAL: Abdomen soft, nontender, nondistended. Active bowel sounds present 4 quadrants. Tolerating diet. No guarding or rigidity. Bowel movement this a.m. February 21, 2024. GENITOURINARY: Jones present draining clear, yellow urine. Urine output 595 mL in the last 8 hours. INTEGUMENTARY: Skin is warm and dry with no evidence of clubbing or cyanosis. Midline sternal incision clean dry and well approximated, covered with dry intact dressing. Left lower extremity EVH sites well approximated without redness or drainage. Bilateral groin sites clean dry. Sutures in place to right groin. NEUROLOGIC: No focal deficits. MUSKULOSKELETAL: Able to move all extremities, strength equal bilaterally, generalized weakness. PSYCHIATRIC: Alert and oriented to person place and time, appropriate affect, intact judgment and insight. INVASIVE LINES AND TUBES: Atrial and ventricular epicardial pacemaker wires present, and are grounded. - Allied health notes Allied health notes reviewed: nursing - Labs CBC & Chem 7: 02/21/24 06:44 02/21/24 05:14 Labs: Abnormal Lab Results - Last 24 Hours (Table) 02/20/24 02/20/24 02/20/24 Range/Units 13:52 16:56 20:55 RBC (4.30-5.90) m/uL Hgb (13.0-17.5) gm/dL Hct (39.0-53.0) % RDW (11.5-15.5) % Lymphocytes # (1.0-4.8) k/uL Chloride (98-107) mmol/L BUN (9-20) mg/dL Creatinine (0.66-1.25) mg/dL Glucose (74-99) mg/dL POC Glucose (mg/dL) 220 H 217 H 203 H (70-110) mg/dL Calcium (8.4-10.2) mg/dL Total Bilirubin (0.2-1.3) mg/dL Total Protein (6.3-8.2) g/dL Albumin (3.5-5.0) g/dL 02/21/24 02/21/24 02/21/24 Range/Units 05:14 05:14 06:45 RBC 2.14 L (4.30-5.90) m/uL Hgb 6.4 L* (13.0-17.5) gm/dL Hct 20.4 L (39.0-53.0) % RDW 18.7 H (11.5-15.5) % Lymphocytes # 0.6 L (1.0-4.8) k/uL Chloride 108 H (98-107) mmol/L BUN 37 H (9-20) mg/dL Creatinine 1.56 H (0.66-1.25) mg/dL Glucose 153 H (74-99) mg/dL POC Glucose (mg/dL) 189 H (70-110) mg/dL Calcium 7.9 L (8.4-10.2) mg/dL Total Bilirubin 1.4 H (0.2-1.3) mg/dL Total Protein 4.6 L (6.3-8.2) g/dL Albumin 2.6 L (3.5-5.0) g/dL Microbiology - Last 24 Hours (Table) 02/19/24 11:35 Gram Stain - Preliminary Sputum Sputum Culture - Preliminary Enterobacter cloacae Complex - Imaging and Cardiology Chest x-ray: report reviewed, image reviewed Assessment and Plan Assessment: Severe mitral valve regurgitation, status post mitral valve repair with 28 mm annular flex band Coronary artery disease status post coronary artery bypass grafting x 3 with left internal mammary artery to the left anterior sending coronary artery Paroxysmal atrial fibrillation status post modified Vazquez-Maze with complete left- sided lesion set using radiofrequency and cryoablation both epicardial and intracardiac, and ligation of the left atrial appendage with 2 layer suture closure Acute on chronic congestive heart failure, status post percutaneous placement of intra-aortic balloon pump via right common femoral artery, and subsequent removal of intra-aortic balloon pump on 02/16/2024 Chronic kidney disease stage IIIb, with a preoperative creatinine of 2.24 Chronic anemia without any evidence of acute GI bleed, status post recent upper and lower endoscopy Hypertension Diabetes mellitus type 2 with a preoperative hemoglobin A1c of 9.3% Obesity with a BMI of 31.8 kg/m Prostate cancer status post 45 radiation treatment several years ago Frequent diarrhea and inability to hold his bowel movements controlled with Imodium on an outpatient basis Remote history of nicotine dependence quit smoking 45 years ago, with her preoperative FEV1 63% of predicted value Obstructive sleep apnea with noncompliance of CPAP use Postoperative acute blood loss anemia, expected given cardiopulmonary bypass, hemodilution and his preoperative anemia Elevated transaminitis enzymes, resolved Medical debility Symptomatic bradycardia, with brief CPR, s/p Micra PPM 02/20/24 Plan: Continue to maximize medical therapy with aspirin, statin, metoprolol tartrate and Plavix. Metoprolol tartrate 25 mg p.o. twice daily has been started by Dr. Estrella. Will monitor daily labs and chest x-rays. Electrolyte replacement per protocol. Continue Lasix, potassium supplementation. Prealbumin result was 6.8. Encourage nutrition once pacemaker has been placed. Glucerna supplements have been started. Will start amiodarone 400 mg p.o. twice daily for atrial fibrillation prophylaxis. Encourage incentive spirometry use 10 times every hour while awake. Bron chodilators per pulmonology/critical care management. Continue Mucinex, Mucomyst nebulizer and Symbicort. Increase activity, ambulate as tolerated. PT/OT/cardiac rehab following. Patient walks with a walker at home. Pain control per current medication regimen. Avoid nephrotoxic agents Continue home dose of Nephrocaps nephrology also added sodium bicarb tablets 650 mg p.o. twice daily. Managed by nephrology. Insulin management per internal medicine. Preoperative hemoglobin A1c 9.3%. Needs tight glucose control to promote sternal union and healing. Remove Jones catheter today. Continue record strict and accurate I's and O's. Bladder scan every 6 hours and as needed postvoid residuals, if greater than 300 mL of urine may straight cath. Daily weights. Shower daily. Hydralazine has been discontinued by cardiology. Continue Lasix 20 mg IV every 8 hours and potassium 20 mill equivalents p.o. daily while on Lasix. Continue atrial and ventricular epicardial pacemaker wires, may ground wires. More recommendations to follow based on patient's clinical course. Time with Patient: Greater than 30
[2024-02-21] MEDS: DEXTROSE 5% IN WATER 100 ML with AMIODARONE 150 MG IV ONE (08:45)
[2024-02-21] MEDS: AMIODARONE 360 MG in DEXTROSE 5% IN WATER 200 ML IV ONE (08:45)
[2024-02-21] MEDS ORDERED: AMIODARONE 200 MG TAB PO SCH (09:00)
--- NOTE | 2024-02-21 09:33 | P.PN ---
Subjective Progress Note Date: 02/21/24 Patient is a-year-old white male with past medical history significant for prostate cancer, diabetes mellitus, hypertension, angina, atrial fibrillation normally anticoagulated on Eliquis. Of note, patient had a recent hospitalization 12/24/2023 where he did have an extensive cardiac workup. He was found to have multivessel coronary artery disease and severe mitral regurgitation. Cardiac cath done on 12/28/2023 demonstrates 80% mid LAD stenosis, 90% mid OM2 disease, and moderate diffuse disease in the PDA. Cardiothoracic team was asked to evaluate this patient up for potential open heart surgery. Echocardiogram done the same admission showed a left ventricular ejection fraction estimated at 25 to 30%, as well as, moderate to severe mitral valve regurgitation. Patient underwent open heart surgery yesterday 02/15/2024 including coronary artery bypass grafting x 3 with POSADA to LAD, sequential saphenous vein graft to first and second obtuse marginal coronary arteries, mitral valve repair with 28 mm annular flex band, modified Vazquez-Maze with completed left sided lesion set using RF and cryoablation, ligation of left atrial appendage, and percutaneous placement of intra-aortic balloon pump. Patient was transferred to the intensive care unit postoperatively in critical condition. Or exit time documented at 1430. He did have a 2 L EBL. Status post 4 units PRBC, 2 FFP, 2 platelets, 1.5 L albumin, and 1200 mL Cell Saver. He remains intubated to mechanical ventilator. Postoperative chest x-ray shows mild pulmonary congestion and cardiomegaly, no pneumothorax. Endotracheal tube 2.6 cm above the clark. NG tube courses below the diaphragm. [place]-Julius catheter with tip projecting over the spine, mediastinal and left thoracotomy tubes in place. Postoperative ABG PaO2 204, pCO2 40, pH 7.36. Current ventilator settings including assist-control, respiratory rate 14, tidal volume 500, FiO2 50%, PEEP of 5. Peak pressure 22, no significant airway secretions. Patient is lightly sedated on propofol which is currently infusing at 50 mcg/kg/min. He does awaken to verbal stimuli, follows all commands, moves all 4 extremities equally. Reportedly has not been extubated at this point, due to increased vasopressor requirements. He is on a one-to-one balloon pump with augmented pressure of 87 mean pressure 65. CI 2.4/CO 4.8. Pulmonary artery pressure 47/22. CVP 14. Milrinone infusing at 0.2 mcg/kg/min. Norepinephrine infusing at 0.04 mcg/kg/min. Normal saline also infusing at 50 mL/h. Insulin per protocol. He does have an epicardial pacemaker wires, currently DDI settings at a rate of 80 bpm. Patient does have 2 mediastinal chest tubes hooked to an atrium with 470 mL of serosanguineous output at this point in time. Left pleural chest tube has a total of 180 mL of serosanguineous output. These are both to negative 20 cm H2O suction. No obvious air leak. Urinary catheter is in place, draining adequate urine output in the order of 30 to 40 mL/h. Most recent CBC: WBC count 5.9, hemoglobin 8, hematocrit 24.8, platelets 127. Coagulation profile including PT 13.6, INR 1.3, APTT 28.6, fibrinogen 215. CMP: Sodium 141, potassium 3.9, chloride 111, serum bicarb 23, BUN 33, creatinine 1.56, glucose 149. Ionized calcium 5. AST 194, ALT 95, ALP 56. Plan is to pursue extubation later this morning. The patient is seen today February 17, 2024 in follow-up in the intensive care unit. Postoperative day #2. He is currently sitting up in chair at the [facility]. Awake and alert in no acute distress. Chest x-ray continues to show some atelectasis and small effusions bilaterally. He is a good encouraged regarding the increased use of the incentive spirometer. Cardiac output 6.1. Cardiac index 3.1. He is on normal saline at 30 mL/h. Primacor was discontinued this morning. He remains on insulin drip at 6 units/h. Mediastinal and left chest tubes remain in place. White count 10.0. Hemoglobin 7.3. Platelets 116. Sodium 140. Potassium 3.9. Bicarb 22. BUN 26. Creatinine 1.68. Glucose 123. He remains on DuoNeb inhalations, Symbicort, Mucinex. Heparin for DVT prophylaxis. The patient is seen today February 18, 2024 in follow-up in the intensive care unit. Postoperative day #3. He is awake and alert in no acute distress. Maintaining good O2 saturations in the mid 90s on room air. He is afebrile. Hemodynamically stable. Sitting up in a chair at the bedside. He has been on several walks yesterday and earlier today. He is doing well. Working well with the incentive spirometer. No worsening shortness of breath, cough or congestion. This x-ray continues to show mild pulmonary edema. Mediastinal and left chest tubes in place. Cordis in place. He has normal saline at 30 mL/h. White count 8.4. Hemoglobin 7.3. Platelets 132. Sodium 135. Potassium 4.3. Bicarb 18. BUN 33. Creatinine 1.78. Glucose 136. AST 110. ALT 44. He remains on DuoNeb inhalations. Heparin for DVT prophylaxis. He remains on Lasix 20 mg IV every 8 hours. He is currently in a +1.5 L balance. The patient is seen today February 19, 2024 in follow-up in the intensive care unit. Postoperative day #4. He is currently sitting up in a chair. Awake and alert in no acute distress. Maintaining O2 saturations in the 90s on room air. No IV fluids. His chest x-ray is showing improvement in the pulmonary congestion. He is doing better with the incentive spirometer currently pulling 1250 mL. He remains on IV diuretics. In a positive balance still. He is continued on bronchodilators. Heparin for DVT prophylaxis. White count 5.7. Hemoglobin 7.0. Platelets 132. Sodium 135. Potassium 3.7. Bicarb 18. BUN 46. Creatinine 2.17. Glucose 114. The patient is seen today February 20, 2024 in follow-up in the intensive care unit. Postoperative day #5. He is currently resting comfortably in bed. Awake and alert in no acute distress. He did have a significant event yesterday while up to the shower went unresponsive and required 1 minute of CPR and resumption of temporary pacing and recovered. Plan is for permanent pacemaker implantation today. Chest x-ray shows worsening mild bibasilar infiltrates. He is working with the incentive spirometer. He is maintaining O2 saturations in the 90s on room air. He is status post 4 units of packed red blood cells, 2 units of fresh frozen plasma and 2 units of platelets this admission. White count 5.4. Hemoglobin 7.8. Platelets 163. Sodium 135. Potassium 4.2. Bicarb 22. BUN 44. Creatinine 1.81. Glucose 168. He is continued on DuoNeb inhalations, Symbicort, IV diuretics. Heparin for DVT prophylaxis. He is currently in a - 1.1 L balance. The patient is seen today February 21, 2024 in follow-up in the intensive care unit. Postoperative day #6. He is currently sitting up at the bedside. Awake and alert in no acute distress. He did undergo permanent pacemaker implantation yesterday. He is still having issues with atrial fibrillation with rapid ventricular response and is receiving amiodarone bolus and subsequent amiodarone infusion. His hemoglobin is 7.0. He is pale. White count 6.0. Platelets 208. Sodium 138. Potassium 3.7. Bicarb 25. BUN 37. Creatinine 1.56. Glucose 153. O2 saturations in the mid 90s on room air. He is been afebrile. Chest x-ray shows a small right pleural effusion. Improved left costophrenic angle infiltrate likely atelectasis. He continues to work well with his incentive spirometer. Follow-up echocardiogram revealed mildly impaired left ventricular systolic function with ejection fraction of 40 to 45%. He remains on DuoNeb and elations, Symbicort. Remains on IV diuretics. Heparin for DVT prophylaxis. A ntibiotics in the form of Zosyn. Sputum culture was positive for Enterobacter cloacae. Objective - Vital Signs Vital signs: Vital Signs Temp 98.3 F 02/21/24 08:00 Pulse 67 02/21/24 09:00 Resp 18 02/21/24 09:00 BP 85/64 02/21/24 09:00 Pulse Ox 95 02/21/24 09:00 FiO2 40 02/16/24 10:06 Intake & Output 02/20/24 02/21/24 02/21/24 18:59 06:59 18:59 Intake Total 1380 422 500 Output Total 1760 975 165 Balance -380 553 335 Weight 94.2 kg Intake: IV 420 200 Piperacillin-Tazobactam 3 100 200 .375 gm In Sodium Chloride 0.9% 100 ml @ 25 mls/hr IVPB Q8H [facility] Rx#: [id number] Vancomycin 1,000 mg In 250 Sodium Chloride 0.9% 250 ml @ 125 mls/hr IVPB ONCE ONE Rx#:[id number] Oral 960 222 500 Output: Urine 1760 975 165 Other: Voiding Method Indwelling Catheter Indwelling Catheter ABP, PAP, CO, CI - Last Documented Arterial Blood Pressure 100/40 Pulmonary Artery Pressure 33/10 Cardiac Output 3.6 Cardiac Index 1.8 - Exam GENERAL EXAM: Awake, alert, pale 78-year-old male patient, on room air, up in a chair, in no acute distress. HEAD: Normocephalic and atraumatic EYES: Normal reaction of pupils, equal size. NOSE: Clear with pink turbinates. THROAT: No erythema or exudates. NECK: No masses, no JVD. CHEST: Midstern incision dressed with postoperative dressing clean, dry, intact. Pacemaker site dressing clean and dry. LUNGS: Equal air entry with few scattered rhonchi. CVS: S1 and S2 normal with no audible murmur, irregular rhythm. ABDOMEN: No hepatosplenomegaly, active bowel sounds, no guarding or rigidity. SPINE: No scoliosis or deformity SKIN: No rashes CENTRAL NERVOUS SYSTEM: No focal deficits, tone is normal in all 4 extremities. EXTREMITIES: Distal pulses intact. Legs with sequential compression devices. - Labs CBC & Chem 7: 02/21/24 06:44 02/21/24 05:14 Labs: Abnormal Lab Results - Last 24 Hours (Table) 02/20/24 02/20/24 02/20/24 Range/Units 13:52 16:56 20:55 RBC (4.30-5.90) m/uL Hgb (13.0-17.5) gm/dL Hct (39.0-53.0) % RDW (11.5-15.5) % Lymphocytes # (1.0-4.8) k/uL Chloride (98-107) mmol/L BUN (9-20) mg/dL Creatinine (0.66-1.25) mg/dL Glucose (74-99) mg/dL POC Glucose (mg/dL) 220 H 217 H 203 H (70-110) mg/dL Calcium (8.4-10.2) mg/dL Total Bilirubin (0.2-1.3) mg/dL Total Protein (6.3-8.2) g/dL Albumin (3.5-5.0) g/dL 02/21/24 02/21/24 02/21/24 Range/Units 05:14 05:14 06:44 RBC 2.14 L 2.37 L (4.30-5.90) m/uL Hgb 6.4 L* 7.0 L (13.0-17.5) gm/dL Hct 20.4 L 22.5 L (39.0-53.0) % RDW 18.7 H 18.4 H (11.5-15.5) % Lymphocytes # 0.6 L (1.0-4.8) k/uL Chloride 108 H (98-107) mmol/L BUN 37 H (9-20) mg/dL Creatinine 1.56 H (0.66-1.25) mg/dL Glucose 153 H (74-99) mg/dL POC Glucose (mg/dL) (70-110) mg/dL Calcium 7.9 L (8.4-10.2) mg/dL Total Bilirubin 1.4 H (0.2-1.3) mg/dL Total Protein 4.6 L (6.3-8.2) g/dL Albumin 2.6 L (3.5-5.0) g/dL 02/21/24 Range/Units 06:45 RBC (4.30-5.90) m/uL Hgb (13.0-17.5) gm/dL Hct (39.0-53.0) % RDW (11.5-15.5) % Lymphocytes # (1.0-4.8) k/uL Chloride (98-107) mmol/L BUN (9-20) mg/dL Creatinine (0.66-1.25) mg/dL Glucose (74-99) mg/dL POC Glucose (mg/dL) 189 H (70-110) mg/dL Calcium (8.4-10.2) mg/dL Total Bilirubin (0.2-1.3) mg/dL Total Protein (6.3-8.2) g/dL Albumin (3.5-5.0) g/dL Microbiology - Last 24 Hours (Table) 02/19/24 11:35 Gram Stain - Final Sputum Sputum Culture - Final Enterobacter cloacae Complex Assessment and Plan Assessment: Postoperative day #6 following coronary artery bypass grafting x 3 with POSADA to LAD, sequential saphenous vein graft to first and second obtuse marginal coronary arteries, mitral valve repair with 28 mm annular flex band, modified Vazquez-Maze with completed left sided lesion set using RF and cryoablation, ligation of left atrial appendage, and percutaneous placement of intra-aortic balloon pump. Balloon pump removed. Brief cardiac arrest on 02/19/2024 requiring 1 minute of CPR and resumption of pacing. Permanent pacemaker placed 02/20/2024. Routine mechanical ventilator management and subsequent extubation. Today's chest x-ray shows improvement in the pulmonary congestion and cardiomegaly, no pneumothorax. Atrial fibrillation with a rapid ventricular response, receiving amiodarone Multivessel coronary artery disease History of severe mitral valve regurgitation Acute blood loss anemia, expected outcome of surgery, Status post 4 units PRBC, 2 FFP, 2 platelets, 1.5 L albumin, and 1200 mL Cell Saver. Current hemoglobin 7.0 Acute kidney injury, secondary to hypotension and ATN improving Diabetes mellitus type 2 History of atrial fibrillation, normally anticoagulated on Eliquis, status post synchronized cardioversion on 12/31/2023 History of hypertension Former tobacco smoker History of prostate cancer with previous radiation Plan: The patient was seen and evaluated Chest x-ray, labs and medications reviewed Currently stable and on room air Continue bronchodilators, diuretics Receiving amiodarone bolus, followed by drip Continue the current treatment plan We will continue to follow I have personally seen and examined the patient, performed the documentation and the assessment and plan as written. Number of minutes spent on the visit: 10.
--- NOTE | 2024-02-21 10:58 | P.PN ---
Subjective patient is seen for follow-up for chronic kidney disease. Status post coronary artery bypass surgery. Status post pacemaker placement yesterday. No significant complaints. serum creatinine at 1.5 mg/dL. Lasix remains at 20 mg IV every 8 hours. Patient developed A. fib with RVR early this morning and is maintained on amiodarone drip. Objective - Vital Signs Vital signs: Vital Signs Temp 98.3 F 02/21/24 08:00 Pulse 65 02/21/24 10:00 Resp 26 H 02/21/24 10:00 BP 104/58 02/21/24 10:00 Pulse Ox 97 02/21/24 10:00 FiO2 40 02/16/24 10:06 Intake & Output 02/20/24 02/21/24 02/21/24 18:59 06:59 18:59 Intake Total 1380 422 600 Output Total 1760 975 215 Balance -380 -553 385 Weight 94.2 kg Intake: IV 420 200 100 Piperacillin-Tazobactam 3 100 200 100 .375 gm In Sodium Chloride 0.9% 100 ml @ 25 mls/hr IVPB Q8H [facility] Rx#: [id number] Vancomycin 1,000 mg In 250 Sodium Chloride 0.9% 250 ml @ 125 mls/hr IVPB ONCE ONE Rx#:[id number] Oral 960 222 500 Output: Urine 1760 975 215 Other: Voiding Method Indwelling Catheter Indwelling Catheter Indwelling Catheter # Bowel Movements 1 ABP, PAP, CO, CI - Last Documented Arterial Blood Pressure 100/40 Pulmonary Artery Pressure 33/10 Cardiac Output 3.6 Cardiac Index 1.8 - Exam awake, comfortable, no acute distress Alert oriented 3 Examination of the heart S1 and S2 Examination of the lungs bilateral breath sounds are heard Abdomen is soft nontender Examination of lower extremities shows no significant edema - Labs CBC & Chem 7: 02/21/24 06:44 02/21/24 05:14 Labs: Abnormal Lab Results - Last 24 Hours (Table) 02/20/24 02/20/24 02/20/24 Range/Units 13:52 16:56 20:55 RBC (4.30-5.90) m/uL Hgb (13.0-17.5) gm/dL Hct (39.0-53.0) % RDW (11.5-15.5) % Lymphocytes # (1.0-4.8) k/uL Chloride (98-107) mmol/L BUN (9-20) mg/dL Creatinine (0.66-1.25) mg/dL Glucose (74-99) mg/dL POC Glucose (mg/dL) 220 H 217 H 203 H (70-110) mg/dL Calcium (8.4-10.2) mg/dL Total Bilirubin (0.2-1.3) mg/dL Total Protein (6.3-8.2) g/dL Albumin (3.5-5.0) g/dL 02/21/24 02/21/24 02/21/24 Range/Units 05:14 05:14 06:44 RBC 2.14 L 2.37 L (4.30-5.90) m/uL Hgb 6.4 L* 7.0 L (13.0-17.5) gm/dL Hct 20.4 L 22.5 L (39.0-53.0) % RDW 18.7 H 18.4 H (11.5-15.5) % Lymphocytes # 0.6 L (1.0-4.8) k/uL Chloride 108 H (98-107) mmol/L BUN 37 H (9-20) mg/dL Creatinine 1.56 H (0.66-1.25) mg/dL Glucose 153 H (74-99) mg/dL POC Glucose (mg/dL) (70-110) mg/dL Calcium 7.9 L (8.4-10.2) mg/dL Total Bilirubin 1.4 H (0.2-1.3) mg/dL Total Protein 4.6 L (6.3-8.2) g/dL Albumin 2.6 L (3.5-5.0) g/dL 02/21/24 Range/Units 06:45 RBC (4.30-5.90) m/uL Hgb (13.0-17.5) gm/dL Hct (39.0-53.0) % RDW (11.5-15.5) % Lymphocytes # (1.0-4.8) k/uL Chloride (98-107) mmol/L BUN (9-20) mg/dL Creatinine (0.66-1.25) mg/dL Glucose (74-99) mg/dL POC Glucose (mg/dL) 189 H (70-110) mg/dL Calcium (8.4-10.2) mg/dL Total Bilirubin (0.2-1.3) mg/dL Total Protein (6.3-8.2) g/dL Albumin (3.5-5.0) g/dL Microbiology - Last 24 Hours (Table) 02/19/24 11:35 Gram Stain - Final Sputum Sputum Culture - Final Enterobacter cloacae Complex Assessment and Plan Assessment: 1. Chronic kidney disease stage IIIb secondary to diabetic kidney disease with baseline creatinine 1.5-2. 2. Coronary artery disease status post CABG x 3 and mitral valve repair February 15, 2024. 3. Diabetes mellitus. 4. Anemia of chronic kidney disease with component of acute blood loss post CABG. on Aranesp. 5. Metabolic acidosis secondary to chronic kidney disease and IV fluids. On o ral bicarb. 6. Chronic systolic CHF. 7. Mild volume overload. On IV Lasix. 8. Acute kidney injury secondary to vasomotor nephropathy from diuresis. improved. Plan: continue current dose of IV Lasix increase Aranesp
[2024-02-21 11:25] LABS: Glucose,Whole Blood 244 mg/dL (70-110)
[2024-02-21] MEDS: DARBEPOETIN ALFA 100MCG/0.5ML SYRINGE SQ SCH (12:45)
--- NOTE | 2024-02-21 14:34 | P.PN ---
Subjective Interval History: patient is a 78-year-old gentleman with past medical history significant for prostate cancer, diabetes mellitus, hypertension, angina, atrial fibrillation normally anticoagulated on Eliquis, recent cardiac workup showing multivessel coronary disease and severe MR who presented to the hospital for open heart surgery. Patient underwent coronary artery bypass grafting x 3 with POSADA to LAD, sequential saphenous vein graft to first and second obtuse marginal coronary arteries, mitral valve repair with 28 mm annular flex band, modified Vazquez-Maze with completed left sided lesion set using RF and cryoablation, ligation of left atrial appendage, and percutaneous placement of intra-aortic balloon pump. Patient was admitted to ICU. Internal medicine team were consulted for medical management. 02/19--- patient was seen and examined today. Patient underwent placement of pacemaker today by EP. Family at bedside. Patient denies any issues overnight. Pain is controlled. Patient currently on Zosyn, respiratory culture growing Enterobacter. ICU following. 02/20-patient was seen and examined today. No issues overnight. Remained afebrile, heart rate 62, respiratory rate 20, blood pressure on the lower side 102/56. Hemoglobin was low 6.4, recheck 7.0, will continue to monitor. Blood sugar elevated, will increase Levemir to 15 units daily. Assessment and plan: coronary artery bypass grafting x 3 with POSADA to LAD, sequential saphenous vein graft to first and second obtuse marginal coronary arteries, mitral valve repair with 28 mm annular flex band, modified Vazquez-Maze with completed left sided lesion set using RF and cryoablation, ligation of left atrial appendage, and percutaneous placement of intra-aortic balloon pump. Status post pacemaker placement:02/19 Postop vent dependent respiratory failure Multivessel coronary artery disease History of severe mitral valve regurgitation Acute blood loss anemia Acute kidney injury PNA: Diabetes mellitus type 2 History of atrial fibrillation History of hypertension Former tobacco smoker History of prostate cancer with previous radiation Monitor vital signs Monitor labs Continue telemetry monitoring Aggressive bronchopulmonary hygiene Continue vent management per ICU Continue vasopressor Continue insulin--Levemir, sliding scale insulin. CT surgery following ICU following Continue Zosyn. Labs and medication were reviewed.. Continue same treatment. Continue with symptomatic treatment. Resume home medication. Monitor labs and vitals. DVT and GI prophylaxis. Further recommendations as per clinical course of the patient PHYSICAL EXAMINATION: GENERAL: The patient is A&O x3, NAD HEENT: EOMI, Sclerae anicteric, Moist Mucous membranes Neck: Supple, Non tender, No JVD PULMONARY: Equal breath souds B/L, No wheezing, No crackles. CARDIOVASCULAR: S1, S2 present. No murmurs, rubs, or gallops. ABDOMEN: Soft, nontender, nondistended, normoactive bowel sounds. No guarding or rebound tenderness. MUSCULOSKELETAL: No edema, No cyanosis. No clubbing. Normal ROM. Intact peripheral pulses. EXTREMITIES: No cyanosis, clubbing, or pedal edema. NEUROLOGICAL: CN 2-12 grossly intact. No FND Skin: No Rash REVIEW OF SYSTEMS: CONSTITUTIONAL: No fever or chills. CARDIOVASCULAR: No chest pain, palpitations or syncope. PULMONARY: No shortness of breath, no cough, sore throat. GASTROINTESTINAL: No nausea, vomiting, diarrhea, abdominal pain. : No Dysuria, urgency, frequency. Extremities: No edema. NEUROLOGICAL: No headaches, no weakness, or numbness Dictation was produced using [employer] dictation software. please excuse any grammatical, word or spelling errors. Objective - Vital Signs Vital signs: Vital Signs Temp 96.3 F L 02/21/24 12:00 Pulse 62 02/21/24 14:00 Resp 20 02/21/24 14:00 BP 102/56 02/21/24 14:00 Pulse Ox 95 02/21/24 14:00 FiO2 40 02/16/24 10:06 Intake & Output 02/20/24 02/21/24 02/21/24 18:59 06:59 18:59 Intake Total 5702 405 9775 Output Total 1760 975 385 Balance -380 -553 1065 Weight 94.2 kg Intake: IV 420 200 200 Piperacillin-Tazobactam 3 100 200 200 .375 gm In Sodium Chloride 0.9% 100 ml @ 25 mls/hr IVPB Q8H [facility] Rx#: [id number] Vancomycin 1,000 mg In 250 Sodium Chloride 0.9% 250 ml @ 125 mls/hr IVPB ONCE ONE Rx#:[id number] Oral [id number] [id number] 2484 Output: Urine 1760 975 385 Other: Voiding Method Indwelling Catheter Indwelling Catheter Urinal # Bowel Movements 1 ABP, PAP, CO, CI - Last Documented Arterial Blood Pressure 100/40 Pulmonary Artery Pressure 33/10 Cardiac Output 3.6 Cardiac Index 1.8 - Labs CBC & Chem 7: 02/21/24 06:44 02/21/24 05:14 Labs: Abnormal Lab Results - Last 24 Hours (Table) 02/20/24 02/20/24 02/21/24 Range/Units 16:56 20:55 05:14 RBC 2.14 L (4.30-5.90) m/uL Hgb 6.4 L* (13.0-17.5) gm/dL Hct 20.4 L (39.0-53.0) % RDW 18.7 H (11.5-15.5) % Lymphocytes # 0.6 L (1.0-4.8) k/uL Chloride (98-107) mmol/L BUN (9-20) mg/dL Creatinine (0.66-1.25) mg/dL Glucose (74-99) mg/dL POC Glucose (mg/dL) 217 H 203 H (70-110) mg/dL Calcium (8.4-10.2) mg/dL Total Bilirubin (0.2-1.3) mg/dL Total Protein (6.3-8.2) g/dL Albumin (3.5-5.0) g/dL 02/21/24 02/21/24 02/21/24 Range/Units 05:14 06:44 06:45 RBC 2.37 L (4.30-5.90) m/uL Hgb 7.0 L (13.0-17.5) gm/dL Hct 22.5 L (39.0-53.0) % RDW 18.4 H (11.5-15.5) % Lymphocytes # (1.0-4.8) k/uL Chloride 108 H (98-107) mmol/L BUN 37 H (9-20) mg/dL Creatinine 1.56 H (0.66-1.25) mg/dL Glucose 153 H (74-99) mg/dL POC Glucose (mg/dL) 189 H (70-110) mg/dL Calcium 7.9 L (8.4-10.2) mg/dL Total Bilirubin 1.4 H (0.2-1.3) mg/dL Total Protein 4.6 L (6.3-8.2) g/dL Albumin 2.6 L (3.5-5.0) g/dL 02/21/24 Range/Units 11:24 RBC (4.30-5.90) m/uL Hgb (13.0-17.5) gm/dL Hct (39.0-53.0) % RDW (11.5-15.5) % Lymphocytes # (1.0-4.8) k/uL Chloride (98-107) mmol/L BUN (9-20) mg/dL Creatinine (0.66-1.25) mg/dL Glucose (74-99) mg/dL POC Glucose (mg/dL) 244 H (70-110) mg/dL Calcium (8.4-10.2) mg/dL Total Bilirubin (0.2-1.3) mg/dL Total Protein (6.3-8.2) g/dL Albumin (3.5-5.0) g/dL Microbiology - Last 24 Hours (Table) 02/19/24 11:35 Gram Stain - Final Sputum Sputum Culture - Final Enterobacter cloacae Complex
[2024-02-21] MEDS: AMIODARONE 450 MG in DEXTROSE 5% IN WATER 250 ML IV SCH (14:45)
[2024-02-21 16:19] LABS: Glucose,Whole Blood 164 mg/dL (70-110)
[2024-02-21 21:16] LABS: Glucose,Whole Blood 255 mg/dL (70-110)
[2024-02-22 06:00] LABS: Anisocytosis Slight; Basophils % (A) 0 %; Eosinophils # (A) 0.2 k/uL (0-0.7); Eosinophils % (A) 3 %; Hypochromasia Marked; Lymphocytes # (A) 0.9 k/uL (1.0-4.8); Lymphocytes % (A) 18 %; MCH 29.5 pg (25.0-35.0); MCV 95.3 fL (80.0-100.0); Macrocytosis Slight; Mean Platelet Volume 8.7; Monocytes # (A) 0.3 k/uL (0-1.0); Monocytes % (A) 5 %; Neutrophils # (A) 3.5 k/uL (1.3-7.7); Neutrophils % (A) 71 %; Platelet Count 169 k/uL (150-450); Poikilocytosis Moderate; RDW 19.2 % (11.5-15.5)
[2024-02-22 06:01] LABS: Glucose,Whole Blood 164 mg/dL (70-110)
[2024-02-22 06:07] LABS: HGB 6.8 gm/dL (13.0-17.5)
[2024-02-22 06:24] LABS: ALT 24 U/L (4-49); AST 65 U/L (17-59); African American GFR (CKD) 50 (>60 ml/min/1.73 sqM); Albumin 2.9 g/dL (3.5-5.0); Alkaline Phosphatase 91 U/L (38-126); Anion Gap 7 mmol/L; Blood Urea Nitrogen 36 mg/dL (9-20); Carbon Dioxide 24 mmol/L (22-30); Chloride 107 mmol/L (98-107); Glucose 137 mg/dL (74-99); Non-African American GFR(CKD) 43 (>60 ml/min/1.73 sqM); Potassium 3.8 mmol/L (3.5-5.1); Sodium 138 mmol/L (137-145); Total Bilirubin 1.4 mg/dL (0.2-1.3); Total Protein 4.9 g/dL (6.3-8.2)
[2024-02-22 06:35] LABS: Glucose,Whole Blood 182 mg/dL (70-110)
[2024-02-22] MEDS: INSULIN DETEMIR (LEVEMIR) 100 UNIT/ML SYR SQ SCH (06:38)
--- NOTE | 2024-02-22 06:39 | XR ---
EXAMINATION TYPE: XR chest 2V DATE OF EXAM: 02/22/2024 COMPARISON: 02/21/2024 HISTORY: Postop CABG TECHNIQUE: Frontal and lateral views of the chest are obtained. FINDINGS: Postoperative changes of recent CABG surgery. Persistent small left pleural effusion. Right lung is clear. There is no pneumothorax. The pulmonary vasculature appears stable and unremarkable. The osseous structures are intact. IMPRESSION: Postop CABG changes essentially unchanged compared to previous.
--- NOTE | 2024-02-22 07:37 | P.PN ---
Subjective Progress Note Date: 02/22/24 Principal diagnosis: Severe mitral valve regurgitation, acute on chronic heart failure with reduced ejection fraction, coronary artery disease with previous NSTEMI, and paroxysmal atrial fibrillation. Previous medical history of hypertension, anemia without any evidence of acute GI bleed status post upper and lower endoscopy, diabetes mellitus type 2, chronic kidney disease stage III-IV, previous tobacco dependence, mild obstructive lung disease, obstructive sleep apnea with home cpap use, obesity, prostate cancer status post 45 radiation treatments more than 5 years ago, frequent diarrhea POD #7 Coronary artery bypass grafting x 3 with left internal mammary artery to the left anterior descending coronary artery, sequential saphenous vein graft to first and second obtuse marginal coronary arteries, endovascular vein harvest left leg, mitral valve repair with 28 mm annular flex band, percutaneous placement of intra-aortic balloon pump via right common femoral artery, modified Mayer-Maze with complete left-sided lesion set using radiofrequency and cryoablation both epicardial and intracardiac, and ligation of the left atrial appendage with 2 layer suture closure. Postoperative acute blood loss anemia, expected given cardiopulmonary bypass, hemodilution and preoperative history of anemia Symptomatic bradycardia/asystole with brief CPR POD #2 placement of Micra permanent pacemaker by Dr. Estrella The patient was seen and examined this morning sitting up in recliner in the intensive care unit in no acute distress eating breakfast. Currently in sinus rhythm with bundle branch block, hemodynamically stable, remains on room air with oxygen saturation in the mid 90s and able to achieve 1250 mL on his incentive spirometry. He is in good spirits and denies any pain. He does still have a productive cough, sputum culture was positive for Enterobacter cloacae, WBC remains normal and he remains afebrile, IV Zosyn was started 02/20/24. He has been ambulating in the hallway with nursing staff/PT/OT. Chest x-ray, labs reviewed. Hemoglobin 6.8 this morning has remained in the low sevens last 5 days, he does remain on iron/vitamin C and his Aranesp was increased yesterday by nephrology. No other new concerns. Objective - Vital Signs Vital signs: Vital Signs Temp 98.4 F 02/22/24 04:00 Pulse 64 02/22/24 06:00 Resp 26 H 02/22/24 06:00 BP 104/58 02/22/24 06:00 Pulse Ox 95 02/22/24 06:00 FiO2 40 02/16/24 10:06 Intake & Output 02/21/24 02/22/24 02/22/24 18:59 06:59 18:59 Intake Total 1450 400 Output Total 775 1225 Balance 675 -825 Weight 94.8 kg Intake: IV 200 200 Piperacillin-Tazobactam 3 200 200 .375 gm In Sodium Chloride 0.9% 100 ml @ 25 mls/hr IVPB Q8H [facility] Rx#: [id number] Oral 1250 200 Output: Urine 685 1225 Post Void Residual 90 Other: Voiding Method Urinal Urinal # Bowel Movements 1 ABP, PAP, CO, CI - Last Documented Arterial Blood Pressure 100/40 Pulmonary Artery Pressure 33/10 Cardiac Output 3.6 Cardiac Index 1.8 - Exam CONSTITUTIONAL: Appears comfortable, cooperative, no acute distress RESPIRATORY: Lungs sounds diminished in the bases bilaterally, scattered rhonchi present. Respirations even, nonlabored. Currently on room air with oxygen saturation 96%. Able to achieve 1250 mL on incentive spirometry. Strong productive cough. CARDIOVASCULAR: S1, S2 present. Regular rate and rhythm, sinus rhythm with bundle branch block on telemetry. Sternum stable. Palpable peripheral pulses bilaterally. No edema present. No calf pain or tenderness noted. Heart hugger in place with patient demonstrating appropriate use. Antiembolism stockings, SCDs present. GASTROINTESTINAL: Abdomen soft, nontender, nondistended. Active bowel sounds present 4 quadrants. Tolerating diet. Positive bowel movement 02/20 GENITOURINARY: Continues to void clear, yellow urine. Output 925 mL overnight, 1910 mL in the last 24 hours INTEGUMENTARY: Skin is warm and dry. Anterior chest incision well approximated. Left lower extremity EVH site well approximated without redness or drainage. Bilateral groins soft, nontender NEUROLOGIC: Cranial nerves II through XII intact MUSKULOSKELETAL: Able to move all extremities, strength equal bilaterally, gait normal PSYCHIATRIC: Alert and oriented to person place and time, appropriate affect, intact judgment and insight INVASIVE LINES AND TUBES: A/V epicardial pacemaker wires present, grounded - Allied health notes Allied health notes reviewed: nursing - Labs CBC & Chem 7: 02/22/24 05:46 02/22/24 05:46 Labs: Abnormal Lab Results - Last 24 Hours (Table) 02/21/24 02/21/24 02/21/24 Range/Units 06:44 11:24 16:18 RBC 2.37 L (4.30-5.90) m/uL Hgb 7.0 L (13.0-17.5) gm/dL Hct 22.5 L (39.0-53.0) % RDW 18.4 H (11.5-15.5) % Lymphocytes # (1.0-4.8) k/uL BUN (9-20) mg/dL Creatinine (0.66-1.25) mg/dL Glucose (74-99) mg/dL POC Glucose (mg/dL) 244 H 164 H (70-110) mg/dL Calcium (8.4-10.2) mg/dL Total Bilirubin (0.2-1.3) mg/dL AST (17-59) U/L Total Protein (6.3-8.2) g/dL Albumin (3.5-5.0) g/dL 02/21/24 02/22/24 02/22/24 Range/Units 21:15 05:46 05:46 RBC 2.30 L (4.30-5.90) m/uL Hgb 6.8 L* (13.0-17.5) gm/dL Hct 22.0 L (39.0-53.0) % RDW 19.2 H (11.5-15.5) % Lymphocytes # 0.9 L (1.0-4.8) k/uL BUN 36 H (9-20) mg/dL Creatinine 1.51 H (0.66-1.25) mg/dL Glucose 137 H (74-99) mg/dL POC Glucose (mg/dL) 255 H (70-110) mg/dL Calcium 8.0 L (8.4-10.2) mg/dL Total Bilirubin 1.4 H (0.2-1.3) mg/dL AST 65 H (17-59) U/L Total Protein 4.9 L (6.3-8.2) g/dL Albumin 2.9 L (3.5-5.0) g/dL 02/22/24 02/22/24 Range/Units 05:59 06:34 RBC (4.30-5.90) m/uL Hgb (13.0-17.5) gm/dL Hct (39.0-53.0) % RDW (11.5-15.5) % Lymphocytes # (1.0-4.8) k/uL BUN (9-20) mg/dL Creatinine (0.66-1.25) mg/dL Glucose (74-99) mg/dL POC Glucose (mg/dL) 164 H 182 H (70-110) mg/dL Calcium (8.4-10.2) mg/dL Total Bilirubin (0.2-1.3) mg/dL AST (17-59) U/L Total Protein (6.3-8.2) g/dL Albumin (3.5-5.0) g/dL Microbiology - Last 24 Hours (Table) 02/19/24 11:35 Gram Stain - Final Sputum Sputum Culture - Final Enterobacter cloacae Complex - Imaging and Cardiology Chest x-ray: report reviewed, image reviewed Assessment and Plan Assessment: Severe mitral valve regurgitation, status post mitral valve repair Acute on chronic heart failure with reduced ejection fraction, EF 25-30%, status post intra-aortic balloon pump Coronary artery disease with previous NSTEMI, status post three-vessel CABG Paroxysmal atrial fibrillation, status post modified mayer maze and ligation of the left atrial appendage Postoperative acute blood loss anemia, expected given cardiopulmonary bypass, hemodilution and preoperative history of anemia Symptomatic bradycardia/asystole with brief CPR, status post placement of Micra permanent pacemaker by Dr. Estrella Transaminitis, resolved Medical debility History of hypertension Anemia without any evidence of acute GI bleed status post upper and lower endoscopy Diabetes mellitus type 2, preoperative hemoglobin A1c 9.3% Chronic kidney disease stage III-IV, preoperative creatinine 2.24 Previous tobacco dependence Mild obstructive lung disease, preoperative FEV1 63% of predicted Obstructive sleep apnea with home cpap use Obesity Prostate cancer status post 45 radiation treatments more than 5 years ago Frequent diarrhea Plan: Continue to maximize medical therapy with aspirin, statin, Plavix, beta-charlette Encourage incentive spirometry use 10 times every hour while awake. Bronchodilators per pulmonology. Continue Mucinex, Mucomyst nebulizer and Symbicort Will monitor daily labs and chest x-rays. Electrolyte replacement per protocol. Continue Lasix, potassium supplementation (increased today). Will transfuse 1 unit prbcs today Increase activity, ambulate as tolerated. PT/OT/cardiac rehab following. Patient walks with a walker at home Pain control per current medication regimen Avoid nephrotoxic agents Continue home dose of Nephrocaps Insulin management per internal medicine Continue to record strict accurate intake and output Daily weights Shower daily Ground epicardial pacemaker wires, will discontinue prior to discharge Continue antibiotics Encourage oral nutrition, continue with supplements Will place transfer orders for 3 S. cardiac stepdown unit, may transfer when bed available Anticipate discharge to inpatient rehab in the next 24 to 48 hours More recommendations to follow based on patient's clinical course
[2024-02-22] MEDS: POTASSIUM BICARBONATE/CIT AC 20 MEQ TABLET.EFF PO SCH (08:35)
--- NOTE | 2024-02-22 09:45 | P.PN ---
Subjective HISTORY OF PRESENTING ILLNESS Patient is an 78-year-old male with a past medical history of A-fib anticoagulated with Eliquis, hypertension, diabetes mellitus type 2, prostate cancer. He is postop day 3 of coronary artery bypass grafting x 3 with POSADA to LAD, sequential saphenous vein graft to first and second obtuse marginal coronary arteries, endovascular vein harvest, mitral valve repair with 28 mm annular flex band, percutaneous placement of intra-aortic balloon pump via right common femoral artery, modified Vazquez-Maze with complete left-sided lesion set using RF and cryoablation both epi and intracardiac, and ligation of the left atrial appendage with 2 layer suture closure. Balloon pump removed. 02/20 Patient seen and examined. Patient went for Micra pacemaker implantation yesterday with adequate sensing and pacing parameters. He currently is ventricular paced. He did have significant difficulty laying flat and additional Lasix 20 mg IV was given. He is still rhonchorous and coughing up sputum. No fevers or chills. He was placed on antibiotics. He denies any chest pain or pressure however is short of breath. Limited 2-D echo was performed which showed EF 40-45% with no pericardial effusion 02/21 patient seen and examined. Patient states he is overall feeling mildly improved. Denies any chest pain or pressure other than the incision. Shortness breath mildly improved. As some appetite. No hematochezia or melena. Hemoglobin down to 6.8 and therefore receiving 1 unit of packed red blood cells. Creatinine improved to 1.5. PHYSICAL EXAMINATION Vital signs reviewed. CONSTITUTIONAL: No apparent distress. HEENT: Head is normocephalic. Pupils are equal, round. Sclerae anicteric. Mucous membranes of the mouth are moist. No carotid bruit. CHEST EXAMINATION: Decreased breath sounds bilaterally with rhonchi diffusely HEART EXAMINATION: Regular rate and rhythm. S1, S2 heard. +2/6 systolic murmur, no gallops or rub. ABDOMEN: Soft, nontender. Positive bowel sounds. EXTREMITIES: 2+ peripheral pulses, no lower extremity edema and no calf tenderness. NEUROLOGIC EXAMINATION: Patient is awake, alert and oriented x3. ASSESSMENT 1. Severe mitral valve regurgitation, status post mitral valve repair with 28 m m annular flex band. 2. Coronary artery disease status post coronary artery bypass grafting x 3 with left internal mammary artery to the left anterior sending coronary artery. 3. Persistent paroxysmal atrial fibrillation status post modified Vazquez-Maze with complete left-sided lesion set using radiofrequency and cryoablation both epicardial and intracardiac, and ligation of the left atrial appendage with 2 layer suture closure. 4. Acute on chronic congestive heart failure with reduced ejection fraction; EF 25 to 30%, status post percutaneous placement of intra-aortic balloon pump via right common femoral artery, and subsequent removal of intra-aortic balloon pump on 02/16/2024. 5. History of hypertension. 6. Symptomatic bradycardia, with brief CPR, s/p Micra PPM 02/19 7. Chronic kidney disease 8. Diabetes mellitus type 2. 9. Prostate cancer status post radiation treatment several years ago. 10. History remote history of nicotine dependence quit smoking 45 years ago. 11. Post op anemia 12. Acute on chronic respiratory failure Plan: Patient is status post Micra pacemaker implantation. Functioning normally. Echo shows mild improvement in ejection fraction 40-45% with no significant pericardial effusion. his respiratory status appears better and appears to be slowly improving with diuresis. Creatinine appears stable, improved and continue diuresis for now. Reintroduce heart failure regimen is able however blood pressure is borderline.patient to receive 1 unit of packed red blood cells. Monitor hemoglobin closely with no significant bleeding noted however if stable likely transition to Eliquis and Plavix. 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 Continue rhythm control with amiodarone. Objective - Vital Signs Vital signs: Vital Signs Temp 98.7 F 02/22/24 08:00 Pulse 87 02/22/24 09:25 Resp 26 H 02/22/24 08:00 BP 111/64 02/22/24 08:00 Pulse Ox 96 02/22/24 09:11 FiO2 40 02/16/24 10:06 Intake & Output 02/21/24 02/22/24 02/22/24 18:59 06:59 18:59 Intake Total 1450 400 0 Output Total 775 1225 Balance 675 -825 0 Weight 94.8 kg Intake: IV 200 200 0 .9NS 0 Piperacillin-Tazobactam 3 200 200 .375 gm In Sodium Chloride 0.9% 100 ml @ 25 mls/hr IVPB Q8H [facility] Rx#: [id number] Oral 1250 200 Blood Product 0 Unit 0 Output: Urine 685 1225 Post Void Residual 90 Other: Voiding Method Urinal Urinal # Bowel Movements 1 ABP, PAP, CO, CI - Last Documented Arterial Blood Pressure 100/40 Pulmonary Artery Pressure 33/10 Cardiac Output 3.6 Cardiac Index 1.8 - Labs CBC & Chem 7: 02/22/24 05:46 02/22/24 05:46 Labs: Abnormal Lab Results - Last 24 Hours (Table) 02/20/24 02/21/24 02/21/24 Range/Units 05:53 11:24 16:18 RBC (4.30-5.90) m/uL Hgb (13.0-17.5) gm/dL Hct (39.0-53.0) % RDW (11.5-15.5) % Lymphocytes # (1.0-4.8) k/uL BUN (9-20) mg/dL Creatinine (0.66-1.25) mg/dL Glucose (74-99) mg/dL POC Glucose (mg/dL) 244 H 164 H (70-110) mg/dL Calcium (8.4-10.2) mg/dL Total Bilirubin (0.2-1.3) mg/dL AST (17-59) U/L Total Protein (6.3-8.2) g/dL Albumin (3.5-5.0) g/dL Crossmatch See Detail 02/21/24 02/22/24 02/22/24 Range/Units 21:15 05:46 05:46 RBC 2.30 L (4.30-5.90) m/uL Hgb 6.8 L* (13.0-17.5) gm/dL Hct 22.0 L (39.0-53.0) % RDW 19.2 H (11.5-15.5) % Lymphocytes # 0.9 L (1.0-4.8) k/uL BUN 36 H (9-20) mg/dL Creatinine 1.51 H (0.66-1.25) mg/dL Glucose 137 H (74-99) mg/dL POC Glucose (mg/dL) 255 H (70-110) mg/dL Calcium 8.0 L (8.4-10.2) mg/dL Total Bilirubin 1.4 H (0.2-1.3) mg/dL AST 65 H (17-59) U/L Total Protein 4.9 L (6.3-8.2) g/dL Albumin 2.9 L (3.5-5.0) g/dL Crossmatch 02/22/24 02/22/24 Range/Units 05:59 06:34 RBC (4.30-5.90) m/uL Hgb (13.0-17.5) gm/dL Hct (39.0-53.0) % RDW (11.5-15.5) % Lymphocytes # (1.0-4.8) k/uL BUN (9-20) mg/dL Creatinine (0.66-1.25) mg/dL Glucose (74-99) mg/dL POC Glucose (mg/dL) 164 H 182 H (70-110) mg/dL Calcium (8.4-10.2) mg/dL Total Bilirubin (0.2-1.3) mg/dL AST (17-59) U/L Total Protein (6.3-8.2) g/dL Albumin (3.5-5.0) g/dL Crossmatch Microbiology - Last 24 Hours (Table) 02/19/24 11:35 Gram Stain - Final Sputum Sputum Culture - Final Enterobacter cloacae Complex
[2024-02-22] MEDS: AMIODARONE 200 MG TAB PO SCH (09:55)
--- NOTE | 2024-02-22 09:55 | P.PN ---
Subjective Progress Note Date: 02/22/24 Patient is a-year-old white male with past medical history significant for prostate cancer, diabetes mellitus, hypertension, angina, atrial fibrillation normally anticoagulated on Eliquis. Of note, patient had a recent hospitalization 12/24/2023 where he did have an extensive cardiac workup. He was found to have multivessel coronary artery disease and severe mitral regurgitation. Cardiac cath done on 12/28/2023 demonstrates 80% mid LAD stenosis, 90% mid OM2 disease, and moderate diffuse disease in the PDA. Cardiothoracic team was asked to evaluate this patient up for potential open heart surgery. Echocardiogram done the same admission showed a left ventricular ejection fraction estimated at 25 to 30%, as well as, moderate to severe mitral valve regurgitation. Patient underwent open heart surgery yesterday 02/15/2024 including coronary artery bypass grafting x 3 with POSADA to LAD, sequential saphenous vein graft to first and second obtuse marginal coronary arteries, mitral valve repair with 28 mm annular flex band, modified Vazquez-Maze with completed left sided lesion set using RF and cryoablation, ligation of left atrial appendage, and percutaneous placement of intra-aortic balloon pump. Patient was transferred to the intensive care unit postoperatively in critical condition. Or exit time documented at 1430. He did have a 2 L EBL. Status post 4 units PRBC, 2 FFP, 2 platelets, 1.5 L albumin, and 1200 mL Cell Saver. He remains intubated to mechanical ventilator. Postoperative chest x-ray shows mild pulmonary congestion and cardiomegaly, no pneumothorax. Endotracheal tube 2.6 cm above the clark. NG tube courses below the diaphragm. Moraga-Julius catheter with tip projecting over the spine, mediastinal and left thoracotomy tubes in place. Postoperative ABG PaO2 204, pCO2 40, pH 7.36. Current ventilator settings including assist-control, respiratory rate 14, tidal volume 500, FiO2 50%, PEEP of 5. Peak pressure 22, no significant airway secretions. Patient is lightly sedated on propofol which is currently infusing at 50 mcg/kg/min. He does awaken to verbal stimuli, follows all commands, moves all 4 extremities equally. Reportedly has not been extubated at this point, due to increased vasopressor requirements. He is on a one-to-one balloon pump with augmented pressure of 87 mean pressure 65. CI 2.4/CO 4.8. Pulmonary artery pressure 47/22. CVP 14. Milrinone infusing at 0.2 mcg/kg/min. Norepinephrine infusing at 0.04 mcg/kg/min. Normal saline also infusing at 50 mL/h. Insulin per protocol. He does have an epicardial pacemaker wires, currently DDI settings at a rate of 80 bpm. Patient does have 2 mediastinal chest tubes hooked to an atrium with 470 mL of serosanguineous output at this point in time. Left pleural chest tube has a total of 180 mL of serosanguineous output. These are both to negative 20 cm H2O suction. No obvious air leak. Urinary catheter is in place, draining adequate urine output in the order of 30 to 40 mL/h. Most recent CBC: WBC count 5.9, hemoglobin 8, hematocrit 24.8, platelets 127. Coagulation profile including PT 13.6, INR 1.3, APTT 28.6, fibrinogen 215. CMP: Sodium 141, potassium 3.9, chloride 111, serum bicarb 23, BUN 33, creatinine 1.56, glucose 149. Ionized calcium 5. AST 194, ALT 95, ALP 56. Plan is to pursue extubation later this morning. The patient is seen today February 17, 2024 in follow-up in the intensive care unit. Postoperative day #2. He is currently sitting up in chair at the [facility]. Awake and alert in no acute distress. Chest x-ray continues to show some atelectasis and small effusions bilaterally. He is a good encouraged regarding the increased use of the incentive spirometer. Cardiac output 6.1. Cardiac index 3.1. He is on normal saline at 30 mL/h. Primacor was discontinued this morning. He remains on insulin drip at 6 units/h. Mediastinal and left chest tubes remain in place. White count 10.0. Hemoglobin 7.3. Platelets 116. Sodium 140. Potassium 3.9. Bicarb 22. BUN 26. Creatinine 1.68. Glucose 123. He remains on DuoNeb inhalations, Symbicort, Mucinex. Heparin for DVT prophylaxis. The patient is seen today February 18, 2024 in follow-up in the intensive care unit. Postoperative day #3. He is awake and alert in no acute distress. Maintaining good O2 saturations in the mid 90s on room air. He is afebrile. Hemodynamically stable. Sitting up in a chair at the bedside. He has been on several walks yesterday and earlier today. He is doing well. Working well with the incentive spirometer. No worsening shortness of breath, cough or congestion. This x-ray continues to show mild pulmonary edema. Mediastinal and left chest tubes in place. Cordis in place. He has normal saline at 30 mL/h. White count 8.4. Hemoglobin 7.3. Platelets 132. Sodium 135. Potassium 4.3. Bicarb 18. BUN 33. Creatinine 1.78. Glucose 136. AST 110. ALT 44. He remains on DuoNeb inhalations. Heparin for DVT prophylaxis. He remains on Lasix 20 mg IV every 8 hours. He is currently in a +1.5 L balance. The patient is seen today February 19, 2024 in follow-up in the intensive care unit. Postoperative day #4. He is currently sitting up in a chair. Awake and alert in no acute distress. Maintaining O2 saturations in the 90s on room air. No IV fluids. His chest x-ray is showing improvement in the pulmonary congestion. He is doing better with the incentive spirometer currently pulling 1250 mL. He remains on IV diuretics. In a positive balance still. He is continued on bronchodilators. Heparin for DVT prophylaxis. White count 5.7. Hemoglobin 7.0. Platelets 132. Sodium 135. Potassium 3.7. Bicarb 18. BUN 46. Creatinine 2.17. Glucose 114. The patient is seen today February 20, 2024 in follow-up in the intensive care unit. Postoperative day #5. He is currently resting comfortably in bed. Awake and alert in no acute distress. He did have a significant event yesterday while up to the shower went unresponsive and required 1 minute of CPR and resumption of temporary pacing and recovered. Plan is for permanent pacemaker implantation today. Chest x-ray shows worsening mild bibasilar infiltrates. He is working with the incentive spirometer. He is maintaining O2 saturations in the 90s on room air. He is status post 4 units of packed red blood cells, 2 units of fresh frozen plasma and 2 units of platelets this admission. White count 5.4. Hemoglobin 7.8. Platelets 163. Sodium 135. Potassium 4.2. Bicarb 22. BUN 44. Creatinine 1.81. Glucose 168. He is continued on DuoNeb inhalations, Symbicort, IV diuretics. Heparin for DVT prophylaxis. He is currently in a - 1.1 L balance. The patient is seen today February 21, 2024 in follow-up in the intensive care unit. Postoperative day #6. He is currently sitting up at the bedside. Awake and alert in no acute distress. He did undergo permanent pacemaker implantation yesterday. He is still having issues with atrial fibrillation with rapid ventricular response and is receiving amiodarone bolus and subsequent amiodarone infusion. His hemoglobin is 7.0. He is pale. White count 6.0. Platelets 208. Sodium 138. Potassium 3.7. Bicarb 25. BUN 37. Creatinine 1.56. Glucose 153. O2 saturations in the mid 90s on room air. He is been afebrile. Chest x-ray shows a small right pleural effusion. Improved left costophrenic angle infiltrate likely atelectasis. He continues to work well with his incentive spirometer. Follow-up echocardiogram revealed mildly impaired left ventricular systolic function with ejection fraction of 40 to 45%. He remains on DuoNeb and elations, Symbicort. Remains on IV diuretics. Heparin for DVT prophylaxis. A ntibiotics in the form of Zosyn. Sputum culture was positive for Enterobacter cloacae. The patient is seen today February 22, 2024 in follow-up in the intensive care unit. Postoperative day #7. He is sitting up in a chair. Awake and alert in no acute distress. He is maintaining O2 saturations in the 90s on room air. He is afebrile. Hemodynamically stable. Chest x-ray shows persistent small left pleural effusion. Right lung is clear. No pneumothorax. His hemoglobin is 6.8 today he will be receiving 1/5 unit of packed red blood cells in total. 2 units of fresh frozen plasma. 2 units of platelets. Count 5.0. Platelets 169. Sodium 138. Potassium 3.8. Bicarb 24. BUN 36. Creatinine 1.51. Glucose 137. He continues to work well with the incentive spirometer. He is continued on DuoNeb inhalations, Symbicort. Remains on IV diuretics. Heparin for DVT prophylaxis. Antibiotics in the form of Zosyn. Sputum culture was positive for Enterobacter cloacae complex. He is currently in a -150 mL balance. Objective - Vital Signs Vital signs: Vital Signs Temp 98.7 F 02/22/24 08:00 Pulse 87 02/22/24 09:25 Resp 26 H 02/22/24 08:00 BP 111/64 02/22/24 08:00 Pulse Ox 96 02/22/24 09:11 FiO2 40 02/16/24 10:06 Intake & Output 02/21/24 02/22/24 02/22/24 18:59 06:59 18:59 Intake Total 1450 400 0 Output Total 775 1225 Balance 675 -825 0 Weight 94.8 kg Intake: IV 200 200 0 .9NS 0 Piperacillin-Tazobactam 3 200 200 .375 gm In Sodium Chloride 0.9% 100 ml @ 25 mls/hr IVPB Q8H [facility] Rx#: [id number] Oral 1250 200 Blood Product 0 Unit 0 Output: Urine 685 1225 Post Void Residual 90 Other: Voiding Method Urinal Urinal # Bowel Movements 1 ABP, PAP, CO, CI - Last Documented Arterial Blood Pressure 100/40 Pulmonary Artery Pressure 33/10 Cardiac Output 3.6 Cardiac Index 1.8 - Exam GENERAL EXAM: Awake, pale 78-year-old male, on room air, up in a chair, in no acute distress. HEAD: Normocephalic and atraumatic EYES: Normal reaction of pupils, equal size. NOSE: Clear with pink turbinates. THROAT: No erythema or exudates. NECK: No masses, no JVD. CHEST: Midstern incision dressed with postoperative dressing clean, dry, intact. Pacemaker site dressing clean and dry. LUNGS: Equal air entry with few scattered rhonchi. CVS: S1 and S2 normal with no audible murmur, irregular rhythm. ABDOMEN: No hepatosplenomegaly, active bowel sounds, no guarding or rigidity. SPINE: No scoliosis or deformity SKIN: No rashes CENTRAL NERVOUS SYSTEM: No focal deficits, tone is normal in all 4 extremities. EXTREMITIES: Distal pulses intact. Legs with sequential compression devices. - Labs CBC & Chem 7: 02/22/24 05:46 02/22/24 05:46 Labs: Abnormal Lab Results - Last 24 Hours (Table) 02/20/24 02/21/24 02/21/24 Range/Units 05:53 11:24 16:18 RBC (4.30-5.90) m/uL Hgb (13.0-17.5) gm/dL Hct (39.0-53.0) % RDW (11.5-15.5) % Lymphocytes # (1.0-4.8) k/uL BUN (9-20) mg/dL Creatinine (0.66-1.25) mg/dL Glucose (74-99) mg/dL POC Glucose (mg/dL) 244 H 164 H (70-110) mg/dL Calcium (8.4-10.2) mg/dL Total Bilirubin (0.2-1.3) mg/dL AST (17-59) U/L Total Protein (6.3-8.2) g/dL Albumin (3.5-5.0) g/dL Crossmatch See Detail 02/21/24 02/22/24 02/22/24 Range/Units 21:15 05:46 05:46 RBC 2.30 L (4.30-5.90) m/uL Hgb 6.8 L* (13.0-17.5) gm/dL Hct 22.0 L (39.0-53.0) % RDW 19.2 H (11.5-15.5) % Lymphocytes # 0.9 L (1.0-4.8) k/uL BUN 36 H (9-20) mg/dL Creatinine 1.51 H (0.66-1.25) mg/dL Glucose 137 H (74-99) mg/dL POC Glucose (mg/dL) 255 H (70-110) mg/dL Calcium 8.0 L (8.4-10.2) mg/dL Total Bilirubin 1.4 H (0.2-1.3) mg/dL AST 65 H (17-59) U/L Total Protein 4.9 L (6.3-8.2) g/dL Albumin 2.9 L (3.5-5.0) g/dL Crossmatch 02/22/24 02/22/24 Range/Units 05:59 06:34 RBC (4.30-5.90) m/uL Hgb (13.0-17.5) gm/dL Hct (39.0-53.0) % RDW (11.5-15.5) % Lymphocytes # (1.0-4.8) k/uL BUN (9-20) mg/dL Creatinine (0.66-1.25) mg/dL Glucose (74-99) mg/dL POC Glucose (mg/dL) 164 H 182 H (70-110) mg/dL Calcium (8.4-10.2) mg/dL Total Bilirubin (0.2-1.3) mg/dL AST (17-59) U/L Total Protein (6.3-8.2) g/dL Albumin (3.5-5.0) g/dL Crossmatch Microbiology - Last 24 Hours (Table) 02/19/24 11:35 Gram Stain - Final Sputum Sputum Culture - Final Enterobacter cloacae Complex Assessment and Plan Assessment: Postoperative day #7 following coronary artery bypass grafting x 3 with POSADA to LAD, sequential saphenous vein graft to first and second obtuse marginal coronary arteries, mitral valve repair with 28 mm annular flex band, modified Vazquez-Maze with completed left sided lesion set using RF and cryoablation, ligation of left atrial appendage, and percutaneous placement of intra-aortic balloon pump. Balloon pump removed Brief cardiac arrest on 02/19/2024 requiring 1 minute of CPR and resumption of pacing. Permanent pacemaker placed 02/20/2024 Routine mechanical ventilator management and subsequent extubation. Recovered and on room air Atrial fibrillation with a rapid ventricular response, receiving amiodarone Acute blood loss anemia, expected outcome of surgery, status post 5 units PRBC, 2 FFP, 2 platelets, 1.5 L albumin, and 1200 mL Cell Saver. Current hemoglobin 6.8 Acute kidney injury, secondary to hypotension and ATN improving Diabetes mellitus type 2 History of atrial fibrillation, normally anticoagulated on Eliquis, status post synchronized cardioversion on 12/31/2023 History of hypertension Former tobacco smoker History of prostate cancer with previous radiation Plan: The patient was seen and evaluated Chest x-ray, labs and medications reviewed To receive a 5th unit of packed red blood cells today Currently stable and on room air Continue the current treatment plan Increase use of the incentive spirometer Increase his activity as tolerated We will continue to follow I have personally seen and examined the patient, performed the documentation and the assessment and plan as written. Number of minutes spent on the visit: 10.
--- NOTE | 2024-02-22 11:32 | P.PN ---
Subjective patient is seen for follow-up for chronic kidney disease. Status post coronary artery bypass surgery. Status post pacemaker placement for symptomatic bradycardia. No significant complaints. serum creatinine at 1.5 mg/dL. Lasix remains at 20 mg IV every 8 hours. Receiving packed RBCs for hemoglobin 6.8 today Objective - Vital Signs Vital signs: Vital Signs Temp 98.2 F 02/22/24 10:07 Pulse 72 02/22/24 10:07 Resp 18 02/22/24 10:07 BP 108/56 02/22/24 10:07 Pulse Ox 94 L 02/22/24 10:07 FiO2 40 02/16/24 10:06 Intake & Output 02/21/24 02/22/24 02/22/24 18:59 06:59 18:59 Intake Total 1450 400 0 Output Total 775 1225 300 Balance 675 -825 -300 Weight 94.8 kg Intake: IV 200 200 0 .9NS 0 Piperacillin-Tazobactam 3 200 200 .375 gm In Sodium Chloride 0.9% 100 ml @ 25 mls/hr IVPB Q8H [facility] Rx#: [id number] Oral 1250 200 Blood Product 0 Unit 0 Output: Urine 685 1225 300 Post Void Residual 90 Other: Voiding Method Urinal Urinal # Bowel Movements 1 ABP, PAP, CO, CI - Last Documented Arterial Blood Pressure 100/40 Pulmonary Artery Pressure 33/10 Cardiac Output 3.6 Cardiac Index 1.8 - Exam awake, comfortable, no acute distress Alert oriented 3 Examination of the heart S1 and S2 Examination of the lungs bilateral breath sounds are heard Abdomen is soft nontender Examination of lower extremities shows no significant edema - Labs CBC & Chem 7: 02/22/24 05:46 02/22/24 05:46 Labs: Abnormal Lab Results - Last 24 Hours (Table) 02/20/24 02/21/24 02/21/24 Range/Units 05:53 16:18 21:15 RBC (4.30-5.90) m/uL Hgb (13.0-17.5) gm/dL Hct (39.0-53.0) % RDW (11.5-15.5) % Lymphocytes # (1.0-4.8) k/uL BUN (9-20) mg/dL Creatinine (0.66-1.25) mg/dL Glucose (74-99) mg/dL POC Glucose (mg/dL) 164 H 255 H (70-110) mg/dL Calcium (8.4-10.2) mg/dL Total Bilirubin (0.2-1.3) mg/dL AST (17-59) U/L Total Protein (6.3-8.2) g/dL Albumin (3.5-5.0) g/dL Crossmatch See Detail 02/22/24 02/22/24 02/22/24 Range/Units 05:46 05:46 05:59 RBC 2.30 L (4.30-5.90) m/uL Hgb 6.8 L* (13.0-17.5) gm/dL Hct 22.0 L (39.0-53.0) % RDW 19.2 H (11.5-15.5) % Lymphocytes # 0.9 L (1.0-4.8) k/uL BUN 36 H (9-20) mg/dL Creatinine 1.51 H (0.66-1.25) mg/dL Glucose 137 H (74-99) mg/dL POC Glucose (mg/dL) 164 H (70-110) mg/dL Calcium 8.0 L (8.4-10.2) mg/dL Total Bilirubin 1.4 H (0.2-1.3) mg/dL AST 65 H (17-59) U/L Total Protein 4.9 L (6.3-8.2) g/dL Albumin 2.9 L (3.5-5.0) g/dL Crossmatch 02/22/24 Range/Units 06:34 RBC (4.30-5.90) m/uL Hgb (13.0-17.5) gm/dL Hct (39.0-53.0) % RDW (11.5-15.5) % Lymphocytes # (1.0-4.8) k/uL BUN (9-20) mg/dL Creatinine (0.66-1.25) mg/dL Glucose (74-99) mg/dL POC Glucose (mg/dL) 182 H (70-110) mg/dL Calcium (8.4-10.2) mg/dL Total Bilirubin (0.2-1.3) mg/dL AST (17-59) U/L Total Protein (6.3-8.2) g/dL Albumin (3.5-5.0) g/dL Crossmatch Microbiology - Last 24 Hours (Table) 02/19/24 11:35 Gram Stain - Final Sputum Sputum Culture - Final Enterobacter cloacae Complex Assessment and Plan Assessment: 1. Chronic kidney disease stage IIIb secondary to diabetic kidney disease with baseline creatinine 1.5-2. 2. Coronary artery disease status post CABG x 3 and mitral valve repair February 15, 2024. 3. Diabetes mellitus. 4. Anemia of chronic kidney disease with component of acute blood loss post CABG. on Aranesp. 5. Metabolic acidosis secondary to chronic kidney disease and IV fluids. On oral bicarb. 6. Chronic systolic CHF. Ejection fraction 25 to 30% 7. Mild volume overload. On IV Lasix. 8. Acute kidney injury secondary to vasomotor nephropathy from diuresis. improved. 9. Symptomatic bradycardia status post pacemaker placement on 02/20/2024 Plan: continue current dose of IV Lasix increased Aranesp
[2024-02-22 11:52] LABS: Glucose,Whole Blood 271 mg/dL (70-110)
--- NOTE | 2024-02-22 16:02 | P.PN ---
Subjective Interval History: patient is a 78-year-old gentleman with past medical history significant for prostate cancer, diabetes mellitus, hypertension, angina, atrial fibrillation normally anticoagulated on Eliquis, recent cardiac workup showing multivessel coronary disease and severe MR who presented to the hospital for open heart surgery. Patient underwent coronary artery bypass grafting x 3 with POSADA to LAD, sequential saphenous vein graft to first and second obtuse marginal coronary arteries, mitral valve repair with 28 mm annular flex band, modified Vazquez-Maze with completed left sided lesion set using RF and cryoablation, ligation of left atrial appendage, and percutaneous placement of intra-aortic balloon pump. Patient was admitted to ICU. Internal medicine team were consulted for medical management. 02/19--- patient was seen and examined today. Patient underwent placement of pacemaker today by EP. Family at bedside. Patient denies any issues overnight. Pain is controlled. Patient currently on Zosyn, respiratory culture growing Enterobacter. ICU following. 02/20-patient was seen and examined today. No issues overnight. Remained afebrile, heart rate 62, respiratory rate 20, blood pressure on the lower side 102/56. Hemoglobin was low 6.4, recheck 7.0, will continue to monitor. Blood sugar elevated, will increase Levemir to 15 units daily. 02/21--patient was seen and examined today. Sitting up in chair, comfortable. Patient denied any issues overnight. Chest x-ray showing persistent small left Lucier. Patient's hemoglobin 6.8, 1 unit of packed RBCs ordered. 2 units of fresh frozen plasma and 2 units of platelet per cardiac surgery. Patient miryam on IV diuretics. AntibioticsZosyn. Sputum culture positive for Enterobacter cloacae. Assessment and plan: CABG x 3 with POSADA to LAD, sequential saphenous vein graft to first and second obtuse marginal coronary arteries, mitral valve repair with 28 mm annular flex band, modified Vazquez-Maze with completed left sided lesion set using RF and cryoablation, ligation of left atrial appendage, and percutaneous placement of intra-aortic balloon pump. Status post pacemaker placement:02/19 Postop vent dependent respiratory failure Multivessel coronary artery disease History of severe mitral valve regurgitation Acute blood loss anemia-- Acute kidney injury PNA: Diabetes mellitus type 2 History of atrial fibrillation History of hypertension Former tobacco smoker History of prostate cancer with previous radiation Monitor vital signs Monitor labs Continue telemetry monitoring Aggressive bronchopulmonary hygiene Continue vent management per ICU Continue vasopressor Continue insulin--Levemir, sliding scale insulin. IV diuresis Antibiotics: Zosyn Platelet, fresh frozen plasma and packed RBCs transfusion. CT surgery following ICU following Labs and medication were reviewed.. Continue same treatment. Continue with symptomatic treatment. Resume home medication. Monitor labs and vitals. DVT and GI prophylaxis. Further recommendations as per clinical course of the patient PHYSICAL EXAMINATION: GENERAL: The patient is A&O x3, NAD HEENT: EOMI, Sclerae anicteric, Moist Mucous membranes Neck: Supple, Non tender, No JVD PULMONARY: Equal breath souds B/L, No wheezing, No crackles. CARDIOVASCULAR: S1, S2 present. No murmurs, rubs, or gallops. ABDOMEN: Soft, nontender, nondistended, normoactive bowel sounds. No guarding or rebound tenderness. MUSCULOSKELETAL: No edema, No cyanosis. No clubbing. Normal ROM. Intact peripheral pulses. EXTREMITIES: No cyanosis, clubbing, or pedal edema. NEUROLOGICAL: CN 2-12 grossly intact. No FND Skin: No Rash REVIEW OF SYSTEMS: CONSTITUTIONAL: No fever or chills. CARDIOVASCULAR: No chest pain, palpitations or syncope. PULMONARY: No shortness of breath, no cough, sore throat. GASTROINTESTINAL: No nausea, vomiting, diarrhea, abdominal pain. : No Dysuria, urgency, frequency. Extremities: No edema. NEUROLOGICAL: No headaches, no weakness, or numbness Dictation was produced using [employer] dictation software. please excuse any grammatical, word or spelling errors. Objective - Vital Signs Vital signs: Vital Signs Temp 97.7 F 02/22/24 12:18 Pulse 66 02/22/24 15:32 Resp 15 02/22/24 15:00 BP 112/55 02/22/24 13:00 Pulse Ox 98 02/22/24 12:18 FiO2 40 02/16/24 10:06 Intake & Output 02/21/24 02/22/24 02/22/24 18:59 06:59 18:59 Intake Total 1450 400 410 Output Total 775 1225 700 Balance 675 825 -290 Weight 94.8 kg Intake: IV 200 200 100 .9NS 0 Piperacillin-Tazobactam 3 200 200 100 .375 gm In Sodium Chloride 0.9% 100 ml @ 25 mls/hr IVPB Q8H [facility] Rx#: [id number] Oral 1250 200 Blood Product 310 Rc As-1 Unit 310 [id number] Output: Urine 685 1225 700 Post Void Residual 90 Other: Voiding Method Urinal Urinal Urinal # Bowel Movements 1 ABP, PAP, CO, CI - Last Documented Arterial Blood Pressure 100/40 Pulmonary Artery Pressure 33/10 Cardiac Output 3.6 Cardiac Index 1.8 - Labs CBC & Chem 7: 02/22/24 05:46 02/22/24 05:46 Labs: Abnormal Lab Results - Last 24 Hours (Table) 02/20/24 02/21/24 02/21/24 Range/Units 05:53 16:18 21:15 RBC (4.30-5.90) m/uL Hgb (13.0-17.5) gm/dL Hct (39.0-53.0) % RDW (11.5-15.5) % Lymphocytes # (1.0-4.8) k/uL BUN (9-20) mg/dL Creatinine (0.66-1.25) mg/dL Glucose (74-99) mg/dL POC Glucose (mg/dL) 164 H 255 H (70-110) mg/dL Calcium (8.4-10.2) mg/dL Total Bilirubin (0.2-1.3) mg/dL AST (17-59) U/L Total Protein (6.3-8.2) g/dL Albumin (3.5-5.0) g/dL Crossmatch See Detail 02/22/24 02/22/24 02/22/24 Range/Units 05:46 05:46 05:59 RBC 2.30 L (4.30-5.90) m/uL Hgb 6.8 L* (13.0-17.5) gm/dL Hct 22.0 L (39.0-53.0) % RDW 19.2 H (11.5-15.5) % Lymphocytes # 0.9 L (1.0-4.8) k/uL BUN 36 H (9-20) mg/dL Creatinine 1.51 H (0.66-1.25) mg/dL Glucose 137 H (74-99) mg/dL POC Glucose (mg/dL) 164 H (70-110) mg/dL Calcium 8.0 L (8.4-10.2) mg/dL Total Bilirubin 1.4 H (0.2-1.3) mg/dL AST 65 H (17-59) U/L Total Protein 4.9 L (6.3-8.2) g/dL Albumin 2.9 L (3.5-5.0) g/dL Crossmatch 02/22/24 02/22/24 Range/Units 06:34 11:51 RBC (4.30-5.90) m/uL Hgb (13.0-17.5) gm/dL Hct (39.0-53.0) % RDW (11.5-15.5) % Lymphocytes # (1.0-4.8) k/uL BUN (9-20) mg/dL Creatinine (0.66-1.25) mg/dL Glucose (74-99) mg/dL POC Glucose (mg/dL) 182 H 271 H (70-110) mg/dL Calcium (8.4-10.2) mg/dL Total Bilirubin (0.2-1.3) mg/dL AST (17-59) U/L Total Protein (6.3-8.2) g/dL Albumin (3.5-5.0) g/dL Crossmatch
[2024-02-22 17:04] LABS: Glucose,Whole Blood 187 mg/dL (70-110)
[2024-02-22 21:07] LABS: Glucose,Whole Blood 244 mg/dL (70-110)
[2024-02-23 05:39] LABS: Anisocytosis Slight; HCT 25.4 % (39.0-53.0); HGB 7.8 gm/dL (13.0-17.5); Hypochromasia Marked; MCH 28.9 pg (25.0-35.0); MCHC 30.9 g/dL (31.0-37.0); MCV 93.6 fL (80.0-100.0); Macrocytosis Slight; Mean Platelet Volume 8.7; Platelet Count 186 k/uL (150-450); Poikilocytosis Slight; RBC 2.71 m/uL (4.30-5.90); RDW 19.2 % (11.5-15.5); WBC 5.1 k/uL (3.8-10.6)
[2024-02-23 05:49] LABS: African American GFR (CKD) 53 (>60 ml/min/1.73 sqM); Anion Gap 6 mmol/L; Blood Urea Nitrogen 32 mg/dL (9-20); Carbon Dioxide 27 mmol/L (22-30); Chloride 104 mmol/L (98-107); Glucose 146 mg/dL (74-99); Magnesium 1.8 mg/dL (1.6-2.3); Non-African American GFR(CKD) 46 (>60 ml/min/1.73 sqM); Potassium 4.3 mmol/L (3.5-5.1); Sodium 137 mmol/L (137-145)
[2024-02-23 07:09] LABS: Glucose,Whole Blood 184 mg/dL (70-110)
--- NOTE | 2024-02-23 07:39 | XR ---
EXAMINATION TYPE: XR chest 2V DATE OF EXAM: 02/23/2024 COMPARISON: 02/22/2024 TECHNIQUE: PA and lateral views submitted. HISTORY: Postcardiac surgery FINDINGS: Median sternotomy changes with cardiomegaly. There is a small bilateral pleural effusion and basilar consolidation. No overt failure or pneumothorax. Degenerative changes spine arthropathy of the should ers. IMPRESSION: 1. Bilateral lower lobe infiltrate and small pleural effusion.
[2024-02-23] MEDS: MAGNESIUM SULFATE-D5W PMX 1 GM in DEXTROSE/WATER 1 100ML.BAG IVPB ONE (08:30)
[2024-02-23] MEDS: MAGNESIUM OXIDE 400 MG TAB PO SCH (08:40)
--- NOTE | 2024-02-23 08:42 | P.PN ---
Subjective Progress Note Date: 02/23/24 Principal diagnosis: Severe mitral valve regurgitation, acute on chronic heart failure with reduced ejection fraction, coronary artery disease with previous NSTEMI, and paroxysmal atrial fibrillation. Previous medical history of hypertension, anemia without any evidence of acute GI bleed status post upper and lower endoscopy, diabetes mellitus type 2, chronic kidney disease stage III-IV, previous tobacco dependence, mild obstructive lung disease, obstructive sleep apnea with home cpap use, obesity, prostate cancer status post 45 radiation treatments more than 5 years ago, frequent diarrhea POD #8 Coronary artery bypass grafting x 3 with left internal mammary artery to the left anterior descending coronary artery, sequential saphenous vein graft to first and second obtuse marginal coronary arteries, endovascular vein harvest left leg, mitral valve repair with 28 mm annular flex band, percutaneous placement of intra-aortic balloon pump via right common femoral artery, modified Mayer-Maze with complete left-sided lesion set using radiofrequency and cryoablation both epicardial and intracardiac, and ligation of the left atrial appendage with 2 layer suture closure. Postoperative acute blood loss anemia, expected given cardiopulmonary bypass, hemodilution and preoperative history of anemia Symptomatic bradycardia/asystole with brief CPR POD #3 placement of Micra permanent pacemaker by Dr. Estrella The patient was seen and examined this morning sitting up in recliner in the intensive care unit in no acute distress eating breakfast. Currently in sinus rhythm with bundle branch block, hemodynamically stable, remains on room air with oxygen saturation in the mid 90s and able to achieve 1250 mL on his incentive spirometry. He is in good spirits and denies any pain. His cough is less productive, sputum culture was positive for Enterobacter cloacae, WBC remains normal and he remains afebrile, IV Zosyn continues. He has been amb ulating in the hallway with nursing staff/PT/OT, able to walk around ICU with several breaks. Chest x-ray, labs reviewed. Received 1 unit PRBCs yesterday for hgb 6.8, his hemaglobin is 7.8 this am. Was started on oral amiodarone yesterday in addition to Lopressor per cardiology recommendations for A-fib prophylaxis. Transfer orders were placed yesterday for 3 S. cardiac stepdown unit, no bed availability, remains in ICU is overflow. No other new concerns. Objective - Vital Signs Vital signs: Vital Signs Temp 97.9 F 02/23/24 08:00 Pulse 66 02/23/24 08:00 Resp 26 H 02/23/24 08:00 BP 117/76 02/23/24 08:00 Pulse Ox 98 02/23/24 08:00 FiO2 40 02/16/24 10:06 Intake & Output 02/22/24 02/23/24 02/23/24 18:59 06:59 18:59 Intake Total 410 600 Output Total 1300 900 100 Balance -890 -300 -100 Intake: IV 100 200 .9NS 0 Piperacillin-Tazobactam 3 100 200 .375 gm In Sodium Chloride 0.9% 100 ml @ 25 mls/hr IVPB Q8H [facility] Rx#: [id number] Oral 400 Blood Product 310 Rc As-1 Unit 310 [id number] Output: Urine 1300 900 100 Other: Voiding Method Urinal Urinal ABP, PAP, CO, CI - Last Documented Arterial Blood Pressure 100/40 Pulmonary Artery Pressure 33/10 Cardiac Output 3.6 Cardiac Index 1.8 - Exam CONSTITUTIONAL: Appears comfortable, cooperative, no acute distress RESPIRATORY: Lungs sounds diminished in the bases bilaterally. Respirations even, nonlabored. Currently on room air with oxygen saturation 95%. Able to achieve 1250 mL on incentive spirometry. Strong cough. CARDIOVASCULAR: S1, S2 present. Regular rate and rhythm, sinus rhythm with bundle branch block on telemetry. Sternum stable. Palpable peripheral pulses bilaterally. No edema present. No calf pain or tenderness noted. Heart hugger in place with patient demonstrating appropriate use. Antiembolism stockings, SCDs present. GASTROINTESTINAL: Abdomen soft, nontender, nondistended. Active bowel sounds present 4 quadrants. Tolerating diet. Positive bowel movement 02/20 GENITOURINARY: Continues to void clear, yellow urine. Output 2200 mL in the last 24 hours INTEGUMENTARY: Skin is warm and dry. Anterior chest incision well approxim ated. Left lower extremity EVH site well approximated without redness or drainage. Bilateral groins soft, nontender, suture in place to the right groin NEUROLOGIC: Cranial nerves II through XII intact MUSKULOSKELETAL: Able to move all extremities, strength equal bilaterally, gait normal PSYCHIATRIC: Alert and oriented to person place and time, appropriate affect, intact judgment and insight INVASIVE LINES AND TUBES: A/V epicardial pacemaker wires present, grounded - Allied health notes Allied health notes reviewed: nursing - Labs CBC & Chem 7: 02/23/24 05:22 02/23/24 05:22 Labs: Abnormal Lab Results - Last 24 Hours (Table) 02/20/24 02/22/24 02/22/24 Range/Units 05:53 11:51 17:02 RBC (4.30-5.90) m/uL Hgb (13.0-17.5) gm/dL Hct (39.0-53.0) % MCHC (31.0-37.0) g/dL RDW (11.5-15.5) % BUN (9-20) mg/dL Creatinine (0.66-1.25) mg/dL Glucose (74-99) mg/dL POC Glucose (mg/dL) 271 H 187 H (70-110) mg/dL Calcium (8.4-10.2) mg/dL Crossmatch See Detail 02/22/24 02/23/24 02/23/24 Range/Units 21:06 05:22 05:22 RBC 2.71 L (4.30-5.90) m/uL Hgb 7.8 L (13.0-17.5) gm/dL Hct 25.4 L (39.0-53.0) % MCHC 30.9 L (31.0-37.0) g/dL RDW 19.2 H (11.5-15.5) % BUN 32 H (9-20) mg/dL Creatinine 1.43 H (0.66-1.25) mg/dL Glucose 146 H (74-99) mg/dL POC Glucose (mg/dL) 244 H (70-110) mg/dL Calcium 8.0 L (8.4-10.2) mg/dL Crossmatch 02/23/24 Range/Units 07:08 RBC (4.30-5.90) m/uL Hgb (13.0-17.5) gm/dL Hct (39.0-53.0) % MCHC (31.0-37.0) g/dL RDW (11.5-15.5) % BUN (9-20) mg/dL Creatinine (0.66-1.25) mg/dL Glucose (74-99) mg/dL POC Glucose (mg/dL) 184 H (70-110) mg/dL Calcium (8.4-10.2) mg/dL Crossmatch - Imaging and Cardiology Chest x-ray: report reviewed, image reviewed Assessment and Plan Assessment: Severe mitral valve regurgitation, status post mitral valve repair Acute on chronic heart failure with reduced ejection fraction, EF 25-30%, status post intra-aortic balloon pump Coronary artery disease with previous NSTEMI, status post three-vessel CABG Paroxysmal atrial fibrillation, status post modified mayer maze and ligation of the left atrial appendage Postoperative acute blood loss anemia, expected given cardiopulmonary bypass, hemodilution and preoperative history of anemia Symptomatic bradycardia/asystole with brief CPR, status post placement of Micra permanent pacemaker by Dr. Estrella Transaminitis, resolved Medical debility History of hypertension Anemia without any evidence of acute GI bleed status post upper and lower endoscopy Diabetes mellitus type 2, preoperative hemoglobin A1c 9.3% Chronic kidney disease stage III-IV, preoperative creatinine 2.24 Previous tobacco dependence Mild obstructive lung disease, preoperative FEV1 63% of predicted Obstructive sleep apnea with home cpap use Obesity Prostate cancer status post 45 radiation treatments more than 5 years ago Frequent diarrhea Plan: Continue to maximize medical therapy with aspirin, statin, Plavix, beta-charlette Oral amiodarone added for A-fib prophylaxis Encourage incentive spirometry use 10 times every hour while awake. Bronchodilators per pulmonology Will monitor daily labs and chest x-rays. Electrolyte replacement per protocol. Continue Lasix, potassium supplementation. No further blood transfusion Increase activity, ambulate as tolerated. PT/OT/cardiac rehab following. Patient walks with a walker at home Pain control per current medication regimen Avoid nephrotoxic agents Continue home dose of Nephrocaps Insulin management per internal medicine Continue to record strict accurate intake and output Daily weights Shower daily Will discontinue epicardial pacemaker wires, suture in right groin Continue antibiotics, will switch to oral upon discharge Encourage oral nutrition, continue with supplements Transfer orders placed yesterday for 3 S. cardiac stepdown unit, may transfer when bed available Anticipate discharge to inpatient rehab in the next 24 hours More recommendations to follow based on patient's clinical course
--- NOTE | 2024-02-23 09:32 | P.PN ---
Subjective Progress Note Date: 02/23/24 The patient is an 78-year-old male with multiple comorbid conditions. The patient is currently admitted after undergoing coronary artery bypass x 3 as well as a mitral valve repair. Postoperatively the patient had intermittent heart block and therefore underwent pacemaker insertion. Patient interviewed and examined resting comfortably in the recliner chair. He still reports having some weakness of his upper extremities and difficulty ambulating independently. The plan is to go to inpatient rehab. He denies any current chest pain or difficulty breathing. GENERAL: Well-appearing, well-nourished and in no acute distress. NECK: Supple without JVD or thyromegaly. LUNGS: Breath sounds diminished to auscultation bilaterally. Respiration equal and unlabored. No wheezes, rales or rhonchi. HEART: Regular rate and rhythm without murmurs, rubs or gallops. S1 and S2 heard. EXTREMITIES: Normal range of motion, no edema. No clubbing or cyanosis. Peripheral pulses intact and strong. Bruising noted in the bilateral groins TELEMETRY: Sinus rhythm with intermittent pacing IMPRESSION: Severe mitral valve regurgitation, status post mitral valve repair with 28 mm annular flex band. Coronary artery disease status post coronary artery bypass grafting x 3 with left internal mammary artery to the left anterior sending coronary artery. Persistent paroxysmal atrial fibrillation status post modified Vazquez-Maze with complete left-sided lesion set using radiofrequency and cryoablation both epicardial and intracardiac, and ligation of the left atrial appendage with 2 layer suture closure. Acute on chronic congestive heart failure with reduced ejection fraction; EF 25 to 30% Intermittent heart block, status post MICRA pacemaker Chronic kidney disease Diabetes mellitus type 2 PLAN: Continue supportive treatment Groin sutures to be removed prior to discharge Agree with transfer to rehab facility I am dictating on behalf of Dr Pineda Estrella's history/physical and assessment/plan. Objective - Vital Signs Vital signs: Vital Signs Temp 97.9 F 02/23/24 08:00 Pulse 67 02/23/24 09:06 Resp 26 H 02/23/24 08:00 BP 117/76 02/23/24 08:00 Pulse Ox 98 02/23/24 08:50 FiO2 40 02/16/24 10:06 Intake & Output 02/22/24 02/23/24 02/23/24 18:59 06:59 18:59 Intake Total 410 600 Output Total 1300 900 325 Balance -890 -300 -325 Intake: IV 100 200 .9NS 0 Piperacillin-Tazobactam 3 100 200 .375 gm In Sodium Chloride 0.9% 100 ml @ 25 mls/hr IVPB Q8H [facility] Rx#: [id number] Oral 400 Blood Product 310 Rc As-1 Unit 310 [id number] Output: Urine 1300 900 325 Other: Voiding Method Urinal Urinal ABP, PAP, CO, CI - Last Documented Arterial Blood Pressure 100/40 Pulmonary Artery Pressure 33/10 Cardiac Output 3.6 Cardiac Index 1.8 - Labs CBC & Chem 7: 02/23/24 05:22 02/23/24 05:22 Labs: Abnormal Lab Results - Last 24 Hours (Table) 02/20/24 02/22/24 02/22/24 Range/Units 05:53 11:51 17:02 RBC (4.30-5.90) m/uL Hgb (13.0-17.5) gm/dL Hct (39.0-53.0) % MCHC (31.0-37.0) g/dL RDW (11.5-15.5) % BUN (9-20) mg/dL Creatinine (0.66-1.25) mg/dL Glucose (74-99) mg/dL POC Glucose (mg/dL) 271 H 187 H (70-110) mg/dL Calcium (8.4-10.2) mg/dL Crossmatch See Detail 02/22/24 02/23/24 02/23/24 Range/Units 21:06 05:22 05:22 RBC 2.71 L (4.30-5.90) m/uL Hgb 7.8 L (13.0-17.5) gm/dL Hct 25.4 L (39.0-53.0) % MCHC 30.9 L (31.0-37.0) g/dL RDW 19.2 H (11.5-15.5) % BUN 32 H (9-20) mg/dL Creatinine 1.43 H (0.66-1.25) mg/dL Glucose 146 H (74-99) mg/dL POC Glucose (mg/dL) 244 H (70-110) mg/dL Calcium 8.0 L (8.4-10.2) mg/dL Crossmatch 02/23/24 Range/Units 07:08 RBC (4.30-5.90) m/uL Hgb (13.0-17.5) gm/dL Hct (39.0-53.0) % MCHC (31.0-37.0) g/dL RDW (11.5-15.5) % BUN (9-20) mg/dL Creatinine (0.66-1.25) mg/dL Glucose (74-99) mg/dL POC Glucose (mg/dL) 184 H (70-110) mg/dL Calcium (8.4-10.2) mg/dL Crossmatch
--- NOTE | 2024-02-23 10:06 | P.CONS ---
History of Present Illness - Reason for Consult Consult date: 02/23/24 - History of Present Illness Mr Warren is an 78 y/o right handed male who lives with his in a SS home with 3 CORY with unilateral handrail. Prior to admission patient was independent with mobility and ADLs using a two wheeled walker. His drives. He has multiple family and friends that live local and are able to assist as well as his is available 12/01. Patient with a past medical history significant for prostate cancer, diabetes mellitus, hypertension, angina, atrial fibrillation normally anticoagulated on Eliquis. Patient recent had an extensive cardiac workup, found to have multi vessel coronary artery disease and severe mitral regurgitation. Cardiac cath done on 12/28/2023 demonstrates 80% mid LAD stenosis, 90% mid OM2 disease, and moderate diffuse disease in the PDA. Cardiothoracic team was asked to evaluate this patient for potential open heart surgery. Echocardiogram done the same admission showed a left ventricular ejection fraction estimated at 25 to 30%, as well as, moderate to severe mitral valve regurgitation. Patient underwent open heart surgery on 02/15/2024 including coronary artery bypass grafting x 3 with POSADA to LAD, sequential saphenous vein graft to first and second obtuse marginal coronary arteries, mitral valve repair with 28 mm annular flex band, modified Vazquez-Maze with completed left sided lesion set using RF and cryoablation, ligation of left atrial appendage, and percutaneous placement of intra-aortic balloon pump. Patient was transferred to the intensive care unit postoperatively in critical condition. He did have a 2 L EBL Status post 4 units PRBC, 2 FFP, 2 platelets, 1.5 L albumin, and 1200 mL Cell Saver. Postoperative chest x-ray shows mild pulmonary congestion and cardiomegaly, no pneumothorax. Endotracheal tube 2.6 cm above the clark. NG tube courses below the diaphragm. Nickerson-Julius catheter with tip projecting over the spine, mediastinal and left thoracotomy tubes in place. His extubation was delayed due to increased vasopressor requirements, eventually was able to be extubated. On 02/17 Chest x- ray continues to show mild pulmonary edema. PM&R consulted for rehab recommendations. Patient was seen by PT, able to t ransfer and ambulate min to mod assist, 25 ft before needing rest break. OT evaluations pending. 02/18/24. Patient states that overall he's feeling tired, does have some wheezing and a little short of breath. He denies chest or incisional pain, denies abdominal pain. He reports that he has not had bowel movement in a couple of days. He has a Jones catheter for urination. He was weaned off of the oxygen this morning. He feels weak all over. Both patient and would like him to have rehab before returning home. 02/23/24: Patient continuing to progress medically. Reports cough with phlegm. He did have blood transfusion yesterday, no signs of active bleeding. He is still interested and motivated to transfer to [facility] for safe dc home. Denies c/p unless he coughs, no sob, no abdominal pain. Review of Systems negative unless per HPI 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, using zoll monitoring manager History of Any Multi-Drug Resistant Organisms: None Reported Past Surgical History: Appendectomy, Cardiac Ablation, Orthopedic Surgery, Orthopedic Surgery Additional Past Surgical History / Comment(s): Right hip replacement, bilateral cataract Past Anesthesia/Blood Transfusion Reactions: No Reported Reaction Smoking Status: Former smoker - Past Family History Father Family Medical History: Coronary Artery Disease (CAD) Additional Family Medical History / Comment(s): from an aneurysm Mother Family Medical History: Cancer Medications and Allergies Home Medications Medication Instructions Recorded Confirmed Type Timolol 0.5% Ophth Soln [Timoptic 1 drop BOTH EYES BID 12/24/23 02/15/24 History 0.5% Ophth Soln] Atorvastatin [Lipitor] 40 mg PO DAILY #30 tab 01/01/24 02/15/24 Rx Dapagliflozin Propanediol [Farxiga] 10 mg PO DAILY #30 tab 01/01/24 02/15/24 Rx Isosorbide Mononitrate ER [Imdur] 30 mg PO DAILY #30 tab 01/01/24 02/15/24 Rx Amiodarone [Cordarone] 200 mg PO DAILY 01/22/24 02/15/24 History Apixaban [Eliquis] 2.5 mg PO BID 01/24/24 02/15/24 History Folic Acid-Vit B Complex-Vit C 1 cap PO DAILY 01/24/24 02/15/24 History [Nephrocaps] Furosemide [Lasix] 40 mg PO DAILY 02/15/24 02/15/24 History Menthol-Zinc Oxide Oint 1 applic TOPICAL TID 02/15/24 02/15/24 History [Calmoseptine Ointment] Metoprolol Tartrate [Lopressor] 125 mg PO BID 02/15/24 02/15/24 History Pantoprazole [Protonix] 40 mg PO BID 02/15/24 02/15/24 History glipiZIDE XL [Glucotrol XL] 10 mg PO BID 02/15/24 02/15/24 History Allergies Allergy/AdvReac Type Severity Reaction Status Date / Time Penicillins Allergy Unknown Verified 02/15/24 07:14 Childhood Physical Exam Vitals: Vital Signs Temp Pulse Resp BP Pulse Ox 02/23/24 09:06 67 02/23/24 09:00 67 24 02/23/24 08:50 68 98 02/23/24 08:00 97.9 F 66 29 H 117/76 98 02/23/24 07:00 70 22 02/23/24 06:00 67 28 H 100/72 02/23/24 05:00 65 20 02/23/24 04:00 98.9 F 66 22 02/23/24 03:00 67 25 H 02/23/24 02:00 67 21 131/62 02/23/24 01:00 67 23 02/23/24 00:08 66 22 02/23/24 00:00 98.1 F 66 16 110/84 02/22/24 23:00 67 21 02/22/24 22:00 67 19 117/62 02/22/24 21:00 68 18 02/22/24 20:00 66 24 02/22/24 19:48 69 02/22/24 19:40 67 02/22/24 19:00 66 16 112/55 02/22/24 18:00 66 29 H 02/22/24 17:00 68 28 H 103/56 02/22/24 16:00 64 29 H 146/134 95 02/22/24 15:32 66 02/22/24 15:24 67 02/22/24 15:00 64 15 02/22/24 14:00 62 24 09/02/24 13:00 64 25 H 112/55 02/22/24 12:18 97.7 F 68 19 124/89 98 02/22/24 12:00 67 26 H 103/61 02/22/24 11:00 31 H 108/55 97 02/22/24 10:07 98.2 F 72 18 108/56 94 L Intake and Output 02/22/24 02/23/24 02/23/24 22:59 06:59 14:59 Intake Total 500 100 Output Total 800 600 325 Balance -300 -500 -325 Intake: IV 100 100 Piperacillin-Tazobactam 3 100 100 .375 gm In Sodium Chloride 0.9% 100 ml @ 25 mls/hr IVPB Q8H [facility] Rx#: [id number] Oral 400 Output: Urine 800 600 325 Other: Voiding Method Urinal Urinal Urinal GENERAL: The patient is alert and oriented x3, not in any acute distress, but appears fatigued, Well developed, well nourished, male HEENT: No scleral icterus. No conjunctival pallor. Normocephalic, atraumatic. CARDIOVASCULAR: Heart hugger on, Sternotomy surgical incision, bilateral LE compression stockings on and SCDs, Right greater than left hand and arm edema, non pitting. External pacers still in pace PULMONARY: Some wheezing but respirations are even and unlabored. ABDOMEN: Soft, non tender MUSCULOSKELETAL: Functional ROM of bilateral upper and lower extremities with generalized weakness NEUROLOGICAL: Speech is cleart and fluent, Sensation intact to light touch bilateral upper and lower extremities MMT: Bilateral SABD, EF,EE at least 4/5, FABD and HG 5/5, Bilateral HF and KE 4/5, DF 5/5 SKIN: no lesions to visible skin, right groin sutures still in place Results CBC & Chem 7: 02/23/24 05:22 02/23/24 05:22 Labs: Abnormal Lab Results - Last 24 Hours (Table) 02/20/24 02/22/24 02/22/24 Range/Units 05:53 11:51 17:02 RBC (4.30-5.90) m/uL Hgb (13.0-17.5) gm/dL Hct (39.0-53.0) % MCHC (31.0-37.0) g/dL RDW (11.5-15.5) % BUN (9-20) mg/dL Creatinine (0.66-1.25) mg/dL Glucose (74-99) mg/dL POC Glucose (mg/dL) 271 H 187 H (70-110) mg/dL Calcium (8.4-10.2) mg/dL Crossmatch See Detail 02/22/24 02/23/24 02/23/24 Range/Units 21:06 05:22 05:22 RBC 2.71 L (4.30-5.90) m/uL Hgb 7.8 L (13.0-17.5) gm/dL Hct 25.4 L (39.0-53.0) % MCHC 30.9 L (31.0-37.0) g/dL RDW 19.2 H (11.5-15.5) % BUN 32 H (9-20) mg/dL Creatinine 1.43 H (0.66-1.25) mg/dL Glucose 146 H (74-99) mg/dL POC Glucose (mg/dL) 244 H (70-110) mg/dL Calcium 8.0 L (8.4-10.2) mg/dL Crossmatch 02/23/24 Range/Units 07:08 RBC (4.30-5.90) m/uL Hgb (13.0-17.5) gm/dL Hct (39.0-53.0) % MCHC (31.0-37.0) g/dL RDW (11.5-15.5) % BUN (9-20) mg/dL Creatinine (0.66-1.25) mg/dL Glucose (74-99) mg/dL POC Glucose (mg/dL) 184 H (70-110) mg/dL Calcium (8.4-10.2) mg/dL Crossmatch Assessment and Plan Assessment: # Cardiac debility seconary to coronary artery bypass grafting x 3 with POSADA to LAD, sequential saphenous vein graft to first and second obtuse marginal coronary arteries, mitral valve repair with 28 mm annular flex band, modified Vazquez-Maze with completed left sided lesion set using RF and cryoablation -sternal/cardiac precautions -PT/OT # ligation of left atrial appendage #Postop vent dependent respiratory failure -extubated and on RA #Multivessel coronary artery disease #History of severe mitral valve regurgitation #Post operative Acute blood loss anemia s/p transfusion -02/22: Hgb 6.8 yesterday (02/21), s/p 1 u prbc yesterday hgb improved to 7.8 today #Acute kidney injury # Comorbities: Diabetes mellitus type 2,History of atrial fibrillation,History of hypertension,Former tobacco smoker,History of prostate cancer with previous radiation # DVT Proph- SCDs, meds per AUG # Pain Management - meds per AUG # Your medical dx and management Dispo: Patient is performing significantly below his baseline level of function after review of PT notes, needs OT evaluations. Patient is highly motivated for recovery and has a supportive and family. Recommending IPR tomorrow after removal of external pacers and groin sutures removed. Patient seen by Dr. Doan via telehealth with active audio and visual components. Exam and interview facilitated by Mickie VILLALPANDO.
--- NOTE | 2024-02-23 11:12 | P.PN ---
Subjective patient is seen for follow-up for chronic kidney disease. Status post coronary artery bypass surgery. Status post pacemaker placement for symptomatic bradycardia. No significant complaints. serum creatinine at 1.4 mg/dL. Lasix remains at 20 mg IV every 8 hours. Objective - Vital Signs Vital signs: Vital Signs Temp 97.9 F 02/23/24 08:00 Pulse 67 02/23/24 09:06 Resp 24 02/23/24 09:00 BP 117/76 02/23/24 08:00 Pulse Ox 98 02/23/24 08:50 FiO2 40 02/16/24 10:06 Intake & Output 02/22/24 02/23/24 02/23/24 18:59 06:59 18:59 Intake Total 410 600 Output Total 1300 900 325 Balance -890 -300 -325 Intake: IV 100 200 .9NS 0 Piperacillin-Tazobactam 3 100 200 .375 gm In Sodium Chloride 0.9% 100 ml @ 25 mls/hr IVPB Q8H [facility] Rx#: [id number] Oral 400 Blood Product 310 Rc As-1 Unit 310 [id number] Output: Urine 1300 900 325 Other: Voiding Method Urinal Urinal Urinal ABP, PAP, CO, CI - Last Documented Arterial Blood Pressure 100/40 Pulmonary Artery Pressure 33/10 Cardiac Output 3.6 Cardiac Index 1.8 - Exam awake, comfortable, no acute distress Alert oriented 3 Examination of the heart S1 and S2 Examination of the lungs bilateral breath sounds are heard Abdomen is soft nontender Examination of lower extremities shows no significant edema - Labs CBC & Chem 7: 02/23/24 05:22 02/23/24 05:22 Labs: Abnormal Lab Results - Last 24 Hours (Table) 02/20/24 02/22/24 02/22/24 Range/Units 05:53 11:51 17:02 RBC (4.30-5.90) m/uL Hgb (13.0-17.5) gm/dL Hct (39.0-53.0) % MCHC (31.0-37.0) g/dL RDW (11.5-15.5) % BUN (9-20) mg/dL Creatinine (0.66-1.25) mg/dL Glucose (74-99) mg/dL POC Glucose (mg/dL) 271 H 187 H (70-110) mg/dL Calcium (8.4-10.2) mg/dL Crossmatch See Detail 02/22/24 02/23/24 02/23/24 Range/Units 21:06 05:22 05:22 RBC 2.71 L (4.30-5.90) m/uL Hgb 7.8 L (13.0-17.5) gm/dL Hct 25.4 L (39.0-53.0) % MCHC 30.9 L (31.0-37.0) g/dL RDW 19.2 H (11.5-15.5) % BUN 32 H (9-20) mg/dL Creatinine 1.43 H (0.66-1.25) mg/dL Glucose 146 H (74-99) mg/dL POC Glucose (mg/dL) 244 H (70-110) mg/dL Calcium 8.0 L (8.4-10.2) mg/dL Crossmatch 02/23/24 Range/Units 07:08 RBC (4.30-5.90) m/uL Hgb (13.0-17.5) gm/dL Hct (39.0-53.0) % MCHC (31.0-37.0) g/dL RDW (11.5-15.5) % BUN (9-20) mg/dL Creatinine (0.66-1.25) mg/dL Glucose (74-99) mg/dL POC Glucose (mg/dL) 184 H (70-110) mg/dL Calcium (8.4-10.2) mg/dL Crossmatch Assessment and Plan Assessment: 1. Chronic kidney disease stage IIIb secondary to diabetic kidney disease with baseline creatinine 1.5-2. 2. Coronary artery disease status post CABG x 3 and mitral valve repair February 15, 2024. 3. Diabetes mellitus. 4. Anemia of chronic kidney disease with component of acute blood loss post CABG. on Aranesp. 5. Metabolic acidosis secondary to chronic kidney disease and IV fluids. On oral bicarb. 6. Chronic systolic CHF. Ejection fraction 25 to 30% 7. Mild volume overload. On IV Lasix. 8. Acute kidney injury secondary to vasomotor nephropathy from diuresis. improved. 9. Symptomatic bradycardia status post pacemaker placement on 02/20/2024 Plan: continue current dose of IV Lasix increased Aranesp Okay to use Bactrim for Enterobacter cloacae on sputum culture
[2024-02-23] MEDS: SULFAMETHOX-TMP 800-160MG 1 EACH TAB PO SCH (11:17)
[2024-02-23 12:10] LABS: Glucose,Whole Blood 183 mg/dL (70-110)
[2024-02-23] MEDS: INSULIN ASPART (NovoLOG) 100 UNIT/ML VIAL SQ SCH (13:12)
--- NOTE | 2024-02-23 13:30 | P.PN ---
Subjective Progress Note Date: 02/23/24 Patient is a-year-old white male with past medical history significant for prostate cancer, diabetes mellitus, hypertension, angina, atrial fibrillation normally anticoagulated on Eliquis. Of note, patient had a recent hospitalization 12/24/2023 where he did have an extensive cardiac workup. He was found to have multivessel coronary artery disease and severe mitral regurgitation. Cardiac cath done on 12/28/2023 demonstrates 80% mid LAD stenosis, 90% mid OM2 disease, and moderate diffuse disease in the PDA. Cardiothoracic team was asked to evaluate this patient up for potential open heart surgery. Echocardiogram done the same admission showed a left ventricular ejection fraction estimated at 25 to 30%, as well as, moderate to severe mitral valve regurgitation. Patient underwent open heart surgery yesterday 02/15/2024 including coronary artery bypass grafting x 3 with POSADA to LAD, sequential saphenous vein graft to first and second obtuse marginal coronary arteries, mitral valve repair with 28 mm annular flex band, modified Vazquez-Maze with completed left sided lesion set using RF and cryoablation, ligation of left atrial appendage, and percutaneous placement of intra-aortic balloon pump. Patient was transferred to the intensive care unit postoperatively in critical condition. Or exit time documented at 1430. He did have a 2 L EBL. Status post 4 units PRBC, 2 FFP, 2 platelets, 1.5 L albumin, and 1200 mL Cell Saver. He remains intubated to mechanical ventilator. Postoperative chest x-ray shows mild pulmonary congestion and cardiomegaly, no pneumothorax. Endotracheal tube 2.6 cm above the clark. NG tube courses below the diaphragm. Hereford-Julius catheter with tip projecting over the spine, mediastinal and left thoracotomy tubes in place. Postoperative ABG PaO2 204, pCO2 40, pH 7.36. Current ventilator settings including assist-control, respiratory rate 14, tidal volume 500, FiO2 50%, PEEP of 5. Peak pressure 22, no significant airway secretions. Patient is lightly sedated on propofol which is currently infusing at 50 mcg/kg/min. He does awaken to verbal stimuli, follows all commands, moves all 4 extremities equally. Reportedly has not been extubated at this point, due to increased vasopressor requirements. He is on a one-to-one balloon pump with augmented pressure of 87 mean pressure 65. CI 2.4/CO 4.8. Pulmonary artery pressure 47/22. CVP 14. Milrinone infusing at 0.2 mcg/kg/min. Norepinephrine infusing at 0.04 mcg/kg/min. Normal saline also infusing at 50 mL/h. Insulin per protocol. He does have an epicardial pacemaker wires, currently DDI settings at a rate of 80 bpm. Patient does have 2 mediastinal chest tubes hooked to an atrium with 470 mL of serosanguineous output at this point in time. Left pleural chest tube has a total of 180 mL of serosanguineous output. These are both to negative 20 cm H2O suction. No obvious air leak. Urinary catheter is in place, draining adequate urine output in the order of 30 to 40 mL/h. Most re cent CBC: WBC count 5.9, hemoglobin 8, hematocrit 24.8, platelets 127. Coagulation profile including PT 13.6, INR 1.3, APTT 28.6, fibrinogen 215. CMP: Sodium 141, potassium 3.9, chloride 111, serum bicarb 23, BUN 33, creatinine 1.56, glucose 149. Ionized calcium 5. AST 194, ALT 95, ALP 56. Plan is to pursue extubation later this morning. The patient is seen today February 17, 2024 in follow-up in the intensive care unit. Postoperative day #2. He is currently sitting up in chair at the beds shweta. Awake and alert in no acute distress. Chest x-ray continues to show some atelectasis and small effusions bilaterally. He is a good encouraged regarding the increased use of the incentive spirometer. Cardiac output 6.1. Cardiac index 3.1. He is on normal saline at 30 mL/h. Primacor was discontinued this morning. He remains on insulin drip at 6 units/h. Mediastinal and left chest tubes remain in place. White count 10.0. Hemoglobin 7.3. Platelets 116. Sodium 140. Potassium 3.9. Bicarb 22. BUN 26. Creatinine 1.68. Glucose 123. He remains on DuoNeb inhalations, Symbicort, Mucinex. Heparin for DVT prophylaxis. The patient is seen today February 18, 2024 in follow-up in the intensive care unit. Postoperative day #3. He is awake and alert in no acute distress. Maintaining good O2 saturations in the mid 90s on room air. He is afebrile. Hemodynamically stable. Sitting up in a chair at the bedside. He has been on several walks yesterday and earlier today. He is doing well. Working well with the incentive spirometer. No worsening shortness of breath, cough or congestion. This x-ray continues to show mild pulmonary edema. Mediastinal and left chest tubes in place. Cordis in place. He has normal saline at 30 mL/h. White count 8.4. Hemoglobin 7.3. Platelets 132. Sodium 135. Potassium 4.3. Bicarb 18. BUN 33. Creatinine 1.78. Glucose 136. AST 110. ALT 44. He remains on DuoNeb inhalations. Heparin for DVT prophylaxis. He remains on Lasix 20 mg IV every 8 hours. He is currently in a +1.5 L balance. The patient is seen today February 19, 2024 in follow-up in the intensive care unit. Postoperative day #4. He is currently sitting up in a chair. Awake and alert in no acute distress. Maintaining O2 saturations in the 90s on room air. No IV fluids. His chest x-ray is showing improvement in the pulmonary congestion. He is doing better with the incentive spirometer currently pulling 1250 mL. He remains on IV diuretics. In a positive balance still. He is continued on bronchodilators. Heparin for DVT prophylaxis. White count 5.7. Hemoglobin 7.0. Platelets 132. Sodium 135. Potassium 3.7. Bicarb 18. BUN 46. Creatinine 2.17. Glucose 114. The patient is seen today February 20, 2024 in follow-up in the intensive care unit. Postoperative day #5. He is currently resting comfortably in bed. Awake and alert in no acute distress. He did have a significant event yesterday while up to the shower went unresponsive and required 1 minute of CPR and resumption of temporary pacing and recovered. Plan is for permanent pacemaker implantation today. Chest x-ray shows worsening mild bibasilar infiltrates. He is working with the incentive spirometer. He is maintaining O2 saturations in the 90s on room air. He is status post 4 units of packed red blood cells, 2 units of fresh frozen plasma and 2 units of platelets this admission. White count 5.4. Hemoglobin 7.8. Platelets 163. Sodium 135. Potassium 4.2. Bicarb 22. BUN 44. Creatinine 1.81. Glucose 168. He is continued on DuoNeb inhalations, Symbicort, IV diuretics. Heparin for DVT prophylaxis. He is currently in a - 1.1 L balance. The patient is seen today February 21, 2024 in follow-up in the intensive care unit. Postoperative day #6. He is currently sitting up at the bedside. Awake and alert in no acute distress. He did undergo permanent pacemaker implantation yesterday. He is still having issues with atrial fibrillation with rapid ventricular response and is receiving amiodarone bolus and subsequent amiodarone infusion. His hemoglobin is 7.0. He is pale. White count 6.0. Platelets 208. Sodium 138. Potassium 3.7. Bicarb 25. BUN 37. Creatinine 1.56. Glucose 153. O2 saturations in the mid 90s on room air. He is been afebrile. Chest x-ray shows a small right pleural effusion. Improved left costophrenic angle infiltrate likely atelectasis. He continues to work well with his incentive spirometer. Follow-up echocardiogram revealed mildly impaired left ventricular systolic function with ejection fraction of 40 to 45%. He remains on DuoNeb and elations, Symbicort. Remains on IV diuretics. Heparin for DVT prophylaxis. Antibiotics in the form of Zosyn. Sputum culture was positive for Enterobacter cloacae. The patient is seen today February 22, 2024 in follow-up in the intensive care unit. Postoperative day #7. He is sitting up in a chair. Awake and alert in no acute distress. He is maintaining O2 saturations in the 90s on room air. He is afebrile. Hemodynamically stable. Chest x-ray shows persistent small left pleural effusion. Right lung is clear. No pneumothorax. His hemoglobin is 6.8 today he will be receiving 1/5 unit of packed red blood cells in total. 2 units of fresh frozen plasma. 2 units of platelets. Count 5.0. Platelets 169. Sodium 138. Potassium 3.8. Bicarb 24. BUN 36. Creatinine 1.51. Glucose 137. He continues to work well with the incentive spirometer. He is continued on DuoNeb inhalations, Symbicort. Remains on IV diuretics. Heparin for DVT prophylaxis. Antibiotics in the form of Zosyn. Sputum culture was positive for Enterobacter cloacae complex. He is currently in a -150 mL balance. On today's evaluation of 02/23/2024, the patient is currently being seen for a follow-up. Patient is doing well and the patient is currently on room air oxygen. Limited cough and congestion. Sternal wound is dry clean and intact. A follow-up chest x-ray was done this morning and the patient is showing some lower lobe pulmonary infiltrates and small bilateral pleural effusions. Antibiotics have been switched to oral Bactrim as the patient had Enterobacter in his sputum. Clearance was obtained by nephrology as the patient had an acute kidney injury and the creatinine continues to improve and currently creatinine is down to 1.4. Will monitor the creatinine and the potassium level as the patient is being given treated with Bactrim. Patient's hemoglobin is at 7.8. The white cell count of 5.1 and a platelet count of 186. The patient is having paroxysmal atrial fibrillation. Current rhythm is sinus. The patient remains on amiodarone 400 mg p.o. twice a day and the patient is also on metoprolol 25 mg twice a day. The patient remains on Plavix. The patient is also on Lasix 20 mg IV every 8 hours with a negative fluid balance of 1.1 L over the past 24 hours. As far as surgery, the patient has undergone mitral valve repair. The patient also underwent three-vessel bypass surgery. The patient is status post modified Vazquez-Maze procedure and the patient's baseline ejection fraction of 25 to 30%. Based on intermittent heart block, the patient was given a Micra pacemaker. He is diabetic. The patient is postop day #8. Objective - Vital Signs Vital signs: Vital Signs Temp 97.9 F 02/23/24 08:00 Pulse 67 02/23/24 09:06 Resp 24 02/23/24 09:00 BP 117/76 02/23/24 08:00 Pulse Ox 98 02/23/24 08:50 FiO2 40 02/16/24 10:06 Intake & Output 02/22/24 02/23/24 02/23/24 18:59 06:59 18:59 Intake Total 410 600 Output Total 1300 900 325 Balance -890 -300 -325 Intake: IV 100 200 .9NS 0 Piperacillin-Tazobactam 3 100 200 .375 gm In Sodium Chloride 0.9% 100 ml @ 25 mls/hr IVPB Q8H [facility] Rx#: [id number] Oral 400 Blood Product 310 Rc As-1 Unit 310 [id number] Output: Urine 1300 900 325 Other: Voiding Method Urinal Urinal Urinal ABP, PAP, CO, CI - Last Documented Arterial Blood Pressure 100/40 Pulmonary Artery Pressure 33/10 Cardiac Output 3.6 Cardiac Index 1.8 - Exam GENERAL EXAM: Awake, pale 78-year-old male, on room air, up in a chair, in no acute distress. HEAD: Normocephalic and atraumatic EYES: Normal reaction of pupils, equal size. NOSE: Clear with pink turbinates. THROAT: No erythema or exudates. NECK: No masses, no JVD. CHEST: Midstern incision dressed with postoperative dressing clean, dry, intact. Pacemaker site dressing clean and dry. LUNGS: Equal air entry with few scattered rhonchi. CVS: S1 and S2 normal with no audible murmur, irregular rhythm. ABDOMEN: No hepatosplenomegaly, active bowel sounds, no guarding or rigidity. SPINE: No scoliosis or deformity SKIN: No rashes CENTRAL NERVOUS SYSTEM: No focal deficits, tone is normal in all 4 extremities. EXTREMITIES: Distal pulses intact. Legs with sequential compression devices. - Labs CBC & Chem 7: 02/23/24 05:22 02/23/24 05:22 Labs: Abnormal Lab Results - Last 24 Hours (Table) 02/20/24 02/22/24 02/22/24 Range/Units 05:53 11:51 17:02 RBC (4.30-5.90) m/uL Hgb (13.0-17.5) gm/dL Hct (39.0-53.0) % MCHC (31.0-37.0) g/dL RDW (11.5-15.5) % BUN (9-20) mg/dL Creatinine (0.66-1.25) mg/dL Glucose (74-99) mg/dL POC Glucose (mg/dL) 271 H 187 H (70-110) mg/dL Calcium (8.4-10.2) mg/dL Crossmatch See Detail 02/22/24 02/23/24 02/23/24 Range/Units 21:06 05:22 05:22 RBC 2.71 L (4.30-5.90) m/uL Hgb 7.8 L (13.0-17.5) gm/dL Hct 25.4 L (39.0-53.0) % MCHC 30.9 L (31.0-37.0) g/dL RDW 19.2 H (11.5-15.5) % BUN 32 H (9-20) mg/dL Creatinine 1.43 H (0.66-1.25) mg/dL Glucose 146 H (74-99) mg/dL POC Glucose (mg/dL) 244 H (70-110) mg/dL Calcium 8.0 L (8.4-10.2) mg/dL Crossmatch 02/23/24 Range/Units 07:08 RBC (4.30-5.90) m/uL Hgb (13.0-17.5) gm/dL Hct (39.0-53.0) % MCHC (31.0-37.0) g/dL RDW (11.5-15.5) % BUN (9-20) mg/dL Creatinine (0.66-1.25) mg/dL Glucose (74-99) mg/dL POC Glucose (mg/dL) 184 H (70-110) mg/dL Calcium (8.4-10.2) mg/dL Crossmatch Assessment and Plan Plan: Postoperative day #8 following coronary artery bypass grafting x 3 with POSADA to LAD, sequential saphenous vein graft to first and second obtuse marginal coronary arteries, mitral valve repair with 28 mm annular flex band, modified Vazquez-Maze with completed left sided lesion set using RF and cryoablation, ligation of left atrial appendage, and percutaneous placement of intra-aortic b alloon pump. Balloon pump removed. The patient is currently hemodynamically stable. Having episodes of paroxysmal atrial fibrillation. The patient is on metoprolol and amiodarone. The patient remains on Plavix. Brief cardiac arrest on 02/19/2024 requiring 1 minute of CPR and resumption of pacing. Permanent pacemaker placed 02/20/2024, and Micra pacemaker inserted on this patient without any complications. Postthoracotomy related to routine mechanical ventilator management and subsequent extubation. Recovered and on room air. The patient has limited infiltration of the lung bases with Enterobacter in the sputum. Atrial fibrillation with a rapid ventricular response, receiving amiodarone Acute blood loss anemia, expected outcome of surgery, status post 5 units PRBC, 2 FFP, 2 platelets, 1.5 L albumin, and 1200 mL Cell Saver. Current hemoglobin currently stable above 7 Acute kidney injury, secondary to hypotension and ATN improving Diabetes mellitus type 2 History of atrial fibrillation, normally anticoagulated on Eliquis, status post synchronized cardioversion on 12/31/2023 History of hypertension Former tobacco smoker History of prostate cancer with previous radiation Plan: The patient will be switched to oral Bactrim to complete a total of 7-day course of antibiotics. Will monitor creatinine and potassium Hemoglobin is stable and the patient received another unit of packed RBC yesterday Continue Plavix Continue metoprolol and amiodarone Currently stable and on room air Continue the current treatment plan Increase use of the incentive spirometer Increase his activity as tolerated We will continue to follow
--- NOTE | 2024-02-23 14:44 | P.PN ---
Subjective Progress Note Date: 02/23/24 Interval History: patient is a 78-year-old gentleman with past medical history significant for prostate cancer, diabetes mellitus, hypertension, angina, atrial fibrillation normally anticoagulated on Eliquis, recent cardiac workup showing multivessel coronary disease and severe MR who presented to the hospital for open heart surgery. Patient underwent coronary artery bypass grafting x 3 with POSADA to LAD , sequential saphenous vein graft to first and second obtuse marginal coronary arteries, mitral valve repair with 28 mm annular flex band, modified Vazquez-Maze with completed left sided lesion set using RF and cryoablation, ligation of left atrial appendage, and percutaneous placement of intra-aortic balloon pump. Patient was admitted to ICU. Internal medicine team were consulted for medical management. 02/19--- patient was seen and examined today. Patient underwent placement of pacemaker today by EP. Family at bedside. Patient denies any issues overnight. Pain is controlled. Patient currently on Zosyn, respiratory culture growing Enterobacter. ICU following. 02/20-patient was seen and examined today. No issues overnight. Remained afebrile, heart rate 62, respiratory rate 20, blood pressure on the lower side 102/56. Hemoglobin was low 6.4, recheck 7.0, will continue to monitor. Blood sugar elevated, will increase Levemir to 15 units daily. 02/21--patient was seen and examined today. Sitting up in chair, comfortable. Patient denied any issues overnight. Chest x-ray showing persistent small left Lucier. Patient's hemoglobin 6.8, 1 unit of packed RBCs ordered. 2 units of fresh frozen plasma and 2 units of platelet per cardiac surgery. Patient miryam on IV diuretics. AntibioticsZosyn. Sputum culture positive for Enterobacter cloacae. 02/22--patient was seen and examined today. Sitting up in chair. Denied any issues overnight. Patient feeling better today. On room air. Complains of mild cough and congestion. Chest x-ray today showed lower lobe pulmonary i nfiltrates and small bilateral pleural effusions. Patient was on Zosyn, switched to Bactrim per pulmonary. Creatinine is down to 1.4 today. Hemoglobin is stable. No leukocytosis. Patient currently on amiodarone for paroxysmal atrial fibrillation and metoprolol. Also receiving IV diuresis with IV Lasix every 8 hours. Assessment and plan: CABG x 3 with POSADA to LAD, sequential saphenous vein graft to first and second obtuse marginal coronary arteries, mitral valve repair with 28 mm annular flex band, modified Vazquez-Maze with completed left sided lesion set using RF and cryoablation, ligation of left atrial appendage, and percutaneous placement of intra-aortic balloon pump. Status post pacemaker placement:02/19 Postop vent dependent respiratory failure Multivessel coronary artery disease History of severe mitral valve regurgitation Acute blood loss anemia-- Acute kidney injury PNA: Diabetes mellitus type 2 History of atrial fibrillation History of hypertension Former tobacco smoker History of prostate cancer with previous radiation Monitor vital signs Monitor labs Continue telemetry monitoring Aggressive bronchopulmonary hygiene Continue vent management per ICU Continue vasopressor Continue insulin--Levemir, sliding scale insulin. IV diuresis--IV Lasix 20 mg every 8 hours. Antibiotics: Zosyn--switch to Bactrim per pulmonary, monitor renal function and potassium. Platelet, fresh frozen plasma and packed RBCs transfusion. CT surgery following ICU following Anticipate subacute rehab. Labs and medication were reviewed.. Continue same treatment. Continue with symptomatic treatment. Resume home medication. Monitor labs and vitals. DVT and GI prophylaxis. Further recommendations as per clinical course of the patient PHYSICAL EXAMINATION: GENERAL: The patient is A&O x3, NAD HEENT: EOMI, Sclerae anicteric, Moist Mucous membranes Neck: Supple, Non tender, No JVD PULMONARY: Equal breath souds B/L, No wheezing, No crackles. CARDIOVASCULAR: S1, S2 present. No murmurs, rubs, or gallops. ABDOMEN: Soft, nontender, nondistended, normoactive bowel sounds. No guarding or rebound tenderness. MUSCULOSKELETAL: No edema, No cyanosis. No clubbing. Normal ROM. Intact per ipheral pulses. EXTREMITIES: No cyanosis, clubbing, or pedal edema. NEUROLOGICAL: CN 2-12 grossly intact. No FND Skin: No Rash REVIEW OF SYSTEMS: CONSTITUTIONAL: No fever or chills. CARDIOVASCULAR: No chest pain, palpitations or syncope. PULMONARY: Complains of cough, congestion. GASTROINTESTINAL: No nausea, vomiting, diarrhea, abdominal pain. : No Dysuria, urgency, frequency. Extremities: No edema. NEUROLOGICAL: No headaches, no weakness, or numbness Dictation was produced using [employer] dictation software. please excuse any grammatical, word or spelling errors. Objective - Vital Signs Vital signs: Vital Signs Temp 97.9 F 02/23/24 08:00 Pulse 65 02/23/24 12:18 Resp 25 H 02/23/24 11:00 BP 103/53 02/23/24 11:00 Pulse Ox 98 02/23/24 08:50 FiO2 40 02/16/24 10:06 Intake & Output 02/22/24 02/23/24 02/23/24 18:59 06:59 18:59 Intake Total 410 600 Output Total 1300 900 625 Balance -890 300 -002 Intake: IV 100 200 .9NS 0 Piperacillin-Tazobactam 3 100 200 .375 gm In Sodium Chloride 0.9% 100 ml @ 25 mls/hr IVPB Q8H [facility] Rx#: [id number] Oral 400 Blood Product 310 Rc As-1 Unit 310 [id number] Output: Urine 1300 900 625 Other: Voiding Method Urinal Urinal Urinal ABP, PAP, CO, CI - Last Documented Arterial Blood Pressure 100/40 Pulmonary Artery Pressure 33/10 Cardiac Output 3.6 Cardiac Index 1.8 - Labs CBC & Chem 7: 02/23/24 05:22 02/23/24 05:22 Labs: Abnormal Lab Results - Last 24 Hours (Table) 02/22/24 02/22/24 02/23/24 Range/Units 17:02 21:06 05:22 RBC 2.71 L (4.30-5.90) m/uL Hgb 7.8 L (13.0-17.5) gm/dL Hct 25.4 L (39.0-53.0) % MCHC 30.9 L (31.0-37.0) g/dL RDW 19.2 H (11.5-15.5) % BUN (9-20) mg/dL Creatinine (0.66-1.25) mg/dL Glucose (74-99) mg/dL POC Glucose (mg/dL) 187 H 244 H (70-110) mg/dL Calcium (8.4-10.2) mg/dL 02/23/24 02/23/24 02/23/24 Range/Units 05:22 07:08 12:09 RBC (4.30-5.90) m/uL Hgb (13.0-17.5) gm/dL Hct (39.0-53.0) % MCHC (31.0-37.0) g/dL RDW (11.5-15.5) % BUN 32 H (9-20) mg/dL Creatinine 1.43 H (0.66-1.25) mg/dL Glucose 146 H (74-99) mg/dL POC Glucose (mg/dL) 184 H 183 H (70-110) mg/dL Calcium 8.0 L (8.4-10.2) mg/dL
[2024-02-23 17:09] LABS: Glucose,Whole Blood 142 mg/dL (70-110)
[2024-02-23 20:05] LABS: Glucose,Whole Blood 221 mg/dL (70-110)
[2024-02-23 20:53] LABS: Glucose,Whole Blood 219 mg/dL (70-110)
[2024-02-24 05:52] LABS: Anisocytosis Slight; HCT 24.3 % (39.0-53.0); HGB 7.7 gm/dL (13.0-17.5); Hypochromasia Marked; MCH 29.5 pg (25.0-35.0); MCHC 31.5 g/dL (31.0-37.0); MCV 93.6 fL (80.0-100.0); Macrocytosis Slight; Mean Platelet Volume 8.5; Platelet Count 212 k/uL (150-450); Poikilocytosis Slight; RDW 19.3 % (11.5-15.5); WBC 5.4 k/uL (3.8-10.6)
[2024-02-24 06:09] LABS: African American GFR (CKD) 44 (>60 ml/min/1.73 sqM); Anion Gap 5 mmol/L; Blood Urea Nitrogen 27 mg/dL (9-20); Calcium 8.2 mg/dL (8.4-10.2); Carbon Dioxide 28 mmol/L (22-30); Chloride 103 mmol/L (98-107); Glucose 132 mg/dL (74-99); Magnesium 1.9 mg/dL (1.6-2.3); Non-African American GFR(CKD) 38 (>60 ml/min/1.73 sqM); Potassium 3.9 mmol/L (3.5-5.1); Sodium 136 mmol/L (137-145)
[2024-02-24 07:01] LABS: Glucose,Whole Blood 180 mg/dL (70-110)
--- NOTE | 2024-02-24 07:24 | P.PN ---
Subjective Progress Note Date: 02/24/24 Principal diagnosis: Severe mitral valve regurgitation, acute on chronic heart failure with reduced ejection fraction, coronary artery disease with previous NSTEMI, and paroxysmal atrial fibrillation. Previous medical history of hypertension, anemia without any evidence of acute GI bleed status post upper and lower endoscopy, diabetes mellitus type 2, chronic kidney disease stage III-IV, previous tobacco dependence, mild obstructive lung disease, obstructive sleep apnea with home cpap use, obesity, prostate cancer status post 43 radiation treatments more than 5 years ago, frequent diarrhea POD #9 Coronary artery bypass grafting x 3 with left internal mammary artery to the left anterior descending coronary artery, sequential saphenous vein graft to first and second obtuse marginal coronary arteries, endovascular vein harvest left leg, mitral valve repair with 28 mm annular flex band, percutaneous placement of intra-aortic balloon pump via right common femoral artery, modified Mayer-Maze with complete left-sided lesion set using radiofrequency and cryoablation both epicardial and intracardiac, and ligation of the left atrial appendage with 2 layer suture closure. Postoperative acute blood loss anemia, expected given cardiopulmonary bypass, hemodilution and preoperative history of anemia Symptomatic bradycardia/asystole with brief CPR POD #4 placement of Micra permanent pacemaker by Dr. Estrella The patient was seen and examined this morning sitting up in recliner in the intensive care unit in no acute distress about to eat breakfast. He just returned from ambulating around the hallway in the intensive care unit. Currently in sinus rhythm with bundle branch block, heart rate in the mid 60s, hemodynamically stable, remains on room air with oxygen saturation in the high 90s and able to achieve 1250 mL on his incentive spirometry. He is in good spirits and denies any pain, states he feels better than when he came in. His cough is more productive but thin and clear, sputum culture 02/18 was positive for Enterobacter cloacae, WBC remains normal and he remains afebrile, IV Zosyn switched to oral Bactrim yesterday in anticipation of discharge to inpatient rehab today. He has been ambulating in the hallway with nursing staff/PT/OT, able to walk around ICU with several breaks. Chest x-ray, labs reviewed. Continues on oral amiodarone in addition to Lopressor per cardiology recommendations for A-fib prophylaxis. Transfer orders were placed 02/22/24 for 3 S. cardiac stepdown unit, no bed availability, remains in ICU as overflow. No other new concerns. Objective - Vital Signs Vital signs: Vital Signs Temp 97.9 F 02/24/24 04:00 Pulse 65 02/24/24 06:00 Resp 19 02/24/24 06:00 BP 125/94 02/24/24 06:00 Pulse Ox 96 02/24/24 06:00 FiO2 40 02/16/24 10:06 Intake & Output 02/23/24 02/24/24 02/24/24 18:59 06:59 18:59 Output Total 875 1050 Balance -875 -1050 Output: Urine 875 1050 Other: Voiding Method Urinal Urinal # Voids 1 3 ABP, PAP, CO, CI - Last Documented Arterial Blood Pressure 100/40 Pulmonary Artery Pressure 33/10 Cardiac Output 3.6 Cardiac Index 1.8 - Exam CONSTITUTIONAL: Appears comfortable, cooperative, no acute distress RESPIRATORY: Lungs sounds diminished in the bases bilaterally. Respirations even, nonlabored. Currently on room air with oxygen saturation 98%. Able to achieve 1250 mL on incentive spirometry. Strong productive cough with thin clear sputum. CARDIOVASCULAR: S1, S2 present. Regular rate and rhythm, sinus rhythm with bundle branch block on telemetry. Sternum stable. Palpable peripheral pulses bilaterally. No edema present. No calf pain or tenderness noted. Heart hugger in place with patient demonstrating appropriate use. Antiembolism stockings, SCDs present. GASTROINTESTINAL: Abdomen soft, nontender, nondistended. Active bowel sounds present 4 quadrants. Tolerating diet. Positive bowel movement 02/20 GENITOURINARY: Continues to void clear, yellow urine. Output 1625 mL in the last 24 hours INTEGUMENTARY: Skin is warm and dry. Anterior chest incision well ap proximated. Left lower extremity EVH site well approximated without redness or drainage. Bilateral groins soft, nontender NEUROLOGIC: Cranial nerves II through XII intact MUSKULOSKELETAL: Able to move all extremities, strength equal bilaterally, gait normal PSYCHIATRIC: Alert and oriented to person place and time, appropriate affect, intact judgment and insight - Allied health notes Allied health notes reviewed: nursing - Labs CBC & Chem 7: 02/24/24 05:22 02/24/24 05:22 Labs: Abnormal Lab Results - Last 24 Hours (Table) 09/03/24 09/03/24 09/03/24 Range/Units 12:09 17:07 20:04 RBC (4.30-5.90) m/uL Hgb (13.0-17.5) gm/dL Hct (39.0-53.0) % RDW (11.5-15.5) % Sodium (137-145) mmol/L BUN (9-20) mg/dL Creatinine (0.66-1.25) mg/dL Glucose (74-99) mg/dL POC Glucose (mg/dL) 183 H 142 H 221 H (70-110) mg/dL Calcium (8.4-10.2) mg/dL 02/23/24 02/24/24 02/24/24 Range/Units 20:51 05:22 05:22 RBC 2.60 L (4.30-5.90) m/uL Hgb 7.7 L (13.0-17.5) gm/dL Hct 24.3 L (39.0-53.0) % RDW 19.3 H (11.5-15.5) % Sodium 136 L (137-145) mmol/L BUN 27 H (9-20) mg/dL Creatinine 1.67 H (0.66-1.25) mg/dL Glucose 132 H (74-99) mg/dL POC Glucose (mg/dL) 219 H (70-110) mg/dL Calcium 8.2 L (8.4-10.2) mg/dL 02/24/24 Range/Units 07:00 RBC (4.30-5.90) m/uL Hgb (13.0-17.5) gm/dL Hct (39.0-53.0) % RDW (11.5-15.5) % Sodium (137-145) mmol/L BUN (9-20) mg/dL Creatinine (0.66-1.25) mg/dL Glucose (74-99) mg/dL POC Glucose (mg/dL) 180 H (70-110) mg/dL Calcium (8.4-10.2) mg/dL - Imaging and Cardiology Chest x-ray: image reviewed Assessment and Plan Assessment: Severe mitral valve regurgitation, status post mitral valve repair Acute on chronic heart failure with reduced ejection fraction, EF 25-30%, status post intra-aortic balloon pump Coronary artery disease with previous NSTEMI, status post three-vessel CABG Paroxysmal atrial fibrillation, status post modified mayer maze and ligation of the left atrial appendage Postoperative acute blood loss anemia, expected given cardiopulmonary bypass, hemodilution and preoperative history of anemia Symptomatic bradycardia/asystole with brief CPR, status post placement of Micra permanent pacemaker by Dr. Estrella Transaminitis, resolved Medical debility History of hypertension Anemia without any evidence of acute GI bleed status post upper and lower endoscopy Diabetes mellitus type 2, preoperative hemoglobin A1c 9.3% Chronic kidney disease stage III-IV, preoperative creatinine 2.24 Previous tobacco dependence Mild obstructive lung disease, preoperative FEV1 63% of predicted Obstructive sleep apnea with home cpap use Obesity Prostate cancer status post 45 radiation treatments more than 5 years ago Frequent diarrhea Plan: Continue to maximize medical therapy with aspirin, statin, Plavix, beta-charlette Continue oral amiodarone for A-fib prophylaxis Encourage incentive spirometry use 10 times every hour while awake. Bronch odilators per pulmonology Will monitor daily labs and chest x-rays. Electrolyte replacement per protocol. Continue Lasix, potassium supplementation. No further blood transfusion Increase activity, ambulate as tolerated. PT/OT/cardiac rehab following. Patient walks with a walker at home Pain control per current medication regimen Avoid nephrotoxic agents Continue home dose of Nephrocaps Insulin management per internal medicine Continue to record strict accurate intake and output Daily weights Shower daily Continue antibiotics, switched to oral yesterday Encourage oral nutrition, continue with supplements Anticipate discharge to inpatient rehab this morning More recommendations to follow based on patient's clinical course
--- NOTE | 2024-02-24 07:55 | XR ---
EXAMINATION TYPE: XR chest 2V DATE OF EXAM: 02/24/2024 COMPARISON: 02/23/2024 TECHNIQUE: PA and lateral views submitted. HISTORY: Postcardiac surgery FINDINGS: Small bilateral pleural effusion with basilar atelectasis. Median sternotomy changes seen. Implantabl e loop recorder device noted. No pneumothorax. No overt failure. Mild cardiomegaly. Degenerative garcia ge of the spine. IMPRESSION: 1. Stable tiny bilateral effusion and basilar atelectasis favored over infiltrate.
--- NOTE | 2024-02-24 09:36 | P.DS ---
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 Consult: post cardiac surgery Do you want consulting provider notified?: Yes Consult Physician Routine Consulting Provider: Umair Pelletier Consult Reason/Comments: Grain Spouter Consult: post cardiac surgery Do you want consulting provider notified?: Yes Consult Physician Routine Consulting Provider: Wanda Laws Consult Reason/Comments: Medical Management Do you want consulting provider notified?: Yes 02/16/24 07:23 Consult Physician Routine Consulting Provider: Steve Vega Consult Reason/Comments: renal disease Do you want consulting provider notified?: Yes 02/18/24 12:58 Consult Physician Routine Consulting Provider: Sushant Mansfield Consult Reason/Comments: inpatient rehab at discharge Do you want consulting provider notified?: Yes Primary care physician: [facility] Course: FINAL DIAGNOSIS: Severe mitral valve regurgitation Acute on chronic heart failure with reduced ejection fraction, EF 25-30% Coronary artery disease with previous NSTEMI Paroxysmal atrial fibrillation Postoperative acute blood loss anemia, expected given cardiopulmonary bypass, hemodilution and preoperative history of anemia Symptomatic bradycardia/asystole with brief CPR Transaminitis, resolved Medical debility History of hypertension Anemia without any evidence of acute GI bleed status post upper and lower endoscopy Diabetes mellitus type 2, preoperative hemoglobin A1c 9.3% Chronic kidney disease stage III-IV, preoperative creatinine 2.24 Previous tobacco dependence Mild obstructive lung disease, preoperative FEV1 63% of predicted Obstructive sleep apnea with home cpap use Obesity Prostate cancer status post 45 radiation treatments more than 5 years ago Frequent diarrhea PRINCIPAL PROCEDURE: Coronary artery bypass grafting x 3 with left internal mammary artery to the left anterior descending coronary artery, sequential saphenous vein graft to first and second obtuse marginal coronary arteries Endovascular vein harvest left leg Mitral valve repair with 28 mm annular flex band Percutaneous placement of intra-aortic balloon pump via right common femoral artery Modified Vazquez-Maze with complete left-sided lesion set using radiofrequency and cryoablation both epicardial and intracardiac Ligation of the left atrial appendage with 2 layer suture closure Placement of Micra permanent pacemaker by Dr. Estrella HISTORY OF PRESENT ILLNESS: This is an 78-year-old gentleman who follows on an outpatient basis with Dr. Ton Nash for his primary care. He presented to the emergency department at [facility] on December 24, 2023 with complaints of chest heaviness, shortness of breath and diaphoresis. EKG in the emergency department showed atrial fibrillation with rapid ventricular response with a heart rate of 150 bpm. During that admission he was recommended to undergo heart catheterzation and echocardiogram. Transthoracic echo showed reduced left ventricular systolic function with EF 25-30%, moderate to severe mitral valve regurgitation, trace tricuspid valve regurgitation, trace pulmonic valve regurgitation, and a normal size aortic root and proximal ascending aorta. Heart catheterization demonstrated triple-vessel coronary artery disease with 80% stenosis to the mid LAD, 90% stenosis to the mid OM #2, and moderate disease to the PDA. He also had TIFFANY completed demonstrating moderately reduced global LV systolic function, severe mitral valve regurgitation secondary to restricted motion of the posterior mitral leaflet, moderate tricuspid valve regurgitation, no evidence of thrombus in the left atrial appendage, and severe left atrial dilatation. Consult was placed to cardiothoracic surgery for surgical recommendations. Initially recommendations were made for PCI with possible MitraClip down the road due to the patient's age and frailty. He did follow-up outpatient with Dr. Das, he was highly motivated, and recommendations were then made for surgical mitral valve repair and CABG. The usual perioperative course was discussed in detail with the patient and his family, all risks and benefits were explained, all questions were answered, and consent was obtained to proceed with surgery. The patient was scheduled for surgery at the earliest possible date, however preoperative lab work revealed anemia with hemoglobin 6.2 and surgery was deferred until patient had endoscopy without evidence of acute bleed. HOSPITAL COURSE: The patient was brought to the hospital on 02/15/24, taken to the preoperative area, prepared in the usual fashion, and subsequently taken to the operating room where Dr. Das performed three-vessel CABG and mitral valve repair along with modified Vazquez-Maze and ligation of the left atrial appendage. Upon completion of surgery the patient was transferred to the cardiovascular intensive care unit where he was recovered and monitored hemodynamically. He was extubated, all lines, tubes, and drips were discontinued when appropriate. The patient did have a shona recovery including symptomatic bradycardia requiring placement of permanent pacemaker. His oxygen was titrated down, he continued to work with physical and occupational therapy, he was tolerating oral diet, his pain was controlled. Transfer orders for 3 S. cardiac stepdown unit were placed, however there was no bed availability and the patient remained in the intensive care unit until discharge. He was ready to be discharged to [facility] inpatient rehab on postoperative day #9. He received written and verbal instruction regarding his medications, activity restrictions, signs and symptoms requiring physician notification, and follow-up appointments. Patient Condition at Discharge: Stable Plan - Discharge Summary Discharge Rx Participant: Yes New Discharge Prescriptions: New Aspirin 325 mg PO DAILY tab Sulfamethox-Tmp 800-160Mg [Bactrim DS 800-160 mg] 1 each PO BID 4 Days tab Ipratropium-Albuterol Nebulize [Duoneb 0.5 mg-3 mg/3 ml Soln] 3 ml INHALATION RT-QID each Ipratropium-Albuterol Nebulize [Duoneb 0.5 mg-3 mg/3 ml Soln] 3 ml INHALATION RT-Q2H PRN each PRN Reason: Shortness Of Breath Or Wheezing Metoprolol Tartrate [Lopressor] 25 mg PO BID tab Melatonin 6 mg PO HS PRN tab PRN Reason: sleep INSULIN ASPART (NovoLOG) [NovoLOG (formulary)] 3 unit SQ ACHS each Sennosides-Docusate Sodium [Senokot-S] 2 each PO HS tab Budesonide-Formot 160-4.5 Mcg [Symbicort 160-4.5 Mcg Inhaler] 2 puff INHALATION RT-BID each Acetaminophen Tab [Tylenol] 1,000 mg PO Q6HR PRN tab PRN Reason: Fever And/ Or Mild Pain (1-3) Darbepoetin New [Aranesp] 80 mcg SQ Q7D each Benzocaine/Menthol Lozeng [Cepacol lozenge] 1 each MUCOUS MEM Q2H PRN lozenge PRN Reason: Sore Throat Amiodarone [Cordarone] 400 mg PO BID tab bisacodyL [Dulcolax] 10 mg RECTAL DAILY PRN suppositor PRN Reason: Constipation Ferrous Sulfate [Iron (65 MG Elemental)] 325 mg PO BID tab Potassium Chloride ER [K-Dur 20] 20 meq PO DAILY 30 Days tab Insulin Detemir (Levemir) [Levemir] 15 unit SQ DAILY@0700 each Magnesium Oxide [Mag-Ox] 400 mg PO BID tab guaiFENesin [Mucinex] 1,200 mg PO Q12HR tab INSULIN ASPART (NovoLOG) [NovoLOG (formulary)] 0 unit SQ ACHS each Clopidogrel [Plavix] 75 mg PO DAILY tab Ascorbic Acid [Vitamin C] 500 mg PO BID tab Continue Timolol 0.5% Ophth Soln [Timoptic 0.5% Ophth Soln] 1 drop BOTH EYES BID Pantoprazole [Protonix] 40 mg PO BID Dapagliflozin Propanediol [Farxiga] 10 mg PO DAILY #30 tab Atorvastatin [Lipitor] 40 mg PO DAILY #30 tab Folic Acid-Vit B Complex-Vit C [Nephrocaps] 1 cap PO DAILY Furosemide [Lasix] 40 mg PO DAILY Menthol-Zinc Oxide Oint [Calmoseptine Ointment] 1 applic TOPICAL TID Discontinued Isosorbide Mononitrate ER [Imdur] 30 mg PO DAILY #30 tab Apixaban [Eliquis] 2.5 mg PO BID Metoprolol Tartrate [Lopressor] 125 mg PO BID Amiodarone [Cordarone] 200 mg PO DAILY glipiZIDE XL [Glucotrol XL] 10 mg PO BID Discharge Medication List Timolol 0.5% Ophth Soln [Timoptic 0.5% Ophth Soln] 1 drop BOTH EYES BID 12/24/23 [History] Atorvastatin [Lipitor] 40 mg PO DAILY #30 tab 01/01/24 [Rx] Dapagliflozin Propanediol [Farxiga] 10 mg PO DAILY #30 tab 01/01/24 [Rx] Folic Acid-Vit B Complex-Vit C [Nephrocaps] 1 cap PO DAILY 01/24/24 [History] Furosemide [Lasix] 40 mg PO DAILY 02/15/24 [History] Menthol-Zinc Oxide Oint [Calmoseptine Ointment] 1 applic TOPICAL TID 02/15/24 [History] Pantoprazole [Protonix] 40 mg PO BID 02/15/24 [History] Acetaminophen Tab [Tylenol] 1,000 mg PO Q6HR PRN tab 02/24/24 [Rx] Amiodarone [Cordarone] 400 mg PO BID tab 02/24/24 [Rx] Ascorbic Acid [Vitamin C] 500 mg PO BID tab 02/24/24 [Rx] Aspirin 325 mg PO DAILY tab 02/24/24 [Rx] Benzocaine/Menthol Lozeng [Cepacol lozenge] 1 each MUCOUS MEM Q2H PRN lozenge 02/24/24 [Rx] Budesonide-Formot 160-4.5 Mcg [Symbicort 160-4.5 Mcg Inhaler] 2 puff INHALATION RT-BID each 02/24/24 [Rx] Clopidogrel [Plavix] 75 mg PO DAILY tab 02/24/24 [Rx] Darbepoetin New [Aranesp] 80 mcg SQ Q7D each 02/24/24 [Rx] Ferrous Sulfate [Iron (65 MG Elemental)] 325 mg PO BID tab 02/24/24 [Rx] INSULIN ASPART (NovoLOG) [NovoLOG (formulary)] 0 unit SQ ACHS each 02/24/24 [Rx] INSULIN ASPART (NovoLOG) [NovoLOG (formulary)] 3 unit SQ ACHS each 02/24/24 [Rx] Insulin Detemir (Levemir) [Levemir] 15 unit SQ DAILY@0700 each 02/24/24 [Rx] Ipratropium-Albuterol Nebulize [Duoneb 0.5 mg-3 mg/3 ml Soln] 3 ml INHALATION RT-Q2H PRN each 02/24/24 [Rx] Ipratropium-Albuterol Nebulize [Duoneb 0.5 mg-3 mg/3 ml Soln] 3 ml INHALATION RT-QID each 02/24/24 [Rx] Magnesium Oxide [Mag-Ox] 400 mg PO BID tab 02/24/24 [Rx] Melatonin 6 mg PO HS PRN tab 02/24/24 [Rx] Metoprolol Tartrate [Lopressor] 25 mg PO BID tab 02/24/24 [Rx] Potassium Chloride ER [K-Dur 20] 20 meq PO DAILY 30 Days tab 02/24/24 [Rx] Sennosides-Docusate Sodium [Senokot-S] 2 each PO HS tab 02/24/24 [Rx] Sulfamethox-Tmp 800-160Mg [Bactrim DS 800-160 mg] 1 each PO BID 4 Days tab 02/24/24 [Rx] bisacodyL [Dulcolax] 10 mg RECTAL DAILY PRN suppositor 02/24/24 [Rx] guaiFENesin [Mucinex] 1,200 mg PO Q12HR tab 02/24/24 [Rx] Follow up Appointment(s)/Referral(s): Umair Pelletier MD [Medical Doctor] - 1 Week (Please call for appointment upon discharge from [facility]) Rehab Maral GAVIN,Cardiac [NON-STAFF] - 4 Weeks (You will receive a phone call in approximately 4-6 weeks for evaluation for cardiac rehab) Hunter Das MD [STAFF PHYSICIAN] - 03/17/24 2:15 pm Angelo Lo DO [Doctor of Osteopathic Medicine] - 1 Week (Please call for appointment upon discharge from [facility]) Ton Nash DO [Primary Care Provider] - 1 Week (Please call for appointment upon discharge from [facility]) Steve Vega DO [STAFF PHYSICIAN] - 1 Week (Please call for appointment upon discharge from [facility]) Activity/Diet/Wound Care/Special Instructions: CONSULTATIONS AT [facility]: Dr. Pelletier for cardiology Dr. Vega for nephrology Continue Bactrim for 4 days then discontinue. Continue amiodarone 400 mg twice daily until 02/29/24, then decrease to 200 mg twice daily until 03/07/24, then decrease to 200 mg daily DISCHARGE INSTRUCTIONS: 1. No driving for 4 weeks, or until physician gives their ok. 2. The patient should sleep in their own bed, no medical bed needed. 3. Stairs are not an issue. If the bedroom is upstairs, it is advised that the patient go up at night and down in the morning for the first week. Go slowly, using handrail and take 1 step at a time. 4. RAYMUNDO hose are to be worn for 30 days post surgery or until physician discontinues. 5. Heart hugger is to be worn 100% of the time until physician discontinues.(except when showering) 6. No lifting, pushing, or pulling more than 10 pounds for 12 weeks. The physician will advise of any restriction changes. 7. The patient is expected to continue the prescribed walking program. 8. Continue pain control per as needed orders. 9. Continue with incentive spirometry and splinting/heart hugger until otherwise directed by the physician. 10. Must shower daily using liquid antibacterial soap 11. Routine sternal incision care. No powders, lotions, ointments on incisions. No dressings are necessary on incisions unless they are draining. Dermabond tape is to remain on sternal incision until surgeon follow-up. 12. Please call surgeon/DRESSING MACHINE OPERATOR for temp greater than 101 F or purulent drainage from incisions. 13. You should weigh yourself daily, record and bring log with you to follow up appointments. 14. Prescription refills need to be filled through embryology teacher/primary care nathaniel arvizu. 15. A Red armband has been placed on the patient. It should be worn for 30 days post discharge from surgery and will be removed by the cardiac surgeons. If an ER visit is necessary, please make sure the number on the Red armband is called before going to ER. 16. You have been referred to and are expected to begin Cardiac Rehab in approximately 4-6 weeks. 17. Quitting smoking is the most important step you can take to improve your health. For additional information and assistance to quit smoking, please call the [place] tobacco quit line (1-591-VYXG-NOW/ ) or online: [email or web address] SERVICES TO PROVIDE: RN SKILLED HOME CARE SERVICES FOR POST-OP SURGICAL PATIENTS WITH THE FOLLOWING: Coronary Artery Bypass Surgery (CABG), Mitral Valve Replacement/Repair ( MVR), Aortic Valve Replacement/Repair (AVR) RN TO CONTINUE EDUCATION FROM ``ROAD TO A HEALTH HEART PATIENT EDUCATION MANUAL (GIVEN TO PATIENT IN THE HOSPITAL) MEDICATION RECONCILIATION WITH EDUCATION NEEDED ON FIRST HOME VISIT EMPHASIZE IMPORTANCE OF WEARING BREAST SUPPORT/HEART HUGGER ENCOURAGE USE OF INCENTIVE SPIROMETER 10 X EVERY HOUR WHILE AWAKE ENCOURAGE UTILIZATION OF LOWER EXTREMITY COMPRESSION STOCKINGS/RAYMUNDO HOSE and ELEVATE LEGS ABOVE LEVEL OF HEART WHILE AT REST. ENCOURAGE AMBULATION 3-5x/day INCREASING TOLERATES, WHILE AVOIDING EXTREMES IN TEMPERATURE REGIONAL OFFICE COORDINATOR TO OPEN THE PATIENT WITHIN 24 HOURS OF DISCHARGE FROM REHAB WITH TELEHEALTH INSTALLED AT [facility], RN TO VISIT 2-3 X A WEEK FOR 4 WEEKS ESTABLISHED BY PATIENT NEEDS. LABORATORY: CBC, CMP TO BE DRAWN ON THE THIRD DAY HOME, (RAN STAT) FAX RESULTS TO [phone]. TELEHEALTH PARAMETERS: WEIGHT: NOTIFY MD OF WEIGHT GAIN OF 2 LBS IN 24 HOURS OR 5 LBS IN ONE WEEK HR: NOTIFY MD OF HR <55 BPM OR HR>100 BPM BP: NOTIFY MD IF BP <90/55 OR BP>140/100 O2 SAT: NOTIFY MD IF PO2<93% ON ROOM AIR SEND TELEHEALTH REPORT TO COMMERCIAL LOAN COLLECTION OFFICER AND CARDIOVASCULAR SURGEON THE FIRST WEEK OF CARE AND THEN BI-WEEKLY. PLEASE ADDITIONALLY COMMUNICATE ANY ABNORMALS AND NEW FINDINGS TO THE SURGEONS OFFICE. Discharge Disposition: DC/TRNS INTERMEDIATE CARE FAC
--- NOTE | 2024-02-24 09:45 | P.PN ---
Subjective Progress Note Date: 02/24/24 The patient is an 78-year-old male with multiple comorbid conditions. The patient is currently admitted after undergoing coronary artery bypass x 3 as well as a mitral valve repair. Postoperatively the patient had intermittent heart block and therefore underwent pacemaker insertion. Patient interviewed and examined resting comfortably in the recliner chair. He states he feels well this morning and plans for transfer to rehab later today. GENERAL: Well-appearing, well-nourished and in no acute distress. NECK: Supple without JVD or thyromegaly. LUNGS: Breath sounds coarse to auscultation bilaterally. Respiration equal and unlabored. HEART: Regular rate and rhythm without murmurs, rubs or gallops. S1 and S2 heard. EXTREMITIES: Normal range of motion, no edema. No clubbing or cyanosis. Periphe ral pulses intact and strong. Bruising noted in the bilateral groins TELEMETRY: Sinus rhythm with intermittent pacing LABS: WBC 5.4, hemoglobin 7.7, hematocrit 24.3, platelet 212, sodium 136, potassium 3.9, BUN 27, creatinine 1.67, magnesium 1.9 IMPRESSION: Severe mitral valve regurgitation, status post mitral valve repair with 28 mm annular flex band. Coronary artery disease status post coronary artery bypass grafting x 3 with left internal mammary artery to the left anterior sending coronary artery. Persistent paroxysmal atrial fibrillation status post modified Vazquez-Maze with complete left-sided lesion set using radiofrequency and cryoablation both epicardial and intracardiac, and ligation of the left atrial appendage with 2 layer suture closure. Acute on chronic congestive heart failure with reduced ejection fraction; EF 25 to 30% Intermittent heart block, status post MICRA pacemaker Chronic kidney disease Diabetes mellitus type 2 PLAN: Patient to follow-up with primary director global strategic publisher sales Dr. Pelletier in 1 week I am dictating on behalf of Dr Pineda Estrella's history/physical and assessm ent/plan. Objective - Vital Signs Vital signs: Vital Signs Temp 97.9 F 02/24/24 04:00 Pulse 68 02/24/24 07:00 Resp 24 02/24/24 07:00 BP 144/117 02/24/24 07:00 Pulse Ox 96 02/24/24 06:00 FiO2 40 02/16/24 10:06 Intake & Output 02/23/24 02/24/24 02/24/24 18:59 06:59 18:59 Output Total 873 1050 Balance -875 -1050 Output: Urine 87 1050 Other: Voiding Method Urinal Urinal # Voids 1 3 ABP, PAP, CO, CI - Last Documented Arterial Blood Pressure 100/40 Pulmonary Artery Pressure 33/10 Cardiac Output 3.6 Cardiac Index 1.8 - Labs CBC & Chem 7: 02/24/24 05:22 02/24/24 05:22 Labs: Abnormal Lab Results - Last 24 Hours (Table) 02/23/24 02/23/24 02/23/24 Range/Units 12:09 17:07 20:04 RBC (4.30-5.90) m/uL Hgb (13.0-17.5) gm/dL Hct (39.0-53.0) % RDW (11.5-15.5) % Sodium (137-145) mmol/L BUN (9-20) mg/dL Creatinine (0.66-1.25) mg/dL Glucose (74-99) mg/dL POC Glucose (mg/dL) 183 H 142 H 221 H (70-110) mg/dL Calcium (8.4-10.2) mg/dL 02/23/24 02/24/24 02/24/24 Range/Units 20:51 05:22 05:22 RBC 2.60 L (4.30-5.90) m/uL Hgb 7.7 L (13.0-17.5) gm/dL Hct 24.3 L (39.0-53.0) % RDW 19.3 H (11.5-15.5) % Sodium 136 L (137-145) mmol/L BUN 27 H (9-20) mg/dL Creatinine 1.67 H (0.66-1.25) mg/dL Glucose 132 H (74-99) mg/dL POC Glucose (mg/dL) 219 H (70-110) mg/dL Calcium 8.2 L (8.4-10.2) mg/dL 02/24/24 Range/Units 07:00 RBC (4.30-5.90) m/uL Hgb (13.0-17.5) gm/dL Hct (39.0-53.0) % RDW (11.5-15.5) % Sodium (137-145) mmol/L BUN (9-20) mg/dL Creatinine (0.66-1.25) mg/dL Glucose (74-99) mg/dL POC Glucose (mg/dL) 180 H (70-110) mg/dL Calcium (8.4-10.2) mg/dL
[2024-02-24 09:58] VITALS: TEMP 99.1
[2024-02-24] MEDS: POTASSIUM BICARBONATE/CIT AC 20 MEQ TABLET.EFF PO SCH (10:16)
[2024-02-24 11:04] VITALS: BP 112/76; PULSE 64; RESP 24
[2024-02-24 11:10] LABS: Glucose,Whole Blood 234 mg/dL (70-110)
--- NOTE | 2024-02-24 12:29 | P.PN ---
Subjective patient is seen for follow-up for chronic kidney disease. No significant complaints. serum creatinine at 1.6 mg/dL today. Patient was started on Bactrim yesterday. Lasix remains at 20 mg IV every 8 hours. Objective - Vital Signs Vital signs: Vital Signs Temp 99.1 F 02/24/24 08:00 Pulse 64 02/24/24 11:00 Resp 24 02/24/24 11:00 BP 112/76 02/24/24 11:00 Pulse Ox 95 02/24/24 10:00 FiO2 40 02/16/24 10:06 Intake & Output 02/23/24 02/24/24 02/24/24 18:59 06:59 18:59 Intake Total 500 Output Total 875 1050 0 Balance -875 -1050 500 Intake: Oral 500 Output: Urine 875 1050 0 Other: Voiding Method Urinal Urinal Urinal # Voids 1 3 ABP, PAP, CO, CI - Last Documented Arterial Blood Pressure 100/40 Pulmonary Artery Pressure 33/10 Cardiac Output 3.6 Cardiac Index 1.8 - Exam awake, comfortable, no acute distress Alert oriented 3 Examination of the heart S1 and S2 Examination of the lungs bilateral breath sounds are heard Abdomen is soft nontender Examination of lower extremities shows no significant edema - Labs CBC & Chem 7: 02/24/24 05:22 02/24/24 05:22 Labs: Abnormal Lab Results - Last 24 Hours (Table) 02/23/24 02/23/24 02/23/24 Range/Units 17:07 20:04 20:51 RBC (4.30-5.90) m/uL Hgb (13.0-17.5) gm/dL Hct (39.0-53.0) % RDW (11.5-15.5) % Sodium (137-145) mmol/L BUN (9-20) mg/dL Creatinine (0.66-1.25) mg/dL Glucose (74-99) mg/dL POC Glucose (mg/dL) 142 H 221 H 219 H (70-110) mg/dL Calcium (8.4-10.2) mg/dL 02/24/24 02/24/24 02/24/24 Range/Units 05:22 05:22 07:00 RBC 2.60 L (4.30-5.90) m/uL Hgb 7.7 L (13.0-17.5) gm/dL Hct 24.3 L (39.0-53.0) % RDW 19.3 H (11.5-15.5) % Sodium 136 L (137-145) mmol/L BUN 27 H (9-20) mg/dL Creatinine 1.67 H (0.66-1.25) mg/dL Glucose 132 H (74-99) mg/dL POC Glucose (mg/dL) 180 H (70-110) mg/dL Calcium 8.2 L (8.4-10.2) mg/dL 02/24/24 Range/Units 11:09 RBC (4.30-5.90) m/uL Hgb (13.0-17.5) gm/dL Hct (39.0-53.0) % RDW (11.5-15.5) % Sodium (137-145) mmol/L BUN (9-20) mg/dL Creatinine (0.66-1.25) mg/dL Glucose (74-99) mg/dL POC Glucose (mg/dL) 234 H (70-110) mg/dL Calcium (8.4-10.2) mg/dL Assessment and Plan Assessment: 1. Chronic kidney disease stage IIIb secondary to diabetic kidney disease with baseline creatinine 1.5-22. Serum creatinine elevated at 1.6 today secondary to use of Bactrim with decrease secretion of creatinine and subsequent elevated serum level. 2. Coronary artery disease status post CABG x 3 and mitral valve repair February 15, 2024. 3. Diabetes mellitus. 4. Anemia of chronic kidney disease with component of acute blood loss post CA BG. on Aranesp. 5. Metabolic acidosis secondary to chronic kidney disease and IV fluids. On oral bicarb. 6. Chronic systolic CHF. Ejection fraction 25 to 30% 7. Mild volume overload. On IV Lasix. 8. Acute kidney injury secondary to vasomotor nephropathy from diuresis. improved. 9. Symptomatic bradycardia status post pacemaker placement on 02/20/2024 Plan: continue with Lasix 20 mg daily post discharge. May need to increase to 40 mg alternating with 20 mg depending on volume status. repeat labs as outpatient in 3-4 days. Okay to use Bactrim for Enterobacter cloacae on sputum culture
--- NOTE | 2024-02-24 20:23 | P.PN ---
Subjective Progress Note Date: 02/24/24 Patient is a-year-old white male with past medical history significant for prostate cancer, diabetes mellitus, hypertension, angina, atrial fibrillation normally anticoagulated on Eliquis. Of note, patient had a recent hospitalization 12/24/2023 where he did have an extensive cardiac workup. He was found to have multivessel coronary artery disease and severe mitral regurgitation. Cardiac cath done on 12/28/2023 demonstrates 80% mid LAD stenosis, 90% mid OM2 disease, and moderate diffuse disease in the PDA. Cardiothoracic team was asked to evaluate this patient up for potential open heart surgery. Echocardiogram done the same admission showed a left ventricular ejection fraction estimated at 25 to 30%, as well as, moderate to severe mitral valve regurgitation. Patient underwent open heart surgery yesterday 02/15/2024 including coronary artery bypass grafting x 3 with POSADA to LAD, sequential saphenous vein graft to first and second obtuse marginal coronary arteries, mitral valve repair with 28 mm annular flex band, modified Vazquez-Maze with completed left sided lesion set using RF and cryoablation, ligation of left atrial appendage, and percutaneous placement of intra-aortic balloon pump. Patient was transferred to the intensive care unit postoperatively in critical condition. Or exit time documented at 1430. He did have a 2 L EBL. Status post 4 units PRBC, 2 FFP, 2 platelets, 1.5 L albumin, and 1200 mL Cell Saver. He remains intubated to mechanical ventilator. Postoperative chest x-ray shows mild pulmonary congestion and cardiomegaly, no pneumothorax. Endotracheal tube 2.6 cm above the clark. NG tube courses below the diaphragm. Buckley-Julius catheter with tip projecting over the spine, mediastinal and left thoracotomy tubes in place. Postoperative ABG PaO2 204, pCO2 40, pH 7.36. Current ventilator settings including assist-control, respiratory rate 14, tidal volume 500, FiO2 50%, PEEP of 5. Peak pressure 22, no significant airway secretions. Patient is lightly sedated on propofol which is currently infusing at 50 mcg/kg/min. He does awaken to verbal stimuli, follows all commands, moves all 4 extremities equally. Reportedly has not been extubated at this point, due to increased vasopressor requirements. He is on a one-to-one balloon pump with augmented pressure of 87 mean pressure 65. CI 2.4/CO 4.8. Pulmonary artery pressure 47/22. CVP 14. Milrinone infusing at 0.2 mcg/kg/min. Norepinephrine infusing at 0.04 mcg/kg/min. Normal saline also infusing at 50 mL/h. Insulin per protocol. He does have an epicardial pacemaker wires, currently DDI settings at a rate of 80 bpm. Patient does have 2 mediastinal chest tubes hooked to an atrium with 470 mL of serosanguineous output at this point in time. Left pleural chest tube has a total of 180 mL of serosanguineous output. These are both to negative 20 cm H2O suction. No obvious air leak. Urinary catheter is in place, draining adequate urine output in the order of 30 to 40 mL/h. Most re cent CBC: WBC count 5.9, hemoglobin 8, hematocrit 24.8, platelets 127. Coagulation profile including PT 13.6, INR 1.3, APTT 28.6, fibrinogen 215. CMP: Sodium 141, potassium 3.9, chloride 111, serum bicarb 23, BUN 33, creatinine 1.56, glucose 149. Ionized calcium 5. AST 194, ALT 95, ALP 56. Plan is to pursue extubation later this morning. The patient is seen today February 17, 2024 in follow-up in the intensive care unit. Postoperative day #2. He is currently sitting up in chair at the beds shweta. Awake and alert in no acute distress. Chest x-ray continues to show some atelectasis and small effusions bilaterally. He is a good encouraged regarding the increased use of the incentive spirometer. Cardiac output 6.1. Cardiac index 3.1. He is on normal saline at 30 mL/h. Primacor was discontinued this morning. He remains on insulin drip at 6 units/h. Mediastinal and left chest tubes remain in place. White count 10.0. Hemoglobin 7.3. Platelets 116. Sodium 140. Potassium 3.9. Bicarb 22. BUN 26. Creatinine 1.68. Glucose 123. He remains on DuoNeb inhalations, Symbicort, Mucinex. Heparin for DVT prophylaxis. The patient is seen today February 18, 2024 in follow-up in the intensive care unit. Postoperative day #3. He is awake and alert in no acute distress. Maintaining good O2 saturations in the mid 90s on room air. He is afebrile. Hemodynamically stable. Sitting up in a chair at the bedside. He has been on several walks yesterday and earlier today. He is doing well. Working well with the incentive spirometer. No worsening shortness of breath, cough or congestion. This x-ray continues to show mild pulmonary edema. Mediastinal and left chest tubes in place. Cordis in place. He has normal saline at 30 mL/h. White count 8.4. Hemoglobin 7.3. Platelets 132. Sodium 135. Potassium 4.3. Bicarb 18. BUN 33. Creatinine 1.78. Glucose 136. AST 110. ALT 44. He remains on DuoNeb inhalations. Heparin for DVT prophylaxis. He remains on Lasix 20 mg IV every 8 hours. He is currently in a +1.5 L balance. The patient is seen today February 19, 2024 in follow-up in the intensive care unit. Postoperative day #4. He is currently sitting up in a chair. Awake and alert in no acute distress. Maintaining O2 saturations in the 90s on room air. No IV fluids. His chest x-ray is showing improvement in the pulmonary congestion. He is doing better with the incentive spirometer currently pulling 1250 mL. He remains on IV diuretics. In a positive balance still. He is continued on bronchodilators. Heparin for DVT prophylaxis. White count 5.7. Hemoglobin 7.0. Platelets 132. Sodium 135. Potassium 3.7. Bicarb 18. BUN 46. Creatinine 2.17. Glucose 114. The patient is seen today February 20, 2024 in follow-up in the intensive care unit. Postoperative day #5. He is currently resting comfortably in bed. Awake and alert in no acute distress. He did have a significant event yesterday while up to the shower went unresponsive and required 1 minute of CPR and resumption of temporary pacing and recovered. Plan is for permanent pacemaker implantation today. Chest x-ray shows worsening mild bibasilar infiltrates. He is working with the incentive spirometer. He is maintaining O2 saturations in the 90s on room air. He is status post 4 units of packed red blood cells, 2 units of fresh frozen plasma and 2 units of platelets this admission. White count 5.4. Hemoglobin 7.8. Platelets 163. Sodium 135. Potassium 4.2. Bicarb 22. BUN 44. Creatinine 1.81. Glucose 168. He is continued on DuoNeb inhalations, Symbicort, IV diuretics. Heparin for DVT prophylaxis. He is currently in a - 1.1 L balance. The patient is seen today February 21, 2024 in follow-up in the intensive care unit. Postoperative day #6. He is currently sitting up at the bedside. Awake and alert in no acute distress. He did undergo permanent pacemaker implantation yesterday. He is still having issues with atrial fibrillation with rapid ventricular response and is receiving amiodarone bolus and subsequent amiodarone infusion. His hemoglobin is 7.0. He is pale. White count 6.0. Platelets 208. Sodium 138. Potassium 3.7. Bicarb 25. BUN 37. Creatinine 1.56. Glucose 153. O2 saturations in the mid 90s on room air. He is been afebrile. Chest x-ray shows a small right pleural effusion. Improved left costophrenic angle infiltrate likely atelectasis. He continues to work well with his incentive spirometer. Follow-up echocardiogram revealed mildly impaired left ventricular systolic function with ejection fraction of 40 to 45%. He remains on DuoNeb and elations, Symbicort. Remains on IV diuretics. Heparin for DVT prophylaxis. Antibiotics in the form of Zosyn. Sputum culture was positive for Enterobacter cloacae. The patient is seen today February 22, 2024 in follow-up in the intensive care unit. Postoperative day #7. He is sitting up in a chair. Awake and alert in no acute distress. He is maintaining O2 saturations in the 90s on room air. He is afebrile. Hemodynamically stable. Chest x-ray shows persistent small left pleural effusion. Right lung is clear. No pneumothorax. His hemoglobin is 6.8 today he will be receiving 1/5 unit of packed red blood cells in total. 2 units of fresh frozen plasma. 2 units of platelets. Count 5.0. Platelets 169. Sodium 138. Potassium 3.8. Bicarb 24. BUN 36. Creatinine 1.51. Glucose 137. He continues to work well with the incentive spirometer. He is continued on DuoNeb inhalations, Symbicort. Remains on IV diuretics. Heparin for DVT prophylaxis. Antibiotics in the form of Zosyn. Sputum culture was positive for Enterobacter cloacae complex. He is currently in a -150 mL balance. On today's evaluation of 02/23/2024, the patient is currently being seen for a follow-up. Patient is doing well and the patient is currently on room air oxygen. Limited cough and congestion. Sternal wound is dry clean and intact. A follow-up chest x-ray was done this morning and the patient is showing some lower lobe pulmonary infiltrates and small bilateral pleural effusions. Antibiotics have been switched to oral Bactrim as the patient had Enterobacter in his sputum. Clearance was obtained by nephrology as the patient had an acute kidney injury and the creatinine continues to improve and currently creatinine is down to 1.4. Will monitor the creatinine and the potassium level as the patient is being given treated with Bactrim. Patient's hemoglobin is at 7.8. The white cell count of 5.1 and a platelet count of 186. The patient is having paroxysmal atrial fibrillation. Current rhythm is sinus. The patient remains on amiodarone 400 mg p.o. twice a day and the patient is also on metoprolol 25 mg twice a day. The patient remains on Plavix. The patient is also on Lasix 20 mg IV every 8 hours with a negative fluid balance of 1.1 L over the past 24 hours. As far as surgery, the patient has undergone mitral valve repair. The patient also underwent three-vessel bypass surgery. The patient is status post modified Vazquez-Maze procedure and the patient's baseline ejection fraction of 25 to 30%. Based on intermittent heart block, the patient was given a Micra pacemaker. He is diabetic. The patient is postop day #8. On today's evaluation of 02/24/2024, the patient is feeling well and has no specific complaints. Remains on room air oxygen. No significant cough or sputum production. The patient is status post mitral valve repair and this was done for severe mitral regurgitation the patient underwent three-vessel bypass surgery and modified Vazquez-Maze procedure. His cardiac rhythm is paced. The patient has a Micra pacemaker in place. He also has a preop ejection fraction of 25 to 30%. The Micra pacemaker was inserted for intermittent heart blocks. The patient is also completing course of antibiotics as the patient was found to have Enterobacter in sputum. Currently on Bactrim. This will be completed for a total of 7 days. He is on oral Lasix 40 mg p.o. daily. He is also on a combination of amiodarone 400 mg p.o. twice a day and metoprolol 25 mg p.o. twice a day. This was given for paroxysmal atrial fibrillation. He is on Plavix. No anticoagulation for now. He remains on Levemir insulin 15 units daily and DuoNeb updrafts on an as-needed basis and Symbicort as maintenance. Blood work from today shows a WBC count of 5.4 with a hemoglobin 7.7 and a platelet count of 212. BUN is 27 with a creatinine of 1.6 and a sodium levels at 136. No specific complaints on today's evaluation. The patient is postop day #9 Objective - Vital Signs Vital signs: Vital Signs Temp 99.1 F 02/24/24 08:00 Pulse 64 02/24/24 11:00 Resp 24 02/24/24 11:00 BP 112/76 02/24/24 11:00 Pulse Ox 95 02/24/24 10:00 FiO2 40 02/16/24 10:06 Intake & Output 02/24/24 02/24/24 02/25/24 06:59 18:59 06:59 Intake Total 500 Output Total 1050 0 Balance -1050 500 Intake: Oral 500 Output: Urine 1050 0 Other: Voiding Method Urinal Urinal # Voids 3 ABP, PAP, CO, CI - Last Documented Arterial Blood Pressure 100/40 Pulmonary Artery Pressure 33/10 Cardiac Output 3.6 Cardiac Index 1.8 - Exam GENERAL EXAM: Awake, pale 78-year-old male, on room air, up in a chair, in no acute distress. HEAD: Normocephalic and atraumatic EYES: Normal reaction of pupils, equal size. NOSE: Clear with pink turbinates. THROAT: No erythema or exudates. NECK: No masses, no JVD. CHEST: Midstern incision dressed with postoperative dressing clean, dry, intact. Pacemaker site dressing clean and dry. LUNGS: Equal air entry with few scattered rhonchi. CVS: S1 and S2 normal with no audible murmur, irregular rhythm. ABDOMEN: No hepatosplenomegaly, active bowel sounds, no guarding or rigidity. SPINE: No scoliosis or deformity SKIN: No rashes CENTRAL NERVOUS SYSTEM: No focal deficits, tone is normal in all 4 extremities. EXTREMITIES: Distal pulses intact. Legs with sequential compression devices. - Labs CBC & Chem 7: 02/24/24 05:22 02/24/24 05:22 Labs: Abnormal Lab Results - Last 24 Hours (Table) 02/23/24 02/24/24 02/24/24 Range/Units 20:51 05:22 05:22 RBC 2.60 L (4.30-5.90) m/uL Hgb 7.7 L (13.0-17.5) gm/dL Hct 24.3 L (39.0-53.0) % RDW 19.3 H (11.5-15.5) % Sodium 136 L (137-145) mmol/L BUN 27 H (9-20) mg/dL Creatinine 1.67 H (0.66-1.25) mg/dL Glucose 132 H (74-99) mg/dL POC Glucose (mg/dL) 219 H (70-110) mg/dL Calcium 8.2 L (8.4-10.2) mg/dL 02/24/24 02/24/24 Range/Units 07:00 11:09 RBC (4.30-5.90) m/uL Hgb (13.0-17.5) gm/dL Hct (39.0-53.0) % RDW (11.5-15.5) % Sodium (137-145) mmol/L BUN (9-20) mg/dL Creatinine (0.66-1.25) mg/dL Glucose (74-99) mg/dL POC Glucose (mg/dL) 180 H 234 H (70-110) mg/dL Calcium (8.4-10.2) mg/dL Assessment and Plan Plan: Postoperative day #8 following coronary artery bypass grafting x 3 with POSADA to LAD, sequential saphenous vein graft to first and second obtuse marginal coronary arteries, mitral valve repair with 28 mm annular flex band, modified Vazquez-Maze with completed left sided lesion set using RF and cryoablation, ligation of left atrial appendage, and percutaneous placement of intra-aortic balloon pump. Balloon pump removed. The patient is currently hemodynamically stable. Having episodes of paroxysmal atrial fibrillation. The patient is on metoprolol and amiodarone. The patient remains on Plavix. The patient is postop day #9. Doing well. No specific complaints. Brief cardiac arrest on 02/19/2024 requiring 1 minute of CPR and resumption of pacing. Permanent pacemaker placed 02/20/2024, and Micra pacemaker inserted on this patient without any complications. Postthoracotomy related to routine mechanical ventilator management and subsequent extubation. Recovered and on room air. The patient has limited infiltration of the lung bases with Enterobacter in the sputum. The patient remains on IV course of Bactrim. Acute hypoxic respiratory failure, recovered and the patient is currently on room air oxygen Atrial fibrillation with a rapid ventricular response, receiving amiodarone, also maintained on beta-blockers with metoprolol 25 mg p.o. twice a day. Acute blood loss anemia, expected outcome of surgery, status post 5 units PRBC, 2 FFP, 2 platelets, 1.5 L albumin, and 1200 mL Cell Saver. Current hemoglobin currently stable above 7 Acute kidney injury, secondary to hypotension and ATN improving Diabetes mellitus type 2, currently on Levemir insulin History of atrial fibrillation, normally anticoagulated on Eliquis, status post synchronized cardioversion on 12/31/2023 History of hypertension Former tobacco smoker History of prostate cancer with previous radiation Plan: The patient will be switched to oral Bactrim to complete a total of 7-day course of antibiotics. Will monitor creatinine and potassium, potassium level is not elevated on today's evaluation Continue Symbicort and DuoNeb up chest [id number] Continue Plavix Continue metoprolol and amiodarone Currently stable and on room air Levemir insulin for blood sugar control Continue the current treatment plan Increase use of the incentive spirometer Increase his activity as tolerated We will continue to follow The patient is going to be discharged to rehabilitation.
--- NOTE | 2024-02-25 13:20 | P.PN ---
Subjective Progress Note Date: 02/24/24 patient is a 78-year-old gentleman with past medical history significant for prostate cancer, diabetes mellitus, hypertension, angina, atrial fibrillation normally anticoagulated on Eliquis, recent cardiac workup showing multivessel coronary disease and severe MR who presented to the hospital for open heart surgery. Patient underwent coronary artery bypass grafting x 3 with POSADA to LAD, sequential saphenous vein graft to first and second obtuse marginal coronary arteries, mitral valve repair with 28 mm annular flex band, modified Vazquez-Maze with completed left sided lesion set using RF and cryoablation, ligation of left atrial appendage, and percutaneous placement of intra-aortic balloon pump. Patient was admitted to ICU. Internal medicine team were consulted for medical management. 02/19--- patient was seen and examined today. Patient underwent placement of pacemaker today by EP. Family at bedside. Patient denies any issues overnight. Pain is controlled. Patient currently on Zosyn, respiratory culture growing Enterobacter. ICU following. 02/20-patient was seen and examined today. No issues overnight. Remained afebrile, heart rate 62, respiratory rate 20, blood pressure on the lower side 102/56. Hemoglobin was low 6.4, recheck 7.0, will continue to monitor. Blood sugar elevated, will increase Levemir to 15 units daily. 02/21--patient was seen and examined today. Sitting up in chair, comfortable. Patient denied any issues overnight. Chest x-ray showing persistent small left Lucier. Patient's hemoglobin 6.8, 1 unit of packed RBCs ordered. 2 units of fresh frozen plasma and 2 units of platelet per cardiac surgery. Patient miryam on IV diuretics. AntibioticsZosyn. Sputum culture positive for Enterobacter cloacae. 02/22--patient was seen and examined today. Sitting up in chair. Denied any issues overnight. Patient feeling better today. On room air. Complains of mild cough and congestion. Chest x-ray today showed lower lobe pulmonary infiltrates and small bilateral pleural effusions. Patient was on Zosyn, switched to Bactrim per pulmonary. Creatinine is down to 1.4 today. Hemoglobin is stable. No leukocytosis. Patient currently on amiodarone for paroxysmal atrial fibrillation and metoprolol. Also receiving IV diuresis with IV Lasix every 8 hours. 02/24/2024 Patient seen in follow-up today scheduled to be [facility] for continued strength and mobility. Patient has been cleared medically by consultations and CT surgery services working on discharge planning. Patient will be [facility] at [facility] by medicine. Patient is afebrile with no reports of chest pain or shortness of breath. Aaron camarillo has been tolerating diet with no reports of nausea or vomiting. Patient is continued on Bactrim and will for a short course on discharge REVIEW OF SYSTEMS: CONSTITUTIONAL: No fever or chills. CARDIOVASCULAR: No chest pain, palpitations or syncope. PULMONARY: Complains of cough, congestion. GASTROINTESTINAL: No nausea, vomiting, diarrhea, abdominal pain. : No Dysuria, urgency, frequency. Extremities: No edema. NEUROLOGICAL: No headaches, no weakness, or numbness PHYSICAL EXAMINATION: GENERAL: The patient is A&O x3, NAD HEENT: EOMI, Sclerae anicteric, Moist Mucous membranes Neck: Supple, Non tender, No JVD PULMONARY: Equal breath souds B/L, No wheezing, No crackles. CARDIOVASCULAR: S1, S2 present. No murmurs, rubs, or gallops. ABDOMEN: Soft, nontender, nondistended, normoactive bowel sounds. No guarding or rebound tenderness. MUSCULOSKELETAL: No edema, No cyanosis. No clubbing. Normal ROM. Intact peripheral pulses. EXTREMITIES: No cyanosis, clubbing, or pedal edema. NEUROLOGICAL: CN 2-12 grossly intact. No FND Skin: No Rash Assessment: CABG x 3 with POSADA to LAD, sequential saphenous vein graft to first and second obtuse marginal coronary arteries, mitral valve repair with 28 mm annular flex band, modified Vazquez-Maze with completed left sided lesion set using RF and cryoablation, ligation of left atrial appendage, and percutaneous placement of intra-aortic balloon pump. Status post pacemaker placement:02/19 Postop vent dependent respiratory failure Multivessel coronary artery disease History of severe mitral valve regurgitation Acute blood loss anemia-- Acute kidney injury PNA: Diabetes mellitus type 2 History of atrial fibrillation History of hypertension Former tobacco smoker History of prostate cancer with previous radiation Plan: Monitor vital signs Monitor labs Continue telemetry monitoring Aggressive bronchopulmonary hygiene Continue monitoring Accu-Cheks before meals and at bedtime and continue current insulin regimen Patient received IV Lasix and will transition to oral Lasix on discharge. Recommend close outpatient follow-up with repeat labs to monitor kidney functions and electrolytes Continue Bactrim per pulmonary, monitor renal function and potassium. Patient is medically stable and has been cleared by consultations for discharge to [facility] for continued PT/OT therapy Thank you kindly for this consultation. Patient also instructed to follow-up with primary care provider on discharge The impression and plan of care has been dictated by Fide Pool, Nurse Practitioner as directed. Dr. Eusebia MD I have performed a history and examination and MDM of this patient, discussed the same with the dictator, and agree with the dictator's assessment and plan as written ,documented as a scribe. Based on total visit time, I have performed more than 50% of the visit. Objective - Vital Signs Vital signs: Vital Signs Temp 99.1 F 02/24/24 08:00 Pulse 66 02/24/24 09:00 Resp 26 H 02/24/24 09:00 BP 111/66 02/24/24 09:00 Pulse Ox 97 02/24/24 09:00 FiO2 40 02/16/24 10:06 Intake & Output 02/23/24 02/24/24 02/24/24 18:59 06:59 18:59 Output Total 875 1050 Balance -875 -1050 Output: Urine 875 1050 Other: Voiding Method Urinal Urinal # Voids 1 3 ABP, PAP, CO, CI - Last Documented Arterial Blood Pressure 100/40 Pulmonary Artery Pressure 33/10 Cardiac Output 3.6 Cardiac Index 1.8 - Labs CBC & Chem 7: 02/24/24 05:22 02/24/24 05:22 Labs: Abnormal Lab Results - Last 24 Hours (Table) 02/23/24 02/23/24 02/23/24 Range/Units 12:09 17:07 20:04 RBC (4.30-5.90) m/uL Hgb (13.0-17.5) gm/dL Hct (39.0-53.0) % RDW (11.5-15.5) % Sodium (137-145) mmol/L BUN (9-20) mg/dL Creatinine (0.66-1.25) mg/dL Glucose (74-99) mg/dL POC Glucose (mg/dL) 183 H 142 H 221 H (70-110) mg/dL Calcium (8.4-10.2) mg/dL 02/23/24 02/24/24 02/24/24 Range/Units 20:51 05:22 05:22 RBC 2.60 L (4.30-5.90) m/uL Hgb 7.7 L (13.0-17.5) gm/dL Hct 24.3 L (39.0-53.0) % RDW 19.3 H (11.5-15.5) % Sodium 136 L (137-145) mmol/L BUN 27 H (9-20) mg/dL Creatinine 1.67 H (0.66-1.25) mg/dL Glucose 132 H (74-99) mg/dL POC Glucose (mg/dL) 219 H (70-110) mg/dL Calcium 8.2 L (8.4-10.2) mg/dL 02/24/24 Range/Units 07:00 RBC (4.30-5.90) m/uL Hgb (13.0-17.5) gm/dL Hct (39.0-53.0) % RDW (11.5-15.5) % Sodium (137-145) mmol/L BUN (9-20) mg/dL Creatinine (0.66-1.25) mg/dL Glucose (74-99) mg/dL POC Glucose (mg/dL) 180 H (70-110) mg/dL Calcium (8.4-10.2) mg/dL
== END 2024-02-24 11:42 | DRG 219 ==
LOC: 2ORMAIN 02-15 05:39 → 2SICU 02-15 14:19
PROVIDERS: ADMIT Thoracic Surgery (Cardiothoracic Vascular Surgery); ATTEND Thoracic Surgery (Cardiothoracic Vascular Surgery)
PROC: 5A02210 Assistance with Cardiac Output using Balloon Pump, Continuous (ICD-10-PCS; principal; 2024-02-15 08:00)
PROC: 021109W Bypass Coronary Artery, Two Arteries from Aorta with Autologous Venous Tissue, Open Approach (ICD-10-PCS; principal; 2024-02-15 08:00)
PROC: 02L70ZK Occlusion of Left Atrial Appendage, Open Approach (ICD-10-PCS; principal; 2024-02-15 08:00)
PROC: 5A1221Z Performance of Cardiac Output, Continuous (ICD-10-PCS; principal; 2024-02-15 08:00)
PROC: 02583ZZ Destruction of Conduction Mechanism, Percutaneous Approach (ICD-10-PCS; principal; 2024-02-15 08:00)
PROC: 5A12012 Performance of Cardiac Output, Single, Manual (ICD-10-PCS; principal; 2024-02-15 08:00)
PROC: 02100Z9 Bypass Coronary Artery, One Artery from Left Internal Mammary, Open Approach (ICD-10-PCS; principal; 2024-02-15 08:00)
PROC: 06BQ4ZZ Excision of Left Saphenous Vein, Percutaneous Endoscopic Approach (ICD-10-PCS; principal; 2024-02-15 08:00)
PROC: 02HV33Z Insertion of Infusion Device into Superior Vena Cava, Percutaneous Approach (ICD-10-PCS; principal; 2024-02-15 08:00)
PROC: B24BZZ4 Ultrasonography of Heart with Aorta, Transesophageal (ICD-10-PCS; principal; 2024-02-15 08:00)
PROC: 02UG0JZ Supplement Mitral Valve with Synthetic Substitute, Open Approach (ICD-10-PCS; principal; 2024-02-15 08:00)
DX: I34.0 Nonrheumatic mitral (valve) insufficiency (principal); I46.9 Cardiac arrest, cause unspecified; I50.43 Acute on chronic combined systolic (congestive) and diastolic (congestive) heart failure; N17.0 Acute kidney failure with tubular necrosis; J95.821 Acute postprocedural respiratory failure; D62 Acute posthemorrhagic anemia; I13.0 Hypertensive heart and chronic kidney disease with heart failure and stage 1 through stage 4 chronic kidney disease, or unspecified chronic kidney disease; I48.19 Other persistent atrial fibrillation; I42.9 Cardiomyopathy, unspecified; E87.20 Acidosis, unspecified; I44.2 Atrioventricular block, complete; Z99.11 Dependence on respirator [ventilator] status; I49.5 Sick sinus syndrome; I25.10 Atherosclerotic heart disease of native coronary artery without angina pectoris; N18.32 Chronic kidney disease, stage 3b; E11.22 Type 2 diabetes mellitus with diabetic chronic kidney disease; D63.1 Anemia in chronic kidney disease; E66.9 Obesity, unspecified; Z68.31 Body mass index [BMI] 31.0-31.9, adult; E11.65 Type 2 diabetes mellitus with hyperglycemia; G47.33 Obstructive sleep apnea (adult) (pediatric); I25.2 Old myocardial infarction; Z79.01 Long term (current) use of anticoagulants; Z79.02 Long term (current) use of antithrombotics/antiplatelets; Z79.4 Long term (current) use of insulin; Z79.82 Long term (current) use of aspirin; Z79.84 Long term (current) use of oral hypoglycemic drugs; Z79.899 Other long term (current) drug therapy; Z82.49 Family history of ischemic heart disease and other diseases of the circulatory system; Z85.46 Personal history of malignant neoplasm of prostate; Z87.891 Personal history of nicotine dependence; Z88.0 Allergy status to penicillin; Z91.199 Patient's noncompliance with other medical treatment and regimen due to unspecified reason; Z92.3 Personal history of irradiation; Z95.2 Presence of prosthetic heart valve; Z96.643 Presence of artificial hip joint, bilateral
CPT/HCPCS: 33274; 36430; 71045; 71046; 80048; 80053; 82330; 82728; 82805; 83036; 83540; 83550; 83735; 84134; 85025; 85027; 85384; 85610; 85730; 86850; 86891; 86900; 86901; 86920; 87070; 87077; 87186; 87205; 93308; 94002; 94003; 94640; 94667; 94668; 94760

== ENCOUNTER → 2024-02-12 | Outpatient (CLI) | payer MEDICARE | END | disposition home or self-care (01) | LOC: LABWHC1 11:44 | DX: Z53.9 Procedure and treatment not carried out, unspecified reason (principal) ==

== ENCOUNTER 2024-03-05 15:05 | Emergency (ER) | payer MEDICARE ==
--- NOTE | 2024-03-05 15:14 | ED ---
SOB HPI - General Chief Complaint: Shortness of Breath Stated Complaint: SOB, abd drainage Time Seen by Provider: 03/05/24 15:13 Source: patient, RN notes reviewed, old records reviewed Mode of arrival: wheelchair Limitations: no limitations - History of Present Illness Initial Comments: This is a 78-year-old male to ER for evaluation patient is presenting to us for evaluation of pleural effusion fluid on the lung CHF concern for increasing shortness of breath patient has not been feeling well does not feel well here in the ER but improved patient MD Complaint: shortness of breath, cough, chest pain -: days(s) Severity: severe Severity scale (1-10): 8 Consistency: constant Improves With: nothing Worsens With: nothing Known History Of: congestive heart failure Context: allergen exposure - Related Data Home Medications Medication Instructions Recorded Confirmed Timolol 0.5% Ophth Soln [Timoptic 1 drop BOTH EYES BID 12/24/23 03/05/24 0.5% Ophth Soln] Acetaminophen Tab [Tylenol] 1,000 mg PO Q6HR PRN 03/05/24 03/05/24 Amiodarone [Cordarone] 200 mg PO Q48H 03/05/24 03/05/24 Apixaban [Eliquis] 2.5 mg PO BID 03/05/24 03/05/24 Aspirin EC [Ecotrin Low Dose] 81 mg PO DAILY 03/05/24 03/05/24 Atorvastatin [Lipitor] 40 mg PO HS 03/05/24 03/05/24 Folic Acid/Vit B Complex and C 0.8 mg PO DAILY 03/05/24 03/05/24 [Lucy-Junie Tablet] Furosemide [Lasix] 20 mg PO DAILY 03/05/24 03/05/24 INSULIN ASPART (NovoLOG) [NovoLOG See Protocol SQ ACHS 03/05/24 03/05/24 (formulary)] Insulin Degludec [Tresiba 13 units SQ HS 03/05/24 03/05/24 Flextouch U-100 Pen] Loratadine [Claritin] 10 mg PO DAILY 03/05/24 03/05/24 Previous Rx's Medication Instructions Recorded Ascorbic Acid [Vitamin C] 500 mg PO BID tab 02/24/24 Clopidogrel [Plavix] 75 mg PO DAILY tab 02/24/24 Ferrous Sulfate [Iron (65 MG 325 mg PO BID tab 02/24/24 Elemental)] INSULIN ASPART (NovoLOG) [NovoLOG 3 unit SQ ACHS each 02/24/24 (formulary)] Magnesium Oxide [Mag-Ox] 400 mg PO BID tab 02/24/24 Metoprolol Tartrate [Lopressor] 25 mg PO BID tab 02/24/24 Potassium Chloride ER [K-Dur 20] 20 meq PO DAILY 30 Days tab 02/24/24 guaiFENesin [Mucinex] 1,200 mg PO Q12HR tab 02/24/24 Allergies Allergy/AdvReac Type Severity Reaction Status Date / Time Penicillins Allergy Unknown Verified 03/08/24 17:38 Childhood Review of Systems ROS Statement: Those systems with pertinent positive or pertinent negative responses have been documented in the HPI. ROS Other: All systems not noted in ROS Statement are negative. 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 laboratory monitor History of Any Multi-Drug Resistant Organisms: None Reported Past Surgical History: Appendectomy, Cardiac Ablation, Coronary Bypass/CABG, Orthopedic Surgery, Orthopedic Surgery Additional Past Surgical History / Comment(s): Right hip replacement, bilateral cataract Past Anesthesia/Blood Transfusion Reactions: No Reported Reaction Past Psychological History: No Psychological Hx Reported Smoking Status: Former smoker - Past Family History Father Family Medical History: Coronary Artery Disease (CAD) Additional Family Medical History / Comment(s): from an aneurysm Mother Family Medical History: Cancer General Exam Limitations: no limitations General appearance: alert, in no apparent distress, anxious Head exam: Present: atraumatic, normocephalic, normal inspection Eye exam: Present: normal appearance, PERRL, EOMI. Absent: scleral icterus, conjunctival injection, periorbital swelling ENT exam: Present: normal exam, mucous membranes moist Neck exam: Present: normal inspection. Absent: tenderness, meningismus, lymphadenopathy Respiratory exam: Present: normal lung sounds bilaterally. Absent: respiratory distress, wheezes, rales, rhonchi, stridor Cardiovascular Exam: Present: regular rate, normal rhythm, normal heart sounds. Absent: systolic murmur, diastolic murmur, rubs, gallop, clicks GI/Abdominal exam: Present: soft, normal bowel sounds. Absent: distended, tenderness, guarding, rebound, rigid Extremities exam: Present: normal inspection, full ROM, normal capillary refill. Absent: tenderness, pedal edema, joint swelling, calf tenderness Back exam: Present: normal inspection Neurological exam: Present: alert, oriented X3, CN II-XII intact Psychiatric exam: Present: normal affect, normal mood Skin exam: Present: warm, dry, intact, normal color. Absent: rash Course Vital Signs 03/05/24 03/05/24 03/05/24 15:08 15:11 16:11 Temperature 97.8 F Pulse Rate 59 L 51 L 53 L Pulse Rate [ Wire Basket Maker ] Respiratory 20 16 20 Rate Blood Pressure 121/64 116/54 O2 Sat by Pulse 99 96 97 Oximetry 03/05/24 03/05/24 03/05/24 16:14 16:18 18:03 Temperature 97.6 F Pulse Rate 50 L Pulse Rate [ 49 L Wire Basket Maker ] Respiratory 18 16 Rate Blood Pressure 116/54 O2 Sat by Pulse 99 Oximetry - Reevaluation(s) Reevaluation #1: 03/05/24 17:20 Medical records reviewed Reevaluation #2: 03/05/24 17:20 Patient symptoms relatively unchanged Reevaluation #3: 03/05/24 17:20 Patient informed of results questions answered Reevaluation #4: Was pt. sent in by a medical professional or institution (, PA, OBIEE CONSULTANT, urgent care, hospital, or fci...) When possible be specific @ -no Did you speak to anyone other than the patient for history (EMS, parent, family, police, friend...)? What history was obtained from this source @ -no Did you review nursing and triage notes (agree or disagree)? Why? @ -agree Are old charts reviewed (outside hosp., previous admission, EMS record, old EKG, old radiological studies, urgent care reports/EKG's, fci records)? Report findings @ -yes Differential Diagnosis (chest pain, altered mental status, abdominal pain women, abdominal pain men, vaginal bleeding, weakness, fever, dyspnea, syncope, headache, dizziness, GI bleed, back pain, seizure, CVA, palpatations, mental h ealth, musculoskeletal)? @ -prior EKG interpreted by me (3pts min.). @ -yes X-rays interpreted by me (1pt min.). @ -yes negative for acute disease CT interpreted by me (1pt min.). @ -no U/S interpreted by me (1pt. min.). @ -no What testing was considered but not performed or refused? (CT, X-rays, U/S, labs)? Why? @ -none What meds were considered but not given or refused? Why? @ -none Did you discuss the management of the patient with other professionals (professionals i.e. DrAkila, PA, OBIEE CONSULTANT, lab, RT, psych nurse, social media senior associate, pharm tech, teacher, chief digital officer, pillowcase cutter)? Give summary @ -no Was smoking cessation discussed for >3mins.? @ -no Was critical care preformed (if so, how long)? @ -no Were there social determinants of health that impacted care today? How? (Homelessness, low income, unemployed, alcoholism, drug addiction, transportation, low edu. Level, literacy, decrease access to med. care, half-way, rehab)? @ -none Was there de-escalation of care discussed even if they declined (Discuss DNR or withdrawal of care, Hospice)? DNR status @ -no What co-morbidities impacted this encounter? (DM, HTN, Smoking, COPD, CAD, Cancer, CVA, ARF, Chemo, Hep., AIDS, mental health diagnosis, sleep apnea, morbid obesity)? @ -none Was patient admitted / discharged? Hospital course, mention meds given and route, prescriptions, significant lab abnormalities, going to OR and other p ertinent info. @ - 78 Male to ER for evaluation of shortness of breath possible effusion patient concerned with difficulty breathing at night especially laying flat. Patient has normal imaging here in the ER x-ray is clean aside from trace pleural effusions no pulmonary edema patient can be discharged home Discharge Undiagnosed new problem with uncertain prognosis? @ -no Drug Therapy requiring intensive monitoring for toxicity (Heparin, Nitro, Insulin, Cardizem)? @ -no Were any procedures done? @ -no Diagnosis/symptom? @ -dyspnea Acute, or Chronic, or Acute on Chronic? @ -Acute Uncomplicated (without systemic symptoms) or Complicated (systemic symptoms)? @ -Complicated Side effects of treatment? @ -no Exacerbation, Progression, or Severe Exacerbation? @ -exacerbation Poses a threat to life or bodily function? How? (Chest pain, [place], [place], pneumonia, PE, COPD, DKA, ARF, appy, cholecystitis, CVA, Diverticulitis, Homicidal, Suicidal, threat to staff... and all critical care pts) @ -yes extremes of age Reevaluation #5: Differential Dyspnea: Coronary syndrome, arrhythmia, tamponade, asthma, COPD, pulmonary embolism, pneumonia, pneumothorax, pulmonary effusion, anaphylaxis, diabetic ketoacidosis, flailed chest, pulmonary contusion, diaphragmatic rupture, anemia, neuromuscular, this is not meant to be an all-inclusive list. - Consultations Consultation #1: Cardiology regarding recent CABG patient they are aware okay for discharge Medical Decision Making - Medical Decision Making 78 Male to ER for evaluation of shortness of breath possible effusion patient concerned with difficulty breathing at night especially laying flat. Patient has normal imaging here in the ER x-ray is clean aside from trace pleural effusions no pulmonary edema patient can be discharged home - Lab Data Result diagrams: 03/05/24 15:41 03/05/24 15:41 Lab Results 03/05/24 03/05/24 03/05/24 Range/Units 15:39 15:41 15:41 WBC 5.4 (3.8-10.6) k/uL RBC 3.28 L (4.30-5.90) m/uL Hgb 9.8 L D (13.0-17.5) gm/dL Hct 32.3 L (39.0-53.0) % MCV 98.5 (80.0-100.0) fL MCH 30.1 (25.0-35.0) pg MCHC 30.5 L (31.0-37.0) g/dL RDW 19.2 H (11.5-15.5) % Plt Count 326 (150-450) k/uL MPV 8.2 Neutrophils % 76 % Lymphocytes % 14 % Monocytes % 6 % Eosinophils % 3 % Basophils % 0 % Neutrophils # 4.1 (1.3-7.7) k/uL Lymphocytes # 0.7 L (1.0-4.8) k/uL Monocytes # 0.3 (0-1.0) k/uL Eosinophils # 0.2 (0-0.7) k/uL Basophils # 0.0 (0-0.2) k/uL Hypochromasia Marked Poikilocytosis Slight Anisocytosis Slight Macrocytosis Moderate PT 12.4 (10.0-12.5) sec INR 1.2 H (<1.2) APTT 26.5 (22.0-30.0) sec Sodium (137-145) mmol/L Potassium (3.5-5.1) mmol/L Chloride (98-107) mmol/L Carbon Dioxide (22-30) mmol/L Anion Gap mmol/L BUN (9-20) mg/dL Creatinine (0.66-1.25) mg/dL Est GFR (CKD-EPI)AfAm (>60 ml/min/1.73 sqM) Est GFR (CKD-EPI)NonAf (>60 ml/min/1.73 sqM) Glucose (74-99) mg/dL POC Glucose (mg/dL) 216 H (70-110) mg/dL POC Glu Securities Counselor ID Familia Villareal Calcium (8.4-10.2) mg/dL Magnesium (1.6-2.3) mg/dL Total Bilirubin (0.2-1.3) mg/dL AST (17-59) U/L ALT (4-49) U/L Alkaline Phosphatase (38-126) U/L Troponin I (0.000-0.034) ng/mL NT-Pro-B Natriuret Pep pg/mL Total Protein (6.3-8.2) g/dL Albumin (3.5-5.0) g/dL 03/05/24 03/05/24 Range/Units 15:41 15:41 WBC (3.8-10.6) k/uL RBC (4.30-5.90) m/uL Hgb (13.0-17.5) gm/dL Hct (39.0-53.0) % MCV (80.0-100.0) fL MCH (25.0-35.0) pg MCHC (31.0-37.0) g/dL RDW (11.5-15.5) % Plt Count (150-450) k/uL MPV Neutrophils % % Lymphocytes % % Monocytes % % Eosinophils % % Basophils % % Neutrophils # (1.3-7.7) k/uL Lymphocytes # (1.0-4.8) k/uL Monocytes # (0-1.0) k/uL Eosinophils # (0-0.7) k/uL Basophils # (0-0.2) k/uL Hypochromasia Poikilocytosis Anisocytosis Macrocytosis PT (10.0-12.5) sec INR (<1.2) APTT (22.0-30.0) sec Sodium 137 (137-145) mmol/L Potassium 5.0 (3.5-5.1) mmol/L Chloride 105 (98-107) mmol/L Carbon Dioxide 22 (22-30) mmol/L Anion Gap 10 mmol/L BUN 21 H (9-20) mg/dL Creatinine 1.47 H (0.66-1.25) mg/dL Est GFR (CKD-EPI)AfAm 51 (>60 ml/min/1.73 sqM) Est GFR (CKD-EPI)NonAf 45 (>60 ml/min/1.73 sqM) Glucose 185 H (74-99) mg/dL POC Glucose (mg/dL) (70-110) mg/dL POC Glu Securities Counselor ID Calcium 8.6 (8.4-10.2) mg/dL Magnesium 2.4 H (1.6-2.3) mg/dL Total Bilirubin 0.9 (0.2-1.3) mg/dL AST 37 (17-59) U/L ALT 24 (4-49) U/L Alkaline Phosphatase 91 (38-126) U/L Troponin I 0.041 H* (0.000-0.034) ng/mL NT-Pro-B Natriuret Pep 4800 pg/mL Total Protein 6.0 L (6.3-8.2) g/dL Albumin 3.5 (3.5-5.0) g/dL - EKG Data -: EKG Interpreted by Me (EKG is paced 56 QRS 121 QTc 496) - Radiology Data Radiology results: report reviewed (X-ray has trace pleural effusions), image reviewed Disposition Clinical Impression: CHF (congestive heart failure), Status post aorto-coronary artery bypass graft Disposition: HOME SELF-CARE Condition: Good Is patient prescribed a controlled substance at d/c from ED?: No Referrals: Ton Nash DO [Primary Care Provider] - 1-2 days Time of Disposition: 17:20
[2024-03-05 15:41] LABS: Glucose,Whole Blood 216 mg/dL (70-110)
--- NOTE | 2024-03-05 16:12 | XR ---
EXAMINATION TYPE: XR chest 1V portable DATE OF EXAM: 03/05/2024 Comparison: 02/24/2024 Clinical History: 78-year-old male sob Findings: Median sternotomy wires and post-CABG clips. Loop recorder device projecting over the left side of th e heart. Heart mildly enlarged. The interstitial appears slightly improved. Blunting of the costophre cornelio angle suggests trace pleural effusions. Impression: Mild cardiomegaly. Interstitium appears to have improved from 02/24/2024. Trace pleural effusions ángel aviles [facility] 03/05/2024 4:06 PM [facility], Workstation [id number], 03/05/2024 4:10 PM
[2024-03-05 16:15] VITALS: BP 116/54
[2024-03-05 16:22] LABS: Anisocytosis Slight; Basophils % (A) 0 %; Eosinophils # (A) 0.2 k/uL (0-0.7); Eosinophils % (A) 3 %; HCT 32.3 % (39.0-53.0); Hypochromasia Marked; Lymphocytes # (A) 0.7 k/uL (1.0-4.8); Lymphocytes % (A) 14 %; MCH 30.1 pg (25.0-35.0); MCHC 30.5 g/dL (31.0-37.0); MCV 98.5 fL (80.0-100.0); Macrocytosis Moderate; Mean Platelet Volume 8.2; Monocytes # (A) 0.3 k/uL (0-1.0); Monocytes % (A) 6 %; Neutrophils # (A) 4.1 k/uL (1.3-7.7); Neutrophils % (A) 76 %; Platelet Count 326 k/uL (150-450); Poikilocytosis Slight; RBC 3.28 m/uL (4.30-5.90); RDW 19.2 % (11.5-15.5); WBC 5.4 k/uL (3.8-10.6)
[2024-03-05 16:24] LABS: ALT 24 U/L (4-49); AST 37 U/L (17-59); African American GFR (CKD) 51 (>60 ml/min/1.73 sqM); Albumin 3.5 g/dL (3.5-5.0); Alkaline Phosphatase 91 U/L (38-126); Anion Gap 10 mmol/L; Blood Urea Nitrogen 21 mg/dL (9-20); Calcium 8.6 mg/dL (8.4-10.2); Carbon Dioxide 22 mmol/L (22-30); Chloride 105 mmol/L (98-107); Glucose 185 mg/dL (74-99); Magnesium 2.4 mg/dL (1.6-2.3); Non-African American GFR(CKD) 45 (>60 ml/min/1.73 sqM); Sodium 137 mmol/L (137-145); Total Bilirubin 0.9 mg/dL (0.2-1.3)
[2024-03-05 16:25] LABS: HGB 9.8 gm/dL (13.0-17.5)
[2024-03-05 16:31] LABS: NT-Pro-B-Type Natriuretic Pept 4800 pg/mL
[2024-03-05 16:33] LABS: INR 1.2 (<1.2); Partial Thromboplastin Time 26.5 sec (22.0-30.0); Prothrombin Time 12.4 sec (10.0-12.5)
[2024-03-05] MEDS: FUROSEMIDE 10 MG/ML 4 ML VIAL IV STA (17:45)
[2024-03-05 18:04] VITALS: PULSE 50; RESP 16; TEMP 97.6
== END 2024-03-05 18:04 | disposition home or self-care (01) ==
LOC: EC 15:05
CPT/HCPCS: 36415; 71045; 80053; 83735; 83880; 84484; 85025; 85610; 85730; 93005; 96374; 99284

== ENCOUNTER 2024-03-08 17:27 | Emergency (ER) | payer MEDICARE ==
[2024-03-08 17:38] VITALS: RESP 18
--- NOTE | 2024-03-08 18:30 | XR ---
EXAMINATION TYPE: XR chest 2V DATE OF EXAM: 03/08/2024 COMPARISON: 03/05/2024 INDICATION: Cough TECHNIQUE: Frontal and lateral views of the chest are obtained. FINDINGS: The heart size is prominent. The pulmonary vasculature is normal. The lungs are clear. Postsurgical changes from prior CABG are evident. Corders over the left chest. IMPRESSION: 1. Cardiomegaly. 2. No acute pulmonary process. [facility], , 03/08/2024 6:28 PM
--- NOTE | 2024-03-08 18:32 | ED ---
General Adult HPI - General Chief complaint: Recheck/Abnormal Lab/Rx Stated complaint: post op comp Time Seen by Provider: 03/08/24 17:41 Source: patient, RN notes reviewed, old records reviewed Mode of arrival: ambulatory Limitations: no limitations - History of Present Illness Initial comments: 78 yo male presenting with drainage from left upper quadrant chest tube site from open heart surgery several weeks ago. Patient denies fever. States that the drainage is clear. Patient states he has follow-up with his cardiothoracic surgeon in approximately 9 days. He does have a persistent cough since the surgery as well as mild dyspnea. - Related Data Home Medications Medication Instructions Recorded Confirmed Timolol 0.5% Ophth Soln [Timoptic 1 drop BOTH EYES BID 12/24/23 03/05/24 0.5% Ophth Soln] Acetaminophen Tab [Tylenol] 1,000 mg PO Q6HR PRN 03/05/24 03/05/24 Amiodarone [Cordarone] 200 mg PO Q48H 03/05/24 03/05/24 Apixaban [Eliquis] 2.5 mg PO BID 03/05/24 03/05/24 Aspirin EC [Ecotrin Low Dose] 81 mg PO DAILY 03/05/24 03/05/24 Atorvastatin [Lipitor] 40 mg PO HS 03/05/24 03/05/24 Folic Acid/Vit B Complex and C 0.8 mg PO DAILY 03/05/24 03/05/24 [Lucy-Junie Tablet] Furosemide [Lasix] 20 mg PO DAILY 03/05/24 03/05/24 INSULIN ASPART (NovoLOG) [NovoLOG See Protocol SQ ACHS 03/05/24 03/05/24 (formulary)] Insulin Degludec [Tresiba 13 units SQ HS 03/05/24 03/05/24 Flextouch U-100 Pen] Loratadine [Claritin] 10 mg PO DAILY 03/05/24 03/05/24 Previous Rx's Medication Instructions Recorded Ascorbic Acid [Vitamin C] 500 mg PO BID tab 02/24/24 Clopidogrel [Plavix] 75 mg PO DAILY tab 02/24/24 Ferrous Sulfate [Iron (65 MG 325 mg PO BID tab 02/24/24 Elemental)] INSULIN ASPART (NovoLOG) [NovoLOG 3 unit SQ ACHS each 02/24/24 (formulary)] Magnesium Oxide [Mag-Ox] 400 mg PO BID tab 02/24/24 Metoprolol Tartrate [Lopressor] 25 mg PO BID tab 02/24/24 Potassium Chloride ER [K-Dur 20] 20 meq PO DAILY 30 Days tab 02/24/24 guaiFENesin [Mucinex] 1,200 mg PO Q12HR tab 02/24/24 Allergies Allergy/AdvReac Type Severity Reaction Status Date / Time Penicillins Allergy Unknown Verified 03/08/24 17:38 Childhood Review of Systems ROS Statement: Those systems with pertinent positive or pertinent negative responses have been documented in the HPI. ROS Other: All systems not noted in ROS Statement are negative. 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 cardiac cath lab technologist History of Any Multi-Drug Resistant Organisms: None Reported Past Surgical History: Appendectomy, Cardiac Ablation, Coronary Bypass/CABG, Orthopedic Surgery, Orthopedic Surgery Additional Past Surgical History / Comment(s): Right hip replacement, bilateral cataract Past Anesthesia/Blood Transfusion Reactions: No Reported Reaction Past Psychological History: No Psychological Hx Reported Smoking Status: Former smoker Past Alcohol Use History: None Reported Past Drug Use History: None Reported - Past Family History Father Family Medical History: Coronary Artery Disease (CAD) Additional Family Medical History / Comment(s): from an aneurysm Mother Family Medical History: Cancer General Exam Limitations: no limitations General appearance: alert, in no apparent distress Head exam: Present: atraumatic, normocephalic Eye exam: Present: normal appearance, PERRL ENT exam: Present: normal exam Neck exam: Present: normal inspection. Absent: tenderness, meningismus Respiratory exam: Present: normal lung sounds bilaterally. Absent: respiratory distress, wheezes Cardiovascular Exam: Present: normal rhythm, bradycardia GI/Abdominal exam: Present: other (Clear drainage from left upper quadrant chest tube incision) Extremities exam: Present: pedal edema Neurological exam: Present: alert, oriented X3, CN II-XII intact. Absent: motor sensory deficit Skin exam: Present: warm, dry, other (Mild erythema surrounding incision site left upper quadrant no induration, no purulence) Course Vital Signs 03/08/24 17:34 Temperature 97.7 F Pulse Rate 50 L Respiratory 18 Rate Blood Pressure 117/84 O2 Sat by Pulse 100 Oximetry Medical Decision Making - Medical Decision Making Was pt. sent in by a medical professional or institution (IRASEMA Macdonald, OXYGEN FURNACE OPERATOR, urgent care, hospital, or assisted...) When possible be specific @ -No Did you speak to anyone other than the patient for history (EMS, parent, family, police, friend...)? What history was obtained from this source @ -No Did you review nursing and triage notes (agree or disagree)? Why? @ -I reviewed and agree with nursing and triage notes Were old charts reviewed (outside hosp., previous admission, EMS record, old EKG, old radiological studies, urgent care reports/EKG's, assisted records)? Report findings @ -No old charts were reviewed Differential Diagnosis infection, postsurgical drainage, congestive heart failure EKG interpreted by me (3pts min.). @ -As above X-rays interpreted by me (1pt min.). @Chest x-ray appears stable without sizable effusion, cardiomegaly. CT interpreted by me (1pt min.). @ -None done U/S interpreted by me (1pt. min.). @ -None done What testing was considered but not performed or refused? (CT, X-rays, U/S, labs)? Why? @ -None What meds were considered but not given or refused? Why? @ -None Did you discuss the management of the patient with other professionals (professionals i.e. IRASEMA Macdonald, OXYGEN FURNACE OPERATOR, lab, RT, psych nurse, certified social workers in health care, electric deicer assembler, teacher, complaint evaluation officer, embedded case manager)? Give summary @ -Discussed with Brneda Jacobo covering for cardiothoracic surgery is available to evaluate the patient in the office tomorrow, stable for discharge. Was smoking cessation discussed for >3mins.? @ -No Was critical care preformed (if so, how long)? @ -No Were there social determinants of health that impacted care today? How? (Homelessness, low income, unemployed, alcoholism, drug addiction, transportation, low edu. Level, literacy, decrease access to med. care, long-term, rehab)? @ -No Was there de-escalation of care discussed even if they declined (Discuss DNR or withdrawal of care, Hospice)? DNR status @ -No What co-morbidities impacted this encounter? (DM, HTN, Smoking, COPD, CAD, Cancer, CVA, ARF, Chemo, Hep., AIDS, mental health diagnosis, sleep apnea, morbid obesity)? @ -None Was patient admitted / discharged? Hospital course, mention meds given and route, prescriptions, significant lab abnormalities, going to OR and other pertinent info. @ -[Patient with clear drainage from chest tube site, there does not appear to be infection. Chest x-ray is stable and without change. Patient's vital signs are stable. Patient can follow-up with cardiothoracic surgery tomorrow. Undiagnosed new problem with uncertain prognosis? @ -No Drug Therapy requiring intensive monitoring for toxicity (Heparin, Nitro, Insulin, Cardizem)? @ -No Were any procedures done? @ -No Diagnosis/symptom? @ -[Postop chest tube drainage from open heart surgery Acute, or Chronic, or Acute on Chronic? @ -Acute Uncomplicated (without systemic symptoms) or Complicated (systemic symptoms)? @ -Uncomplicated Side effects of treatment? @ -[No Exacerbation, Progression, or Severe Exacerbation? @ -No Poses a threat to life or bodily function? How? (Chest pain, [place], [place], pneumonia, PE, COPD, DKA, ARF, appy, cholecystitis, CVA, Diverticulitis, Homicidal, Suicidal, threat to staff... and all critical care pts) @ -[Low risk at this time Disposition Clinical Impression: Status post aorto-coronary artery bypass graft Disposition: HOME SELF-CARE Condition: Fair Additional Instructions: Please follow-up with cardiothoracic surgery tomorrow for evaluation, as needed. Is patient prescribed a controlled substance at d/c from ED?: No Referrals: Ton Nash DO [Primary Care Provider] - 1-2 days Hunter Das MD [STAFF PHYSICIAN] - 1-2 days Time of Disposition: 18:33
[2024-03-08 19:18] VITALS: BP 120/78; PULSE 54; TEMP 98
== END 2024-03-08 19:17 | disposition home or self-care (01) ==
LOC: EC 17:27
CPT/HCPCS: 71046; 99283

== ENCOUNTER 2024-04-04 16:44 | Observation (INO) | payer MEDICARE ==
[2024-04-04 18:01] LABS: ALT 18 U/L (4-49); AST 22 U/L (17-59); African American GFR (CKD) 47 (>60 ml/min/1.73 sqM); Albumin 3.9 g/dL (3.5-5.0); Alkaline Phosphatase 81 U/L (38-126); Anion Gap 9 mmol/L; Blood Urea Nitrogen 24 mg/dL (9-20); Calcium 9.1 mg/dL (8.4-10.2); Carbon Dioxide 26 mmol/L (22-30); Chloride 104 mmol/L (98-107); Glucose 139 mg/dL (74-99); Non-African American GFR(CKD) 41 (>60 ml/min/1.73 sqM); Potassium 4.6 mmol/L (3.5-5.1); Sodium 139 mmol/L (137-145); Total Bilirubin 1.3 mg/dL (0.2-1.3); Total Protein 6.4 g/dL (6.3-8.2)
[2024-04-04 18:09] LABS: NT-Pro-B-Type Natriuretic Pept 8060 pg/mL
[2024-04-04 18:12] LABS: INR 1.1 (<1.2); Prothrombin Time 12.2 sec (10.0-12.5)
[2024-04-04 18:22] LABS: Basophils % (A) 0 %; Eosinophils # (A) 0.1 k/uL (0-0.7); Eosinophils % (A) 1 %; HCT 37.1 % (39.0-53.0); HGB 12.4 gm/dL (13.0-17.5); Lymphocytes # (A) 0.7 k/uL (1.0-4.8); Lymphocytes % (A) 8 %; MCH 30.8 pg (25.0-35.0); MCHC 33.3 g/dL (31.0-37.0); MCV 92.5 fL (80.0-100.0); Mean Platelet Volume 8.3; Monocytes # (A) 0.4 k/uL (0-1.0); Monocytes % (A) 4 %; Neutrophils # (A) 7.8 k/uL (1.3-7.7); Neutrophils % (A) 86 %; Platelet Count 208 k/uL (150-450); RBC 4.01 m/uL (4.30-5.90); RDW 15.8 % (11.5-15.5); WBC 9.1 k/uL (3.8-10.6)
--- NOTE | 2024-04-04 21:16 | ED ---
SOB HPI - General Chief Complaint: Shortness of Breath Stated Complaint: SOB Time Seen by Provider: 04/04/24 17:00 Source: patient, family Mode of arrival: wheelchair Limitations: no limitations - History of Present Illness Initial Comments: 78-year-old male with past medical history of coronary artery disease, CHF status post CABG who presents to the emergency department reporting shortness of breath with exertion and orthopnea. States that his symptoms started yesterday. He was unable to lay flat to sleep. He reports increased welling in his legs. According to his medical record he takes 20 mg of Lasix daily. Patient does not wear any oxygen at home. He denies any chest pain. No fevers. Does admit to cough with frothy sputum production. No other alleviating, precipitating modifying factors - Related Data Home Medications Medication Instructions Recorded Confirmed Timolol 0.5% Ophth Soln [Timoptic 1 drop BOTH EYES BID 12/24/23 04/05/24 0.5% Ophth Soln] Acetaminophen Tab [Tylenol] 1,000 mg PO Q6HR PRN 03/05/24 04/05/24 Amiodarone [Cordarone] 200 mg PO Q48H 03/05/24 04/05/24 Apixaban [Eliquis] 2.5 mg PO BID 03/05/24 04/05/24 Atorvastatin [Lipitor] 40 mg PO HS 03/05/24 04/05/24 INSULIN ASPART (NovoLOG) [NovoLOG See Protocol SQ ACHS 03/05/24 04/05/24 (formulary)] Insulin Degludec [Tresiba 13 units SQ HS 03/05/24 04/05/24 Flextouch U-100 Pen] Loratadine [Claritin] 10 mg PO DAILY 03/05/24 04/05/24 Dapagliflozin Propanediol [Farxiga] 10 mg PO DAILY 04/05/24 04/05/24 INSULIN ASPART (NovoLOG) [NovoLOG 5 unit SQ ACHS 04/05/24 04/05/24 (formulary)] Multivitamins, Thera [Multivitamin 1 tab PO DAILY 04/05/24 04/05/24 (formulary)] Previous Rx's Medication Instructions Recorded Clopidogrel [Plavix] 75 mg PO DAILY tab 02/24/24 Ferrous Sulfate [Iron (65 MG 325 mg PO BID tab 02/24/24 Elemental)] Metoprolol Tartrate [Lopressor] 25 mg PO BID tab 02/24/24 guaiFENesin [Mucinex] 1,200 mg PO Q12HR tab 02/24/24 Furosemide [Lasix] 40 mg PO DAILY #30 tab 04/06/24 Allergies Allergy/AdvReac Type Severity Reaction Status Date / Time Penicillins Allergy Unknown Verified 04/05/24 08:07 Childhood Review of Systems ROS Statement: Those systems with pertinent positive or pertinent negative responses have been documented in the HPI. ROS Other: All systems not noted in ROS Statement are negative. 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 History of Any Multi-Drug Resistant Organisms: None Reported Past Surgical History: Appendectomy, Cardiac Ablation, Coronary Bypass/CABG, Orthopedic Surgery, Orthopedic Surgery Additional Past Surgical History / Comment(s): Right hip replacement, bilateral cataract Past Anesthesia/Blood Transfusion Reactions: No Reported Reaction Past Psychological History: No Psychological Hx Reported Smoking Status: Former smoker Past Alcohol Use History: None Reported Past Drug Use History: None Reported - Past Family History Father Family Medical History: Coronary Artery Disease (CAD) Additional Family Medical History / Comment(s): from an aneurysm Mother Family Medical History: Cancer General Exam Limitations: no limitations General appearance: alert, in no apparent distress Head exam: Present: atraumatic, normocephalic, normal inspection Eye exam: Present: normal appearance, PERRL, EOMI. Absent: scleral icterus, conjunctival injection, periorbital swelling ENT exam: Present: normal exam, mucous membranes moist Neck exam: Present: normal inspection. Absent: tenderness, meningismus, lymphadenopathy Respiratory exam: Present: normal lung sounds bilaterally. Absent: respiratory distress, wheezes, rales, rhonchi, stridor Cardiovascular Exam: Present: regular rate, normal rhythm, normal heart sounds. Absent: systolic murmur, diastolic murmur, rubs, gallop, clicks GI/Abdominal exam: Present: soft, normal bowel sounds. Absent: distended, tenderness, guarding, rebound, rigid Extremities exam: Present: full ROM, normal capillary refill, pedal edema. Absent: tenderness, joint swelling, calf tenderness Back exam: Present: normal inspection Neurological exam: Present: alert, oriented X3, CN II-XII intact Psychiatric exam: Present: normal affect, normal mood Skin exam: Present: warm, dry, intact, normal color. Absent: rash Course Vital Signs 04/04/24 04/04/24 04/04/24 16:57 17:57 21:02 Temperature 98.1 F Pulse Rate 52 L 62 Pulse Rate [ Pulse Oximetery ] Respiratory 20 18 19 Rate Blood Pressure 104/59 149/83 Blood Pressure [Left Arm] O2 Sat by Pulse 94 L 93 L Oximetry 04/05/24 04/05/24 04/05/24 01:19 06:00 07:24 Temperature Pulse Rate 77 58 L 57 L Pulse Rate [ Pulse Oximetery ] Respiratory 17 17 18 Rate Blood Pressure 120/67 123/62 136/60 Blood Pressure [Left Arm] O2 Sat by Pulse 97 96 94 L Oximetry 04/05/24 04/05/24 04/05/24 10:29 15:54 16:15 Temperature 98.3 F Pulse Rate 75 64 Pulse Rate [ 68 Pulse Oximetery ] Respiratory 16 18 17 Rate Blood Pressure 127/96 119/63 Blood Pressure 115/71 [Left Arm] O2 Sat by Pulse 97 97 94 L Oximetry Medical Decision Making - Medical Decision Making Was pt. sent in by a medical professional or institution ([facility], [facility], urgent care, hospital, or prison...) When possible be specific @ -No Did you speak to anyone other than the patient for history (EMS, parent, family, police, friend...)? What history was obtained from this source @ -Spoke with for history Did you review nursing and triage notes (agree or disagree)? Why? @ -I reviewed and agree with nursing and triage notes Were old charts reviewed (outside hosp., previous admission, EMS record, old EKG, old radiological studies, urgent care reports/EKG's, prison records)? Report findings @ -I reviewed patient's procedure note from January Differential Diagnosis (chest pain, altered mental status, abdominal pain women, abdominal pain men, vaginal bleeding, weakness, fever, dyspnea, syncope, headache, dizziness, GI bleed, back pain, seizure, CVA, palpatations, mental health, musculoskeletal)? @ -Differential Dyspnea: Coronary syndrome, arrhythmia, tamponade, asthma, COPD, pulmonary embolism, pneumonia, pneumothorax, pulmonary effusion, anaphylaxis, diabetic ketoacidosis, flailed chest, pulmonary contusion, diaphragmatic rupture, anemia, neuromuscular, this is not meant to be an all-inclusive list. EKG interpreted by me (3pts min.). @ -Yes and demonstrates electronic ventricular pacemaker with a rate of 55. OK interval 180. QRS 165. QTc of 473. No acute ST segment elevations or depressions. Pacemaker captures appropriately X-rays interpreted by me (1pt min.). @ -Yes and demonstrates pulmonary vascular congestion CT interpreted by me (1pt min.). @ -None done U/S interpreted by me (1pt. min.). @ -None done What testing was considered but not performed or refused? (CT, X-rays, U/S, l abs)? Why? @ -None What meds were considered but not given or refused? Why? @ -None Did you discuss the management of the patient with other professionals (professionals i.e. , PA, [facility], lab, RT, psych nurse, nephrology social worker, game technician, teacher, staff combat information center officer, outsole caser)? Give summary @ -Spoke with Wan from [facility] for admission Was smoking cessation discussed for >3mins.? @ -No Was critical care preformed (if so, how long)? @ -No Were there social determinants of health that impacted care today? How? (Homelessness, low income, unemployed, alcoholism, drug addiction, transportation, low edu. Level, literacy, decrease access to med. care, penitentiary, rehab)? @ -No Was there de-escalation of care discussed even if they declined (Discuss DNR or withdrawal of care, Hospice)? DNR status @ -No What co-morbidities impacted this encounter? (DM, HTN, Smoking, COPD, CAD, Cancer, CVA, ARF, Chemo, Hep., AIDS, mental health diagnosis, sleep apnea, morbid obesity)? @ -Coronary artery disease status post CABG Was patient admitted / discharged? Hospital course, mention meds given and route, prescriptions, significant lab abnormalities, going to OR and other pertinent info. @ -Upon arrival patient seen and evaluated in room 23. Thorough history and physical exam was performed. IV access was established. Laboratory studies are conducted. Chest x-ray is performed. Patient's exam is concerning for congestive heart failure exacerbation. Patient recently had CABG in January. At this time I did recommend admission for diuresis. Patient was agreeable to this. Spoke with Wan from [facility] for admission Undiagnosed new problem with uncertain prognosis? @ -No Drug Therapy requiring intensive monitoring for toxicity (Heparin, Nitro, Insulin, Cardizem)? @ -No Were any procedures done? @ -No Diagnosis/symptom? @ -Acute respiratory insufficiency, acute exacerbation of congestive heart jad lure, recent CABG Acute, or Chronic, or Acute on Chronic? @ -Acute on chronic Uncomplicated (without systemic symptoms) or Complicated (systemic symptoms)? @ -Complicated Side effects of treatment? @ -No Exacerbation, Progression, or Severe Exacerbation? @ -No Poses a threat to life or bodily function? How? (Chest pain, USA, NM, pneumonia, PE, COPD, DKA, ARF, appy, cholecystitis, CVA, Diverticulitis, Homicidal, Suicidal, threat to staff... and all critical care pts) @ -No - Lab Data Result diagrams: 04/06/24 03:52 04/06/24 03:52 Lab Results 04/04/24 04/04/24 04/04/24 Range/Units 17:35 17:35 17:35 WBC 9.1 (3.8-10.6) k/uL RBC 4.01 L (4.30-5.90) m/uL Hgb 12.4 L (13.0-17.5) gm/dL Hct 37.1 L (39.0-53.0) % MCV 92.5 D (80.0-100.0) fL MCH 30.8 (25.0-35.0) pg MCHC 33.3 (31.0-37.0) g/dL RDW 15.8 H (11.5-15.5) % Plt Count 208 (150-450) k/uL MPV 8.3 Neutrophils % 86 % Lymphocytes % 8 % Monocytes % 4 % Eosinophils % 1 % Basophils % 0 % Neutrophils # 7.8 H (1.3-7.7) k/uL Lymphocytes # 0.7 L (1.0-4.8) k/uL Monocytes # 0.4 (0-1.0) k/uL Eosinophils # 0.1 (0-0.7) k/uL Basophils # 0.0 (0-0.2) k/uL PT 12.2 (10.0-12.5) sec INR 1.1 (<1.2) APTT 28.0 (22.0-30.0) sec Sodium 139 (137-145) mmol/L Potassium 4.6 (3.5-5.1) mmol/L Chloride 104 (98-107) mmol/L Carbon Dioxide 26 (22-30) mmol/L Anion Gap 9 mmol/L BUN 24 H (9-20) mg/dL Creatinine 1.59 H (0.66-1.25) mg/dL Est GFR (CKD-EPI)AfAm 47 (>60 ml/min/1.73 sqM) Est GFR (CKD-EPI)NonAf 41 (>60 ml/min/1.73 sqM) Glucose 139 H (74-99) mg/dL Calcium 9.1 (8.4-10.2) mg/dL Magnesium 2.0 (1.6-2.3) mg/dL Total Bilirubin 1.3 (0.2-1.3) mg/dL AST 22 (17-59) U/L ALT 18 (4-49) U/L Alkaline Phosphatase 81 (38-126) U/L Troponin I (0.000-0.034) ng/mL NT-Pro-B Natriuret Pep 8060 pg/mL Total Protein 6.4 (6.3-8.2) g/dL Albumin 3.9 (3.5-5.0) g/dL 04/04/24 Range/Units 17:35 WBC (3.8-10.6) k/uL RBC (4.30-5.90) m/uL Hgb (13.0-17.5) gm/dL Hct (39.0-53.0) % MCV (80.0-100.0) fL MCH (25.0-35.0) pg MCHC (31.0-37.0) g/dL RDW (11.5-15.5) % Plt Count (150-450) k/uL MPV Neutrophils % % Lymphocytes % % Monocytes % % Eosinophils % % Basophils % % Neutrophils # (1.3-7.7) k/uL Lymphocytes # (1.0-4.8) k/uL Monocytes # (0-1.0) k/uL Eosinophils # (0-0.7) k/uL Basophils # (0-0.2) k/uL PT (10.0-12.5) sec INR (<1.2) APTT (22.0-30.0) sec Sodium (137-145) mmol/L Potassium (3.5-5.1) mmol/L Chloride (98-107) mmol/L Carbon Dioxide (22-30) mmol/L Anion Gap mmol/L BUN (9-20) mg/dL Creatinine (0.66-1.25) mg/dL Est GFR (CKD-EPI)AfAm (>60 ml/min/1.73 sqM) Est GFR (CKD-EPI)NonAf (>60 ml/min/1.73 sqM) Glucose (74-99) mg/dL Calcium (8.4-10.2) mg/dL Magnesium (1.6-2.3) mg/dL Total Bilirubin (0.2-1.3) mg/dL AST (17-59) U/L ALT (4-49) U/L Alkaline Phosphatase (38-126) U/L Troponin I 0.012 (0.000-0.034) ng/mL NT-Pro-B Natriuret Pep pg/mL Total Protein (6.3-8.2) g/dL Albumin (3.5-5.0) g/dL Disposition Clinical Impression: CHF (congestive heart failure), Acute respiratory insufficiency Disposition: ADMITTED IP TO THIS [facility] Condition: Stable Is patient prescribed a controlled substance at d/c from ED?: No Time of Disposition: 21:34 Decision to Admit Reason: Admit from EC Decision Date: 04/04/24 Decision Time: :34
[2024-04-04] MEDS ORDERED: NALOXONE 0.4 MG/ML 1 ML VIAL IV PRN (21:34)
[2024-04-04] MEDS: FUROSEMIDE 10 MG/ML 4 ML VIAL IV STA (21:39)
--- NOTE | 2024-04-04 23:59 | XR ---
EXAMINATION TYPE: XR chest 2V DATE OF EXAM: 04/04/2024 6:16 PM CLINICAL INDICATION:Male, 78 years old with history of Chest Pain; [facility] COMPARISON: 03/22/2024 TECHNIQUE: XR chest 2V. Frontal and lateral views of the chest.. FINDINGS: Lines/Tubes/Devices: No indwelling lines are seen. Sternotomy wires. Small electronic device over the left heart. Heart/mediastinum: Heart size upper normal. Stable mediastinum. Mild calcification and tortuosity of the aorta. Pulmonary vascularity: Mild central vascular congestion. Lungs/Pleura: Mild left basilar opacity with mild blunting of the left costophrenic angle. No visuali zed pneumothorax. Musculoskeletal: No acute osseous abnormality demonstrated in the limits of the exam. Other findings: None. IMPRESSION: 1. Cardiomegaly with postoperative changes and mild central vascular congestion. 2. Mild left basilar infiltrate or atelectasis, with small left pleural effusion. [facility], , 04/04/2024 11:56 PM
[2024-04-05 04:35] LABS: Basophils % (A) 0 %; Eosinophils # (A) 0.1 k/uL (0-0.7); Eosinophils % (A) 1 %; HCT 34.7 % (39.0-53.0); HGB 11.5 gm/dL (13.0-17.5); Lymphocytes # (A) 1.1 k/uL (1.0-4.8); Lymphocytes % (A) 14 %; MCH 30.6 pg (25.0-35.0); MCHC 33.1 g/dL (31.0-37.0); MCV 92.4 fL (80.0-100.0); Mean Platelet Volume 7.5; Monocytes # (A) 0.5 k/uL (0-1.0); Monocytes % (A) 6 %; Neutrophils # (A) 5.8 k/uL (1.3-7.7); Neutrophils % (A) 77 %; Platelet Count 196 k/uL (150-450); RBC 3.75 m/uL (4.30-5.90); RDW 15.6 % (11.5-15.5); WBC 7.6 k/uL (3.8-10.6)
[2024-04-05 05:04] LABS: African American GFR (CKD) 53 (>60 ml/min/1.73 sqM); Anion Gap 10 mmol/L; Blood Urea Nitrogen 26 mg/dL (9-20); Calcium 8.9 mg/dL (8.4-10.2); Carbon Dioxide 26 mmol/L (22-30); Chloride 104 mmol/L (98-107); Glucose 135 mg/dL (74-99); Non-African American GFR(CKD) 46 (>60 ml/min/1.73 sqM); Sodium 140 mmol/L (137-145)
--- NOTE | 2024-04-05 07:29 | P.HPIM ---
History of Present Illness This is a pleasant 78 years old male. He is a patient of Dr. 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 Pelletier. He has history of heart failure with low ejection fraction of 25 to 30% and presents today with worsening shortness of breath at r est and exertion for the last 2 days He has chronic cough and white phlegm but he denies chest pain No other GI urinary symptom. No headache dizziness weakness numbness No smoking or illicit drugs, no alcohol Is hemodynamically stable, afebrile, labs unremarkable except for mildly low hemoglobin at 11.5 and creatinine at baseline of 1.4 with baseline 1.4-1.8. Troponin x 3 are negative. proBNP is elevated 8060. EKG showing sinus rhythm at [address]-T changes but ventricular paced rhythm Chest x-ray showing cardiomegaly with pulmonary vascular congestion suspicious for CHF with small left pleural effusion and atelectasis Ejection fraction from 12/2023 is 25 to 30% with severe global hypokinesia Review of Systems Review of systems CONSTITUTIONAL: No fever, no malaise, no fatigue. HEENT: No recent visual problems or hearing problems. Denied any sore throat. CARDIOVASCULAR: No orthopnea, PND, no palpitations, no syncope. PULMONARY: No chest wall tenderness, no hemoptysis. GASTROINTESTINAL: No diarrhea, no nausea, no vomiting, no abdominal pain. Normoactive bowel sounds. NEUROLOGICAL: No headaches, no weakness, no numbness. HEMATOLOGICAL: Denies any bleeding or petechiae. GENITOURINARY: Denies any burning micturition, frequency, or urgency. MUSCULOSKELETAL/RHEUMATOLOGICAL: Denies any joint pain, swelling, or any muscle pain. ENDOCRINE: Denies any polyuria or polydipsia. 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 History of Any Multi-Drug Resistant Organisms: None Reported Past Surgical History: Appendectomy, Cardiac Ablation, Coronary Bypass/CABG, Orthopedic Surgery, Orthopedic Surgery Additional Past Surgical History / Comment(s): Right hip replacement, bilateral cataract Past Anesthesia/Blood Transfusion Reactions: No Reported Reaction Past Psychological History: No Psychological Hx Reported Smoking Status: Former smoker Past Alcohol Use History: None Reported Past Drug Use History: None Reported - Past Family History Father Family Medical History: Coronary Artery Disease (CAD) Additional Family Medical History / Comment(s): from an aneurysm Mother Family Medical History: Cancer Medications and Allergies Home Medications Medication Instructions Recorded Confirmed Type Timolol 0.5% Ophth Soln [Timoptic 1 drop BOTH EYES BID 12/24/23 03/05/24 History 0.5% Ophth Soln] Ascorbic Acid [Vitamin C] 500 mg PO BID tab 02/24/24 03/05/24 Rx Clopidogrel [Plavix] 75 mg PO DAILY tab 02/24/24 03/05/24 Rx Ferrous Sulfate [Iron (65 MG 325 mg PO BID tab 02/24/24 03/05/24 Rx Elemental)] INSULIN ASPART (NovoLOG) [NovoLOG 3 unit SQ ACHS each 02/24/24 03/05/24 Rx (formulary)] Magnesium Oxide [Mag-Ox] 400 mg PO BID tab 02/24/24 03/05/24 Rx Metoprolol Tartrate [Lopressor] 25 mg PO BID tab 02/24/24 03/05/24 Rx Potassium Chloride ER [K-Dur 20] 20 meq PO DAILY 30 Days tab 02/24/24 03/05/24 Rx guaiFENesin [Mucinex] 1,200 mg PO Q12HR tab 02/24/24 03/05/24 Rx Acetaminophen Tab [Tylenol] 1,000 mg PO Q6HR PRN 03/05/24 03/05/24 History Amiodarone [Cordarone] 200 mg PO Q48H 03/05/24 03/05/24 History Apixaban [Eliquis] 2.5 mg PO BID 03/05/24 03/05/24 History Aspirin EC [Ecotrin Low Dose] 81 mg PO DAILY 03/05/24 03/05/24 History Atorvastatin [Lipitor] 40 mg PO HS 03/05/24 03/05/24 History Folic Acid/Vit B Complex and C 0.8 mg PO DAILY 03/05/24 03/05/24 History [Lucy-Junie Tablet] Furosemide [Lasix] 20 mg PO DAILY 03/05/24 03/05/24 History INSULIN ASPART (NovoLOG) [NovoLOG See Protocol SQ ACHS 03/05/24 03/05/24 History (formulary)] Insulin Degludec [Tresiba 13 units SQ HS 03/05/24 03/05/24 History Flextouch U-100 Pen] Loratadine [Claritin] 10 mg PO DAILY 03/05/24 03/05/24 History Allergies Allergy/AdvReac Type Severity Reaction Status Date / Time Penicillins Allergy Unknown Verified 04/04/24 17:02 Childhood Physical Exam Vitals: Vital Signs Temp Pulse Resp BP Pulse Ox 04/05/24 06:00 58 L 17 123/62 96 04/05/24 01:19 77 17 120/67 97 04/04/24 21:02 62 19 149/83 93 L 04/04/24 17:57 18 04/04/24 16:57 98.1 F 52 L 20 104/59 94 L Intake and Output 04/04/24 04/05/24 04/05/24 22:59 06:59 14:59 Other: Weight 94.801 kg GENERAL: The patient is alert and oriented x3, not in any acute distress. Well developed, well nourished. HEENT: Pupils are round and equally reacting to light. EOMI. No scleral icterus. No conjunctival pallor. Normocephalic, atraumatic. No pharyngeal erythema. No thyromegaly. CARDIOVASCULAR: S1 and S2 present. No murmurs, rubs, or gallops. -PULMONARY: Chest is clear to auscultation, no wheezing , bilateral basal cr ackles. Mildly tachypneic ABDOMEN: Soft, nontender, nondistended, normoactive bowel sounds. No palpable organomegaly. MUSCULOSKELETAL: No joint swelling or deformity. -EXTREMITIES: No cyanosis, clubbing,. 1-2+ bilateral pitting leg edema. NEUROLOGICAL: Gross neurological examination did not reveal any focal deficits. SKIN: No rashes. no petechiae. Results CBC & Chem 7: 04/05/24 04:13 04/05/24 04:13 Labs: Abnormal Lab Results - Last 24 Hours (Table) 04/04/24 04/04/24 04/05/24 Range/Units 17:35 17:35 04:13 RBC 4.01 L 3.75 L (4.30-5.90) m/uL Hgb 12.4 L 11.5 L (13.0-17.5) gm/dL Hct 37.1 L 34.7 L (39.0-53.0) % RDW 15.8 H 15.6 H (11.5-15.5) % Neutrophils # 7.8 H (1.3-7.7) k/uL Lymphocytes # 0.7 L (1.0-4.8) k/uL BUN 24 H (9-20) mg/dL Creatinine 1.59 H (0.66-1.25) mg/dL Glucose 139 H (74-99) mg/dL 04/05/24 Range/Units 04:13 RBC (4.30-5.90) m/uL Hgb (13.0-17.5) gm/dL Hct (39.0-53.0) % RDW (11.5-15.5) % Neutrophils # (1.3-7.7) k/uL Lymphocytes # (1.0-4.8) k/uL BUN 26 H (9-20) mg/dL Creatinine 1.43 H (0.66-1.25) mg/dL Glucose 135 H (74-99) mg/dL Assessment and Plan Assessment: Acute on chronic systolic CHF with low ejection fraction Acute hypoxic respiratory failure secondary to above Chronic kidney disease stage III History of coronary artery disease Diabetes mellitus Hypertension Hyperlipidemia Plan: IV Lasix Monitor input and output and creatinine Cardiology consult Labs and medication were reviewed.. Continue same treatment. Continue with symptomatic treatment. Resume home medication. Monitor lytes and vitals. DVT and GI prophylaxis. Further recommendations depends on the clinical course of the patient DVT prophylaxis: Subcutaneous heparin GI Prophylaxis: Pepcid PT/OT: Pending Prognosis is guarded
[2024-04-05] MEDS: DAPAGLIFLOZIN PROPANEDIOL 10 MG TABLET PO SCH (10:24)
[2024-04-05] MEDS: METOPROLOL TARTRATE 25 MG TAB PO SCH (10:24)
[2024-04-05] MEDS: AMIODARONE 200 MG TAB PO SCH (10:24)
[2024-04-05] MEDS: CLOPIDOGREL 75 MG TAB PO SCH (10:25)
[2024-04-05] MEDS: APIXABAN 2.5 MG TABLET PO SCH (10:25)
[2024-04-05] MEDS: FUROSEMIDE 10 MG/ML 4 ML VIAL IV SCH (10:26)
[2024-04-05 13:26] LABS: Glucose,Whole Blood 247 mg/dL (70-110)
[2024-04-05] MEDS: TAMSULOSIN 0.4 MG CAP.ER.24H PO STA (13:34)
[2024-04-05] MEDS: INSULIN ASPART (NovoLOG) 100 UNIT/ML VIAL SQ SCH (13:35)
[2024-04-05 17:33] LABS: Glucose,Whole Blood 120 mg/dL (70-110)
[2024-04-05 20:01] LABS: Glucose,Whole Blood 195 mg/dL (70-110)
[2024-04-05] MEDS: ATORVASTATIN 40 MG TAB PO SCH (20:17)
[2024-04-05] MEDS ORDERED: guaiFENesin 600 MG TABLET.ER PO PRN (21:39)
[2024-04-05] MEDS ORDERED: ACETAMINOPHEN TAB 500 MG TAB PO PRN (21:39)
[2024-04-06 05:14] LABS: Glucose,Whole Blood 191 mg/dL (70-110)
--- NOTE | 2024-04-06 07:32 | P.CRDCN ---
History of Present Illness Consult date: 04/05/24 Reason for Consult (text): Acute exacerbation of CHF History of present illness: This is an 86-year-old male patient of Dr. 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 Patient's course was complicated by cardiac arrest and had Micra device placed for complete heart block. He also has a past medical hi story of left bundle branch block, chronic kidney disease stage IIIb, diabetes mellitus type 2, prostate cancer status post radiation treatment, remote history of tobacco use and dependence. We have been asked to evaluate the patient for heart failure. He states he developed shortness of breath starting on Thursday evening. He states he felt like he could not get a good breath and did not sleep during the night. He has dyspnea on exertion for short distances. His also states that his blood pressure was high at home. Patient states that he was urinating at home about every 1/2 hour but it did not seem to be very much. Blood pressure 136/60, heart rate 57, pulse ox 94% on room air. Patient has been started on IV Lasix 40 mg every 12 hours. Patient is seen today in the emergency center waiting for bed on the observation unit. Patient states that he feels a lot better since he has had the IV Lasix. EKG: Ventricularly paced rhythm Chest x-ray: Cardiomegaly with postoperative changes and mild central vascular congestion. Mild left basilar infiltrate or atelectasis with small left pleural effusion. Laboratory studies: WBC 7.6, hemoglobin 11.5, platelet count 196. Electrolytes are normal. BUN 26 creatinine 1.43. Troponins negative x 3. proBNP 8060 Home cardiac medications: Amiodarone 200 mg every 48 hours, Eliquis 2.5 mg twice daily, atorvastatin 40 mg at bedtime, Plavix 75 mg daily, Farxiga 10 mg daily, Lasix 20 mg daily, Lopressor 25 mg twice daily. 02/15/2024: Coronary artery bypass grafting x 3 with POSADA to LAD, sequential saphenous vein graft to first and second obtuse marginal coronary arteries, mitral valve repair with 28 mm annular flex band, modified Vazquez-Maze with complete left-sided lesion set using RF and cryo ablation both precardiac and intracardiac and ligation of the left atrial appendage with 2 layer suture closure. 02/20/2024: Implantation of Micra device for complete heart block, asystolic arrest Echocardiogram performed on 02/21/2024 revealed EF 40 to 45%, mild increased left ventricular wall thickness, no pericardial effusion. Synchronized cardioversion performed on 12/31/2023, successful. Review Of Systems: At the time of my exam: CONSTITUTIONAL: Denies fever or chills. HEENT: Denies blurred vision, vision changes, or eye pain. Denies hemoptysis CARDIOVASCULAR: Denies chest pain. Denies orthopnea. Denies PND. Denies palpitations RESPIRATORY: Denies shortness of breath. GASTROINTESTINAL: Denies abdominal pain. Denies nausea or vomiting. HEMATOLOGIC: Denies bleeding disorders. GENITOURINARY: Denies any blood in urine. SKIN: Denies puritis. Denies rash. Physical examination: Gen: This is an 78-year-old male in no acute distress VS: reviewed HEENT: Head is atraumatic, normocephalic. Pupils equal, round. Sclerae is anicteric. NECK: Supple. No JVD. LUNGS: Clear to auscultation. No wheezes or rhonchi. No intercostal retr actions. HEART: Irregular rate and rhythm. Systolic murmur. ABDOMEN: Soft No tenderness. EXTREMITIES: 1-2+ pedal edema. No calf tenderness. NEUROLOGICAL: Patient is awake, alert and oriented x3. Assessment: Acute on chronic HFrEF Coronary artery disease with previous CABG as above Severe ischemic mitral regurgitation status post annuloplasty ring Paroxysmal atrial fibrillation Diabetes mellitus type 2 Ischemic and tachycardic cardiomyopathy with EF of 20 to 25% with recovery to 40 to 45% Left bundle branch block Chronic kidney disease stage IIIb Prostate cancer s/p radiation treatment Remote history of tobacco use and dependence Plan: Resume patient's home cardiac medications Continue patient on IV Lasix 40 mg every 12 hours Monitor LEIGH, daily weights, electrolytes and renal function Repeat echocardiogram to evaluate EF with comparison to most recent Further recommendations to follow based upon clinical course Thank you kindly for this consultation. Nurse practitioner note has been reviewed, I agree with documented findings and plan of care. Patient was seen and examined. 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 seed [employer] History of Any Multi-Drug Resistant Organisms: None Reported Past Surgical History: Appendectomy, Cardiac Ablation, Coronary Bypass/CABG, Orthopedic Surgery, Orthopedic Surgery Additional Past Surgical History / Comment(s): Right hip replacement, bilateral cataract Past Anesthesia/Blood Transfusion Reactions: No Reported Reaction Past Psychological History: No Psychological Hx Reported Smoking Status: Former smoker Past Alcohol Use History: None Reported Past Drug Use History: None Reported - Past Family History Father Family Medical History: Coronary Artery Disease (CAD) Additional Family Medical History / Comment(s): from an aneurysm Mother Family Medical History: Cancer Medications and Allergies Home Medications Medication Instructions Recorded Confirmed Type Timolol 0.5% Ophth Soln [Timoptic 1 drop BOTH EYES BID 12/24/23 04/05/24 History 0.5% Ophth Soln] Clopidogrel [Plavix] 75 mg PO DAILY tab 02/24/24 04/05/24 Rx Ferrous Sulfate [Iron (65 MG 325 mg PO BID tab 02/24/24 04/05/24 Rx Elemental)] Metoprolol Tartrate [Lopressor] 25 mg PO BID tab 02/24/24 04/05/24 Rx guaiFENesin [Mucinex] 1,200 mg PO Q12HR tab 02/24/24 04/05/24 Rx Acetaminophen Tab [Tylenol] 1,000 mg PO Q6HR PRN 03/05/24 04/05/24 History Amiodarone [Cordarone] 200 mg PO Q48H 03/05/24 04/05/24 History Apixaban [Eliquis] 2.5 mg PO BID 03/05/24 04/05/24 History Atorvastatin [Lipitor] 40 mg PO HS 03/05/24 04/05/24 History Furosemide [Lasix] 20 mg PO DAILY 03/05/24 04/05/24 History INSULIN ASPART (NovoLOG) [NovoLOG See Protocol SQ ACHS 03/05/24 04/05/24 History (formulary)] Insulin Degludec [Tresiba 13 units SQ HS 03/05/24 04/05/24 History Flextouch U-100 Pen] Loratadine [Claritin] 10 mg PO DAILY 03/05/24 04/05/24 History Dapagliflozin Propanediol [Farxiga] 10 mg PO DAILY 04/05/24 04/05/24 History INSULIN ASPART (NovoLOG) [NovoLOG 5 unit SQ ACHS 04/05/24 04/05/24 History (formulary)] Multivitamins, Thera [Multivitamin 1 tab PO DAILY 04/05/24 04/05/24 History (formulary)] Allergies Allergy/AdvReac Type Severity Reaction Status Date / Time Penicillins Allergy Unknown Verified 04/05/24 08:07 Childhood Physical Exam Vitals: Vital Signs Temp Pulse Resp BP Pulse Ox 04/05/24 07:24 57 L 18 136/60 94 L 04/05/24 06:00 58 L 17 123/62 96 04/05/24 01:19 77 17 120/67 97 04/04/24 21:02 62 19 149/83 93 L 04/04/24 17:57 18 04/04/24 16:57 98.1 F 52 L 20 104/59 94 L Intake and Output 04/04/24 04/05/24 04/05/24 22:59 06:59 14:59 Other: Weight 94.801 kg Results 04/05/24 04:13 04/05/24 04:13 Cardiac Enzymes 04/04/24 04/04/24 04/05/24 Range/Units 17:35 17:35 00:21 AST 22 (17-59) U/L Troponin I 0.012 0.016 (0.000-0.034) ng/mL 04/05/24 Range/Units 04:13 AST (17-59) U/L Troponin I 0.019 (0.000-0.034) ng/mL Coagulation 04/04/24 Range/Units 17:35 PT 12.2 (10.0-12.5) sec APTT 28.0 (22.0-30.0) sec CBC 04/04/24 04/05/24 Range/Units 17:35 04:13 WBC 9.1 7.6 (3.8-10.6) k/uL RBC 4.01 L 3.75 L (4.30-5.90) m/uL Hgb 12.4 L 11.5 L (13.0-17.5) gm/dL Hct 37.1 L 34.7 L (39.0-53.0) % Plt Count 208 196 (150-450) k/uL Comprehensive Metabolic Panel 04/04/24 04/05/24 Range/Units 17:35 04:13 Sodium 139 140 (137-145) mmol/L Potassium 4.6 4.0 (3.5-5.1) mmol/L Chloride 104 104 (98-107) mmol/L Carbon Dioxide 26 26 (22-30) mmol/L BUN 24 H 26 H (9-20) mg/dL Creatinine 1.59 H 1.43 H (0.66-1.25) mg/dL Glucose 139 H 135 H (74-99) mg/dL Calcium 9.1 8.9 (8.4-10.2) mg/dL AST 22 (17-59) U/L ALT 18 (4-49) U/L Alkaline Phosphatase 81 (38-126) U/L Total Protein 6.4 (6.3-8.2) g/dL Albumin 3.9 (3.5-5.0) g/dL Current Medications Generic Name Dose Route Start Last Admin Trade Name Freq PRN Reason Stop Dose Admin Furosemide 40 mg 04/05/24 09:00 Furosemide 10 Mg/Ml 4 Ml Vial IV Q12HR JALYEN Naloxone HCl 0.2 mg 04/04/24 21:34 Naloxone 0.4 Mg/Ml 1 Ml Vial IV Q2M PRN Opioid Reversal Intake and Output 04/04/24 04/05/24 04/05/24 22:59 06:59 14:59 Other: Weight 94.801 kg 04/05/24 04:13 04/05/24 04:13
[2024-04-06 08:42] LABS: Basophils # (A) 0.03 X 10*3/uL (0.00-0.10); Basophils % (A) 0.5 %; Eosinophils # (A) 0.24 X 10*3/uL (0.04-0.35); Eosinophils % (A) 3.7 %; HCT 33.4 % (37.2-50.0); HGB 10.6 g/dL (12.0-17.0); Lymphocytes # (A) 1.33 X 10*3/uL (0.90-5.00); Lymphocytes % (A) 20.4 %; MCH 29.4 pg (27.0-32.0); MCHC 31.7 g/dL (32.0-37.0); MCV 92.8 FL (80.0-97.0); Mean Platelet Volume 9.8 FL (9.5-12.2); Monocytes # (A) 0.57 X 10*3/uL (0.20-1.00); Monocytes % (A) 8.8 %; NRBC Per 100 WBC 0 X 10*3/uL (0.00-0.01); Neutrophils # (A) 4.32 X 10*3/uL (1.80-7.70); Neutrophils % (A) 66.3 %; Platelet Count 200 X 10*3/uL (140-440); RDW 14.7 % (11.5-14.5); WBC 6.51 X 10*3/uL (4.50-10.00)
[2024-04-06 08:57] LABS: BUN/Creat Ratio 15.63 Ratio (12.00-20.00); Blood Urea Nitrogen 29.7 mg/dL (9.0-27.0); Calcium 8.5 mg/dL (8.7-10.3); Carbon Dioxide 28.2 mmol/L (21.6-31.8); Chloride 99 mmol/L (96-109); Glucose 208 mg/dL (70-110); Potassium 4.2 mmol/L (3.5-5.5); Sodium 139 mmol/L (135-145)
[2024-04-06] MEDS: LORATADINE 10 MG TAB PO SCH (08:58)
[2024-04-06] MEDS: TAMSULOSIN 0.4 MG CAP.ER.24H PO SCH (08:58)
[2024-04-06] MEDS: FERROUS SULFATE 325 MG TAB PO SCH (08:58)
[2024-04-06] MEDS: TIMOLOL 0.5% OPHTH DROPS 5 ML BTL BOTH EYES SCH (08:59)
--- NOTE | 2024-04-06 11:35 | CA ---
Transthoracic Echo Report Name: Arash Warren Age: 78 Gender: M : 1945 Exam Date: 04/05/2024 15:34 Exam Location: [facility] Ht (in): 68 Wt (lb): 209 Ordering Physician: Dimple Fitch Attending/Referring Phys: [id number], [employer] Line Maintenance Technician Cassy Conde RDCS Procedure CPT: Indications: LVF Cardiac Hx: CABG, mitral valve repair, AICD Technical Quality: Technically difficult study Contrast 1: Definity Total Dose (mL): 2 Contrast 2: Total Dose (mL): MEASUREMENTS (Male / Female) Normal Values 2D ECHO LV Diastolic Diameter PLAX 4.8 cm 4.2 - 5.9 / 3.9 - 5.3 cm LV Systolic Diameter PLAX 3.3 cm IVS Diastolic Thickness 1.0 cm 0.6 - 1.0 / 0.6 - 0.9 cm LVPW Diastolic Thickness 1.2 cm 0.6 - 1.0 / 0.6 - 0.9 cm LV Relative Wall Thickness 0.4 LVOT Diameter 2.0 cm LV Diastolic Volume MOD BP 109.4 cm??? 67 - 155 / 56 - 104 cm??? LV Systolic Volume MOD BP 34.8 cm??? 22 - 58 / 19 - 49 cm??? LV Ejection Fraction MOD BP 68.2 % >= 55 % LV Cardiac Index MOD BP 2206.7 cm???/min???m??? LV Diastolic Volume MOD 4C 100.0 cm??? LV Systolic Volume MOD 4C 31.0 cm??? LV Ejection Fraction MOD 4C 68.9 % LV Cardiac Index MOD 4C 2039.5 cm???/min???m??? LV Diastolic Length 4C 8.6 cm LV Systolic Length 4C 6.9 cm LV Diastolic Volume MOD 2C 118.7 cm??? LV Systolic Volume MOD 2C 38.7 cm??? LV Ejection Fraction MOD 2C 67.4 % LV Cardiac Index MOD 2C 2367.3 cm???/min???m??? LV Diastolic Length 2C 8.5 cm LV Systolic Length 2C 7.1 cm DOPPLER AV Peak Velocity 132.4 cm/s AV Peak Gradient 7.0 mmHg AV Mean Velocity 89.5 cm/s AV Mean Gradient 3.6 mmHg AV Velocity Time Integral 22.1 cm LVOT Peak Velocity 114.0 cm/s LVOT Peak Gradient 5.2 mmHg LVOT Velocity Time Integral 19.5 cm LVOT Stroke Volume 61.9 cm??? LVOT Stroke Volume Index 29.7 ml/m??? LVOT Cardiac Index 1832.0 cm???/min???m??? AV Area Cont Eq vti 2.8 cm??? AV Area Cont Eq pk 2.7 cm??? MV Peak Velocity 100.3 cm/s MV Peak Gradient 4.0 mmHg MV Mean Velocity 53.6 cm/s MV Mean Gradient 1.4 mmHg MV Velocity Time Integral 27.2 cm TR Peak Velocity 274.6 cm/s TR Peak Gradient 30.2 mmHg Right Atrial Pressure 10.0 mmHg Pulmonary Artery Systolic Pressu 40.2 mmHg Right Ventricular Systolic Press 40.2 mmHg PV Peak Velocity 83.5 cm/s PV Peak Gradient 2.8 mmHg FINDINGS Left Ventricle Left ventricular ejection fraction is estimated at 55-60%. Left ventricular cavity size normal. Left ventricular wall thickness normal. No obvious regional wall motion abnormalities. Right Ventricle Mild right ventricular dilatation with reduced function. Mild pulmonary hypertension. Right Atrium Right atrial dilatation. Left Atrium Left atrial dilatation. Mitral Valve Mitral valve repair. Mean gradient 1mmHg. Trace mitral regurgitation. Aortic Valve Trileaflet aortic valve. Aortic valve sclerosis. No aortic stenosis. No aortic regurgitation. Tricuspid Valve Structurally normal tricuspid valve. No tricuspid stenosis. Trace tricuspid regurgitation. Pulmonic Valve Pulmonic valve not well visualized. No pulmonic stenosis. Trace pulmonic regurgitation. Pericardium Small pericardial effusion at the apex. Best shown in apical. Aorta Aortic root and proximal ascending aorta not assessed. CONCLUSIONS Left ventricular ejection fraction 55-60% Status post mitral valve repair with mean gradient 1 mmHg, trace mitral regurgitation Trace tricuspid regurgitation Small pericardial effusion with no tamponade physiology Previewed by: Dr. Harinder Mason DO (Electronically Signed) Final Date: 06 April 2024 11:34
[2024-04-06 11:50] VITALS: BP 117/71; PULSE 65; RESP 15; TEMP 98.5
--- NOTE | 2024-04-06 12:20 | P.PN ---
Subjective Progress Note Date: 04/06/24 Reason for Consult (text): Acute exacerbation of CHF History of present illness: This is an 86-year-old male patient of Dr. Pelletier with past medical history of multivessel coronary artery disease status post CABG with POSADA to LAD, sequential SVG to first and second OM, severe ischemic mitral regurgitation due to posterior mitral leaflet tethering status post repair with annuloplasty ring, ischemic and tachycardic cardiomyopathy with a EF of 20 to 25%, chronic HFrEF, paroxysmal atrial fibrillation status post modified Vazquze-Maze with complete left-sided lesion set using radiofrequency and cryoablation both epicardial and intracardiac, ligation of the left atrial appendage during recent hospitalization. Patient's course was complicated by cardiac arrest and had Micra device placed for complete heart block. He also has a past medical history of left bundle branch block, chronic kidney disease stage IIIb, diabetes mellitus type 2, prostate cancer status post radiation treatment, remote history of tobacco use and dependence. We have been asked to evaluate the patient for heart failure. He states he developed shortness of breath starting on Thursday evening. He states he felt like he could not get a good breath and did not sleep during the night. He has dyspnea on exertion for short distances. His also states that his blood pressure was high at home. Patient states that he was urinating at home about every 1/2 hour but it did not seem to be very much. Blood pressure 136/60, heart rate 57, pulse ox 94% on room air. Patient has been started on IV Lasix 40 mg every 12 hours. Patient is seen today in the emergency center waiting for bed on the observation unit. Patient states that he feels a lot better since he has had the IV Lasix. EKG: Ventricularly paced rhythm Chest x-ray: Cardiomegaly with postoperative changes and mild central vascular congestion. Mild left basilar infiltrate or atelectasis with small left pleural effusion. Laboratory studies: WBC 7.6, hemoglobin 11.5, platelet count 196. Electrolytes are normal. BUN 26 creatinine 1.43. Troponins negative x 3. proBNP 8060 Home cardiac medications: Amiodarone 200 mg every 48 hours, Eliquis 2.5 mg twice daily, atorvastatin 40 mg at bedtime, Plavix 75 mg daily, Farxiga 10 mg daily, Lasix 20 mg daily, Lopressor 25 mg twice daily. 02/15/2024: Coronary artery bypass grafting x 3 with POSADA to LAD, sequential saphenous vein graft to first and second obtuse marginal coronary arteries, mitral valve repair with 28 mm annular flex band, modified Vazquez-Maze with complete left-sided lesion set using RF and cryo ablation both precardiac and intracardiac and ligation of the left atrial appendage with 2 layer suture closure. 02/20/2024: Implantation of Micra device for complete heart block, asystolic arrest Echocardiogram performed on 02/21/2024 revealed EF 40 to 45%, mild increased left ventricular wall thickness, no pericardial effusion. Synchronized cardioversion performed on 12/31/2023, successful. 04/06 Patient is seen and examined. Blood pressure 112/68, heart rate 73, pulse ox 90% on room air. Repeat blood work reveals hemoglobin 10.6. Sodium 139, potassium 4.2, BUN 29 creatinine 1.9. Patient has been maintained on IV Lasix 40 mg every 12 hours. Patient has a documented negative fluid balance. Patient has been seen walking in the hallway with physical therapy. He states he has been urinating a lot. His breathing is significantly improved as well as lower extremity edema. He is now off oxygen. He denies any chest pain or chest pressure. No lightheadedness or dizziness. Noted that creatinine has increased. Discussed with the patient and his that he is cleared for discharge from cardiology with recommendations for increased Lasix at home and also lab work in 1 week. Limited echocardiogram reveals EF of 55 to 60%, status post mitral valve repair with mean gradient 1 mmHg, trace mitral regurgitation, trace tricuspid regur gitation, small pericardial effusion with no tamponade physiology. Physical examination: Gen: This is an 78-year-old male in no acute distress VS: reviewed HEENT: Head is atraumatic, normocephalic. Pupils equal, round. Sclerae is anicteric. NECK: Supple. No JVD. LUNGS: Clear to auscultation. No wheezes or rhonchi. No intercostal retractions. HEART: Irregular rate and rhythm. Systolic murmur. ABDOMEN: Soft No tenderness. EXTREMITIES: 1-2+ pedal edema. No calf tenderness. NEUROLOGICAL: Patient is awake, alert and oriented x3. Assessment: Acute on chronic HFrEF Coronary artery disease with previous CABG as above Severe ischemic mitral regurgitation status post annuloplasty ring Paroxysmal atrial fibrillation Diabetes mellitus type 2 Ischemic and tachycardic cardiomyopathy with EF of 20 to 25% with recovery to 40 to 45% Left bundle branch block Chronic kidney disease stage IIIb Prostate cancer s/p radiation treatment Remote history of tobacco use and dependence Acute kidney injury Plan: Continue patient's home cardiac medications Patient is cleared from cardiology. Recommend increasing Lasix at home to 40 mg daily Repeat blood work in 1 week to monitor renal function and electrolytes Nurse practitioner note has been reviewed, I agree with documented findings and plan of care. Patient was seen and examined. Objective - Vital Signs Vital signs: Vital Signs Temp 98.0 F 04/06/24 07:34 Pulse 73 04/06/24 07:34 Resp 12 04/06/24 07:34 BP 112/68 04/06/24 07:34 Pulse Ox 90 L 04/06/24 07:00 FiO2 Intake & Output 04/05/24 04/06/24 04/06/24 18:59 06:59 18:59 Intake Total 222 Output Total 800 1000 Balance -578 -1000 Weight 94.801 kg 85.2 kg Intake: Oral 222 Output: Urine 800 1000 Straight 800 Other: Voiding Method Urinal Toilet Urinal - Labs CBC & Chem 7: 04/06/24 03:52 04/06/24 03:52 Labs: Abnormal Lab Results - Last 24 Hours (Table) 04/05/24 04/05/24 04/05/24 Range/Units 13:25 17:31 20:00 RBC (4.10-5.60) X 10*6/uL Hgb (12.0-17.0) g/dL Hct (37.2-50.0) % MCHC (32.0-37.0) g/dL RDW (11.5-14.5) % POC Glucose (mg/dL) 247 H 120 H 195 H (70-110) mg/dL 04/06/24 04/06/24 Range/Units 03:52 05:11 RBC 3.60 L (4.10-5.60) X 10*6/uL Hgb 10.6 L (12.0-17.0) g/dL Hct 33.4 L (37.2-50.0) % MCHC 31.7 L (32.0-37.0) g/dL RDW 14.7 H (11.5-14.5) % POC Glucose (mg/dL) 191 H (70-110) mg/dL
[2024-04-06 12:30] LABS: Glucose,Whole Blood 261 mg/dL (70-110)
[2024-04-07] MEDS ORDERED: FUROSEMIDE 40 MG TAB PO SCH (09:00)
--- NOTE | 2024-04-11 14:17 | P.DS ---
Providers Date of admission: 04/04/24 21:35 Attending physician: Wilfred Schultz Consults: 04/04/24 21:34 Consult Physician Urgent Consulting Provider: [facility] Consult Reason/Comments: aechf Do you want consulting provider notified?: Yes Primary care physician: Ton Nash [facility] Hospital Course: Diagnoses: Acute on chronic systolic CHF with low ejection fraction Acute hypoxic respiratory failure secondary to above Acute urinary retention, improved upon discharge Chronic kidney disease stage III History of coronary artery disease Diabetes mellitus Hypertension Hyperlipidemia Hospital course: This is a pleasant 78 years old male. He is a patient of Dr. Tran, his mud engineer is Dr. Pelletier. He has history of heart failure with low ejection fraction of 25 to 30% and presents today with worsening shortness of breath at rest and exertion for the last 2 days. Patient evaluated by mud engineer, treated with diuretics. Patient showed interval improvement On the day of discharge she denies chest pain or dyspnea. No other new complaint. Patient was cleared for discharge by mud engineer. Acute urinary retention, improved upon discharge. His postvoid residual upon discharge was 100-150. However patient referred to urologist Dr. Pozo for outpatient care and he agrees to call and make appointment Problems and management plan were discussed with the patient and he verbalized u nderstanding and acceptance Patient was found stable and can be discharged home in guarded prognosis however he needs follow-up as an outpatient. Patient was instructed to follow up with PCP Dr. Tran within one week and patient agrees Patient was instructed to follow-up with Dr. Pelletier in 1 to 2 weeks after discharge and he agrees Physical exam Gen: patient is a AAOx3, no distress CVS: S1-S2, RRR, no murmur Lungs: B/L CTA, no wheezing Abdomen: soft, no distention, no tenderness, positive bowel sounds Extremity: no leg edema or induration Time spent more than 35 minutes Patient Condition at Discharge: Stable Plan - Discharge Summary New Discharge Prescriptions: New Furosemide [Lasix] 40 mg PO DAILY #30 tab Continue Timolol 0.5% Ophth Soln [Timoptic 0.5% Ophth Soln] 1 drop BOTH EYES BID Metoprolol Tartrate [Lopressor] 25 mg PO BID tab Amiodarone [Cordarone] 200 mg PO Q48H Loratadine [Claritin] 10 mg PO DAILY INSULIN ASPART (NovoLOG) [NovoLOG (formulary)] See Protocol SQ ACHS Apixaban [Eliquis] 2.5 mg PO BID Multivitamins, Thera [Multivitamin (formulary)] 1 tab PO DAILY INSULIN ASPART (NovoLOG) [NovoLOG (formulary)] 5 unit SQ ACHS Ferrous Sulfate [Iron (65 MG Elemental)] 325 mg PO BID tab guaiFENesin [Mucinex] 1,200 mg PO Q12HR tab Clopidogrel [Plavix] 75 mg PO DAILY tab Atorvastatin [Lipitor] 40 mg PO HS Insulin Degludec [Tresiba Flextouch U-100 Pen] 13 units SQ HS Acetaminophen Tab [Tylenol] 1,000 mg PO Q6HR PRN PRN Reason: Fever And/ Or Pain Dapagliflozin Propanediol [Farxiga] 10 mg PO DAILY Discontinued Furosemide [Lasix] 20 mg PO DAILY Discharge Medication List Timolol 0.5% Ophth Soln [Timoptic 0.5% Ophth Soln] 1 drop BOTH EYES BID 12/24/23 [History] Clopidogrel [Plavix] 75 mg PO DAILY tab 02/24/24 [Rx] Ferrous Sulfate [Iron (65 MG Elemental)] 325 mg PO BID tab 02/24/24 [Rx] Metoprolol Tartrate [Lopressor] 25 mg PO BID tab 02/24/24 [Rx] guaiFENesin [Mucinex] 1,200 mg PO Q12HR tab 02/24/24 [Rx] Acetaminophen Tab [Tylenol] 1,000 mg PO Q6HR PRN 03/05/24 [History] Amiodarone [Cordarone] 200 mg PO Q48H 03/05/24 [History] Apixaban [Eliquis] 2.5 mg PO BID 03/05/24 [History] Atorvastatin [Lipitor] 40 mg PO HS 03/05/24 [History] INSULIN ASPART (NovoLOG) [NovoLOG (formulary)] See Protocol SQ ACHS 03/05/24 [History] Insulin Degludec [Tresiba Flextouch U-100 Pen] 13 units SQ HS 03/05/24 [History] Loratadine [Claritin] 10 mg PO DAILY 03/05/24 [History] Dapagliflozin Propanediol [Farxiga] 10 mg PO DAILY 04/05/24 [History] INSULIN ASPART (NovoLOG) [NovoLOG (formulary)] 5 unit SQ ACHS 04/05/24 [History] Multivitamins, Thera [Multivitamin (formulary)] 1 tab PO DAILY 04/05/24 [History] Furosemide [Lasix] 40 mg PO DAILY #30 tab 04/06/24 [Rx] Follow up Appointment(s)/Referral(s): Umair Pelletier MD [Medical Doctor] - 04/13/24 11:15 am Ton Nash DO [Primary Care Provider] - 1-2 days Chino Pozo MD [STAFF PHYSICIAN] - 1 Week (urologist for urinary retention) Patient Instructions/Handouts: Heart Failure (ER), Dyspnea (DC) Activity/Diet/Wound Care/Special Instructions: heart healthy diet activity is restricted till you see your doctor we recommend you check your glucose 4 times per day before each meal and at bed time, keep the results in a logbook and bring it to your doctor on your appointment date if your glucose is less than 70 or more than 400 then call 911 and come to emergency room Discharge Disposition: HOME SELF-CARE
== END 2024-04-06 13:37 | disposition home or self-care (01) ==
LOC: EC 16:44 → 6NMEDSUR 21:35
PROVIDERS: ADMIT Hospitalist; ATTEND Hospitalist
DX: I13.0 Hypertensive heart and chronic kidney disease with heart failure and stage 1 through stage 4 chronic kidney disease, or unspecified chronic kidney disease (principal); I50.23 Acute on chronic systolic (congestive) heart failure; E11.22 Type 2 diabetes mellitus with diabetic chronic kidney disease; N18.32 Chronic kidney disease, stage 3b; J96.01 Acute respiratory failure with hypoxia; N17.9 Acute kidney failure, unspecified; I25.5 Ischemic cardiomyopathy; I34.0 Nonrheumatic mitral (valve) insufficiency; I25.10 Atherosclerotic heart disease of native coronary artery without angina pectoris; E78.5 Hyperlipidemia, unspecified; I48.0 Paroxysmal atrial fibrillation; Z88.0 Allergy status to penicillin; Z79.02 Long term (current) use of antithrombotics/antiplatelets; Z79.4 Long term (current) use of insulin; Z79.01 Long term (current) use of anticoagulants; Z79.899 Other long term (current) drug therapy; Z95.1 Presence of aortocoronary bypass graft; Z92.3 Personal history of irradiation; Z85.46 Personal history of malignant neoplasm of prostate; Z87.891 Personal history of nicotine dependence; Z79.82 Long term (current) use of aspirin; Z79.84 Long term (current) use of oral hypoglycemic drugs; Z86.74 Personal history of sudden cardiac arrest
CPT/HCPCS: 96376 ×3; 96374; 99285; 36415; 93005; 97162; 97166; 83880; 80053; 80048 ×2; 83735; 84484 ×2; 85025 ×3; 85610; 85730; 71046; G0378 ×3; C8924; J1940 ×3; Q9957; 93308

== ENCOUNTER → 2024-05-05 | Outpatient (CLI) | payer MEDICARE ==
[2024-05-05 15:57] LABS: HGB 13.3 g/dL (12.0-17.0); MCH 29.8 pg (27.0-32.0); MCHC 32.4 g/dL (32.0-37.0); MCV 91.9 FL (80.0-97.0); Mean Platelet Volume 9.7 FL (9.5-12.2); NRBC Per 100 WBC 0 X 10*3/uL (0.00-0.01); Platelet Count 169 X 10*3/uL (140-440); RBC 4.46 X 10*6/uL (4.10-5.60); RDW 14.3 % (11.5-14.5); WBC 4.74 X 10*3/uL (4.50-10.00)
[2024-05-05 16:06] LABS: ALT 18 U/L (8-49); AST 23 U/L (13-35); Albumin 4.3 g/dL (3.8-4.9); Albumin/Globulin Ratio 1.95 Ratio (1.60-3.17); Alkaline Phosphatase 81 U/L (41-126); BUN/Creat Ratio 21.53 Ratio (12.00-20.00); Blood Urea Nitrogen 32.3 mg/dL (9.0-27.0); Calcium 9.3 mg/dL (8.7-10.3); Carbon Dioxide 26.7 mmol/L (21.6-31.8); Chloride 103 mmol/L (96-109); Chol/HDL Ratio 2.23 Ratio; Globulin 2.2 g/dL (1.6-3.3); Glucose 143 mg/dL (70-110); LDL Cholesterol,Calculated 48.1 mg/dL (0.0-131.0); Potassium 4.8 mmol/L (3.5-5.5); Sodium 141 mmol/L (135-145); Total Bilirubin 0.8 mg/dL (0.3-1.2); Total Protein 6.5 g/dL (6.2-8.2)
[2024-05-06 00:16] LABS: NT-Pro-B-Type Natriuretic Pept 1126 pg/mL (0-450)
== END | disposition home or self-care (01) ==
LOC: LABWHC1 09:33
PROVIDERS: ATTEND Student in an Organized Health Care Education/Training Program
DX: I50.9 Heart failure, unspecified (principal); D72.9 Disorder of white blood cells, unspecified; R79.89 Other specified abnormal findings of blood chemistry; E78.5 Hyperlipidemia, unspecified
CPT/HCPCS: 36415; 80053; 80061; 83880; 85027

== ENCOUNTER → 2024-05-26 | Outpatient (CLI) | payer MEDICARE ==
[2024-05-26 19:07] LABS: HCT 40.3 % (37.2-50.0); HGB 13.3 g/dL (12.0-17.0); MCH 30.2 pg (27.0-32.0); MCV 91.4 FL (80.0-97.0); Mean Platelet Volume 9.8 FL (9.5-12.2); NRBC Per 100 WBC 0 X 10*3/uL (0.00-0.01); Platelet Count 185 X 10*3/uL (140-440); RBC 4.41 X 10*6/uL (4.10-5.60); RDW 14.8 % (11.5-14.5); WBC 6.76 X 10*3/uL (4.50-10.00)
[2024-05-26 22:18] LABS: NT-Pro-B-Type Natriuretic Pept 1835 pg/mL (0-450)
[2024-05-26 22:20] LABS: ALT 19 U/L (8-49); AST 18 U/L (13-35); Albumin 4.5 g/dL (3.8-4.9); Albumin/Globulin Ratio 2.05 Ratio (1.60-3.17); Alkaline Phosphatase 89 U/L (41-126); BUN/Creat Ratio 23.29 Ratio (12.00-20.00); Blood Urea Nitrogen 39.6 mg/dL (9.0-27.0); Calcium 9.1 mg/dL (8.7-10.3); Carbon Dioxide 24.9 mmol/L (21.6-31.8); Chloride 104 mmol/L (96-109); Globulin 2.2 g/dL (1.6-3.3); Glucose 184 mg/dL (70-110); Potassium 4.7 mmol/L (3.5-5.5); Sodium 143 mmol/L (135-145); Total Bilirubin 0.7 mg/dL (0.3-1.2); Total Protein 6.7 g/dL (6.2-8.2)
== END | disposition home or self-care (01) ==
LOC: LABWHC1 14:15
PROVIDERS: ATTEND Psychiatry & Neurology Psychiatry
DX: Z13.6 Encounter for screening for cardiovascular disorders (principal); D72.9 Disorder of white blood cells, unspecified; I50.9 Heart failure, unspecified; E03.9 Hypothyroidism, unspecified; E78.5 Hyperlipidemia, unspecified; E11.9 Type 2 diabetes mellitus without complications; R79.89 Other specified abnormal findings of blood chemistry
CPT/HCPCS: 36415; 80053; 83880; 85027

== ENCOUNTER → 2024-06-02 | Outpatient (CLI) | payer MEDICARE ==
[2024-06-02 15:22] LABS: BUN/Creat Ratio 20.19 Ratio (12.00-20.00); Blood Urea Nitrogen 32.3 mg/dL (9.0-27.0); Calcium 9.3 mg/dL (8.7-10.3); Carbon Dioxide 25.7 mmol/L (21.6-31.8); Chloride 106 mmol/L (96-109); Glucose 176 mg/dL (70-110); Magnesium 2.3 mg/dL (1.5-2.4); Phosphorus 4.5 mg/dL (2.4-5.1); Potassium 4.3 mmol/L (3.5-5.5); Sodium 144 mmol/L (135-145)
[2024-06-02 15:55] LABS: Appearance,Urine Clear (Clear); Bilirubin,Urine Negative (Negative); Blood,Urine Negative (Negative); Color,Urine Yellow (Yellow); Ketones,Urine Negative (Negative); Nitrite,Urine Negative (Negative); Specific Gravity,Urine 1.012 (1.001-1.030); Urobilinogen,Urine 0.2 E.U./DL
[2024-06-02 17:02] LABS: Basophils # (A) 0.04 X 10*3/uL (0.00-0.10); Basophils % (A) 0.7 %; Eosinophils # (A) 0.34 X 10*3/uL (0.04-0.35); Eosinophils % (A) 6.3 %; HCT 39.1 % (37.2-50.0); HGB 12.8 g/dL (12.0-17.0); Lymphocytes % (A) 24.2 %; MCH 30.7 pg (27.0-32.0); MCHC 32.7 g/dL (32.0-37.0); MCV 93.8 FL (80.0-97.0); Monocytes # (A) 0.25 X 10*3/uL (0.20-1.00); Monocytes % (A) 4.7 %; NRBC Per 100 WBC 0 X 10*3/uL (0.00-0.01); Neutrophils # (A) 3.43 X 10*3/uL (1.80-7.70); Neutrophils % (A) 63.9 %; Platelet Count 173 X 10*3/uL (140-440); RBC 4.17 X 10*6/uL (4.10-5.60); RDW 14.7 % (11.5-14.5); WBC 5.37 X 10*3/uL (4.50-10.00)
[2024-06-02 20:18] LABS: Urine Creatinine 29.8 mg/dL (28.0-259.0)
== END | disposition home or self-care (01) ==
LOC: LABWHC1 11:02
PROVIDERS: ATTEND Internal Medicine
DX: N25.81 Secondary hyperparathyroidism of renal origin (principal); D64.9 Anemia, unspecified; N39.0 Urinary tract infection, site not specified
CPT/HCPCS: 36415; 80048; 81003; 82043; 82570; 83735; 83970; 84100; 85025

== ENCOUNTER → 2024-08-18 | Outpatient (CLI) | payer MEDICARE ==
[2024-08-18 15:18] LABS: NT-Pro-B-Type Natriuretic Pept 958 pg/mL (0-450)
[2024-08-18 15:20] LABS: HCT 36.7 % (37.2-50.0); HGB 12.4 g/dL (12.0-17.0); MCH 31.9 pg (27.0-32.0); MCHC 33.8 g/dL (32.0-37.0); MCV 94.3 FL (80.0-97.0); NRBC Per 100 WBC 0 X 10*3/uL (0.00-0.01); Platelet Count 171 X 10*3/uL (140-440); RBC 3.89 X 10*6/uL (4.10-5.60); WBC 6.07 X 10*3/uL (4.50-10.00)
[2024-08-18 15:28] LABS: BUN/Creat Ratio 21.88 Ratio (12.00-20.00); Blood Urea Nitrogen 37.2 mg/dL (9.0-27.0); Chol/HDL Ratio 2.25 Ratio; Glucose 144 mg/dL (70-110); VLDL Calculation 14.84 mg/dL (5.00-40.00)
[2024-08-18 15:29] LABS: ALT 16 U/L (8-49); AST 18 U/L (13-35); Albumin 4.2 g/dL (3.8-4.9); Albumin/Globulin Ratio 1.83 Ratio (1.60-3.17); Alkaline Phosphatase 85 U/L (41-126); Calcium 9.4 mg/dL (8.7-10.3); Carbon Dioxide 26.1 mmol/L (21.6-31.8); Chloride 102 mmol/L (96-109); Globulin 2.3 g/dL (1.6-3.3); LDL Cholesterol,Calculated 50.1 mg/dL (0.0-131.0); Potassium 4.9 mmol/L (3.5-5.5); Sodium 141 mmol/L (135-145); Total Protein 6.5 g/dL (6.2-8.2)
== END | disposition home or self-care (01) ==
LOC: LABWHC1 09:01
PROVIDERS: ATTEND Student in an Organized Health Care Education/Training Program
DX: D72.9 Disorder of white blood cells, unspecified (principal); R79.89 Other specified abnormal findings of blood chemistry; E11.9 Type 2 diabetes mellitus without complications; I50.9 Heart failure, unspecified; E78.5 Hyperlipidemia, unspecified
CPT/HCPCS: 36415; 80053; 80061; 83036; 83880; 85027

== ENCOUNTER → 2024-11-08 | Outpatient (CLI) | payer MEDICARE ==
[2024-11-08 16:15] LABS: HCT 36.6 % (37.2-50.0); HGB 12.2 g/dL (12.0-17.0); MCH 31.6 pg (27.0-32.0); MCHC 33.3 g/dL (32.0-37.0); MCV 94.8 FL (80.0-97.0); Mean Platelet Volume 10.3 FL (9.5-12.2); NRBC Per 100 WBC 0 X 10*3/uL (0.00-0.01); Platelet Count 166 X 10*3/uL (140-440); RBC 3.86 X 10*6/uL (4.10-5.60); RDW 13.6 % (11.5-14.5); WBC 6.15 X 10*3/uL (4.50-10.00)
[2024-11-08 16:47] LABS: NT-Pro-B-Type Natriuretic Pept 1429 pg/mL (0-450)
[2024-11-08 16:51] LABS: ALT 14 U/L (8-49); AST 15 U/L (13-35); Albumin 4.2 g/dL (3.8-4.9); Alkaline Phosphatase 73 U/L (41-126); BUN/Creat Ratio 20.38 Ratio (12.00-20.00); Blood Urea Nitrogen 32.6 mg/dL (9.0-27.0); Calcium 9.2 mg/dL (8.7-10.3); Carbon Dioxide 23.1 mmol/L (21.6-31.8); Chloride 109 mmol/L (96-109); Chol/HDL Ratio 2.26 Ratio; Globulin 2.1 g/dL (1.6-3.3); Glucose 148 mg/dL (70-110); LDL Cholesterol,Calculated 41.6 mg/dL (0.0-131.0); Potassium 4.6 mmol/L (3.5-5.5); Sodium 144 mmol/L (135-145); Total Bilirubin 0.9 mg/dL (0.3-1.2); Total Protein 6.3 g/dL (6.2-8.2)
== END | disposition home or self-care (01) ==
LOC: LABWHC1 10:05
PROVIDERS: ATTEND Student in an Organized Health Care Education/Training Program
DX: I50.9 Heart failure, unspecified (principal); E11.9 Type 2 diabetes mellitus without complications; E78.5 Hyperlipidemia, unspecified; D72.9 Disorder of white blood cells, unspecified; R79.89 Other specified abnormal findings of blood chemistry
CPT/HCPCS: 36415; 80053; 80061; 83036; 83880; 85027

== ENCOUNTER → 2024-12-22 | Outpatient (CLI) | payer MEDICARE ==
[2024-12-22 19:52] LABS: HCT 37.0 % (37.2-50.0); HGB 12.4 g/dL (12.0-17.0); MCH 31.8 pg (27.0-32.0); MCHC 33.5 g/dL (32.0-37.0); MCV 94.9 FL (80.0-97.0); NRBC Per 100 WBC 0 X 10*3/uL (0.00-0.01); Platelet Count 202 X 10*3/uL (140-440); RBC 3.90 X 10*6/uL (4.10-5.60); RDW 13.7 % (11.5-14.5); WBC 7.65 X 10*3/uL (4.50-10.00)
[2024-12-22 21:10] LABS: BUN/Creat Ratio 16.55 Ratio (12.00-20.00); Blood Urea Nitrogen 33.1 mg/dL (9.0-27.0); Carbon Dioxide 23.7 mmol/L (21.6-31.8); Chloride 105 mmol/L (96-109); Glucose 132 mg/dL (70-110); Potassium 4.1 mmol/L (3.5-5.5); Sodium 142 mmol/L (135-145)
[2024-12-22 21:11] LABS: ALT 14 U/L (8-49); AST 15 U/L (13-35); Albumin 4.5 g/dL (3.8-4.9); Albumin/Globulin Ratio 2.05 Ratio (1.60-3.17); Alkaline Phosphatase 93 U/L (41-126); Anion Gap 13.30 mmol/L (4.00-12.00); Calcium 9.2 mg/dL (8.7-10.3); Globulin 2.2 g/dL (1.6-3.3); Total Protein 6.7 g/dL (6.2-8.2)
[2024-12-22 22:10] LABS: NT-Pro-B-Type Natriuretic Pept 856 pg/mL (0-450)
== END | disposition home or self-care (01) ==
LOC: LABWHC1 14:26
PROVIDERS: ATTEND Student in an Organized Health Care Education/Training Program
DX: I50.9 Heart failure, unspecified (principal); D72.9 Disorder of white blood cells, unspecified; R53.83 Other fatigue
CPT/HCPCS: 36415; 80053; 83880; 85027